=== PATIENT | female | born 1955 | race Caucasian/White ===

== ENCOUNTER → 2019-01-03 15:30 | Outpatient (CLI) | payer BC, SELFPAY ==
--- NOTE | 2019-01-03 15:33 | MM_ITS ---
PROCEDURE: MM DIG SCREENING MAMM BI W/CAD CLINICAL INDICATION: SCREENING There is a history of breast cancer patient's paternal aunt diagnosed before menopause. COMPARISON: DMSB DIG MAMM-SCREEN [facility] from 11/29/2012 DMSB DIG MAMM-SCREEN [facility] from 09/04/2014 DMSB DIG MAMM-SCREEN [facility] W/CAD from 09/22/2016 TECHNIQUE: Standard CC and MLO images were obtained. R2 CAD reviewed. FINDINGS: Prominent diffuse heterogenic fibroglandular densities are seen in both breasts. There is benign-appearing calcification right breast. There is a stable asymmetric density near the axillary tail left breast likely asymmetric glandular tissue there is no suspicious lesion and no suspicious microcalcifications. IMPRESSION: Diffusely dense parenchymal pattern with no suspicious lesions seen BI-RAD Category: 2 Benign Finding(s) FOLLOW-UP: 1YR 1 Year Follow-up (A letter has been sent to the patient regarding results of the study.) Dictated by: Dr. Calin Khan MD 01/08/2019 09:[address] Calin Khan MD in [place] 01/08/2019 09:29
== END ==
PROVIDERS: PCP Internal Medicine Adolescent Medicine; Visit Provider Nurse Practitioner Family
DX: Z12.31 Encounter for screening mammogram for malignant neoplasm of breast (principal)
CPT/HCPCS: 77067

== ENCOUNTER → 2020-08-20 09:57 | Outpatient (CLI) | payer BC, SELFPAY ==
--- NOTE | 2020-08-20 10:06 | XR_ITS ---
PROCEDURE: XR SHOULDER RT MIN 2V CLINICAL INDICATION: RT ANTERIOR SHOULDER PAIN COMPARISON: No exams were available for comparison FINDINGS: Three views show no fracture or dislocation. Some degenerative change of the acromioclavicular and glenohumeral joints. Visualized right upper lung is normal. IMPRESSION: No acute fracture or dislocation. Moderate degenerative change of the acromioclavicular and glenohumeral joints. Dictated by: Phong Hahn MD 08/20/2020 10:28 Phong Hahn MD in [place] 08/20/2020 10:28
== END ==
PROVIDERS: PCP Internal Medicine Adolescent Medicine; Visit Provider Internal Medicine Adolescent Medicine
DX: M25.511 Pain in right shoulder (principal)
CPT/HCPCS: 73030

== ENCOUNTER → 2021-12-25 13:17 | Outpatient (CLI) | payer MEDICARE, OTHER, SELFPAY | PROVIDERS: PCP Nurse Practitioner Family; Visit Provider Neurological Surgery | DX: Z01.812 Encounter for preprocedural laboratory examination (principal); Z20.822 Contact with and (suspected) exposure to COVID-19 | CPT/HCPCS: C9803; U0003; U0005 ==

== ENCOUNTER → 2021-12-29 08:13 | Outpatient (CLI) | payer MEDICARE, OTHER, SELFPAY ==
--- NOTE | 2021-12-29 08:17 | XR_ITS ---
FINAL REPORT TECHNIQUE: Bone mineral density was calculated of the lumbar spine, forearm and hip. CLINICAL HISTORY: .post menopausal,lt hip fx. FINDINGS: DEXA BONE DENSITY AXIAL SKELETON Using L1-4, the bone mineral density of the spine is 1.119 g/cm2, corresponding to T-score of 0.7. Using the right hip, the bone mineral density of the femoral neck is 0.851 g/cm2, corresponding to a T-score of 0.7. Using the left forearm, the bone mineral density of the distal 1/3 is 0.658 g/cm2, corresponding to a T-score of -0.6. NOTE: T-score: Standard deviation compared with peak bone mass of young adult mean. *Following the recommendations of the International Society of Bone densitometry, classification of hip BMD is based on the lower of two T-scores; total hip or femoral neck. IMPRESSION: Normal bone mineral density of the lumbar spine, forearm and hip. Reviewed, Interpreted and Dictated by Jorje Love III, MD Transcribed by Aarti Warren Authenticated and [facility]
--- NOTE | 2021-12-29 08:18 | MM_ITS ---
PROCEDURE INFORMATION: Exam: MG Bilateral Screening 3D Mammography Exam date and time: 12/29/2021 8:14 AM Age: 66 years old Clinical indication: Screening examination. Her daughter and maternal aunt had breast cancer. TECHNIQUE: Imaging protocol: Bilateral Screening tomosynthesis and 2D mammography including computer-aided detection (CAD) when performed. COMPARISON: 1. MG MM DIG SCREENING MAMM BI W/CAD 01/03/2019 3:57 PM 2. MG DMSB DIG MAMM-SCREEN [facility] W/CAD 09/22/2016 1:03 PM 3. MG DMSB DIG MAMM-SCREEN [facility] 09/04/2014 5:03 PM 4. MG DMSB DIG MAMM-SCREEN [facility] 11/29/2012 11:10 AM FINDINGS: MAMMOGRAPHY: Breast composition: The breasts are heterogeneously dense, which may obscure small masses. Mass: No suspicious mass. Architectural distortion: None. Calcifications: No suspicious calcifications. Asymmetric density: None. Skin thickening: None. Axillary adenopathy: None. IMPRESSION: No mammographic evidence of malignancy. Annual screening is recommended unless otherwise clinically indicated. ASSESSMENT: BI-RADS Category 1: Negative
--- NOTE | 2021-12-29 08:18 | US_ITS ---
FINAL REPORT CLINICAL HISTORY: RENAL CYST FINDINGS: RENAL ULTRASOUND Ultrasound images of the kidneys were obtained. Limited images of the liver parenchyma demonstrates normal echogenicity. Incidental note is made of gallstones in the gallbladder. The spleen is normal in size. The right kidney measures 10.2 cm in length. It is normal echogenicity. There is no hydronephrosis. There is a suspected parapelvic renal cyst measuring 2.3 cm. The left kidney measures 12 cm in length. It is normal echogenicity. There are several parapelvic cyst versus mild hydronephrosis. IMPRESSION: Suspected bilateral parapelvic cysts as above. If indicated, renal mass protocol CT may be helpful. Reviewed, Interpreted and Dictated by Jorje Love III, MD Transcribed by Caty Polk Authenticated and [facility]
== END ==
PROVIDERS: PCP Internal Medicine Adolescent Medicine; Visit Provider Internal Medicine Adolescent Medicine
DX: Z12.31 Encounter for screening mammogram for malignant neoplasm of breast (principal); Z78.0 Asymptomatic menopausal state; N28.1 Cyst of kidney, acquired
CPT/HCPCS: 76770; 77063; 77067; 77080

== ENCOUNTER → 2022-01-19 11:57 | Outpatient (CLI) | payer MEDICARE, OTHER, SELFPAY ==
--- NOTE | 2022-01-19 | XR_ITS ---
FINAL REPORT CLINICAL HISTORY: .OTHER OVERLAP SYNDROMES, OTHER FATIGUE. 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 FINDINGS: RIGHT HAND Three views demonstrate no acute fracture. There is no dislocation. The visualized joint spaces are normally aligned. There is zlmh-vj-[id number] narrowing of the DIP and PIP joints there is no bony erosion or periosteal reaction. The soft tissues are unremarkable. IMPRESSION: Narrowing of the DIP and PIP joints consistent with osteoarthritis. Reviewed, Interpreted and Dictated by Billy Fernandez MD Transcribed by Aarti Warren Authenticated and . [facility]
--- NOTE | 2022-01-19 | XR_ITS ---
FINAL REPORT CLINICAL HISTORY: .OTHER OVERLAP SYNDROMES, OTHER FATIGUE. 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 FINDINGS: RIGHT FOOT Three views of the right foot demonstrate no acute fracture or dislocation. There is mild to moderate hypertrophic changes of the 1st MTP joint. The soft tissues are unremarkable. IMPRESSION: Wzcc-mi-jfwhneyo hypertrophic changes of the 1st MTP joint. Reviewed, Interpreted and Dictated by Billy Fernandez MD Transcribed by Aarti Warren Authenticated and [facility]
--- NOTE | 2022-01-19 | XR_ITS ---
FINAL REPORT CLINICAL HISTORY: .OTHER OVERLAP SYNDROMES, OTHER FATIGUE. BMI, CARE HOME DRUG THERAPY. FINDINGS: LEFT FOOT Three views of the left foot demonstrate no acute fracture or dislocation. There is mild to moderate hypertrophic changes of the 1st MTP joint. The soft tissues are unremarkable. IMPRESSION: Wlzc-yt-jqmlmtox hypertrophic changes of the 1st MTP joint. Reviewed, Interpreted and Dictated by Billy Fernandez MD Transcribed by Aarti Warren Authenticated and . [facility]
--- NOTE | 2022-01-19 12:04 | XR_ITS ---
FINAL REPORT TECHNIQUE: Chest PA & Lateral CLINICAL HISTORY: .OTHER OVERLAP SYNDROMES, OTHER FATIGUE. 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 COMPARISON: 07/24/2017 FINDINGS: 2 views of the chest were performed. The heart size is normal. The mediastinum is within normal limits. There is no acute cardiopulmonary process. There are no pleural effusions. There is no pneumothorax. The bony thorax appears intact. IMPRESSION: No acute cardiopulmonary process. Reviewed, Interpreted and Dictated by Billy Fernandez MD Transcribed by Aarti Warren Authenticated and [facility]
--- NOTE | 2022-01-19 12:04 | XR_ITS ---
FINAL REPORT CLINICAL HISTORY: .OTHER OVERLAP SYNDROMES, OTHER FATIGUE. BMI, DETENTION DRUG THERAPY. FINDINGS: LEFT HAND Three views demonstrate no acute fracture. There is no dislocation. The visualized joint spaces are normally aligned. There is ivzq-we-uhunrveb narrowing of the DIP and PIP joints there is no bony erosion or periosteal reaction. The soft tissues are unremarkable. IMPRESSION: Narrowing of the DIP and PIP joints consistent with osteoarthritis. Reviewed, Interpreted and Dictated by Billy Fernandez MD Transcribed by Aarti Warren Authenticated and [facility]
== END ==
PROVIDERS: PCP Internal Medicine Adolescent Medicine; Visit Provider Internal Medicine Rheumatology
DX: M35.1 Other overlap syndromes (principal); R53.82 Chronic fatigue, unspecified; Z79.899 Other long term (current) drug therapy
CPT/HCPCS: 71046; 73130; 73630

== ENCOUNTER 2022-03-23 13:00 | Outpatient (RCR) | payer MEDICARE, OTHER, SELFPAY ==
--- NOTE | 2022-03-03 17:25 | HMH.PTOPEV ---
PT Outpatient Evaluation Rehab PT Outpatient Evaluation Start: 03/03/22 17:07 Freq: Status: Active Protocol: Document 03/03/22 17:07 OLEG (Rec: 03/03/22 17:14 OLEG [id number]) E-signed By Vish Mock, PT Outpatient Therapy Subjective History Subjective History Patient is a 67 year old female presenting to outpatient PT with reports of chronic LBP S/P L4/5 lumbar spine fusion performed . No recent imaging on file to report. She was previously being in pain management for injections with minimal improvements noted. Patient comorbidities include hx of B TKA, L SHARONDA, R rotator cuff tear and RA. Chief Complaint Pain,Spasms,Stiff,Weakness Symptom Type Ache,Dull Symptoms Relieved By Rest/Positioning,Heat,OTC Meds Symptoms Aggravated By Standing,Bending/Stooping, Physical Activity,Lifting Prior Functional Limitations None Current Functional Limitations Lifting,Housework,Standing, Recreation Activity,Walking, Bending/Stooping Symptom Description Intermittent Level of pain today (0-10) 2 Pain scale - at its best (0-10) 0 Pain scale - at its worst (0-10) 5 Lumbopelvic Eval Posture Thoracic Spine Posture Standing Position Neutral Lumbar Spine Posture Standing Position Increased Lordosis Assistive device Assistive Devices None / NA Gait Observation General Gait Pattern Observation No Deviations/Normal Palapation tenderness bilateral Lumbar/Sacral Palpation Findings Tenderness Lumbar/Sacral Palpation Overall Comment B PSIS and upper gluteal mm 2/ 4 Accessory Movement L4 bilateral L5 bilateral S1 bilateral Range of Motion Lumbar Spine Active Flexion Range of 62 Motion (degrees) Lumbar Spine Active Extension Range of 16 Motion (degrees) Left Lumbar Spine Lateral Flexion Active 16 Range of Motion (degrees) Right Lumbar Spine Lateral Flexion 9 Active Range of Motion (degrees) Manual Muscle Test Bilateral Knee Extension Strength Grade 5 Normal Knee Flexion Strength Grade 5 Normal Hip Flexion Strength Grade 5 Normal Extensor Hallucis Longus Strength Grade 5 Normal Ankle Dorsiflexion Strength Grade 5 Normal Gastronemius/Soleus Strength Grade 5 Normal Special Tests Lumbar Spine Screen
== END 2022-03-23 13:05 | disposition home or self-care (01) ==
LOC: PT 13:00
PROVIDERS: PCP Internal Medicine Adolescent Medicine; Visit Provider Nurse Practitioner Family
DX: M43.26 Fusion of spine, lumbar region (principal); Z98.1 Arthrodesis status
CPT/HCPCS: 97110; 97163; 97530

== ENCOUNTER → 2022-06-26 12:31 | Outpatient (CLI) | payer MEDICARE, OTHER, SELFPAY ==
[2022-06-26 12:47] LABS: Microscopic, Urine URINE MICROSCOPIC (MICROSCOPIC)
[2022-06-26 13:01] LABS: Appearance,Urine CLOUDY (Clear); Bilirubin,Urine Negative (Negative); Blood, Urine TRACE-I (Negative); Color,Urine YELLOW (Yellow); Glucose,Urine (UA) Negative (Negative); Ketones,Urine TRACE (Negative); Leukocyte Esterase,Urine 1+ (Negative); Nitrate,Urine POSITIVE (Negative); Protein,Urine TRACE (Negative); Specific Gravity, Urine >= 1.030 (1.005-1.030); Urobilinogen,Urine 0.2 EU/dl (0.2)
[2022-06-26 13:19] LABS: Bacteria,Urine 1+ /lpf; Mucus,Urine Trace /lpf; Squamous Epithelial Cell,Urine Occasional #/hpf (0-5); WBC,Urine 50-100 #/hpf (0-3)
== END ==
PROVIDERS: PCP Nurse Practitioner Family; Visit Provider Nurse Practitioner Family
DX: R30.0 Dysuria (principal); N39.0 Urinary tract infection, site not specified; B96.89 Other specified bacterial agents as the cause of diseases classified elsewhere
CPT/HCPCS: 81001; 87086; 87088; 87186

== ENCOUNTER → 2022-07-12 10:43 | Outpatient (CLI) | payer MEDICARE, OTHER, SELFPAY ==
--- NOTE | 2022-07-12 10:48 | US_ITS ---
FINAL REPORT CLINICAL HISTORY: PALP AREA soft tissue abdomen FINDINGS: US ABDOMINAL LIMITED Limited sonographic images of the soft tissues of the left lower rib area. Solid-appearing lesions in the subcutaneous tissues overlying the ribs at the area of the palpable abnormality. Larger lesion measures up to 14 mm is isoechoic to surrounding fat most suggestive of lipoma. No associated adjacent rib involvement. Findings probably reflect lipomas. IMPRESSION: Probable lipomas at the area of interest. Reviewed, Interpreted and Dictated by Usman Yang MD Transcribed by Jose Lafleur Authenticated and [facility]
== END ==
PROVIDERS: PCP Nurse Practitioner Family; Visit Provider Nurse Practitioner Family
DX: R93.5 Abnormal findings on diagnostic imaging of other abdominal regions, including retroperitoneum (principal); M79.9 Soft tissue disorder, unspecified
CPT/HCPCS: 76705

== ENCOUNTER → 2022-07-15 13:25 | Outpatient (CLI) | payer MEDICARE, OTHER, SELFPAY ==
[2022-07-15 13:37] LABS: Microscopic, Urine URINE MICROSCOPIC (MICROSCOPIC)
[2022-07-15 13:56] LABS: Appearance,Urine CLEAR (Clear); Bilirubin,Urine Negative (Negative); Blood, Urine Negative (Negative); Color,Urine YELLOW (Yellow); Glucose,Urine (UA) Negative (Negative); Ketones,Urine Negative (Negative); Leukocyte Esterase,Urine TRACE (Negative); Nitrate,Urine Negative (Negative); Protein,Urine TRACE (Negative); Specific Gravity, Urine >= 1.030 (1.005-1.030); Urobilinogen,Urine 0.2 EU/dl (0.2)
[2022-07-15 14:07] LABS: Bacteria,Urine Trace /lpf; Mucus,Urine Trace /lpf; WBC,Urine 20-50 #/hpf (0-3)
== END ==
PROVIDERS: PCP Nurse Practitioner Family; Visit Provider Nurse Practitioner Family
DX: R30.0 Dysuria (principal); B96.89 Other specified bacterial agents as the cause of diseases classified elsewhere
CPT/HCPCS: 81001; 87086; 87088; 87186

== ENCOUNTER → 2022-07-29 15:59 | Outpatient (CLI) | payer MEDICARE, OTHER, SELFPAY ==
[2022-07-29 16:03] LABS: Microscopic, Urine URINE MICROSCOPIC (MICROSCOPIC)
[2022-07-29 17:02] LABS: Appearance,Urine CLEAR (Clear); Bilirubin,Urine Negative (Negative); Blood, Urine Negative (Negative); Color,Urine YELLOW (Yellow); Glucose,Urine (UA) Negative (Negative); Ketones,Urine Negative (Negative); Leukocyte Esterase,Urine TRACE (Negative); Nitrate,Urine Negative (Negative); Protein,Urine Negative (Negative); Specific Gravity, Urine >= 1.030 (1.005-1.030); Urobilinogen,Urine 0.2 EU/dl (0.2)
[2022-07-29 17:14] LABS: Squamous Epithelial Cell,Urine Occasional #/hpf (0-5)
[2022-07-29 17:15] LABS: Bacteria,Urine 2+ /lpf
== END ==
PROVIDERS: PCP Nurse Practitioner Family; Visit Provider Nurse Practitioner Family
DX: R30.0 Dysuria (principal); B96.29 Other Escherichia coli [E. coli] as the cause of diseases classified elsewhere
CPT/HCPCS: 81001; 87086; 87088; 87186

== ENCOUNTER → 2022-08-06 10:51 | Outpatient (CLI) | payer MEDICARE, OTHER, SELFPAY ==
--- NOTE | 2022-08-06 10:55 | CT_ITS ---
FINAL REPORT TECHNIQUE: Axial images through the abdomen and pelvis were performed without contrast.This study was performed with techniques to keep radiation doses as low as reasonably achievable, (ALARA). Individualized dose reduction techniques using automated exposure control or adjustment of mA and/or kV according to the patient's size were employed. CLINICAL HISTORY: RECURRENT UTI FINDINGS: ABDOMEN: The lung bases are clear. The heart size is normal. Limited images of the liver demonstrate diffuse fatty infiltration. The gallbladder is present. The spleen is normal. No adrenal mass is identified. The aorta is normal in caliber. There is no significant free fluid or adenopathy. There is a tiny, nonobstructing stone in the superior pole of the right kidney. There are probable bilateral parapelvic renal cysts. There is no hydronephrosis. PELVIS: The appendix is not identified. There is moderate sigmoid diverticulosis without evidence of diverticulitis. The urinary bladder is unremarkable. There is no significant free fluid or adenopathy. Osseous structures demonstrate posterior interbody fusion at L4-5. IMPRESSION: Fatty infiltration of the liver. Tiny, nonobstructing right renal stone. Probable bilateral parapelvic renal cysts. Reviewed, Interpreted and Dictated by Billy Fernandez MD Transcribed by Melissa Damon Authenticated and [facility]
== END ==
PROVIDERS: PCP Nurse Practitioner Family; Visit Provider Nurse Practitioner Family
DX: N39.0 Urinary tract infection, site not specified (principal); Z87.442 Personal history of urinary calculi
CPT/HCPCS: 74176

== ENCOUNTER → 2022-11-09 09:27 | Outpatient (CLI) | payer MEDICARE, OTHER, SELFPAY ==
--- NOTE | 2022-11-09 09:40 | XR_ITS ---
FINAL REPORT CLINICAL HISTORY: DRY COUGH COMPARISON: None FINDINGS: Two views of the chest were obtained. The heart size and pulmonary vascularity are within normal limits. The mediastinum is normal. No acute pulmonary abnormality is identified. There is no pneumothorax. The bony thorax is intact. IMPRESSION: No active cardiopulmonary disease. Reviewed, Interpreted and Dictated by Jorje Love III, MD Transcribed by Arminda Combs Authenticated and . [facility]
== END ==
PROVIDERS: PCP Nurse Practitioner Family; Visit Provider Internal Medicine Adolescent Medicine
DX: J98.01 Acute bronchospasm (principal)
CPT/HCPCS: 71046

== ENCOUNTER → 2023-01-14 10:42 | Outpatient (CLI) | payer MEDICARE, OTHER, SELFPAY ==
--- NOTE | 2023-01-14 10:46 | MM_ITS ---
PROCEDURE INFORMATION: Exam: MG Bilateral Screening 3D Mammography Exam date and time: 01/14/2023 10:45 AM Age: 68 years old Clinical indication: Screening examination. Her daughter and maternal aunt had breast cancer. TECHNIQUE: Imaging protocol: Bilateral Screening tomosynthesis and 2D mammography including computer-aided detection (CAD) when performed. COMPARISON: 1. MG MM DIG SCREENING MAMM BI W/CAD 12/29/2021 8:14 AM 2. MG MM DIG SCREENING MAMM BI W/CAD 01/03/2019 3:57 PM 3. MG DMSB DIG MAMM-SCREEN [facility] W/CAD 09/22/2016 1:03 PM 4. MG DMSB DIG MAMM-SCREEN [facility] 09/04/2014 5:03 PM FINDINGS: MAMMOGRAPHY: Breast composition: The breasts are heterogeneously dense, which may obscure small masses. Mass: No suspicious mass. Architectural distortion: None. Calcifications: No suspicious calcifications. Asymmetric density: None. Skin thickening: None. Axillary adenopathy: None. IMPRESSION: No mammographic evidence of malignancy. Annual screening is recommended unless otherwise clinically indicated. ASSESSMENT: BI-RADS Category 1: Negative
== END ==
PROVIDERS: PCP Nurse Practitioner Family; Visit Provider Nurse Practitioner Family
DX: Z12.31 Encounter for screening mammogram for malignant neoplasm of breast (principal)
CPT/HCPCS: 77063; 77067

== ENCOUNTER 2023-05-11 12:45 | Outpatient (CLI) | payer MEDICARE, OTHER, SELFPAY ==
--- NOTE | 2023-05-11 14:11 | CA_ITS ---
APPROVED REPORT EXAM: Comprehensive 2D, Doppler, and color-flow Echocardiogram Soaking Room Operator: Carey Hassan RVT Ht: 5 ft 3 in Wt: 174lbs BSA: 1.82 BP: 110/60 mmHg Indications: PHTN,ABN EKG,EF CHECK FOR RHEUMOTID ARTHRITIS MEDS 2D Dimensions LA Volume 27.60 mL LA Volume Index 15.16 mL/m2 (M/F) 16-34 M-Mode Dimensions RVDd 2.83 cm (0.9-2.6) LA Diam 3.39 cm (1.9-4.0) LVDd 3.22 cm (3.5-5.7) LVDs 2.25 cm (3.5-5.7) IVSd 1.18 cm (0.6-1.1) PWd 0.72 cm (0.6-1.1) EF (Teich) 58.90% FS 30.10% EDV (Teich) 41.60 mL TAPSE 2.19 (<1.7) ESV (Teich) 17.10 mL LV Diastology E Decel Time 150 (160-240 msec) E/A Ratio 0.8 Aortic Valve MARITZA Index 1.35 cm2/m2 AoV Peak Kadeem. 166.0 (50-130 cm/s) AO Peak GR. 11.00 mmHg AO Mean GR. 5.30 (<5 mmHg) AO VTI 30.8 (18-25 cm) MARITZA (VTI) 2.53 (2.5-4.5 cm2) Mitral Valve MV E Max Kadeem. 79.0 (40-130 cm/s) MV A Velocity 105.0 (40-130 cm/s) E/A Ratio 0.75 MV PHT 44.0 ms Pulmonary Valve PV Peak Velocity 92.0 (50-150 cm/s) Tricuspid Valve TR P. Velocity 273.00 cm/s RAP Estimate 10.00 mmHg RVSP 39.80 mmHg Left Ventricle The left ventricle is normal size. The left ventricular systolic function is normal. The left ventricular ejection fraction is within the normal range. There is increased LV wall thickness. There is normal LV segmental wall motion. Transmitral Doppler flow pattern suggests impaired LV relaxation. LVEF is 50-55%. Right Ventricle The right ventricle is mildly dilated. The right ventricular systolic function is normal. Atria The left atrium size is normal. The right atrium size is normal. There is no Doppler evidence of interatrial shunt. Aortic Valve The aortic valve is mildly thickened. There is no aortic valvular stenosis. Trace aortic regurgitation. Mitral Valve The mitral valve leaflets are mildly thickened. Trace mitral regurgitation. No evidence of mitral valve stenosis. Tricuspid Valve The tricuspid valve leaflets are thin and pliable. Trace tricuspid regurgitation. RVSP is 25-30 mmHg. Pulmonic Valve The pulmonary valve is normal in structure. Trace pulmonic regurgitation. Great Vessels The aortic root is normal in size. The ascending aorta is not well-visualized. IVC is normal in size and collapses >50% with inspiration. Pericardium There is no pericardial effusion. Other Information Study Quality: Fair Conclusion Normal biventricular systolic function. Mild RV dilation. No significant valvular stenosis or regurgitation. Electronically signed by : Priyanka Espinoza MD 05/14/2023 23:14:31
[2023-05-11] MEDS: ALBUTEROL 0.083% 2.5 MG/3 ML NEB IH (15:37)
== END 2023-05-11 23:59 ==
LOC: RT 12:46
PROVIDERS: PCP Nurse Practitioner Family; Visit Provider Internal Medicine Rheumatology
DX: I27.20 Pulmonary hypertension, unspecified (principal)
CPT/HCPCS: 93306; 94060; 94726; 94729

== ENCOUNTER 2023-06-28 13:00 | Outpatient (RCR) | payer MEDICARE, OTHER, SELFPAY | END 2023-06-28 13:05 | disposition home or self-care (01) | LOC: OT 13:00 | PROVIDERS: PCP Nurse Practitioner Family; Visit Provider Orthopaedic Surgery | DX: M25.511 Pain in right shoulder (principal); S46.011S Strain of muscle(s) and tendon(s) of the rotator cuff of right shoulder, sequela; Z98.890 Other specified postprocedural states | CPT/HCPCS: 97010; 97014; 97110; 97140; 97164; 97165; 97530; G0283 ==

== ENCOUNTER 2023-07-08 08:42 | Outpatient (POV) | payer MEDICARE, OTHER, SELFPAY ==
--- NOTE | 2023-07-08 09:02 | A.OFFVIS_ITS ---
HPI Data of Consult Patient: new to practice Consult date: 07/08/23 Requesting Physician: Mona Lincoln APRN Primary Care Provider: Amber Bedolla APRN Consult Narrative Reason for consult: Low back pain, left hip pain, left groin pain History of present illness: Ms. Ceja is a 68 year old female who presents today as a new patient. She is a referral from Tarik Bellamy's office. Today she rates her pain a 10 out of 10. Patient states her pain is all in her low back along the left side that does go in and around her hip and into her groin down into her left leg. Patient states this started in November and has progressively worsened. Patient describes it as an aching, burning sensation. She states the pain interferes with her ability perform activities of daily living such as cooking and cleaning. She states the pain makes her limp when she is walking due to the pain and feeling like she has to take pressure off that extremity. She states that it can be aggravated while riding in a car. Patient does have a history of back pain and did have a lumbar fusion of L4-L5 in the past. Patient states that she has tried [id number] Tylenol and ibuprofen along with heat and ice and topicals with minimal relief. She does state that she uses Voltaren currently and that she will put it in multiple places to help some. She is currently prescribed meloxicam, gabapentin and Plaquenil with some mild improvement. Patient states that she does stay very active and that she is starting physical therapy coming up. Patient states that she has been to her neurosurgeon who stated that he question whether or not it was her L3-L4 level however she states she feels like the pain is much lower. Patient has had updated imaging. Patient has also had recent bursa injections about 6 weeks ago.She is currently managed with gabapentin from an outside provider. Her Harrison has been reviewed. CC: Mona Lincoln APRN [facility] Disclaimer: The information contained in this section may have been updated after the patient was seen, as this information can be updated by other users. Social History Smoking Status: Never smoker alcohol intake: current alcohol intake frequency: holidays/special occasions only current occupational status: other Travel in the last 8 weeks: None caffeine: Yes Review of Systems Review of Systems Review of systems:: pertinent systems reviewed and negative unless documented below Review of systems (narrative): Review of Systems: General: No recent weight changes, no fever, no sleep disturbances Respiratory: No cough, no shortness of air, no recurring pulmonary infections Cardiovascular/peripheral vascular: No chest pain, no palpitations, no edema, no shortness of breath Gastrointestinal: No new onset incontinence, normal bowel movements reported Genitourinary: No new onset incontinence Musculoskeletal: Low back pain, left hip pain, left groin pain, left leg pain Psychiatric: [Normal mood/affect] Neurological: [Denies weakness in extremities], [denies balance issues] Meds Home Medications and Allergies Home Medications Medication Instructions Recorded Confirmed Type conjugated estrogens 0.45 mg 0.45 mg PO DAILY Supplement 07/24/17 08/19/17 History tablet (Premarin) ibuprofen 800 mg-famotidine 26.6 1 ea PO DAILY Pain 07/24/17 08/19/17 History mg tablet (Duexis) lamotrigine 150 mg tablet 150 mg PO DAILY rash 07/24/17 08/19/17 History (Lamictal) valacyclovir 1 gram tablet 1,000 mg PO DAILY PRN fever 07/24/17 08/19/17 History (Valtrex) blisters omeprazole 20 mg capsule,delayed 20 mg PO DAILY stomach 08/19/17 08/19/17 History release New Prescriptions to Start Prescriptions: Allergies Allergy/AdvReac Type Severity Reaction Status Date / Time No Known Allergies Allergy Verified 08/17/17 16:01 Objective Narrative: Physical Exam: General: Alert and oriented x3, no acute distress, pleasant and cooperative Lungs: Respirations even and unlabored, symmetrical chest expansion Eyes: PERRL Musculoskeletal: Flexion and extension of lumbar [spine] somewhat guarded secondary to pain, [antalgic gait noted] point tenderness along left SI with positive left Karla's Neurological: Speech clear, no gross sensory deficit Additional findings Additional findings: MRI lumbar spine without contrast July 01, 2023 Findings: The gallbladder is full of stones. There are peripelvic cystic changes which are incompletely assessed on this study. There has been interval surgery with posterior fusion hardware and disc spacer material extending across the L4-L5 level. There is a small amount of acute bone edema noted at L3-L4 along the endplates. There is diffuse disc desiccation. The conus terminates at approximately the L1 level. There is a small disc bulge and posterior element hypertrophic changes at T11-T12 which are incompletely assessed on this lumbar MRI. There are sacral Tarlov cyst present. T12-L1: Small disc bulge with very small posterior central disc protrusion. No significant canal or neuroforaminal stenosis. L1-L2: Small disc bulge with minimal foraminal narrowing. Suspected right foraminal/extraforaminal small disc protrusion L2-L3: Small disc bulge with small posterior central disc protrusion. Mild articular facet disease. Mild foraminal narrowing. L3-L4: Small disc osteophyte complex. Small amount of fluid signal interposed between the articular facets. Mild canal and moderate to severe left foraminal narrowing. There is moderate right foraminal narrowing. Some image distortion associated with orthopedic hardware. L4-L5: Small disc osteophyte complex formation with mild to moderate foraminal narrowing. Canal is patent. Canal patency has improved. L5-S1: Disc osteophyte complex formation with small extrusion extending superiorly along the inferior endplate of L5 for approximately 3 mm. Mild articular facet disease. The disc osteophyte complex formation material extending out into the canal and foraminal region abutting the right exiting L5 nerve root descending S1 nerve root in particular. The S1 nerve root on the left appears more impinged compared to the right Assessment and Plan *Assessment and plan (1) Degenerative disc disease, lumbar: Status: Acute Category: Medical Code(s): M51.36 - Other intervertebral disc degeneration, lumbar region (2) Lumbar radiculopathy: Status: Acute Category: Medical Code(s): M54.16 - Radiculopathy, lumbar region (3) Sacroiliitis: Status: Acute Category: Medical Code(s): M46.1 - Sacroiliitis, not elsewhere classified (4) Lumbar nerve root impingement: Status: Acute Category: Medical Code(s): M54.16 - Radiculopathy, lumbar region (5) Lumbar facet arthropathy: Status: Acute Category: Medical Code(s): M47.816 - Spondylosis without myelopathy or radiculopathy, lumbar region (6) History of lumbar fusion: Status: Acute Category: Surgical Code(s): Z98.1 - Arthrodesis status Plan Patient is experiencing significant pain in her low back that does primarily radiating to her left hip and down into her left groin anyway. I have discussed with the patient that she did have point tenderness at her left SI and a positive left Karla's test and that may also be causing some of her symptoms. Due to her nerve root impingement that is noted more prominent of the S1 along the left side I have discussed with the patient that she may benefit from lumbar epidural steroid injection L5-S1. Risk and benefits were discussed with the patient and she would like to proceed forward with this plan of care. Patient has tried and failed conservative treatment such as oral medication, heat and ice, topicals, continued at home exercising and stretching for longer than 12 weeks. Patient will be scheduled for a LESI L5-S1 under fluoroscopy. I will also order the patient a compounded cream. Patient has been instructed to contact the clinic with any concerns before the next appointment. Dr. Peter has reviewed this note and agrees with this plan of care. This note was dictated using voice recognition software and make contain errors or omissions.
[2023-07-08 10:22] LABS: Microscopic, Urine URINE MICROSCOPIC (MICROSCOPIC)
[2023-07-08 10:35] VITALS: BP 146/64; PULSE 99; RESP 18; O2SAT 98; BMI 32.8
[2023-07-08 10:45] LABS: Basophils # 0.1 K/mm3 (0-0.2); Basophils % 0.8 % (0.1-2.0); Eosinophils # 0.3 K/mm3 (0.0-0.4); Hematocrit 37.5 % (37.0-47.0); Hemoglobin 12.5 g/dL (12.2-16.2); Lymphocytes % 22.8 % (10-50); Mean Corpuscular HGB Conc 33.4 g/dL (31.8-35.4); Mean Corpuscular Hemoglobin 31.7 pg (27.0-31.2); Mean Platelet Volume 8.2 fl (7.4-10.4); Monocytes # 0.6 K/mm3 (0.1-1.0); Monocytes % 6.9 % (1.7-9.3); Neutrophils # 5.9 K/mm3 (1.8-7.8); Neutrophils % 66.5 % (37.0-80.0); Platelet Count 223 K/mm3 (142-424); Red Blood Count 3.94 M/mm3 (4.20-5.40); Red Cell Distribution Width 14.5 % (11.5-17.5); White Blood Count 8.9 K/mm3 (4.8-10.8)
[2023-07-08 10:51] LABS: Appearance,Urine CLEAR (Clear); Bilirubin,Urine Negative (Negative); Blood, Urine Negative (Negative); Color,Urine YELLOW (Yellow); Glucose,Urine (UA) Negative (Negative); Ketones,Urine Negative (Negative); Leukocyte Esterase,Urine TRACE (Negative); Nitrate,Urine Negative (Negative); PH,Urine 5.5 (5.0-8.5); Protein,Urine Negative (Negative); Urobilinogen,Urine 0.2 EU/dl (0.2)
[2023-07-08 11:15] LABS: Bacteria,Urine Trace /lpf; Mucus,Urine Trace /lpf; Squamous Epithelial Cell,Urine Occasional #/hpf (0-5); WBC,Urine Occasional #/hpf (0-3)
[2023-07-08 11:18] LABS: Alanine Aminotransferase 29 U/L (12-78); Albumin Level 4.3 g/dl (3.5-5.0); Alkaline Phosphatase 95 U/L (38-126); Anion Gap 10.4 mEq/L (5-15); Aspartate Amino Transferase 26 U/L (14-36); Bilirubin,Total 0.6 mg/dl (0.2-1.3); Blood Urea Nitrogen 17 mg/dl (7-17); Calcium 9.7 mg/dl (8.4-10.2); Carbon Dioxide 25 mmol/L (22.0-30.0); Chloride 109 mmol/L (98-107); Creatinine Clearance Estimated 72 mL/min (50-200); Estimated Glomerular Filt Rate 72 ml/min (>60); GFR (African American) 87 ML/MIN (>60); Globulin 2.2 g/dL (1.3-3.2); Glucose 108 mg/dl (74-100); Potassium 4.4 mmoL/L (3.5-5.1); Sodium 140 mmol/L (136-145); Total Protein,Serum 6.5 g/dl (6.3-8.2)
[2023-07-08 11:24] LABS: C-Reactive Protein 46.6 mg/L (0-4)
[2023-07-08 11:40] LABS: Erythrocyte Sedimentation Rate 29 mm/hr (0-30)
[2023-07-09 09:37] LABS: Complement C3 177 mg/dL (82-167)
[2023-07-11 10:02] LABS: dsDNA AB Crithidia Negative (Negative)
== END 2023-07-08 23:59 | disposition home or self-care (01) ==
LOC: SC.PAIN 08:43
PROVIDERS: Internal Medicine Rheumatology; PCP Nurse Practitioner Family; Visit Provider Nurse Practitioner Family
DX: M79.7 Fibromyalgia (principal); M46.1 Sacroiliitis, not elsewhere classified; Z98.1 Arthrodesis status; M51.16 Intervertebral disc disorders with radiculopathy, lumbar region; M47.26 Other spondylosis with radiculopathy, lumbar region
CPT/HCPCS: 36415; 80053; 81001; 85025; 85651; 86140; 86161; 86225; 99202; G0463

== ENCOUNTER 2023-07-19 09:37 | Outpatient (CLI) | payer MEDICARE, OTHER, SELFPAY ==
--- NOTE | 2023-07-19 09:41 | CT_ITS ---
FINAL REPORT TECHNIQUE: Axial imaging of the lumbar spine was obtained without contrast. Sagittal and coronal reformatted images were also obtained and reviewed. This study was performed with techniques to keep radiation doses as low as reasonably achievable (ALARA). Individualized dose reduction techniques using automated exposure control or adjustment of mA and/or kV according to the patient's size were employed. CLINICAL HISTORY: BILATERAL LOW BACK PAIN s/p lumbar fusion december 2021 prior mri lumbar , report in pacs COMPARISON: None FINDINGS: There is no fracture. There is a prior fusion performed at the L4-5 level. There is mild retrolisthesis of L3 on L4.. There is vacuum phenomenon present at multiple intervertebral disc levels..There is no evidence of significant central canal stenosis. T12-L1: An annular bulge is present with facet arthropathy and osteophytes. L1-L2: An annular bulge is present with facet arthropathy and osteophytes. There is mild right neural foraminal narrowing. L2-L3: An annular bulge is present with osteophytes. There is mild right neural foraminal narrowing. L3-L4: An annular bulge is present with facet arthropathy and osteophytes. There is moderate right and severe left neural foraminal narrowing, as well as mild canal stenosis, with an AP canal diameter of 7 mm. L4-L5: Fusion has been performed at this level. Postoperative changes of a left-sided laminectomy. An annular bulge is present with facet arthropathy and osteophytes, as well as moderate bilateral neural foraminal narrowing. L5-S1: An annular bulge is present with facet arthropathy and osteophytes. There is vacuum phenomenon with mild degenerative change of the sacroiliac joints bilaterally. In addition, there are probable bilateral parapelvic cysts in the kidneys. IMPRESSION: Multilevel degenerative change, most severe at the L3-4 and L5-S1 levels as described.. Reviewed, Interpreted and Dictated by Jorje Love III, MD Transcribed by Arminda Comsb Authenticated and [facility]
== END 2023-07-19 23:59 | disposition home or self-care (01) ==
LOC: RAD 09:37
PROVIDERS: PCP Internal Medicine Adolescent Medicine; Visit Provider Physician Assistant Medical
DX: Z98.1 Arthrodesis status (principal); M48.061 Spinal stenosis, lumbar region without neurogenic claudication; M51.36 Other intervertebral disc degeneration, lumbar region; M54.50 Low back pain, unspecified
CPT/HCPCS: 72131

== ENCOUNTER 2023-07-25 13:02 | Outpatient (CLI) | payer MEDICARE, OTHER, SELFPAY ==
--- OUTSIDE RECORDS SUMMARY | 2023-07-25 13:05 | XMS_ITS | Patient Health Record ---
Author Name Unknown Organization [facility] Address [address] [place] [address] Care Team Providers Care Crown And Bridge Technician Name Role Phone Charles Beckford Primary Care Provider Amber Bedolla Unavailable [phone] ALLERGIES No Known Allergies RESULTS Component Value Reference Range Notes CT Scan : Abdomen/Pelvis sto ne protocol Reviewed date:08/11/2022 11:40:52 AM Interpretation: Performing Lab: Notes/Report: Mammogram : Bilateral Reviewed date:01/19/2023 05:36:31 PM Interpretation: Performing Lab: Notes/Report: M-Urine Culture Reviewed date:07/31/2022 01:16:36 PM Interpretation: Performing Lab: Notes/Report: CUU ORGANISM 1: Escheric hia coli RX WALLACE: R- Resistant S- Susceptible I- Intermediate * Not on [facility] CUU [place] Count >100,000 RX WALLACE: R- Resistant S- Susceptible I- Intermediate * [facility] RX WALLACE: R- Resistant S- Susceptible I- Intermediate * [facility] RX WALLACE: R- Resistant S- Susceptible I- Intermediate * [facility] Escherichia coli: REACTION RX WALLACE: R- Resistant S- Susceptible I- Intermediate * [facility] Amikacin <=8 S RX WALLACE: R- Resistant S- Susceptible I- Intermediate * [facility] Ampicillin <=4 S RX WALLACE: R- Resistant S- Susceptible I- Intermediate * Not on [facility] CUU Aztreonam <=2 S RX WALLACE: R- Resistant S- Susceptible I- Intermediate * [facility] Cefep[facility] <=[facility] S RX [facility]: R- Resistant S- Susceptible I- Intermediate * [facility] Ceftazid[facility] <=2 S RX WALLACE: R- Resistant S- Susceptible I- Intermediate * [facility] Ceftriax[facility] <=1 S RX WALLACE: R- Resistant S- Susceptible I- Intermediate * Not on [facility] Ciprofloxacin >2 R RX WALLACE: R- Resistant S- Susceptible I- Intermediate * Not on [facility] Ertapenem <=0.25 S RX WALLACE: R- Resistant S- Susceptible I- Intermediate * Not on [facility] Gentamicin <=2 S RX WALLACE: R- Resistant S- Susceptible I- Intermediate * Not on [facility] Levofloxacin >4 R RX WALLACE: R- Resistant S- Susceptible I- Intermediate * Not on [facility] Meropenem <=0.5 S RX WALLACE: R- Resistant S- Susceptible I- Intermediate * Not on [facility] Nitrofurantoin <=16 S RX WALLACE: R- Resistant S- Susceptible I- Intermediate * Not on [facility] Tetracycline <=2 S RX WALLACE: R- Resistant S- Susceptible I- Intermediate * Not on [facility] Tobramycin <=2 S RX WALLACE: R- Resistant S- Susceptible I- Intermediate * Not on [facility] Trimethoprim/Sulfame thoxaz ole <=0.5/9.5 S RX WALLACE: R- Resistant S- Susceptible I- Intermediate * [facility] Piperac[facility]/Tazobac fallon <=2/4 S RX WALLACE: R- Resistant S- Susceptible I- Intermediate * [facility]: R- Resistant S- Susceptible I- Intermediate * Not on [facility] M-Urinalysis and Microscopic Reviewed date:07/29/2022 05:21:18 PM Interpretation: Performing Lab: Notes/Report: UCOL YELLOW Yellow UAPP CLEAR Clear UPH 6.0 5.0-8.5 USG >= 1.030 1.005-1.030 UPRO Negative Negative UGLU Negative Negative UKET Negative Negative UBLD Negative Negative UNIT Negative Negative UBIL Negative Negative UURO 0.2 0.2 EU/dl ULEU TRACE Negative MRI : Lumbar Spine w/o contr ast Reviewed date:07/02/2023 08:26:05 AM Interpretation: Performing Lab: Notes/Report: X ray : Chest Reviewed date:11/11/2022 05:41:26 PM Interpretation: Performing Lab: Notes/Report: REASON FOR REFERRAL Reason Dr Alfaro for recurr ent UTI and nephrolithiasis Referral Organization [facility] Referring Provider First Name Amber Referring Provider Last Name Chioma Referring Provider Speciality [facility] Notes Amber Bedolla 11:04:43 AM > Not August 24 or September or ., Sabrina Bello 08/20/2022 11:38:30 AM > faxed records- [facility] Referral Priority Routine Referral Appointment Date 08/31/[address] Peter Diagnosis 1 Lumbar degenerative disc disease (M51.36) Diagnosis 2 Acute left-sided low back pain with left-sided sciatica (M54.42) Diagnosis 3 Lumbago with sciatic a, right side (M54.41) Referral Organization [facility] Referring Provider First Name Charles Referring Provider Last Name Analy Referring Provider Speciality Internal M edicine General Notes Mei Isabel 2023 02:43:48 PM >Referral sent to Dr. Peter Referral Priority Routine MEDICATIONS Medication SIG (Take, Route, Frequency, Duration) Notes Start Date End Date Status Valtrex 1 g 1 tab(s) orally once a day for 90 days prn 11/12/2020 Active hydroxychloroquine 200 mg 1 tab(s) orally 2 times a day for 90 days 04/08/2022 Active omeprazole 20 mg 1 cap(s) orally once a day for 90 days Active Mobic 15 mg 1 tab(s) orally once a day for 90 days Active Diclofenac Sodium Topical 1% 2 grams applied topically 4 times a day for 90 days 12/10/2022 Active Estradiol Vaginal 0.1 mg/g as directed intravaginally 2 times per week for 30 days 07/27/2022 Active LaMICtal 150MG 1 tab(s) orally 2 times a day for 90 days Active baclofen 10 mg 1 tab(s) orally 3 times a day as needed for muscle spasm for 90 days 07/11/2023 Active DULoxetine 20 mg 1 cap(s) orally 2 times a day Active ZyrTEC 10 mg 1 tab(s) orally once a day prn Active Vitamin B12 2500 mcg 1 tab(s) sublingual ly once a day for 30 day(s) Active amoxicillin 500 mg 1 cap(s) orally 3 times a day for 10 day(s) 04/27/2023 Active EPINEPHrine 0.3 mg 0.3 mg intramuscularly once for 1 dose(s) ok for generic 06/04/2016 Active fluconazole 150 mg 1 tab(s) orally once and repeat if needed for 3 days 04/27/2023 Active IMMUNIZATIONS Vaccine Route Administration Date Status Comme nts Adacel (Tdap) IM Intramuscular 03/14/2008 Administered Flublok IM Intramuscular 11/29/2019 Administered Fluvirin--Influenza vaccine 3+ year Unknown 12/26/2006 Administered Fluvirin--Influenza vaccine 3+ year IM Intramuscular 01/09/2008 Administered Fluvirin--Influenza vaccine 3+ year IM Intramuscular 11/29/2008 Administered Fluvirin--Influenza vaccine 3+ year IM Intramuscular 12/11/2009 Administered Fluvirin--Influenza vaccine 3+ year IM Intramuscular 12/18/2010 Administered Fluvirin--Influenza vaccine 3+ year IM Intramuscular 12/07/2011 Administered Fluvirin--Influenza vaccine 3+ year IM Intramuscular 12/10/2013 Administered FLUZONE 6MO - OLDER IM Intramuscular 12/20/2018 Administer ed Fluzone High Dose IM Intramuscular 01/06/2021 Administered Fluzone High Dose IM Intramuscular 12/09/2021 Administered H1N1 Vaccine IM Intramuscular 12/30/2008 Administered Hep A Adult 2 Dose IM Intramuscular 02/27/2018 Administere d Hep A Adult 2 Dose IM Intramuscular 12/20/2018 Administere d Influenza-Fluzone 3+years (NON-MEDICARE) IM Intramuscular 12/24/2014 Administered Influenza-Fluzone 3+years (NON-MEDICARE) IM Intramuscular 12/29/2017 Administered Prevnar PCV-20 (Pneumococcal conjugate 20) IM Intramuscular 12/09/2021 Administered SOCIAL HISTORY Sex Assigned At : Social History Observation Description Sex Assigned At Unknown PROBLEMS Problem Type ICD Code Onset Dates Problem Status W/U Status Risk SNOMED Code Notes Problem Lumbago with sciatica, right side (M54.41) Active confirmed 151772574 Problem BMI 31.0-31.9,adult (Z68.31) Active confirmed 931640101 Problem Other chronic pain (G89.29) Active confirmed 83851198 Problem Gastroesophageal reflux disease, esophagitis presence not specified (K21.9) Active confirmed 186333500 Problem Primary osteoarthritis of both knees (M17.0) Active confirmed 027843635 Problem Mood disorder (F39) Active confirmed 46 687699 Problem Iron deficiency anemia, unspecified iron deficiency anemia type (D50.9) Active confirmed 92916670 Problem Lumbar degenerative disc disease (M51.36) Active confirmed 59467944 Problem Arthralgia of multiple sites (M25.50) Active confirmed 74052653 Problem BMI 29.0-29.9,adult (Z68.29) Active confirmed 03164780 Problem 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) Active confirmed 234650097 Problem Renal cyst (N28.1) Active confirmed 722 154557 Problem Acute left-sided low back pain with left-sided sciatica (M54.42) Active confirmed 923721389 Problem Primary osteoarthritis of left hip (M16.12) Active confirmed 036622161244092 Problem Suprapatellar bursitis of left knee (M70.52) Active confirmed 9577291597472716 Problem Esophageal dysphagia (R13.10) Active confirmed 19990053 Problem Suprapatellar bursitis of right knee (M70.51) Active confirmed 3128520527864732 Problem Postoperative examination (Z09) Active confirmed 759154341 Problem Difficulty walking (R26.2) Active confirmed 804554408 VITAL SIGNS Heart Rate 88 /min 07/26/2022 Temperature 97.6 degrees Fahrenheit 07/26/2022 Blood pressure diastolic 84 mm Hg 07/26/2022 Height 63 in 07/26/2022 Blood pressure systolic 150 mm Hg 07/26/2022 Weight 181.6 lbs 07/26/2022 BMI 32.17 kg/m2 07/26/2022 Encounters Encounter Location Date Provider Diagnosis [facility] [address] [place] [address] 07/26/2022 Amber Chioma Dysuria R30.0 [facility] [address] [place] [address] 07/27/2022 Amber Chioma [facility] [address] [place] [address] 07/30/2022 Amber Chioma [facility] [address] [place] [address] 08/03/2022 Amber Chioma History of nephrolithiasis Z87.442 and Recurrent UTI N39.0 [facility] [address] [place] [address] 08/13/2022 Amber Chioma [facility] [address] [place] [address] 08/17/2022 Amber Chioma [facility] [address] [place] [address] 11/08/2022 Charles Besson Cough due to bronchospasm J98.01 [facility] [address] [place] [address] 11/16/2022 Amber Chioma [facility] [address] [place] [address] 12/10/2022 Amber Chioma [facility] [address] [place] [address], [place] [address] 01/12/2023 Amber Chioma Screening mammogram, encounter for Z12.31 [facility] [address] [place] [address] 01/22/2023 Amber Chioma [facility] [address] [place] [address] 02/09/2023 Amber Chioma [facility] [address] [place] [address] 04/13/2023 Amber Chioma [facility] [address] [place] [address] 04/27/2023 Amber Chioma [facility] [address] [place] [address] 06/23/2023 Amber Bedolla Lumbago with sciatic a, right side M54.41 ; Other chronic pain G89.29 ; S/P lumbar fusion Z98.1 and Right leg weakness R29.898 [facility] [address] [facility] [place], [place] [address] 06/30/2023 Amber Bedolla Lumbar degenerative disc disease M51.36 and Acute left-sided low back pain with left-sided sciatica M54.42 [facility] [address] [facility] [address] [place], [place] [address] 07/11/2023 Amber Bedolla [facility] [address] [facility] [address] [place], [place] [address] 07/18/2023 Amber Bedolla [facility] [address] [facility] [address] [place], [place] [address] 07/19/2023 Amber Bedolla [facility] [address] [facility] [address] [place], [place] [address] 07/25/2023 Amber Bedolla Left hip pain M25.55 2 ; Difficulty walking R26.2 and Status post left hip replacement Z96.642 ASSESSMENTS Encounter Date Diagnosis Assessment Notes Treatment Notes Treatment Clinical Notes 07/26/2022 Dysuria (ICD-10 - R30.0) Consider preventative antibiotic if her urine culture is again positive 08/03/2022 Recurrent UTI (ICD-1 0 - N39.0) 08/03/2022 History of nephrolithiasis (ICD-10 - Z87.442) 11/08/2022 Cough due to bronchospasm (ICD-10 - J98.01) 01/12/2023 Screening mammogram, encounter for (ICD-10 - Z12.31) 06/23/2023 Lumbago with sciatica, right side (ICD-10 - M54.41) 06/23/2023 Other chronic pain (ICD-10 - G89.29) 06/30/2023 Lumbar degenerative disc disease (ICD-10 - M51.36) 06/30/2023 Acute left-sided low back pain with left-sided sciatica (ICD-10 - M54.42) 07/25/2023 Left hip pain (ICD-1 0 - M25.552) 06/23/2023 S/P lumbar fusion (ICD-10 - Z98.1) 07/25/2023 Difficulty walking (ICD-10 - R26.2) 06/23/2023 Right leg weakness (ICD-10 - R29.898) 07/25/2023 Status post left hip replacement (ICD-10 - Z96.642) PLAN OF TREATMENT Pending Test Test Name Order Date X ray : Hip, Left 07/25/2023 X ray : Pelvis 06/10/2012 Bone Density 07/09/2006 Mammogram : Diagnostic 07/09/2006 occult blood 05/31/2013 Echocardiogram 05/31/2013 Physical Therapy 03/10/2020 Physical Therapy 08/08/2019 C-Peptide Level 05/07/2010 C-INSULIN 05/07/2010 C-CBC 09/13/2016 C-CMP 09/13/2016 C-LIPID PANEL 09/13/2016 C-LIPID PANEL 10/18/2011 C-TSH 10/18/2011 C-MELINDA 05/30/2013 C-MELINDA 07/19/2011 C-VITAMIN B12 10/18/2011 C-KIDNEY STONE ANALYSIS 01/27/2015 C-ASO TITER 07/19/2011 G-ZHKO-XYRMEJ CITRULLINATED PEPTIDE 05/07 Ultrasound : Soft Tissue Abdomen 023 C-TIBC 05/07/2010 M-Erythrocyte Sedimentation Rate 019 M-Lipid Panel 10/17/2019 M-Lipid Panel 12/20/2018 M-Vitamin D 25 Hydroxy 12/20/2018 M-RA Latex Turbid. 12/20/2018 Physical Therapy : Aquatic Therapy 02/22 Future Test Test Name Order Date Mammogram : Left breast 02/10/2010 Insurance Providers Payer Name Payer Address Payer Phone Subscriber Number Group Number Insured Name Patient Relationship to Insured Coverage Start Date Coverage End Date MEDICARE PART [place] [place] [address] [id number] Nory Ceja Self - patient is the insured [employer] [address] [place] [address] [phone] Marcial, Nory Self - patient is the insured MEDICATIONS ADMINISTERED Medication Instructions Date of Administration Dosage Notes Kenalog 11/28/2015 1 mL MEDICAL (GENERAL) HISTORY Medical History History ICD Code hormone replacement therapy Bilat knee osteoarthritis GERD with stricture of esophagus Mood disorder LS DDD Renal cysts rheumatoid arthritis Surgical History Surgery Date(Month/Year) eye surgery during childhood EGD August 2017 with chronic gastritis, ne gative biopsies right knee meniscus repair 2017, Dr Yi pe Left total knee replacement 01/2019 right total knee replacement 02/2019 LEFT hip replacement 2019 Lumbar fusion L4-L5 12/2021 Hospitalization History Reason Date(Month/Year) [facility] - Left hip replacement [facility]-right total knee 02/2019 [facility]- Left total knee 01/2019 x 3 UTI 01/1980
--- NOTE | 2023-07-25 13:06 | XR_ITS ---
FINAL REPORT CLINICAL HISTORY: LT HIP PAIN,DIFFICULTY WALKING,S/P LT HIP REPLACEMENT FINDINGS: LEFT HIP 2 views of the left hip are obtained. There is no acute fracture or dislocation. There is a left joint prosthesis. Lumbar fusion is seen of the lower lumbar spine. Visualized joint spaces are normally aligned. There is no acute soft tissue abnormality. IMPRESSION: No acute bony abnormality. Reviewed, Interpreted and Dictated by Billy Fernandez MD Transcribed by Melissa Damon Authenticated and [facility]
== END 2023-07-25 23:59 | disposition home or self-care (01) ==
LOC: RAD 13:03
PROVIDERS: PCP Nurse Practitioner Family; Visit Provider Nurse Practitioner Family
DX: M25.552 Pain in left hip (principal); R26.2 Difficulty in walking, not elsewhere classified; Z96.642 Presence of left artificial hip joint
CPT/HCPCS: 73502

== ENCOUNTER 2023-07-26 09:40 | Day surgery (SDC) | payer MEDICARE, OTHER, SELFPAY ==
--- OUTSIDE RECORDS SUMMARY | 2023-07-26 09:43 | XMS_ITS | Patient Health Record ---
Author Name Unknown Organization [facility] Address [address] [place] [address] Care Team Providers Care Helicopter Technician Name Role Phone Charles Beckford Primary Care Provider [phone] Amber Bedolla Unavailable [phone] ALLERGIES No Known Allergies RESULTS Component Value Reference Range Notes CT Scan : Abdomen/Pelvis sto ne protocol Reviewed date:08/11/2022 11:40:52 AM Interpretation: Performing Lab: Notes/Report: X ray : Chest Reviewed date:11/11/2022 05:41:26 PM Interpretation: Performing Lab: Notes/Report: Mammogram : Bilateral Reviewed date:01/19/2023 05:36:31 PM Interpretation: Performing Lab: Notes/Report: MRI : Lumbar Spine w/o contr ast Reviewed date:07/02/2023 08:26:05 AM Interpretation: Performing Lab: Notes/Report: M-Urine Culture Reviewed date:07/31/2022 01:16:36 PM Interpretation: Performing Lab: Notes/Report: CUU ORGANISM 1: Escheric hia coli RX WALLACE: R- Resistant S- Susceptible I- Intermediate * [facility] [place] Count >100,000 RX WALLACE: R- Resistant S- Susceptible I- Intermediate * Not on Danny [facility] Formulary CUU RX WALLACE: R- Resistant S- Susceptible I- Intermediate * Not on Danny [facility] Formul[facility] CUU RX WALLACE: R- Resistant S- Susceptible I- Intermediate * Not on Danny [facility] Formul[facility] CUU Escherichia coli: REACTION RX WALLACE: R- Resistant S- Susceptible I- Intermediate * Not on Danny [facility] Form[facility] CUU Amikacin <=8 S RX WALLACE: R- Resistant S- Susceptible I- Intermediate * [facility] Amp[facility] <=4 S RX [facility]: R- Resistant S- Susceptible I- Intermediate * [facility] Aztreonam <=2 S RX WALLACE: R- Resistant S- Susceptible I- Intermediate * [facility] Cefepime <=1 S RX WALLACE: R- Resistant S- Susceptible I- Intermediate * [facility] Ceftazidime <=2 S RX WALLACE: R- Resistant S- Susceptible I- Intermediate * [facility] Ceftriaxone <=1 S RX WALLACE: R- Resistant S- Susceptible I- Intermediate * Not on [facility] Ciprofloxacin >2 R RX WALLACE: R- Resistant S- Susceptible I- Intermediate * Not on [facility] Ertapenem <=0.25 S RX WALLACE: R- Resistant S- Susceptible I- Intermediate * [facility] Gentamicin <=2 S RX WALLACE: R- Resistant S- Susceptible I- Intermediate * Not on [facility] Levofloxacin >4 R RX WALLACE: R- Resistant S- Susceptible I- Intermediate * Not on [facility] Meropenem <=0.5 S RX WALLACE: R- Resistant S- Susceptible I- Intermediate * [facility] Nitrofurantoin <=16 S RX WALLACE: R- Resistant S- Susceptible I- Intermediate * [facility] Tetracycline <=2 S RX WALLACE: R- Resistant S- Susceptible I- Intermediate * [facility] Tobramycin <=2 S RX WALLACE: R- Resistant S- Susceptible I- Intermediate * [facility] Trimethoprim/Sulfame thoxaz ole <=0.5/9.5 S RX WALLACE: R- Resistant S- Susceptible I- Intermediate * [facility] Piperacillin/Tazobac fallon <=2/4 S RX WALLACE: R- Resistant S- Susceptible I- Intermediate * [facility] RX [facility]: R- Resistant S- Susceptible I- Intermediate * Not on [facility] M-Urinalysis and Microscopic Reviewed date:07/29/2022 05:21:18 PM Interpretation: Performing Lab: Notes/Report: UCOL YELLOW Yellow UAPP CLEAR Clear UPH 6.0 5.0-8.5 USG >= 1.030 1.005-1.030 UPRO Negative Negative UGLU Negative Negative UKET Negative Negative UBLD Negative Negative UNIT Negative Negative UBIL Negative Negative UURO 0.2 0.2 EU/dl ULEU TRACE Negative REASON FOR REFERRAL Reason Dr Alfaro for recurr ent UTI and nephrolithiasis Referral Organization [facility] Referring Provider First Name Amber Referring Provider Last Name Chioma Referring Provider Formerly [facility] Notes Amber Bedolla 11:04:43 AM > Not August 24 or September or ., Sabrina Bello 08/20/2022 11:38:30 AM > faxed records- Jason [facility] Referral Priority Routine Referral Appointment Date 08/31/[address] Peter Diagnosis 1 Lumbar degenerative disc disease (M51.36) Diagnosis 2 Acute left-sided low back pain with left-sided sciatica (M54.42) Diagnosis 3 Lumbago with sciatic a, right side (M54.41) Referral Organization [facility] Referring Provider First Name Charles Referring Provider Last Name Analy Referring Provider [facility] General Notes Mei Isabel 2023 02:43:48 PM >Referral sent to Dr. Peter Referral Priority Routine Reason MRI left hip at [facility] Diagnosis 1 Left hip pain (M25.5 52) Referral Organization [facility] Referring Provider First Name Amber Referring Provider Last Name Chioma Referring Provider [facility] Notes Sabrina Bello 09:08:24 AM > faxed and they will call her to schedule Referral Priority Routine MEDICATIONS Medication SIG (Take, Route, Frequency, Duration) Notes Start Date End Date Status baclofen 10 mg 1 tab(s) orally 3 times a day as needed for muscle spasm for 90 days 07/11/2023 Active Vitamin B12 2500 mcg 1 tab(s) sublingual ly once a day for 30 day(s) Active Mobic 15 mg 1 tab(s) orally once a day for 90 days Active LaMICtal 150MG 1 tab(s) orally 2 times a day for 90 days Active hydroxychloroquine 200 mg 1 tab(s) orally 2 times a day for 90 days 04/08/2022 Active Valtrex 1 g 1 tab(s) orally once a day for 90 days prn 11/12/2020 Active EPINEPHrine 0.3 mg 0.3 mg intramuscularly once for 1 dose(s) ok for generic 06/04/2016 Active ZyrTEC 10 mg 1 tab(s) orally once a day prn Active Diclofenac Sodium Topical 1% 2 grams applied topically 4 times a day for 90 days 12/10/2022 Active omeprazole 20 mg 1 cap(s) orally once a day for 90 days Active Estradiol Vaginal 0.1 mg/g as directed intravaginally 2 times per week for 30 days 07/27/2022 Active IMMUNIZATIONS Vaccine Route Administration Date Status [...] with sciatica, right side (M54.41) Active confirmed 361498894 Problem BMI 31.0-31.9,adult (Z68.31) Active confirmed 796252934 Problem Other chronic pain (G89.29) Active confirmed 61872631 Problem Gastroesophageal reflux disease, esophagitis presence not specified (K21.9) Active confirmed 155874848 Problem Primary osteoarthritis of both knees (M17.0) Active confirmed 833134215 Problem Mood disorder (F39) Active confirmed 46 956628 Problem Iron deficiency anemia, unspecified iron deficiency anemia type (D50.9) Active confirmed 32166365 Problem Lumbar degenerative disc disease (M51.36) Active confirmed 13044431 Problem Arthralgia of multiple sites (M25.50) Active confirmed 02494838 Problem BMI 29.0-29.9,adult (Z68.29) Active confirmed 11358418 Problem 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) Active confirmed 619998272 Problem Renal cyst (N28.1) Active confirmed 722 127191 Problem Acute left-sided low back pain with left-sided sciatica (M54.42) Active confirmed 068103922 Problem Primary osteoarthritis of left hip (M16.12) Active confirmed 480259095492257 Problem Suprapatellar bursitis of left knee (M70.52) Active confirmed 4961760967368584 Problem Esophageal dysphagia (R13.10) Active confirmed 20119236 Problem Suprapatellar bursitis of right knee (M70.51) Active confirmed 0284368571146921 Problem Postoperative examination (Z09) Active confirmed 162681461 Problem Difficulty walking (R26.2) Active confirmed 343919293 VITAL SIGNS Heart Rate 68 /min 07/25/2023 Temperature 98 degrees Fahrenheit 07/25/2023 Blood pressure diastolic 84 mm Hg 07/25/2023 Height 63 in 07/25/2023 Blood pressure systolic 122 mm Hg 07/25/2023 Weight 181 lbs 07/25/2023 BMI 32.06 kg/m2 07/25/2023 Encounters Encounter Location Date Provider Diagnosis [facility] [address] [place] [address] 07/26/2022 Amber Chioma Dysuria R30.0 [facility] [address] [place] [address] 07/25/2023 Amber Chioma Left hip pain M25.55 2 ; Lumbar degenerative disc disease M51.36 ; Decreased range of left hip movement M25.652 and Status post left hip replacement Z96.642 [facility] [address] [place] [address] 07/27/2022 Amber Chioma [facility] [address] [place] [address] 07/30/2022 Amber Chioma [facility] [address] [place] [address] 08/03/2022 Amber Chioma History of nephrolithiasis Z87.442 and Recurrent UTI N39.0 [facility] [address] [place] [address] 08/13/2022 Amber Chioma [facility] [address] [place] [address] 08/17/2022 Amber Chioma [facility] [address] [place] [address] 11/08/2022 Charles Besson Cough due to bronchospasm J98.01 [facility] [address] [place] [address] 11/16/2022 Amber Chioma [facility] [address] [place] [address] 12/10/2022 Amber Chioma [facility] [address] [facility] [address] [place] [address] 01/12/2023 Amber Chioma Screening mammogram, encounter for Z12.31 [facility] [address] [place] [address] 01/22/2023 Amber Chioma [facility] [address] [place] [address] 02/09/2023 Amber Chioma [facility] [address] [place], [place] [address] 04/13/2023 Amber Chioma [facility] [address] [place], [place] [address] 04/27/2023 Amber Chioma [facility] [address] [facility] [address] [place], [place] [address] 06/23/2023 Amber Bedolla Lumbago with sciatic a, right side M54.41 ; Other chronic pain G89.29 ; S/P lumbar fusion Z98.1 and Right leg weakness R29.898 [facility] [address] [facility] [address] [place], [place] [address] 06/30/2023 Amber Bedolla Lumbar degenerative disc disease M51.36 and Acute left-sided low back pain with left-sided sciatica M54.42 [facility] [address] [facility] [address] [place] [address] 07/11/2023 Amber Chioma [facility] [address] [facility] [address] [place] [address] 07/18/2023 Amber Chioma [facility] [address] [facility] [address] [place] [address] 07/19/2023 Amber Chioma [facility] [address] [facility] [address] [place] [address] 07/25/2023 Amber Bedolla Left hip pain M25.55 2 ; Difficulty walking R26.2 and Status post left hip replacement Z96.642 [facility] [address] [facility] [address] [place] [address] 07/26/2023 Amber Bedolla Weight gain R63.5 ASSESSMENTS Encounter Date Diagnosis Assessment Notes Treatment [...] Left hip pain (ICD-1 0 - M25.552) 07/25/2023 Left hip pain (ICD-1 0 - M25.552) Recommend MRI given her h/o replacement and trauma 5 months ago with increasing pain, decreased mobility 07/25/2023 Lumbar degenerative disc disease (ICD-10 - M51.36) keep appt with pain management for injections this week 07/26/2023 Weight gain (ICD-10 - R63.5) 07/25/2023 Decreased range of left hip movement (ICD-10 - M25.652) 06/23/2023 S/P lumbar fusion (ICD-10 - Z98.1) 07/25/2023 Difficulty walking (ICD-10 - R26.2) 06/23/2023 Right leg weakness (ICD-10 - R29.898) 07/25/2023 Status post left hip replacement (ICD-10 - Z96.642) 07/25/2023 Status post left hip replacement (ICD-10 - Z96.642) PLAN OF TREATMENT Pending Test Test Name Order Date MRI : Hip, Left 07/25/2023 X ray : Hip, Left 07/25/2023 X ray : Pelvis 06/10/2012 Bone Density 07/09/2006 Mammogram : Diagnostic 07/09/2006 occult blood 05/31/2013 Echocardiogram 05/31/2013 Physical Therapy 08/08/2019 Physical Therapy 03/10/2020 C-Peptide Level 05/07/2010 C-INSULIN 05/07/2010 C-CBC 09/13/2016 C-CMP 09/13/2016 C-LIPID PANEL 09/13/2016 C-LIPID PANEL 10/18/2011 C-TSH 10/18/2011 C-MELINDA 05/30/2013 C-MELINDA 07/19/2011 C-VITAMIN B12 10/18/2011 C-KIDNEY STONE ANALYSIS 01/27/2015 C-ASO TITER 07/19/2011 P-APEX-FNYKYU CITRULLINATED PEPTIDE 05/07 Ultrasound : Soft Tissue Abdomen 023 C-TIBC 05/07/2010 M-Erythrocyte Sedimentation Rate 019 M-Lipid Panel 12/20/2018 M-Lipid Panel 10/17/2019 M-Vitamin D 25 Hydroxy 12/20/2018 M-RA Latex Turbid. 12/20/2018 Physical Therapy : Aquatic Therapy 02/22 LIPID PANEL, STANDARD (7600) 07/26/2023 HEMOGLOBIN A1c (496) 07/26/2023 TSH W/REFLEX TO FT4 (54267) 07/26/2023 Future Test Test Name Order Date Mammogram : Left breast 02/10/2010 Insurance Providers Payer Name Payer Address Payer Phone Subscriber Number Group Number Insured Name Patient Relationship to Insured Coverage Start Date Coverage End Date [place] [address] [place] [address] [id number] Nory Ceja Self - patient is the insured [employer] [address] [place] [address] [phone] Nory Ceja Self - patient is the insured MEDICATIONS [...] biopsies right knee meniscus repair 2017, Dr Kassidy garner Left total knee replacement 01/2019 right total knee replacement 02/2019 LEFT hip replacement 2019 Lumbar fusion L4-L5 12/2021 Hospitalization History Reason Date(Month/Year) [facility] - Left hip replacement [facility]-right total knee 02/2019 [facility]- Left total knee 01/2019 x 3 UTI 01/1980
[2023-07-26 10:25] LABS: Chol/HDL Ratio 2.1 (1-3.5); Cholesterol 186 mg/dl (140-200); HDL Cholesterol 87 mg/dl (40-60); Triglycerides 162 mg/dl (30-150); VLDL Cholesterol 32 mg/dL (0-40)
[2023-07-26 10:34] VITALS: BP 177/81; PULSE 91; RESP 18; O2SAT 97
[2023-07-26] MEDS: methylPREDNISolone ACETATE 80MG/ML VIAL 80 MG (10:35)
--- NOTE | 2023-07-26 10:35 | EXP.PAIN.PRO ---
Procedure Date: 07/26/23 Time: 10:35 Anesthesiologist:: Wes Daigle CRNA Complications:: None Pre-procedure Diagnosis:: Degenerative disc lumbar spine multilevels. Lumbar radiculopathy. Lumbar spondylosis. Lumbar postlaminectomy syndrome. Post-procedure Diagnosis:: Same. Indications for Procedure:: Patient is a pleasant 68-year-old female comes our clinic today for lumbar epidural steroid injection at the L5-S1 level. Patient reports low lumbar back pain she describes as constant, dull, aching, burning. Patient also reports bilateral hip and leg radicular symptoms to the foot right greater than left. Patient is status post lumbar L4-5 discectomy and fusion. Procedure Details:: Procedure: Lumbar epidural steroid injection under fluoroscopy Informed consent was obtained and the risks and benefits of the procedure were explained to the patient. The patient was taken to the procedure room and noninvasive monitors placed, including noninvasive blood pressure cuff and pulse oximeter. The back was viewed using C-arm Fluoroscopy and prepped using Chloraprep as a cleansing solution and the L5-S1 interspace was palpated. Skin and subcutaneous tissues were anesthetized using lidocaine 1.5% and a 25-gauge needle. After this, an 18-gauge Touhy epidural needle was placed into the L5-S1 interspace and advanced using fluoroscopic guidance and loss of resistance to air until the epidural space was encountered. After confirmation of needle placement in the epidural space, with dye, a solution containing normal saline, 3 mL and Depo-Medrol 80 mg were incrementally injected into the lumbar epidural space. The patient tolerated the procedure well with no complications. The patient was observed in the Pain Clinic and then discharged home neurologically intact. Plan and Disposition:: Patient was discharged without incident.
[2023-07-26 10:36] VITALS: BP 184/88; PULSE 95; RESP 18; O2SAT 100; BMI 32.8
[2023-07-26 10:36] LABS: Direct LDL Cholesterol 82.34 mg/dL (100-129)
[2023-07-26 10:39] VITALS: BP 177/81; PULSE 89; RESP 16; O2SAT 97
[2023-07-26 10:48] VITALS: BP 177/87; PULSE 86; RESP 18; O2SAT 95
[2023-07-26 10:58] LABS: Thyroid Stimulating Hormone 2.76 uIU/mL (0.465-4.68)
[2023-07-26 11:21] LABS: Hemoglobin A1C 5.7 % (4.0-6.0)
== END 2023-07-26 10:42 | disposition home or self-care (01) ==
PROVIDERS: PCP Nurse Practitioner Family; Visit Provider Nurse Anesthetist, Certified Registered
DX: M51.16 Intervertebral disc disorders with radiculopathy, lumbar region (principal); M47.26 Other spondylosis with radiculopathy, lumbar region; M96.1 Postlaminectomy syndrome, not elsewhere classified; R63.5 Abnormal weight gain; Z79.899 Other long term (current) drug therapy
CPT/HCPCS: 36415; 62323; 80061; 83036; 84443; J1010

== ENCOUNTER 2023-08-10 14:36 | Outpatient (POV) | payer MEDICARE, OTHER, SELFPAY ==
--- OUTSIDE RECORDS SUMMARY | 2023-08-10 14:38 | XMS_ITS | Patient Health Record ---
Author Name Unknown Organization [facility] Address [address] [place] [address] Care Team Providers Care Business [employer] Director Name Role Phone Charles Beckford Primary Care Provider Amber Bedolla Unavailable [phone] ALLERGIES No Known Allergies RESULTS Component Value Reference Range Notes X ray : Hip, Left Reviewed date:07/26/2023 04:47:48 PM Interpretation: Performing Lab: Notes/Report: Mammogram : Bilateral Reviewed date:01/19/2023 05:36:31 PM Interpretation: Performing Lab: Notes/Report: M-Thyroid Stimulating Hormon e Reviewed date:07/26/2023 11:15:57 AM Interpretation: Performing Lab: Notes/Report: TSH 2.76 0.465-4.68 uIU/mL M-Lipid Panel Reviewed date:07/26/2023 11:16:12 AM Interpretation: Performing Lab: Notes/Report: Patient Fasting? Y TRIG 162 30-150 mg/dl CHOL 186 140-200 mg/dl DLDL 82.34 100-129 mg/dL VLDL 32 0-40 mg/dL HDL 87 40-60 mg/dl CHLHDL 2.1 1-3.5 M-Hemoglobin A1C Reviewed date:07/27/2023 08:24:52 AM Interpretation: Performing Lab: Notes/Report: HGBA1C 5.7 4.0-6.0 % < 6% Non-Diabetic Level < 7% Controlled Diabetic Level > 8% Poorly Controlled Diabetic Level MRI : Hip, Left Reviewed date:08/02/2023 02:03:26 PM Interpretation: Performing Lab: Notes/Report: X ray : Chest Reviewed date:11/11/2022 05:41:26 PM Interpretation: Performing Lab: Notes/Report: MRI : Lumbar Spine w/o contr ast Reviewed date:07/02/2023 08:26:05 AM Interpretation: Performing Lab: Notes/Report: REASON FOR REFERRAL Reason Dr Alfaro for recurr ent UTI and nephrolithiasis Referral Organization [facility] Referring Provider First Name Amber Referring Provider Last Name Chioma Referring Provider [facility] Notes Amber Bedolla 11:04:43 AM > Not August 24 or September or ., Sabrina Bello 08/20/2022 11:38:30 AM > faxed feliz- [facility] Referral Priority Routine Referral Appointment Date 08/31/[address] Peter Diagnosis 1 Lumbar degenerative disc disease (M51.36) Diagnosis 2 Acute left-sided low back pain with left-sided sciatica (M54.42) Diagnosis 3 Lumbago with sciatic a, right side (M54.41) Referral Organization [facility] Referring Provider First Name Charles Referring Provider Last Name Analy Referring Provider [facility] General Notes Mei Isabel 2023 02:43:48 PM >Referral sent to Dr. Peter Referral Priority Routine Reason MRI left hip at [facility] Diagnosis 1 Left hip pain (M25.5 52) Referral Organization [facility] Referring Provider First Name Amber Referring Provider Last Name Chioma Referring Provider [facility] Notes Sabrina Bello 09:08:24 AM > faxed [...] with sciatica, right side (M54.41) Active confirmed 274088018 Problem BMI 31.0-31.9,adult (Z68.31) Active confirmed 586129612 Problem Other chronic pain (G89.29) Active confirmed 01082018 Problem Gastroesophageal reflux disease, esophagitis presence not specified (K21.9) Active confirmed 646490653 Problem Primary osteoarthritis of both knees (M17.0) Active confirmed 250099561 Problem Mood disorder (F39) Active confirmed 46 097035 Problem Iron deficiency anemia, unspecified iron deficiency anemia type (D50.9) Active confirmed 66804926 Problem Lumbar degenerative disc disease (M51.36) Active confirmed 03837241 Problem Arthralgia of multiple sites (M25.50) Active confirmed 35394050 Problem BMI 29.0-29.9,adult (Z68.29) Active confirmed 36862454 Problem 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) Active confirmed 626470790 Problem Renal cyst (N28.1) Active confirmed 722 132659 Problem Acute left-sided low back pain with left-sided sciatica (M54.42) Active confirmed 230390617 Problem Primary osteoarthritis of left hip (M16.12) Active confirmed 310682454594409 Problem Suprapatellar bursitis of left knee (M70.52) Active confirmed 3428847222591554 Problem Esophageal dysphagia (R13.10) Active confirmed 08885957 Problem Suprapatellar bursitis of right knee (M70.51) Active confirmed 7885877461479736 Problem Postoperative examination (Z09) Active confirmed 456964344 Problem Difficulty walking (R26.2) Active confirmed 237525389 VITAL SIGNS Heart Rate 68 /min 07/25/2023 Temperature 98 degrees Fahrenheit 07/25/2023 Blood pressure diastolic 84 mm Hg 07/25/2023 Height 63 in 07/25/2023 Blood pressure systolic 122 mm Hg 07/25/2023 Weight 181 lbs 07/25/2023 BMI 32.06 kg/m2 07/25/2023 Encounters Encounter Location Date Provider Diagnosis [facility] [address] [place] [address] 07/25/2023 Amber Bedolla Left hip pain M25.55 2 ; Lumbar degenerative disc disease M51.36 ; Decreased range of left hip movement M25.652 and Status post left hip replacement Z96.642 [facility] [address] [place] [address] 08/13/2022 Amber Chioma [facility] [address] [place] [address] 08/17/2022 Amber Chioma [facility] [address] [place] [address] 11/08/2022 Charles Besson Cough due to bronchospasm J98.01 [facility] [address] [place] [address] 11/16/2022 Amber Chioma [facility] [address] [place] [address] 12/10/2022 Amber Chioma [facility] [address] [place] [address] 01/12/2023 Amber Chioma Screening mammogram, encounter for Z12.31 [facility] [address] [place] [address] 01/22/2023 Amber Chioma [facility] [address] [place] [address] 02/09/2023 Amber Chioma [facility] [address] [place] [address] 04/13/2023 Amber Chioma [facility] [address] [place] [address] 04/27/2023 Amber Chioma [facility] [address] [place] [address] 06/23/2023 Amber Chioma Lumbago with sciatic a, right side M54.41 ; Other chronic pain G89.29 ; S/P lumbar fusion Z98.1 and Right leg weakness R29.898 [facility] [address] [place] [address] 06/30/2023 Amber Chioma Lumbar degenerative disc disease M51.36 and Acute left-sided low back pain with left-sided sciatica M54.42 [facility] [address] [facility] [address] [place], [place] [address] 07/11/2023 Amber Lozadaence [facility] [address] [facility] [address] [place] [address] 07/18/2023 Amber Lozadaence [facility] [address] [facility] [address] [place] [address] 07/19/2023 Amber Lozadaence [facility] [address] [place] [address] 07/25/2023 Amber Bedolla Left hip pain M25.55 2 ; Difficulty walking R26.2 and Status post left hip replacement Z96.642 [facility] [address] [facility] [address] [place], [place] [address] 07/26/2023 Amber Bedolla Weight gain R63.5 ASSESSMENTS Encounter Date Diagnosis Assessment Notes Treatment Notes Treatment Clinical Notes 11/08/2022 Cough due to bronchospasm (ICD-10 - J98.01) 01/12/2023 Screening mammogram, encounter for (ICD-10 - Z12.31) 06/30/2023 Lumbar degenerative disc disease (ICD-10 - M51.36) 06/30/2023 Acute left-sided low back pain with left-sided sciatica (ICD-10 - M54.42) 07/25/2023 Left hip pain (ICD-10 - M25.552) 07/25/2023 Left hip pain (ICD-10 - M25.552) Recommend MRI given her h/o replacement and trauma 5 months ago with increasing pain, decreased mobility 07/25/2023 Lumbar degenerative disc disease (ICD-10 - M51.36) keep appt with pain management for injections this week 07/26/2023 Weight gain (ICD-10 - R63.5) 06/23/2023 Lumbago with sciatica, right side (ICD-10 - M54.41) 06/23/2023 Other chronic pain (ICD-10 - G89.29) 06/23/2023 S/P lumbar fusion (ICD-10 - Z98.1) 07/25/2023 Difficulty walking (ICD-10 - R26.2) 07/25/2023 Decreased range of left hip movement (ICD-10 - M25.652) 07/25/2023 Status post left hip replacement (ICD-10 - Z96.642) 07/25/2023 Status post left hip replacement (ICD-10 - Z96.642) 06/23/2023 Right leg weakness (ICD-10 - R29.898) PLAN OF TREATMENT Pending Test Test Name Order Date X ray : Pelvis 06/10/2012 Bone Density 07/09/2006 Mammogram : Diagnostic 07/09/2006 occult blood 05/31/2013 Echocardiogram 05/31/2013 Physical Therapy 08/08/2019 Physical Therapy 03/10/2020 C-Peptide Level 05/07/2010 C-INSULIN 05/07/2010 C-CBC 09/13/2016 C-CMP 09/13/2016 C-LIPID PANEL 09/13/2016 C-LIPID PANEL 10/18/2011 C-TSH 10/18/2011 C-MELINDA 07/19/2011 C-MELINDA 05/30/2013 C-VITAMIN B12 10/18/2011 C-KIDNEY STONE ANALYSIS 01/27/2015 C-ASO TITER 07/19/2011 M-MATI-WWMXXD CITRULLINATED PEPTIDE 05/07 Ultrasound : Soft Tissue Abdomen 023 C-TIBC 05/07/2010 M-Erythrocyte Sedimentation Rate 019 M-Lipid Panel 10/17/2019 M-Lipid Panel 12/20/2018 M-Vitamin D 25 Hydroxy 12/20/2018 M-RA Latex Turbid. 12/20/2018 Physical Therapy : Aquatic Therapy 02/22 LIPID PANEL, STANDARD (7600) 07/26/2023 HEMOGLOBIN A1c (496) 07/26/2023 TSH W/REFLEX TO FT4 (26947) 07/26/2023 Future Test Test Name Order Date Mammogram : Left breast 02/10/2010 Next Appt Details Provider Name:Amber Coe ce, 08/17/2023 11:45:00 AM, [address] [place] [address], [phone], Insurance Providers Payer Name Payer Address Payer Phone Subscriber Number Group Number Insured Name Patient Relationship to Insured Coverage Start Date Coverage End Date [place] [address] [place] [address] [id number] Nory Ceja Self - patient is the insured [employer] [address] [place] [address] [phone] Nory Ceja Self - patient is [...]
[2023-08-10 14:59] VITALS: BP 158/85; PULSE 102; RESP 16; O2SAT 96; BMI 32.8
--- NOTE | 2023-08-10 15:30 | EXP.PAIN.SOA ---
[facility] Pain Management SOAP Note Subjective:: Patient is a pleasant 68-year-old female who presents today for follow-up of lumbar epidural steroid injection L5-S1 on 07/26/2023. Patient does state that she did have at least 1 full week of improvement and rated it at 85 to 90% relief. Patient rates her pain today a 5 out of 10. Patient does feel like she has had her pain change a little bit from her last visit. She does state that she has been going to physical therapy and they have done several things including dry needling and manipulation. Patient does state that she feels like overall her left leg is really giving her a lot of problems. She feels like she is tripping over herself frequently. She describes it as an aching, throbbing sensation with numbness and tingling into the left extremity. She does state the pain interferes with her ability perform activities of daily living such as cooking and cleaning. Patient does state that a lot of her worsening pain may be due to the manipulation and physical therapy. Patient did have recent imaging of her right hip. Patient does state that she is scheduled to go back to see her neurosurgeon coming up in October for possible evaluation for additional lumbar fusion of L3-L4. Patient was prescribed compounded cream and states that it is helping some. Her Harrison has been reviewed and is appropriate. Review of Systems: General: No recent weight changes, no fever, no sleep disturbances Respiratory: No cough, no shortness of air, no recurring pulmonary infections Cardiovascular/peripheral vascular: No chest pain, no palpitations, no edema, no shortness of breath Gastrointestinal: No new onset incontinence, normal bowel movements reported Genitourinary: No new onset incontinence Musculoskeletal: Low back pain, left leg pain Psychiatric: [Normal mood/affect] Neurological: [Denies weakness in extremities], [denies balance issues] Objective:: Physical Exam: General: Alert and oriented x3, no acute distress, pleasant and cooperative Lungs: Respirations even and unlabored, symmetrical chest expansion Eyes: PERRL Musculoskeletal: Flexion and extension of lumbar [spine] somewhat guarded secondary to pain, [antalgic gait noted] positive left leg raise with decreased sensation to light touch and decreased reflexes Neurological: Speech clear, no gross sensory deficit Assessment:: Degenerative disc disease of lumbar spine with lumbar radiculopathy symptoms, lumbar postlaminectomy syndrome, lumbar spinal stenosis, left leg pain Plan:: Patient is experiencing worsening pain throughout her low back with radiating symptoms down her entire left extremity. I have discussed with the patient that from her previous MRI imaging she did have severe left sided narrowing at the L3-L4 level. I have discussed with patient that she may benefit from a transforaminal epidural due to her positive left leg raise with decreased sensation light touch and decreased reflexes. Patient is experience a lot of weakness in the left leg. Patient was reviewed with the risk and benefits and she would like to proceed forward with this plan of care. I have recommended that she follow-up with neurosurgery to confirm that this injection will not interfere with future plans for that they do not have any objections to this. Patient is agreeable to this plan of care. Patient is not on any blood thinners. We will schedule the patient for a left transforaminal epidural steroid injection L3-L4 and L4-L5 under fluoroscopy. Patient has tried and failed conservative therapy including recent physical therapy with continued exercise and stretching between injections. Patient has been instructed to contact the clinic with any concerns before the next appointment. Dr. Peter has reviewed this note and agrees with this plan of care. This note was dictated using voice recognition software and make contain errors or omissions. [facility] Disclaimer: The information contained in this section may have been updated after the patient was seen, as this information can be updated by other users. Medical History Rheumatoid arthritis Motion sickness Kidney stones GERD (gastroesophageal reflux disease) Dental disease Arthritis Surgical History H/O repair of rotator cuff History of lumbar spinal fusion H/O total hip arthroplasty H/O total knee replacement Family History Other Arthritis Diabetes Hyperlipidemia Hypertension Social History Smoking Status: Never smoker alcohol intake: current alcohol intake frequency: holidays/special occasions only current occupational status: other Travel in the last 8 weeks: None caffeine: Yes
== END 2023-08-10 23:59 | disposition home or self-care (01) ==
LOC: SC.PAIN 14:37
PROVIDERS: PCP Nurse Practitioner Family; Visit Provider Nurse Practitioner Family
DX: M51.16 Intervertebral disc disorders with radiculopathy, lumbar region (principal); M96.1 Postlaminectomy syndrome, not elsewhere classified; M48.061 Spinal stenosis, lumbar region without neurogenic claudication; M79.605 Pain in left leg
CPT/HCPCS: 99212; G0463

== ENCOUNTER 2023-08-18 11:00 | Outpatient (RCR) | payer MEDICARE, OTHER, SELFPAY | END 2023-08-18 11:05 | disposition home or self-care (01) | LOC: PT 11:00 | PROVIDERS: Visit Provider Physician Assistant Medical | DX: M54.50 Low back pain, unspecified (principal) | CPT/HCPCS: 20561; 97010; 97014; 97035; 97110; 97140; 97163; 97164; 97535; G0283 ==

== ENCOUNTER 2023-08-30 10:19 | Day surgery (SDC) | payer MEDICARE, OTHER, SELFPAY ==
--- OUTSIDE RECORDS SUMMARY | 2023-08-30 10:22 | XMS_ITS | Patient Health Record ---
Author Name Unknown Organization [facility] Address [address] [place] [address] Care Team Providers Care Returner Name Role Phone Charles Beckford Primary Care Provider [phone] Amber Bedolla Unavailable [phone] ALLERGIES No Known Allergies RESULTS Component Value Reference Range Notes Mammogram : Bilateral Reviewed date:01/19/2023 05:36:31 PM Interpretation: Performing Lab: Notes/Report: M-Hemoglobin A1C Reviewed date:07/27/2023 08:24:52 AM Interpretation: Performing Lab: Notes/Report: HGBA1C 5.7 4.0-6.0 % < 6% Non-Diabetic Level < 7% Controlled Diabetic Level > 8% Poorly Controlled Diabetic Level M-Lipid Panel Reviewed date:07/26/2023 11:16:12 AM Interpretation: Performing Lab: Notes/Report: Patient Fasting? Y TRIG 162 30-150 mg/dl CHOL 186 140-200 mg/dl DLDL 82.34 100-129 mg/dL VLDL 32 0-40 mg/dL HDL 87 40-60 mg/dl CHLHDL 2.1 1-3.5 M-Thyroid Stimulating Hormon e Reviewed date:07/26/2023 11:15:57 AM Interpretation: Performing Lab: Notes/Report: TSH 2.76 0.465-4.68 uIU/mL X ray : Chest Reviewed date:11/11/2022 05:41:26 PM Interpretation: Performing Lab: Notes/Report: X ray : Hip, Left Reviewed date:07/26/2023 04:47:48 PM Interpretation: Performing Lab: Notes/Report: MRI : Hip, Left Reviewed date:08/02/2023 02:03:26 PM Interpretation: Performing Lab: Notes/Report: MRI : Lumbar Spine w/o contr ast Reviewed date:07/02/2023 08:26:05 AM Interpretation: Performing Lab: Notes/Report: REASON FOR REFERRAL Reason Dr. Peter Diagnosis 1 Lumbar degenerative disc disease (M51.36) Diagnosis 2 Acute left-sided low back pain with left-sided sciatica (M54.42) Diagnosis 3 Lumbago with sciatic a, right side (M54.41) Referral Organization [facility] Referring Provider First Name Charles Referring Provider Last Name Analy Referring Provider [facility] Internal M edicine General Notes Mei Isabel 2023 02:43:48 PM >Referral sent to Dr. Peter Referral Priority Routine Reason MRI left hip at [facility] Diagnostic Diagnosis 1 Left hip pain (M25.5 52) Referral Organization [facility] Referring Provider First Name Amber Referring Provider Last Name Chioma Referring Provider [facility] General Notes Sabrina Bello 09:08:24 AM > faxed and they will call her to schedule Referral Priority Routine Reason Please send screenin g kit Diagnosis 1 Colon cancer screeni ng (Z12.11) Referral Organization [facility] Referring Provider First Name Amber Referring Provider Last Name Chioma Referring Provider [facility] Referred Provider Diana mars General Notes Amber Bedolla 03:23:21 PM > faxed order Referral Priority Routine MEDICATIONS Medication SIG (Take, Route, Frequency, Duration) Notes Start Date End Date Status nitrofurantoin macrocrystals 50 mg 1 cap(s) orally once a day at bedtime Active LaMICtal 150MG 1 tab(s) orally 2 ti mes a day for 90 days Active Ozempic 2 mg/3 mL (0.25 mg or 0.5 mg dose) as directed subcutaneously once a week Active Gemtesa 75 mg 1 tab(s) orally once a day for 90 days 08/17/2023 Active gabapentin 300 mg 1 cap(s) orally 1 ta b in morning and 2 tabs at bedtime Active Diclofenac Sodium Topical 1% 2 grams savanna lied topically 4 times a day for 90 days 12/10/2022 Active Mobic 15 mg 1 tab(s) orally once a day for 90 days Active hydroxychloroquine 200 mg 1 tab(s) orall y 2 times a day for 90 days 04/08/2022 Active omeprazole 20 mg 1 cap(s) orally once a day for 90 days Active Estradiol Vaginal 0.1 mg/g as directed intravaginally 2 times per week for 30 days 07/27/2022 Active ZyrTEC 10 mg 1 tab(s) orally once a day prn Active Vitamin B12 2500 mcg 1 tab(s) sublingual ly once a day for 30 day(s) Active IMMUNIZATIONS Vaccine Route Administration Date Status Comme nts Prevnar PCV-20 (Pneumococcal conjugate 20) IM Intramuscular 12/09/2021 Administered Influenza-Fluzone 3+years (NON-MEDICARE) IM Intramuscular 12/24/2014 Administered Influenza-Fluzone 3+years (NON-MEDICARE) IM Intramuscular 12/29/2017 Administered Hep A Adult 2 Dose IM Intramuscular 02/27/2018 Administere d Hep A Adult 2 Dose IM Intramuscular 12/20/2018 Administere d H1N1 Vaccine IM Intramuscular 12/30/2008 Administered Fluzone High Dose IM Intramuscular 01/06/2021 Administered Fluzone High Dose IM Intramuscular 12/09/2021 Administered FLUZONE 6MO - OLDER IM Intramuscular 12/20/2018 Administer ed Flublok IM Intramuscular 11/29/2019 Administered Boostrix IM Intramuscular 08/17/2023 Administered Arexvy Unknown 08/17/2023 Administered Adacel (Tdap) IM Intramuscular 03/14/2008 Administered Fluvirin--Influenza vaccine 3+ year Unknown 12/26/2006 Administered Fluvirin--Influenza vaccine 3+ year IM Intramuscular 01/09/2008 Administered Fluvirin--Influenza vaccine 3+ year IM Intramuscular 11/29/2008 Administered Fluvirin--Influenza vaccine 3+ year IM Intramuscular 12/11/2009 Administered Fluvirin--Influenza vaccine 3+ year IM Intramuscular 12/18/2010 Administered Fluvirin--Influenza vaccine 3+ year IM Intramuscular 12/07/2011 Administered Fluvirin--Influenza vaccine 3+ year IM Intramuscular 12/10/2013 Administered SOCIAL HISTORY Sex Assigned At : Social History Observation Description Sex Assigned At Unknown PROBLEMS Problem Type ICD Code Onset Dates Problem Status W/U Status Risk SNOMED Code Notes Problem Lumbago with sciatica, right side (M54.41) Active confirmed 047073239 Problem BMI 31.0-31.9,adult (Z68.31) Active confirmed 473420789 Problem BMI 33.0-33.9,adult (Z68.33) Active confirmed 088540993 Problem Other chronic pain (G89.29) Active confirmed 79050517 Problem Gastroesophageal reflux disease, esophagitis presence not specified (K21.9) Active confirmed 271441605 Problem Primary osteoarthritis of both knees (M17.0) Active confirmed 814350411 Problem Frequent falls (R29.6) Active confirmed 822928828 Problem Mood disorder (F39) Active confirmed 46 688454 Problem Rheumatoid arthritis involving multiple sites with positive rheumatoid factor (M05.79) Active confirmed 790117175 Problem OAB (overactive bladder) (N32.81) Active confirmed 721626612 Problem Iron deficiency anemia, unspecified iron deficiency anemia type (D50.9) Active confirmed 91454435 Problem Lumbar degenerative disc disease (M51.36) Active confirmed 63899251 Problem Arthralgia of multiple sites (M25.50) Active confirmed 31196066 Problem BMI 29.0-29.9,adult (Z68.29) Active confirmed 93257250 Problem 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) Active confirmed 403263237 Problem Renal cyst (N28.1) Active confirmed 722 698925 Problem Acute left-sided low back pain with left-sided sciatica (M54.42) Active confirmed 666969176 Problem Primary osteoarthritis of left hip (M16.12) Active confirmed 937509406661742 Problem Suprapatellar bursitis of left knee (M70.52) Active confirmed 0170043801925063 Problem Esophageal dysphagia (R13.10) Active confirmed 31108188 Problem Suprapatellar bursitis of right knee (M70.51) Active confirmed 9763585908049682 Problem Postoperative examination (Z09) Active confirmed 684438295 Problem Difficulty walking (R26.2) Active confirmed 640967798 VITAL SIGNS Heart Rate 74 /min 08/17/2023 Temperature 97.8 degrees Fahrenheit 08/17/2023 Blood pressure diastolic 74 mm Hg 08/17/2023 Height 63 in 08/17/2023 Blood pressure systolic 118 mm Hg 08/17/2023 Weight 191 lbs 08/17/2023 BMI 33.83 kg/m2 08/17/2023 Encounters Encounter Location Date Provider Diagnosis [facility] [address] [facility] [address] [place] [address] 07/25/2023 Amber Chioma Left hip pain M25.55 2 ; Lumbar degenerative disc disease M51.36 ; Decreased range of left hip movement M25.652 and Status post left hip replacement Z96.642 [facility] [address] [address] 08/17/2023 Amber Chioma Arthralgia of multip le sites M25.50 ; Medicare annual wellness visit, initial Z00.00 ; Lumbar degenerative disc disease M51.36 ; Renal cyst N28.1 ; Mood disorder F39 ; BMI 33.0-33.9,adult Z68.33 ; Rheumatoid arthritis involving multiple sites with positive rheumatoid factor M05.79 ; Colon cancer screening Z12.11 ; OAB (overactive bladder) N32.81 ; Recurrent UTI N39.0 ; Frequent falls R29.6 and Need for vaccination Z23 [facility] [address] [facility] [address] [place], [place] [address] 11/08/2022 Charles Besson Cough due to bronchospasm J98.01 [facility] [address] [facility] [address] [place], [place] [address] 11/16/2022 Amber Chioma [facility] [address] [facility] [address] [place], [place] [address] 12/10/2022 Amber Chioma [facility] [address] [address] 01/12/2023 Amber Chioma Screening mammogram, encounter for Z12.31 [facility] [address] [facility] [address] [place], [place] [address] 01/22/2023 Amber Chioma [facility] [address] [facility] [address] [place], [place] [address] 02/09/2023 Amber Chioma [facility] [address] [facility] [address] [place], [place] [address] 04/13/2023 Amber Chioma [facility] [address] [facility] [address] [place] [address] 04/27/2023 Amber Chioma [facility] [address] [facility] [address] [place] [address] 06/23/2023 Amber Bedolla Lumbago with sciatic a, right side M54.41 ; Other chronic pain G89.29 ; S/P lumbar fusion Z98.1 and Right leg weakness R29.898 [facility] [address] [facility] [address] [place] [address] 06/30/2023 Amber Bedolla Lumbar degenerative disc disease M51.36 and Acute left-sided low back pain with left-sided sciatica M54.42 [facility] [address] [facility] [address] [place] [address] 07/11/2023 Amber Lozadaence [facility] [address] [facility] [address] [place] [address] 07/18/2023 Amber Lozadaence [facility] [address] [facility] [address] [place] [address] 07/19/2023 Amber Lozadaence [facility] [address] [facility] [address] [place] [address] 07/25/2023 Amber Bedolla Left hip pain M25.55 2 ; Difficulty walking R26.2 and Status post left hip replacement Z96.642 [facility] [address] [facility] [address] [place], [place] [address] 07/26/2023 Amber Bedolla Weight gain R63.5 ASSESSMENTS Encounter Date Diagnosis Assessment Notes Treatment Notes Treatment Clinical Notes 11/08/2022 Cough due to bronchospasm (ICD-10 - J98.01) 01/12/2023 Screening mammogram, encounter for (ICD-10 - Z12.31) 07/25/2023 Left hip pain (ICD-10 - M25.552) Recommend MRI given her h/o replacement and trauma 5 months ago with increasing pain, decreased mobility 07/25/2023 Lumbar degenerative disc disease (ICD-10 - M51.36) keep appt with pain management for injections this week 07/26/2023 Weight gain (ICD-10 - R63.5) 08/17/2023 Medicare annual wellness visit, initial (ICD-10 - Z00.00) Mamm and DEXA this fall, Cologuard. Vaccinations as noted. 08/17/2023 Arthralgia of multiple sites (ICD-10 - M25.50) multiple specialists following 07/25/2023 Left hip pain (ICD-10 - M25.552) 06/30/2023 Lumbar degenerative disc disease (ICD-10 - M51.36) 06/30/2023 Acute left-sided low back pain with left-sided sciatica (ICD-10 - M54.42) 06/23/2023 Lumbago with sciatica, right side (ICD-10 - M54.41) 06/23/2023 Other chronic pain (ICD-10 - G89.29) 06/23/2023 S/P lumbar fusion (ICD-10 - Z98.1) 07/25/2023 Difficulty walking (ICD-10 - R26.2) 08/17/2023 Lumbar degenerative disc disease (ICD-10 - M51.36) 07/25/2023 Decreased range of left hip movement (ICD-10 - M25.652) 07/25/2023 Status post left hip replacement (ICD-10 - Z96.642) 08/17/2023 Renal cyst (ICD-10 - N28.1) stable on imaging, urology did not recommend routine FU 07/25/2023 Status post left hip replacement (ICD-10 - Z96.642) 06/23/2023 Right leg weakness (ICD-10 - R29.898) 08/17/2023 Mood disorder (ICD-10 - F39) stable on lamictal 08/17/2023 BMI 33.0-33.9,adult (ICD-10 - Z68.33) on Ozempic and tolerating 08/17/2023 Rheumatoid arthritis involving multiple sites with positive rheumatoid factor (ICD-10 - M05.79) rheumatology following 08/17/2023 Colon cancer screening (ICD-10 - Z12.11) 08/17/2023 OAB (overactive bladder) (ICD-10 - N32.81) trial of Gemtesa 08/17/2023 Recurrent UTI (ICD-10 - N39.0) continue macrodantin for now 08/17/2023 Frequent falls (ICD-10 - R29.6) secondary to lower extremity weakness...working with PT and specialty services 08/17/2023 Need for vaccination (ICD-10 - Z23) PLAN OF TREATMENT Pending Test Test Name Order Date X ray : Pelvis 06/10/2012 Bone Density 07/09/2006 Mammogram : Diagnostic 07/09/2006 occult blood 05/31/2013 Echocardiogram 05/31/2013 Physical Therapy 08/08/2019 Physical Therapy 03/10/2020 C-Peptide Level 05/07/2010 C-INSULIN 05/07/2010 C-CBC 09/13/2016 C-CMP 09/13/2016 C-LIPID PANEL 09/13/2016 C-LIPID PANEL 10/18/2011 C-TSH 10/18/2011 C-MELINDA 07/19/2011 C-MELINDA 05/30/2013 C-VITAMIN B12 10/18/2011 C-KIDNEY STONE ANALYSIS 01/27/2015 C-ASO TITER 07/19/2011 N-MRWA-LXZEST CITRULLINATED PEPTIDE 05/07 Ultrasound : Soft Tissue Abdomen 023 C-TIBC 05/07/2010 M-Erythrocyte Sedimentation Rate 019 M-Lipid Panel 12/20/2018 M-Lipid Panel 10/17/2019 M-Vitamin D 25 Hydroxy 12/20/2018 M-RA Latex Turbid. 12/20/2018 Physical Therapy : Aquatic Therapy 02/22 LIPID PANEL, STANDARD (7600) 07/26/2023 HEMOGLOBIN A1c (496) 07/26/2023 TSH W/REFLEX TO FT4 (67962) 07/26/2023 Future Test Test Name Order Date Mammogram : Left breast 02/10/2010 Insurance Providers Payer Name Payer Address Payer Phone Subscriber Number Group Number Insured Name Patient Relationship to Insured Coverage Start Date Coverage End Date [place] [address] [place] [address] [id number] Nory Ceja Self - patient is the insured [employer] [address] [place] [address] [phone] Nory Ceja Self - patient is the insured [employer] [address] [place] [address] [address] [place] [address] ACL MarcialGabriella ricoNory Self - patient is the insured MEDICATIONS ADMINISTERED Medication Instructions Date of Administration Dosage Notes Diana 11/28/2015 1 mL MEDICAL (GENERAL) HISTORY Medical [...] hip replacement 2019 Lumbar fusion L4-L5 12/2021 Rt shoulder 02/2023 Hospitalization History Reason Date(Month/Year) [facility] - Left hip replacement [facility]right total knee 02/2019 [facility]- Left total knee 01/2019 UTI 01/1980 x 3
[2023-08-30 10:45] VITALS: BP 129/78; PULSE 82; RESP 18; TEMP 36.7; O2SAT 97; BMI 31.8
[2023-08-30] MEDS: LIDOCAINE 1% 5ML PF VIAL 5 ML (10:59)
--- NOTE | 2023-08-30 11:07 | EXP.PAIN.PRO ---
Procedure Date: 08/30/23 Time: 10:45 Anesthesiologist:: Wes Daigle CRNA Complications:: None Pre-procedure Diagnosis:: Degenerative disc lumbar spine multilevels. Lumbar radiculopathy. Lumbar postlaminectomy syndrome. Lumbar post fusion syndrome. Post-procedure Diagnosis:: Same. Indications for Procedure:: Patient is a pleasant 68-year-old female comes our clinic today for left L3-4, L4-5 transforaminal epidural steroid injection. Patient reports low lumbar back pain as well as left anterior leg pain that is constant, dull, aching. Patient is status post L4-5 L5-S1 fusion in 2021. She rates her pain today 6/10. Procedure Details:: Details of the procedure explained to the patient. The patient was taken to procedure room placed in the prone position. The area over the lumbar spine was cleansed using chlorhexidine as a cleansing solution. Using fluoroscopy guidance markers were placed over the left border of the L3-4, L4-5 vertebral body. At each marker the skin and subcutaneous tissue was anesthetized using 1% lidocaine and a 25-gauge needle. At this time using fluoroscopy guidance 3 and half inch 22-gauge spinal needle was used to access the upper one third of the left L3-4, L4-5 foramen. Using fluoroscopy guidance in the lateral position needle position was confirmed using 0.5 mL of contrast dye. Good spread was noted in the epidural space at each level. After negative aspiration 2 mL of 1% lidocaine and 40 mg of Depo-Medrol was injected at each level. Patient tolerated procedure without difficulty. There are no complications. Plan and Disposition:: Patient was discharged without incident.
[2023-08-30 11:12] VITALS: BP 130/61; PULSE 80; RESP 18; O2SAT 100
== END 2023-08-30 11:13 | disposition home or self-care (01) ==
PROVIDERS: PCP Internal Medicine Adolescent Medicine; Visit Provider Nurse Anesthetist, Certified Registered
DX: M54.16 Radiculopathy, lumbar region (principal); M96.1 Postlaminectomy syndrome, not elsewhere classified; M51.36 Other intervertebral disc degeneration, lumbar region
CPT/HCPCS: 64483; 64484; J1010

== ENCOUNTER 2023-09-22 13:55 | Outpatient (POV) | payer MEDICARE, OTHER, SELFPAY ==
--- OUTSIDE RECORDS SUMMARY | 2023-09-22 13:58 | XMS_ITS ---
Author Name Unknown Organization [facility] Address [address] [place] [address] Care Team Providers Care Community Health Coordinator Name Role Phone Charles Beckford Primary Care Provider Amber Bedolla Scott [phone] REASON FOR VISIT Labs Encounters Encounter Location Date Provider Diagnosis [facility] [address] [place] [address] 07/26/2023 Amber Bedolla Weight gain R63.5 ASSESSMENTS Encounter Date Diagnosis Assessment Notes Treatment Notes Treatment Clinical Notes 07/26/2023 Weight gain (ICD-10 - R63.5) PLAN OF TREATMENT Pending Test Test Name Order Date LIPID PANEL, STANDARD (7600) 07/26/2023 HEMOGLOBIN A1c (496) 07/26/2023 TSH W/REFLEX TO FT4 (10565) 07/26/2023 Progress Notes * Nory CEJA GDOB:[birth year] (68 yo F)Acc No.[id number]:07/26/2023 Patient:??Nory CEJA :1955?Age:68 Y?Sex:Fe male Address:[place] [address] Subjective: * Chief Complaints: * ?Labs * Medical History:?? * Surgical History:?? * Hospitalization/Major Diagno stic Procedure:?? * Medications:?? Objective: Assessment: * Assessment: 1.??Weight gain - R63.5 (Tracee dukes)?? Plan: * Treatment: * Procedure Codes:?? * true * Date:??
--- OUTSIDE RECORDS SUMMARY | 2023-09-22 13:58 | XMS_ITS | Patient Health Record ---
Author Name Unknown Organization [facility] [place] Address [address] [place] [address] Care Team Providers Care Departmental Buyer Name Role Phone Charles Beckford Primary Care Provider Amber Bedolla Unavailable [phone] ALLERGIES No Known Allergies RESULTS Component Value Reference Range Notes MRI : Hip, Left Reviewed date:08/02/2023 02:03:26 PM Interpretation: Performing Lab: Notes/Report: X ray : Hip, Left Reviewed date:07/26/2023 04:47:48 PM Interpretation: Performing Lab: Notes/Report: MRI : Lumbar Spine w/o contr ast Reviewed date:07/02/2023 08:26:05 AM Interpretation: Performing Lab: Notes/Report: M-Hemoglobin A1C Reviewed [...] date:01/19/2023 05:36:31 PM Interpretation: Performing Lab: Notes/Report: REASON FOR REFERRAL Reason Dr. Peter Diagnosis 1 Lumbar degenerative disc disease (M51.36) Diagnosis 2 Acute left-sided low back pain with left-sided sciatica (M54.42) Diagnosis 3 Lumbago with sciatic a, right side (M54.41) Referral Organization [facility] Referring Provider First Name Charles Referring Provider Last Name Analy Referring Provider [facility] General Notes Mei Isabel 2023 02:43:48 PM >Referral sent to Dr. Peter Referral Priority Routine Reason MRI left hip at [facility] Diagnosis 1 Left hip pain (M25.5 52) Referral Organization [facility] Referring Provider First Name Amber Referring Provider Last Name Chioma Referring Provider [facility] General Notes Sabrina Bello 09:08:24 AM > faxed and they will call her to schedule Referral Priority Routine Reason Please send screenin g kit Diagnosis 1 Colon cancer screeni ng (Z12.11) Referral Organization [facility] Referring Provider First Name Amber Referring Provider Last Name Chioma Referring Provider [facility] Referred Provider Diana mars General Notes Amber [...] nts Adacel (Tdap) IM Intramuscular 03/14/2008 Administered Arexvy Unknown 08/17/2023 Administered Boostrix IM Intramuscular 08/17/2023 Administered Flublok IM Intramuscular 11/29/2019 Administered Fluvirin--Influenza [...] with sciatica, right side (M54.41) Active confirmed 737579161 Problem BMI 31.0-31.9,adult (Z68.31) Active confirmed 538333618 Problem BMI 33.0-33.9,adult (Z68.33) Active confirmed 923482227 Problem Other chronic pain (G89.29) Active confirmed 45761986 Problem Gastroesophageal reflux disease, esophagitis presence not specified (K21.9) Active confirmed 897688542 Problem Primary osteoarthritis of both knees (M17.0) Active confirmed 517206204 Problem Frequent falls (R29.6) Active confirmed 714462589 Problem Mood disorder (F39) Active confirmed 46 795412 Problem Rheumatoid arthritis involving multiple sites with positive rheumatoid factor (M05.79) Active confirmed 799198550 Problem OAB (overactive bladder) (N32.81) Active confirmed 671968378 Problem Iron deficiency anemia, unspecified iron deficiency anemia type (D50.9) Active confirmed 78134149 Problem Lumbar degenerative disc disease (M51.36) Active confirmed 56926091 Problem Arthralgia of multiple sites (M25.50) Active confirmed 47666178 Problem BMI 29.0-29.9,adult (Z68.29) Active confirmed 67994397 Problem 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) Active confirmed 799998298 Problem Renal cyst (N28.1) Active confirmed 722 253473 Problem Acute left-sided low back pain with left-sided sciatica (M54.42) Active confirmed 489501989 Problem Primary osteoarthritis of left hip (M16.12) Active confirmed 620973538552047 Problem Suprapatellar bursitis of left knee (M70.52) Active confirmed 7384528306010195 Problem Esophageal dysphagia (R13.10) Active confirmed 04101542 Problem Suprapatellar bursitis of right knee (M70.51) Active confirmed 0643915661994195 Problem Postoperative examination (Z09) Active confirmed 692033320 Problem Difficulty walking (R26.2) Active confirmed 069374510 VITAL SIGNS Heart Rate 74 /min 08/17/2023 Temperature 97.8 degrees Fahrenheit 08/17/2023 Blood pressure diastolic 74 mm Hg 08/17/2023 Height 63 in 08/17/2023 Blood pressure systolic 118 mm Hg 08/17/2023 Weight 191 lbs 08/17/2023 BMI 33.83 kg/m2 08/17/2023 Encounters Encounter Location Date Provider Diagnosis [facility] [address] [facility] [address] [place] [address] 07/25/2023 Amber Chioma Left hip pain M25.55 2 ; Lumbar degenerative disc disease M51.36 ; Decreased range of left hip movement M25.652 and Status post left hip replacement Z96.642 [facility] [address] [address] 08/17/2023 Amber Chioma Arthralgia of multip le [...] falls R29.6 and Need for vaccination Z23 [facility] [address] [facility] [address] [place], [place] [address] 11/08/2022 Charles Besson Cough due to bronchospasm J98.01 [facility] [address] [facility] [address] [place], [place] [address] 11/16/2022 Amber Chioma [facility] [address] [facility] [address] [place], [place] [address] 12/10/2022 Amber Chioma [facility] [address] [address] 01/12/2023 Amber Chioma Screening mammogram, encounter for Z12.31 [facility] [address] [facility] [address] [place], [place] [address] 01/22/2023 Amber Chioma [facility] [address] [facility] [address] [place], [place] [address] 02/09/2023 Amber Chioma [facility] [address] [facility] [address] [place], [place] [address] 04/13/2023 Amber Chioma [facility] [address] [facility] [address] [place] [address] 04/27/2023 Amber Chioma [facility] [address] [facility] [address] [place] [address] 06/23/2023 Amber Bedolla Lumbago with sciatic a, right side M54.41 ; Other chronic pain G89.29 ; S/P lumbar fusion Z98.1 and Right leg weakness R29.898 [facility] [address] [facility] [address] [place] [address] 06/30/2023 Amber Bedolla Lumbar degenerative disc disease M51.36 and Acute left-sided low back pain with left-sided sciatica M54.42 [facility] [address] [facility] [address] [place] [address] 07/11/2023 Amber Chioma [facility] [address] [facility] [address] [place] [address] 07/18/2023 Amber Lozadaence [facility] [place] [address] [facility] [address] [place] [address] 07/19/2023 Amber Lozadaence [facility] [address] [facility] [address] [place] [address] 07/25/2023 Amber Bedolla Left hip pain M25.55 2 ; Difficulty walking R26.2 and Status post left hip replacement Z96.642 [facility] [address] [facility] [address] [place] [address] 07/26/2023 Amber Bedolla Weight gain R63.5 ASSESSMENTS Encounter Date Diagnosis Assessment Notes Treatment Notes Treatment Clinical Notes 01/12/2023 Screening mammogram, encounter for (ICD-10 - Z12.31) 06/23/2023 Lumbago with sciatica, right side (ICD-10 - M54.41) 06/23/2023 Other chronic pain (ICD-10 - G89.29) 07/25/2023 Left hip pain (ICD-10 - M25.552) [...] sites (ICD-10 - M25.50) multiple specialists following 06/30/2023 Lumbar degenerative disc disease (ICD-10 - M51.36) 06/30/2023 Acute left-sided low back pain with left-sided sciatica (ICD-10 - M54.42) 11/08/2022 Cough due to bronchospasm (ICD-10 - J98.01) 08/17/2023 Lumbar degenerative disc disease (ICD-10 - [...] imaging, urology did not recommend routine FU 08/17/2023 Mood disorder (ICD-10 - F39) stable [...] C-KIDNEY STONE ANALYSIS 01/27/2015 C-ASO TITER 07/19/2011 [id number] CITRULLINATED PEPTIDE 05/07 Ultrasound : Soft Tissue Abdomen 023 C-TIBC 05/07/2010 M-Erythrocyte Sedimentation Rate 019 M-Lipid Panel 12/20/2018 M-Lipid Panel 10/17/2019 M-Vitamin D 25 Hydroxy 12/20/2018 M-RA Latex Turbid. 12/20/2018 Physical Therapy : Aquatic Therapy 02/22 LIPID PANEL, STANDARD (7600) 07/26/2023 HEMOGLOBIN A1c (496) 07/26/2023 TSH W/REFLEX TO FT4 (66773) 07/26/2023 Future Test Test Name Order Date Mammogram : Left breast 02/10/2010 Insurance Providers Payer Name Payer Address Payer Phone Subscriber Number Group Number Insured Name Patient Relationship to Insured Coverage Start Date Coverage End [place] [address] [place] [address] [phone] [id number] Nory Ceja Self - patient is the insured [employer] [address] [place] [id number] [phone] Nory Ceja Self - patient is the insured [employer] [address] [place] [address] [address] [place] [address] ACL MarcialGabriella ricoNory Self - patient is [...]
--- OUTSIDE RECORDS SUMMARY | 2023-09-22 13:58 | XMS_ITS ---
Author Name Unknown Organization [facility] Address [address] [place] [address] Care Team Providers Care Technology Manager Name Role Phone [email or web address] Primary Care Provider Amber Bedolla Unavailable [phone] ALLERGIES No Known Allergies RESULTS Component Value Reference Range Notes MRI : Hip, Left Reviewed date:08/02/2023 02:03:26 PM Interpretation: Performing Lab: Notes/Report: REASON FOR REFERRAL Reason MRI left hip at [facility] Diagnosis 1 Left hip pain (M25.5 52) Referral Organization [facility] Referring Provider First Name Amber Referring Provider Last Name Chioma Referring Provider [facility] General Notes Sabrina Bello 09:08:24 AM > faxed and they will call her to schedule Referral Priority Routine REASON FOR VISIT LEFT hip pain MEDICATIONS Medication SIG (Take, Route, Frequency, Duration) Notes Start Date End Date Status baclofen 10 mg 1 tab(s) orally 3 times a day as needed for muscle spasm for 90 days 07/11/2023 Active Mobic 15 mg 1 tab(s) orally once a day for 90 days Active LaMICtal 150MG 1 tab(s) orally 2 times a day for 90 days Active Diclofenac Sodium Topical 1% 2 grams applied topically 4 times a day for 90 days 12/10/2022 Active hydroxychloroquine 200 mg 1 tab(s) orally 2 times a day for 90 days 04/08/2022 Active omeprazole 20 mg 1 cap(s) orally once a day for 90 days Active Estradiol Vaginal 0.1 mg/g as directed intravaginally 2 times per week for 30 days 07/27/2022 Active Vitamin B12 2500 mcg 1 tab(s) sublingual ly once a day for 30 day(s) Active Valtrex 1 g 1 tab(s) orally once a day for 90 days prn 11/12/2020 Active EPINEPHrine 0.3 mg 0.3 mg intramuscularly once for 1 dose(s) ok for generic 06/04/2016 Active ZyrTEC 10 mg 1 tab(s) orally once a day prn Active VITAL SIGNS Temperature 98 degrees Fahrenheit 07/25/2023 Blood pressure systolic 122 mm Hg 07/25/19 24 Blood pressure diastolic 84 mm Hg 024 Heart Rate 68 /min 07/25/2023 Height 63 in 07/25/2023 Weight 181 lbs 07/25/2023 BMI 32.06 kg/m2 07/25/2023 Encounters Encounter Location Date Provider Diagnosis [facility] [address] [facility] [address] [place] [address] 07/25/2023 Amber Bedolla Left hip pain M25.55 2 ; Lumbar degenerative disc disease M51.36 ; Decreased range of left hip movement M25.652 and Status post left hip replacement Z96.642 ASSESSMENTS Encounter Date Diagnosis Assessment Notes Treatment Notes Treatment Clinical Notes 07/25/2023 Left hip pain (ICD-10 - M25.552) Recommend MRI given her h/o replacement and trauma 5 months ago with increasing pain, decreased mobility 07/25/2023 Lumbar degenerative disc disease (ICD-10 - M51.36) keep appt with pain management for injections this week 07/25/2023 Decreased range of left hip movement (ICD-10 - M25.652) 07/25/2023 Status post left hip replacement (ICD-10 - Z96.642) PLAN OF TREATMENT Treatment Notes Assessment Notes Left hip pain Recommend MRI given her h/o replacement and trauma 5 months ago with increasing pain, decreased mobility Lumbar degenerative disc disease keep ap pt with pain management for injections this week Referrals Referral Date Details MRI left hip at [facility] Next Appt Details Follow Up: prn, Reason: Progress Notes * Nory CEJA GDOB:[birth year] (68 yo F)Acc No.[id number]:07/25/2023 Progress Notes Patient:??Nory CEJA Provider:??ELIAZAR Pollock :1955?Age:68 Y?Sex:Fe male Date:07/25/2023 Address:[place], [id number] Pcp:Charles Beckford Subjective: * Chief Complaints: * ?1. LEFT hip pain. * HPI: ?gen:? Presents today with complaints of pain in the left hip. Constant discomfort but intermittent episodes of more severe pain which render her nearly nonambulatory. In the anterior aspect and radiating down the anterior left thigh. She has a history of left hip replacement as well as lumbar fusion. Has had recent MRI and CT of the LS spine and is undergoing injections tomorrow. She suffered a fall in March of this year and feels like pain has been present and increasing since that time. Landed on her left side. Imaging done today of her left hip reveals no acute changes, no obvious issues with her prosthesis. No changes in bowel or bladder function. She is currently participating with physical therapy focusing on interventions for her back. * ROS:?CONSTITUTIONAL:?no??Fever.? * Medical History:??Hormone re placement therapy, Bilat knee osteoarthritis, GERD with stricture of esophagus, Mood disorder, LS DDD, Renal cysts, Rheumatoid arthritis. * Medications:??Taking Vitamin B12 2500 mcg tablet 1 tab(s) sublingually once a day , Taking ZyrTEC 10 mg tablet 1 tab(s) orally once a day prn , Taking EPINEPHrine 0.3 mg kit 0.3 mg intramuscularly once , Notes to Pharmacist: ok for generic, Taking Valtrex 1 g tablet 1 tab(s) orally once a day , Notes to Pharmacist: prn, Taking hydroxychloroquine 200 mg tablet 1 tab(s) orally 2 times a day , Taking Estradiol Vaginal 0.1 mg/g cream as directed intravaginally 2 times per week , Taking omeprazole 20 mg delayed release capsule 1 cap(s) orally once a day , Taking baclofen 10 mg tablet 1 tab(s) orally 3 times a day as needed for muscle spasm , Taking LaMICtal 150MG tablet 1 tab(s) orally 2 times a day , Taking Mobic 15 mg tablet 1 tab(s) orally once a day , Taking Diclofenac Sodium Topical 1% gel 2 grams applied topically 4 times a day , Discontinued DULoxetine 20 mg delayed release capsule 1 cap(s) orally 2 times a day , Discontinued amoxicillin 500 mg capsule 1 cap(s) orally 3 times a day , Discontinued fluconazole 150 mg tablet 1 tab(s) orally once and repeat if needed , Medication List reviewed and reconciled with the patient * Allergies:??N.K.D.A. Objective: * Vitals:??Temp: 98, RR: 20, H R: 68, BP: 122/84, Ht: 63, Wt: 181, BMI:32.06. * Examination: ?General Examination: ?General??Pleasant and Cooperative, NAD on RA,.?Heart:??Regular Rate and Rhythm, no murmur, rubs or gallops.?Lungs:??clear to auscultation,.?Extremities:??markedly limited ROM left hip due to pain, surgical incision left hip and knee are well healed, pain with hip flexion and any rotation.?Psych??Normal Mood/Affect.? Assessment: * Assessment: 1.??Left hip pain - M25.552 (Primary)??2.??Lumbar degenerative disc disease - M51.36??3.??Decreased range of left hip movement - M25.652??4.??Status post left hip replacement - Z96.642?? Plan: * Treatment: * Notes: Recommend MRI given her h/o replacement and trauma 5 months ago with increasing pain, decreased mobility? Referral To: ?Reason:MRI left hip at [facility] 2.??Lumbar degenerative disc disease?? Notes: keep appt with pain management for injections this week?3.??Decreased range of left hip movement?Imaging: MRI : Hip, Left* This DI was reviewed by Isabelle Bedolla on 08/02/2023 at 14:03 PM EDT * 4.??Status post left hip replacement?Imaging: MRI : Hip, Left* This DI was reviewed by Isabelle Bedolla on 08/02/2023 at 14:03 PM EDT * * Follow Up:??prn * * Sign off status: Completed true * Provider:??ELIAZAR Pollock Date: ??07/25/2023 History and Physical Notes * Examination Category Sub-Category Detail Notes General Examination Heart: Regular Rate and Rhythm, no murmur, rubs or gallops Lungs: clear to auscultatio n, Extremities: markedly limited ROM left hip due to pain, surgical incision left hip and knee are well healed, pain with hip flexion and any rotation General Pleasant and Coopera tive, NAD on RA, Psych Normal Mood/Affect Consultation Request Notes Referral Date Referring Provider Referred Provider Not pal 07/26/2023 Amber Bedolla , NORM left hip at [facility]
--- OUTSIDE RECORDS SUMMARY | 2023-09-22 13:58 | XMS_ITS ---
Author Name Unknown Organization [facility] [place] Address [address] [place] [address] Care Team Providers Care Machinist Job Setter Name Role Phone Charles Beckford Primary Care Provider [phone] Amber Bedolla [phone] ALLERGIES No Known Allergies REASON FOR REFERRAL Reason Please send triny pedro kit Diagnosis 1 Colon cancer screeni kelley (Z12.11) Referral Organization [facility] Referring Provider First Name Amber Referring Provider Last Name Chioma Referring Provider Speciality Family Pra vaice Referred Provider Diana mars General Notes Amber Bedolla 03:23:21 PM > faxed order Referral Priority Routine REASON FOR VISIT Medicare Wellness MEDICATIONS Medication SIG (Take, Route, Frequency, Duration) Notes Start Date End Date Status hydroxychloroquine 200 mg 1 tab(s) orall y 2 times a day for 90 days 04/08/2022 Active ZyrTEC 10 mg 1 tab(s) orally once a day prn Active Vitamin B12 2500 mcg 1 tab(s) sublingual ly once a day for 30 day(s) Active nitrofurantoin macrocrystals 50 mg 1 cap(s) orally once a day at bedtime Active Ozempic 2 mg/3 mL (0.25 mg or 0.5 mg dose) as directed subcutaneously once a week Active Gemtesa 75 mg 1 tab(s) orally once a day for 90 days 08/17/2023 Active gabapentin 300 mg 1 cap(s) orally 1 ta b in morning and 2 tabs at bedtime Active LaMICtal 150MG 1 tab(s) orally 2 ti mes a day for 90 days Active Diclofenac Sodium Topical 1% 2 grams sheila lied topically 4 times a day for 90 days 12/10/2022 Active Mobic 15 mg 1 tab(s) orally once a day for 90 days Active omeprazole 20 mg 1 cap(s) orally once a day for 90 days Active Estradiol Vaginal 0.1 mg/g as directed intravaginally 2 times per week for 30 days 07/27/2022 Active IMMUNIZATIONS Vaccine Route Administration Date Status Comme nts Arexvy Unknown 08/17/2023 Administered Boostrix IM Intramuscular 08/17/2023 Administered PROBLEMS Problem Type ICD Code Onset Dates Problem Status W/U Status Risk SNOMED Code Notes Problem BMI 33.0-33.9,adult (Z68.33) Active confirmed 172351120 Problem Rheumatoid arthritis involving multiple sites with positive rheumatoid factor (M05.79) Active confirmed 077261979 Problem OAB (overactive bladder) (N32.81) Active confirmed 209705112 Problem Frequent falls (R29.6) Active confirmed 852752557 VITAL SIGNS Temperature 97.8 degrees Fahrenheit 08/17/19 24 Blood pressure systolic 118 mm Hg 08/17/19 24 Blood pressure diastolic 74 mm Hg 024 Heart Rate 74 /min 08/17/2023 Height 63 in 08/17/2023 Weight 191 lbs 08/17/2023 BMI 33.83 kg/m2 08/17/2023 Encounters Encounter Location Date Provider Diagnosis [address] [address] 08/17/2023 Amber Bedolla Arthralgia of multip le sites M25.50 ; [...] falls R29.6 and Need for vaccination Z23 ASSESSMENTS Encounter Date Diagnosis Assessment Notes Treatment Notes Treatment Clinical Notes 08/17/2023 Arthralgia of multiple sites (ICD-10 - M25.50) multiple specialists following 08/17/2023 Medicare annual wellness visit, initial (ICD-10 - Z00.00) Mamm and DEXA this fall, Cologuard. Vaccinations as noted. 08/17/2023 Lumbar degenerative disc disease (ICD-10 - M51.36) 08/17/2023 Renal cyst (ICD-10 - N28.1) stable [...] vaccination (ICD-10 - Z23) PLAN OF TREATMENT Medication Medication Name Sig Start Date Stop Date Notes Gemtesa 75 mg 1 tab(s) orally once a day for 90 days 08/17/2023 oxyBUTYnin 10 mg/24 hr 1 tab(s) orally once a day Treatment Notes Assessment Notes Arthralgia of multiple sites multiple sp ecialists following Medicare annual wellness visit, initial Mamm and DEXA this fall, Cologuard. Vaccinations as noted. Renal cyst stable on imaging, u rology did not recommend routine FU Mood disorder stable on lamictal BMI 33.0-33.9,adult on Ozempic and usman ating Rheumatoid arthritis involvi ng multiple sites with positive rheumatoid factor rheumatology following OAB (overactive bladder) trial of Gemtes a Recurrent UTI continue macrodantin for now Frequent falls secondary to lower e xtremity weakness...working with PT and specialty services Referrals Referral Date Details Please send triny pedro kit , [employer] cologuard Next Appt Details Follow Up: 6 Months, Reason: Progress Notes * Nory CEJA GDOB:[birth year] (68 yo F)Acc No.[id number]:08/17/2023 Progress Notes Patient:??Nory CEJA Provider:??ELIAZAR Pollock :1955?Age:68 Y?Sex:Fe male Date:08/17/2023 Address:[address], [place], [id number] Pcp:Charles Beckford Subjective: * Chief Complaints: * ?1. Medicare Wellness. * HPI: ?gen:? 68 yr old female presents today for annual Medicare wellness, chronic disease FU. No acute concerns. ?She is followed routinely by orthopedics ( for shoulder, Dr Rowan for hips and knees), Rheumatology for RA and fibromyalgia, NS at for LS DDD s/p L4-5 fusion and pain management at [facility]. Undergoing nerve blocks to help with pain relief and diagnostic purposes because of significantly increased back pain and radicular pain in the left leg with difficulty ambulating. Multiple falls but no injuries requiring attention. ?On ozempic for about 3 weeks, down 6 pounds. Samples. No side effects. ? OAB symptoms improved on oxybutynin but over-drying. No recent UTI since being on preventive nitrofuratoin. ?No recent dysphagia as long as taking PPI ?Using topical compound from pain management instead of voltaren. * ROS:?FUNCTIONAL STATUS:?ADLS??Independent for all ADL/IADL.?RESPIRATORY:?no??Shortness of breath.??no??Chest pain.??no??Chest congestion.??no??Cough.?CARDIOLOGY:?Dizziness??yes,??occasional vertigo.??no??Chest pain.??no??Palpitations.??Leg edema??yes,??occasional.??no??Shortness of breath.?CONSTITUTIONAL:?Weight gain??yes.?DERMATOLOGY:?no??Rash.?GASTROENTEROLOGY:?Heartburn??yes.??no??Vomiting.??no??Abdominal pain.??no??Diarrhea.??no??Constipation.?MUSCULOSKELETAL:?See HPI??Yes.?NEUROLOGY:?no??Headache.??Tingling numbness??yes.??no??Seizures.??no??Insomnia.??Dizziness??yes,??with movement of head, chronic, recurrent, improves with zyrtec.?OPTHALMOLOGY:?Reviewed, No Symptoms Reported:??Yes.?PSYCHOLOGY:?no??Depression,??mood stable on lamictal.??no??Sleep disturbances.?UROLOGY:?no??Difficulty urinating.??Urinary incontinence??yes,??small amount, with coughing or sneezing.? * Medical History:??Hormone re placement therapy, Bilat knee osteoarthritis, GERD with stricture of esophagus, Mood disorder, LS DDD, Renal cysts, Rheumatoid arthritis. * Surgical History:??eye surge ry during childhood , EGD August 2017 with chronic gastritis, negative biopsies , right knee meniscus repair 2017, Dr Rowan , Left total knee replacement 01/2019, right total knee replacement 02/2019, LEFT hip replacement 2019, Lumbar fusion L4-L5 12/2021, Rt shoulder 02/2023. * Hospitalization/Major Diagno stic Procedure:?? x 3 , UTI 01/1980, [facility]- Left total knee 01/2019, [facility]-right total knee 02/2019, [facility] - Left hip replacement . * Family History:??Father: ali ve, prostate cancer and cirrhosis.??Mother: , hypertension, diabetes, type II, vitamin B 12 defiency, macular degeneration.??Paternal Grand Father: .??Paternal Grand Mother: .??Maternal Grand Father: , rheumatoid arthritis.??Maternal Grand Mother: , diabetes, type II.??Paternal uncle: diabetes, [place].??Paternal aunt: rheumatoid arthritis, diabetes, HLP, macular degeneration.??Maternal aunt: breast cancer, diabetes, CHF, HLP, osteoarthritis, macular degeneration.??Children: rheumatoid arthritis, oldest daughter breast cancer, diagnosed with Cancer.??1 brother(s) , 1 sister(s) - healthy. 3 daughter(s) . .?? * Social History:??Smoking: no ??Are you a:: nonsmoker.??Recreational drug use: no. Exercise: yes, Therapy. Home smoke detector use: yes. Caffeine: yes, frequency:1 soda qd. Living Will: Yes. Alcohol: socially, Type: wine , Frequency:rarely ,Years: , Determination:. Sexually active: yes. Travel outside [place]: yes, [place]. Occupation: Retired. * Medications:??Taking Ozempic 2 mg/3 mL (0.25 mg or 0.5 mg dose) solution as directed subcutaneously once a week , Taking nitrofurantoin macrocrystals 50 mg capsule 1 cap(s) orally once a day at bedtime , Taking oxyBUTYnin 10 mg/24 hr tablet, extended release 1 tab(s) orally once a day , Taking gabapentin 300 mg capsule 1 cap(s) orally 1 tab in morning and 2 tabs at bedtime , Taking Vitamin B12 2500 mcg tablet 1 tab(s) sublingually once a day , Taking ZyrTEC 10 mg tablet 1 tab(s) orally once a day prn , Taking hydroxychloroquine 200 mg tablet 1 tab(s) orally 2 times a day , Taking Estradiol Vaginal 0.1 mg/g cream as directed intravaginally 2 times per week , Taking omeprazole 20 mg delayed release capsule 1 cap(s) orally once a day , Taking LaMICtal 150MG tablet 1 tab(s) orally 2 times a day , Taking Mobic 15 mg tablet 1 tab(s) orally once a day , Taking Diclofenac Sodium Topical 1% gel 2 grams applied topically 4 times a day , Discontinued EPINEPHrine 0.3 mg kit 0.3 mg intramuscularly once , Notes to Pharmacist: ok for generic, Discontinued Valtrex 1 g tablet 1 tab(s) orally once a day , Notes to Pharmacist: prn, Discontinued baclofen 10 mg tablet 1 tab(s) orally 3 times a day as needed for muscle spasm , Medication List reviewed and reconciled with the patient * Allergies:??N.K.D.A. Objective: * Vitals:??Nurse: dw, Temp: 97 .8, RR: 20, HR: 74, BP: 118/74, Ht: 63, Wt: 191, BMI:33.83. * Examination: ?General Examination: ?General??Pleasant and Cooperative, NAD on RA.?Oral cavity:??no lesions.?Breasts :?? no lumps felt on either side.?Heart:??RRR. 1/6 systolic murmur.?HEENT:??pharynx and tonsils normal, TM's normal.?Lungs:??clear to auscultation.?Abdomen:??soft, NT/ND, BS present, no masses palpated, no hepatosplenomegaly.?Neurologic Exam:?? no focal signs,, Alert and oriented x 3.?Skin:??normal, no rash.?Peripheral pulses:??normal (2+) bilaterally.?Extremities:??no clubbing, no edema, bilat anterior knee incisions are well healed, bilat feet with mild bunion deformity and early hammer toe deformity bilat 2nd toe. 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 Assessment: * Assessment: 1.??Medicare annual wellness visit, initial - Z00.00 (Primary)??2.??Arthralgia of multiple sites - M25.50??3.??Lumbar degenerative disc disease - M51.36??4.??Renal cyst - N28.1??5.??Mood disorder - F39??6.??BMI 33.0-33.9,adult - Z68.33??7.??Rheumatoid arthritis involving multiple sites with positive rheumatoid factor - M05.79??8.??Colon cancer screening - Z12.11??9.??OAB (overactive bladder) - N32.81??10.??Recurrent UTI - N39.0??11.??Frequent falls - R29.6??12.??Need for vaccination - Z23?? Plan: * Treatment: 2.??Arthralgia of multiple s ites?? Notes: multiple specialists following? 3.??Renal cyst?? Notes: stable on imaging, urology did not recommend routine FU? 4.??Mood disorder?? Notes: stable on lamictal? 5.??BMI 33.0-33.9,adult?? Notes: on Ozempic and tolerating? 6.??Rheumatoid arthritis inv olving multiple sites with positive rheumatoid factor?? Notes: rheumatology following? 7.??Colon cancer screening? Referral To:[employer] cologuard ?Reason:Please send screening kit 8.??OAB (overactive bladder) ?? Stop oxyBUTYnin tablet, extended release, 10 mg/24 hr, 1 tab(s), orally, once a day;??Start Gemtesa tablet, 75 mg, 1 tab(s), orally, once a day, 90 days, 90 Tablet, Refills 1.? Notes: trial of Gemtesa? 9.??Recurrent UTI?? Notes: continue macrodantin for now? 10.??Frequent falls?? Notes: secondary to lower extremity weakness...working with PT and specialty services? * Immunizations:? Arexvy (Dose No:1) given by KARUNA Hernandez on Left Deltoid? Boostrix : .5 mL (Dose No:1) (Route: Intramuscular) given by KARUNA Hernandez on Right Deltoid * Procedure Codes:??87194 Arex vy, 41752 ADMINISTRATION IMMUNIZATION ONE VACCINE, 86678 Boostrix, 04330 immunization administration through 18 years of age via any route of administration., G0438 [facility]; PERSNL PPS INIT, G8399 PT W/DXA DOCUMENT OR ORDER, 1123F ADVANCED DIRECTIVE - HAS A LIVING WILL, G9899 Screening diagnostic,film,digital results documented and reviewed, 3017F COLORECTAL CA SCREEN DOC REV, G8469 BMI >=30 CALCUATE W/FOLLOWUP, G9447 DOC PT HAS ACTIV DX DEPR/BIPOLR D/O, G9613 Pt scrn tbco id as non user, G9426 PATIENT NOT ELIG D/T ACTIVE DX HTN * Preventive Medicine:?Counseling:??Living will??Has living will.?SHEILA Screening:??Falls: Future screening for fall risks??Have you had two or more falls in the past year???Yes,??Have you had any falls with injury in the past year???No.?Depression Screening:??PHQ 2??Feeling down depressed or hopeless??No.?Immunizations:??influenza??Have you had a flu shot since the most recent November 05 ???Yes.??Pneumonia vaccine: Status for Older Adults??Are you up-to-date on your pneumonia vaccine? yes or no??PCV 20 today, UTD.??Tdap??Done today in office.??Hepatitis A??Completed series.??Shingrix??Discussed and will consider.??COVID??Completed series.??RSV vaccination??Completed for season.?Screening / Special Tests:??Mammogram??up to date.??Pap Smear??2014.??Colonoscopy??2008, delayed due to other surgeries, good candidate for Cologuard.??Bone mineral Density??plan to do later this fall with mammogram.??Lung Cancer Screening??Not indicated - nonsmoker.?? * Follow Up:??6 Months * * Sign off status: Completed true * Provider:??ELIAZAR Pollock Date: ??08/17/2023 History and Physical Notes * Examination Category Sub-Category Detail Notes General Examination HEENT: pharynx and tonsils normal, TM's normal Heart: RRR. 1/6 systolic mu rmur Lungs: clear to auscultatio n Abdomen: soft, NT/ND, BS pres ent, no masses palpated, no hepatosplenomegaly Extremities: no clubbing, no lana a, bilat anterior knee incisions are well healed, bilat feet with mild bunion deformity and early hammer toe deformity bilat 2nd toe. 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
[2023-09-22 14:19] VITALS: BP 139/78; PULSE 88; RESP 18; O2SAT 99; BMI 30.9
--- NOTE | 2023-09-22 15:01 | EXP.PAIN.SOA ---
[facility] Disclaimer: The information contained in this section may have been updated after the patient was seen, as this information can be updated by other users. Medical History Rheumatoid arthritis Motion sickness Kidney stones GERD (gastroesophageal reflux disease) Dental disease Arthritis Surgical History H/O repair of rotator cuff History of lumbar spinal fusion H/O total hip arthroplasty H/O total knee replacement Family History Other Arthritis Diabetes Hyperlipidemia Hypertension Social History Smoking Status: Never smoker alcohol intake: current alcohol intake frequency: holidays/special occasions only current occupational status: other Travel in the last 8 weeks: None caffeine: Yes PM Subjective & Objective Subjective Subjective:: Patient is a pleasant 68-year-old female who presents today for follow-up of left transforaminal epidural steroid injection L3-L4 and L4-L5 on 08/30/2023. Patient denies pain that she has had significant relief following this injection and feels like it did not do at least 70%. Patient feels like that she has been able to move around easier with decreased pain. She states that her entire leg pain is officially gone. Patient does state that she has been babying things due to worry and that she might cause a flareup. She does state that she has a follow-up with Dr. Diallo's office on October 06. Patient does also state that she starts at the [facility] on November 06. Her Harrison has been reviewed and is appropriate. Review of Systems: General: No recent weight changes, no fever, no sleep disturbances Respiratory: No cough, no shortness of air, no recurring pulmonary infections Cardiovascular/peripheral vascular: No chest pain, no palpitations, no edema, no shortness of breath Gastrointestinal: No new onset incontinence, normal bowel movements reported Genitourinary: No new onset incontinence Musculoskeletal: Low back pain Psychiatric: [Normal mood/affect] Neurological: [Denies weakness in extremities], [denies balance issues] Pain at rest (0-10 scale): 1 Objective Objective:: Physical Exam: General: Alert and oriented x3, no acute distress, pleasant and cooperative Lungs: Respirations even and unlabored, symmetrical chest expansion Eyes: PERRL Musculoskeletal: Flexion and extension of lumbar [spine] somewhat guarded secondary to pain, [antalgic gait noted] Neurological: Speech clear, no gross sensory deficit Has patient had previous pain injection?: Yes Percent improvement in pain since last injection: 70% Conservative treatment options previously tried: Home exercise plan Length of treatment: Longer than 6 weeks Meds Home Medications and Allergies Home Medications Medication Instructions Recorded Confirmed Type conjugated estrogens 0.45 mg 0.45 mg PO DAILY Supplement 07/24/17 09/22/23 History tablet (Premarin) ibuprofen 800 mg-famotidine 26.6 1 ea PO DAILY Pain 07/24/17 09/22/23 History mg tablet (Duexis) lamotrigine 150 mg tablet 150 mg PO DAILY rash 07/24/17 09/22/23 History (Lamictal) valacyclovir 1 gram tablet 1,000 mg PO DAILY PRN fever 07/24/17 09/22/23 History (Valtrex) blisters omeprazole 20 mg capsule,delayed 20 mg PO DAILY stomach 08/19/17 09/22/23 History release New Prescriptions to Start Prescriptions: Allergies Allergy/AdvReac Type Severity Reaction Status Date / Time No Known Allergies Allergy Verified 08/30/23 10:49 Assessment and Plan *Assessment and plan (1) Lumbar nerve root impingement: Status: Acute Category: Medical Code(s): M54.16 - Radiculopathy, lumbar region (2) Lumbar facet arthropathy: Status: Acute Category: Medical Code(s): M47.816 - Spondylosis without myelopathy or radiculopathy, lumbar region (3) History of lumbar fusion: Status: Acute Category: Surgical Code(s): Z98.1 - Arthrodesis status (4) Sacroiliitis: Status: Acute Category: Medical Code(s): M46.1 - Sacroiliitis, not elsewhere classified (5) Lumbar radiculopathy: Status: Acute Category: Medical Code(s): M54.16 - Radiculopathy, lumbar region Plan Patient has had significant improvement and does not require any additional injection therapy at this time. Patient will return to clinic in 1 month for reevaluation of symptoms and plan of care. Patient has been instructed to contact the clinic with any concerns before the next appointment. Dr. Peter has reviewed this note and agrees with this plan of care. This note was dictated using voice recognition software and make contain errors or omissions.
== END 2023-09-22 23:59 | disposition home or self-care (01) ==
LOC: SC.PAIN 13:56
PROVIDERS: Visit Provider Nurse Practitioner Family
DX: Z98.1 Arthrodesis status; M46.1 Sacroiliitis, not elsewhere classified; M47.26 Other spondylosis with radiculopathy, lumbar region
CPT/HCPCS: 99212; G0463

== ENCOUNTER 2023-10-24 11:20 | Outpatient (POV) | payer MEDICARE, OTHER, SELFPAY ==
--- OUTSIDE RECORDS SUMMARY | 2023-10-24 11:23 | XMS_ITS ---
Author Organization [facility] [place] Address [address] [facility] [address] [place] [address] Care Team Providers Care Cruise Counselor Name Role Phone Charles Beckford Primary Care Provider [phone] Amber Bedolla [phone] REASON FOR VISIT Medication for travel MEDICATIONS Medication SIG (Take, Route, Fr equency, Duration) Notes Start Date End Date Status ciprofloxacin 500 mg 1 tab(s) orally ashli ry 12 hours for 10 days 10/23/2023 Active cyclobenzaprine 10 mg 1 tab(s) orally on ce a day as needed for spasm for 90 days 10/23/2023 Act alyson Encounters Encounter Location Date Provider Diagnosis [facility] [address] [facility] [address] [place] [address] 10/23/2023 Amber Bedolla PLAN OF TREATMENT Medication Medication Name Sig Start Date Stop Date Notes ciprofloxacin 500 mg 1 tab(s) orally ashli ry 12 hours for 10 days 10/23/2023 cyclobenzaprine 10 mg 1 tab(s) orally on ce a day as needed for spasm for 90 days 10/23/2023 Progress Notes * Nory CEJA GDOB:[birth year] (68 yo F)Acc No.[id number]:10/23/2023 Patient:??Nory CEJA :1955?Age:68 Y?Sex:Fe male Address:[address], [place] [address] * Refills?? Start ciprofloxacin tablet, 500 mg, orally, 20, 1 tab(s), every 12 hours, 10 days, Refills=0 Start cyclobenzaprine tablet, 10 mg, orally, 90, 1 tab(s), once a day as needed for spasm, 90 days, Refills=1 * true * Date:??
--- OUTSIDE RECORDS SUMMARY | 2023-10-24 11:23 | XMS_ITS ---
Author Organization [facility] D [place] Address [address] [place] [address] Care Team Providers Care Welding Machine Operator Submerged Arc Name Role Phone Charles Beckford Primary Care Provider [phone] Amber Bedolla [phone] ALLERGIES No Known Allergies REASON FOR REFERRAL Reason Please send triny pedro kit Diagnosis 1 Colon cancer screeni kelley (Z12.11) Referral Organization [facility] RE[facility] Referring Provider First Name Amber Referring Provider Last Name Chioma Referring Provider Speciality Family Pra ctice Referred Provider Diana mars General Notes Amber [...] Notes Problem BMI 33.0-33.9,adult (Z68.33) Active confirmed 868420180 Problem Rheumatoid arthritis involving multiple sites with positive rheumatoid factor (M05.79) Active confirmed 367751181 Problem OAB (overactive bladder) (N32.81) Active confirmed 760086933 Problem Frequent falls (R29.6) Active confirmed 299640982 VITAL SIGNS Temperature 97.8 degrees Fahrenheit 08/17/19 24 Heart Rate 74 /min 08/17/2023 Blood pressure systolic 118 mm Hg 08/17/19 24 Blood pressure diastolic 74 mm Hg 024 Height 63 in 08/17/2023 Weight 191 lbs 08/17/2023 BMI 33.83 kg/m2 08/17/2023 Encounters Encounter Location Date Provider Diagnosis [address] [address] 08/17/2023 Amber Bedolla Arthralgia of multip le [...] * Nory CEJA GDOB:[birth year] (68 yo F)Acc No.[id number]:08/17/2023 Progress Notes Patient:??Nory CEJA Provider:??ELIAZAR Pollock :1955?Age:68 Y?Sex:Fe male Date:08/17/2023 Address:[address], [place], [id number] Pcp:Charles Beckford Subjective: * Chief Complaints: * ?1. Medicare Wellness. * HPI: ?gen:? 68 yr old female presents today for annual Medicare wellness, chronic disease FU. No acute concerns. ?She is followed routinely by orthopedics ( for shoulder, Dr Rowan for hips and knees), Rheumatology for RA and fibromyalgia, NS at for LS DDD s/p L4-5 fusion and pain management at [facility]. Undergoing nerve blocks to help with [...] Mother: , diabetes, type II.??Paternal uncle: diabetes, [place].??Paternal aunt: rheumatoid arthritis, diabetes, HLP, macular degeneration.??Maternal [...] the patient * Allergies:??N.K.D.A. Objective: * Vitals:??Nurse: masoud, Temp: 97 .8, RR: 20, HR: 74, [...] 2-4 MCP bilat.?neck??supple, no thyromegaly, no lymphadenopathy.?Psych??Normal Mood/Affect.?SURG TECH: ?breasts??normal bilateral.? Assessment: * Assessment: 1.??Medicare annual [...] KARUNA Hernandez on Right Deltoid * Procedure Codes:??15761 Arex vy, 64980 ADMINISTRATION IMMUNIZATION ONE VACCINE, 95404 Boostrix, 71081 immunization administration through 18 years of age via any route of administration., G0438 [facility]; PERSNL PPS INIT, G8399 PT W/DXA DOCUMENT OR ORDER, 1123F ADVANCED DIRECTIVE - HAS A LIVING WILL, G9899 Screening diagnostic,film,digital results documented and reviewed, 3017F COLORECTAL CA SCREEN DOC REV, G8479 BMI >=30 CALCUATE W/FOLLOWUP, G9857 DOC PT HAS ACTIV DX DEPR/BIPOLR D/O, G9353 Pt scrn tbco id as non user, G9883 PATIENT NOT ELIG D/T ACTIVE DX HTN [...] tive, NAD on RA Psych Normal Mood/Affect SURG TECH breasts normal bilateral Consultation Request Notes Referral Date Referring Provider Referred Provider Not es 08/17/2023 Amber Bedolla, [employer] Please send screening kit
--- OUTSIDE RECORDS SUMMARY | 2023-10-24 11:24 | XMS_ITS ---
Author Organization [facility] Address [address] [place] [address] Care Team Providers Care Research Phlebotomist Name Role Phone Charles Beckford Primary Care Provider Amber Bedolla Scott [phone] REASON FOR VISIT Labs Encounters Encounter Location Date Provider Diagnosis [facility] [address] [place] [address] 07/26/2023 Amber Bedolla Weight gain R63.5 ASSESSMENTS Encounter Date Diagnosis Assessment Notes Treatment Notes Treatment Clinical Notes 07/26/2023 Weight gain (ICD-10 - R63.5) PLAN OF TREATMENT Pending Test Test Name Order Date LIPID PANEL, STANDARD (7600) 07/26/2023 HEMOGLOBIN A1c (496) 07/26/2023 TSH W/REFLEX TO FT4 (45496) 07/26/2023 Progress Notes * Nory CEJA GDOB:[birth year] (68 yo F)Acc No.[id number]:07/26/2023 Patient:??Nory CEJA :1955?Age:68 Y?Sex:Fe male Address:[place] [address] Subjective: * Chief Complaints: * ?Labs * Medical History:?? * Surgical History:?? * Hospitalization/Major Diagno stic Procedure:?? * Medications:?? Objective: Assessment: * Assessment: 1.??Weight gain - R63.5 (Tracee dukes)?? Plan: * Treatment: * Procedure Codes:?? * true * Date:??
--- OUTSIDE RECORDS SUMMARY | 2023-10-24 11:24 | XMS_ITS | Patient Health Record ---
Author Organization [facility] Address [address] [place] [address] Care Team Providers Care Rate Analyst Name Role Phone Charles Beckford Primary Care Provider Amber Bedolla Unavailable [phone] ALLERGIES No Known Allergies RESULTS Component Value Reference Range Notes X ray : Chest Reviewed date:11/11/2022 05:41:26 [...] Performing Lab: Notes/Report: TSH 2.76 0.465-4.68 uIU/mL Mammogram : Bilateral Reviewed date:01/19/2023 05:36:31 PM Interpretation: Performing Lab: Notes/Report: REASON FOR REFERRAL Reason Dr. Peter Diagnosis 1 Lumbar degenerative disc disease (M51.36) Diagnosis 2 Acute left-sided low back pain with left-sided sciatica (M54.42) Diagnosis 3 Lumbago with sciatic a, right side (M54.41) Referral Organization [facility] Referring Provider First Name Charles Referring Provider Last Name Analy Referring Provider [facility] Internal edicine General Notes Mei Isabel 2023 02:43:48 PM >Referral sent to Dr. Peter Referral Priority Routine Reason MRI left hip at [facility] Diagnostic Diagnosis 1 Left hip pain (M25.5 52) Referral Organization [facility] Referring Provider First Name Amber Referring Provider Last Name Chioma Referring Provider [facility] General Notes Sabrina Bello 09:08:24 AM > faxed and they will call her to schedule Referral Priority Routine Reason Please send screenin g kit Diagnosis 1 Colon cancer screeni ng (Z12.11) Referral Organization [facility] Referring Provider First Name Amber Referring Provider Last Name Chioma Referring Provider [facility] Referred Provider [facility] General Notes Amebr Bedolla 03:23:21 PM > faxed order Referral Priority Routine MEDICATIONS Medication SIG (Take, Route, Frequency, Duration) Notes Start Date End Date Status LaMICtal 150MG 1 tab(s) orally 2 ti [...] once a day for 90 days Active ciprofloxacin 500 mg 1 tab(s) orally ashli ry 12 hours for 10 days 10/23/2023 Active hydroxychloroquine 200 mg 1 tab(s) orall y 2 times a day for 90 days 04/08/2022 Active cyclobenzaprine 10 mg 1 tab(s) orally on ce a day as needed for spasm for 90 days 10/23/2023 Active omeprazole 20 mg 1 cap(s) orally once a day for 90 days Active Estradiol Vaginal 0.1 mg/g as directed intravaginally 2 times per week for 30 days 07/27/2022 Active nitrofurantoin macrocrystals 50 mg 1 cap(s) orally once a day at bedtime for 90 days Active ZyrTEC 10 mg 1 tab(s) orally [...] with sciatica, right side (M54.41) Active confirmed 414430945 Problem BMI 31.0-31.9,adult (Z68.31) Active confirmed 704522745 Problem BMI 33.0-33.9,adult (Z68.33) Active confirmed 215302653 Problem Other chronic pain (G89.29) Active confirmed 71926725 Problem Gastroesophageal reflux disease, esophagitis presence not specified (K21.9) Active confirmed 309950172 Problem Primary osteoarthritis of both knees (M17.0) Active confirmed 562982351 Problem Frequent falls (R29.6) Active confirmed 974181836 Problem Mood disorder (F39) Active confirmed 46 367695 Problem Rheumatoid arthritis involving multiple sites with positive rheumatoid factor (M05.79) Active confirmed 811157975 Problem OAB (overactive bladder) (N32.81) Active confirmed 055183007 Problem Iron deficiency anemia, unspecified iron deficiency anemia type (D50.9) Active confirmed 86063508 Problem Lumbar degenerative disc disease (M51.36) Active confirmed 91478086 Problem Arthralgia of multiple sites (M25.50) Active confirmed 30162486 Problem BMI 29.0-29.9,adult (Z68.29) Active confirmed 39739401 Problem 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) Active confirmed 192989347 Problem Renal cyst (N28.1) Active confirmed 722 896302 Problem Acute left-sided low back pain with left-sided sciatica (M54.42) Active confirmed 944100837 Problem Primary osteoarthritis of left hip (M16.12) Active confirmed 554827910722477 Problem Suprapatellar bursitis of left knee (M70.52) Active confirmed 7428571839425700 Problem Esophageal dysphagia (R13.10) Active confirmed 08152047 Problem Suprapatellar bursitis of right knee (M70.51) Active confirmed 3019300812227381 Problem Postoperative examination (Z09) Active confirmed 203251026 Problem Difficulty walking (R26.2) Active confirmed 332589382 VITAL SIGNS Heart Rate 74 /min 08/17/2023 Temperature 97.8 degrees Fahrenheit 08/17/2023 Blood pressure diastolic 74 mm Hg 08/17/2023 Height 63 in 08/17/2023 Blood pressure systolic 118 mm Hg 08/17/2023 Weight 191 lbs 08/17/2023 BMI 33.83 kg/m2 08/17/2023 Encounters Encounter Location Date Provider Diagnosis [facility] [address] [facility] [address] [place] [address] 07/25/2023 Amber Bedolla Left hip pain M25.55 2 ; Lumbar degenerative disc disease M51.36 ; Decreased range of left hip movement M25.652 and Status post left hip replacement Z96.642 [facility] [address] [address] 08/17/2023 Amber Bedolla Arthralgia of multip le [...] falls R29.6 and Need for vaccination Z23 [facility] [address] [facility] [address] [place], [place] [address] 11/08/2022 Charles Besson Cough due to bronchospasm J98.01 [facility] [address] [facility] [address] [place] [address] 11/16/2022 Amber Bedolla [facility] [address] [facility] [address] [place] [address] 12/10/2022 Amber Lozadaence [facility] [address] [address] 01/12/2023 Amber Bedolla Screening mammogram, encounter for Z12.31 [facility] [address] [facility] [address] [place] [address] 01/22/2023 Amber Chioma [facility] [address] [place] [address] 02/09/2023 Amber Chioma [facility] [address] [place] [address] 04/13/2023 Amber Chioma [facility] [address] [place] [address] 04/27/2023 Amber Chioma [facility] [address] [place] [address] [facility] Lumbago with sciatic a, right side M54.41 ; Other chronic pain G89.29 ; S/P lumbar fusion Z98.1 and Right leg weakness R29.898 [facility] [address] [facility] [address] [place], [place] [address] 06/30/2023 Amber Chioma Lumbar degenerative disc disease M51.36 and Acute left-sided low back pain with left-sided sciatica M54.42 [facility] [address] [facility] [address] [place] [address] 07/11/2023 Amber Chioma [facility] [address] [place] [address] 07/18/2023 Amber Chioma [facility] [address] [place] [address] 07/19/2023 Amber Chioma [facility] [address] [facility] [address] [place] [address] 07/25/2023 Amber Chioma Left hip pain M25.55 2 ; Difficulty walking R26.2 and Status post left hip replacement Z96.642 [facility] [address] [place] [address] 07/26/2023 Amber Chioma Weight gain R63.5 [facility] [address] [place] [address] 10/23/2023 Amber Chioma ASSESSMENTS Encounter Date Diagnosis Assessment Notes Treatment [...] (ICD-10 - M25.50) multiple specialists following 08/17/2023 Lumbar degenerative disc disease (ICD-10 - [...] C-KIDNEY STONE ANALYSIS 01/27/2015 C-ASO TITER 07/19/2011 M-WJVF-MARVXI CITRULLINATED PEPTIDE 05/07 Ultrasound : Soft Tissue Abdomen 023 C-TIBC 05/07/2010 M-Erythrocyte Sedimentation Rate 019 M-Lipid Panel 12/20/2018 M-Lipid Panel 10/17/2019 M-Vitamin D 25 Hydroxy 12/20/2018 M-RA Latex Turbid. 12/20/2018 Physical Therapy : Aquatic Therapy 02/22 LIPID PANEL, STANDARD (7600) 07/26/2023 HEMOGLOBIN A1c (496) 07/26/2023 TSH W/REFLEX TO FT4 (42624) 07/26/2023 Future Test Test Name Order Date Mammogram : Left breast 02/10/2010 Insurance Providers Payer Name Payer Address Payer Phone Subscriber Number Group Number Insured Name Patient Relationship to Insured Coverage Start Date Coverage End Date [place] [address] [place] [address] [id number] Nory Ceja Self - patient is the insured [employer] [address] [place] [address] [phone] Nory Ceja Self - patient is the insured [place] [address] [place] [address] [address] [place] [address] ACL Nory Ceja Self - patient is the [...]
[2023-10-24 11:39] VITALS: BP 153/81; PULSE 90; RESP 18; O2SAT 99; BMI 30.9
--- NOTE | 2023-10-24 12:09 | EXP.PAIN.SOA ---
[facility] Disclaimer: The information contained in this section may have been updated after the patient was seen, as this information can be updated by other users. Medical History (Updated 10/24/23 @ 12:12 by Mona Lincoln APRN) Rheumatoid arthritis Motion sickness Kidney stones GERD (gastroesophageal reflux disease) Dental disease Arthritis Surgical History H/O repair of rotator cuff History of lumbar spinal fusion H/O total hip arthroplasty H/O total knee replacement Family History Other Arthritis Diabetes Hyperlipidemia Hypertension Social History Smoking Status: Never smoker alcohol intake: current alcohol intake frequency: holidays/special occasions only current occupational status: retired Travel in the last 8 weeks: None caffeine: Yes PM Subjective & Objective Subjective Subjective:: Patient is a pleasant 68-year-old female who presents today for follow-up. Patient does state her pain today is an 8 out of 10. She denies any new trauma or injury. She does state that her low back pain where she got her previous epidural is still doing wonderful however she is experiencing worsening pain along her low back on the left side and left hip. Patient does describe it as a constant aching, throbbing sensation and denies any radiating symptoms into her lower extremities. Patient does state that she has had bursa injections in the past and these did provide significant relief. Patient does state that the pain is interfering with her ability perform activities of daily living. Patient is interested in any help we may be able to provide. Patient is scheduled to leave for vacation at the end of this month for [place]. Her Harrison has been reviewed and is appropriate. Review of Systems: General: No recent weight changes, no fever, no sleep disturbances Respiratory: No cough, no shortness of air, no recurring pulmonary infections Cardiovascular/peripheral vascular: No chest pain, no palpitations, no edema, no shortness of breath Gastrointestinal: No new onset incontinence, normal bowel movements reported Genitourinary: No new onset incontinence Musculoskeletal: Low back pain, left hip pain Psychiatric: [Normal mood/affect] Neurological: [Denies weakness in extremities], [denies balance issues] Pain at rest (0-10 scale): 8 Objective Objective:: Physical Exam: General: Alert and oriented x3, no acute distress, pleasant and cooperative Lungs: Respirations even and unlabored, symmetrical chest expansion Eyes: PERRL Musculoskeletal: Flexion and extension of lumbar [spine] somewhat guarded secondary to pain, [antalgic gait noted] point tenderness along left SI and left bursa with positive left Karla's, Pasquale's, Gaenslen's, compression and distraction exam Neurological: Speech clear, no gross sensory deficit Has patient had previous pain injection?: No Conservative treatment options previously tried: Home exercise plan Length of treatment: Longer than 6 weeks Meds Home Medications and Allergies Home Medications ?Medication ?Instructions ?Recorded ?Confirmed ?Type conjugated estrogens 0.45 mg 0.45 mg PO DAILY Supplement 07/24/17 10/24/23 History tablet (Premarin) ibuprofen 800 mg-famotidine 26.6 1 ea PO DAILY Pain 07/24/17 10/24/23 History mg tablet (Duexis) lamotrigine 150 mg tablet 150 mg PO DAILY rash 07/24/17 10/24/23 History (Lamictal) valacyclovir 1 gram tablet 1,000 mg PO DAILY PRN fever 07/24/17 10/24/23 History (Valtrex) blisters omeprazole 20 mg capsule,delayed 20 mg PO DAILY stomach 08/19/17 10/24/23 History release New Prescriptions to Start Prescriptions: Allergies Allergy/AdvReac Type Severity Reaction Status Date / Time No Known Allergies Allergy Verified 08/30/23 10:49 Assessment and Plan *Assessment and plan (1) Sacroiliitis: Status: Acute Category: Medical Code(s): M46.1 - Sacroiliitis, not elsewhere classified (2) Greater trochanteric bursitis of left hip: Status: Acute Category: Medical Code(s): M70.62 - Trochanteric bursitis, left hip Plan Patient is experiencing worsening pain in her low back with limited range of motion and point tenderness along her left SI and left bursa. Patient did have a positive Karla's, Pasquale's, Gaenslen's, compression and distraction exam. I did discuss with the patient that she may benefit from both left SI and left bursa injection. Risk and benefits were discussed with the patient and she would like to proceed forward with this plan of care. Patient has tried and failed conservative therapy including continued at home stretching exercise for longer than 6 weeks. Patient will be scheduled for a left SI and left bursa injection under fluoroscopy. Patient has been instructed to contact the clinic with any concerns before the next appointment. Dr. Peter has reviewed this note and agrees with this plan of care. This note was dictated using voice recognition software and make contain errors or omissions. All injections are used with Lidocaine or Bupivacaine and Depo Medrol.
== END 2023-10-24 23:59 | disposition home or self-care (01) ==
LOC: SC.PAIN 11:22
PROVIDERS: PCP Nurse Practitioner Family; Visit Provider Nurse Practitioner Family
DX: M46.1 Sacroiliitis, not elsewhere classified (principal); M70.62 Trochanteric bursitis, left hip; Z73.89 Other problems related to life management difficulty; Z96.653 Presence of artificial knee joint, bilateral
CPT/HCPCS: 99212; G0463

== ENCOUNTER 2023-11-01 13:45 | Day surgery (SDC) | payer MEDICARE, OTHER, SELFPAY ==
[2023-11-01 14:08] VITALS: BP 131/75; PULSE 89; RESP 16; TEMP 36.7; O2SAT 98; BMI 30.9
[2023-11-01 14:29] VITALS: BP 145/78; PULSE 84; RESP 18; O2SAT 98
[2023-11-01] MEDS: methylPREDNISolone ACETATE 80MG/ML VIAL 80 MG (14:37)
[2023-11-01] MEDS: BUPIVACAINE 0.25% 10ML INJ 25 MG IJ (14:37)
[2023-11-01] MEDS: LIDOCAINE 1% 5ML PF VIAL 5 ML (14:37)
--- NOTE | 2023-11-01 14:48 | P.PCN_ITS ---
Procedure Date: 11/01/23 Time: 14:45 Anesthesiologist:: Wes Daigle CRNA Complications:: None Pre-procedure Diagnosis:: Left trochanteric bursitis. Left sacroiliitis. Post-procedure Diagnosis:: Same. Indications for Procedure:: Patient is a very pleasant 68-year-old female comes our clinic today for left trochanteric bursa injection. Also, left sacroiliac joint injection. Patient describes the left lateral hip pain as constant, dull, sharp, stabbing. Patient also reports left posterior hip pain is constant, dull, aching. She rates the pain 7/10 in each area. Patient states she is unable to lie on her left side due to the pain. She is unable to ambulate without some degree of pain. Sitting is difficult due to the pain. Procedure Details:: Procedure: Left sacroiliac injection under fluoroscopy Informed consent was obtained and the risk and benefits of the procedure were explained to the patient.~ The patient was taken to the procedure room and noninvasive monitors were placed including noninvasive blood pressure cuff and pulse oximeter.~ The patient was placed prone on the procedure table.~ The~ left hip was cleansed using Betadine as a cleansing solution.~ C-arm fluorosocpy was used to view the left SI joint.~ The skin and subcutaneous tissues were anesthetized using Lidocaine 1.5% and a 25-gauge needle.~ After this, a 22-gauge spinal needle was inserted under fluoroscopic guidance into the inferior aspect of the left SI joint.~ Omnipaque dye was injected and a good spread was seen throughout the joint.~ After this, approximately 5 mL of bupivacaine 0.25% and Depo-Medrol 40 mg was incrementally injected into the sacroiliac joint.~ The patient tolerated the procedure well with no complications.~ The patient was observed in the Pain Clinic for a period of 30-45 minutes, then discharged home neurologically intact.~ Procedure:Left trochanteric bursa injection under fluoroscopy We then moved to the left trochanteric bursa.~ C-arm fluoroscopy was used to view the left greater trochanter.~ The skin and subcutaneous tissues overlying the left greater trochanter were anesthetized using lidocaine, 1.5% and a 25- gauge needle.~ After this, a 22-gauge spinal needle was inserted and advanced until it contacted the left greater trochanter.~ Dye was injected and good spread was seen throughout the left trochanteric bursa. After this, approximately 5 mL of bupivacaine, 0.25% and Depo-Medrol, 40 mg was i ncrementally injected into the left trochanteric bursa.~ The patient tolerated the procedure well with no complications. Plan and Disposition:: Patient was discharged without incident.
== END 2023-11-01 14:29 | disposition home or self-care (01) ==
LOC: SC.PAINP 13:46
PROVIDERS: PCP Nurse Practitioner Family; Visit Provider Nurse Anesthetist, Certified Registered
DX: M70.62 Trochanteric bursitis, left hip (principal); M46.1 Sacroiliitis, not elsewhere classified
CPT/HCPCS: 20610; 27096; 77002; G0260; J1010

== ENCOUNTER 2023-11-30 10:13 | Outpatient (POV) | payer MEDICARE, OTHER, SELFPAY ==
--- NOTE | 2023-11-30 10:37 | EXP.PAIN.SOA ---
[facility] Disclaimer: The information contained in this section may have been updated after the patient was seen, as this information can be updated by other users. Medical History Rheumatoid arthritis Motion sickness Kidney stones GERD (gastroesophageal reflux disease) Dental disease Arthritis Surgical History H/O repair of rotator cuff History of lumbar spinal fusion H/O total hip arthroplasty H/O total knee replacement Family History Other Arthritis Diabetes Hyperlipidemia Hypertension Social History Smoking Status: Never smoker alcohol intake: current alcohol intake frequency: holidays/special occasions only current occupational status: retired Travel in the last 8 weeks: None caffeine: Yes PM Subjective & Objective Subjective Subjective:: Patient is a pleasant 68-year-old female who presents today for follow-up of left bursa and left SI injection on 11/01/2023. Today she rates her pain a 1 out of 10. Patient denies any new trauma or injury. She does state that that injection gave her approximately 85 to 90% improvement and feels like it still helping. Patient does state that she was able to enjoy her vacation to [place] and that they did a lot of walking and hiking. Patient is still going to the [facility] in [place] for pool therapy and is planning on continuing this. Her Harrison has been reviewed and is appropriate. Injection history: 11/01/2023: Left bursa and left SI injection?85 to 90% improvement 08/30/2023 left transforaminal epidural L3-L4 and L4-L5?70% 07/26/2023 LESI L5-S1- 85 to 90% Review of Systems: General: No recent weight changes, no fever, no sleep disturbances Respiratory: No cough, no shortness of air, no recurring pulmonary infections Cardiovascular/peripheral vascular: No chest pain, no palpitations, no edema, no shortness of breath Gastrointestinal: No new onset incontinence, normal bowel movements reported Genitourinary: No new onset incontinence Musculoskeletal: Low back pain Psychiatric: [Normal mood/affect] Neurological: [Denies weakness in extremities], [denies balance issues] Pain at rest (0-10 scale): 1 Objective Objective:: Physical Exam: General: Alert and oriented x3, no acute distress, pleasant and cooperative Lungs: Respirations even and unlabored, symmetrical chest expansion Eyes: PERRL Musculoskeletal: Flexion and extension of lumbar [spine] somewhat guarded secondary to pain Neurological: Speech clear, no gross sensory deficit Has patient had previous pain injection?: Yes Percent improvement in pain since last injection: 85 to 90% Conservative treatment options previously tried: Home exercise plan Length of treatment: Longer than 6 weeks Meds Home Medications and Allergies Home Medications ?Medication ?Instructions ?Recorded ?Confirmed ?Type conjugated estrogens 0.45 mg 0.45 mg PO DAILY Supplement 07/24/17 11/01/23 History tablet (Premarin) ibuprofen 800 mg-famotidine 26.6 1 ea PO DAILY Pain 07/24/17 11/01/23 History mg tablet (Duexis) lamotrigine 150 mg tablet 150 mg PO DAILY rash 07/24/17 11/01/23 History (Lamictal) valacyclovir 1 gram tablet 1,000 mg PO DAILY PRN fever 07/24/17 11/01/23 History (Valtrex) blisters omeprazole 20 mg capsule,delayed 20 mg PO DAILY stomach 08/19/17 11/01/23 History release New Prescriptions to Start Prescriptions: Allergies Allergy/AdvReac Type Severity Reaction Status Date / Time No Known Allergies Allergy Verified 11/01/23 14:07 Assessment and Plan *Assessment and plan (1) History of lumbar fusion: Status: Acute Category: Surgical Code(s): Z98.1 - Arthrodesis status (2) Lumbar facet arthropathy: Status: Acute Category: Medical Code(s): M47.816 - Spondylosis without myelopathy or radiculopathy, lumbar region (3) Lumbar nerve root impingement: Status: Acute Category: Medical Code(s): M54.16 - Radiculopathy, lumbar region (4) Sacroiliitis: Status: Acute Category: Medical Code(s): M46.1 - Sacroiliitis, not elsewhere classified (5) Lumbar radiculopathy: Status: Acute Category: Medical Code(s): M54.16 - Radiculopathy, lumbar region (6) Degenerative disc disease, lumbar: Status: Acute Category: Medical Code(s): M51.36 - Other intervertebral disc degeneration, lumbar region (7) Greater trochanteric bursitis of left hip: Status: Acute Category: Medical Code(s): M70.62 - Trochanteric bursitis, left hip Plan Patient has had significant improvement and does not require any additional injection therapy at this time. Patient will return to clinic in 1 month for reevaluation of symptoms and plan of care. Patient has been instructed to contact the clinic with any concerns before the next appointment. Dr. Peter has reviewed this note and agrees with this plan of care. This note was dictated using voice recognition software and make contain errors or omissions. All injections are used with Lidocaine or Bupivacaine and Depo Medrol.
[2023-11-30 11:12] VITALS: BP 169/84; PULSE 99; RESP 18; O2SAT 97; BMI 30.1
== END 2023-11-30 23:59 | disposition home or self-care (01) ==
PROVIDERS: PCP Internal Medicine Adolescent Medicine; Visit Provider Nurse Practitioner Family
DX: Z98.1 Arthrodesis status (principal); M46.1 Sacroiliitis, not elsewhere classified; M70.62 Trochanteric bursitis, left hip; M47.26 Other spondylosis with radiculopathy, lumbar region; M51.16 Intervertebral disc disorders with radiculopathy, lumbar region
CPT/HCPCS: 99212; G0463

== ENCOUNTER 2024-02-08 13:08 | Outpatient (POV) | payer MEDICARE, OTHER, SELFPAY ==
--- OUTSIDE RECORDS SUMMARY | 2024-02-08 13:11 | XMS_ITS ---
Author Organization [facility] Address [address] [facility] [address] [place] [address] Care Team Providers Care Manager Air Name Role Phone Charles Beckford Primary Care Provider Amber Bedolla [phone] REASON FOR VISIT Medication for travel Medications Medication SIG (Take, Route, Fr equency, Duration) Notes Start Date End Date Status ciprofloxacin 500 mg 1 tab(s) orally ashli ry 12 hours for 10 days 10/23/2023 Active cyclobenzaprine 10 mg 1 tab(s) orally on ce a day as needed for spasm for 90 days 10/23/2023 Act alyson Encounters Encounter Location Date Provider Diagnosis [facility] [address] [facility] [address] [place] [address] 10/23/2023 Amber Bedolla Plan Of Treatment Medication Medication Name Sig Start Date Stop Date Notes ciprofloxacin 500 mg 1 tab(s) orally ashli ry 12 hours for 10 days 10/23/2023 cyclobenzaprine 10 mg 1 tab(s) orally on ce a day as needed for spasm for 90 days 10/23/2023 Progress Notes * Nory CEJA GDOB:[birth year] (68 yo F)Acc No.[id number]:10/23/2023 Patient:?Nory CEJA :1955???Age:68 Y???Sex:Female Address:[address] [place] [address] * Refills? Start ciprofloxacin tablet, 500 mg, orally, 20, 1 tab(s), every 12 hours, 10 days, Refills=0 Start cyclobenzaprine tablet, 10 mg, orally, 90, 1 tab(s), once a day as needed for spasm, 90 days, Refills=1 * true * Date:? Generated for Will benson/Jennifer/Surjititting on:?02/08/2024 01:11 PM EST
--- OUTSIDE RECORDS SUMMARY | 2024-02-08 13:11 | XMS_ITS | Continuity of Care Document ---
Author Organization Unknown Immunizations Service date Cpt code Cvx code Description Dose Route description Clinician Lot number Client immunization id [id number] 141 Fluvirin--Inf luenza vaccine 3+ year 0.5 cc Right Deltoid aJose Luiscogenesis [id number] 2338 [id number] 40834 141 Fluvirin--Inf luenza vaccine 3+ year 0.5 cc Left Deltoid Dana Patton [id number] 5578 [id number] 27086 135 Fluzone High Dose 0.7 mL Left Deltoid Amber Bedolla [id number] 90707 [phone] 62939 141 Fluvirin--Inf luenza vaccine 3+ year 0.5 cc Left Deltoid Phoebe Ceja [id number] 7640 [phone] 00698 141 Fluvirin--Inf luenza vaccine 3+ year 0.5 cc Left Deltoid Hung Patton [id number] 52071 82285696 58257 158 Influenza-Flu zone 3+years (NON-MEDICARE ) .5 cc Right Deltoid Daphney Arreguin [id number] 48127 08914560 62995 141 Fluvirin--Inf luenza vaccine 3+ year 0.5 cc Left Deltoid damondominik 06124 4367 32203129 34261 128 H1N1 Vaccine Left Deltoid Sheri Bedolla YEAST TENDER [id number] 6220 [phone] 69509 303 Arexvy Left Deltoid [facility] R 76884 [phone] 23708 158 Influenza-Flu zone 3+years (NON-MEDICARE ) .5 cc Left Deltoid Amber Bagley [id number] 25567 00195653 95739 52 Hep A Adult 2 Dose 1 mL Left Deltoid Christ Bedolla [id number] 07836 [phone] 81774 115 Adacel (Tdap) 0.5 cc Right Deltoid lw [id number] 4839 08653943 54365 185 Flublok 0.5 mL Left Deltoid William Esquivel AMLK193 7 96417 10730979 94137 115 Boostrix .5 mL Right Deltoid [place] R 9L475 31087 81384642 92654 141 Fluvirin--Inf luenza vaccine 3+ year 0.5cc Left Deltoid lw [id number] 9945 24345641 75992 141 Fluvirin--Inf luenza vaccine 3+ year 0.5cc Left Deltoid Hung Patton [id number] 51575 81531543 37824 150 FLUZONE 6MO - OLDER 0.5 mL Right Deltoid Malik, Juany L 49D72 63523 [phone] 96253 135 Fluzone High Dose 0.5 mL Right Deltoid [facility] [id number] 79649 [phone] 81215 216 Prevnar PCV-20 (Pneumococcal conjugate 20) 0.5 mL Right Deltoid [place] LM3739 87370 [phone] 77779 52 Hep A Adult 2 Dose 1 mL Left Deltoid Malik, Juany L [id number] 86098 20151128 Kenalog 1 mL right gluteus William Esquivel5055 01811 68768743 45250 150 FLUZONE 6MO - OLDER 0.5 mL Right Deltoid Malik, Juany L 49D72 26442 17241309 76080 115 Adacel (Tdap) 0.5 cc Right Deltoid lw [id number] 4839 48445600 44541 158 Influenza-Flu zone 3+years (NON-MEDICARE ) .5 cc Right Deltoid Daphney Arreguin [id number] 25647 49675614 21040 216 Prevnar PCV-20 (Pneumococcal conjugate 20) 0.[address] [facility] EK8954 59880 50484005 98733 141 Fluvirin--Inf luenza vaccine 3+ year 0.5 cc Left Deltoid Phoebe Ceja [id number] 7640 53618904 45010 141 Fluvirin--Inf luenza vaccine 3+ year 0.5 cc Right Deltoid a.coy [id number] 2338 25126697 30479 141 Fluvirin--Inf luenza vaccine 3+ year 0.5 cc Left Deltoid a.coy 10810 4367 43090724 Kenalog 1 mL right gluteus William Esquivel5055 24348 85771882 17913 141 Fluvirin--Inf luenza vaccine 3+ year 0.5 cc Left Deltoid Yuridia PattonReuben [id number] 64957 72176336 66273 141 Fluvirin--Inf luenza vaccine 3+ year 0.5cc Left Deltoid lw [id number] 9945 55348350 15544 158 Influenza-Flu zone 3+years (NON-MEDICARE ) .5 cc Left Deltoid Amber Bagley [id number] 04859 64919564 29944 52 Hep A Adult 2 Dose 1 mL Left Deltoid Juany Malik [id number] 88396 85684689 12978 141 Fluvirin--Inf luenza vaccine 3+ year 0.5cc Left Deltoid Yuridia PattonJulietsavita OJ378SH 61190 28114309 33122 128 H1N1 Vaccine Left Deltoid Sheri Bedolla YEAST TENDER [id number] 6220 18645770 07306 115 Boostrix .5 mL Right Deltoid Dameon Jimmie R 9L475 38343 88965926 02711 185 Flublok 0.5 mL Left Deltoid William Esquivel OGTC245 7 37386 16639764 66328 303 Arexvy Left Deltoid Dameon Jimmie R 71351 84977431 03596 52 Hep A Adult 2 Dose 1 mL Left Deltoid Chioma,Christ payne [place] U806144 34763 97228372 49862 135 Fluzone High Dose 0.5 mL Right Deltoid Dameon Jimmie R [id number] 13793 43256770 79238 141 Fluvirin--Inf luenza vaccine 3+ year 0.5 cc Left Deltoid Dana Patton [id number] 5578 68819561 83328 135 Fluzone High Dose 0.7 mL Left Deltoid Amber Bedolla [id number] 10542 Problems Icd10 code Snomed code Description Diagnosed date Severity Clinician D50.9 24353078 Iron deficiency anemia, unspecified iron deficiency anemia type 18336342 2 Nory Whalen M70.51 [id number] Suprapatellar bursitis of right knee 20170818 0 Amber Bedolla M51.36 00281858 Lumbar degenerat alyson disc disease 03457547 2 Amber Bedolla Z68.31 214789932 BMI 31.0-31.9,adult 27505850 2 Amber Bedolla R13.10 66745879 Esophageal dysphagia 42177050 2 Amber Bedolla N28.1 799283934 Renal cyst 78072209 0 Amber Bedolla Z68.33 727151000 BMI 33.0-33.9,adult 72141575 2 Amber Bedolla Z96.642 948970009 Status post left hip replacement 38592162 2 Amber Bedolla M54.42 201143112 Acute left-sided low back pain with left-sided sciatica 14173498 2 Sabrina Bello G89.29 11897257 Other chronic pain 21403692 2 Amber Aguilera M54.41 713756344 Lumbago with sciatica, right side 49858337 2 Amber Bedolla N32.81 111440455 OAB (overactive bladder) 93212309 2 Amber Bedolla M70.52 [id number] Suprapatellar bursitis of left knee 25932338 0 Amber Bedolla F39 98430858 Mood disorder 52601645 2 Amber Benton Z09 297909201 Postoperative examination 87860445 0 Analy Charles Garrett M16.12 [id number] Primary osteoarthritis of left hip 24264910 2 Amber Bedolla M25.50 80328651 Arthralgia of multiple sites 34052574 0 Amber Bedolla M05.79 095995855 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 04658006 2 Amber Bedolla K21.9 871200552 Gastroesophageal reflux disease, esophagitis presence not specified 16456283 2 Sarath Beckfordhen Garrett Z68.29 54211569 BMI 29.0-29.9,adult 41931575 0 Amber Bedolla R29.6 906317346 Frequent falls 07860717 2 Amber Loco M17.0 627571566 Primary osteoarthritis of both knees 92437422 2 BrandtCharles rios Garrett R26.2 779422521 Difficulty walking 93030283 2 F Amber winchester L Encounters Encounter type Encounter date Encounter time Location Clinician Member subscriber id Insurance type ePrescription [id number] [facility] Amber Lozadaence [id number] MB TEL [id number] [facility] Amber Lozadaence [id number] MB TEL [id number] 853165 [facility] Amber Lozadaence [id number] MB JOSEPH PHYS [id number] 503975 [facility] [place] Amber Lozadaence [id number] MB TEL 99800526 142478 [facility] Amber Lozadaence [id number] MB ePrescription 96759276 060943 [facility] Amber Lozadaence [id number] MB TEL 44914889 339640 [facility] Amber Lozadaence [id number] MB TEL 82961445 962430 [facility] Amber Lozadaence [id number] MB TEL 18039747 868783 [facility] Amber Lozadaence [id number] MB JOSEPH PHYS [id number] 969709 [facility] [place] Amber Lozadaence [id number] MB ePrescription 59960549 936212 [facility] Amber Lozadaence [id number] MB TEL 85000205 069150 [facility] Amber Lozadaence [id number] MB TEL 63345548 796909 [facility] Amber Lozadaence [id number] MB TEL 46432714 977746 [facility] Amber Lozadaence [id number] MB TEL 46743041 015271 [facility] Amber Lozadaence [id number] MB ePrescription 79034523 229352 [facility] Amber Lozadaence [id number] MB TEL 70087150 380076 [facility] Charles Carltonson [id number] MB TEL 65427198 937601 [facility] Amber Lozadaence [id number] MB ePrescription 31649279 832158 [facility] Amber Lozadaence [id number] MB TEL 22374438 059243 [facility] Amber Chioma [id number] MB TEL 63893193 262908 [facility] Amber Lozadaence [id number] MB TEL 47695905 509489 [facility] Amber Chioma [id number] MB TEL 05016838 942890 [facility] Amber Chioma [id number] MB TEL [id number] 586930 [facility] Amber Chioma [id number] MB TEL 80694532 353999 [facility] Amber Chioma [id number] MB ePrescription 19924542 924227 [facility] Amber Lozadaence [id number] MB TEL [id number] 512037 [facility] [place] Amber Chioma [id number] MB TEL 21904872 861139 [facility] Amber Lozadaence [id number] MB TEL 52092399 738129 [facility] Amber Lozadaence [id number] MB TEL 41776094 102076 [facility] Amber Lozadaence [id number] MB TEL 58465442 479757 [facility] Charles Beckford [id number] MB ePrescription 18101258 695773 [facility] Amber Lozadaence [id number] MB ePrescription 24635938 687210 [facility] Amber Lozadaence [id number] MB TEL 53587733 443340 [facility] Amber Lozadaence [id number] MB TEL 32228588 759244 [facility] Amber Chioma [id number] MB TEL 19577805 149271 [facility] Amber Lozadaence [id number] MB URG 57444209 772425 [facility] Amber Lozadaence [id number] MB LAB 48295965 614577 [facility] Amber Chioma [id number] MB TEL 23270599 872930 [facility] Amber Chioma [id number] MB ePrescription 76502272 762491 [facility] Amber Chioma [id number] MB TEL [id number] 043074 [facility] Amber Chioma [id number] MB TEL 50122129 706477 [facility] Amber Chioma [id number] MB TEL 22466143 711663 [facility] Amber Chioma [id number] MB TEL 78000814 323390 [facility] Amber Chioma [id number] MB TEL 04774299 443586 [facility] Amber Chioma [id number] MB URG 76317100 634716 [facility] Amber Chioma [id number] MB ePrescription 82332520 855123 [facility] Amber Chioma [id number] MB TEL 95296282 313542 [facility] Amber Chioma [id number] MB TEL 06075218 961344 [facility] Amber Chioma [id number] MB TEL 45527516 328738 [facility] Amber Chioma [id number] MB TEL 04819084 309153 [facility] Amber Chioma [id number] MB TEL 56554533 244231 [facility] Amber Chioma [id number] MB TEL 07142172 544327 [facility] Amber Chioma [id number] MB TEL 04116193 733752 [facility] Amber Chioma [id number] MB TEL 14166428 578783 [facility] Charles Beckford [id number] MB TEL 31053663 253242 [facility] Amber Chioma [id number] MB JOSEPH PHYS 06069267 141647 [facility] Amber Chioma [id number] MB TEL 92538037 948489 [facility] Amber Chioma [id number] MB TEL 04088191 279283 [facility] Amber Chioma [id number] MB TEL 74003152 276342 [facility] Amber Chioma [id number] MB TEL 81627658 330288 [facility] Amber Chioma [id number] MB LAB 03300460 666299 [facility] Amber Chioma [id number] MB TEL 36428432 019419 [facility] Amber Chioma [id number] MB TEL 07382601 956715 [facility] Amber Chioma [id number] MB ePrescription 43251190 102772 [facility] Amber Chioma [id number] MB TEL [id number] 490635 [facility] Amber Chioma [id number] MB URG 70602633 697580 [facility] Amber Chioma [id number] MB TEL 66407168 360855 [facility] Amebr Lozadaence [id number] MB TEL 69946344 587875 [facility] Amber Lozadaence [id number] MB TEL 89888458 917498 [facility] Amber Lozadaence [id number] MB TEL 06065485 680410 [facility] Amber Lozadaence [id number] MB TEL 36015994 022805 [facility] Amber Lozadaence [id number] MB TEL 76379050 144277 [facility] Charles Beckford [id number] MB ePrescription 52158216 907342 [facility] Amber Lozadaence [id number] MB ePrescription 68100738 271612 [facility] Amber Lozadaence [id number] MB ePrescription 69984404 892025 [facility] Amber Loazdaence [id number] MB TEL [id number] 783481 [facility] Amber Chioma [id number] MB ePrescription 55522538 922003 [facility] Amber Lozadaence [id number] MB TEL 11835124 476609 [facility] Amber Lozadaence [id number] MB JOSEPH PHYS 50445583 478771 [facility] Amber Chioma [id number] MB ePrescription 86060360 032612 [facility] Amber Lozadaence [id number] MB URG 94638227 454532 [facility] Amber Lozadaence [id number] MB TEL 84069903 086696 [facility] Amber Chioma [id number] MB TEL [id number] 502615 [facility] Amber Chioma [id number] MB TEL 46334017 219250 [facility] Amber Chioma [id number] MB TEL 44031650 433446 [facility] Amber Chioma [id number] MB TEL [id number] 232391 [facility] Amber Chioma [id number] MB TEL 70101000 467903 [facility] Amber Chioma [id number] MB TEL [id number] 418429 [facility] Amber Chioma [id number] MB TEL 51581877 713275 [facility] Amber Chioma [id number] MB ePrescription 84321820 279565 [facility] Amber Chioma [id number] MB ePrescription 38429901 073821 [facility] Amber Chioma [id number] MB TEL [id number] 438168 [facility] Amber Chioma [id number] MB Medications Id ndc Id other Name Dose Form Sig Duration Frequency Start date Quantity Refill Prescribed npi 29381 15966 0 75332 ibupro fen 600 mg table t 1 tab( s) oral ly 3 time s a day as need ed for pain 90 days 3 times a day as needed for pain 270 1 1828961501 91663 12280 0 41812 omepra zole 20 mg delay ed relea se capsu le 1 cap( s) oral ly once a day 90 days once a day 90 3 5695096389 47741 05538 6 14775 LaMICt al 150MG table t 1 tab( s) oral ly 2 time s a day 90 days 2 times a day 180 Tablet 2 1736240449 67124 14369 1 350864 Voltar en Topica l 1% gel 2 g appl ied topi call y 4 time s a day 90 days 4 times a day 3 5 9019462816 38556 69338 0 167975 Vitami n B12 2500 mcg table t 1 tab( s) subl ingu ally once a day 30 day(s) once a day 30 3436483496 70174 98472 0 122157 Doxycy alexander Hyclat e hyclat e 100 mg capsu le 1 cap( s) oral ly 2 time s a day 2 times a day 392151 25 7188025554 30867 41256 9 12996 cyclob enzapr ine 10MG table t 1 tab( s) oral ly once a day PRN once a day PRN 7593941617 73688 95599 5 84771 amoxic illin 500 mg capsu le 1 cap( s) oral ly 3 time s a day 10 day(s) 3 times a day 674759 21 30 7970788266 35187 72489 1 718493 Nitrof uranto in Macroc rystal s macroc rystal s 50 mg capsu le 1 cap( s) oral ly once a day 90 days once a day 90 Capsule 4 7098066388 47404 29372 5 67930 hydrox ychlor oquine 200 mg table t 1 tab( s) oral ly 2 time s a day 90 days 2 times a day 285671 02 180 Tablet 1 8139272168 28086 86875 6 78032 LaMICt al 150MG table t 1 tab( s) oral ly 2 time s a day 90 days 2 times a day 180 Tablet 2 3969310175 86511 26812 0 32305 Valtre x 1 g table t 1 tab( s) oral ly once a day 90 days once a day 396809 08 90 Tablet 0 8291447659 22869 08813 0 699511 Vitami n B12 2500 mcg table t 1 tab( s) subl ingu ally once a day 30 day(s) once a day 30 9072756774 70163 06374 4 321752 Diclof enac Sodium Topica l 1% gel 2 gram s appl ied topi call y 4 time s a day 90 days 4 times a day 605372 06 400 gram 0 5070754507 98782 19990 4 31259 baclof en 10 mg table t 1 tab( s) oral ly 3 time s a day as need ed for musc le spas m 90 days 3 times a day as needed for muscle spasm 403791 06 270 0 5604415629 55030 88969 3 581287 DULoxe humaira Hydroc hlorid e 60 mg delay ed relea se capsu le 1 cap( s) oral ly once a day 90 days once a day 485050 12 90 Capsule 5 3667083964 28489 64329 6 202697 DULoxe humaira 20 mg delay ed relea se capsu le 1 cap( s) oral ly 2 time s a day 2 times a day 7321582372 49386 08756 1 968827 Voltar en Topica l 1% gel 2 g appl ied topi call y 4 time s a day 4 times a day 0462004327 40864 99982 1 756331 Nitrof uranto in Macroc rystal s macroc rystal s 50 mg capsu le 1 cap( s) oral ly once a day 90 days once a day 90 Capsule 1 8256703981 38964 99285 6 43980 cefdin ir 300 mg capsu le 1 cap( s) oral ly ever y 12 hour s 7 days every 12 hours 780888 12 14 Capsule 0 2427918342 71183 29154 0 433811 Vitami n B12 2500 mcg table t 1 tab( s) subl ingu ally once a day 30 day(s) once a day 30 4283812105 80806 38929 0 10891 nystat in topica l 578324 units/ g powde r 1 savanna appl ied topi call y 3 time s a day 7 days 3 times a day 319123 06 1 5 0022768457 49827 36341 4 87104 baclof en 10 mg table t 1 tab( s) oral ly 3 time s a day as need ed for musc le spas m 90 days 3 times a day as needed for muscle spasm 867445 06 270 0 9346708092 57132 70739 6 25043 cefdin ir 300 mg capsu le 1 cap( s) oral ly ever y 12 hour s 10 days every 12 hours 223833 26 20 0 2961430601 79412 14634 9 52647 cyclob enzapr ine 10MG table t 1 tab( s) oral ly once a day PRN 90 once a day PRN 90 0 1150861303 40827 78134 0 31827 predni SONE 20 mg table t 1 tab( s) oral ly once a day as dire cted 30 days once a day as directed 543319 09 30 0 6686135454 89003 00604 6 66042 ZyrTEC 10 mg table t 1 tab( s) oral ly once a day prn once a day prn 7150390047 29364 18679 1 599556 Nitrof uranto in Macroc rystal s macroc rystal s 50 mg capsu le 1 cap( s) oral ly once a day once a day 8741888606 02574 31033 0 59143 traZOD one 150 mg table t 150 mg oral ly once a day for slee p 90 days once a day for sleep 20210308 28 90 6 9357842012 20098 58319 6 53512 LaMICt al 150MG table t 1 tab( s) oral ly 2 time s a day 90 days 2 times a day 180 Tablet 2 7132979408 63208 61280 0 68637 Valtre x 1 g table t 1 tab( s) oral ly once a day 90 days once a day 802016 08 90 Tablet 4 2563645284 15526 18127 1 08521 nitrof uranto in macroc rystal s 50 mg capsu le 1 cap( s) oral ly once a day at [place] once a day at bedtime 9873031983 57683 59248 6 52411 LaMICt al 150MG table t 1 tab( s) oral ly 2 time s a day 90 days 2 times a day 180 Tablet 2 6266191243 22537 48492 0 009711 Doxycy alexander Hyclat e hyclat e 100 mg capsu le 1 cap( s) oral ly 2 time s a day 7 days 2 times a day 040276 25 14 Capsule 0 7030076951 95586 24262 1 14440 Mobic 15 mg table t 1 tab( s) oral ly once a day 90 days once a day 90 3 2671422388 19020 45387 1 851038 Voltar en Topica l 1% gel 2 g appl ied topi call y 4 time s a day 90 days 4 times a day 3 8 6985693464 41714 97590 1 92584 Mobic 15 mg table t 1 tab( s) oral ly once a day 90 days once a day 90 3 5048185128 29061 58447 6 41990 LaMICt al 150MG table t 1 tab( s) oral ly 2 time s a day 90 days 2 times a day 180 Tablet 2 3394903753 60916 40406 0 745075 Symbic ort 160 mcg-4. 5 mcg/in h aeros ol 2 puff (s) inha led 2 time s a day 2 times a day 917874 13 3172512519 90057 55300 0 75891 Valtre x 1 g table t 1 tab( s) oral ly once a day 90 days once a day 948946 08 90 Tablet 8 2837787657 84631 42460 2 67709 EPINEP Hrine 0.3 mg kit 0.3 mg intr amus cula rly once 1 dose(s) once 31 1 8 3744925709 21091 84187 1 45836 Mobic 15 mg table t 1 tab( s) oral ly once a day once a day 9233518544 49375 43986 6 50231 LaMICt al 150MG table t 1 tab( s) oral ly 2 time s a day 90 days 2 times a day 180 Tablet 3 1318700609 93856 28354 1 77030 oxyBUT Ynin 10 mg/24 hr table t, exten ded relea se 1 tab( s) oral ly once a day once a day 6649334219 44297 44235 6 88926 cefdin ir 300 mg capsu le 1 cap( s) oral ly ever y 12 hour s 7 days every 12 hours 916169 12 14 Capsule 0 8697714676 89172 60961 6 025990 DULoxe humaira 20 mg delay ed relea se capsu le 1 cap( s) oral ly 2 time s a day 2 times a day 3244407017 02464 49550 0 42526 ciprof loxaci n 500 mg table t 1 tab( s) oral ly ever y 12 hour s 10 day(s) every 12 hours 519551 09 20 0 3569671726 15026 45554 6 90072 ZyrTEC 10 mg table t 1 tab( s) oral ly once a day prn once a day prn 8156908877 72726 51664 1 919938 Nitrof uranto in Macroc rystal s macroc rystal s 50 mg capsu le 1 cap( s) oral ly once a day 90 days once a day 90 Capsule 0 7173463190 69659 73058 0 55057 omepra zole 20 mg delay ed relea se capsu le 1 cap( s) oral ly once a day 90 days once a day 90 3 0565538230 12120 9 89342 Difluc an 150 mg table t 1 tab( s) oral ly once and repe at in 3 days 3 days once and repeat in 3 days 753052 21 2 7 2609973865 74527 99741 2 17217 EPINEP Hrine 0.3 mg kit 0.3 mg intr amus cula rly once 1 dose(s) once 31 1 1 2178671614 54376 86314 2 56806 EPINEP Hrine 0.3 mg kit 0.3 mg intr amus cula rly once 1 dose(s) once 31 1 2 8622781059 90516 43441 3 626748 Estrad iol Vagina l 0.1 mg/g cream as dire cted intr avag inal ly 2 time s per week 30 days 2 times per week 845008 23 1 2 7985034860 25068 64066 6 78349 LaMICt al 150MG table t 1 tab( s) oral ly 2 time s a day 90 days 2 times a day 180 Tablet 2 9309429762 72345 58287 5 32927 hydrox ychlor oquine 200 mg table t 1 tab( s) oral ly 2 time s a day 90 days 2 times a day 442129 02 180 Tablet 1 1183634934 50883 58858 4 053701 Diclof enac Sodium Topica l 1% gel 2 gram s appl ied topi call y 4 time s a day 90 days 4 times a day 804762 06 400 gram 7 8047332193 95178 94503 6 83634 LaMICt al 150MG table t 1 tab( s) oral ly 2 time s a day 90 days 2 times a day 180 Tablet 2 9351505254 35432 92758 5 69518 hydrox ychlor oquine 200 mg table t 1 tab( s) oral ly 2 time s a day 90 days 2 times a day 475682 02 180 Tablet 6 5419223404 68939 14235 0 66530 ciprof loxaci n 500 mg table t 1 tab( s) oral ly ever y 12 hour s every 12 hours 016354 09 2515055007 51874 59085 0 58174 omepra zole 20 mg delay ed relea se capsu le 1 cap( s) oral ly once a day 90 days once a day 90 3 2937812089 18877 07110 1 32965 Mobic 15 mg table t 1 tab( s) oral ly once a day 90 days once a day 90 2 1618490343 69218 79927 0 474368 Symbic ort 160 mcg-4. 5 mcg/in h aeros ol 2 puff (s) inha led 2 time s a day 30 days 2 times a day 757987 13 1 7 6092825893 83723 25358 0 93219 omepra zole 20 mg delay ed relea se capsu le 1 cap( s) oral ly once a day 90 days once a day 90 3 9356474965 43982 32392 0 47147 nystat in topica l 584188 units/ g powde r 1 savanna appl ied topi call y 3 time s a day 3 times a day 875324 06 0172305356 09042 14936 4 47917 baclof en 10 mg table t 1 tab( s) oral ly 3 time s a day as need ed for musc le spas m 90 days 3 times a day as needed for muscle spasm 936262 06 270 0 7705402316 07303 82435 0 90866 omepra zole 20 mg delay ed relea se capsu le 1 cap( s) oral ly once a day 90 days once a day 90 3 7307272535 87743 67822 4 461164 Diclof enac Sodium Topica l 1% gel 2 gram s appl ied topi call y 4 time s a day 90 days 4 times a day 802452 06 400 gram 4 9072764301 17418 86494 9 36291 cyclob enzapr ine 10MG table t 1 tab( s) oral ly once a day PRN 90 once a day PRN 90 0 4005456769 44076 36952 5 50480 amoxic illin 500 mg capsu le 1 cap( s) oral ly 3 time s a day 10 day(s) 3 times a day 829713 21 30 7200722724 88384 65691 0 670288 Symbic ort 160 mcg-4. 5 mcg/in h aeros ol 2 puff (s) inha led 2 time s a day 30 days 2 times a day 116203 13 1 3 [id number] 24039 29191 6 98819 LaMICt al 150MG table t 1 tab( s) oral ly 2 time s a day 90 days 2 times a day 180 Tablet 2 [id number] 28926 36278 0 93511 traZOD one 150 mg table t 150 mg oral ly once a day for slee p 90 days once a day for sleep 20210308 28 90 5 [id number] 84380 28283 8 82955 flucon azole 150 mg table t 1 tab( s) oral ly once and repe at if need ed 3 days once and repeat if needed 562329 21 2 0 [id number] 73670 06169 4 283694 Diclof enac Sodium Topica l 1% gel 2 gram s appl ied topi call y 4 time s a day 90 days 4 times a day 343814 06 400 gram 6 [id number] 25362 13517 1 454698 Nitrof uranto in Macroc rystal s macroc rystal s 50 mg capsu le 1 cap( s) oral ly once a day 90 days once a day 90 Capsule 3 [id number] 92906 13679 1 738734 Voltar en Topica l 1% gel 2 g appl ied topi call y 4 time s a day 90 days 4 times a day 842896 16 3 0 7394750138 23697 66549 9 02593 Difluc an 150 mg table t 1 tab( s) oral ly once and repe at in 3 days once and repeat in 3 days 794521 21 4169172160 92543 32047 0 76557 ibupro fen 600 mg table t 1 tab( s) oral ly 3 time s a day as need ed for pain 90 days 3 times a day as needed for pain 270 4 6698889021 79050 84027 0 970738 Gemtes a 75 mg table t 1 tab( s) oral ly once a day 90 days once a day 210739 12 90 Tablet 4 8719921432 07826 25640 1 651904 Voltar en Topica l 1% gel 2 g appl ied topi call y 4 time s a day 90 days 4 times a day 976836 16 3 0 7200615977 61058 40043 3 180264 Estrad iol Vagina l 0.1 mg/g cream as dire cted intr avag inal ly 2 time s per week 30 days 2 times per week 211464 23 1 2 1121261166 99049 56447 1 58229 Mobic 15 mg table t 1 tab( s) oral ly once a day 90 days once a day 90 2 6729874383 03264 55642 8 21133 flucon azole 150 mg table t 1 tab( s) oral ly once and repe at in 3 days once and repeat in 3 days 541843 18 6887579831 70801 45751 0 32191 predni SONE 20 mg table t 1 tab( s) oral ly once a day as dire cted 30 days once a day as directed 902597 09 30 0 7238618922 39112 95926 8 96886 flucon azole 150 mg table t 1 tab( s) oral ly once and repe at in 3 days 3 days once and repeat in 3 days 596316 18 2 0 7905080678 37373 48350 3 056748 DULoxe humaira Hydroc hlorid e 60 mg delay ed relea se capsu le 1 cap( s) oral ly once a day 90 days once a day 237088 12 90 Capsule 2 9164964458 28751 99188 3 346968 Estrad iol Vagina l 0.1 mg/g cream as dire cted intr avag inal ly 2 time s per week 30 days 2 times per week 268284 23 1 2 6940739723 02835 65756 1 74388 gabape ntin 300 mg capsu le 1 cap( s) oral ly 1 tab in morn ing and 2 tabs at bedt esau 1 tab in morning and 2 tabs at bedtime 4758009931 78809 14092 1 178673 Nitrof uranto in Macroc rystal s macroc rystal s 50 mg capsu le 1 cap( s) oral ly once a day 90 days once a day 973243 26 90 Capsule 0 3912860578 52446 30658 6 60592 cefdin ir 300 mg capsu le 1 cap( s) oral ly ever y 12 hour s every 12 hours 757317 26 5634025324 86827 06317 0 28633 omepra zole 20 mg delay ed relea se capsu le 1 cap( s) oral ly once a day 90 days once a day 90 3 7469634884 76211 24902 4 915403 Diclof enac Sodium Topica l 1% gel 2 gram s appl ied topi call y 4 time s a day 90 days 4 times a day 126972 06 400 gram 0 9098752067 27746 64571 3 212143 Ozempi c 2 mg/3 mL (0.25 mg or 0.5 mg dose) solut ion as dire cted subc utan eous ly once a week once a week 4101093582 68547 40627 1 13353 Mobic 15 mg table t 1 tab( s) oral ly once a day 90 days once a day 90 2 5497025057 31389 25739 5 63229 hydrox ychlor oquine 200 mg table t 1 tab( s) oral ly 2 time s a day 90 days 2 times a day 202244 02 180 Tablet 9 4837194659 31008 60410 0 32311 ibupro fen 600 mg table t 1 tab( s) oral ly ever y 6 hour s every 6 hours 7831653383 80502 02092 6 76613 ZyrTEC 10 mg table t 1 tab( s) oral ly once a day prn once a day prn 1459721112 41510 69028 8 14518 flucon azole 150 mg table t 1 tab( s) oral ly once and repe at if need ed 3 days once and repeat if needed 213848 21 2 0 6826656451 26154 76083 1 982708 Nitrof uranto in Macroc rystal s macroc rystal s 50 mg capsu le 90 days once a day 096346 26 90 Capsule 0 6165305119 81124 82497 3 628380 Ozempi c 2 mg/3 mL (0.25 mg or 0.5 mg dose) solut ion once a week 6959739330 47827 27813 1 71143 Mobic 15 mg table t 90 days once a day 90 2 995287106 9 65175 23857 6 66971 ZyrTEC 10 mg table t once a day prn 8505720136 39845 56328 8 31667 flucon azole 150 mg table t 3 days once and repeat if needed 341444 21 2 0 7367142191 51573 59693 0 19273 ibupro fen 600 mg table t every 6 hours 5789981604 99455 18873 1 286734 Nitrof uranto in Macroc rystal s macroc rystal s 50 mg capsu le 90 days once a day 90 Capsule 0 0626914975 06937 95374 1 39326 oxyBUT Ynin 10 mg/24 hr table t, exten ded relea se once a day 278433955 9 91522 17842 1 00696 Mobic 15 mg table t 90 days once a day 90 3 137445757 9 76673 10016 3 247093 Estrad iol Vagina l 0.1 mg/g cream 30 days 2 times per week 650839 23 1 2 0474839004 25347 64901 4 401764 Diclof enac Sodium Topica l 1% gel 90 days 4 times a day 092277 06 400 gram 0 5754046537 57152 67593 4 217463 Diclof enac Sodium Topica l 1% gel 90 days 4 times a day 632456 06 400 gram 7 1694276633 52241 92664 0 14964 omepra zole 20 mg delay ed relea se capsu le 90 days once a day 90 3 280413467 9 10910 32540 0 29311 omepra zole 20 mg delay ed relea se capsu le 90 days once a day 90 3 297385248 9 29022 07760 6 95457 LaMICt al 150MG table t 90 days 2 times a day 180 Tablet 2 7355328177 83779 76155 0 94476 traZOD one 150 mg table t 90 days once a day for sleep 20210308 28 90 6 5380305661 52945 31885 5 42848 amoxic illin 500 mg capsu le 10 day(s) 3 times a day 217060 21 30 8939033811 33273 85746 3 348437 Estrad iol Vagina l 0.1 mg/g cream 30 days 2 times per week 294942 23 1 2 5875722957 73713 52383 2 26637 EPINEP Hrine 0.3 mg kit 1 dose(s) once 762368 31 1 7 7436158059 90595 79545 4 227329 Diclof enac Sodium Topica l 1% gel 90 days 4 times a day 905658 06 400 gram 1 2600371536 57678 32245 6 97567 cefdin ir 300 mg capsu le every 12 hours 205534 26 9927884463 18142 71160 0 23239 omepra zole 20 mg delay ed relea se capsu le 90 days once a day 90 3 126103923 9 84382 34465 1 20511 gabape ntin 300 mg capsu le 1 tab in morning and 2 tabs at bedtime 5590741956 51823 52283 6 64585 LaMICt al 150MG table t 90 days 2 times a day 180 Tablet 2 7709884087 84850 38898 9 25382 cyclob enzapr ine 10MG table t 90 once a day PRN 90 0 7783629490 39058 48767 6 79565 LaMICt al 150MG table t 90 days 2 times a day 180 Tablet 2 0005574377 23987 06258 0 196160 Gemtes a 75 mg table t 90 days once a day 867459 12 90 Tablet 6 5019263211 19508 34402 3 542109 Estrad iol Vagina l 0.1 mg/g cream 30 days 2 times per week 456708 23 1 2 1162535204 45725 84837 0 53047 omepra zole 20 mg delay ed relea se capsu le 90 days once a day 90 3 562813168 9 33949 53541 0 76834 predni SONE 20 mg table t 30 days once a day as directed 564194 09 30 0 9181211174 38371 33237 4 35333 baclof en 10 mg table t 90 days 3 times a day as needed for muscle spasm 070982 06 270 0 8581307629 68816 06442 5 35252 hydrox ychlor oquine 200 mg table t 90 days 2 times a day 260725 02 180 Tablet 0 4329770466 20568 11012 6 11861 LaMICt al 150MG table t 90 days 2 times a day 180 Tablet 2 0556317011 45926 50596 0 65190 predni SONE 20 mg table t 30 days once a day as directed 792848 09 30 0 4964882460 33432 75759 1 377751 Nitrof uranto in Macroc rystal s macroc rystal s 50 mg capsu le 90 days once a day 90 Capsule 6 7394118010 61796 53003 1 547660 Nitrof uranto in Macroc rystal s macroc rystal s 50 mg capsu le once a day 693505373 9 81706 08504 3 009327 DULoxe humaira Hydroc hlorid e 60 mg delay ed relea se capsu le 90 days once a day 702567 12 90 Capsule 8 7601643883 65940 34836 4 523167 Diclof enac Sodium Topica l 1% gel 90 days 4 times a day 917548 06 400 gram 9 4517486387 09415 16636 0 18578 omepra zole 20 mg delay ed relea se capsu le 90 days once a day 90 3 246522671 9 44915 56903 6 80205 LaMICt al 150MG table t 90 days 2 times a day 180 Tablet 2 5227512433 53095 10778 0 14272 nystat in topica l 532792 units/ g powde r 7 days 3 times a day 165032 06 1 6 0458374925 85863 30621 0 04679 traZOD one 150 mg table t 90 days once a day for sleep 030051 28 90 8 6815377404 15048 51927 4 22458 baclof en 10 mg table t 90 days 3 times a day as needed for muscle spasm 721876 06 270 0 4590126559 82879 16963 1 66552 Mobic 15 mg table t 90 days once a day 90 2 519730026 9 53224 02478 1 765064 Voltar en Topica l 1% gel 90 days 4 times a day 854913 16 3 5 0265899856 17078 36234 0 43728 nystat in topica l 879250 units/ g powde r 3 times a day 478142 06 1108699448 11114 85090 8 91608 flucon azole 150 mg table t once and repeat in 3 days 712424 18 4954426626 42103 69861 8 92744 flucon azole 150 mg table t 3 days once and repeat if needed 014370 21 2 0 0043364591 90634 21269 0 55973 ciprof loxaci n 500 mg table t every 12 hours 662821 09 4829049799 42305 57276 5 45408 hydrox ychlor oquine 200 mg table t 90 days 2 times a day 533819 02 180 Tablet 4 2475192284 96063 08411 3 952359 DULoxe humaira Hydroc hlorid e 60 mg delay ed relea se capsu le 90 days once a day 440856 12 90 Capsule 1 8369797830 61595 78773 4 289764 Diclof enac Sodium Topica l 1% gel 90 days 4 times a day 356859 06 400 gram 0 5530871423 57813 52711 6 31730 cefdin ir 300 mg capsu le 10 days every 12 hours 323773 26 20 0 2466062584 60715 60024 1 386076 Voltar en Topica l 1% gel 90 days 4 times a day 3 7 8367027925 37578 08285 5 91289 amoxic illin 500 mg capsu le 10 day(s) 3 times a day 323829 21 30 7711064136 47591 69813 9 04449 cyclob enzapr ine 10MG table t 90 once a day PRN 90 0 7275426991 40482 64777 9 44264 cyclob enzapr ine 10MG table t once a day PRN 8274170446 67143 27998 6 22572 LaMICt al 150MG table t 90 days 2 times a day 180 Tablet 2 9148186134 70725 21170 1 635382 Voltar en Topica l 1% gel 4 times a day 8264373333 35238 19902 4 73411 baclof en 10 mg table t 90 days 3 times a day as needed for muscle spasm 555145 06 270 0 3337642814 05286 78484 5 72438 hydrox ychlor oquine 200 mg table t 90 days 2 times a day 357647 02 180 Tablet 6 2366448171 32639 32223 1 554399 Nitrof uranto in Macroc rystal s macroc rystal s 50 mg capsu le 90 days once a day 90 Capsule 7 2759206092 90184 38577 6 066317 DULoxe humaira 20 mg delay ed relea se capsu le 2 times a day 8763122757 80920 78588 0 190859 Vitami n B12 2500 mcg table t 30 day(s) once a day 30 171504498 9 36623 32780 5 44004 hydrox ychlor oquine 200 mg table t 90 days 2 times a day 772270 02 180 Tablet 9 6480504092 27355 31503 1 43843 Mobic 15 mg table t 90 days once a day 90 2 521002284 9 04583 06921 1 492444 Voltar en Topica l 1% gel 90 days 4 times a day 962429 16 3 4 6977425458 38977 91943 8 14305 flucon azole 150 mg table t 3 days once and repeat in 3 days 542422 18 2 0 6871434435 88003 83093 1 357420 Nitrof uranto in Macroc rystal s macroc rystal s 50 mg capsu le 90 days once a day 90 Capsule 4 8104993012 93679 04719 0 822306 Symbic ort 160 mcg-4. 5 mcg/in h aeros ol 30 days 2 times a day 371358 13 1 5 7867233868 42659 99978 6 30021 LaMICt al 150MG table t 90 days 2 times a day 180 Tablet 2 8189855063 67830 38642 0 22871 ibupro fen 600 mg table t 90 days 3 times a day as needed for pain 270 5 6250457003 48679 77535 0 990251 Doxycy alexander Hyclat e hyclat e 100 mg capsu le 2 times a day 616934 25 7429634353 87569 28160 0 40680 Valtre x 1 g table t 90 days once a day 237530 08 90 Tablet 6 7097367166 80038 30460 0 43584 ibupro fen 600 mg table t 90 days 3 times a day as needed for pain 270 4 1185077545 97146 96894 6 75911 cefdin ir 300 mg capsu le 7 days every 12 hours 139480 12 14 Capsule 0 4431324708 03881 19267 0 000935 Vitami n B12 2500 mcg table t 30 day(s) once a day 30 426050149 9 14602 71367 6 19860 cefdin ir 300 mg capsu le 7 days every 12 hours 145644 12 14 Capsule 0 3391671047 34948 39807 6 900596 DULoxe humaira 20 mg delay ed relea se capsu le 2 times a day 9398781696 74896 71092 1 63150 Mobic 15 mg table t 90 days once a day 90 3 655605897 9 59295 68927 6 78033 LaMICt al 150MG table t 90 days 2 times a day 180 Tablet 3 1896095042 25571 54821 9 22156 Difluc an 150 mg table t once and repeat in 3 days 715945 21 6346014493 25716 48927 0 797078 Symbic ort 160 mcg-4. 5 mcg/in h aeros ol 30 days 2 times a day 571352 13 1 5 3167640604 18104 05818 2 78096 EPINEP Hrine 0.3 mg kit 1 dose(s) once 650679 31 1 2 4309753668 35435 04114 6 86127 ZyrTEC 10 mg table t once a day prn 8573409968 53795 43159 0 70246 Valtre x 1 g table t 90 days once a day 056992 08 90 Tablet 1 5159171783 73139 39297 0 979188 Vitami n B12 2500 mcg table t 30 day(s) once a day 30 478076818 9 30920 69968 0 765322 Doxycy alexander Hyclat e hyclat e 100 mg capsu le 7 days 2 times a day 018746 25 14 Capsule 0 8099999234 49026 91080 0 302838 Symbic ort 160 mcg-4. 5 mcg/in h aeros ol 2 times a day 730585 13 8720567326 40331 70695 0 81000 omepra zole 20 mg delay ed relea se capsu le 90 days once a day 90 3 128437809 9 69768 66136 6 80531 LaMICt al 150MG table t 90 days 2 times a day 180 Tablet 2 8946446186 84977 75616 9 69328 Difluc an 150 mg table t 3 days once and repeat in 3 days 464306 21 2 0 2466143860 74484 68505 1 86153 Mobic 15 mg table t once a day 534643311 9 14091 58042 6 55583 ZyrTEC 10 mg table t once a day prn 2461959122 11359 52836 0 27203 Valtre x 1 g table t 90 days once a day 698102 08 90 Tablet 2 2879121027 44334 46330 2 26557 EPINEP Hrine 0.3 mg kit 1 dose(s) once 622413 31 1 2 4240990937 89572 68584 1 953769 Voltar en Topica l 1% gel 90 days 4 times a day 3 2 1550080907 25160 14175 1 36042 nitrof uranto in macroc rystal s 50 mg capsu le once a day at bedtime 9944045851 10559 08738 0 67491 ciprof loxaci n 500 mg table t 10 day(s) every 12 hours 201694 09 20 0 6754050857 99745 57390 1 01655 nitrof uranto in macroc rystal s 50 mg capsu le 1 cap( s) oral ly once a day at bedt esau 90 days once a day at bedtime 90 4 4221162788 60312 14201 1 31797 nitrof uranto in macroc rystal s 50 mg capsu le 1 cap( s) oral ly once a day at bedt esau once a day at bedtime 2367491887
--- OUTSIDE RECORDS SUMMARY | 2024-02-08 13:11 | XMS_ITS ---
Author Organization [facility] Address [address] [place] [address] Care Team Providers Care [employer]er Name Role Phone Charles Beckford Primary Care Provider Amber Bedolla Scott [phone] REASON FOR VISIT Labs Encounters Encounter Location Date Provider Diagnosis [facility] [address] [place] [address] 07/26/2023 Amber Bedolla Weight gain R63.5 Assessments Encounter Date Diagnosis (ICD Code) Assessment Notes Treatment Notes Treatment Clinical Notes Section Notes 07/26/2023 Weight gain (ICD-10 - R63.5) Plan Of Treatment Pending Test Test Name Order Date LIPID PANEL, STANDARD (7600) 07/26/2023 HEMOGLOBIN A1c (496) 07/26/2023 TSH W/REFLEX TO FT4 (93491) 07/26/2023 Progress Notes * Nory CEJA GDOB:[birth year] (68 yo F)Acc No.[id number]:07/26/2023 Patient:?Nory CEJA :1955???Age:68 Y???Sex:Female Address:[place] [address] Subjective: * Chief Complaints: * ???Labs * Medical History:? * Surgical History:? * Hospitalization/Major Diagno stic Procedure:? * Medications:? Objective: Assessment: * Assessment: 1.?Weight gain - R63.5 (Prim juan m)? Plan: * Treatment: * Procedure Codes:? * true * Date:? Generated for Will benson/Jennifer/Joseph on:?02/08/2024 01:11 PM EST
--- OUTSIDE RECORDS SUMMARY | 2024-02-08 13:11 | XMS_ITS ---
Author Organization [facility] PE D [place] Address [address] [place] [address] Care Team Providers Care Student Services Counselor Name Role Phone Charles Beckford Primary Care Provider Amber Bedolla [phone] Allergies No Known Allergies Reason For Referral Reason Please send triny pedro kit Diagnosis 1 Colon cancer screeni kelley (Z12.11) Referral Organization [facility] RENA WADDELL Referring Provider First Name Amber Referring Provider Last Name Chioma Referring Provider Speciality Family Pra ctice Referred Provider Diana mars General Notes Amber Bedolla 03:23:21 PM > faxed order Referral Priority Routine REASON FOR VISIT Medicare Wellness Medications Medication SIG (Take, Route, Frequency, Duration) Notes [...] per week for 30 days 07/27/2022 Active Immunizations Vaccine Route Administration Date Status Comme nts Arexvy Unknown 08/17/2023 Administered Boostrix IM Intramuscular 08/17/2023 Administered Problems Problem Type SNOMED Code ICD Code Onset Dates Problem Status W/U Status Risk Notes Problem 222959532 BMI 33.0-33.9,adult (Z68.33) Active confirmed Problem 986516799 Rheumatoid arthritis involving multiple sites with positive rheumatoid factor (M05.79) Active confirmed Problem 021945116 OAB (overactive bladder) (N32.81) Active confirmed Problem 233300098 Frequent falls (R29.6) Active confirmed Vital Signs Temperature 97.8 degrees Fahrenheit 08/17/19 24 Blood pressure systolic 118 mm Hg 08/17/19 24 Blood pressure diastolic 74 mm Hg 024 Heart Rate 74 /min 08/17/2023 Height 63 in 08/17/2023 Weight 191 lbs 08/17/2023 BMI 33.83 kg/m2 08/17/2023 Encounters Encounter Location Date Provider Diagnosis [address] [address] 08/17/2023 Amber Bedolla Arthralgia of multip le [...] falls R29.6 and Need for vaccination Z23 Assessments Encounter Date Diagnosis (ICD Code) Assessment Notes Treatment Notes Treatment Clinical Notes Section Notes 08/17/2023 Arthralgia of multiple sites (ICD-10 [...] (ICD-10 - R29.6) secondary to lower extremity weakness...worki ng with PT and specialty services 08/17/2023 Need for vaccination (ICD-10 - Z23) Plan Of Treatment Medication Medication Name Sig [...] and specialty services Referrals Referral Date Details 08/17/2023 08/17/2023, Please s end screening kit , [facility] cologuard Next Appt Details Follow Up: 6 Months, Reason: Progress Notes * Nory CEJA GDOB:[birth year] (68 yo F)Acc No.[id number]:08/17/2023 Progress Notes Patient:?Nory CEJA Provider:?ELIAZAR Pollock :1955???Age:68 Y???Sex:Female D ate:08/17/2023 Address:[place], [id number] Pcp:Charles Beckford Subjective: * Chief Complaints: * ???1. Medicare Wellness. * HPI: ???gen:? 68 yr old female presents today for annual Medicare wellness, chronic disease FU. No acute concerns. ?She is followed routinely by orthopedics ( for shoulder, Dr Rowan for hips and knees), Rheumatology for RA and fibromyalgia, NS at for LS DDD s/p L4-5 fusion and pain management at [facility]. Undergoing nerve blocks to help with pain [...] pain management instead of voltaren. * ROS:?FUNCTIONAL STATUS:?ADLS?Independent for all ADL/IADL.?RESPIRATORY:?no?Shortness of breath.?no?Chest pain.?no?Chest congestion.?no?Cough.?CARDIOLOGY:?Dizziness?yes,?occasional vertigo.?no?Chest pain.?no?Palpitations.?Leg edema?yes,?occasional.?no?Shortness of breath.?CONSTITUTIONAL:?Weight gain?yes.?DERMATOLOGY:?no?Rash.?GASTROENTEROLOGY:?Heartburn?yes.?no?Vomiting.?no?Abdominal pain.?no?Diarrhea.?no?Constipation.?MUSCULOSKELETAL:?See HPI?Yes.?NEUROLOGY:?no?Headache.?Tingling numbness?yes.?no?Seizures.?no?Insomnia.?Dizziness?yes,?with movement of head, chronic, recurrent, improves with zyrtec.?OPTHALMOLOGY:?Reviewed, No Symptoms Reported:?Yes.?PSYCHOLOGY:?no?Depression,?mood stable on lamictal.?no?Sleep disturbances.?UROLOGY:?no?Difficulty urinating.?Urinary incontinence?yes,?small amount, with coughing or sneezing.? * Medical History:?Hormone rep lacement therapy, Bilat knee osteoarthritis, GERD with stricture of esophagus, Mood disorder, LS DDD, Renal cysts, Rheumatoid arthritis. * Surgical History:?eye surger y during childhood , EGD August 2017 with chronic gastritis, negative biopsies , right knee meniscus repair 2017, Dr Rowan , Left total knee replacement 01/2019, right total knee replacement 02/2019, LEFT hip replacement 2019, Lumbar fusion L4-L5 12/2021, Rt shoulder 02/2023. * Hospitalization/Major Diagno stic Procedure:? x 3 , UTI 01/1980, [facility]- Left total knee 01/2019, [facility]-right total knee 02/2019, [facility] - Left hip replacement . * Family History:?Father: miguel angel sargent, prostate cancer and cirrhosis.?Mother: , hypertension, diabetes, type II, vitamin B 12 defiency, macular degeneration.?Paternal Grand Father: .?Paternal Grand Mother: .?Maternal Grand Father: , rheumatoid arthritis.?Maternal Grand Mother: , diabetes, type II.?Paternal uncle: diabetes, [place].?Paternal aunt: rheumatoid arthritis, diabetes, HLP, macular degeneration.?Maternal aunt: breast cancer, diabetes, CHF, HLP, osteoarthritis, macular degeneration.?Children: rheumatoid arthritis, oldest daughter breast cancer, diagnosed with Cancer.?1 brother(s) , 1 sister(s) - healthy. 3 daughter(s) . .? * Social History:?Smoking: no? Are you a:: nonsmoker.?Recreational drug use: no. Exercise: yes, Therapy. Home smoke detector use: yes. Caffeine: yes, frequency:1 soda qd. Living Will: Yes. Alcohol: socially, Type: wine , Frequency:rarely ,Years: , Determination:. Sexually active: yes. Travel outside [place]: yes, [place]. Occupation: Retired. * Medications:?Taking Ozempic 2 mg/3 mL (0.25 mg or [...] reviewed and reconciled with the patient * Allergies:?N.K.D.A. Objective: * Vitals:?Nurse: dw, Temp: 97. 8, RR: 20, HR: 74, BP: 118/74, Ht: 63, Wt: 191, BMI:33.83. * Examination: ???General Examination: ?General?Pleasant and Cooperative, NAD on RA.?Oral cavity:?no lesions.?Breasts :? no lumps felt on either side.?Heart:?RRR. 1/6 systolic murmur.?HEENT:?pharynx and tonsils normal, TM's normal.?Lungs:?clear to auscultation.?Abdomen:?soft, NT/ND, BS present, no masses palpated, no hepatosplenomegaly.?Neurologic Exam:? no focal signs,, Alert and oriented x 3.?Skin:?normal, no rash.?Peripheral pulses:?normal (2+) bilaterally.?Extremities:?no clubbing, no edema, bilat anterior knee incisions are well healed, bilat feet with mild bunion deformity and early hammer toe deformity bilat 2nd toe. mild thickening 2-4 MCP bilat.?neck?supple, no thyromegaly, no lymphadenopathy.?Psych?Normal Mood/Affect.?RENEWALS MANAGER: ?breasts?normal bilateral.? Assessment: * Assessment: 1.?Medicare annual wellness visit, initial - Z00.00 (Primary)?2.?Arthralgia of multiple sites - M25.50?3.?Lumbar degenerative disc disease - M51.36?4.?Renal cyst - N28.1?5.?Mood disorder - F39?6.?BMI 33.0-33.9,adult - Z68.33?7.?Rheumatoid arthritis involving multiple sites with positive rheumatoid factor - M05.79?8.?Colon cancer screening - Z12.11?9.?OAB (overactive bladder) - N32.81?10.?Recurrent UTI - N39.0?11.?Frequent falls - R29.6?12.?Need for vaccination - Z23? Plan: * Treatment: 2.?Arthralgia of multiple si maricel? Notes: multiple specialists following?? 3.?Renal cyst? Notes: stable on imaging, urology did not recommend routine FU?? 4.?Mood disorder? Notes: stable on lamictal?? 5.?BMI 33.0-33.9,adult? Notes: on Ozempic and tolerating?? 6.?Rheumatoid arthritis invo lving multiple sites with positive rheumatoid factor? Notes: rheumatology following?? 7.?Colon cancer screening? Referral To:[facility] cologuard ?Reason:Please send screening kit 8.?OAB (overactive bladder)? Stop oxyBUTYnin tablet, extended release, 10 mg/24 hr, 1 tab(s), orally, once a day;?Start Gemtesa tablet, 75 mg, 1 tab(s), orally, once a day, 90 days, 90 Tablet, Refills 1.?? Notes: trial of Gemtesa?? 9.?Recurrent UTI? Notes: continue macrodantin for now?? 10.?Frequent falls? Notes: secondary to lower extremity weakness...working with PT and specialty services?? * Immunizations:? Arexvy (Dose No:1) given by KARUNA Hernandez on Left Deltoid??? Boostrix : .5 mL (Dose No:1) (Route: Intramuscular) given by KARUNA Hernandez on Right Deltoid * Procedure Codes:?57368 Arexv y, 78653 ADMINISTRATION IMMUNIZATION ONE VACCINE, 64182 Boostrix, 93711 immunization administration through 18 years of age via any route of administration., G0438 [facility]; PERSNL PPS INIT, G8304 PT W/DXA DOCUMENT OR ORDER, 1123F ADVANCED DIRECTIVE - HAS A LIVING WILL, G9899 Screening diagnostic,film,digital results documented and reviewed, 3017F COLORECTAL CA SCREEN DOC REV, O0359 BMI >=30 CALCUATE W/FOLLOWUP, G9717 DOC PT HAS ACTIV DX DEPR/BIPOLR D/O, G9903 Pt scrn tbco id as non user, G9744 PATIENT NOT ELIG D/T ACTIVE DX HTN * Preventive Medicine:? ??Counseling:?Living will?Has living will.? ??SHEILA Screening:?Falls: Future screening for fall risks?Have you had two or more falls in the past year??Yes,?Have you had any falls with injury in the past year??No.? ??Depression Screening:?PHQ 2?Feeling down depressed or hopeless?No.? ??Immunizations:?influenza?Have you had a flu shot since the most recent November 05 ??Yes.?Pneumonia vaccine: Status for Older Adults?Are you up-to-date on your pneumonia vaccine? yes or no?PCV 20 today, UTD.?Tdap?Done today in office.?Hepatitis A?Completed series.?Shingrix?Discussed and will consider.?COVID?Completed series.?RSV vaccination?Completed for season.? ??Screening / Special Tests:?Mammogram?up to date.?Pap Smear?2013.?Colonoscopy?2008, delayed due to other surgeries, good candidate for Cologuard.?Bone mineral Density?plan to do later this fall with mammogram.?Lung Cancer Screening?Not indicated - nonsmoker.? * Follow Up:?6 Months * * Sign off status: Completed true * Provider:?ELIAZAR Pollock Date:? 08/17/2023 Generated for Will benson/Jennifer/eTmelisaitting on:?02/08/2024 01:11 PM EST History and Physical Notes * Examination Category Sub-Category Detail Notes Category Not es General Examination HEENT: pharynx and tonsils normal, [...] tive, NAD on RA Psych Normal Mood/Affect RENEWALS MANAGER breasts normal bilateral Consultation Request Notes Referral Date Referring Provider Referred Provider Not pal 08/17/2023 Amber Bedolla, [facility] Please send screening kit
--- OUTSIDE RECORDS SUMMARY | 2024-02-08 13:12 | XMS_ITS | Encounter Summary ---
Author Organization Healthcare Address [address] [place] [address] Care Team Providers Care Tax Audit Manager Name Role Phone Chioma Amber Antonio PALAFOX Primary Care Provider [phone] Tarik Cadet MD Unavailable [phone] Encounter Details Date Type Department Care Team (Latest Contact Info) Description 10/12/2023 11:04 AM EDT - 10/12/2023 11:59 PM EDT Hospital Encounter [facility] [address], [address] [place] [address] Bilateral low back pain without sciatica, unspecified chronicity; Lumbar spinal stenosis due to adjacent segment disease after fusion procedure; Anterolisthesis of lumbar spine; DDD (degenerative disc disease), lumbar; Spondylolisthesis of lumbar region Discharge Disposition: Home or Self Care Social History Tobacco Use Types Packs/Day Years Used Date Smoking Tobacco: Never Smokeless Tobacco: Never Alcohol Use Standard Drinks/Week Comments No 0 (1 standard drink = 0.6 oz pur e alcohol) CAGE ASSESSMENT Answer Date Recorded Cage unable to access Not on file 12/30/2021 Cage max number of drinks Not on file 2021 Cage Beverages a week Not on file 12/30/2021 Have you ever felt you should CUT down on your d rinking? 0 12/30/2021 Have you been ANNOYED by people criticizing your drinking? 0 12/30/2021 Have you felt GUILTY about your drinking? 0 12/30/2021 Have you had a drink first t mony in the morning (EYE-[employer]BU[employer] MEMBER) to steady your nerves or to get rid of a hangover? 0 12/30/2021 CAGE Questionnaire Score 0 022 Comments No Sex and Gender Information Value Date Recorded Sex Assigned at Female 04/06/2021 6:45 PM EST Legal Sex Female 8:19 PM EDT Gender Identity Female 04/06/2021 6:45 PM EST Sexual Orientation Straight 04/06/2021 6: 45 PM EST documented as of this encounter Medications at Time of Discharge Acetaminophen 500 MG capsule Take 2 capsules (1,000 mg) by mouth every 8 (eight) hours if needed for mild pain or moderate pain. 100 capsule 02/04/2023 baclofen (Lioresal) 10 MG tablet Take 1 tablet (10 mg) by mouth if needed. 07/11/2023 Cetirizine HCl (ZyrTEC ALLERGY) 10 MG capsule if needed. Cyanocobalamin (Vitamin B-12) 2500 MCG sublingual tablet 1 (one) time each day in the morning. 01/05/2022 diclofenac (Voltaren) 1 % topical gel APPLY 2 GRAMS TOPICALLY 4 TIMES DAILY 02/26/2021 estradiol (Estrace) 0.1 MG/GM vaginal cream DIRECTED INTRAVGINALLY TWICE A WEEK FOR 30 DAYS 07/27/2022 gabapentin (Neurontin) 300 MG capsule 2 capsules (600 mg) every night. 11/22/2022 hydroxychloroqui ne (Plaquenil) 200 MG tablet Take 1 tablet (200 mg) by mouth 2 (two) times a day. 02/15/2022 ibuprofen 600 MG tablet Take 1 tablet (600 mg) by mouth every 6 (six) hours if needed for mild pain or moderate pain. 75 tablet 02/04/2023 lamoTRIgine (LaMICtal) 150 MG tablet every 12 (twelve) hours. 05/09/2013 meloxicam (Mobic) 15 MG tablet Take 10 mg by mouth 1 (one) time each day. naloxone (Kloxxado) 8 mg/0.1 mL nasal spray 1. Give 1 spray in nostril for no/slow breathing or cannot wake after opioid use 2. Call 911 3. Repeat in other nostril if symptoms continue 1 each 02/04/2023 nitrofurantoin (Macrodantin) 50 MG capsule every night. 11/03/2022 omeprazole (PriLOSEC) [address] capsule 1 (one) time each day in the morning. 04/07/2020 ondansetron (Zofran) 8 MG tablet Take 1 tablet (8 mg) by mouth every 8 (eight) hours if needed for nausea or vomiting. 25 tablet 02/04/2023 oxybutynin XL (Ditropan-XL) 10 MG 24 hr tablet Take 1 tablet (10 mg) by mouth 1 (one) time each day in the morning. Do not crush, chew, or split. Semaglutide,0.25 or 0.5MG/DOS, (Ozempic, 0.25 or 0.5 MG/DOSE,) 2 MG/3ML solution pen-injector Inject 0.5 mg under the skin 1 (one) time per week. senna-docusate (Yudelka-Colace) 8.6-50 MG tablet Take 1 tablet by mouth 1 (one) time each day if needed for constipation (prn constipation while taking pain medications.). 50 tablet 02/04/2023 Vibegron (Gemtesa) 75 MG tablet Take 1 tablet by mouth Daily. 08/17/2023 documented as of this encounter Plan of Treatment Not on file documented as of this encounter Procedures Procedure Name Priority Date/Time Associated Diagnosis Comments XR SCOLIOSIS ENTIRE SPINE 2 OR 3 VIEWS Routine 10/12/2023 11:16 AM EDT Bilateral low back pain without sciatica, unspecified chronicity Lumbar spinal stenosis due to adjacent segment disease after fusion procedure Anterolisthesis of lumbar spine DDD (degenerative disc disease), lumbar Spondylolisthesis of lumbar region documented in this encounter Results * XR Scoliosis Entire Spine 2 or 3 Views (10/12/2023 11:16 AM EDT) Anatomical Region Laterality Modality Spine Digital Radiogra phy Impressions 10/12/2023 12:37 PM EDT L4-5 posterior fusion without hardware failure or loosening. Moderate to severe L5-S1 and severe L3-4 discogenic disease. Severe T8-9 discogenic disease. Severe C6-7 discogenic disease. CRITICAL RESULT: ?? No. COMMUNICATION: Per this written report. Drafted by Cyril Stacy MD on 10/12/2023 12:35 PM Final report signed by Cyril Stacy MD on 10/12/2023 12:37 PM Narrative 10/12/2023 12:37 PM EDT CLINICAL INDICATION: post surgical follow up TECHNIQUE: XR SCOLIOSIS ENTIRE SPINE 2 OR 3 VIEWS COMPARISON: 07/04/2023 FINDINGS: Overlying stool, soft tissue, bowel gas limits evaluation of the lumbar spine and pelvis. Left total hip arthroplasty partially imaged. Moderate right hip osteoarthrosis. Mid and lower cervical uncovertebral hypertrophy. Straightening of cervical lordosis with grade 1 anterolisthesis at C3-4 and C4-5. Severe C5-6 disc space narrowing with sclerosis and osteophytosis. There is probable moderate C6-7 discogenic disease. Patient shoulders obscure evaluation at this level. Marked mid and lower cervical facet arthrosis. Multilevel cervical discogenic disease which is severe at T8-9. No cervical spine malalignment. L4-5 posterior fusion with severe L3-4 disc space narrowing with endplate sclerosis. No hardware complication. Moderate to severe L5-S1 disc space narrowing. Procedure Note Cyril Stacy MD - 10/12/2023 CLINICAL INDICATION: post surgical follow up TECHNIQUE: XR SCOLIOSIS ENTIRE SPINE 2 OR 3 VIEWS COMPARISON: 07/04/2023 FINDINGS: Overlying stool, soft tissue, bowel gas limits evaluation of the lumbarspine and pelvis. Left total hip arthroplasty partially imaged. Moderateright hip osteoarthrosis. Mid and lower cervical uncovertebral hypertrophy. Straightening ofcervical lordosis with grade 1 anterolisthesis at C3-4 and C4-5. SevereC5-6 disc space narrowing with sclerosis and osteophytosis. There isprobable moderate C6-7 discogenic disease. Patient shoulders obscureevaluation at this level. Marked mid and lower cervical facet arthrosis. Multilevel cervical discogenic disease which is severe at T8-9. Nocervical spine malalignment. L4-5 posterior fusion with severe L3-4 disc space narrowing with endplatesclerosis. No hardware complication. Moderate to severe L5-S1 disc spacenarrowing. IMPRESSION: L4-5 posterior fusion without hardware failure or loosening. Moderate to severe L5-S1 and severe L3-4 discogenic disease. Severe T8-9 discogenic disease. Severe C6-7 discogenic disease. CRITICAL RESULT: No. COMMUNICATION: Per this written report. Drafted by Cyril Stacy MD on 10/12/2023 12:35 PM Final report signed by Cyril Stacy MD on 10/12/2023 12:37 PM Tarik Cadet MD IMG XR PROCEDURES Final Result documented in this encounter Visit Diagnoses Diagnosis Bilateral low back pain without sciatica, unspecified chronicity Lumbar spinal stenosis due to adjacent segment disease after fusion procedure Anterolisthesis of lumbar spine DDD (degenerative disc disease), lumbar Degeneration of lumbar or lumbosacral intervertebral disc Spondylolisthesis of lumbar region documented in this encounter Additional Health Concerns Assessment Noted Time A fall risk assessment has been complete d for the patient 10/12/2023 11:00 AM EDT A Body Mass Index follow-up plan has been documented for the patient 10/12/2023 12:22 PM EDT documented as of this encounter Care Teams Tax Audit Manager Relationship Specialty Start Date End Date Amber Bedolla APRN [facility] [id number] PCP - General 07/18/20 Tarik Cadet MD [id number] [place] [address] Surgeon Neurosurgery 05/25/21 documented as of this encounter
--- OUTSIDE RECORDS SUMMARY | 2024-02-08 13:12 | XMS_ITS | Encounter Summary ---
Author Organization Healthcare Address [address] [id number] Care Team Providers Care Transportation Lead Name Role Phone Amber Bedolla Antonio PALAFOX Primary Care Provider [phone] Tarik Cadet MD Unavailable [phone] Encounter Details Date Type Department Care Team (Late st Contact Info) Description 07/06/2023 Orders Only [place] [facility] [address] [place] [address] Leyla Ortega PA [address] [place] [address] S/P lumbar spinal fusion (Primary Dx); Bilateral low back pain without sciatica, unspecified chronicity; Lumbar spinal stenosis due to adjacent segment disease after fusion procedure Social History Tobacco Use Types Packs/Day Years [...] drink first t mony in the morning (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 0 12/30/2021 CAGE Questionnaire Score 0 022 Comments No Sex and Gender Information Value Date Recorded Sex Assigned at Female 04/06/2021 6:45 PM EST Legal Sex Female 8:19 PM EDT Gender Identity Female 04/06/2021 6:45 PM EST Sexual Orientation Straight 04/06/2021 6: 45 PM EST documented as of this encounter Plan of Treatment Not on file documented as of this encounter Visit Diagnoses Diagnosis S/P lumbar spinal fusion- Primary Arthrodesis status Bilateral low back pain without sciatica, unspecified chronicity Lumbar spinal stenosis due to adjacent segment disease after fusion procedure documented in this encounter Additional Health Concerns Assessment Noted Time A fall risk assessment has been complete d for the patient 07/05/2023 2:41 PM EDT A Body Mass Index follow-up plan has been documented for the patient 07/06/2023 11:26 AM EDT documented as of this encounter Care Teams Transportation Lead Relationship Specialty Start Date End Date Amber Bedolla APRN [address] [id number] PCP - General 07/18/20 Tarik Cadet MD [address] [facility] [address] [place] [address] Surgeon Neurosurgery 05/25/21 documented as of this encounter
--- OUTSIDE RECORDS SUMMARY | 2024-02-08 13:12 | XMS_ITS | Encounter Summary ---
Author Organization [facility] Address [address] [place] [address] Care Team Providers Care High Pressure Kettle Operator Name Role Phone ChiomaAmber barrios Antonio PALAFOX Primary Care Provider [phone] Tarik Cadet MD Unavailable [phone] Encounter Details Date Type Department Care Team (Latest Contact Info) Description 10/12/2023 Travel Social History Tobacco Use Types Packs/Day Years [...] drink first t mony in the morning (EYE-PAINTER RAILROAD CAR) to steady your nerves or to get [...] documented as of this encounter Visit Diagnoses Not on filedocumented in this encounter Additional Health Concerns Assessment Noted Time A fall risk assessment has been complete d for the patient 10/12/2023 11:00 AM EDT A Body Mass Index follow-up plan has been documented for the patient 10/12/2023 12:22 PM EDT documented as of this encounter Care Teams High Pressure Kettle Operator Relationship Specialty Start Date End Date Amber Bedolla APRN [address] [phone] PCP - General 07/18/20 Tarik Cadet MD [id number] [place] [address] Surgeon Neurosurgery 05/25/21 documented as of this encounter
--- OUTSIDE RECORDS SUMMARY | 2024-02-08 13:12 | XMS_ITS | Encounter Summary ---
Author Organization Healthcare Address [address] [place] [address] Care Team Providers Care Phone Screener Name Role Phone ChiomaAmber Antonio PALAFOX Primary Care Provider [phone] Tarik Cadet MD Unavailable [phone] Encounter Details Date Type Department Care Team (Latest Contact Info) Description 07/04/2023 9:00 AM EDT - 07/04/2023 11:59 PM EDT [facility] [address], [address] [place] [address] S/P lumbar spinal fusion Discharge Disposition: Home or Self Care Social [...] drink first t mony in the morning (EYE-RAILWAY SHUNTER) to steady your nerves or to get rid of a hangover? 0 12/30/2021 CAGE Questionnaire Score 0 10/26/2 022 Comments No Sex and Gender Information [...] pain or moderate pain. 100 capsule 02/04/2023 Cetirizine HCl (ZyrTEC ALLERGY) 10 MG capsule [...] morning. Do not crush, chew, or split. senna-docusate (Yudelka-Colace) 8.6-50 MG tablet Take 1 tablet by mouth 1 (one) time each day if needed for constipation (prn constipation while taking pain medications.). 50 tablet 02/04/2023 documented as of this encounter Plan of Treatment Not on file documented as of this encounter Procedures Procedure Name Priority Date/Time Associated Diagnosis Comments XR LUMBAR SPINE 2 OR 3 VIEWS Routine 07/04/2023 9:24 AM EDT S/P lumbar spinal fusion documented in this encounter Results * XR Lumbar Spine 2 or 3 Views (07/04/2023 9:24 AM EDT) Anatomical Region Laterality Modality Spine, L-spine Digital Radiogra phy Impressions 07/04/2023 9:37 AM EDT 1.Posterior body fusion at L4-L5 without hardware complication. 2.Severe degenerative disc changes at L3-L4 and moderate at L1-L2, L2-L3 and L5- S1. 3.Minimal anterior subluxation at L2-L3 and posterior subluxation at L3-L4 without instability. 4.Severe degenerative disc changes at C5-C6 and T8-T9. CRITICAL RESULT: ?? No. COMMUNICATION: Per this written report. Drafted by Robert Pepe MD on 07/04/2023 9:33 AM Final report signed by Robert Pepe MD on 07/04/2023 9:37 AM Narrative 07/04/2023 9:37 AM EDT CLINICAL INDICATION: low back pain TECHNIQUE: XR LUMBAR SPINE 2 OR 3 VIEWS, XR SCOLIOSIS ENTIRE SPINE 2 OR 3 VIEWS COMPARISON: May 16, 2023. FINDINGS: 2 views of the lumbar spine show posterior interbody fusion at L4-L5. Disc space narrowing at L1-L2 through L3-L4 and at L5-S1. Severe degenerative disc changes at L3-L4. Minimal anterior subluxation at L2-L3 and posterior subluxation at L3-L4. No instability in flexion or extension. No fracture or bone destruction. 2 views of the spine show severe degenerative disc changes at C5-C6 and T8-T9. Moderate degenerative disc changes at C4-C5. Minimal anterior subluxation at C4- C5. Coronal balance is neutral. Sagittal balance is slightly positive. No fracture or bone destruction. Aorta is mildly tortuous. Cardiac silhouette is appropriate in size and configuration. No significant pulmonary parenchymal abnormality. Old healed left rib fractures. Procedure Note Robert Pepe MD - 07/04/2023 CLINICAL INDICATION: low back pain TECHNIQUE: XR LUMBAR SPINE 2 OR 3 VIEWS, XR SCOLIOSIS ENTIRE SPINE 2 OR 3 VIEWS COMPARISON: May 16, 2023. FINDINGS: 2 views of the lumbar spine show posterior interbody fusion at L4-L5. Discspace narrowing at L1-L2 through L3-L4 and at L5-S1. Severe degenerativedisc changes at L3-L4. Minimal anterior subluxation at L2-L3 and posteriorsubluxation at L3-L4. No instability in flexion or extension. No fractureor bone destruction. 2 views of the spine show severe degenerative disc changes at C5-C6 andT8-T9. Moderate degenerative disc changes at C4-C5. Minimal anteriorsubluxation at C4- C5. Coronal balance is neutral. Sagittal balance isslightly positive. No fracture or bone destruction. Aorta is mildlytortuous. Cardiac silhouette is appropriate in size and configuration. Nosignificant pulmonary parenchymal abnormality. Old healed left ribfractures. IMPRESSION: 1.Posterior body fusion at L4-L5 without hardware complication. 2.Severe degenerative disc changes at L3-L4 and moderate at L1-L2, L2-L3and L5- S1. 3.Minimal anterior subluxation at L2-L3 and posterior subluxation at L3- W2zrebcie instability. 4.Severe degenerative disc changes at C5-C6 and T8-T9. CRITICAL RESULT: No. COMMUNICATION: Per this written report. Drafted by Robert Pepe MD on 07/04/2023 9:33 AM Final report signed by Robert Pepe MD on 07/04/2023 9:37 AM Leyla BURGER IMG XR PROCEDURES Final Result documented in this encounter Visit Diagnoses Diagnosis S/P lumbar spinal fusion Arthrodesis status documented in this encounter Additional Health Concerns Assessment Noted Time A fall risk assessment has been complete d for the patient 07/04/2023 9:35 AM EDT A Body Mass Index follow-up plan has been documented for the patient 07/04/2023 10:39 AM EDT documented as of this encounter Care Teams Phone Screener Relationship Specialty Start Date End Date Amber Bedolla APRN [facility] [id number] PCP - General 07/18/20 Tarik Cadet MD [id number] [place] [address] Surgeon Neurosurgery 05/25/21 documented as of this encounter
--- OUTSIDE RECORDS SUMMARY | 2024-02-08 13:12 | XMS_ITS | Patient Health Record ---
Author Organization [facility] Address [address] [place] [address] Care Team Providers Care Counter Supervisor Name Role Phone Charles Beckford Primary Care Provider Amber Bedolla Unavailable [phone] Allergies No Known Allergies Results Component Value Reference Range Notes X ray : Hip, Left Reviewed date:07/26/2023 04:47:48 PM Interpretation: Performing Lab: Notes/Report: MRI : Hip, Left Reviewed date:08/02/2023 02:03:26 PM Interpretation: Performing Lab: Notes/Report: M-Thyroid Stimulating [...] 8% Poorly Controlled Diabetic Level MRI : Lumbar Spine w/o contr ast Reviewed date:07/02/2023 08:26:05 AM Interpretation: Performing Lab: Notes/Report: Reason For Referral Reason Dr. Peter Diagnosis 1 Lumbar degenerative disc disease (M51.36) Diagnosis 2 Acute left-sided low back pain with left-sided sciatica (M54.42) Diagnosis 3 Lumbago with sciatic a, right side (M54.41) Referral Organization [facility] ACE Referring Provider First Name Charles Referring Provider Last Name Brandtgabriel Referring Provider [facility] General Notes Mei Isabel 2023 02:43:48 PM >Referral sent to Dr. Peter Referral Priority Routine Reason MRI left hip at [facility] Diagnostic Diagnosis 1 Left hip pain (M25.5 52) Referral Organization [facility] Referring Provider First Name Amber Referring Provider Last Name Chioma Referring Provider [facility] General Notes Sabrina Bello 09:08:24 AM > faxed and they will call her to schedule Referral Priority Routine Reason Please send screenin g kit Diagnosis 1 Colon cancer screeni ng (Z12.11) Referral Organization [facility] Referring Provider First Name Amber Referring Provider Last Name Chioma Referring Provider [facility] Referred Provider Diana mars General Notes Amber Bedolla 03:23:21 PM > faxed order Referral Priority Routine Medications Medication SIG (Take, Route, Frequency, Duration) [...] once a day for 30 day(s) Active Immunizations Vaccine Route Administration Date Status Comme nts Fluvirin--Influenza vaccine 3+ year Unknown 12/26/2006 Administered [...] 2 Dose IM Intramuscular 12/20/2018 Administere d Flublok IM Intramuscular 11/29/2019 Administered Boostrix IM Intramuscular 08/17/2023 Administered Arexvy Unknown 08/17/2023 Administered Adacel (Tdap) IM Intramuscular 03/14/2008 Administered Influenza-Fluzone 3+years (NON-MEDICARE) IM Intramuscular 12/24/2014 Administered Influenza-Fluzone 3+years (NON-MEDICARE) IM Intramuscular 12/29/2017 Administered Prevnar PCV-20 (Pneumococcal conjugate 20) IM Intramuscular 12/09/2021 Administered Problems Problem Type SNOMED Code ICD Code Onset Dates Problem Status W/U Status Risk Notes Problem 592878182 Lumbago with sciatica, right side (M54.41) Active confirmed Problem 761074775 BMI 31.0-31.9,ad ult (Z68.31) Active confirmed Problem 749422609 BMI 33.0-33.9,ad ult (Z68.33) Active confirmed Problem 63446454 Other chronic pa in (G89.29) Active confirmed Problem 760105833 Gastroesophageal reflux disease, esophagitis presence not specified (K21.9) Active confirmed Problem 743672953 Primary osteoarthritis of both knees (M17.0) Active confirmed Problem 602349218 Frequent falls (R29.6) Active confirmed Problem 85601077 Mood disorder (F39) Active confirmed Problem 069561394 Rheumatoid arthritis involving multiple sites with positive rheumatoid factor (M05.79) Active confirmed Problem 333064334 OAB (overactive bladder) (N32.81) Active confirmed Problem 16300593 Iron deficiency anemia, unspecified iron deficiency anemia type (D50.9) Active confirmed Problem 85390530 Lumbar degenerat alyson disc disease (M51.36) Active confirmed Problem 87504026 Arthralgia of multiple sites (M25.50) Active confirmed Problem 06070094 BMI 29.0-29.9,ad ult (Z68.29) Active confirmed Problem 521638039 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) Active confirmed Problem 049492101 Renal cyst (N28.1) Active confirmed Problem 579844104 Acute left-sided low back pain with left-sided sciatica (M54.42) Active confirmed Problem 172555041180423 Primary osteoarthritis of left hip (M16.12) Active confirmed Problem 7977253433656118 Suprapatellar bursitis of left knee (M70.52) Active confirmed Problem 29286877 Esophageal dysphagia (R13.10) Active confirmed Problem 5600404894145648 Suprapatellar bursitis of right knee (M70.51) Active confirmed Problem 551761214 Postoperative examination (Z09) Active confirmed Problem 539812528 Difficulty walki ng (R26.2) Active confirmed Vital Signs Heart Rate 74 /min 08/17/2023 Temperature 97.8 degrees Fahrenheit 08/17/2023 Blood pressure diastolic 74 mm Hg 08/17/2023 Height 63 in 08/17/2023 Blood pressure systolic 118 mm Hg 08/17/2023 Weight 191 lbs 08/17/2023 BMI 33.83 kg/m2 08/17/2023 Encounters Encounter Location Date Provider Diagnosis [facility] [address] [facility] [address] [place] [address] 07/25/2023 Amber Bedolla Left hip pain M25.55 2 ; Lumbar degenerative disc disease M51.36 ; Decreased range of left hip movement M25.652 and Status post left hip replacement Z96.642 [facility] [address] [address] 08/17/2023 Amber Bedolla Arthralgia of multip le [...] falls R29.6 and Need for vaccination Z23 [facility] [address] [facility] [address] [place], [place] [address] 02/09/2023 Amber Bedolla [facility] [address] [facility] [address] [place], [place] [address] 04/13/2023 Amber Bedolla [facility] [address] [facility] [address] [place] [address] 04/27/2023 Amber Bedolla [facility] [address] [facility] [address] [place], [place] [address] 06/23/2023 Amber Bedolla Lumbago with sciatic a, right side M54.41 ; Other chronic pain G89.29 ; S/P lumbar fusion Z98.1 and Right leg weakness R29.898 [facility] [address] [facility] [address] [place], [place] [address] 06/30/2023 Amber Bedolla Lumbar degenerative disc disease M51.36 and Acute left-sided low back pain with left-sided sciatica M54.42 [facility] [address] [facility] [address] [place], [place] [address] 07/11/2023 Amber Bedolla [facility] [address] [place], [place] [address] 07/18/2023 Amber Bedolla [facility] [address] [place] [address] 07/19/2023 Amber Bedolla [facility] [address] [place], [place] [address] 07/25/2023 Amber Bedolla Left hip pain M25.55 2 ; Difficulty walking R26.2 and Status post left hip replacement Z96.642 [facility] [address] [place], [place] [address] 07/26/2023 Amber Bedolla Weight gain R63.5 [facility] [address] [facility] [address] [place], [place] [address] 10/23/2023 Amber Bedolla Assessments Encounter Date Diagnosis (ICD Code) Assessment Notes Treatment Notes Treatment Clinical Notes Section Notes 06/23/2023 Lumbago with sciatica, right side (ICD-10 [...] - R29.6) secondary to lower extremity weakness...worki kelley with PT and specialty services 08/17/2023 Need for vaccination (ICD-10 - Z23) Plan Of Treatment Pending Test Test Name Order Date X ray : Pelvis 06/10/2012 Bone Density 07/09/2006 Mammogram : Diagnostic 07/09/2006 occult blood 05/31/2013 Echocardiogram 05/31/2013 Physical Therapy 03/10/2020 Physical Therapy 08/08/2019 C-Peptide Level 05/07/2010 C-INSULIN 05/07/2010 C-CBC 09/13/2016 C-CMP 09/13/2016 C-LIPID PANEL 09/13/2016 C-LIPID PANEL 10/18/2011 C-TSH 10/18/2011 C-MELINDA 07/19/2011 C-MELINDA 05/30/2013 C-VITAMIN B12 10/18/2011 C-KIDNEY STONE ANALYSIS 01/27/2015 C-ASO TITER 07/19/2011 [id number] CITRULLINATED PEPTIDE 05/07 Ultrasound : Soft Tissue Abdomen 023 C-TIBC 05/07/2010 M-Erythrocyte Sedimentation Rate 019 M-Lipid Panel 10/17/2019 M-Lipid Panel 12/20/2018 M-Vitamin D 25 Hydroxy 12/20/2018 M-RA Latex Turbid. 12/20/2018 Physical Therapy : Aquatic Therapy 02/22 LIPID PANEL, STANDARD (7600) 07/26/2023 HEMOGLOBIN A1c (496) 07/26/2023 TSH W/REFLEX TO FT4 (22082) 07/26/2023 Future Test Test Name Order Date Mammogram : Left breast 02/10/2010 Insurance Providers Payer Name Payer Address Payer Phone Subscriber Number Group Number Insured Name Patient Relationship to Insured Coverage Start Date Coverage End Date [place] [address] [place] [address] [id number] Nory Ceja Self - patient is the insured [employer] [address] [place] [address] [phone] [id number] Nory Ceja Self - patient is the insured [employer] [address] [place] [address] [address] [place] [address] ACL Nory Ceja Self - patient is the insured Medications Administered Medication Instructions Date of Administration Dosage Notes Kenalog 11/28/2015 1 mL Medical (General) History Medical History History ICD Code hormone replacement therapy Bilat knee osteoarthritis GERD with stricture of esophagus Mood disorder LS DDD Renal cysts rheumatoid arthritis Surgical History Surgery Date(Month/Year) Rt shoulder 02/2023 Lumbar fusion L4-L5 12/2021 LEFT hip replacement 2019 right total knee replacement 02/2019 Left total knee replacement 01/2019 right knee meniscus repair 2017, Dr Kassidy garner EGD August 2017 with chronic gastritis, ne gative biopsies eye surgery during childhood Hospitalization History Reason Date(Month/Year) [facility] - Left hip replacement [facility]right total knee 02/2019 [facility]- Left total knee 01/2019 UTI 01/1980 x 3
--- OUTSIDE RECORDS SUMMARY | 2024-02-08 13:12 | XMS_ITS | Encounter Summary ---
Author Organization Healthcare Address [address] [id number] Care Team Providers Care Public Health Specialist Name Role Phone Amber Bedolla VIVIENNE Primary Care Provider [phone] Tarik Cadet MD Unavailable [phone] Encounter Details Date Type Department Care Team (Late st Contact Info) Description 05/16/2023 2:00 PM EDT Office Visit [place] [facility] [address], [address] [place] [address] Tarik Cadet MD [address] [place] [address] S/P lumbar spinal fusion (Primary Dx) Social History Tobacco Use Types Packs/Day Years [...] drink first t mony in the morning (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 0 12/30/2021 CAGE Questionnaire Score 0 022 Comments No Sex and Gender Information Value Date Recorded Sex Assigned at Female 04/06/2021 6:45 PM EST Legal Sex Female 8:19 PM EDT Gender Identity Female 04/06/2021 6:45 PM EST Sexual Orientation Straight 04/06/2021 6: 45 PM EST documented as of this encounter Last Filed Vital Signs Vital Sign Reading Time Taken Comments Blood Pressure 142/80 05/16/2023 2:10 PM EDT Pulse - - Temperature - - Respiratory Rate 18 05/16/2023 2:10 PM EDT Oxygen Saturation 99% 05/16/2023 2:10 PM EDT Inhaled Oxygen Concentration - - Weight 86.5 kg (190 lb 9.6 oz) 05/16/2023 2:10 P M EDT Height 161.3 cm (5' 3.5 ) 05/16/2023 2:10 PM EDT Body Mass Index 33.23 05/16/2023 2:10 PM EDT documented in this encounter Miscellaneous Notes * Progress Notes - Leyla Armas PA - 05/16/2023 2:00 PM EDT We had the pleasure of seeing your patient in our clinic today for continued Neurosurgical evaluation. Chief Complaint One year and 5 month postoperative follow-up. History Of Present Illness Marianela Ceja is a 68 y.o. female who returns to the neurosurgical clinic today for continued neurosurgical surveillance. The patient is now 1 year and 5 months status post an MIS TLIF L4-5 completed byDr. Cadet on 12/30/2021. She continues to do well. She underwent right shoulder surgery on 02/04/2023 and was having some SI joint discomfort. Since her right shoulder surgery, she has been relatively active but has gone to multiple volleyball a basketball games as well as archery. She states the SI joint pain improved. She currently has no back pain or leg pain today. She was experiencing left hip pain that radiates to the left groin. She was diagnosed with bursitis and underwent an injection3 weeks which provided relief. She is doing well at this time. She is ambulating well without difficulty. She has no concerns or complaints today. She does have history of rheumatoid arthritis for which she takes meloxicam and also uses diclofenac gel. She is thoroughly pleased with the results of surgery. Past Medical History She has a past medical history of Arthritis, Dental disease, Dysphagia, FH: total knee replacement (2019), GERD (gastroesophageal reflux disease), Kidney stones, Motion sickness, Rheumatoid arthritis([facility]), and Rotator cuff tear arthropathy of right shoulder. She has no past medical history of Malignant hyperthermia. Surgical History She has a past surgical history that includes Joint replacement; Hip Arthroplasty; and Spinal fusion (12/30/2021). Family History Family History Problem Relation Name Age of Onset Diabetes Mother Arthritis Other Diabetes Other Hyperlipidemia Other Hypertension Other Social History She reports that she has never smoked. She has never used smokeless tobacco. She reports that she does not drink alcohol and does not use drugs. Medications Current Outpatient Medications Medication Sig Dispense Refill Cetirizine HCl (ZyrTEC ALLERGY) 10 MG capsule if needed. Cyanocobalamin (Vitamin B-12) 2500 MCG sublingual tablet 1 (one) time each day in the morning. diclofenac (Voltaren) 1 % topical gel APPLY 2 GRAMS TOPICALLY 4 TIMES DAILY estradiol (Estrace) 0.1 MG/GM vaginal cream DIRECTED INTRAVGINALLY TWICE A WEEK FOR 30 DAYS gabapentin (Neurontin) 300 MG capsule 2 capsules (600 mg) every night. hydroxychloroquine (Plaquenil) 200 MG tablet Take 1 tablet (200 mg) by mouth 2 (two) times a day. lamoTRIgine (LaMICtal) 150 MG tablet every 12 (twelve) hours. meloxicam (Mobic) 15 MG tablet Take 10 mg by mouth 1 (one) time each day. nitrofurantoin (Macrodantin) 50 MG capsule every night. omeprazole (PriLOSEC) [address] capsule 1 (one) time each day in the morning. oxybutynin XL (Ditropan-XL) 10 MG 24 hr tablet Take 1 tablet (10 mg) by mouth 1 (one) time each dayin the morning. Do not crush, chew, or split. Acetaminophen 500 MG capsule Take 2 capsules (1,000 mg) by mouth every 8 (eight) hours if needed for mild pain or moderate pain. (Patient not taking: Reported on 05/16/2023) 100 capsule 0 ibuprofen 600 MG tablet Take 1 tablet (600 mg) by mouth every 6 (six) hours if needed for mild painor moderate pain. (Patient not taking: Reported on 05/16/2023) 75 tablet 0 naloxone (Kloxxado) 8 mg/0.1 mL nasal spray 1. Give 1 spray in nostril for no/slow breathing or cannot wake after opioid use 2. Call 911 3. Repeat in other nostril if symptoms continue (Patient not taking: Reported on 05/16/2023) 1 each 0 ondansetron (Zofran) 8 MG tablet Take 1 tablet (8 mg) by mouth every 8 (eight) hours if needed for nausea or vomiting. (Patient not taking: Reported on 05/16/2023) 25 tablet 0 senna-docusate (Yudelka-Colace) 8.6-50 MG tablet Take 1 tablet by mouth 1 (one) time each day if needed for constipation (prn constipation while taking pain medications.). (Patient not taking: Reported on 05/16/2023) 50 tablet 0 No current facility-administered medications for this visit. Allergies Patient has no known allergies. Review of Systems 14 point review of systems was performed and was negative except as noted per HPI. General Physical Exam Constitutional Oriented to person, place, and time. Appears well-developed and well-nourished. Head Normocephalic and atraumatic. Eyes Pupils are equal, round, and reactive to light. Neck No tracheal deviation or JVD noted. No previous surgical scars Cardiovascular Minimal to no peripheral edema, intact distal pulses Pulmonary/Chest Effort normal, no shortness of breath Neurological Alert and oriented to person, place, and time Skin Skin is warm and dry Psychiatric Normal mood and affect, behavior and judgment Objective: Last Recorded Vitals Visit Vitals BP (!) 142/80 Resp 18 Ht 1.613 m (5' 3.5 ) Wt 86.5 kg (190 lb 9.6 oz) SpO2 99% BMI 33.23 kg/m?? OB Status Postmenopausal Smoking Status Never BSA 1.97 m?? Labs No lab exists for component: ALB Imaging Lumbar flexion-extension x-ray films were obtained today and personally reviewed by myself and Dr. Cadet. Imaging shows posterior fusion at L4-5. There is no hardware failure or loosening noted. There is no abnormal motion between flexion or extension. Assessment and Plan Marianela Ceja is a 68 y.o. female who is 1 and a half years status post an MIS TLIF at L4-5. She is doing very well today. Her hardware is stable without failure or loosening. She is very pleased with results of surgery. She has no new concerns or complaints. We will see her back at the 2 year feli with repeat flexion- extension x-ray films. The patient is agreeable to plan of care. They had the opportunity to ask questions, all of which were answered to their satisfaction. I reviewed this patient's history, exam, and imaging with Dr. Tarik Cadet. He guided plan of care for this patient. The total [id number] time spent on this visit was greater than 30 minutes, with the majority (>50%) of the time spent in counseling, discussing pathology and management options, and coordination of care. This note was dictated using voice to text software and may contain minor errors. Assessment/Plan Active Problems: There are no active Hospital Problems. Leyla Armas PA-C [facility] Department of Neurosurgery Cosigned by Tarik Cadet MD at 05/17/2023 11:05 AM EDT Associated attestation - Tarik Cadet MD - 05/17/2023 11:05 AM EDT Signature Only I saw and examined the patient with the SHEILA. I agree with the assessment and plan. A substantive portion of care was provided by the SHEILA. documented in this encounter Plan of Treatment Not on file documented as of this encounter Results * XR Lumbar Spine 2 or 3 Views (05/16/2023 1:58 PM EDT) Anatomical Region Laterality Modality Spine, L-spine Digital Radiogra phy Impressions 05/16/2023 3:54 PM EDT No hardware failure or loosening. No abnormal motion. CRITICAL RESULT: ?? No. COMMUNICATION: Per this written report. Drafted by Cyril Stacy MD on 05/16/2023 3:53 PM Final report signed by Cyril Stacy MD on 05/16/2023 3:54 PM Narrative 05/16/2023 3:54 PM EDT CLINICAL INDICATION: low back pain TECHNIQUE: XR LUMBAR SPINE 2 OR 3 VIEWS COMPARISON: 05/10/2022 FINDINGS: L4-5 posterior fusion is redemonstrated. No abnormal motion. Continued disc space narrowing most pronounced at L3-4 and L5-S1. Procedure Note Cyril Stacy MD - 05/16/2023 CLINICAL INDICATION: low back pain TECHNIQUE: XR LUMBAR SPINE 2 OR 3 VIEWS COMPARISON: 05/10/2022 FINDINGS: L4-5 posterior fusion is redemonstrated. No abnormal motion. Continueddisc space narrowing most pronounced at L3-4 and L5-S1. IMPRESSION: No hardware failure or loosening. No abnormal motion. CRITICAL RESULT: No. COMMUNICATION: Per this written report. Drafted by Cyril Stacy MD on 05/16/2023 3:53 PM Final report signed by Cyril Stacy MD on 05/16/2023 3:54 PM Leyla BURGER IMG XR PROCEDURES Final Result documented in this encounter Visit Diagnoses Diagnosis S/P lumbar spinal fusion- Primary Arthrodesis status S/P lumbar spinal fusion Arthrodesis status documented in this encounter Additional Health Concerns Assessment Noted Time A fall risk assessment has been complete d for the patient 05/16/2023 2:17 PM EDT A Body Mass Index follow-up plan has been documented for the patient 05/16/2023 4:11 PM EDT documented as of this encounter Care Teams Public Health Specialist Relationship Specialty Start Date End Date Amber Bedolla APRN [address] [address] PCP - General 07/18/20 Tarik Cadet MD [id number] [place] [address] Surgeon Neurosurgery 05/25/21 documented as of this encounter
--- OUTSIDE RECORDS SUMMARY | 2024-02-08 13:12 | XMS_ITS | Clinical Summary ---
Author Organization [facility] Address [address] [place] [address] Care Team Providers Care Help Desk Agent Name Role Phone ChiomaAmber Antonio PALAFOX Primary Care Provider [phone] Tarik Cadet MD Unavailable [phone] Allergies No known active allergies Medications diclofenac (Voltaren) 1 % topical gel APPLY 2 GRAMS TOPICALLY 4 TIMES DAILY 1 Active lamoTRIgine (LaMICtal) 150 MG tablet every 12 (twelve) hours. 4 Active omeprazole (PriLOSEC) [address] capsule 1 (one) time each day in the morning. 1 Active Cetirizine HCl (ZyrTEC ALLERGY) 10 MG capsule if needed. Active hydroxychloroq uine (Plaquenil) 200 MG tablet Take 1 tablet (200 mg) by mouth 2 (two) times a day. 2 Active Cyanocobalamin (Vitamin B-12) 2500 MCG sublingual tablet 1 (one) time each day in the morning. 2 Active meloxicam (Mobic) 15 MG tablet Take 10 mg by mouth 1 (one) time each day. Active nitrofurantoin (Macrodantin) 50 MG capsule every night. 3 Active estradiol (Estrace) 0.1 MG/GM vaginal cream DIRECTED INTRAVGINALLY TWICE A WEEK FOR 30 DAYS 3 Active gabapentin (Neurontin) 300 MG capsule 2 capsules (600 mg) every night. 3 Active oxybutynin XL (Ditropan-XL) 10 MG 24 hr tablet Take 1 tablet (10 mg) by mouth 1 (one) time each day in the morning. Do not crush, chew, or split. Active naloxone (Kloxxado) 8 mg/0.1 mL nasal spray 1. Give 1 spray in nostril for no/slow breathing or cannot wake after opioid use 2. Call 911 3. Repeat in other nostril if symptoms continue 1 each 3 Active ondansetron (Zofran) 8 MG tablet Take 1 tablet (8 mg) by mouth every 8 (eight) hours if needed for nausea or vomiting. 25 tablet 3 Active senna-docusate (Yudelka-Colace) 8.6-50 MG tablet Take 1 tablet by mouth 1 (one) time each day if needed for constipation (prn constipation while taking pain medications.). 50 tablet 3 Active ibuprofen 600 MG tablet Take 1 tablet (600 mg) by mouth every 6 (six) hours if needed for mild pain or moderate pain. 75 tablet 3 Active Additional Information Patient not taking.Reported on 05/16/2023 Acetaminophen 500 MG capsule Take 2 capsules (1,000 mg) by mouth every 8 (eight) hours if needed for mild pain or moderate pain. 100 capsule 3 Active Additional Information Patient not taking.Reported on 05/16/2023 baclofen (Lioresal) 10 MG tablet Take 1 tablet (10 mg) by mouth if needed. 4 Active Semaglutide,0. 25 or 0.5MG/DOS, (Ozempic, 0.25 or 0.5 MG/DOSE,) 2 MG/3ML solution pen-injector Inject 0.5 mg under the skin 1 (one) time per week. 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 12/30/2021 Rheumatoid arthritis 12/09/2021 Anterolisthesis of lumbar spine 09/28/2021 Overview (09/28/2021): Added automatically from request for surgery [id number] Other spondylosis, lumbosacral region 07/05/2021 Weakness 07/05/2021 Traumatic complete tear of right rotator cuff Herniation of lumbar intervertebral disc 020 GERD (gastroesophageal reflux disease) 9 Family History Medical History Relation Name Comments Diabetes Mother Arthritis Other 1 Diabetes Other 2 Hyperlipidemia Other 3 Hypertension Other 4 Relation Name Status Comments Mother Other 1 Other 2 Other 3 Other 4 Social History Tobacco Use Types Packs/Day Years Used Date Smoking Tobacco: Never Smokeless Tobacco: Never Tobacco Cessation:Counseling Given: Not Answered Alcohol Use Standard Drinks/Week Comments No 0 [...] drink first t mony in the morning (EYE-DUMB WAITER OPERATOR) to steady your nerves or to get rid of a hangover? 0 12/30/2021 CAGE Questionnaire Score 0 022 Comments No Sex and Gender Information Value Date Recorded Sex Assigned at Female 04/06/2021 6:45 PM EST Legal Sex Female 8:19 PM EDT Gender Identity Female 04/06/2021 6:45 PM EST Sexual Orientation Straight 04/06/2021 6: 45 PM EST Last Filed Vital Signs Vital Sign Reading Time Taken Comments Blood Pressure 146/81 10/12/2023 11:00 AM EDT Pulse 78 10/12/2023 11:00 AM EDT Temperature 36.6 ??C (97.9 ??F) 10/12/2023 11:00 AM E DT Respiratory Rate 18 05/16/2023 2:10 PM EDT Oxygen Saturation 98% 10/12/2023 11:00 AM EDT Inhaled Oxygen Concentration - - Weight 79.4 kg (175 lb) 10/12/2023 11:00 AM EDT Height 160 cm (5' 3 ) 10/12/2023 11:00 AM EDT Body Mass Index 31 10/12/2023 11:00 AM EDT Plan of Treatment Health Maintenance Due Date Last Done Comments [facility]-Bone Density Scan 1955 [facility]-Depression Screening 1955 [facility]-Hepatitis C Screening 1955 [facility]-Medicare Annual Wellness (AWV) 1955 [facility]-Infant/Child/Adol SDOH Screenings 1955 [facility]- SDOH Screenings 01/06/1974 [facility]-Adult SDOH Screenings 01/06/1974 CT Colonography 01/06/2001 Colonoscopy 01/06/2001 FIT-DNA 01/06/2001 FIT 01/06/2001 FOBT 01/06/2001 Sigmoidoscopy 01/06/2001 [facility]-Colorectal Cancer Screening 01/06/2001 [facility]-Breast Cancer Screening 01/06/2006 [facility]-Zoster Vaccines (1 of 2) 01/06/2006 [facility]-Pneumococcal Vaccine: 65+ Years (1 of 1 - PCV) 01/06/2021 [id number] Vaccine ( season) 2023 01/19/2021, 04/14/2020, 03/14/2020 [facility]-Influenza Vaccine (#1) 11/06/202312/15, 11/29/2019, 12/20/2018, Additional history exists [facility]-DTaP,Tdap,and Td Vaccines (2 - Td or Tdap) 08/16/2033 08/17/2023 [facility]-Hepatitis A Vaccines Aged Out 12/20/2018, 02/05 No longer eligible based on patient's age to complete this topic [facility]-RSV Vaccine: 60+ Years or Completed 08/17/2023 [facility]-Obesity Intervention Completed 024, 07/05/2023, 07/04/2023, Additional history exists [facility]-HIB Vaccines Aged Out No longer e ligible based on patient's age to complete this topic [facility]-HPV Vaccines Aged Out No longer e ligible based on patient's age to complete this topic [facility]-IPV Vaccines Aged Out No longer e ligible based on patient's age to complete this topic [facility]-Rotavirus Vaccines Aged Out No lo nger eligible based on patient's age to complete this topic Medical Devices Implanted Type Area Human Capital Manager Device Identifier Shelf Expiration Date Model / Serial / Lot [place] All Suture Qfix 2.8mm - [id number] Implanted:Qty : 1 on 02/04/2023 by Shadi Mims MD at [facility] [place] Right: Shoulder [employer] [facility] (Acu[employer]x)-[id number] 09/18/2025 25-2800 / / [id number] [place] Ultra Twinfix 5.5 - [id number] Implanted:Qty : 2 on 02/04/2023 by Shadi Mims MD at [facility] [employer] [facility] ([employer])-[id number] 10/29/2027 [id number] / / [id number] Hip Hip Left: Pelvis Knee Knee Bilateral: Knee Graft Vivigen 5cc - [id number] Implanted:Qty : 1 on 12/30/2021 by Tarik Cadet MD at [facility] N/A: Spine Lumbar [facility]-[id number] 12/03/2022 -[id number] / / [id number] Single Inner Setscrew - [id number] Implanted:Qty : 4 on 12/30/2021 by Tarik Cadet MD at [facility] N/A: Spine Lumbar DePuy Spine [employer] [id number] 12/30/2022 [id number] / / Screw 6.0mm Viper Cfx Fen Xtab 45mm - [id number] Implanted:Qty : 2 on 12/30/2021 by Tarik Cadet MD at [facility] N/A: Spine Lumbar [employer]ine [employer] [id number] 12/30/2022 [id number] / / Screw 7.0mm Viper Cfx Fen Xtab 45mm - [id number] Implanted:Qty : 2 on 12/30/2021 by Tarik Cadet MD at [facility] N/A: Spine Lumbar [employer]ine [employer] [id number] 12/30/2022 [id number] / / Tlif-C Ui 10mm 8deg / - [id number] Implanted:Qty : 1 on 12/30/2021 by Tarik Cadet MD at [facility] N/A: Spine Lumbar [employer]ine [employer] [id number] 01/04/2025 [id number] / / [id number] Kamari Viper2 Lordotic 40mm - [id number] Implanted:Qty : 1 on 12/30/2021 by Tarik Cadet MD at [facility] N/A: Spine Lumbar DePuy Spine [employer] [id number] 12/29/2022 [id number] / / Kamari Viper2 Lordotic 45mm - [id number] Implanted:Qty : 1 on 12/30/2021 by Tarik Cadet MD at [facility] N/A: Spine Lumbar DePuy Spine [employer] [id number] 12/29/2022 [id number] / / Insurance MEDICARE [facility] Advance Directives Documents on File Type Date Recorded Patient Tunnel Drier Operator Expl anation Advance Directives and Living Will 12/30/2021 Care Teams Help Desk Agent Relationship Specialty Start Date End Date Amber Bedolla APRN [address] [address] PCP - General 07/18/20 Tarik Cadet MD [address] [place] [address] Surgeon Neurosurgery 05/25/21
--- OUTSIDE RECORDS SUMMARY | 2024-02-08 13:12 | XMS_ITS | Encounter Summary ---
Author Organization [facility] Address [address] [place] [address] Care Team Providers Care Build Technician Name Role Phone Amber Bedolla VIVIENNE Primary Care Provider [phone] Tarik Cadet MD Unavailable [phone] Reason for Referral * Consultation (Routine) - Authorized Specialty Diagnoses / Procedures Referred By Contremi t Referred To Contact Physical Therapy Diagnoses S/P rotator cuff repair Shadi Mims MD [address] [place] [address] Phone: tel: fax: Referral ID Status Reason Start Date Expiration Date Visits Requested Visits Authorized [id number] Authorized Consult and Treat 05/17/2023 11/15/2024 1 1 Reason for Visit * Reason Comments Follow-up Encounter Details Date Type Department Care Team (Late st Contact Info) Description 05/17/2023 3:30 PM EDT Office Visit [facility] [address], [address] [place] [address] Shadi Mims MD [address] [place] [address] S/P rotator cuff repair (Primary Dx) Social History Tobacco Use Types [...] drink first t mony in the morning (EYE-WIRE SPOOLER) to steady your nerves or to get [...] Sign Reading Time Taken Comments Blood Pressure 132/75 05/17/2023 2:33 PM EDT Pulse 95 05/17/2023 2:33 PM EDT Temperature - - Respiratory Rate - - Oxygen Saturation 97% 05/17/2023 2:33 PM EDT Inhaled Oxygen Concentration - - Weight 86.2 kg (190 lb) 05/17/2023 2:33 PM EDT Height 161.3 cm (5' 3.5 ) 05/17/2023 2:33 PM EDT Body Mass Index 33.13 05/17/2023 2:33 PM EDT documented in this encounter Miscellaneous Notes * Progress Notes - Shadi Mims MD - 05/17/2023 3:30 PM EDT History of present illness: Marianela Ceja is a 68 y.o. female who is over 3 months status post right shoulder arthroscopy with repair of a massive rotator cuff tear and biceps tenodesis. She is doing very well. Her function is improving and her pain is minimal. I have reviewed the patients History including the Past Medical , Surgical, Family and Social History as well as Medications and Allergies. Physical Exam: Portals are well healed. She can actively elevate 160??, externally rotates 60??, internally rotate to T10. She has mild weakness in mid range elevation. She has mild weakness to external rotation. She can perform a lift-off. She is neurovascular intact distally. Assessment and Plan: She is doing very well. She will continue to work on and range of motion and progress her rotator cuff and periscapular strengthening. She has not to do any significant lifting with her right arm. We will see her back in about 6 weeks for re-evaluation. documented in this encounter Plan of Treatment Scheduled Referrals Name Type Priority Associated Diagnoses Order Schedule Physical Therapy (outgoing) Outpatient Referral Routine S/P rotator cuff repair 1 Occurrences starting 05/17/2023 until 11/16/2024 documented as of this encounter Visit Diagnoses Diagnosis S/P rotator cuff repair- Primary documented in this encounter Additional Health Concerns Assessment Noted Time A fall risk assessment has been complete d for the patient 05/16/2023 2:17 PM EDT A Body Mass Index follow-up plan has been documented for the patient 05/17/2023 5:38 PM EDT documented as of this encounter Care Teams Build Technician Relationship Specialty Start Date End Date Amber Bedolla APRN [facility] [address] PCP - General 07/18/20 Tarik Cadet MD [address] [place] [id number] Surgeon Neurosurgery 05/25/21 documented as of this encounter
--- OUTSIDE RECORDS SUMMARY | 2024-02-08 13:12 | XMS_ITS | Encounter Summary ---
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 procedure; Anterolisthesis of lumbar spine; DDD (degenerative disc disease), lumbar; Spondylolisthesis of lumbar region Social History Tobacco Use Types Packs/Day Years [...] drink first t mony in the morning (EYE-TEACHER OF THE HEARING IMPAIRED) to steady your nerves or to get [...] as of this encounter Results * XR Scoliosis Entire [...] Bilateral low back pain without sciatica, unspecified chronicity- Primary Lumbar spinal stenosis due to adjacent segment disease after fusion procedure Anterolisthesis of lumbar spine DDD (degenerative disc disease), lumbar Degeneration of lumbar or lumbosacral intervertebral disc Spondylolisthesis of lumbar region Bilateral low back pain without sciatica, unspecified [...] documented as of this encounter Care Teams Steam Table Worker Relationship Specialty Start Date End Date Amber Bedolla APRN [address] [address] PCP - General 07/18/20 Tarik Cadet MD [address] [address] Surgeon Neurosurgery 05/25/21 documented as of this encounter
--- OUTSIDE RECORDS SUMMARY | 2024-02-08 13:12 | XMS_ITS | Encounter Summary ---
Author Organization [facility] Address [address] [place] [address] Care Team Providers Care Corporation Secretary Name Role Phone ChiomaAmber barrios Antonio PALAFOX Primary Care Provider +1- [phone] Tarik Cadet MD Unavailable [phone] Encounter Details Date Type Department Care Team (Latest Contact Info) Description 07/05/2023 Travel Social History Tobacco Use Types Packs/Day [...] drink first t mony in the morning (EYE-NET LEAD ARCHITECT) to steady your nerves or to get [...] documented as of this encounter Care Teams Corporation Secretary Relationship Specialty Start Date End Date Amber Bedolla APRN [address] [id number] PCP - General 07/18/20 Tarik Cadet MD [id number] [place] [address] Surgeon Neurosurgery 05/25/21 documented as of this encounter
--- OUTSIDE RECORDS SUMMARY | 2024-02-08 13:12 | XMS_ITS | Encounter Summary ---
Author Organization [facility] Address [address] [place] [address] Care Team Providers Care Records Management Assistant Name Role Phone Amber Bedolla VIVIENNE Primary Care Provider [phone]- [phone] Tarik Cadet MD Unavailable [phone] Reason for Referral * Imaging (Routine) - Authorized Specialty Diagnoses / Procedures Referred By Contac t Referred To Contact Diagnoses S/P lumbar spinal fusion Bilateral low back pain without sciatica, unspecified chronicity Lumbar spinal stenosis due to adjacent segment disease after fusion procedure Procedures CT Lumbar Spine wo IV Contrast Leyla Armas PA [id number] [place] [address] Phone: tel: fax: Referral ID Status Reason Start Date Expiration Date V isits Requested Visits Authorized [id number] Authorized 07/04/2023 01/02/2025 1 1 Reason for Visit * Reason Comments Follow-up Encounter Details Date Type Department Care Team (Late Contact Info) Description 07/04/2023 9:15 AM EDT Office Visit [place] [facility] [address] [place] [address] Tarik Cadet MD [id number] [place] [address] S/P lumbar spinal fusion (Primary Dx); Bilateral [...] drink first t mony in the morning (EYE-ETCHER PRINTED CIRCUIT BOARDS) to steady your nerves or to get [...] Sign Reading Time Taken Comments Blood Pressure 133/91 07/04/2023 9:32 AM EDT Pulse - - Temperature - - Respiratory Rate - - Oxygen Saturation - - Inhaled Oxygen Concentration - - Weight 86.2 kg (190 lb) 07/04/2023 9:32 AM EDT Height 160 cm (5' 3 ) 07/04/2023 9:32 AM EDT Body Mass Index 33.66 07/04/2023 9:32 AM EDT documented in this encounter Miscellaneous Notes * Progress Notes - Leyla Armas PA - 07/04/2023 9:15 AM EDT We had the pleasure of seeing your patient in our clinic today for Neurosurgical consultation. I personally reviewed approximately 3 pages of new patient referral paperwork that was sent to the clinic. Chief Complaint Low back pain and left lower extremity pain, status post MIS TLIF L4-5 in December 2021. History Of Present Illness Marianela Ceja is a 68 y.o. female who follows up today for continued neurosurgical surveillance. The patient is now 1-1/2 years status post MIS TLIF L4-[address] Cadet on 12/30/2021. She has done very well postoperatively; however, over the last month, she has had increasing symptoms of axial low back pain and left lower extremity pain. The pain radiates from her back to the left hip and down the front of her thigh to her knee. She reports history of bilateral total knee replacements, left hip replacement, and right shoulder surgery. Symptoms are exacerbated with walking. She has difficulty walking for extended periods of time and must sit to continue walking further. She was evaluated by her orthopedist who did x-rays of her left hip and diagnosed with bursitis. She was given an injection in the left hip which did help with the bursitis discomfort but denies relief of leg pain. She states that she has difficulty performing activities of daily living, such as mowing. She has worked with a massage therapist with only temporary relief. She takes meloxicam, gabapentin, Flexeril on occasion, and uses diclofenac gel. She denies any significant positional benefit. She was given ataper of prednisone 2 weeks ago which helped during treatment only. She denies bowel or bladder incontinence. She is a nonsmoker. She has had a couple of falls. She states she is ultimately interested in definitive treatment if indicated. Past Medical History She has a past medical history of Arthritis, Dental disease, Dysphagia, FH: total knee replacement (2018), GERD (gastroesophageal reflux disease), Kidney stones, Left leg pain, Lower back pain, Motion sickness, Rheumatoid arthritis (CMS/HCC), and Rotator cuff tear arthropathy of right [...] was negative except as noted per HPI. PHYSICAL EXAMINATION GENERAL: The patient is a pleasant female in no apparent distress. General Physical Exam Constitutional Oriented to person, [...] mood and affect, behavior and judgment Objective: MUSCULOSKELETAL EXAM: Motor Strength Right Left L2: Hip flexion (Iliopsoas) 5/5 5/5 L3: Knee extension (Quad) 5/5 5/5 L4: Ankle DF (TA) 5/5 5/5 L5: Great Toe DF (EHL) 5/5 5/5 S1: Ankle Pf, Foot Eversion (Peroneal longus/brevis) 5/5 5/5 S2: Great toe flexion (FHL), Knee flexion 5/5 5/5 Sensation Right Left L2: Proximal anterior thigh Normal Normal L3: Mid anterior thigh Normal Normal L4: Medial leg/foot, great toe (Saphenous n.) Normal Normal L5: Dorsum of mid foot Normal Normal S1: Lateral leg/foot, little toe, Back of leg (Sural n.) Normal Normal Reflexes Right Left L4: Patellar 0/4 0/4 S1: Achilles 1/4 1/4 Babinski Absent Absent Clonus 0 0 Positive SLR on the left Negative Wes's BL Negative Karla's BL Last Recorded Vitals Visit Vitals BP (!) 133/91 Ht 1.6 m (5' 3 ) Wt 86.2 kg (190 lb) BMI 33.66 kg/m?? OB Status Postmenopausal Smoking Status Never BSA 1.96 m?? Labs No lab exists for component: ALB Imaging MRI of the lumbar spine dated 07/01/2023 was personally reviewed today by myself and Dr. Cadet. Imaging demonstrates postoperative changes at L4-5 with good decompression. There is adjacent segment disease at L3-4 resulting in left-sided lateral recess stenosis and neuroforaminal stenosis. Lumbar flexion-extension films were negative for dynamic instability. Assessment and Plan Marianela Ceja is a 68 y.o. female who follows up today for continued neurosurgical surveillance where she is now 1-1/2 years status post MIS TLIF L4-5. Over the past month, she has had recurrent low back pain and left lower extremity pain in an L3-4 dermatomal distribution. MRI imaging shows adjacent segment disease at L3-4, [id number]-right. Symptoms have been refractory to medical management. We are recommending physical therapy. We will also make a referral to Interventional pain management for injection therapy on the left at L3-4. We will have the patient return to clinic in 6-8 weeks for continued surveillance. If the patient fails to respond to further conservative treatment therapies, she may benefit from fusion extension to include L3-4. The patient is agreeable to plan of care. They had the opportunity to ask questions, all of which were answered to their satisfaction. I reviewed this patient's history, exam, and imaging with Dr. Tarik Cadet. He guided plan of care for this patient. The total [id number] time spent on this visit was greater than 30 minutes, with the ma jority (>50%) of the time spent in counseling, discussing pathology and management options, and coordination of care. This note was dictated using voice to text software and may contain minor errors. Assessment/Plan Active Problems: There are no active Hospital Problems. Leyla Armas PA-C [facility] [place] Department of Neurosurgery Cosigned by Tarik Cadet MD at 07/05/2023 4:48 PM EDT Associated attestation - Tarik Cadet MD - 07/05/2023 4:48 PM EDT Signature Only I saw and examined the patient with the SHEILA. I agree with the assessment and plan. A substantive portion of care was provided by the SHEILA. documented in this encounter Plan of Treatment Scheduled Orders Name Type Priority Associated Diagnoses Orde r Schedule CT Lumbar Spine wo IV Contrast Imaging Routine S/P lumbar spinal fusion Bilateral low back pain without sciatica, unspecified chronicity Lumbar spinal stenosis due to adjacent segment disease after fusion procedure Expected: 07/04/2023 (Approximate), Expires: 01/03/2025 documented as of this encounter Results * XR Scoliosis Entire Spine 2 or 3 Views (07/04/2023 9:24 AM EDT) Anatomical Region Laterality Modality Spine Digital Radiogra phy Impressions 07/04/2023 9:37 AM [...] at L2-L3 and posterior subluxation at L3- Y3ntblkfy instability. 4.Severe degenerative disc changes at C5-C6 and T8-T9. CRITICAL RESULT: No. COMMUNICATION: Per this written report. Drafted by Robert Pepe MD on 07/04/2023 9:33 AM Final report signed by Robert Pepe MD on 07/04/2023 9:37 AM Leyla BURGER IMG XR PROCEDURES Final Result * XR Lumbar Spine 2 or 3 [...] at L2-L3 and posterior subluxation at L3- C8hpmrhtu instability. 4.Severe degenerative disc changes at C5-C6 [...] to adjacent segment disease after fusion procedure S/P lumbar spinal fusion Arthrodesis status S/P lumbar spinal fusion Arthrodesis status documented in this encounter Additional Health Concerns Assessment Noted Time A fall risk assessment has been complete d for the patient 07/04/2023 9:35 AM EDT A Body Mass Index follow-up plan has been documented for the patient 07/04/2023 10:39 AM EDT documented as of this encounter Care Teams Records Management Assistant Relationship Specialty Start Date End Date Amber Bedolla APRN [address] [place] [address] PCP - General 07/18/20 Tarik Cadet MD [address] [facility] [address] [place] [address] Surgeon Neurosurgery 05/25/21 documented as of this encounter
--- OUTSIDE RECORDS SUMMARY | 2024-02-08 13:12 | XMS_ITS | Encounter Summary ---
Author Organization [facility] Address [address] [place] [address] Care Team Providers Care Solid Waste Collection Worker Name Role Phone ChiomaAmber barrios Antonio PALAFOX Primary Care Provider [phone]- [phone] Tarik Cadet MD Unavailable [phone] Encounter Details Date Type Department Care Team (Latest Contact Info) Description 05/16/2023 Travel Social History Tobacco Use Types Packs/Day [...] drink first t mony in the morning (EYE-NATURAL RESOURCES ENGINEER) to steady your nerves or to [...] documented as of this encounter Care Teams Solid Waste Collection Worker Relationship Specialty Start Date End Date Amber Bedolla APRN [address] [id number] PCP - General 07/18/20 Tarik Cadet MD [id number] [place] [address] Surgeon Neurosurgery 05/25/21 documented as of this encounter
--- OUTSIDE RECORDS SUMMARY | 2024-02-08 13:12 | XMS_ITS | Encounter Summary ---
Author Organization [facility] Address [address] [place] [address] Care Team Providers Care Wash Mill Operator Name Role Phone ChiomaAmber barrios Antonio PALAFOX Primary Care Provider [phone]- [phone] Tarik Cadet MD Unavailable [phone] Encounter Details Date Type Department Care Team (Latest Contact Info) Description 07/04/2023 Travel Social History Tobacco Use Types Packs/Day [...] drink first t mony in the morning (EYE-MACHINE TOOL ELECTRICIAN) to steady your nerves or to get [...] documented as of this encounter Care Teams Wash Mill Operator Relationship Specialty Start Date End Date Amber Bedolla APRN [address] [place] [address] PCP - General 07/18/20 Tarik Cadet MD [id number] [place] [address] Surgeon Neurosurgery 05/25/21 documented as of this encounter
--- OUTSIDE RECORDS SUMMARY | 2024-02-08 13:12 | XMS_ITS | Encounter Summary ---
Author Organization [facility] Address [address] [id number] Care Team Providers Care Corrosion Control Specialist Name Role Phone Amber Bedolla VIVIENNE Primary Care Provider [phone]- [phone] Tarik Cadet MD Unavailable [phone] Reason for Visit * Reason Comments Scoliosis Encounter Details Date Type Department Care Team (Late st Contact Info) Description 10/12/2023 11:20 AM EDT Office Visit [place] [facility] [address] [place] [address] Tarik Cadet MD [address] [place] [address] Lumbar spinal stenosis due to adjacent segment disease after fusion procedure (Primary Dx) Social History Tobacco Use Types [...] drink first t mony in the morning (EYE-ROUTEMAN) to steady your nerves or to get [...] 10/12/2023 11:00 AM E DT Respiratory Rate - - Oxygen Saturation 98% 10/12/2023 11:00 AM EDT Inhaled Oxygen Concentration - - Weight 79.4 kg (175 lb) 10/12/2023 11:00 AM EDT Height 160 cm (5' 3 ) 10/12/2023 11:00 AM EDT Body Mass Index 31 10/12/2023 11:00 AM EDT documented in this encounter Miscellaneous Notes * Progress Notes - Tarik Cadet MD - 10/12/2023 11:20 AM EDT HPI: Nory Ceja is a 68 y.o. female who is 2 years status post L4-5 MIS TLIF. She has known adjacent segment disease at L3-4. This at her last appointment was associated with left anterior thigh pain. Since her last visit she has undergone 5 weeks of physical therapy including heat, ultrasound, and ice, which did not provide significant relief. She underwent L5-S1 epidural injection which did not provide any relief. She also underwent an L3-4 injection which was painful at 1st but provided substantial reduction in pain afterwards. She still is feeling the benefit of this injection. She also is concerned about bursitis of the left hip as well as left SI joint pain. The pain in the SI joint is a constant 2/10. Review of systems. 14 Point ROS performed. Noncontributory except as indicated above-form completedby patient, reviewed and placed in chart. ? Physical Exam: Awake alert and well appearing Strength full in all extremities. Left iliopsoas is limited due to pain Tender to palpation over the left hip Tender to palpation over the SI joint on the left. Incisions well healed ? Imaging: Lumbar x-rays show stable instrumentation Assessment: Nory Ceja is 2 years status post L4-5 MIS TLIF with known adjacent segment disease at L3-4. Her symptoms from her L3-4 adjacent segment disease appear to be well controlled with epidural steroid injections at this level. She also has known left hip bursitis and appears to have some SI joint pain. She is interested in further conservative measures for these and would like to follow- up in 3 months to assess progress. ? I personally spent a total of 30 minutes on this encounter. This time includes face to face with patient, counseling and discussion and/or coordination of care. I spent >50% in phaq-qx-qfnr communication with the patient over the diagnosis, treatment options and plan. Tarik Cadet MD [place] Dental Appliance Fixer of Neurosurgery Complex and Minimally Invasive Spine Surgery [address] [address] [place], [phone] documented in this encounter Plan of Treatment Not on file documented as of this encounter Visit Diagnoses Diagnosis Lumbar spinal stenosis due to adjacent segment disease after fusion procedure- Primary documented in this encounter Additional Health Concerns Assessment Noted Time A fall risk assessment has been complete d for the patient 10/12/2023 11:00 AM EDT A Body Mass Index follow-up plan has been documented for the patient 10/12/2023 12:22 PM EDT documented as of this encounter Care Teams Corrosion Control Specialist Relationship Specialty Start Date End Date Amber Bedolla APRN [address] [facility] [address] [place] [address] PCP - General 07/18/20 Tarik Cadet MD [address] [place] [address] Surgeon Neurosurgery 05/25/21 documented as of this encounter
--- OUTSIDE RECORDS SUMMARY | 2024-02-08 13:12 | XMS_ITS | Encounter Summary ---
Author Organization Healthcare Address [address] [place] [address] Care Team Providers Care Pipeline Gang Supervisor Name Role Phone Amber Bedolla VIVIENNE Primary Care Provider [phone]- [phone] Tarik Cadet MD Unavailable [phone] Encounter Details Date Type Department Care Team (Late st Contact Info) Description 07/07/2023 Telephone [place] [facility] [address] [place] [address] Tarik Cadet MD [address] [facility] [address] [place] [address] Social History Tobacco Use Types Packs/Day Years [...] drink first t mony in the morning (EYE-GREEN MARKETING ANALYST) to steady your nerves or to get rid of a hangover? 0 12/30/2021 CAGE Questionnaire Score 0 022 Comments No Sex and Gender Information Value Date Recorded Sex Assigned at Female 04/06/2021 6:45 PM EST Legal Sex Female 8:19 PM EDT Gender Identity Female 04/06/2021 6:45 PM EST Sexual Orientation Straight 04/06/2021 6: 45 PM EST documented as of this encounter Miscellaneous Notes * Telephone Encounter - Zoila Gardner - 07/07/2023 11:40 AM EDT Patient Phone Message Reason for Call: Pt is calling and states that Dr Peter's office has not received the referral please fax to [phone]. Please advise. Best contact number and optimal time of day to reach caller: [phone] Note: Please do not reply to this message. Follow-up communication and further actions as a result of this message need to be communicated with the patient directly, if the patient is not active onMyChart. If the patient is active on MyChart, they will receive notification of the communication/outcome via Miaoyushang. documented in this encounter Plan of Treatment [...] documented as of this encounter Care Teams Pipeline Gang Supervisor Relationship Specialty Start Date End Date Amber Bedolla APRN [address] [facility] [address] [place] [address] PCP - General 07/18/20 Tarik Cadet MD [address] [facility] [address] [place] [address] Surgeon Neurosurgery 05/25/21 documented as of this encounter
--- OUTSIDE RECORDS SUMMARY | 2024-02-08 13:12 | XMS_ITS | Encounter Summary ---
Author Organization [facility] Address [address] [place] [address] Care Team Providers Care Tentering Machine Feeder Name Role Phone ChiomaAmber barrios Antonio PALAFOX Primary Care Provider [phone]- [phone] Tarik Cadet MD Unavailable [phone] Encounter Details Date Type Department Care Team (Latest Contact Info) Description 05/17/2023 Travel Social History Tobacco Use Types Packs/Day [...] drink first t mony in the morning (EYE-PRETZEL PACKER) to steady your nerves or to get [...] documented as of this encounter Care Teams Tentering Machine Feeder Relationship Specialty Start Date End Date Amber Bedolla APRN [address] [id number] PCP - General 07/18/20 Tarik Cadet MD [id number] [place] [address] Surgeon Neurosurgery 05/25/21 documented as of this encounter
--- OUTSIDE RECORDS SUMMARY | 2024-02-08 13:12 | XMS_ITS | Encounter Summary ---
Author Organization Healthcare Address [address] [place] [address] Care Team Providers Care Hydro Mechanic Name Role Phone ChiomaAmber Antonio PALAFOX Primary Care Provider [phone]- [phone] Tarik Cadet MD Unavailable [phone] Encounter Details Date Type Department Care Team (Late st Contact Info) Description 07/01/2023 Orders Only External Location [address] [place] [address] Provider, External Social History Tobacco Use Types Packs/Day Years [...] drink first t mony in the morning (EYE-OPHTHALMOLOGIST) to steady your nerves or to get [...] Procedure Name Priority Date/Time Associated Diagnosis Comments MR NEURO OUTSIDE IMAGES 07/01/2023 8:45 AM EDT documented in this encounter Results * MR NEURO OUTSIDE IMAGES (07/01/2023 8:45 AM EDT) Anatomical Region Laterality Modality Magnetic Resonan ce 07/01/2023 8:45 AM EDT us External Provider IMG MRI PROCEDURES Final Resul t documented in this encounter Visit Diagnoses Not on filedocumented in this encounter Additional Health Concerns Assessment Noted Time A fall risk assessment has been complete d for the patient 05/16/2023 2:17 PM EDT A Body Mass Index follow-up plan has been documented for the patient 05/17/2023 5:38 PM EDT documented as of this encounter Care Teams Hydro Mechanic Relationship Specialty Start Date End Date Amber Bedolla APRN [address] [id number] PCP - General 07/18/20 Tarik Cadet MD [id number] [place] [address] Surgeon Neurosurgery 05/25/21 documented as of this encounter
--- OUTSIDE RECORDS SUMMARY | 2024-02-08 13:12 | XMS_ITS | Encounter Summary ---
Author Organization [facility] Address [address] [place] [address] Care Team Providers Care Field Representative/Health Education Name Role Phone ChiomaAmber Antonio PALAFOX Primary Care Provider [phone]- [phone] Tarik Cadet MD Unavailable [phone] Encounter Details Date Type Department Care Team (Latest Contact Info) Description 05/16/2023 1:39 PM EDT - 05/16/2023 11:59 PM EDT [facility] En[facility] [address] [place] [address] S/P lumbar spinal fusion Discharge [...] drink first t mony in the morning (EYE-HORTICULTURAL FARMER) to steady your nerves or to get [...] LUMBAR SPINE 2 OR 3 VIEWS Routine 05/16/2023 1:58 PM EDT S/P lumbar spinal fusion documented in [...] documented as of this encounter Care Teams Field Representative/Health Education Relationship Specialty Start Date End Date Amber Bedolla APRN [address] [address] PCP - General 07/18/20 Tarik Cadet MD [id number] [place] [address] Surgeon Neurosurgery 05/25/21 documented as of this encounter
--- OUTSIDE RECORDS SUMMARY | 2024-02-08 13:12 | XMS_ITS | Encounter Summary ---
Author Organization [facility] Address [address] [place] [address] Care Team Providers Care Medical Claims Processor Name Role Phone Amber Bedolla VIVIENNE Primary Care Provider [phone]- [phone] Tarik Cadet MD Unavailable [phone] Reason for Visit * Reason Comments Follow-up Encounter Details Date Type Department Care Team (Late st Contact Info) Description 07/05/2023 2:50 PM EDT Office Visit [facility] [address] [facility], [address] [place] [address] Shadi Mims MD [address] [facility] [address] [place] [address] S/P rotator cuff repair (Primary [...] drink first t mony in the morning (EYE-AERIAL ERECTOR) to steady your nerves or to get [...] Sign Reading Time Taken Comments Blood Pressure 136/79 07/05/2023 2:40 PM EDT Pulse - - Temperature - - Respiratory Rate - - Oxygen Saturation - - Inhaled Oxygen Concentration - - Weight 86.2 kg (190 lb) 07/05/2023 2:40 PM EDT Height 161.3 cm (5' 3.5 ) 07/05/2023 2:40 PM EDT Body Mass Index 33.13 07/05/2023 2:40 PM EDT documented in this encounter Miscellaneous Notes * Progress Notes - Shadi Mims MD - 07/05/2023 2:50 PM EDT History of present illness: Marianela Ceja is a 68 y.o. female who returns for evaluation of her right shoulder. She is 5 months status post repair of a massive rotator cuff tear. She is very pleased with her progress. She still has some weakness but her pain is virtually gone and her function continues to improve. I have reviewed the patients History including the Past Medical , Surgical, Family and Social History as well as Medications and Allergies. Physical Exam: Portals are well healed. She has full active range of motion without any significantdyskinesia. She has mild weakness of her rotator cuff. She can perform a lift-off. She has negativespeed's and Yergason's. She is neurovascular intact distally. Assessment and Plan: She is doing very well given the size of her tear. She will continue to work on general strengthening. In 1 month she can start progressing back into normal activities without restrictions. At this point she is doing well enough that she would like to return on an as-needed basis. documented in this encounter Plan of Treatment [...] documented as of this encounter Care Teams Medical Claims Processor Relationship Specialty Start Date End Date Amber Bedolla APRN [facility] [place] [address] PCP - General 07/18/20 Tarik Cadet MD [address] [facility] [address] [place] [address] Surgeon Neurosurgery 05/25/21 documented as of this encounter
--- OUTSIDE RECORDS SUMMARY | 2024-02-08 13:12 | XMS_ITS | Encounter Summary ---
Author Organization Healthcare Address [address] [place] [address] Care Team Providers Care Farm Planner Name Role Phone ChiomaAmber Antonio PALAFOX Primary Care Provider [phone]- [phone] Tarik Cadet MD Unavailable [phone] Encounter Details Date Type Department Care Team (Latest Contact Info) Description 07/04/2023 9:00 AM EDT - 07/04/2023 11:59 PM EDT Hospital En[facility] [address], [address] [place] [address] S/P lumbar spinal fusion Discharge [...] drink first t mony in the morning (EYE-C++ PROFESSOR) to steady your nerves or to get [...] ENTIRE SPINE 2 OR 3 VIEWS Routine 07/04/2023 [...] at L2-L3 and posterior subluxation at L3- [id number] instability. 4.Severe degenerative disc changes at C5-C6 [...] documented as of this encounter Care Teams Farm Planner Relationship Specialty Start Date End Date Amber Bedolla APRN [address] [place] [address] PCP - General 07/18/20 Tarik Cadet MD [address] [address] Surgeon Neurosurgery 05/25/21 documented as of this encounter
--- OUTSIDE RECORDS SUMMARY | 2024-02-08 13:13 | XMS_ITS | Encounter Summary ---
Author Organization [facility] Address [address] [id number] Care Team Providers Care Bed Control Specialist Name Role Phone Amber Bedolla VIVIENNE Primary Care Provider [phone]- [phone] Tarik Cadet MD Unavailable Reason for Visit * Reason Onset Date Comments HCN - Patient Message 12/30/2022 Reschedule Encounter Details Date Type Department Care Team (Late st Contact Info) Description 12/30/2022 Telephone [place] [facility] [address], [address] [place] [address] Tarik Cadet MD [address] [place] [address] HCN - Patient Message (Reschedule ) Social History Tobacco Use Types Packs/Day Years [...] drink first t mony in the morning (EYE-CONSULTING BUSINESS DEVELOPER) to steady your nerves or to get [...] encounter Miscellaneous Notes * Telephone Encounter - Nguyen Avila - 12/30/2022 12:13 PM EDT Patient Phone Message Reason for Call: Please reschedule upcoming appt and patient is either requesting Jan or Mar due to she is having shoulder surgery in Feb. Best contact number and optimal time of day to reach caller: [phone] anytime Note: Please do not reply to this message. Follow-up communication and further actions as a result of this message need to be communicated with the patient directly, if the patient is not active onMyChart. If the patient is active on MyChart, they will receive notification of the communication/outcome via FriendCode. documented in this encounter Plan of Treatment Not on file documented as of this encounter Visit Diagnoses Not on filedocumented in this encounter Additional Health Concerns Assessment Noted Time A fall risk assessment has been complete d for the patient 12/14/2022 1:02 PM EDT A Body Mass Index follow-up plan has been documented for the patient 12/15/2022 3:27 PM EDT documented as of this encounter Care Teams Bed Control Specialist Relationship Specialty Start Date End Date Amber Bedolla APRN [address] [place] [address] PCP - General 07/18/20 Tarik Cadet MD [id number] [place] [address] Surgeon Neurosurgery 05/25/21 documented as of this encounter
--- OUTSIDE RECORDS SUMMARY | 2024-02-08 13:13 | XMS_ITS | Encounter Summary ---
Author Organization [facility] Address [address] [place] [address] Care Team Providers Care Scholarship Counselor Name Role Phone ChiomaAmber Antonio PALAFOX Primary Care Provider [phone]- [phone] Tarik Cadet MD Unavailable [phone] Encounter Details Date Type Department Care Team (Latest Contact Info) Description 11/23/2022 8:50 AM EDT - 11/23/2022 11:59 PM EDT Hospital Encounter [facility] [address] [facility], [address] [place] [address] Acute pain of right shoulder Discharge Disposition: Home or Self Care Social [...] drink first t mony in the morning (EYE-JANITOR AND CLEANER) to steady your nerves or to get [...] this encounter Medications at Time of Discharge Cetirizine HCl (ZyrTEC ALLERGY) 10 MG capsule [...] mouth 2 (two) times a day. 02/15/2022 lamoTRIgine (LaMICtal) 150 MG tablet every 12 (twelve) hours. 05/09/2013 meloxicam (Mobic) 15 MG tablet Take 10 mg by mouth 1 (one) time each day. nitrofurantoin (Macrodantin) 50 MG capsule every night. 11/03/2022 omeprazole (PriLOSEC) [address] capsule 1 (one) time each day in the morning. 04/07/2020 ibuprofen 600 MG tablet 01/05/2022 3 Symbicort 160-4.5 MCG/ACT inhaler Inhale 2 puffs. 11/16/2022 4 documented as of this encounter Plan of Treatment Not on file documented as of this encounter Procedures Procedure Name Priority Date/Time Associated Diagnosis Comments XR SHOULDER RIGHT 2+ VIEWS Routine 11/23/2022 9:01 AM EDT Acute pain of right shoulder documented in this encounter Results * XR Shoulder Right 2+ Views (11/23/2022 9:01 AM EDT) Anatomical Region Laterality Modality Upper Extremities, Shoulder Right Digi leidy Radiography Impressions 11/23/2022 9:07 AM EDT Unchanged sequelae of chronic rotator cuff tear. CRITICAL RESULT: ?? No. COMMUNICATION: Per this written report. Drafted by Robert Pepe MD on 11/23/2022 9:06 AM Final report signed by Robert Pepe MD on 11/23/2022 9:07 AM Narrative 11/23/2022 9:07 AM EDT CLINICAL INDICATION: pain TECHNIQUE: XR SHOULDER RIGHT 2+ VIEWS COMPARISON: April 16, 2021 FINDINGS: 3 views of the right shoulder show narrowing of the humeral acromial space. Glenohumeral joint space and alignment are normal with minimal degenerative changes in the anterior rim of the glenoid. No findings of fracture, osteonecrosis or osseous neoplasm. Adjacent lung and chest wall are normal. Procedure Note Robert Pepe MD - 11/23/2022 CLINICAL INDICATION: pain TECHNIQUE: XR SHOULDER RIGHT 2+ VIEWS COMPARISON: April 16, 2021 FINDINGS: 3 views of the right shoulder show narrowing of the humeral acromialspace. Glenohumeral joint space and alignment are normal with minimaldegenerative changes in the anterior rim of the glenoid. No findings offracture, osteonecrosis or osseous neoplasm. Adjacent lung and chest wallare normal. IMPRESSION: Unchanged sequelae of chronic rotator cuff tear. CRITICAL RESULT: No. COMMUNICATION: Per this written report. Drafted by Robert Pepe MD on 11/23/2022 9:06 AM Final report signed by Robert Pepe MD on 11/23/2022 9:07 AM Shadi Mims MD IMG XR PROCEDURES Final Result documented in this encounter Visit Diagnoses Diagnosis Acute pain of right shoulder documented in this encounter Additional Health Concerns Assessment Noted Time A fall risk assessment has been complete d for the patient 11/23/2022 8:46 AM EDT A Body Mass Index follow-up plan has been documented for the patient 11/23/2022 5:10 PM EDT documented as of this encounter Care Teams Scholarship Counselor Relationship Specialty Start Date End Date Amber Bedolla APRN [address] [address] PCP - General 07/18/20 Tarik Cadet MD [address] [place] [address] Surgeon Neurosurgery 05/25/21 documented as of this encounter
--- OUTSIDE RECORDS SUMMARY | 2024-02-08 13:13 | XMS_ITS | Encounter Summary ---
Author Organization [facility] Address [address] [place] [address] Care Team Providers Care Stereo Equipment Salesperson Name Role Phone ChiomaAmber Antonio PALAFOX Primary Care Provider [phone] Tarik Cadet MD Unavailable [phone] Encounter Details Date Type Department Care Team (Latest Contact Info) Description 02/22/2022 2:08 PM EST - 02/22/2022 11:59 PM EST Hospital En[facility] [address], 1st [place] [address] S/P lumbar spinal fusion Discharge [...] drink first t mony in the morning (EYE-BOILER PLANT OPERATOR) to steady your nerves or to get rid of a hangover? 0 12/30/2021 CAGE Questionnaire Score 0 022 Comments No Sex and Gender Information Value Date Recorded Sex Assigned at Female 04/06/2021 6:45 PM EST Legal Sex Female 8:19 PM EDT Gender Identity Female 04/06/2021 6:45 PM EST Sexual Orientation Straight 04/06/2021 6: 45 PM EST COVID-19 Exposure Response Date Recorded In the last 10 days, have yo u been in contact with someone who was confirmed or suspected to have Coronavirus/COVID-19? No / Unsure 02/22/2022 2:07 PM EST documented as of this encounter Medications at Time of Discharge Cetirizine HCl (ZyrTEC ALLERGY) 10 MG capsule if needed. Cyanocobalamin (Vitamin B-12) 2500 MCG sublingual tablet 1 (one) time each day in the morning. 01/05/2022 diclofenac (Voltaren) 1 % topical gel APPLY 2 GRAMS TOPICALLY 4 TIMES DAILY 02/26/2021 hydroxychloroqui ne (Plaquenil) 200 MG tablet Take 1 tablet (200 mg) by mouth 2 (two) times a day. 02/15/2022 lamoTRIgine (LaMICtal) 150 MG tablet every 12 (twelve) hours. 05/09/2013 omeprazole (PriLOSEC) [address] capsule 1 (one) time each day in the morning. 04/07/2020 ibuprofen 600 MG tablet 01/05/2022 3 documented as of this encounter Plan of Treatment Not on file documented as of this encounter Procedures Procedure Name Priority Date/Time Associated Diagnosis Comments XR LUMBAR SPINE 2 OR 3 VIEWS Routine 02/22/2022 2:39 PM EST S/P lumbar spinal fusion documented in this encounter Results * XR Lumbar Spine 2 or 3 Views (02/22/2022 2:39 PM EST) Anatomical Region Laterality Modality Spine, L-spine Digital Radiogra phy Impressions 02/22/2022 2:55 PM EST Postoperative changes as described above. No hardware complication. CRITICAL RESULT: ?? No. COMMUNICATION: Per this written report. Dictated by Baylee Meeks MD on 02/22/2022 2:54 PM Signed by Baylee Meeks MD on 02/22/2022 2:55 PM Narrative 02/22/2022 2:55 PM EST Exam/Procedure: XR LUMBAR SPINE 2 OR 3 VIEWS ordered by KOKO ARAMBULA, [id number] CLINICAL INDICATION: follow up fusion TECHNIQUE: XR LUMBAR SPINE 2 OR 3 VIEWS COMPARISON: 12/30/2021. FINDINGS: Posterior fusion instrumentation with interbody spacer at L4-5. No hardware complication. Mild retrolisthesis of L3 on L4, unchanged from prior exam. Vertebral body heights are well-maintained. Multilevel, mild degenerative disc disease of the lumbar spine. Procedure Note Baylee Meeks MD - 02/22/2022 Exam/Procedure: XR LUMBAR SPINE 2 OR 3 VIEWS ordered by KOKO ARAMBULA,[id number] CLINICAL INDICATION: follow up fusion TECHNIQUE: XR LUMBAR SPINE 2 OR 3 VIEWS COMPARISON: 12/30/2021. FINDINGS: Posterior fusion instrumentation with interbody spacer at L4-5. Nohardware complication. Mild retrolisthesis of L3 on L4, unchanged fromprior exam. Vertebral body heights are well-maintained. Multilevel, milddegenerative disc disease of the lumbar spine. IMPRESSION: Postoperative changes as described above. No hardware complication. CRITICAL RESULT: No. COMMUNICATION: Per this written report. Dictated by Baylee Meeks MD on 02/22/2022 2:54 PM Signed by Baylee Meeks MD on 02/22/2022 2:55 PM Koko Arambula PA IMG XR PROCEDURES Final Result documented in this encounter Visit Diagnoses Diagnosis S/P lumbar spinal fusion Arthrodesis status documented in this encounter Additional Health Concerns Assessment Noted Time A fall risk assessment has been complete d for the patient 12/23/2021 11:53 AM EDT documented as of this encounter Care Teams Stereo Equipment Salesperson Relationship Specialty Start Date End Date Amber Bedolla APRN [facility] [address] [address] PCP - General 07/18/20 Tarik Cadet MD [address] [address] Surgeon Neurosurgery 05/25/21 documented as of this encounter
--- OUTSIDE RECORDS SUMMARY | 2024-02-08 13:13 | XMS_ITS | Encounter Summary ---
Author Organization [facility] Address [address] [id number] Care Team Providers Care Vice President Of Product Marketing Name Role Phone Amber Bedolla VIVIENNE Primary Care Provider [phone]- [phone] Tarik Cadet MD Unavailable [phone] Reason for Visit * Reason Comments Post-op Encounter Details Date Type Department Care Team (Late st Contact Info) Description 02/08/2023 10:10 AM EST Office Visit [facility] [address] [facility], [address] [place] [address] Shadi Mims MD [address] [facility] [address] [place] [address] Traumatic complete tear of right rotator cuff, sequela (Primary Dx) Social History Tobacco Use Types [...] drink first t mony in the morning (EYE-STOCK CONTROL CLERK) to steady your nerves or to get [...] as of this encounter Miscellaneous Notes * Progress Notes - aDvid Wilson MD - 02/08/2023 10:10 AM EST Orthopedic Sports Surgery Office Note Date of surgery: 02/04/2023 Procedure: 1. Right shoulder diagnostic arthroscopy. 2. Arthroscopic biceps tenodesis. 3. Arthroscopic subacromial decompression. 4. Arthroscopic rotator cuff repair. HPI: She is here for follow-up of the above procedure. Overall the patient feels they have been doing well since surgery. The patient reports that pain is well controlled. They have been compliant with postoperative instructions. Patient has been compliant with shoulder sling use. They deny any newquestions or concerns today. Physical Exam: Right shoulder demonstrates: Incision: Postop incisions are well approximated without any surrounding erythema or signs of infection ROM: Deferred at this time Sensation and motor function are intact to the musculocutaneous, axillary, median, radial, and ulnar nerve distributions Assessment/Plan: Status post the aforementioned procedure. - Conservative rotator cuff repair protocol - We will plan to start physical therapy after the 1 month postoperative visit. - Okay to remove the sling a couple of times a day to do range of motion of the elbow hand and wrist. - Activity: Wear sling at all times except for dressing and hygiene. No shoulder range of motion, no push pulling or lifting through the right upper extremity. - The patient will follow up in 1 month for a visit with Dr. Mims. David Wilson MD Orthopedic Sports Medicine Fellow [facility] 02/08/2023 9:57 AM Cosigned by Shadi Mims MD at 02/13/2023 3:43 PM EST Associated attestation - Shadi Mims MD - 02/13/2023 3:43 PM EST I reviewed with the resident the medical history and the resident's findings on physical examination. I discussed with the resident the patient's diagnosis and concur with the treatment plan as documented in the resident note. documented in this encounter Plan of Treatment Not on file documented as of this encounter Visit Diagnoses Diagnosis Traumatic complete tear of right rotator cuff, sequela- Primary documented in this encounter Additional Health Concerns Assessment Noted Time A fall risk assessment has been complete d for the patient 12/14/2022 1:02 PM EDT A Body Mass Index follow-up plan has been documented for the patient 02/08/2023 11:10 AM EST documented as of this encounter Care Teams Vice President Of Product Marketing Relationship Specialty Start Date End Date Amber Bedolla APRN [address] [place] [address] PCP - General 07/18/20 Tarik Cadet MD [address] [address] Surgeon Neurosurgery 05/25/21 documented as of this encounter
--- OUTSIDE RECORDS SUMMARY | 2024-02-08 13:13 | XMS_ITS | Encounter Summary ---
Author Organization [facility] Address [address] [place] [address] Care Team Providers Care Data Analytics Developer Name Role Phone ChiomaAmber barrios Antonio PALAFOX Primary Care Provider [phone] Tarik Cadet MD Unavailable [phone] Encounter Details Date Type Department Care Team (Latest Contact Info) Description 03/01/2023 Travel Social History Tobacco Use Types Packs/Day [...] drink first t mony in the morning (EYE-PAPER SALES MANAGER) to steady your nerves or to get [...] plan has been documented for the patient 03/01/2023 6:32 PM EST documented as of this encounter Care Teams Data Analytics Developer Relationship Specialty Start Date End Date Amber Bedolla APRN [address] [id number] PCP - General 07/18/20 Tarik Cadet MD [address] [facility] [address] [place] [address] Surgeon Neurosurgery 05/25/21 documented as of this encounter
--- OUTSIDE RECORDS SUMMARY | 2024-02-08 13:13 | XMS_ITS | Encounter Summary ---
Author Organization [facility] Address [address] [id number] Care Team Providers Care Amusement Or Recreation Card Checker Name Role Phone Amber Bedolla Antonio PALAFOX Primary Care Provider [phone] Tarik Cadet MD Unavailable [phone] Reason for Referral * Imaging (Routine) - Closed Specialty Diagnoses / Procedures Referred By Contac t Referred To Contact Radiology Diagnoses Traumatic complete tear of right rotator cuff, subsequent encounter Procedures MR Shoulder Right wo IV Contrast Shadi Mims MD [address] [place], [place] [address] [address] Phone: tel: fax: Referral ID Status Reason Start Date Expiration Date Visits Re quested Visits Authorized [id number] Closed 11/23/2022 05/24/2024 1 1 Reason for Visit * Imaging (Routine) - Closed Specialty Diagnoses / Procedures Referred By Contac t Referred To Contact Radiology Diagnoses Traumatic complete tear of right rotator cuff, subsequent encounter Procedures MR Shoulder Right wo IV Contrast Shadi Mims MD [address] [place], [place] [address] [address] [address] Phone: tel: fax: Referral ID Status Reason Start Date Expiration Date Visits Re quested Visits Authorized [id number] Closed 11/23/2022 05/24/2024 1 1 Encounter Details Date Type Department Care Team (Latest Contact Info) Description 12/10/2022 2:53 PM EDT - 12/10/2022 11:59 PM EDT Hospital Encounter [facility] MRI [address] [place] [address] Traumatic complete tear of right rotator cuff, subsequent encounter Discharge Disposition: Home or Self Care Social [...] drink first t mony in the morning (EYE-MACERATOR OPERATOR) to steady your nerves or to [...] Name Priority Date/Time Associated Diagnosis Comments MR SHOULDER RIGHT WO IV CONTRAST Routine 12/10/2022 3:37 PM EDT Traumatic complete tear of right rotator cuff, subsequent encounter documented in this encounter Results * MR Shoulder Right wo IV Contrast (12/10/2022 3:37 PM EDT) Anatomical Region Laterality Modality Upper Extremities Right Magnetic Reson ance Impressions 12/10/2022 4:32 PM EDT Mild fatty atrophy of the supraspinatus and infraspinatus muscles, similar to the comparison exam. Redemonstration of full width, full-thickness tears of the supraspinatus and infraspinatus tendons, retracted to the glenohumeral joint. Moderate subscapularis tendinosis with mild fraying of the articular sided fibers. Mild intra-articular long head biceps tendinosis without evidence of tear. CRITICAL RESULT: ?? No. COMMUNICATION: Per this written report. By electronically signing this report, I, the attending physician, attest that I have personally reviewed the images/data for the above examination(s) and agree with the final edited report. Drafted by Nory Daniels MD on 12/10/2022 3:56 PM Final report signed by Steve Krishnan MD on 12/10/2022 4:32 PM Narrative 12/10/2022 4:32 PM EDT CLINICAL INDICATION: Shoulder pain, rotator cuff disorder suspected, xray done TECHNIQUE: Axial proton density, coronal proton density, coronal T2 FS, sagittal T2 FS, sagittal T1. COMPARISON: Right shoulder radiographs 11/23/2022, MR right shoulder 04/30/2021 FINDINGS: ?? Motion artifact decreases the sensitivity the exam. Tendons/Muscles: Mild fatty atrophy of the supraspinatus and infraspinatus muscles, similar to the comparison exam. Full width, full-thickness tear of the supraspinatus tendon, retracted to the glenohumeral joint. Full width, full thickness tear of the infraspinatus tendon with retraction to the glenohumeral joint. Moderate subscapularis tendinosis with mild fraying of the articular sided fibers. Mild intra-articular long head biceps tendinosis without evidence of tear. Labrum: Diffuse degeneration of the labrum, no evidence of acute tear. No para labral cysts. Cartilage: No focal osteochondral defect. 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 Degenerative cystic changes of the acromion and distal clavicle. No fracture, AVN or suspicious intraosseous lesion. Soft Tissues: The quadrilateral space, spinoglenoid notch and suprascapular notch are normal in signal with no evidence of space occupying mass. There is no edema or fat replacement in the rotator interval or soft tissue thickening in the axillary pouch. There is no significant glenohumeral joint effusion. Procedure Note Steve Krishnan MD - 12/10/2022 CLINICAL INDICATION: Shoulder pain, rotator cuff disorder suspected, xray done TECHNIQUE: Axial proton density, coronal proton density, coronal T2 FS, sagittal T2FS, sagittal T1. COMPARISON: Right shoulder radiographs 11/23/2022, MR right shoulder 04/30/2021 FINDINGS: Motion artifact decreases the sensitivity the exam. Tendons/Muscles: Mild fatty atrophy of the supraspinatus and infraspinatusmuscles, similar to the comparison exam. Full width, full-thickness tearof the supraspinatus tendon, retracted to the glenohumeral joint. Fullwidth, full thickness tear of the infraspinatus tendon with retraction tothe glenohumeral joint. Moderate subscapularis tendinosis with mildfraying of the articular sided fibers. Mild intra-articular long headbiceps tendinosis without evidence of tear. Labrum: Diffuse degeneration of the labrum, no evidence of acute tear. Nopara labral cysts. Cartilage: No focal osteochondral defect. Bones and Joints: Moderate to severe AC joint osteoarthrosis with smalljoint effusion. Degenerative cystic changes of the acromion and distalclavicle. No fracture, AVN or suspicious intraosseous lesion. Soft Tissues: The quadrilateral space, spinoglenoid notch andsuprascapular notch are normal in signal with no evidence of spaceoccupying mass. There is no edema or fat replacement in the rotatorinterval or soft tissue thickening in the axillary pouch. There is nosignificant glenohumeral joint effusion. IMPRESSION: Mild fatty atrophy of the supraspinatus and infraspinatus muscles, similarto the comparison exam. Redemonstration of full width, full-thickness tears of the supraspinatusand infraspinatus tendons, retracted to the glenohumeral joint. Moderate subscapularis tendinosis with mild fraying of the articular sidedfibers. Mild intra-articular long head biceps tendinosis without evidence oftear. CRITICAL RESULT: No. COMMUNICATION: Per this written report. By electronically signing this report, I, the attending physician, gonzalez I have personally reviewed the images/data for the aboveexamination(s) and agree with the final edited report. Drafted by Nory Daniels MD on 12/10/2022 3:56 PM Final report signed by Steve Krishnan MD on 12/10/2022 4:32 PM Shadi Mims MD IMG MRI PROCEDURES Final Result documented in this encounter Visit Diagnoses Diagnosis Traumatic complete tear of right rotator cuff, subsequent encounter documented in this encounter Additional Health Concerns Assessment Noted Time A fall risk assessment has been complete d for the patient 11/23/2022 8:46 AM EDT A Body Mass Index follow-up plan has been documented for the patient 11/23/2022 5:10 PM EDT documented as of this encounter Care Teams Amusement Or Recreation Card Checker Relationship Specialty Start Date End Date Amber Bedolla APRN [address] [place] [address] PCP - General 07/18/20 Tarik Cadet MD [address] [facility] [place] [address] Surgeon Neurosurgery 05/25/21 documented as of this encounter
--- OUTSIDE RECORDS SUMMARY | 2024-02-08 13:13 | XMS_ITS | Encounter Summary ---
Author Organization [facility] Address [address] [place] [address] Care Team Providers Care Leather Grainer Name Role Phone ChiomaAmber barrios Antonio PALAFOX Primary Care Provider [phone]- [phone] Tarik Cadet MD Unavailable [phone] Encounter Details Date Type Department Care Team (Latest Contact Info) Description 12/10/2022 Travel Social History Tobacco Use Types Packs/Day [...] drink first t mony in the morning (EYE-SWITCHER) to steady your nerves or to get [...] documented as of this encounter Care Teams Leather Grainer Relationship Specialty Start Date End Date Amber Bedolla APRN [address] [place] [address] PCP - General 07/18/20 Tarik Cadet MD [id number] [place] [address] Surgeon Neurosurgery 05/25/21 documented as of this encounter
--- OUTSIDE RECORDS SUMMARY | 2024-02-08 13:13 | XMS_ITS | Encounter Summary ---
Author Organization [facility] Address [address] [place] [address] Care Team Providers Care Broadcast Traffic Coordinator Name Role Phone ChiomaAmber barrios Antonio PALAFOX Primary Care Provider [phone]- [phone] Tarik Cadet MD Unavailable [phone] Encounter Details Date Type Department Care Team (Latest Contact Info) Description 11/23/2022 Travel Social History Tobacco Use Types Packs/Day [...] drink first t mony in the morning (EYE-CLOTH BALE HEADER) to steady your nerves or to get [...] documented as of this encounter Care Teams Broadcast Traffic Coordinator Relationship Specialty Start Date End Date Amber Bedolla APRN [address] [place] [address] PCP - General 07/18/20 Tarik Cadet MD [id number] [place] [address] Surgeon Neurosurgery 05/25/21 documented as of this encounter
--- OUTSIDE RECORDS SUMMARY | 2024-02-08 13:13 | XMS_ITS | Encounter Summary ---
Author Organization [facility] Address [address] [place] [address] Care Team Providers Care Products Mechanical Design Engineer Name Role Phone ChiomaAmber barrios Antonio PALAFOX Primary Care Provider [phone] Tarik Cadet MD Unavailable [phone] Encounter Details Date Type Department Care Team (Latest Contact Info) Description 12/14/2022 Travel Social History Tobacco Use Types Packs/Day [...] drink first t mony in the morning (EYE-REMNANTS CUTTER) to steady your nerves or to get [...] documented as of this encounter Care Teams Products Mechanical Design Engineer Relationship Specialty Start Date End Date Amber Bedolla APRN [address] [id number] PCP - General 07/18/20 Tarik Cadet MD [id number] [place] [address] Surgeon Neurosurgery 05/25/21 documented as of this encounter
--- OUTSIDE RECORDS SUMMARY | 2024-02-08 13:13 | XMS_ITS | Encounter Summary ---
Author Organization [facility] Address [address] [id number] Care Team Providers Care Woolen Suiting Shrinker Name Role Phone Amber Bedolla VIVIENNE Primary Care Provider [phone] Tarik Cadet MD Unavailable [phone] Encounter Details Date Type Department Care Team (Late st Contact Info) Description 02/22/2022 2:45 PM EST Office Visit [place] [facility] [address] [place] [address] Tarik Cadet MD [address] [place] [address] S/P lumbar spinal fusion (Primary [...] drink first t mony in the morning (EYE-RECONCILIATION CLERK) to steady your nerves or to [...] Sign Reading Time Taken Comments Blood Pressure 147/86 02/22/2022 2:34 PM EST Pulse 97 02/22/2022 2:34 PM EST Temperature - - Respiratory Rate - - Oxygen Saturation 96% 02/22/2022 2:34 PM EST Inhaled Oxygen Concentration - - Weight 79.4 kg (175 lb) 02/22/2022 2:34 PM EST Height 160 cm (5' 3 ) 02/22/2022 2:34 PM EST Body Mass Index 31 02/22/2022 2:34 PM EST documented in this encounter Miscellaneous Notes * Progress Notes - Leyla Armas PA - 02/22/2022 2:45 PM EST We had the pleasure of seeing your patient in our clinic today for continued Neurosurgical evaluation. Chief Complaint Eight week follow-up. History Of Present Illness Marianela Ceja is a 67 y.o. female returns today for continued postoperative surveillance. The patient is now 8 weeks status post a TLIF at L4-5, MIS approach, completed by Dr. Tarik Cadet on 12/30/2021.She returns today doing well. She denies back pain or lower extremity pain. She does report bilateral knee pain, noting history bilateral knee replacements. She is also status post left hip replacement. She was diagnosed with rheumatoid arthritis approximately 8 weeks ago. Her snow remover, Dr. Fuentes, started her on Plaquenil in mid January. She feels as if the medication has provided somebenefit. She also takes ibuprofen. She is scheduled to follow up with Orthopedics tomorrow regarding hip and knee pain. Overall, the patient is thoroughly pleased with the results of surgery. Past Medical History She has a past medical history of Arthritis, Dysphagia, FH: total knee replacement (2018), GERD (gastroesophageal reflux disease), Kidney stones, Motion sickness, Rheumatoid arthritis (CMS/HCC), and Rotator cuff tear arthropathy of right shoulder. She has no past medical history of Malignant hyperthermia. Surgical History She has a past surgical history that includes Joint replacement; Hip Arthroplasty; and Spinal fusion (12/30/2021). Family History Family History Problem Relation Name Age of Onset Arthritis Other Diabetes Other Hyperlipidemia Other Hypertension Other Social History She reports that she has never smoked. She has never used smokeless tobacco. She reports that she does not drink alcohol and does not use drugs. Medications Current Outpatient Medications Medication Sig Dispense Refill Cetirizine HCl (ZyrTEC ALLERGY) 10 MG capsule if needed. Cyanocobalamin (Vitamin B-12) 2500 MCG sublingual tablet diclofenac (Voltaren) 1 % topical gel APPLY 2 GRAMS TOPICALLY 4 TIMES DAILY hydroxychloroquine (Plaquenil) 200 MG tablet Take 200 mg by mouth 2 (two) times a day. ibuprofen 600 MG tablet lamoTRIgine (LaMICtal) 150 MG tablet every 12 (twelve) hours. omeprazole (PriLOSEC) [address] capsule 1 (one) time each day at the same time. No current facility-administered medications for this visit. Allergies Patient has no known allergies. Review of Systems 14 point review of systems was performed and was negative except as noted per HPI. Physical Exam GEN: well developed, no acute distress HEENT: normocephalic, atraumatic, no scleral icterus PULM: no increased work of breathing, normal effort CV: normal rate and regular rhythm MSK: no joint swelling, normal range of motion SKIN: warm and dry PSYCHE: normal mood and affect Last Recorded Vitals Visit Vitals BP (!) 147/86 Pulse 97 Ht 1.6 m (5' 3 ) Wt 79.4 kg (175 lb) SpO2 96% BMI 31.00 kg/m?? OB Status Postmenopausal Smoking Status Never BSA 1.88 m?? Labs No lab exists for component: ALB Imaging Lumbar AP/Lat x-ray films were obtained today and personally reviewed by myself and Dr. Tarik Cadet. Images show stable hardware at L4-5 with interbody spacer. There is no hardware failure or loosening noted. Assessment and Plan Marianela Ceja is a 67 y.o. female here today for continued postoperative surveillance where she is now8 weeks status post an MIS TLIF at L4-5 on 12/30/2021. We are thoroughly pleased with the patient'sprogress postoperatively at this time, she reports improvement in low back pain. She denies any radicular leg pain. We are referring her to physical therapy for core strengthening and stabilization exercises. She will follow up with Orthopedics regarding her hip and bilateral knee pain tomorrow. Nomedication refills were needed today. Further postoperative restrictions were discussed with the patient and verbal understanding was received. We will have the patient return to clinic in 3 months for continued surveillance. We will obtain lumbar flexion-extension x-ray films at follow-up appointment. They had the opportunity to ask questions, all of which were answered to their satisfaction. I reviewed this patient's history, exam, and imaging with Dr. Tarik Cadet. He guided plan of care for this patient. The total [id number] time spent on this visit was greater than 30 minutes, with the majority (>50%) of the time spent in counseling, discussing pathology and management options, andcoordination of care. Assessment/Plan Active Problems: There are no active Hospital Problems. Leyla Armas PA-C [facility] Department of Neurosurgery Cosigned by Tarik Cadet MD at 02/23/2022 6:19 PM EST Associated attestation - Tarik Cadet MD - 02/23/2022 6:19 PM EST Signature Only I saw and examined the patient with the SHEILA. I agree with the assessment and plan. A substantive portion of care was provided by the SHEILA. documented in this encounter Plan of Treatment Not on file documented as of this encounter Visit Diagnoses Diagnosis S/P lumbar spinal fusion- Primary Arthrodesis status documented in this encounter Additional Health Concerns Assessment Noted Time A fall risk assessment has been complete d for the patient 12/23/2021 11:53 AM EDT documented as of this encounter Care Teams Woolen Suiting Shrinker Relationship Specialty Start Date End Date Amber Bedolla APRN [address] [id number] PCP - General 07/18/20 Tarik Cadet MD [address] [facility] [address] [place] [address] Surgeon Neurosurgery 05/25/21 documented as of this encounter
--- OUTSIDE RECORDS SUMMARY | 2024-02-08 13:13 | XMS_ITS | Encounter Summary ---
Author Organization [facility] Address [address] [place] [address] Care Team Providers Care Ostomy Nurse Name Role Phone ChiomaAmber barrios Antonio PALAFOX Primary Care Provider [phone] Tarik Cadet MD Unavailable [phone] Encounter Details Date Type Department Care Team (Latest Contact Info) Description 12/09/2022 Travel Social History Tobacco Use Types Packs/Day [...] drink first t mony in the morning (EYE-ASPHALT PAVING FOREMAN) to steady your nerves or to get [...] documented as of this encounter Care Teams Ostomy Nurse Relationship Specialty Start Date End Date Amber Bedolla APRN [address] [place] [address] PCP - General 07/18/20 Tarik Cadet MD [id number] [place] [address] Surgeon Neurosurgery 05/25/21 documented as of this encounter
--- OUTSIDE RECORDS SUMMARY | 2024-02-08 13:13 | XMS_ITS | Encounter Summary ---
Author Organization [facility] Address [address] [place] [address] Care Team Providers Care Store Product Demonstrator Name Role Phone Amber Bedolla Antonio PALAFOX Primary Care Provider [phone] Tarik Cadet MD Unavailable [phone] Reason for Visit * Auth/Cert (Routine) Specialty Diagnoses / Procedures Referred By Contremi t Referred To Contact Diagnoses Traumatic complete tear of right rotator cuff, sequela Traumatic complete tear of right rotator cuff, sequela [S46.011S] Procedures NM SHLDR ARTHROSCOP,SURG,W/ROTAT CUFF REPR NM ARTHROSCOPY SHOULDER SURGICAL BICEPS TENODESIS RIGHT Shoulder arthroscopy, exam under anesthesia, rotator cuff repair, subacromial decompression with biceps tenodesis and any other indicated procedures Shadi Mims MD [facility] [address] Phone: tel: fax: [facility] [address] [place] [address] Phone: tel: Referral ID Status Reason Start Date Expiration Date Visits Re quested Visits Authorized [id number] 1 1 Encounter Details Date Type Department Care Team (Late st Contact Info) Description 02/04/2023 9:47 AM EST - 02/04/2023 12:12 PM EST Surgery [facility] [address] [place] [address] Shadi Mims MD [address] [facility] [address] [place] [address] RIGHT Shoulder arthroscopy, rotator cuff repair, subacromial decompression with biceps tenodesis [62530 (CPT??)] Surgery Details Date/Time Status Location OR Service Patient Class Case Class Case Type Trauma Case? 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) to steady your nerves or to get [...] Sign Reading Time Taken Comments Blood Pressure 129/76 02/04/2023 10:05 AM EST Pulse 61 02/04/2023 10:05 AM EST Temperature 36.2 ??C (97.2 ??F) 02/04/2023 7:18 AM ES T Respiratory Rate 9 02/04/2023 10:0 5 AM EST Oxygen Saturation 95% 02/04/2023 10: 05 AM EST Inhaled Oxygen Concentration - - Weight 83.9 kg (184 lb 15.5 oz) 02/04/2023 7:18 AM EST Height 160 cm (5' 3 ) 02/04/2023 7:18 AM EST Body Mass Index 32.77 02/04/2023 7:18 AM EST documented in this encounter Discharge Instructions * Discharge Instructions* Marj Myles RN - 02/03/2023 3:16 PM EST Images from the original note were not included. Medications: Oxycodone - start taking the night of your surgery. Take as ordered until not needed for pain any more or until all tablets are used. Should alternate Ibuprofen and Tylenol between oxycodone doses as needed for pain Zofran - take as needed for nausea Physical Activity: Wear your sling at all times. No physical therapy at this time. Come out of the sling for perform elbow, wrist, and hand range of motion. No reaching across your body or raising your arm. No pushing, pulling, or reaching behind your back. Dressings and bandages may be removed three days after surgery. Steri-strips that resemble small band-aids may be left in place until they fall off on their own. If there is no drainage, then you may leave the wounds open to air. If there is drainage, cover thewounds with a clean, dry dressing. Use the cold therapy device regularly to help with postoperative discomfort and swelling. Showering: You may start showering 3 days after surgery. Steri-strips may get wet in the shower Do NOT soak the wound - no bath, and no submerging wound under water. Do NOT scrub the wound. Do NOT put any ointments or creams on the wound. This includes neosporin and Bacitracin. Phone numbers if you have any concerns: Office: [phone] or [phone] After hours or weekends: [phone] to contact the sports medicine doctor residential sales consultant. Post-Anesthesia and Postoperative Instructions (UK) In order to have a fast and comfortable recovery at home, please follow these instructions. A responsible adult must be present for you to be discharged. Do not drive, drink alcohol or make important decisions for 24 hours after surgery. You may feel like resting more than normal after surgery. Start slowly and be more active each day. Start slowly with liquids like 7-up, tea, apple juice or broth. Eat more as your stomach allows. Ifyou feel sick to your stomach, go back to drinking liquids. You may feel some discomfort after surgery. Take the medicine as directed by your caregiver. If your medicine makes you drowsy, do not drink alcohol, drive or operate heavy equipment for at least 24 hours after use. If you are taking antibiotics, take them until they are all gone even if you feel well. Cover your wound or bandage when showering, unless your doctor tells you differently. A small amount of drainage on your bandage is normal. Do not remove your bandage unless your doctortells you to. Please keep track of information about the medicines you take. Follow these tips to manage your medicines. Keep a list of all your medicines. Update the list when you start or stop taking a medicine. Write down changes in how you should take them. Carry your medicine list with you at all times. It will be needed if you have a health emergency . Give the list to your family doctor. Take the list to all your doctor visits. Call your doctor if you have any of the following Temperature higher than 101.5??F Chest pain or difficulty breathing Stomach sickness or throwing up that does not go away You cannot urinate by bedtime Pain is not helped by your medicine. Bandage becomes soaked with blood - Don't remove the bandage, reinforce only Swelling, redness, pain or pus from incision Questions or concerns about your surgery. In the event of an emergency, please go to the closest Emergency Room or call the Emergency Department at [phone]. Smoking and its health risks Smoking is the most preventable cause of illness and in the [place]. Cigarettes are filled with poison that goes into the lungs as you inhale. About 440,000 people every year from illnesses caused by smoking. People who smoke earlier than those who do not smoke. Heart and blood vessel disease, lung disease and ulcers are just some of the health problems that may be caused by smoking. Smoking also slows bone and wound healing and may slow your recovery from surgery. For help quitting smoking, call the National Cancer [place]'s Quitline toll free at or ask your doctor for help. Weight Management Weighing too much is not good for your health. Being overweight increases your risk of health conditions such as heart problems, high blood pressure, type 2 diabetes, and certain types of cancer. Being overweight can also increase your risk for osteoarthritis (nz-ukz-bs-stp-IUBU-oor) (joint disease), sleep apnea (abnormal breathing at night) or other respiratory (breathing) problems. Being overweight may also cause a person to feel sad or be treated differently by others. The best way to lose weight is to eat fewer calories and get regular exercise. Eating more caloriesthan you need will cause you to gain weight. Try to cut down your calories by 500 calories per day.For example, cut down on one soda (about 150 calories), a small bag of regular potato chips (about 150 calories) and one chocolate bar (about 250 calories). For most people, this change will result in a slow weight loss of about one pound a week. Exercise (for example, walk, swim, or bicycle) for at least 30 minutes on most days of the week. You will be more likely to keep weight off if you make lifelong lifestyle changes. Aim for a slow, steady weight loss. Losing even a small amount of weight can lower your risk of health problems. Ask your dietitian, lead die molder or doctor about a weight loss goal that is right for you. Safe Use of Controlled Substances Taking a medicine may be an important part of your treatment. Your body should heal faster if you take medicine safely. Some medicines are called Controlled Substances. This means their use is controlled by law. Some of these can harm you if you do not take them safely. What can I do to make sure I take my medicine safely? Follow the instructions we give you for how to take your medicine. We will give you an instruction sheet for each of your medicines. Ask your doctor or nurse if you do not get these instructions. Some medicines make you sleepy or cloud your thinking. Do not drive, use heavy machines or do dangerous activities while taking these medicines. Read the label on the bottle each time you take your medicine. Do not take your medicine with alcohol or other sedatives. Do not take medicine after the expiration date. It is against the law to sell your medicine or share it with others. Do not drive while using your medicine. How should I store my medicine? Store it in a safe place. This will keep others from taking your medicine and help you keep track of it. Store controlled substances in a cabinet or container that you can lock. Keep it in a place that is cool, dry and out of direct sunlight. Do not leave it in the car. Do not store in a refrigerator or freezer, unless your doctor tells you to. Call your doctor right away if your medicine is lost or stolen. How should I dispose of medicine that is or no longer needed? You may have medicine left over that you do not need or should not take. You must dispose of it theright way to protect yourself and others. You can ask your local pharmacist how to dispose of them.You can also visit these Web sites to learn more about disposal of controlled substances: Drug Enforcement Agency (JC): http://www.deadiversion.[place]j.gov/drug_disposal/takeback/index.htm National Association of Drug Diversion Investigators (NADDI): http://rxdrugdropbox.org/ [place] Office of Drug Control Policy: http://odcp.ri.gov/Prescription+Drug+Drop+Box+Sites.htm Are there concerns about or ? Before you take a medicine, tell your doctor if you are or plan to get . This could harm your baby. Tell your doctor if you breastfeed. Medicine in breast milk may be bad for your child. What if I have low or impaired vision? If you have vision problems, take extra care with your medicine. Wear your glasses when you take your medicine. Do not take medicine in the dark. What are the signs of overdose? Some controlled substances may cause breathing problems if you take more than your doctor recommends. This may lead to serious health problems or even . You and your caregivers should watch for the following signs of overdose. Slurred speech, confusion or stumbling Feeling dizzy or faint Acting drowsy or groggy Unusual snoring, gasping or snorting during sleep Hard to wake up or keep awake What should I or my caregiver do if I overdose? You or your caregiver should call 911 if you have any of these problems: Cannot wake up Cannot talk after waking up Shortness of breath, slow or light breathing, or breathing has stopped Heartbeat is slow or stopped Gurgling noise comes from the mouth or throat Body is limp or seems lifeless Face is pale or clammy Fingernails or lips look blue or purple What is a GRIS report? GRIS is a system that tracks prescriptions of controlled substances in [place]. The GRIS report tells your doctor if you have been prescribed controlled substances in the past. Doctors must get a GRIS report before prescribing controlled substances. What can I do if the information in my GRIS report is wrong? You or your doctor may contact the dispenser who reported the information to GRIS. If the dispenser agrees that the information should be changed, he or she can fix the GRIS report. However, the dispenser may certify that the report is correct. If that is the case, you or your doctor may then call the [place] Drug Enforcement and Professional Practices Branch at .This will start an investigation of the error. Tips for Quitting Tobacco ([place]) Tobacco and secondhand smoke can cause health problems such as cancer or heart and lung disease. They also make it harder for you to get better after an illness or surgery. Tobacco and tobacco smoke have more than 4000 chemicals. They can hurt you and those near you. Know your ???triggers?? Triggers are danger situations where you have a strong urge to use tobacco. If you know them, you can deal with them. Avoid places where you will see people use tobacco. This is very important when you first start to quit. Plus, secondhand smoke is bad for you. Change habits that give you the urge to use tobacco. If you smoked in the car, drink water instead.If you used tobacco after meals, try taking walks. Stress, anger or sadness can cause you to crave tobacco. Fight the urge by thinking of things that make you relaxed or happy - like your favorite song. The urge will often pass in a few minutes. How to cope with nicotine withdrawal Nicotine in tobacco is very addictive. Nicotine withdrawal can put you in a bad mood and cause you to crave tobacco. This can last for weeks after you quit. There are medicines that can ease these feelings. We can help our patients fight the urge to use tobacco. While you are here, your doctor can get you medicines, nicotine patches or gum. Talk to your doctor about which one is best for you. Let us help you quit You do not have to spend a lot of money to get help. You may even find help for free. Support groups: Your local health department may offer these. 's resources to help you quit: http://www.[facility].[place]/TobaccoFree/ - Click on the Quit Here! tab. A telephone quit line: (0-983-TVCZXCT) Web sites: www.smokefree.gov, www.becomeanex.JuiceBoxJungle, www.[employer] Tobacco Treatment Counselors: Call 315-906-0336. Medicare and Medicaid pay for this. employees, retirees, and their spouses or sponsored dependents can get free nicotine replacementtherapy and coaching. Visit www.[facility].[place]/HR/Wellness/consults.html. [facility]: Free pamphlets on quitting tobacco, secondhand smoke and other health topics. Tell your doctor or nurse if you are want to know more. We can help! You can quit! It is hard to quit tobacco. Most people try to quit a few times before they stay quit for good. It will be easier to quit if you can relax and stay calm in times of stress. Quitting tobacco saves youmoney and your health! * Attachments The following attachments cannot be sent through Care Everywhere. * Peripheral Nerve Block, Upper Extremity (UK) ([place]) * UltraSling, How to Dress ([place]) ([place]) documented in this encounter Medications at Time of Discharge [...] while taking pain medications.). 50 tablet 02/04/2023 oxyCODONE (Roxicodone) 5 MG immediate release tablet Take 1 tablet (5 mg) by mouth every 4 (four) hours if needed for severe pain (May take less frequently if that will control the pain) for up to 7 days. 35 tablet 02/04/2023 3 Symbicort 160-4.5 MCG/ACT inhaler Inhale 2 puffs. 11/16/2022 4 documented as of this encounter Miscellaneous Notes * Op Note - Shadi Mims MD - 02/04/2023 10:52 AM EST Operative Note Date: 02/04/23 Location: [facility] OR Name: Marianela Ceja DOB: 1955, Attending Surgeon(s): Shadi Palafox - Primary Outside Medical Sales Representative(s): * David Wilson MD - Fellow ASA: II Blood Administration: Blood Product Administration History None Estimated Blood Loss: Minimal Drains: * None in log * Implants Type Name Action Serial No. [place] ANCHOR ALL SUTURE QFIX 2.8MM - [id number] Implanted [place] ANCHOR ULTRA TWINFIX 5.5 - [id number] Implanted Complications: None; patient tolerated the procedure well. PREOPERATIVE DIAGNOSIS: Right shoulder massive full-thickness rotator cuff tear. POSTOPERATIVE DIAGNOSES: 1. Right shoulder massive full-thickness rotator cuff tear. 2. Biceps tendinopathy PROCEDURE PERFORMED: 1. Right shoulder diagnostic arthroscopy. 2. Arthroscopic biceps tenodesis. 3. Arthroscopic subacromial decompression. 4. Arthroscopic rotator cuff repair. ATTENDING SURGEON: Shadi Mims MD. ACCOUNT CLERK SURGEON: David Wilson MD ANESTHESIA: General plus interscalene block. ESTIMATED BLOOD LOSS: Minimal. COMPLICATIONS: None apparent. INDICATIONS FOR PROCEDURE: The patient is a 68-year-old with a history of chronic right shoulder pain. She has had persistent symptoms. We discussed different treatment options. Decision was made to proceed with right shoulder arthroscopy and rotator cuff repair. He understood the risks and benefits of surgery including the risk of continued pain, continued functional deficit, failure of healing,stiffness, neurovascular injury, infection, possible need for further surgery, anesthesia and medical complications and wished to proceed. PROCEDURE IN DETAIL: The patient was taken to the operating room and placed in the supine position.General anesthesia was induced. Interscalene block had been placed preoperatively. Exam under anesthesia revealed full passive range of motion and a stable translational exam. The patient was placed in the beach chair position and the right upper extremity and shoulder area were prepped with ChloraPrep and draped in the usual sterile fashion. Standard posterior arthroscopic portal was achieved followed by an anterior portal in the rotator interval. The joint was examined systematically. The patient had mild anterior and superior and posterior labral tears that were debrided back to healthy tis dajuan. Articular cartilage was in good condition on the glenoid and humerus. Subscapularis tendon wasintact. torn at the upper border off the lesser tuberosity. A Q-fix suture anchor was placed in thelesser tuberosity. The biceps tendon was found to have significant tendinopathy throughout its substance. Attention was turned to the subacromial space. A shaver was used to complete a bursectomy and smooth the acromion to a flat surface. Accessory lateral portals were achieved. The patient had a massivefull-thickness rotator cuff tear from the rotator interval to the infraspinatus tendon. There was asmall L-shape component to the tear posteriorly where the infraspinatus tendon had split. There wasevidence of significant biceps tendinopathy. The rotator cuff was mobilized without difficulty. After mobilization, the rotator cuff could be brought back down anatomically without difficulty and under minimal tension. The posterior intratendinous split was repaired first. A double loaded Q Fix suture anchor was placed within the posterior aspect of the greater tuberosity. One limb of the suture was taken through the corner of the infraspinatus in the area that had split, with the other suture through the posterior tissue. The other suture was taken in simple fashion through the infraspinatustissue. The sutures were then tied in Max-Myles type configuration bringing the corner of the rota tor cuff tear back down anatomically to the posterior greater tuberosity. A shaver was used to abrade the greater tuberosity in the area of the tear. Two 5.5 mm Mackenzie [employer] Nephew Healicoil suture anchors were placed within the greater tuberosity, one posteriorly and one anteriorly. The biceps tendonwas tagged with a PDS suture and cut proximally. The remaining stump was debrided to the superior glenoid labrum. The sutures from the anchors were then sequentially passed through the rotator cuff tissue using the FirstPass device. The most anterior suture was taken first through the biceps tendon, then through the rotator interval tissue. Centrally the two sutures were crossed in a ripstitch configuration. The sutures were all sequentially tied bringing the rotator cuff back down anatomicallyto the greater tuberosity. The biceps was tenodesed to bone at the bicipital groove. The quality ofthe tissue was reasonably good. Final arthroscopic pictures were obtained. The shoulder was extravasated of fluid. Portals were closed with subcuticular stitches and Steri-Strips and sterile dressings were applied. The patient was placed in a sling and cryotherapy device was applied and she was extubated and taken to the recovery room in good condition having tolerated the procedure well. Submitted by: Shadi Mims MD - 02/04/2023 * Brief Op Note - David Wilson MD - 02/04/2023 10:52 AM EST Date: 02/04/23 Location: [facility] OR Name: Marianela Ceja, : 1955, Diagnoses: Pre-op Diagnosis Traumatic complete tear of right rotator cuff, sequela Post-op Diagnosis Traumatic complete tear of right rotator cuff, sequela Procedure(s): Right shoulder arthroscopic rotator cuff repair with biceps tenodesis. Attending Surgeon(s): * Shadi Mims - Primary Outside Medical Sales Representative(s): * David Wilson MD - Fellow Anesthesia: * No anesthesia type entered * ASA: II Blood Administration: Blood Product Administration History None Estimated Blood Loss: Minimal Drains: * None in log * Implants Type Name Action Serial No. [place] ANCHOR ALL SUTURE QFIX 2.8MM - [id number] Implanted [place] ANCHOR ULTRA TWINFIX 5.5 - [id number] Implanted Specimen: Findings: Massive rotator cuff tear with retraction to the level of the glenoid and biceps tendinopathy. Complications: None; patient tolerated the procedure well. Postoperative plan: - Conservative rotator cuff repair protocol - We will follow up next week for a wound visit and in 1 month for a visit with Dr. Mims. - We will plan to start physical therapy after the 1 month postoperative visit. - Okay to remove the sling a couple of times a day to do range of motion of the elbow hand and wrist. - Activity: no shoulder range of motion, no push pulling or lifting through the right upper extremity. Submitted by: David Wilson MD - 02/04/2023 Cosigned by Shadi Mims MD at 02/06/2023 7:31 PM EST Associated attestation - Shadi Mims MD - 02/06/2023 7:31 PM EST I was present for the entirety of the procedure(s). * H&P - Shadi Mims MD - 02/04/2023 9:45 AM EST History of present illness: Marianela Ceja is a 67 y.o. female here for re- evaluation of her right shoulder. Patient had a falling injury couple of years ago where she injured her right shoulder. We saw her back in April of 2021 and she had an MRI at that time that demonstrated that she had a rotator cuff tear that was retracted to the level of the glenoid. At that time she had opted for conservative management as she was scheduled for an L4-L5 lumbar fusion and wanted to recover from her surgery prior to pursuing any operative treatment for her shoulder. Come spring and summertime she had other medical things come up such as getting COVID and then being diagnosed with rheumatoid arthritis (lalitha bird on Plaquinel) that delayed her following up. She comes in today to talk about the results of her shoulder MRI. She reports that she continues to have pain in her shoulder and trouble sleeping at night. She reports that she has weakness with overhead activities. Patient reports she has trouble taking care of her horses because of her shoulder. She had recent tooth extraction which has done well and has been cleared for surgery by her dentist. I have reviewed and updated the patient's past medical history, past surgical history, social history, and family history. This is located both in the patient's note and their intake form that has been scanned into the medical record for today's visit. 14 point review of systems was reviewed per signed intake sheet and is otherwise negative except asnoted above. Objective: Constitutional: Well developed, well nourished, no acute distress HEENT: mucous membranes moist, normocephalic atraumatic Psychologic: appropriate mood and affect Chest: bilateral chest elevations, symmetric Cardiovascular: pink extremities, peripheral perfusion intact Respiratory: no respiratory distress, nonlabored on room air Abdomen: soft, nontender Neurologic: orientation to person, place and time Right SHOULDER EXAM There is no cervical tenderness. No obvious atrophy or deformity. No scapular dyskinesia. Patient has tenderness about the anterolateral shoulder. Active elevation is 170??, external rotation at the side 20??, internal rotation to T12. There is full passive range of motion. There is pain with elevation and resisted strength testing. There is pain with resisted external rotation. There is mild weakness to supraspinatus testing, no obvious weakness to external rotation. Lift-off test is normal. The patient has a painful arc of abduction and positive impingement signs. There is a negative speed's test and negative Yergason's test. There is no significant pain with cross-arm adduction. No signs of instability or apprehension. Distal neurovascular exam is normal. The patient has a warm and well-perfused upper extremity with capillary refill less than 2 seconds.Sensation is intact to light touch in terminal nerve distributions. The patient has no palpable epitrochlear lymphadenopathy. Imaging: X-Rays: There is no obvious glenohumeral arthritis. Some subacromial space narrowing without obvious superior migration of the humeral head. MRI: Personally reviewed from 12/10/22 of the right shoulder demonstrating a large full thickness tear ofthe supraspinatus and infraspinatus tendons with retraction to the level of the glenoid with evidence of mild atrophy of the muscle bellies. Subscapularis looks to be intact. Mild biceps tendinopathy. No obvious glenohumeral arthritis. Assessment/Plan Right shoulder rotator cuff tear We discussed treatment options. She has a chronic rotator cuff tear. Her rotator cuff musculature still looks reasonably well preserved. We discussed operative and nonoperative options. Talked about the possibility of doing a right shoulder arthroscopy with rotator cuff repair, subacromial decompression, possible biceps tenodesis with indicated procedures. The patient had an opportunity to ask que stions. All questions were answered. The risks and benefits of surgery were discussed with the patient, including but not limited to bleeding, infection, damage to surrounding nerves and structures, need for further surgery, repair failure, anesthesia risk, progression of arthritis, blood clots, and medical risks of surgery. * PAT Phone Note - Emilee Grant RN - 01/26/2023 1:25 PM EST HPI Nory Ceja is a 68 y.o. female who presents with Pre-op Diagnosis * Traumatic complete tear of right rotator cuff, sequela [S46.011S] now scheduled for RIGHT Shoulder arthroscopy, exam under anesthesia, rotator cuff repair, subacromial decompression with biceps tenodesis and any other indicated procedures (Right). Past Medical History: Diagnosis Date Arthritis osteo and rhuematoid Dental disease Dysphagia esophagitis FH: total knee replacement 2018 GERD (gastroesophageal reflux disease) Kidney stones Motion sickness Rheumatoid arthritis (CMS/HCC) Rotator cuff tear arthropathy of right shoulder Family History Problem Relation Name Age of Onset Diabetes Mother Arthritis Other Diabetes Other Hyperlipidemia Other Hypertension Other Social History Tobacco Use Smoking status: Never Smokeless tobacco: Never Vaping Use Vaping Use: Never used Substance Use Topics Alcohol use: No Drug use: Never Comment: Drug use: No drug use SURGICAL HISTORY: Past Surgical History: Procedure Laterality Date HIP ARTHROPLASTY JOINT REPLACEMENT knee - both SPINAL FUSION 12/30/2021 L4/5 MIS TLIF No Known Allergies MEDICATIONS: No current facility-administered medications for this encounter. Current Outpatient Medications: ZyrTEC ALLERGY, if needed. Vitamin B-12, 1 (one) time each day in the morning. diclofenac, APPLY 2 GRAMS TOPICALLY 4 TIMES DAILY estradiol, DIRECTED INTRAVGINALLY TWICE A WEEK FOR 30 DAYS gabapentin, 2 capsules (600 mg) every night. hydroxychloroquine, Take 1 tablet (200 mg) by mouth 2 (two) times a day. lamoTRIgine, every 12 (twelve) hours. meloxicam, Take 10 mg by mouth 1 (one) time each day. nitrofurantoin, every night. omeprazole, 1 (one) time each day in the morning. oxybutynin XL, Take 1 tablet (10 mg) by mouth 1 (one) time each day in the morning. Do not crush, chew, or split. ibuprofen, Symbicort, Inhale 2 puffs. (Patient not taking: Reported on 01/26/2023) Emilee Grant RN * Preprocedure Instructions - Emilee Grant RN - 01/26/2023 1:23 PM EST Current Medications Medication Instructions Cetirizine HCl (ZyrTEC ALLERGY) 10 MG capsule Take as needed Cyanocobalamin (Vitamin B-12) 2500 MCG sublingual tablet Hold day of surgery diclofenac (Voltaren) 1 % topical gel Hold day of surgery estradiol (Estrace) 0.1 MG/GM vaginal cream Take as prescribed gabapentin (Neurontin) 300 MG capsule Take morning of surgery hydroxychloroquine (Plaquenil) 200 MG tablet Take morning of surgery lamoTRIgine (LaMICtal) 150 MG tablet Take morning of surgery meloxicam (Mobic) 15 MG tablet Hold 3-5 days before surgery nitrofurantoin (Macrodantin) 50 MG capsule Take night before surgery omeprazole (PriLOSEC) [address] capsule Take morning of surgery oxybutynin XL (Ditropan-XL) 10 MG 24 hr tablet Take morning of surgery General Preoperative Instructions You will be called the business day before surgery with your arrival time Do not eat or drink anything after midnight except water with your medications unless other instructions are given No alcohol or smoking prior to surgery Arrive on time to avoid delays Parking/Registration procedure explained You MUST have a responsible adult available for transport to and from hospital Visitation policy for the day of surgery reviewed Bring insurance card, photo ID, along with power of erisa attorney, guardianship or advanced directives if applicable Do not bring money, jewelry or other valuables Hibiclens bathing instructions reviewed if applicable Notify surgeon of fever, illness, any changes or if you decide not to have surgery Pediatric patients under 12 years of age (If applicable) No solid food or milk after midnight Formula 6 hours prior to arrival for surgery Breast milk 4 hours prior to arrival surgery Clear liquids 2 hours prior to arrival for surgery Diabetes Instructions (If applicable) Take diabetes medication as instructed You may have up to 4 ounces of apple juice 2 hours prior to arrival for surgery for low glucose documented in this encounter Plan of Treatment Not on file documented as of this encounter Procedures Procedure Name Priority Date/Time Associated Diagnosis Comments NM SHLDR ARTHROSCOP,SURG,W/ROTA T CUFF REPR 02/04/2023 10:05 AM EST Traumatic complete tear of right rotator cuff, sequela documented in this encounter Visit Diagnoses Diagnosis Traumatic complete tear of right rotator cuff, sequela documented in this encounter Administered Medications Inactive Administered Medications - up to 3 most recent administrations Medication Order MAR Action Action Date Dose Rate Site acetaminophen (Tylenol) tablet 650 mg 650 mg, Oral, Every 6 hours PRN, Starting on Tue02/04/23 at 0740, Until Tue02/04/23 at 1248, Routine, Holding - Preprocedure, mild pain Given 02/04/2023 8:16 AM EST 650 mg aprepitant (Emend) capsule 40 mg 40 mg, Oral, Once, 1 dose, On Tue02/04/23 at 0800, Routine, Holding - Preprocedure Given 02/04/2023 8:16 AM EST 40 mg droperidol (Inapsine) injection 0.625 mg 0.625 mg, Intravenous, Once as needed, 1 dose, Starting on Tue02/04/23 at 1236, Until Tue02/04/23 at 1624, Routine, Recovery (Phase I only), nausea, vomiting fentaNYL (Sublimaze) injection 25 mcg 25 mcg, Intravenous, Every 5 min PRN, 2 doses, Starting on Tue02/04/23 at 1236, Until Tue02/04/23 at 1624, Routine, Recovery (Phase I only), pain score of 3-4 out of 10 lactated Ringer's infusion 100 mL/hr, Intravenous, Continuous, Starting on Tue02/04/23 at 0800, Until Tue02/04/23 at 1624, Routine New Bag 02/04/2023 10:18 AM EST lidocaine (Xylocaine) 1 % injection 0.5 mL 0.5 mL, Injection, Once as needed, 1 dose, Starting on Tue02/04/23 at 0740, Until Tue02/04/23 at 0816, Routine, Holding - Preprocedure, If needed to start an IV. Given 02/04/2023 8:16 AM EST 0.5 mL lidocaine-EPINEPHrine (Xylocaine W/EPI) 1 %-1:092512 injection As needed, Starting on Tue02/04/23 at 1053, Until Tue02/04/23 at 1248, Routine, Intraprocedure Given 02/04/2023 10:53 AM EST 11 mL naloxone (Narcan) injection 0.4 mg 0.4 mg, Intravenous, As needed, Starting on Tue02/04/23 at 1236, Until Tue02/04/23 at 1624, Routine, Recovery (Phase I only), respiratory depression ondansetron (Zofran) injection 4 mg 4 mg, Intravenous, Once as needed, 1 dose, Starting on Tue02/04/23 at 1236, Until Tue02/04/23 at 1624, Routine, Recovery (Phase I only), nausea, vomiting ondansetron ODT (Zofran-ODT) disintegrating tablet 4 mg 4 mg, Oral, Once, 1 dose, On Tue02/04/23 at 0800, Routine, Holding - Preprocedure Given 02/04/2023 8:16 AM EST 4 mg oxyCODONE (Roxicodone) immediate release tablet 10 mg 10 mg, Oral, Once as needed, 1 dose, Starting on Tue02/04/23 at 1236, Until Tue02/04/23 at 1624, Routine, Recovery (Phase I only), pain score of 6-8 out of 10 oxyCODONE (Roxicodone) immediate release tablet 5 mg 5 mg, Oral, Once as needed, 1 dose, Starting on Tue02/04/23 at 1236, Until Tue02/04/23 at 1624, Routine, Recovery (Phase I only), pain score of 3-5 out of 10 sodium chloride 0.9 % flush 10 mL 10 mL, Intravenous, Every 8 hours PRN, Starting on Tue02/04/23 at 0740, Until Tue02/04/23 at 1624, Routine, Holding - Preprocedure, line care sodium chloride 0.9 % flush 10 mL 10 mL, Intravenous, As needed, Starting on Tue02/04/23 at 0740, Until Tue02/04/23 at 1624, Routine, Holding - Preprocedure, line care documented in this encounter Active and Recently Administered Medications Times are shown in EST. Scheduled Medication Order 02/02/2023 02/03/2023 02/04/2023 aprepitant (Emend) capsule 40 mg (COMPLETED) 40 mg, Oral, Once, 1 dose, On Tue02/04/23 at 0800, Routine, Holding - Preprocedure 0816 (Given - Provid er: Sunitha Portillo RN) ipratropium-albuterol (Duo-Neb) 0.5-2.5 mg/3 mL nebulizer solution 3 mL 3 mL, Nebulization, Once, 1 dose, On Tue02/04/23 at 1300, Routine, Recovery (Phase I only) 1300 (Canceled Entry - Provider: Automatic Discharge Provider - Comment: Automatically canceled at discontinue of medication order) lactated Ringer's infusion 20 mL/hr, Intravenous, Once, 1 dose, On Tue02/04/23 at 1300, Routine 1300 (Canceled Entry - Provider: Automatic Discharge Provider - Comment: Automatically canceled at discontinue of medication order) ondansetron ODT (Zofran-ODT) disintegrating tablet 4 mg (COMPLETED) 4 mg, Oral, Once, 1 dose, On Tue02/04/23 at 0800, Routine, Holding - Preprocedure 0816 (Given - Provid er: Sunitha Portillo RN) Continuous Medication Order 02/02/2023 02/03/2023 02/04/2023 lactated Ringer's infusion 100 mL/hr, Intravenous, Continuous, Starting on Tue02/04/23 at 0800, Until Tue02/04/23 at 1624, Routine 1018 (New Bag - Prov ider: Tad Smyth MD)1158 (Anesthesia Volume Adjustment - Provider: Tad Smyth MD)1247 (Stopped - Provider: Tad Smyth MD) PRN Medication Order 02/02/2023 02/03/2023 02/04/2023 acetaminophen (Tylenol) tablet 650 mg (CANCELED) 650 mg, Oral, Every 6 hours PRN, Starting on Tue02/04/23 at 0740, Until Tue02/04/23 at 1248, Routine, Holding - Preprocedure, mild pain 0816 (Given - Provid er: Sunitha Portillo RN) droperidol (Inapsine) injection 0.625 mg 0.625 mg, Intravenous, Once as needed, 1 dose, Starting on Tue02/04/23 at 1236, Until Tue02/04/23 at 1624, Routine, Recovery (Phase I only), nausea, vomiting fentaNYL (Sublimaze) injection 25 mcg 25 mcg, Intravenous, Every 5 min PRN, 2 doses, Starting on Tue02/04/23 at 1236, Until Tue02/04/23 at 1624, Routine, Recovery (Phase I only), pain score of 3-4 out of 10 lidocaine (Xylocaine) 1 % injection 0.5 mL (COMPLETED) 0.5 mL, Injection, Once as needed, 1 dose, Starting on Tue02/04/23 at 0740, Until Tue02/04/23 at 0816, Routine, Holding - Preprocedure, If needed to start an IV. 0816 (Given - Provid er: Sunitha Portillo RN) lidocaine-EPINEPHrine (Xylocaine W/EPI) 1 %-1:654101 injection (CANCELED) As needed, Starting on Tue02/04/23 at 1053, Until Tue02/04/23 at 1248, Routine, Intraprocedure 1053 (Given - Provid er: Shadi Mims MD) naloxone (Narcan) injection 0.4 mg 0.4 mg, Intravenous, As needed, Starting on Tue02/04/23 at 1236, Until Tue02/04/23 at 1624, Routine, Recovery (Phase I only), respiratory depression ondansetron (Zofran) injection 4 mg 4 mg, Intravenous, Once as needed, 1 dose, Starting on Tue02/04/23 at 1236, Until Tue02/04/23 at 1624, Routine, Recovery (Phase I only), nausea, vomiting oxyCODONE (Roxicodone) immediate release tablet 10 mg(Linked Group 1) 10 mg, Oral, Once as needed, 1 dose, Starting on Tue02/04/23 at 1236, Until Tue02/04/23 at 1624, Routine, Recovery (Phase I only), pain score of 6-8 out of 10 oxyCODONE (Roxicodone) immediate release tablet 5 mg(Linked Group 1) 5 mg, Oral, Once as needed, 1 dose, Starting on Tue02/04/23 at 1236, Until Tue02/04/23 at 1624, Routine, Recovery (Phase I only), pain score of 3-5 out of 10 sodium chloride 0.9 % flush 10 mL(Linked Group 2) 10 mL, Intravenous, Every 8 hours PRN, Starting on Tue02/04/23 at 0740, Until Tue02/04/23 at 1624, Routine, Holding - Preprocedure, line care sodium chloride 0.9 % flush 10 mL(Linked Group 2) 10 mL, Intravenous, As needed, Starting on Tue02/04/23 at 0740, Until Tue02/04/23 at 1624, Routine, Holding - Preprocedure, line care Linked Groups Order Group 1: oxyCODONE (Roxicodone) immediate release tablet 5 mgJump to med 5 mg, Oral, Once as needed, 1 dose, Starting on Tue02/04/23 at 1236, Until Tue02/04/23 at 1624, Routine, Recovery (Phase I only), pain score of 3-5 out of 10 Or oxyCODONE (Roxicodone) immediate release tablet 10 mgJump to med 10 mg, Oral, Once as needed, 1 dose, Starting on Tue02/04/23 at 1236, Until Tue02/04/23 at 1624, Routine, Recovery (Phase I only), pain score of 6-8 out of 10 Group 2: Insert peripheral IV (CANCELED) Once, On Tue02/04/23 at 0741, For 1 occurrence, Holding - Preprocedure And Saline lock IV (CANCELED) Continuous, Starting on Tue02/04/23 at 0741, Until Specified, Holding - Preprocedure And sodium chloride 0.9 % flush 10 mLJump to med 10 mL, Intravenous, Every 8 hours PRN, Starting on Tue02/04/23 at 0740, Until Tue02/04/23 at 1624, Routine, Holding - Preprocedure, line care And sodium chloride 0.9 % flush 10 mLJump to med 10 mL, Intravenous, As needed, Starting on Tue02/04/23 at 0740, Until Tue02/04/23 at 1624, Routine, Holding - Preprocedure, line care documented in this encounter Additional Health Concerns Assessment Noted Time A fall risk assessment has been complete d for the patient 12/14/2022 1:02 PM EDT A Body Mass Index follow-up plan has been documented for the patient 12/15/2022 3:27 PM EDT documented as of this encounter Care Teams Store Product Demonstrator Relationship Specialty Start Date End Date Amber Bedolla APRN [address] [id number] PCP - General 07/18/20 Tarik Cadet MD [address] [address] Surgeon Neurosurgery 05/25/21 documented as of this encounter
--- OUTSIDE RECORDS SUMMARY | 2024-02-08 13:13 | XMS_ITS | Encounter Summary ---
Author Organization [facility] Address [address] [place] [address] Care Team Providers Care Treating Engineer Name Role Phone Amber Bedolla Antonio PALAFOX Primary Care Provider [phone] Tarik Cadet MD Unavailable [phone] Reason for Referral * Imaging (Routine) - Closed Specialty Diagnoses / Procedures Referred By Baltazar marie Referred To Contact Radiology Diagnoses Traumatic complete tear of right rotator cuff, subsequent encounter Procedures MR Shoulder Right wo IV Contrast Shadi Mims MD [address] [address] Phone: tel: fax: Referral ID Status Reason Start Date Expiration Date Visits Re quested Visits Authorized [id number] Closed 11/23/2022 05/24/2024 1 1 Reason for Visit * Reason Comments Follow-up Encounter Details Date Type Department Care Team (Late st Contact Info) Description 11/23/2022 9:10 AM EDT Office Visit [facility] [address], [address] [place] [address] Shadi Mims MD [address] [place] [address] Traumatic complete tear of right rotator cuff, subsequent encounter (Primary Dx); Rotator cuff injury, right, sequela Social History Tobacco Use Types Packs/Day Years [...] drink first t mony in the morning (EYE-SUPERVISOR ORDER TAKERS) to steady your nerves or to get [...] Sign Reading Time Taken Comments Blood Pressure 144/79 11/23/2022 8:47 AM EDT Pulse - - Temperature - - Respiratory Rate - - Oxygen Saturation - - Inhaled Oxygen Concentration - - Weight 80.7 kg (178 lb) 11/23/2022 8:47 AM EDT Height 160 cm (5' 3 ) 11/23/2022 8:47 AM EDT Body Mass Index 31.53 11/23/2022 8:47 AM EDT documented in this encounter Miscellaneous Notes * Progress Notes - Mariella Orozco, - 11/23/2022 9:10 AM EDT History of present illness: Marianela Ceja is a 67 y.o. female here for evaluation of her right shoulder. Patient had a falling injury couple of years ago where she injured her right shoulder. We saw renae in April of 2021 and she had an MRI at that time that demonstrated that she had a rotator cuff tear that was retracted to the level of the glenoid. At that time she had opted for conservativemanagement as she was scheduled for an L4-L5 lumbar fusion and wanted to recover from her surgery prior to pursuing any operative treatment for her shoulder. Come spring and summertime she had other medical things come up such as getting COVID and then being diagnosed with rheumatoid arthritis (curr ently on Plaquinel) that delayed her following up. She comes in today to talk about options for hershoulder. She reports that she continues to have pain in her shoulder and trouble sleeping at night. She reports that she has weakness with overhead activities. Patient's last MRI is from 04/2021 I have reviewed and updated the patient's [...] person, place and time Right SHOULDER EXAM No obvious atrophy or deformity. No scapular dyskinesia. Patient has tenderness about the anterolateral shoulder. Active elevation is 170??, external rotation at the side 45??, internal rotation to T12. There is full passive range of motion. There is pain with elevation and resisted strength testing. There is pain with resisted external rotation. There is mild weakness to supraspinatus testing, no obvious weakness to external rotation. The patient has a painful arc of abduction and positive impingement signs. There is a positive speed's test. Distal neurovascular exam is normal. The patient has a warm and well-perfused upper extremity with capillary refill less than 2 seconds.Sensation is intact to light touch in terminal nerve distributions. The patient has no palpable epitrochlear lymphadenopathy. Imaging: X-Rays: Personally reviewed Grashey scap Y and axillary views of the right shoulder obtained and personallyreviewed. Humeral head remains well centered without any obvious superior migration. No evidence ofglenohumeral arthritis. Assessment/Plan Right shoulder full thickness, retracted rotator cuff tear We discussed treatment options. Patient would like to pursue operative treatment for her right shoulder. Since the patient had a large full-thickness retracted rotator cuff tear back in April of 2001, we would like to obtain an MRI at this time to evaluate her for any muscular atrophy to see if she would likely still benefit from rotator cuff repair. We will see her back after the MRI to talk about potential surgical options at that time. Mariella Orozco Cosigned by Shadi Mims MD at 11/23/2022 5:10 PM EDT Associated attestation - Shadi Mims MD - 11/23/2022 5:10 PM EDT I saw and evaluated the patient with the resident/fellow. I discussed the case with the resident/fellow and agree with the findings and plan as documented. documented in this encounter Plan of Treatment Not on file documented as of this encounter Results * MR Shoulder Right [...] signing this report, I, the attending physician, attestthat I have personally reviewed the images/data for the aboveexamination(s) and agree with the final edited report. Drafted by Nory Daniels MD on 12/10/2022 3:56 PM Final report signed by Steve Krishnan MD on 12/10/2022 4:32 PM Shadi Mims MD IM MRI PROCEDURES Final Result * XR Shoulder Right 2+ Views (11/23/2022 [...] complete tear of right rotator cuff, subsequent encounter- Primary Rotator cuff injury, right, sequela Acute pain of right shoulder Traumatic complete tear of right rotator cuff, subsequent encounter documented in this encounter Additional Health Concerns Assessment Noted Time A fall risk assessment has been complete d for the patient 11/23/2022 8:46 AM EDT A Body Mass Index follow-up plan has been documented for the patient 11/23/2022 5:10 PM EDT documented as of this encounter Care Teams Treating Engineer Relationship Specialty Start Date End Date Amber Bedolla APRN [address] [place] [address] PCP - General 07/18/20 Tarik Cadet MD [address] [place] [address] Surgeon Neurosurgery 05/25/21 documented as of this encounter
--- OUTSIDE RECORDS SUMMARY | 2024-02-08 13:13 | XMS_ITS | Encounter Summary ---
Author Organization [facility] Address [address] [place] [id number] Care Team Providers Care Painter Mirror Name Role Phone ChiomaAmber barrios Antonio PALAFOX Primary Care Provider [phone] Tarik Cadet MD Unavailable [phone] Encounter Details Date Type Department Care Team (Latest Contact Info) Description 02/08/2023 Travel Social History Tobacco Use Types Packs/Day [...] drink first t mony in the morning (EYE-DISPLAY FABRICATOR) to steady your nerves or to get [...] documented as of this encounter Care Teams Painter Mirror Relationship Specialty Start Date End Date Amber Bedolla APRN [address] [id number] PCP - General 07/18/20 Tarik Cadet MD [address] [facility] [address] [place] [address] Surgeon Neurosurgery 05/25/21 documented as of this encounter
--- OUTSIDE RECORDS SUMMARY | 2024-02-08 13:13 | XMS_ITS | Encounter Summary ---
Author Organization Healthcare Address [address] [id number] Care Team Providers Care Space Operations Officer Name Role Phone Amber Bedolla Antonio PALAFOX Primary Care Provider [phone] Tarik Cadet MD Unavailable [phone] Encounter Details Date Type Department Care Team (Late st Contact Info) Description 05/09/2022 Orders Only [place] [facility] [address] [place] [address] Koko Arambula PA [address] [place] [address] S/P lumbar spinal fusion (Primary [...] drink first t mony in the morning (EYE-BROKER ASSOCIATE) to steady your nerves or to get [...] XR Lumbar Spine 2 or 3 Views (05/10/2022 1:03 PM EST) Anatomical Region Laterality Modality Spine, L-spine Digital Radiogra phy Impressions 05/10/2022 1:06 PM EST No hardware failure or loosening. CRITICAL RESULT: ?? No. COMMUNICATION: Per this written report. Dictated by Cyril Stacy MD on 05/10/2022 1:05 PM Signed by Cyril Stacy MD on 05/10/2022 1:06 PM Narrative 05/10/2022 1:06 PM EST Exam/Procedure: XR LUMBAR SPINE 2 OR 3 VIEWS ordered by KOKO ARAMBULA [id number] CLINICAL INDICATION: low back pain TECHNIQUE: XR LUMBAR SPINE 2 OR 3 VIEWS COMPARISON: 22 February 2022 FINDINGS: L4-5 posterior fusion. No hardware failure or loosening. Degenerative changes are similar to prior most pronounced at L5-S1. Procedure Note Cyril Stacy MD - 05/10/2022 Exam/Procedure: XR LUMBAR SPINE 2 OR 3 VIEWS ordered by KOKO [id number] CLINICAL INDICATION: low back pain TECHNIQUE: XR LUMBAR SPINE 2 OR 3 VIEWS COMPARISON: 22 February 2022 FINDINGS: L4-5 posterior fusion. No hardware failure or loosening. Degenerativechanges are similar to prior most pronounced at L5-S1. IMPRESSION: No hardware failure or loosening. CRITICAL RESULT: No. COMMUNICATION: Per this written report. Dictated by Cyril Stacy MD on 05/10/2022 1:05 PM Signed by Cyril Stacy MD on 05/10/2022 1:06 PM Koko BURGER IMG XR PROCEDURES Final Result documented in this encounter Visit Diagnoses Diagnosis S/P lumbar spinal fusion- Primary Arthrodesis status S/P lumbar spinal fusion Arthrodesis status documented in this encounter Additional Health Concerns Assessment Noted Time A fall risk assessment has been complete d for the patient 12/23/2021 11:53 AM EDT documented as of this encounter Care Teams Space Operations Officer Relationship Specialty Start Date End Date Amber Bedolla APRN [address] [id number] PCP - General 07/18/20 Tarik Cadet MD [id number] [place] [address] Surgeon Neurosurgery 05/25/21 documented as of this encounter
--- OUTSIDE RECORDS SUMMARY | 2024-02-08 13:13 | XMS_ITS | Encounter Summary ---
Author Organization [facility] Address [address] [place] [address] Care Team Providers Care Acls Specialist Name Role Phone Amber Bedolla Antonio PALAFOX Primary Care Provider [phone] Tarik Cadet MD Unavailable [phone] Reason for Visit * Auth/Cert (Routine) Specialty Diagnoses / Procedures Referred By Contremi t Referred To Contact Diagnoses Traumatic complete tear of right rotator cuff, sequela Traumatic complete tear of right rotator cuff, sequela [S46.011S] Procedures HI SHLDR ARTHROSCOP,SURG,W/ROTAT CUFF REPR HI ARTHROSCOPY SHOULDER SURGICAL BICEPS TENODESIS RIGHT Shoulder arthroscopy, exam under anesthesia, rotator cuff repair, subacromial decompression with biceps tenodesis and any other indicated procedures Shadi Mims MD [address] [address] Phone: tel: fax: [facility] [address] [place] [address] Phone: tel: Referral ID Status Reason Start Date Expiration Date Visits Re quested Visits Authorized [id number] 1 1 Encounter Details Date Type Department Care Team (Late st Contact Info) Description 02/04/2023 6:55 AM EST - 02/04/2023 2:22 PM [facility] Hospital Encounter [facility] [address] [place] [address] Shadi Mims MD [address] [facility] [address] [place] [address] Discharge Disposition: Home or Self Care Social [...] drink first t mony in the morning (EYE-CHIEF I DISPATCHER) to steady your nerves or to get [...] Sign Reading Time Taken Comments Blood Pressure 138/73 02/04/2023 1:15 PM EST Pulse 81 02/04/2023 1:30 PM EST Temperature 36.1 ??C (97 ??F) 02/04/2023 1:20 PM EST Respiratory Rate 16 02/04/2023 1:30 PM EST Oxygen Saturation 95% 02/04/2023 1:30 PM EST Inhaled Oxygen Concentration - - [...] numbers if you have any concerns: Office: [phone] or [phone] After hours or weekends: [phone] to contact the sports medicine doctor literacy consultant. Post-Anesthesia and Postoperative Instructions (UK) In [...] Room or call the Emergency Department at [phone]. Smoking and its health risks Smoking is [...] help quitting smoking, call the National Cancer [place]'s Quitline toll free at or ask your doctor for help. Weight Management Weighing too much is not good for your health. Being overweight increases your risk of health conditions such as heart problems, high blood pressure, type 2 diabetes, and certain types of cancer. Being overweight can also increase your risk for osteoarthritis (eo-ost-db-pog-DFAM-ckf) (joint disease), sleep apnea (abnormal breathing at [...] risk of health problems. Ask your dietitian, sports equipment racker or doctor about a weight loss goal [...] of controlled substances: Drug Enforcement Agency (JC): http://www.deadiversion.3sunoj.gov/drug_disposal/takeback/index.htm National Association of Drug Diversion Investigators (NADDI): http://rxdrugdropbox.org/ [place] Office of Drug Control Policy: http://odcp.wi.gov/Prescription+Drug+Drop+Box+Sites.htm Are there concerns about or ? Before [...] that tracks prescriptions of controlled substances in [place]. The GRIS report tells your doctor if [...] or your doctor may then call the [place] Drug Enforcement and Professional Practices Branch at [...] Your local health department may offer these. [place]'s resources to help you quit: http://www.uky.edu/TobaccoFree/ - Click on the Quit Here! tab. A telephone quit line: (5-354-CUYCYNQ) Web sites: www.smokefree.gov, www.becomeanex.org, www.RawFlow.Accelergy Tobacco Treatment Counselors: Call 803-995-9528. Medicare and Medicaid pay for this. employees, retirees, and their spouses or sponsored dependents can get free nicotine replacementtherapy and coaching. Visit www.[facility]/HR/Wellness/consults.html. Otoniel webb [facility]: Free pamphlets on [...] * Peripheral Nerve Block, Upper Extremity (UK) (Dutch) * UltraSling, How to Dress (UK) (Dutch) documented in this encounter Medications at Time [...] AM EST Operative Note Date: 02/04/23 Location: [facility] OR Name: Marianela Ceja, : 1955, Attending Surgeon(s): Shadi Palafox - Primary Towel Sorter(s): * David Wilson MD - Fellow ASA: II Blood Administration: Blood Product Administration History None Estimated Blood Loss: Minimal Drains: * None in log * Implants Type Name Action Serial No. Corona ANCHOR ALL SUTURE QFIX 2.8MM - [id number] Implanted Corona ANCHOR ULTRA TWINFIX 5.5 - [id number] Implanted Complications: None; patient tolerated the procedure well. PREOPERATIVE DIAGNOSIS: Right shoulder massive full-thickness rotator cuff tear. POSTOPERATIVE DIAGNOSES: 1. Right shoulder massive full-thickness rotator cuff tear. 2. Biceps tendinopathy PROCEDURE PERFORMED: 1. Right shoulder diagnostic arthroscopy. 2. Arthroscopic biceps tenodesis. 3. Arthroscopic subacromial decompression. 4. Arthroscopic rotator cuff repair. ATTENDING SURGEON: Shadi Mims MD. CUSTOMER SUCCESS ADVOCATE SURGEON: David Wilson MD ANESTHESIA: General plus [...] 02/04/2023 10:52 AM EST Date: 02/04/23 Location: [facility] OR Name: Marianela Ceja : 1955, Diagnoses: Pre-op Diagnosis Traumatic complete tear of right rotator cuff, sequela Post-op Diagnosis Traumatic complete tear of right rotator cuff, sequela Procedure(s): Right shoulder arthroscopic rotator cuff repair with biceps tenodesis. Attending Surgeon(s): * Shadi Mims - Primary Towel Sorter(s): * David Wilson MD - Fellow Anesthesia: * No anesthesia type entered * ASA: II Blood Administration: Blood Product Administration History None Estimated Blood Loss: Minimal Drains: * None in log * Implants Type Name Action Serial No. Corona ANCHOR ALL SUTURE QFIX 2.8MM - [id number] Implanted Corona ANCHOR ULTRA TWINFIX 5.5 - [id number] Implanted Specimen: Findings: Massive rotator cuff tear [...] The patient had an opportunity to ask questions. All questions were answered. The risks and benefits of surgery were discussed with the patient, including but not limited to bleeding, infection, damage to surrounding nerves and structures, need for further surgery, repair failure, anesthesia risk, progression of arthritis, blood clots, and medical risks of surgery. * PAT Phone Note - Emilee Grant RN - 01/26/2023 1:25 PM EST ZAHIDA Ceja is a 68 y.o. female who [...] card, photo ID, along with power of student services rep, guardianship or advanced directives if applicable Do [...] Procedure Name Priority Date/Time Associated Diagnosis Comments HI ANI ARTHROSCOP,SURG,W/ROTA T CUFF REPR 02/04/2023 10:05 AM EST Traumatic complete tear of right rotator cuff, sequela documented in this encounter Visit Diagnoses Not on filedocumented in this encounter Administered Medications Inactive Administered [...] Given 02/04/2023 8:16 AM EST 0.5 mL naloxone (Narcan) injection 0.4 mg 0.4 [...] Sunitha Portillo RN) lidocaine-EPINEPHrine (Xylocaine W/EPI) 1 %-1:[id number] injection (CANCELED) As needed, Starting on Tue02/04/23 [...] documented as of this encounter Care Teams Acls Specialist Relationship Specialty Start Date End Date Amber Bedolla APRN [address] [place] [address] PCP - General 07/18/20 Tarik Cadet MD [address] [place] [address] Surgeon Neurosurgery 05/25/21 documented as of this encounter
--- OUTSIDE RECORDS SUMMARY | 2024-02-08 13:13 | XMS_ITS | Encounter Summary ---
Author Organization [facility] Address [address] [id number] Care Team Providers Care Drop Board Worker Name Role Phone ChiomaAmber Antonio PALAFOX Primary Care Provider [phone]- [phone] Tarik Cadet MD Unavailable [phone] Reason for Referral * Consultation (Routine) - Authorized Specialty Diagnoses / Procedures Referred By Baltazar marie Referred To Contact Physical Therapy Diagnoses S/P rotator cuff repair Funmilayo Clark APRN [address] [facility] [address] [place] [address] Phone: tel: fax: Referral ID Status Reason Start Date Expiration Date Visits Requested Visits Authorized [id number] Authorized Consult and Treat 04/05/2023 10/04/2024 1 1 Encounter Details Date Type Department Care Team (Late st Contact Info) Description 04/05/2023 11:10 AM EST Office Visit [facility] Orthopaedic Surgery & Sports Medicine [address], [address] [place] [address] Shadi Mims MD [address] [place] [address] S/P rotator cuff repair (Primary [...] drink first t mony in the morning (EYE-FRET SAW OPERATOR) to steady your nerves or to [...] Progress Notes - Shadi Mims MD - 04/05/2023 11:10 AM EST Orthopedic Sports Surgery Office Note Date of surgery: 02/04/2023 Procedure: 1. Right shoulder diagnostic arthroscopy. 2. Arthroscopic biceps tenodesis. 3. Arthroscopic subacromial decompression. 4. Arthroscopic rotator cuff repair. HPI: She is here for follow-up of the above procedure. Overall the patient feels they have been doing well since surgery. She has not started physical therapy per our instruction. No issues.. Physical Exam: Right shoulder demonstrates: Incision: Postop incisions are well approximated without any surrounding erythema or signs of infection ROM: Fires deltoid, forward flexes to about 80??, externally rotates to 30??. Sensation and motor function are intact to the musculocutaneous, axillary, median, radial, and ulnar nerve distributions Assessment/Plan: Status post the aforementioned procedure. - Continue physical therapy following Conservative rotator cuff repair protocol - No heavy lifting with the arm until 6 months. - Follow-up in 6 weeks. documented in this encounter Plan of Treatment Scheduled Referrals Name Type Priority Associated Diagnoses Order Schedule Physical Therapy (outgoing) Outpatient Referral Routine S/P rotator cuff repair 1 Occurrences starting 04/05/2023 until 10/03/2024 documented as of this encounter Visit Diagnoses Diagnosis S/P rotator cuff repair- Primary documented in this encounter Additional Health Concerns Assessment Noted Time A fall risk assessment has been complete d for the patient 12/14/2022 1:02 PM EDT A Body Mass Index follow-up plan has been documented for the patient 04/05/2023 12:05 PM EST documented as of this encounter Care Teams Drop Board Worker Relationship Specialty Start Date End Date Amber Bedolla APRN [address] [place] [address] PCP - General 07/18/20 Tarik Cadet MD [address] [address] Surgeon Neurosurgery 05/25/21 documented as of this encounter
--- OUTSIDE RECORDS SUMMARY | 2024-02-08 13:13 | XMS_ITS | Encounter Summary ---
Author Organization [facility] Address [address] [id number] Care Team Providers Care Family Nurse Practitioner Name Role Phone Amber Bedolla VIVIENNE Primary Care Provider [phone] Tarik Cadet MD Unavailable [phone] Reason for Visit * Reason Comments Follow-up Encounter Details Date Type Department Care Team (Late st Contact Info) Description 12/14/2022 1:10 PM EDT Office Visit [facility] Orthopaedic Surgery & Sports Medicine [address] [facility], [address] [place] [address] Shadi Mims MD [address] [facility] [address] [place] [address] Traumatic complete tear of right [...] drink first t mony in the morning (EYE-DIRECTOR INDUSTRIAL MUSEUM) to steady your nerves or to get [...] Sign Reading Time Taken Comments Blood Pressure 121/77 12/14/2022 1:02 PM EDT Pulse - - Temperature - - Respiratory Rate - - Oxygen Saturation - - Inhaled Oxygen Concentration - - Weight 80.7 kg (178 lb) 12/14/2022 1:02 PM EDT Height 160 cm (5' 3 ) 12/14/2022 1:02 PM EDT Body Mass Index 31.53 12/14/2022 1:02 PM EDT documented in this encounter Miscellaneous Notes * Progress Notes - Mariella Orozco, - 12/14/2022 1:10 PM EDT History of present illness: Marianela [...] of her horses because of her shoulder. I have reviewed and updated the patient's [...] blood clots, and medical risks of surgery. The patient voiced understanding of the risks and benefits and provided written consent to the procedure. Patient will be scheduled for surgery. Mariella Oroczo DO Cosigned by Shadi Mims MD at 12/15/2022 3:26 PM EDT Associated attestation - Shadi Mims MD - 12/15/2022 3:26 PM EDT I saw and evaluated the patient with the resident/fellow. I discussed the case with the resident/fellow and agree with the findings and plan as documented. The patient is a 67-year-old with a history of right shoulder pain. She has a chronic rotator cuff tear. Her new MRI shows evidence of a large tear. The muscular still looks to be in relatively good condition with some mild to moderate atrophy of the infraspinatus. We discussed treatment options including nonoperative treatment, rotator cuff repair, or shoulder arthroplasty. She wishes to proceedwith right shoulder arthroscopy and rotator cuff repair. We discussed the rehabilitation process and she will have restrictions for up to 6 months. The patient understands the risks and benefits of surgery. The patient understands the risks of continued pain, continued functional deficit, failure of healing, stiffness, neurovascular injury, infection, possible need for further surgery, anesthesiaand medical complications and wishes to proceed. documented in this encounter Plan of Treatment [...] documented as of this encounter Care Teams Family Nurse Practitioner Relationship Specialty Start Date End Date Amber Bedolla APRN [address] [address] PCP - General 07/18/20 Tarik Cadet MD [address] [facility] [address] [place] [address] Surgeon Neurosurgery 05/25/21 documented as of this encounter
--- OUTSIDE RECORDS SUMMARY | 2024-02-08 13:13 | XMS_ITS | Encounter Summary ---
Author Organization [facility] Address [address] [place] [address] Care Team Providers Care Helpdesk Administrator Name Role Phone ChiomaAmber barrios Antonio PALAFOX Primary Care Provider [phone] Tarik Cadet MD Unavailable [phone] Encounter Details Date Type Department Care Team (Latest Contact Info) Description 05/10/2022 Travel Social History Tobacco Use Types Packs/Day [...] drink first t mony in the morning (EYE-CHEF CONCIERGE) to steady your nerves or to get [...] suspected to have Coronavirus/COVID-19? No / Unsure 05/10/2022 12:54 PM EST documented as of this encounter Plan of Treatment Not on file documented as of this encounter Visit Diagnoses Not on filedocumented in this encounter Additional Health Concerns Assessment Noted Time A fall risk assessment has been complete d for the patient 12/23/2021 11:53 AM EDT A Body Mass Index follow-up plan has been documented for the patient 05/11/2022 12:39 PM EST documented as of this encounter Care Teams Helpdesk Administrator Relationship Specialty Start Date End Date Amber Bedolla APRN [facility] [id number] PCP - General 07/18/20 Tarik Cadet MD [address] [facility] [address] [place] [address] Surgeon Neurosurgery 05/25/21 documented as of this encounter
--- OUTSIDE RECORDS SUMMARY | 2024-02-08 13:13 | XMS_ITS | Encounter Summary ---
Author Organization [facility] Address [address] [id number] Care Team Providers Care Art Gallery Internship Name Role Phone Amber Bedolla VIVIENNE Primary Care Provider [phone]- [phone] Tarik Cadet MD Unavailable [phone] Reason for Visit * Auth/Cert (Routine) Specialty Diagnoses / Procedures Referred By Contac t Referred To Contact Diagnoses Traumatic complete tear of right rotator cuff, sequela Traumatic complete tear of right rotator cuff, sequela [S46.011S] Procedures RI SHLDR ARTHROSCOP,SURG,W/ROTAT CUFF REPR RI ARTHROSCOPY SHOULDER SURGICAL BICEPS TENODESIS RIGHT Shoulder arthroscopy, exam under anesthesia, rotator cuff repair, subacromial decompression with biceps tenodesis and any other indicated procedures Shadi Mims MD [facility] [address] [address] Phone: tel: fax: [facility] [address] [place] [address] Phone: tel: Referral ID Status Reason Start Date Expiration Date Visits Re quested Visits Authorized [id number] 1 1 Encounter Details Date Type Department Care Team (Late st Contact Info) Description 02/04/2023 10:16 AM EST Anesthesia Event [facility] [address] [place] [address] Chandler Pate MD [address] [place] [address] Anesthesia Record Procedure Summary Procedure Name Responsible Anesthesiologist Anesthesia Start Time Anesthesia Stop Time RIGHT Shoulder arthroscopy, rotator cuff repair, subacromial decompression with biceps tenodesis (Right) Chandler Pate MD 02/04/23 1016 02/04/23 1254 Events Date Time Event Comment 02/04/2023 0558 1015 In Room 1016 An Start 1016 An Start Data 1027 An Induction The patient was reevaluated immediately before moderate or deep sedation use and before anesthesia induction. 1030 An Intubation 1046 Anesthesia Ready 1052 Proc Start 1244 Proc Fin 1246 An Extubation 1246 an stop data 1248 Out of Room 1254 Handoff to Receiving I compl eted my handoff to the receiving clinician during which we: 1. Identified the patient 2. Identified the responsible provider 3. Reviewed the pertinent medical history 4. Discussed the surgical course 5. Reviewed intra-op anesthesia management and issues during anesthesia 6. Set expectations for post-procedure period 7. Allowed opportunity for questions and acknowledgement of understanding. 1254 An Stop Meds Name Total lidocaine PF (Xylocaine-MPF) 2% 60 mg propofol (Diprivan) injection 10 mg/mL 1 50 mg rocuronium (ZeMuron) injection 10 mg/mL 50 mg dexamethasone (Decadron) injection 4 mg/ mL 4 mg phenylephrine (Johnathan-Synephrine) prefilled syringe 1 mg/10 mL 100 mcg ondansetron (Zofran) injection 2 mg/mL 4 mg ketorolac 30 MG/ML 15 mg fentaNYL (Sublimaze) injection 100 mcg midazolam (Versed) injection 2 mg 0.25% ropivacaine 30 mL ceFAZolin (Ancef) vial 1 g 2 g phenylephrine in 0.9% NaCl infusion 100 mcg/mL 2.78 mg lactated Ringer's infusion 800 mL * Agents Name O2 Air Sevoflurane Inspired Sevoflurane N2O Inspired N2O * Blood No blood administrations on file. Lines, Drains, and Airways Type Details Placement Removal Wound 12/30/21; N; Yes; In cision; Back; Lower 12/30/21 0000 by Carey Chacon RN Wound 02/04/23; Incision; Shoulder 02/04/23 0000 by Emperatriz Poole RN Peripheral IV Placement Date: 03/29; Placement Time: 08; Catheter Size: 20 G; Orientation: Left, Posterior; Location: Forearm; Site Prep: Chlorhexidine ; Local Anesth: Injectable; Technique: Anatomical landmarks; Inserted by: melany portillo; Insertion Attempts: 1; Patient Tolerance: Tolerated well; Removal Date: 02/04/23; Removal Time: 1331 02/04/23 0828 by Sunitha Portillo RN 02/04/23 1331 by Marj Myles RN ETT Placement Date: 03/29; Placement Time: 1030 (created via procedure documentation); Mask Ventilation: 2; Technique: Direct laryngoscopy; Type: ETT - single; Single Lumen Tube Size: 6.5 mm; Cuffed: Yes; Laryngoscope: Matthias; Blade Size: 3; Location: Oral; Grade View: Grade IIa; Insertion Attempts: 1; Placement Verification: Auscultation, Capnometry; Airway Comments: Atraumatic. No change to dentition. ; Placed by: Resident ; Removal Date: 02/04/23; Removal Time: 1246 02/04/23 1030 by Tad Smyth MD 02/04/23 1246 by Tad Smyth MD documented in this encounter Social History Tobacco [...] drink first t mony in the morning (EYE-LOAN OPERATIONS SPECIALIST) to steady your nerves or to get [...] as of this encounter Miscellaneous Notes * Anesthesia Postprocedure Evaluation - Chandler Pate MD - 02/04/2023 12:55 PM EST Patient: Marianela Ceja Anesthesia Type: general, regional Vitals Value Taken Time BP 115/57 02/04/23 1250 Temp 35.7 02/04/23 1255 Pulse 72 02/04/23 1254 Resp 10 02/04/23 1254 SpO2 96 % 02/04/23 1254 Vitals shown include unvalidated device data. Anesthesia Post Evaluation Patient location during evaluation: PACU Patient participation: complete - patient cannot participate Level of consciousness: baseline and sedated Pain management: adequate (pain score 0-3) Airway patency: natural airway Cardiovascular status: acceptable and hemodynamically stable Respiratory status: acceptable Hydration status: acceptable No notable events documented. * Anesthesia Procedure Notes - Tad Smyth MD - 02/04/2023 11:00 AM EST Associated Order(s): Airway Airway Date/Time: 02/04/2023 10:30 AM Urgency: elective Airway not difficult General Information and Staff Patient location during procedure: OR Anesthesiologist: Chandler Pate MD Resident: Tad Smyth MD Performed: Resident Indications and Patient Condition Indications for airway management: anesthesia Spontaneous Ventilation: absent Preoxygenated: yes Patient position: sniffing Mask difficulty assessment: 2 - vent by mask + OA or adjuvant +/- NMBA Final Airway Details Final airway type: endotracheal airway Successful airway: ETT Cuffed: yes Successful intubation technique: direct laryngoscopy Endotracheal tube insertion site: oral Blade: Matthias Blade size: #3 ETT size (mm): 6.5 Cormack-Lehane Classification: grade IIa - partial view of glottis Placement verified by: chest auscultation and capnometry Measured from: teeth ETT to teeth (cm): 22 Number of attempts at approach: 1 Additional Comments Atraumatic. No change to dentition. Cosigned by Chandler Pate MD at 02/04/2023 11:44 AM EST Associated attestation - Chandler Pate MD - 02/04/2023 11:44 AM EST I was present during all critical and caicedo portions of the procedure(s) and immediately available [facility] the entire duration. See resident note for details. * Anesthesia Procedure Notes - Missy Melton DO - 02/04/2023 10:08 AM ESTAssociated Order(s): Peripheral Block Peripheral Block Patient location during procedure: holding area Start time: 02/04/2023 9:50 AM End time: 02/04/2023 10:00 AM Reason for block: post-op pain management Block is at surgeon's request Staffing Performed: Resident Anesthesiologist: Chandler Pate MD Resident: Missy Melton DO Preanesthetic Checklist Completed: patient identified, IV checked, site marked, risks and benefits discussed, surgical consent, monitors and equipment checked, pre-op evaluation and timeout performed Peripheral Block Prep: ChloraPrep and site prepped and draped Patient monitoring: continuous pulse ox, heart rate and awake overnight monitor Anesthesia block type: Interscalene. Laterality: right Injection technique: single-shot Guidance: ultrasound guided Local infiltration: lidocaine Infiltration strength: 2 % Dose: 3 mL Ultrasound used for needle placement AND ultrasound image retained Needle Needle gauge: 22 G. Needle length: 5 cm Needle localization: anatomical landmarks, paresthesias and ultrasound guidance Needle insertion depth: 5 cm Test dose: negative Medications Administered FentaNYL (Sublimaze) injection, 100 mcg midazolam (Versed) injection, 2 mg 0.25% ropivacaine, 30 mL Assessment Injection assessment: negative aspiration for heme, local visualized surrounding nerve on ultrasound, no paresthesia on injection and incremental injection Paresthesia pain: none Heart rate change: no Cosigned by Chandler Pate MD at 02/04/2023 10:15 AM EST Associated attestation - Chandler Pate MD - 02/04/2023 10:15 AM EST I was present during all critical and caicedo portions of the procedure(s) and immediately available [facility] the entire duration. See resident note for details. * Anesthesia Preprocedure Evaluation - Chandler Pate MD - 02/03/2023 12:33 PM EST Patient: Marianela Ceja Procedure Information Date/Time: 02/04/23954 Procedure: RIGHT Shoulder arthroscopy, exam under anesthesia, rotator cuff repair, subacromial decompression with biceps tenodesis and any other indicated procedures (Right) Location: [facility] OR Surgeons: Shadi Mims MD Relevant Problems Anesthesia (+) Motion sickness GI (+) GERD (gastroesophageal reflux disease) Other (+) Rheumatoid arthritis ([facility]) Anesthesia Evaluation Clinical information reviewed: Med Hx Tobacco Allergies Surg Hx Fam Hx Soc Hx NPO Status Physical Exam Airway Mallampati: II Cardiovascular - normal exam Dental - normal exam Pulmonary - normal exam Neurological - normal exam Oriented: normal to time, normal to place and normal to person and oriented to person, place and time Skin - normal exam Musculoskeletal - normal exam Extremities -normal exam Anesthesia Plan ASA 2 Plan was reviewed with: resident Anesthesia technique(s) discussed with the patient/family: general and regional Anesthesia plan agreed upon was: general and regional Anesthetic plan and risks discussed with patient. Additional Equipment Requests documented in this encounter Plan of Treatment Not on file documented as of this encounter Procedures Procedure Name Priority Date/Time Associated Diagnosis Comments PB ANESTHESIA PLACEHOLDER Routine 02/04/2023 10:30 AM EST RI AN ELECTIVE ENDOTRACHEAL AIRWAY Routine 02/04/2023 10:30 AM EST PB POINT OF CARE IMAGING PLACEHOLDER Routine 02/04/2023 9:50 AM EST documented in this encounter Results * RI AN ELECTIVE ENDOTRACHEAL AIRWAY, PB ANESTHESIA PLACEHOLDER (02/04/2023 10:30 AM EST) Chandler Dooley MD - 02/04/2023 10:30 AM EST Tad Smyth MD ? 02/04/2023 11:01 AM Airway Date/Time: 02/04/2023 10:30 AM Urgency: elective Airway not difficult General Information and Staff Patient location during procedure: OR Anesthesiologist: Chandler Pate MD Resident: Tad Smyth MD Performed: Resident Indications and Patient Condition Indications for airway management: anesthesia Spontaneous Ventilation: absent Preoxygenated: yes Patient position: sniffing Mask difficulty assessment: 2 - vent by mask + OA or adjuvant +/- NMBA Final Airway Details Final airway type: endotracheal airway Successful airway: ETT Cuffed: yes Successful intubation technique: direct laryngoscopy Endotracheal tube insertion site: oral Blade: Matthias Blade size: #3 ETT size (mm): 6.5 Cormack-Lehane Classification: grade IIa - partial view of glottis Placement verified by: chest auscultation and capnometry Measured from: teeth ETT to teeth (cm): 22 Number of attempts at approach: 1 Additional Comments Atraumatic. No change to dentition. us Chandler Pate MD ANESTHESIA ORDERABLES Final R esult * PB POINT OF CARE IMAGING PLACEHOLDER (02/04/2023 9:50 AM EST) Narrative Chandler Pate MD - 02/04/2023 9:50 AM EST Missy Melton DO ? 02/04/2023 10:10 AM Peripheral Block Patient location during procedure: holding area Start time: 02/04/2023 9:50 AM End time: 02/04/2023 10:00 AM Reason for block: post-op pain management Block is at surgeon's request Staffing Performed: Resident Anesthesiologist: Chandler Pate MD Resident: Missy Melton DO Preanesthetic Checklist Completed: patient identified, IV checked, site marked, risks and benefits discussed, surgical consent, monitors and equipment checked, pre-op evaluation and timeout performed Peripheral Block Prep: ChloraPrep and site prepped and draped Patient monitoring: continuous pulse ox, heart rate and awake overnight monitor Anesthesia block type: Interscalene. Laterality: right Injection technique: single-shot Guidance: ultrasound guided Local infiltration: lidocaine Infiltration strength: 2 % Dose: 3 mL Ultrasound used for needle placement AND ultrasound image retained Needle Needle gauge: 22 G. Needle length: 5 cm Needle localization: anatomical landmarks, paresthesias and ultrasound guidance Needle insertion depth: 5 cm Test dose: negative Medications Administered FentaNYL (Sublimaze) injection, 100 mcg midazolam (Versed) injection, 2 mg 0.25% ropivacaine, 30 mL Assessment Injection assessment: negative aspiration for heme, local visualized surrounding nerve on ultrasound, no paresthesia on injection and incremental injection Paresthesia pain: none Heart rate change: no us Shadi Mims MD ANESTHESIA ORDERABLES Final Resu lt documented in this encounter Visit Diagnoses Not on filedocumented in this encounter Administered Medications Inactive Administered Medications - up to 3 most recent administrations Medication Order MAR Action Action Date Dose Rate Site ceFAZolin (Ancef) injection Intravenous, As needed, Starting on Tue02/04/23 at 1044, Until Tue02/04/23 at 1254, Routine, Anesthesia Intraprocedure Given 02/04/2023 10:44 AM EST 2 g dexamethasone (Decadron) injection Intravenous, As needed, Starting on Tue02/04/23 at 1054, Until Tue02/04/23 at 1254, Routine, Anesthesia Intraprocedure Given 02/04/2023 10:54 AM EST 4 mg fentaNYL (Sublimaze) injection Intravenous, Once PRN Procedure, Starting on Tue02/04/23 at 0950, Until Tue02/04/23 at 0950, Routine, Anesthesia Intraprocedure Given 02/04/2023 9:50 AM EST 100 mcg ketorolac (Toradol) injection Intravenous, As needed, Starting on Tue02/04/23 at 1105, Until Tue02/04/23 at 1254, Routine, Anesthesia Intraprocedure Given 02/04/2023 11:05 AM EST 15 mg lactated Ringer's infusion 100 mL/hr, Intravenous, Continuous, Starting on Tue02/04/23 at 0800, Until Tue02/04/23 at 1624, Routine New Bag 02/04/2023 10:18 AM EST lidocaine PF (Xylocaine) 2 % injection Intravenous, As needed, Starting on Tue02/04/23 at 1027, Until Tue02/04/23 at 1254, Routine, Anesthesia Intraprocedure Given 02/04/2023 10:27 AM EST 60 mg midazolam (Versed) injection Intravenous, Once PRN Procedure, Starting on Tue02/04/23 at 0950, Until Tue02/04/23 at 0950, Routine, Anesthesia Intraprocedure Given 02/04/2023 9:50 AM EST 2 mg ondansetron (Zofran) injection Intravenous, As needed, Starting on Tue02/04/23 at 1230, Until Tue02/04/23 at 1254, Routine, Anesthesia Intraprocedure Given 02/04/2023 12:30 PM EST 4 mg phenylephrine 25 mg in NS 250 mL (0.1 mg/mL) infusion (compounding pharmacy premix) Intravenous, Continuous PRN, Starting on Tue02/04/23 at 1052, Until Tue02/04/23 at 1254, Routine, Anesthesia Intraprocedure Rate/Dose Change 02/04/2023 11:53 AM EST 0.3 mcg/kg/min 15.102 mL/hr Rate/Dose Change 02/04/2023 11:40 AM EST 0.2 mcg/kg/min 10 .068 mL/hr Rate/Dose Change 02/04/2023 11:22 AM EST 0.3 mcg/kg/min 15 .102 mL/hr phenylephrine in NS (Johnathan-Synephrine) 100 mcg/mL prefilled syringe Intravenous, As needed, Starting on Tue02/04/23 at 1044, Until Tue02/04/23 at 1254, Routine, Anesthesia Intraprocedure Given 02/04/2023 10:44 AM EST 100 mcg propofol (Diprivan) injection Intravenous, As needed, Starting on Tue02/04/23 at 1027, Until Tue02/04/23 at 1254, Routine, Anesthesia Intraprocedure Given 02/04/2023 10:27 AM EST 150 mg rocuronium (ZeMuron) injection Intravenous, As needed, Starting on Tue02/04/23 at 1027, Until Tue02/04/23 at 1254, Routine, Anesthesia Intraprocedure Given 02/04/2023 10:27 AM EST 50 mg ropivacaine (Naropin) injection Injection, Once PRN Procedure, Starting on Tue02/04/23 at 0950, Until Tue02/04/23 at 0950, Routine, Anesthesia Intraprocedure Given 02/04/2023 9:50 AM EST 30 mL documented in this encounter Additional Health Concerns Assessment Noted Time A fall risk assessment has been complete d for the patient 12/14/2022 1:02 PM EDT A Body Mass Index follow-up plan has been documented for the patient 12/15/2022 3:27 PM EDT documented as of this encounter Care Teams Art Gallery Internship Relationship Specialty Start Date End Date Amber Bedolla APRN [facility] [address] [id number] PCP - General 07/18/20 Tarik Cadet MD [address] [address] Surgeon Neurosurgery 05/25/21 documented as of this encounter
--- OUTSIDE RECORDS SUMMARY | 2024-02-08 13:13 | XMS_ITS | Encounter Summary ---
Author Organization Healthcare Address [address] [place] [address] Care Team Providers Care Application Support Consultant Name Role Phone Amber Bedolla Antonio PALAFOX Primary Care Provider [phone] Tarik Cadet MD Unavailable Encounter Details Date Type Department Care Team (Late st Contact Info) Description 04/02/2023 Telephone [facility] [address] [place] [address] Kary Valdovinos Social History Tobacco Use Types Packs/Day Years [...] drink first t mony in the morning (EYE-SUGAR CANE PLANTING EQUIPMENT OPERATOR) to steady your nerves or to [...] encounter Miscellaneous Notes * Telephone Encounter - Kary Valdovinos - 04/02/2023 3:22 PM EST Spoke with patient and rescheduled. documented in this encounter Plan of Treatment [...] documented as of this encounter Care Teams Application Support Consultant Relationship Specialty Start Date End Date Amber Bedolla APRN [facility] [place] [address] PCP - General 07/18/20 Tarik Cadet MD [address] [facility] [address] [place] [address] Surgeon Neurosurgery 05/25/21 documented as of this encounter
--- OUTSIDE RECORDS SUMMARY | 2024-02-08 13:13 | XMS_ITS | Encounter Summary ---
Author Organization [facility] Address [address] [place] [address] Care Team Providers Care Massage Operator Name Role Phone ChiomaAmber barrios Antonio PALAFOX Primary Care Provider [phone] Tarik Cadet MD Unavailable [phone] Encounter Details Date Type Department Care Team (Latest Contact Info) Description 02/22/2022 Travel Social History Tobacco Use Types Packs/Day [...] drink first t mony in the morning (EYE-ROPE TWISTING MACHINE OPERATOR) to steady your nerves or to [...] documented as of this encounter Care Teams Massage Operator Relationship Specialty Start Date End Date Amber Bedolla APRN [address] [place] [address] PCP - General 07/18/20 Tarik Cadet MD [address] [address] Surgeon Neurosurgery 05/25/21 documented as of this encounter
--- OUTSIDE RECORDS SUMMARY | 2024-02-08 13:13 | XMS_ITS | Encounter Summary ---
Author Organization Healthcare Address [address] [place] [address] Care Team Providers Care Building Specialist Name Role Phone ChiomaAmber Antonio PALAFOX Primary Care Provider [phone] Tarik Cadet MD Unavailable [phone] Encounter Details Date Type Department Care Team (Latest Contact Info) Description 05/10/2022 12:56 PM EST - 05/10/2022 11:59 PM EST Hospital Encounter [facility] [address] [place] [address] S/P lumbar spinal fusion Discharge [...] drink first t mony in the morning (EYE-LEGAL FINANCIAL SPECIALIST) to steady your nerves or to [...] by mouth 1 (one) time each day. omeprazole (PriLOSEC) [address] capsule 1 (one) time each day in the morning. 04/07/2020 ibuprofen 600 MG tablet 01/05/2022 3 documented as of this encounter Plan of Treatment Not on file documented as of this encounter Procedures Procedure Name Priority Date/Time Associated Diagnosis Comments XR LUMBAR SPINE 2 OR 3 VIEWS Routine 05/10/2022 1:03 PM EST S/P lumbar spinal fusion documented [...] OR 3 VIEWS ordered by KOKO ARAMBULA, [id number] CLINICAL INDICATION: low back pain TECHNIQUE: XR LUMBAR SPINE 2 OR 3 VIEWS COMPARISON: 22 February 2022 FINDINGS: L4-5 posterior fusion. No hardware failure or loosening. Degenerative changes are similar to prior most pronounced at L5-S1. Procedure Note Cyril Stacy MD - 05/10/2022 Exam/Procedure: XR LUMBAR SPINE 2 OR 3 VIEWS ordered by KOKO ARAMBULA,[id number] CLINICAL INDICATION: low back pain TECHNIQUE: XR [...] documented as of this encounter Care Teams Building Specialist Relationship Specialty Start Date End Date Amber Bedolla APRN [facility] [address] [address] PCP - General 07/18/20 Tarik Cadet MD [id number] [place] [address] Surgeon Neurosurgery 05/25/21 documented as of this encounter
--- OUTSIDE RECORDS SUMMARY | 2024-02-08 13:13 | XMS_ITS | Encounter Summary ---
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 Time frames allow for optimal healing, and should be used as criteria for advancement along with a patient's functional ability. Phase I (0-4 weeks) Goals: Protect the repair and educate patient regarding rotator cuff repair precautions Decrease pain Increase PROM for forward flexion and scaption (see precautions for IR/ER) Independent with home exercise program Initiate scapular awareness exercises Precautions: No AROM or AAROM during Phase I. Must wear sling at all times except when exercising for 6 weeks. No passive IR stretching for 4 weeks. External rotation stretching limited to 45 degrees only for 4 weeks. No strengthening for 12 weeks. Exercises Phase I Weeks 0-3: PROM for flexion, scaption, and external rotation (to 45 degrees) Grade II, III glenohumeral mobilizations anterior, inferior, and posterior directions. Manual scapular resistance exercises Codman's all directions Active elbow flexion, and extension Gripping exercises for the hand Cervical AROM all directions Educate family on performing PROM for home if appropriate Modalities PRN Phase II (4-8 weeks) Goals: Decrease pain Full PROM all directions. Initiate AAROM (4-6 wks) and AROM (6 wks+) with patient aware of upper trapezius substitution pattern Precautions: No AROM until 6 weeks. No strengthening until 12 weeks. Avoid abnormal scapular substitution patterns with initiation of active motion Exercise Phase II Weeks 4-6: Continue PROM Initiate AAROM for flexion, abduction, ER, and IR (pulleys, wand, etc), cueing for good scapular positioning/scapulohumeral rhythm Can perform lower extremity strengthening and cardiovascular exercises that are non-stressful to the shoulder Trunk stabilization exercises Weeks 6-12: Perform AROM for flexion, and scaption with emphasis on scapular awareness to minimize the upper trap influence Initiate active scapular retraction and prone Oliva exercises Initiate bicep and triceps strengthening with bands only Begin using extremity for light ADLs Phase III (12-24 weeks) Goals: Achieve full AROM all directions with normal scapulohumeral rhythm. Minimal to no shoulder pain with light to moderate ADL's. Initiate shoulder strengthening. Precautions: all strengthening should be performed below 90 degrees until normal scapular rhythm and sufficient rotator cuff strength is achieved. Exercise bands only (no free weights) for first 4 weeks of strengthening. Exercise Phase III Weeks 12-24: Continue PROM and joint mobilization PRN Initiate strengthening of rotator cuff, deltoid, and scapulothoracic musculature with exercise bands only. Can progress to free weights 4 weeks later if good control is present. General progression recommended: Prone scapular program Integrate functional patterns Increase speed of movements Integrate kinesthetic awareness drills into strengthening program Progress closed chain dynamic stability activities Initiate proprioceptive training Initiate closed chain exercises Initiate active PNF patterns concentrating on technique, with gradual progression to resistive PNF patterns Trunk stabilization/strengthening Phase IV (6 months) *Note: At six months may begin return to golf program, lifting, etc as released by surgeon if sufficient strength exists. Goals: Return to normal ADLs without restriction Exercises: Stretching PRN Continue rotator cuff, scapulothoracic, and trunk strengthening program Plyometric medicine ball program if appropriate Initiate progressive replication of demanding ADL/ work activities. Encounter Details Date Type Department Care Team (Late st Contact Info) Description 03/01/2023 1:40 PM EST Office Visit [facility] Orthopaedic Surgery & Sports Medicine [address], [address] [place] [address] Shadi Mims MD [address] [facility] [address] [place] [address] S/P rotator cuff repair (Primary Dx); Traumatic complete tear of right rotator cuff, sequela Social History Tobacco Use Types Packs/Day [...] drink first t mony in the morning (EYE-RADIAL ROUTER OPERATOR) to steady your nerves or to [...] encounter Miscellaneous Notes * Progress Notes - David Wilson MD - 03/01/2023 1:40 PM EST Orthopedic Sports Surgery Office Note Date [...] Conservative rotator cuff repair protocol - We gave the patient a script to start physical therapy today. - Pain control with Tylenol and ibuprofen if needed. - We are going to have the patient wean out of the sling over the 1-2 weeks. - No resisted elbow flexion until 2 months postoperatively - Ok to do shoulder range of motion. No push or pulling with the arm (no resistance). - No heavy lifting with the arm until 6 months. - Follow-up in 1 month for 2 month postoperative visit. David Wilson MD Orthopedic Sports Medicine Fellow [facility] 03/01/2023 1:20 PM Cosigned by Shadi Mims MD at 03/01/2023 6:32 PM EST Associated attestation - Shadi Mims MD - 03/01/2023 6:32 PM EST I saw and evaluated the patient with the resident/fellow. I discussed the case with the resident/fellow and agree with the findings and plan as documented. 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
--- OUTSIDE RECORDS SUMMARY | 2024-02-08 13:13 | XMS_ITS | Encounter Summary ---
Author Organization [facility] Address [address] [place] [address] Care Team Providers Care Lining Feller Name Role Phone ChiomaAmber barrios Antonio PALAFOX Primary Care Provider [phone] Tarik Cadet MD Unavailable [phone] Encounter Details Date Type Department Care Team (Latest Contact Info) Description 04/05/2023 Travel Social History Tobacco Use Types Packs/Day [...] drink first t mony in the morning (EYE-HOTEL RESERVATIONIST) to steady your nerves or to get [...] documented as of this encounter Care Teams Lining Feller Relationship Specialty Start Date End Date Amber Bedolla APRN [address] [id number] PCP - General 07/18/20 Tarik Cadet MD [address] [facility] [address] [place] [address] Surgeon Neurosurgery 05/25/21 documented as of this encounter
--- OUTSIDE RECORDS SUMMARY | 2024-02-08 13:13 | XMS_ITS | Encounter Summary ---
Author Organization [facility] Address [address] [id number] Care Team Providers Care Inflated Pad Buffer Name Role Phone Amber Bedolla VIVIENNE Primary Care Provider [phone] Tarik Cadet MD Unavailable [phone] Encounter Details Date Type Department Care Team (Late st Contact Info) Description 05/10/2022 1:15 PM EST Office Visit [place] [facility] [address] [place] [address] Tarik Cadet MD [address] [place] [address] S/P lumbar spinal fusion (Primary [...] drink first t mony in the morning (EYE-MANAGER PHARMACY) to steady your nerves or to get [...] Sign Reading Time Taken Comments Blood Pressure 137/83 05/10/2022 1:24 PM EST Pulse 83 05/10/2022 1:24 PM EST Temperature - - Respiratory Rate - - Oxygen Saturation 97% 05/10/2022 1:24 PM EST Inhaled Oxygen Concentration - - Weight 80.7 kg (178 lb) 05/10/2022 1:24 PM EST Height 160 cm (5' 3 ) 05/10/2022 1:24 PM EST Body Mass Index 31.53 05/10/2022 1:24 PM EST documented in this encounter Miscellaneous Notes * Progress Notes - Kenney Hernandez MD - 05/10/2022 1:15 PM EST HPI: Patient is a 67-year-old woman status post L4-5 MIS TLIF on 12/30/2021. She is doing very wellat today's follow up visit. She did physical therapy for 3 weeks. This seemed to help her a lot. Her back and legs are doing very well. She has a history of rheumatoid arthritis in his having some issues with her knees and hips but this is unchanged. She might need more injections. Otherwise she is returning to her normal activities. Review of systems. 14 Point ROS performed. Noncontributory except as indicated above-form completedby patient, reviewed and placed in chart. Past medical history, past surgical history, family history, social history, Current medications and Allergies were reviewed and are noted below. ? Physical Exam: General: No acute distress HEENT: Normocephalic, atraumatic CV: Regular rate and rhythm Lungs: Symmetric chest rise, nonlabored breathing MSK: Normal passive range of motion Psych: Normal affect Gait: Normal gait Skin: color consistent with ethnicity, no obvious pallor, atraumatic Neuro: Alert and oriented to person place and time. CN 2-12 grossly intact Muscle Strength: hip flexion knee extension knee flexion dorsiflexion plantar flexion Right Leg 5/5 5/5 5/5 5/5 5/5 Left Leg 5/5 5/5 5/5 5/5 5/5 ? Imaging: I reviewed the x-rays of the lumbar spine with the attending which showed intact L4-5 TLIFhardware. ? Assessment: Patient is a 67-year-old woman status post L4-5 MIS TLIF on 12/30/2021. She is doing very well at today's follow up visit. Her hardware remains intact. She is very pleased with the outcome of her surgery. We will see her back in December with flexion-extension films. ? Thank you for allowing us to be a part of your patient's care. Please do not hesitate to contact usat the [facility] if there are any questions or concerns. Salo Hernandez MD PGY-3 Neurosurgery Cosigned by Tarik Cadet MD at 05/11/2022 12:39 PM EST Associated attestation - Tarik Cadet MD - 05/11/2022 12:39 PM EST I saw and evaluated the patient with the resident/SHEILA. I personally reviewed the available spinal imaging and historical documentation. I discussed the case with the residents/SHEILA and agree with the findings and plan as documented. I personally spent a total of 30 minutes on this encounter. This time includes face to face with patient, counseling and discussion and/or coordination of care. I spent >50% in [id number] communication with the patient over the diagnosis, treatment options and plan. documented in this encounter Plan of Treatment [...] documented as of this encounter Care Teams Inflated Pad Buffer Relationship Specialty Start Date End Date Amber Bedolla APRN [facility] [place] [address] PCP - General 07/18/20 Tarik Cadet MD [address] [address] Surgeon Neurosurgery 05/25/21 documented as of this encounter
--- OUTSIDE RECORDS SUMMARY | 2024-02-08 13:13 | XMS_ITS | Encounter Summary ---
Author Organization [facility] Address [address] [place] [address] Care Team Providers Care Brisket Puller Name Role Phone ChiomaAmber barrios Antonio PALAFOX Primary Care Provider [phone] Tarik Cadet MD Unavailable [phone] Encounter Details Date Type Department Care Team (Latest Contact Info) Description 01/28/2023 Travel Social History Tobacco Use Types Packs/Day [...] drink first t mony in the morning (EYE-MONUMENTAL STONEMASON) to steady your nerves or to get [...] documented as of this encounter Care Teams Brisket Puller Relationship Specialty Start Date End Date Amber Bedolla APRN [address] [id number] PCP - General 07/18/20 Tarik Cadet MD [id number] [place] [address] Surgeon Neurosurgery 05/25/21 documented as of this encounter
--- OUTSIDE RECORDS SUMMARY | 2024-02-08 13:13 | XMS_ITS | Encounter Summary ---
Author Organization [facility] Address [address] [place] [address] Care Team Providers Care Electromedical Service Engineer Name Role Phone ChiomaAmber barrios Antonio PALAFOX Primary Care Provider [phone] Tarik Cadet MD Unavailable [phone] Encounter Details Date Type Department Care Team (Latest Contact Info) Description 02/04/2023 Travel Social History Tobacco Use Types Packs/Day [...] first t mony in the morning (EYE-DIRECTOR STATE PHARMACY) to steady your nerves or to [...] documented as of this encounter Care Teams Electromedical Service Engineer Relationship Specialty Start Date End Date Amber Bedolla APRN [address] [phone] PCP - General 07/18/20 Tarik Cadet MD [id number] [place] [address] Surgeon Neurosurgery 05/25/21 documented as of this encounter
--- NOTE | 2024-02-08 13:14 | EXP.PAIN.SOA ---
[facility] Disclaimer: The information contained in this section may have been updated after the patient was seen, as this information can be updated by other users. Medical History Rheumatoid arthritis Motion sickness Kidney stones GERD (gastroesophageal reflux disease) Dental disease Arthritis Surgical History H/O repair of rotator cuff History of lumbar spinal fusion H/O total hip arthroplasty H/O total knee replacement Family History Other Arthritis Diabetes Hyperlipidemia Hypertension Social History Smoking Status: Never smoker alcohol intake: current alcohol intake frequency: holidays/special occasions only current occupational status: retired Travel in the last 8 weeks: None caffeine: Yes PM Subjective & Objective Subjective Subjective:: Patient is a pleasant 68-year-old female who presents today for follow-up. Today she rates her pain a 1 out of 10. Patient denies any new trauma or injury. She does state that she has still been doing the water aerobics however around the time of it did get a little bit more hectic and that she was also under the weather with a cold so she was unable to get there for it. Patient states that she has been interchanging the treadmill and elliptical when she has not been able to go to the pool. She states overall she is continued to do well. Patient did previously have left bursa and left SI injection on 11/01/2023 that did provide 85 to 90% improvement. Her Harrison has been reviewed and is appropriate. Injection history: 11/01/2023: Left bursa and left SI injection?85 to 90% improvement 08/30/2023 left transforaminal epidural L3-L4 and L4-L5?70% 07/26/2023 LESI L5-S1- 85 to 90% Review of Systems: General: No recent weight changes, no fever, no sleep disturbances Respiratory: No cough, no shortness of air, no recurring pulmonary infections Cardiovascular/peripheral vascular: No chest pain, no palpitations, no edema, no shortness of breath Gastrointestinal: No new onset incontinence, normal bowel movements reported Genitourinary: No new onset incontinence Musculoskeletal: Low back pain Psychiatric: [Normal mood/affect] Neurological: [Denies weakness in extremities], [denies balance issues] Pain at rest (0-10 scale): 1 Objective Objective:: Physical Exam: General: Alert and oriented x3, no acute distress, pleasant and cooperative Lungs: Respirations even and unlabored, symmetrical chest expansion Eyes: PERRL Musculoskeletal: Flexion and extension of lumbar [spine] within normal limits Neurological: Speech clear, no gross sensory deficit Has patient had previous pain injection?: No Conservative treatment options previously tried: Home exercise plan Length of treatment: Longer than 12 weeks Meds Home Medications and Allergies Home Medications ?Medication ?Instructions ?Recorded ?Confirmed ?Type conjugated estrogens 0.45 mg 0.45 mg PO DAILY Supplement 07/24/17 11/30/23 History tablet (Premarin) ibuprofen 800 mg-famotidine 26.6 1 ea PO DAILY Pain 07/24/17 11/30/23 History mg tablet (Duexis) lamotrigine 150 mg tablet 150 mg PO DAILY rash 07/24/17 11/30/23 History (Lamictal) valacyclovir 1 gram tablet 1,000 mg PO DAILY PRN fever 07/24/17 11/30/23 History (Valtrex) blisters omeprazole 20 mg capsule,delayed 20 mg PO DAILY stomach 08/19/17 11/30/23 History release New Prescriptions to Start Prescriptions: Allergies Allergy/AdvReac Type Severity Reaction Status Date / Time No Known Allergies Allergy Verified 11/01/23 14:07 Assessment and Plan *Assessment and plan (1) Greater trochanteric bursitis of left hip: Status: Acute Category: Medical Code(s): M70.62 - Trochanteric bursitis, left hip (2) History of lumbar fusion: Status: Acute Category: Surgical Code(s): Z98.1 - Arthrodesis status (3) Lumbar facet arthropathy: Status: Acute Category: Medical Code(s): M47.816 - Spondylosis without myelopathy or radiculopathy, lumbar region (4) Lumbar nerve root impingement: Status: Acute Category: Medical Code(s): M54.16 - Radiculopathy, lumbar region (5) Sacroiliitis: Status: Acute Category: Medical Code(s): M46.1 - Sacroiliitis, not elsewhere classified (6) Lumbar radiculopathy: Status: Acute Category: Medical Code(s): M54.16 - Radiculopathy, lumbar region (7) Degenerative disc disease, lumbar: Status: Acute Category: Medical Code(s): M51.36 - Other intervertebral disc degeneration, lumbar region Plan Patient has continued to do well following her last injection and does not require any additional interventions at this time. Patient will return to clinic in 6 weeks for reevaluation of symptoms and plan of care. Patient has been instructed to contact the clinic with any concerns before the next appointment. Dr. Peter has reviewed this note and agrees with this plan of care. This note was dictated using voice recognition software and make contain errors or omissions. All injections are used with Lidocaine or Bupivacaine and Depo Medrol.
--- OUTSIDE RECORDS SUMMARY | 2024-02-08 13:14 | XMS_ITS | Encounter Summary ---
Author Organization [facility] Address [address] [place], [place] [address] Care Team Providers Care Counselor Dormitory Name Role Phone Amber Bedolla APRN Primary Care Provider [phone] Tarik Cadet MD Unavailable [phone] Encounter Details Date Type Department Care Team (Latest Contact Info) Description 12/22/2021 Travel Social History Tobacco Use Types Packs/Day Years Used Date Smoking Tobacco: Never Smokeless Tobacco: Never Alcohol Use Standard Drinks/Week Comments No 0 (1 standard drink = 0.6 oz pur e alcohol) Comments No Sex and Gender Information Value [...] suspected to have Coronavirus/COVID-19? No / Unsure 12/22/2021 1:23 PM EDT documented as of this encounter Plan of Treatment Not on file documented as of this encounter Visit Diagnoses Not on filedocumented in this encounter Additional Health Concerns Assessment Noted Time A fall risk assessment has been complete d for the patient 11/19/2021 11:16 AM EDT documented as of this encounter Care Teams Counselor Dormitory Relationship Specialty Start Date End Date Amber Bedolla APRN [address] [place] [address] PCP - General 07/18/20 Tarik Cadet MD [id number] [place] [address] Surgeon Neurosurgery 05/25/21 documented as of this encounter
--- OUTSIDE RECORDS SUMMARY | 2024-02-08 13:14 | XMS_ITS | Encounter Summary ---
Author Organization [facility] Address [address] [id number] Care Team Providers Care Belt Molder Name Role Phone Amber Bedolla VIVIENNE Primary Care Provider [phone] Tarik Cadet MD Unavailable [phone] Reason for Visit * Auth/Cert (Routine) Specialty Diagnoses / Procedures Referred By Contac t Referred To Contact Diagnoses Anterolisthesis of lumbar spine Anterolisthesis of lumbar spine [M43.16] Procedures W[place] ARTHRODESIS POSTERIOR INTERBODY LUMBAR WY INSJ BIOMCHN DEV INTERVERTEBRAL DSC SPC W/ARTHRD WY POSTERIOR NON-SEGMENTAL INSTRUMENTATION WY ALLOGRAFT FOR SPINE SURGERY ONLY MORSELIZED WY AUTOGRAFT SPINE SURGERY LOCAL FROM SAME INCISION [place] STEREOTACTIC COMP ASSIST PROC,SPINAL L4-5 MIS TLIF ADD ON SPINE NAVIGATION Tarik Cadet MD [address] [facility] [address] [place] [address] Phone: tel: fax: [facility] OPERATING ROOM [address] [place] [address] Phone: tel: Referral ID Status Reason Start Date Expiration Date Visits Re quested Visits Authorized [id number] 1 1 Encounter Details Date Type Department Care Team (Late st Contact Info) Description 12/30/2021 5:50 AM EDT - 01/01/2022 3:58 PM EDT Hospital Encounter [facility] Inpatient [address] [place] [address] Tarik Cadet MD [address] [place] [address] Neurogenic claudication due to lumbar spinal stenosis; Anterolisthesis of lumbar spine Discharge Disposition: Home or Self Care Social [...] drink first t mony in 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 No / Unsure 01/12/2022 10:11 PM EST documented as of this encounter Last Filed Vital Signs Vital Sign Reading Time Taken Comments Blood Pressure 101/59 01/01/2022 12:10 PM EDT Pulse 96 01/01/2022 12:10 PM EDT Temperature 36.6 ??C (97.9 ??F) 01/01/2022 12:10 PM E DT Respiratory Rate 20 01/01/2022 4:02 AM EDT Oxygen Saturation 94% 01/01/2022 12:10 PM EDT Inhaled Oxygen Concentration - - Weight 79.4 kg (175 lb) 12/30/2021 6:16 PM EDT Height 160 cm (5' 3 ) 12/30/2021 6:16 PM EDT Body Mass Index 31 12/30/2021 6:16 PM EDT documented in this encounter Medications at Time of Discharge Cetirizine HCl (ZyrTEC ALLERGY) 10 MG capsule if needed. diclofenac (Voltaren) 1 % topical gel APPLY 2 GRAMS TOPICALLY 4 TIMES DAILY 02/26/2021 lamoTRIgine (LaMICtal) 150 MG tablet every 12 (twelve) hours. 05/09/2013 omeprazole (PriLOSEC) [address] capsule 1 (one) time each day in the morning. 04/07/2020 cyclobenzaprine (Flexeril) 10 MG tablet Take 1 tablet (10 mg total) by mouth 3 (three) times a day for 10 days. 30 tablet 01/01/2022 2 oxyCODONE (Roxicodone) 5 MG immediate release tablet Take 1 tablet (5 mg total) by mouth every 6 (six) hours if needed for moderate pain for up to 7 days. 30 tablet 01/01/2022 2 polyethylene glycol (Miralax) 17 g packet Take 17 g by mouth 2 (two) times a day for 3 days. 6 packet 01/01/2022 2 senna-docusate (Yudelka-Colace) 8.6-50 MG tablet Take 2 tablets by mouth 2 (two) times a day for 10 days. 40 tablet 01/01/2022 2 documented as of this encounter Miscellaneous Notes * Addendum Note - Mildred Terry - 01/01/2022 3:58 PM EDTEncounter addended by: Mildred Terry on: 01/18/2022 10:38 AM Actions taken: Charge Capture section accepted * Progress Notes - Lubna Phillips RN - 01/01/2022 10:46 AM EDT POC reviewed with multidisciplinary team, per MD, pt is medically ready to discharge home today. Ptaware and agreeable to discharge plan, no further questions. Discharge today. * Discharge Summary - Amber Acevedo APRN - 01/01/2022 6:41 AM EDT Hospitalization Admit Date/Time: 12/30/2021 5:50 AM Admitting Attending: Tarik Cadet Discharge Date: 01/01/22 Discharge Attending Physician: Tarik Cadet Md PCP name and Address: Amber Bedolla [address] [place] [address] / [place] [address] Referring provider name and address: No referring provider defined for this encounter. Chief Concern, Brief History of Present Illness, and Hospital Course Nory Ceja is a 66 y.o. female who presented to the [facility] on 12/30/2021 for elective surgery forgrade 1 spondylolisthesis at L4-5 seen on imaging. Patient has been seen in the neurosurgery clinic for low back pain which has failed conservative measures. Accordingly, the patient was deemed an appropriate candidate for surgical intervention. The risks, benefits, and alternatives were explained and the patient elected to proceed with surgery. Patient proceeded to the operating room on 12/30/2021 and underwent MIS L4-5 TLIF. The procedure was tolerated well without any intraoperative or postoperative complications. The patient was subsequently transferred to a neurosurgical floor unit for monitoring and continuation of care. PT/OT evaluated patient and recommended home with assistance. The patient was seen by the neurosurgery team and it was felt the patient had reached maximal benefit from hospitalization and deemed the patient ready for discharge. On the day of discharge the patient's pain is well controlled with PO pain medicine pain, walking, voiding, tolerating oral intake. The patient was discharged in stable condition and will follow up in I clinic on 01/13 Surgeries and Procedures L4-5 MIS TLIF (N/A) Medication List .. cyclobenzaprine 10 MG tablet Commonly known as: Flexeril Take 1 tablet (10 mg total) by mouth 3 (three) times a day for 10 days. diclofenac 1 % topical gel Commonly known as: Voltaren APPLY 2 GRAMS TOPICALLY 4 TIMES DAILY lamoTRIgine 150 MG tablet Commonly known as: LaMICtal every 12 (twelve) hours. omeprazole [address] capsule Commonly known as: PriLOSEC 1 (one) time each day at the same time. oxyCODONE 5 MG immediate release tablet Commonly known as: Roxicodone Take 1 tablet (5 mg total) by mouth every 6 (six) hours if needed for moderate pain for up to 7 days. polyethylene glycol 17 g packet Commonly known as: Miralax Take 17 g by mouth 2 (two) times a day for 3 days. senna-docusate 8.6-50 MG tablet Commonly known as: Yudelka-Colace Take 2 tablets by mouth 2 (two) times a day for 10 days. ZyrTEC ALLERGY 10 MG capsule Generic drug: Cetirizine HCl if needed. Where to Get Your Medications These medications were sent to [facility] - [place], [place] - [email or web address] [facility] [id number] cyclobenzaprine 10 MG tablet oxyCODONE 5 MG immediate release tablet polyethylene glycol 17 g packet senna-docusate 8.6-50 MG tablet Discharge Diagnosis Medical Problems Active and Resolved Hospital Problems Hospital Neurogenic claudication due to lumbar spinal stenosis * (Principal) Anterolisthesis of lumbar spine Overview Signed 09/28/2021 3:04 PM by Kenney Hernandez MD Added automatically from request for surgery [id number] Post Discharge Instructions Diet: Resume home diet Lifting: No lifting more than 5 lbs until cleared by neurosurgery Activity: Move around as you are able, do not drive for 2 weeks or while taking narcotic pain medications. Wound or Incision Care: Please remove your dressing 48 hours after surgery The incision is closed with glue on the outside, there are no sutures or kirby. Do not peel the glue, it will come off in two to three weeks on its own. Keep the incision nice and clean. Please do not apply any creams, lotions, gels, ointments or salves on your incision. Reason to call: feels warm or hot to the touch, is red or dark pink, is tight or swollen and looks shiny, becomes more tender or sore to the touch, wound smells bad and wound is draining pus, bleeding or coming open. Bathing: OK to shower 48 hours after surgery, do NOT take a tub bath, do not soak wound, do not scrub wound,allow water to wash over wound. Wash your wound with mild soap and water once a day; pat dry; do not rub. Instructed patient to call if: Temperature is above 101.5. Pain is not relieved by medications. You are throwing up or have diarrhea for more than 24 hours. Medication Instructions: Take Medication exactly as instructed. Do not take any medications that have not been ordered for This means do not take other people's medication, illegal drugs or substances, or even more medication than has been ordered. Please do not take any NSAIDs for 6 weeks. 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) [facility] 02/22/2022 2:45 PM Tarik Cadet MD [facility] 07/22/2022 9:20 AM Shadi Mims MD [facility] Test Results Pending At Discharge none Pertinent Physical Exam At Time of Discharge Physical Exam GEN: well developed, no acute distress HEENT: normocephalic, atraumatic, no scleral icterus PULM: no increased work of breathing, normal effort CV: normal rate and regular rhythm MSK: no joint swelling, normal range of motion SKIN: warm and dry PSYCHE: normal mood and affect Neuro Exam GCS (EMV): 465 PERRL, EOMI CN 2-12 grossly intact No drift Strength: HF KE KF DF EHL PF RLE: 5/5 5/5 5/5 5/5 5/5 5/5 LLE: 5/5 5/5 5/5 5/5 5/5 5/5 Sensation was intact to light touch throughout Discharge Disposition/Condition Disposition: Home Condition: Stable (s/sx potential problems absent or manageable) I spent >30 minutes of patient care and instruction time in preparation for this discharge. Cosigned by Tarik Cadet MD at 01/01/2022 8:38 AM EDT * Care Plan - Juany Rosas - 01/01/2022 12:19 AM EDT Problem: Adult Inpatient Plan of Care Goal: Plan of Care Review Outcome: Ongoing, Progressing Flowsheets (Taken 01/01/2022 0019) Progress: improving Plan of Care Reviewed With: patient Goal: Patient-Specific Goal (Individualized) Outcome: Ongoing, Progressing Flowsheets (Taken 12/31/20211999) Patient-Specific Goals (Include Timeframe): pt will remain free of fall/injury during shift Individualized Care Needs: safety Anxieties, Fears or Concerns: denies Goal: Absence of Hospital-Acquired Illness or Injury Outcome: Ongoing, Progressing Goal: Optimal Comfort and Wellbeing Outcome: Ongoing, Progressing Goal: Readiness for Transition of Care Outcome: Ongoing, Progressing Problem: Pain Acute Goal: Acceptable Pain Control and Functional Ability Outcome: Ongoing, Progressing Problem: Bleeding (Spinal Surgery) Goal: Absence of Bleeding Outcome: Ongoing, Progressing Problem: Bowel Elimination Impaired (Spinal Surgery) Goal: Effective Bowel Elimination Outcome: Ongoing, Progressing Problem: Functional Ability Impaired (Spinal Surgery) Goal: Optimal Functional Ability Outcome: Ongoing, Progressing Problem: Infection (Spinal Surgery) Goal: Absence of Infection Signs and Symptoms Outcome: Ongoing, Progressing Problem: Neurologic Impairment (Spinal Surgery) Goal: Optimal Neurologic Function Outcome: Ongoing, Progressing Problem: Ongoing Anesthesia Effects (Spinal Surgery) Goal: Anesthesia/Sedation Recovery Outcome: Ongoing, Progressing Problem: Pain (Spinal Surgery) Goal: Acceptable Pain Control Outcome: Ongoing, Progressing Problem: Postoperative Nausea and Vomiting (Spinal Surgery) Goal: Nausea and Vomiting Relief Outcome: Ongoing, Progressing Problem: Postoperative Urinary Retention (Spinal Surgery) Goal: Effective Urinary Elimination Outcome: Ongoing, Progressing Problem: Fall Injury Risk Goal: Absence of Fall and Fall-Related Injury Outcome: Ongoing, Progressing Problem: Infection Goal: Absence of Infection Signs and Symptoms Outcome: Ongoing, Progressing Problem: Mobility Impairment Goal: Optimal Mobility Outcome: Ongoing, Progressing Problem: Self-Care Deficit Goal: Improved Ability to Complete Activities of Daily Living Outcome: Ongoing, Progressing * Progress Notes - Clifford Flood DO - 12/31/2021 4:15 PM EDT Neurosurgery Progress Note Subjective Marianela Ceja is a 66 y.o. female with symptomatic lumbar spondylolisthesis at L4-5 resulting in associated axial low back pain now s/p L4-5 diskectomy/laminectomy. Patient had no acute events overnight. Remains afebrile, hemodynamically stable, and neurologicallystable. PT/OT recommends HWA. Patient seen on rounds and discussed with the neurosurgery team. Medications Current Facility-Administered Medications Medication Dose Route Frequency Provider Last Rate Last Admin acetaminophen (Tylenol) tablet 650 mg 650 mg Oral q8h Alvin Mendez MD 650 mg at 12/31/21 160 cyclobenzaprine (Flexeril) tablet 5 mg 5 mg Oral TID Alvin Mendez MD 5 mg at 12/31/212055 diclofenac (Voltaren) 1 % topical gel Transdermal Daily Alvin Mendez MD Given at 12/31/21925 enoxaparin (Lovenox) syringe 40 mg 40 mg Subcutaneous Daily Alvin Mendez MD 40 mg at 12/31/21925 hydrALAZINE (Apresoline) injection 20 mg 20 mg Intravenous q1h PRN Alvin Mendez MD 20 mg at 12/30/212022 lamoTRIgine (LaMICtal) tablet 300 mg 300 mg Oral Daily Alvin Mendez MD 300 mg at 12/31/21924 ondansetron (Zofran) injection 4 mg 4 mg Intravenous q6h PRN Alvin Mendez MD oxyCODONE (Roxicodone) immediate release tablet 5 mg 5 mg Oral q6h PRN Alfredo Robertson MD 5 mg at 12/31/211923 Or oxyCODONE (Roxicodone) immediate release tablet 10 mg 10 mg Oral q6h PRN Alfredo Robertson MD pantoprazole (Protonix) EC tablet 40 mg 40 mg Oral Daily before breakfast Alvin Mendez MD 40 mgat 12/31/21924 polyethylene glycol (Miralax) packet 17 g 17 g Oral BID Amber Acevedo APRN 17 g at 12/31/212054 Povidone-Iodine 5 % swab solution 1 Swab 1 Swab Nasal Daily Tarik Cadet MD senna-docusate (Yudelka-Colace) 8.6-50 MG per tablet 2 tablet 2 tablet Oral BID Amber DownskaminiradhaVIVIENNE 2 tablet at 12/31/212055 Last Recorded Vitals Visit Vitals BP 118/72 (BP Location: Left arm, Patient Position: Lying) Pulse 96 Temp 38.2 ??C (100.7 ??F) (Oral) Resp 15 Ht 1.6 m (5' 3 ) Wt 79.4 kg (175 lb) SpO2 95% BMI 31.00 kg/m?? OB Status Postmenopausal Smoking Status Never BSA 1.88 m?? Labs Labs in last 18 hours CBC WBC ?? Hb ?? Plt ?? Hct ?? BMP Na ?? Cl ?? BUN ?? Glu ?? K ?? Co2 ?? Cr ?? Outputs Intake/Output Summary (Last 24 hours) at 12/31/20212106 Last data filed at 12/31/2021 1600 Gross per 24 hour Intake 1695 ml Output 1250 ml Net 445 ml Output by Drain (mL) 12/29/21 07 - 12/29/21185812/29/21 1900 - 12/30/21 0659 12/30/21 0700 - 12/30/21185812/30/21 1900 - 12/31/21 0659 12/31/21 0700 - 12/31/219 12/31/21 1900 - 12/31/212106 Patient has no LDAs of requested type attached. Physical Exam GEN: well developed, no acute distress HEENT: normocephalic, atraumatic, no scleral icterus PULM: no increased work of breathing, normal effort CV: normal rate and regular rhythm MSK: no joint swelling, normal range of motion SKIN: warm and dry PSYCHE: normal mood and affect Neuro Exam GCS (EMV): 465 PERRL, EOMI CN 2-12 grossly intact No drift Strength: HF KE KF DF EHL PF RLE: 5/5 5/5 5/5 5/5 5/5 5/5 LLE: 5/5 5/5 5/5 5/5 5/5 5/5 Sensation was intact to light touch throughout Reflexes: Patellar (L4) Achilles (S1) Right: 1+ 1+ Left: 1+ 1+ Negative SLR test BL Negative Wes's test BL Negative ZULEMA test BL Imaging No new imaging for review Assessment and Plan Marianela Ceja is a 66 y.o. female with symptomatic lumbar spondylolisthesis at L4-5 resulting in associated axial low back pain now s/p L4-5 diskectomy/laminectomy. 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 I discussed the case with the resident/fellow and agree with the findings and plan as documented. * Progress Notes - Lubna Phillips RN - 12/31/2021 3:12 PM EDT POC reviewed with multidisciplinary team, per , pt is not medically ready to discharge d/t pod#1 MIS TLIF protocol. CM met with pt at bedside, pt reports she lives with her spouse in [address] 2 [address] [place] [address]. 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 PCP is Amber Bedolla, insurance is Medicare A and B with [employer] [place].Pt has a LW and POA. HWA recs. CM will continue to follow and assist with discharge planning needs. * Progress Notes - Vish Nance - 12/31/2021 10:38 AM EDT Physical Therapy Evaluation Patient Name: Marianela Ceja Today's Date: 12/31/2021 PT Discharge Recommendations: Home with assistance Equipment Recommended: Patient owns appropriate equipment History Nory Ceja is 66 y.o. female admitted 12/30/2021 for work-up of Anterolisthesis of lumbar spine. Problem List Active Hospital Problems Diagnosis Date Noted Neurogenic claudication due to lumbar spinal stenosis 12/30/2021 Anterolisthesis of lumbar spine 09/28/2021 Procedures 12/30/2021 Procedure(s): L4-5 MIS TLIF Past Medical History Patient has a past medical history of Arthritis, Dysphagia, FH: total knee replacement (2018), GERD(gastroesophageal reflux disease), Kidney stones, Motion sickness, Rheumatoid arthritis ([facility]), and Rotator cuff tear arthropathy of right shoulder. Past Surgical History Patient has a past surgical history that includes Joint replacement; Hip Arthroplasty; and Spinal fusion (12/30/2021). Precautions Medical Precautions: Spinal Spinal Precautions : No bending, lifting, twisting Subjective Pt pleasant and agreeable to work with PT Participants in Care Family/Caregiver Present: No Technology Professional: Not Applicable Presentation Oxygen Therapy: None (Room air) Lines and Tubes: Intravenous access Pre-Session: Supine, Head of bed elevated, Lines intact Pre-Session Comments: RN consent to treat Post-Session: Sitting in chair, RN notified, Lines intact, Chair alarm, Call light in reach Post-Session Comments: All needs met prior to exit Home Living/Set-up Lives With: Spouse (patient also lives next door to family) Home Type: House Home Adaptive Equipment: None (pt uses walking sticks in winter time to stay stable) Home Layout: Stairs to enter without rails, One level Number of Stairs: 1 Bathroom: Tub/Shower: Walk-in shower Bathroom: Toilet: Elevated toilet seat without arms, Grab bars Prior Level of Function Receives Help From: No assist required prior to admission Level of Mobility: Ambulatory- community Mobility Millard: Independent gait without device History of Falls: Yes (pt reports ground level mechanical fall reporting she injured her right shoulder) ADL Performance: Independent Patient/Family Goals Objective Pain Pt reports 4/10 low back pain with mobility Delirium Screening Fisher Agitation Sedation Scale (RASS): Alert and calm Confusion Assessment Method-ICU (CAM-ICU/PCAM-ICU) Feature 3: Altered Level of Consciousness: Negative Cognition Overall Cognitive Status: Within Functional Limits Arousal/Alertness: Appropriate responses to stimuli Mood/Behavior: Alert Orientation Level: Oriented X4 Single Step Commands: Consistently Multi-Step Commands: Consistently Method of Communication: Verbal Right Upper Extremity Examination RUE Assessment: Within Functional Limits Manual Muscle Testing - RUE: Within functional limits except (shoulder not tested 3/5 shown with mobility; 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 and wrist/gas dispenser 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) Sensation Light Touch: Right Upper Extremity: Intact Left Upper Extremity Examination LUE ROM Assessment LUE Assessment: Within Functional Limits Manual Muscle Testing - LUE Manual Muscle Testing - LUE: Within functional limits Sensation Light Touch: Left Upper Extremity: Intact Right Lower Extremity Examination RLE ROM Assessment RLE Assessment: Within Functional Limits Manual Muscle Testing - RLE Manual Muscle Testing - RLE: Within functional limits Sensation Light Touch: Right Lower Extremity: Intact Left Lower Extremity Examination LLE Assessment: Within Functional Limits Manual Muscle Testing: Within functional limits Sensation Light Touch: Left Lower Extremity: Intact Bed Mobility Bed Mobility Interventions: vc for reminder of spinal precuations Bed Mobility Exam: Rolling/Turning Level of Millard: Stand-by assist Physical/Nonphysical Assist: Verbal Cues Assistive Device: Bed rails Bed Mobility Exam: Supine to Sit Level of Millard: Contact guard Physical/Nonphysical Assist: Set-up required, Verbal Cues, Nonverbal cues (demo/gestures), HOB elevated, Minimal cues Transfers Transfer Exam: Sit to stand Level of Millard: Stand-by assist Physical/Nonphysical Assist: Set-up required Assistive Device: Walker, rolling Transfer Exam: Stand to Sit Level of Millard: Stand-by assist Physical/Nonphysical Assist: Verbal Cues, Set-up required Assistive Device: Walker, rolling Ambulation Device: Rolling walker Apparatus: None Assistance: Standby assist Distance : 25 ft Ambulation Comments: Pt demo decreased bilateral step length with left advancing further than rightas patient reporting more pain with right limb advancement. foot flat on IC and decreased hip extension given shorter stride Balance Postural Appearance Posture: Within Functional Limits Static Sitting Balance Static Sitting-Level of Assistance: Standby assist Dynamic Sitting Balance Level of Assistance: Standby assisst Static Standing Balance Static Standing-Balance Support: Right upper extremity support, Left upper extremity support Static Standing-Level of Assistance: Supervision Dynamic Standing Balance Dynamic Standing-Balance Support: Right upper extremity support, Left upper extremity support Dynamic Standing-Balance: Lateral weight shifts, Anterior/Posterior weight shifts Dynamic Standing Level of Assistance: Standby assist Participation in Functional Tasks: Close supervision Therapeutic Activity (18 minutes) Pt participated in therapeutic activity focused on progressing functional strength and safety, along with improving activity tolerance to upright position. Please refer to mobility sections for further details Standardized Assessments Standardized Assessments Standardized Assessments: [facility] 6-Clicks Mobility Assessment [facility] 6-Clicks Mobility Assessment Difficulty patient has turning over in bed (including adjusting bedclothes, sheets, and blankets)?:None Difficulty patient has sitting down on and standing up from a chair with arms (wheelchair, bedside commode, etc.)?: None Difficulty patient has moving from lying on back to sitting on the side of the bed?: None How much help does the patient need moving to and from a bed to a chair (including a wheelchair)?: None How much help does the patient need to walk in hospital room?: None How much help does the patient need climbing 3-5 steps with a railing?: A little [facility] 6-Clicks Mobility Assessment Total : 23 Standardized Assessments Standardized Assessments Standardized Assessments: [facility] 6-Clicks Mobility Assessment [facility] 6-Clicks Mobility Assessment Difficulty patient has turning over in bed (including adjusting bedclothes, sheets, and blankets)?:None Difficulty patient has sitting down on and standing up from a chair with arms (wheelchair, bedside commode, etc.)?: None Difficulty patient has moving from lying on back to sitting on the side of the bed?: None How much help does the patient need moving to and from a bed to a chair (including a wheelchair)?: None How much help does the patient need to walk in hospital room?: None How much help does the patient need climbing 3-5 steps with a railing?: A little [facility] 6-Clicks Mobility Assessment Total : 23 Assessment Pt demonstrated good mobility and is appropriate for home discharge once medically appropriate. Pt would benefit from skilled PT during admission to assist with progression of gait distance and gait mechanics. Impairments: Impaired balance, Impaired gait dynamics/performance, Decreased strength, Impaired functional mobility/transfers Activity Limitations: Inability to ambulate independently, Inability to transfer independently, Inability to complete ADLs independently Participation Restrictions: Self-care, Home management, Community leisure Activity Tolerance: Endurance does not limit participation in activity Evaluation/Treatment Tolerance: Patient limited by pain Diagnosis: difficulty with walking Rehab Potential: Good, to achieve stated therapy goals Eval Complexity History Profile: 1 - 2 personal factors and/or comorbidities Clinical Presentation: Evolving clinical presentation with changing characteristics Clinical Decision Making: Moderate complexity PT Recommendations Discharge Destination: Home with assistance Discharge Equipment: Patient owns appropriate equipment Plan Planned PT Interventions Balance training, Gait training, Strengthening, Neuromuscular re-education, Functional Mobility PT Frequency 4 - 6 times per week PT Duration 2 weeks Goals PT GOAL DETAILS Time Frame PT Goal 1: Pt will ascend and descend 2 steps with SBA 2 weeks PT Goal 2: Pt will ambulate 150 ft with LRAD and SBA 2 weeks PT Goal 3: Pt will be ind and compliant with HEP and safety recommendations throughout length of stay 2 weeks Written by Vish Nance on 12/31/21 at 1:28 PM. * Progress Notes - Negar Gonzalez, OT - 12/31/2021 10:38 AM EDT Occupational Therapy Evaluation Patient Name: Marianela Ceja Today's Date: 12/31/2021 OT Discharge Recommendations: Home with assistance Equipment Recommended: None History Nory Ceja is 66 y.o. female admitted 12/30/2021 for work-up of Anterolisthesis of lumbar spine. Problem List Active Hospital Problems Diagnosis Date Noted Neurogenic claudication due to lumbar spinal stenosis 12/30/2021 Anterolisthesis of lumbar spine 09/28/2021 Procedures 12/30/2021 Procedure(s): L4-5 MIS TLIF Past Medical History Patient has a past medical history of Arthritis, Dysphagia, FH: total knee replacement (2019), GERD(gastroesophageal reflux disease), Kidney stones, Motion sickness, Rheumatoid arthritis ([facility]), and Rotator cuff tear arthropathy of right shoulder. Past Surgical History Patient has a past surgical history that includes Joint replacement; Hip Arthroplasty; and Spinal fusion (12/30/2021). Precautions Medical Precautions: Spinal Spinal Precautions : No bending, lifting, twisting Subjective Pt agreeable to OT evaluation and recommendations Participants in Care Family/Caregiver Present: No Presentation Oxygen Therapy: None (Room air) Lines and Tubes: Intravenous access Pre-Session: Supine, Head of bed elevated, Lines intact Pre-Session Comments: RN consent to treat Post-Session: Sitting in chair, RN notified, Lines intact, Chair alarm, Call light in reach Post-Session Comments: All needs met prior to exit Home Living/Set-up Lives With: Spouse (patient also lives next door to family) Home Type: House Home Adaptive Equipment: None (pt uses walking sticks in winter time to stay stable) Home Layout: Stairs to enter without rails, One level Number of Stairs: 1 Bathroom: Tub/Shower: Walk-in shower Bathroom: Toilet: Elevated toilet seat without arms, Grab bars Prior Level of Function Receives Help From: No assist required prior to admission Level of Mobility: Ambulatory- community Mobility Millard: Independent gait without device History of Falls: Yes (pt reports ground level mechanical fall reporting she injured her right shoulder) ADL Performance: Independent Patient/Family Goals Statement Objective Pain Pt reporting 4/10 LBP. No increase with mobility. Positioned for comfort in chair at end of session. Delirium Screening Fisher Agitation Sedation Scale (RASS): Alert and calm Confusion Assessment Method-ICU (CAM-ICU/PCAM-ICU) Feature 3: Altered Level of Consciousness: Negative Cognition Overall Cognitive Status: Within Functional Limits Arousal/Alertness: Appropriate responses to stimuli Mood/Behavior: Alert Orientation Level: Oriented X4 Single Step Commands: Consistently Multi-Step Commands: Consistently Method of Communication: Verbal Right Upper Extremity Examination RUE ROM Assessment RUE Assessment: Within Functional Limits Manual Muscle Testing - RUE: Within functional limits except (shoulder not tested 3/5 shown with mobility; elbow and wrist/gas dispenser WFL) Sensation Light Touch: Right Upper Extremity: Intact Left Upper Extremity Examination LUE ROM Assessment LUE Assessment: Within Functional Limits Manual Muscle Testing - LUE: Within functional limits Sensation Light Touch: Left Upper Extremity: Intact Right Lower Extremity Examination RLE ROM Assessment RLE Assessment: Within Functional Limits Manual Muscle Testing - RLE: Within functional limits Sensation Light Touch: Right Lower Extremity: Intact Left Lower Extremity Examination LLE ROM Assessment LLE Assessment: Within Functional Limits Manual Muscle Testing: Within functional limits Sensation Light Touch: Left Lower Extremity: Intact Bed Mobility Bed Mobility Exam: Rolling/Turning Level of Millard: Stand-by assist Physical/Nonphysical Assist: Verbal Cues Bed Mobility Exam: Supine to Sit Level of Millard: Contact guard Physical/Nonphysical Assist: Set-up required, Verbal Cues, HOB elevated, Minimal cues Assistive Device: Bed rails Transfers Transfer Exam: Sit to stand Level of Millard: Stand-by assist Physical/Nonphysical Assist: Set-up required Assistive Device: Walker, rolling Transfer Exam: Stand to Sit Level of Millard: Stand-by assist Physical/Nonphysical Assist: Verbal Cues, Set-up required Assistive Device: Walker, rolling Balance Postural Appearance Posture: Within Functional Limits Static Sitting Balance Static Sitting-Level of Assistance: Standby assist Dynamic Sitting Balance Level of Assistance: Standby assisst Static Standing Balance Static Standing-Balance Support: Right upper extremity support, Left upper extremity support Static Standing-Level of Assistance: Supervision Dynamic Standing Balance Dynamic Standing-Balance Support: Right upper extremity support, Left upper extremity support Dynamic Standing-Balance: Lateral weight shifts, Anterior/Posterior weight shifts Dynamic Standing Level of Assistance: Standby assist Participation in Functional Tasks: Close supervision Self-Care Interventions Self Care/Home Management (ADLs) Time Entry: 18 Self-Care Interventions: Reviewed precautions. Pt able to verbalize 3/3 without difficulty. Reviewed technique for transition from supine to sitting EOB. Maintained sitting balance at EOB with SBA while performing LB dressing activities. Ambulated to bathroom with SBA and RW to perform grooming tasks and toilet hygiene needs. Grooming Grooming Level of Assistance: SBA Grooming Where Assessed: Standing sinkside Grooming Interventions: Pt stood at sink and brushed teeth with SBA UE Dressing UE Dressing Level of Assistance: SBA UE Dressing Where Assessed: (In standing) UE Dressing Interventions: Pt donned overhead shirt in standing with SBA Lower Extremity Dressing Pants Level of Assistance: Maximum assistance Adult Briefs Level of Assistance: Maximum assistance LE Dressing Where Assessed: Edge of bed LE Dressing Interventions: Pt assisted with donning underwear and pants while sitting EOB with max assist. Pt reports she has a dairy nutrition specialist and sock aid at home that she uses to assist with LB dressing. States she is familiar with use and does not need it to be reviewed. Pt stood from EOB with SBA and pulled up pants with SBA and increased time. Toileting Where Assessed: Toilet Toileting Interventions: Pt managed clothing in standing (Pulling clothing down and back up) at commode with SBA and increased time. Stood from elevated commode with SBA. Standardized Assessments Salvador Index Feeding: Independent Bathing: Independent (or in Shower) Grooming: Independent face/hair/teeth/shaving (implements provided) Dressing: Needs help but can do about half unaided Bowels: Continent Bladder: Continent Toilet Use: Independent (on and off, dressing, wiping) Transfers (Bed to Chair and Back): Minor help (verbal or physical) Mobility (on Level Surfaces): Walks with help or one person (verbal or physical) > 50 yards Stairs: Needs help (verbal, physical, carrying aid) Total Score: 80 Assessment OT Findings: No further OT needs indentified Eval Complexity Occupational Profile: Brief history including review of medical/therapy records relating to presenting problem Clinical Decision Making: Low Overall Eval complexity: Low OT Recommendations Discharge Destination: Home with assistance Discharge Equipment: None Plan Patient no longer demonstrates need for inpatient occupational therapy services. Patient to be discharged from occupational therapy. Written by Negar Gonzalez OT on 12/31/21 at 3:42 PM. * Consults - Jenniffer Ruiz RN - 12/31/2021 8:15 AM EDT Acute Pain Service Follow-Up Evaluation Marianela Ceja is a 66 y.o. female Visit Type: Routine Problem List Items Addressed This Visit Nervous Neurogenic claudication due to lumbar spinal stenosis Musculoskeletal * (Principal) Anterolisthesis of lumbar spine Pain Medications ibuprofen 600 MG tablet 3 (three) times a day. lamoTRIgine (LaMICtal) 150 MG tablet every 12 (twelve) hours. 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 rate 16, height 1.6 m (5' 3 ), weight 79.4 kg (175 lb), SpO2 97 %. 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.5 mg/ml; 0.1 mg Q6min; L4-5 Fusion; Hx: arthritis, RA, dysphagia, kidney stones Implants Hip Hip - Implanted (Left) Pelvis As of 12/30/2021 Status: Implanted Knee Knee - Implanted (Bilateral) Knee As of 12/30/2021 Status: Implanted Type Not Specified Graft Vivigen 5cc - [id number] - Implanted Spine Lumbar Inventory item: GRAFT VIVIGEN 5CC Model/Cat number: [id number] 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: [employer] [id number] Lot number: [id number] As of 12/30/2021 Status: Implanted Single Inner Setscrew - [id number] - Implanted Spine Lumbar Inventory item: SINGLE INNER SETSCREW Model/Cat number: [id number] 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: [employer] [id number] As of 12/30/2021 Status: Implanted Screw 6.0mm Viper Cfx Fen Xtab 45mm - [id number] - Implanted Spine Lumbar Inventory item: SCREW 6.0MM VIPER CFX FEN XTAB 45MM Model/Cat number: [id number] 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: [employer] [id number] As of 12/30/2021 Status: Implanted Screw 7.0mm Viper Cfx Fen Xtab 45mm - [id number] - Implanted Spine Lumbar Inventory item: SCREW 7.0MM VIPER CFX FEN XTAB 45MM Model/Cat number: [id number] 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: [employer] [id number] As of 12/30/2021 Status: Implanted Tlif-C Ui 10mm 8deg 01/01 - [id number] - Implanted Spine Lumbar Inventory item: TLIF-C UI 10MM 8DEG /10 Model/Cat number: [id number] 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: [employer] [id number] As of 12/30/2021 Status: Implanted Carlos Viper2 Lordotic 40mm - [id number] - Implanted Spine Lumbar Inventory item: CARLOS VIPER2 LORDOTIC 40MM Model/Cat number: [id number] 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: [employer]ine [employer] [id number] As of 12/30/2021 Status: Implanted Carlos Viper2 Lordotic 45mm - [id number] - Implanted Spine Lumbar Inventory item: CARLOS VIPER2 LORDOTIC 45MM Model/Cat number: [id number] 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: [employer] [id number] As of 12/30/2021 Status: Implanted Does the patient have any itching: No TREATMENT: Follow-Up: Follow-Up: Will continue to monitor and adjust as needed. Acute Pain Service Comments: Doing well; pain controlled ; used 46 medical coding specialist doses/ 19 hours (7.1mg Dilaudid) * Consults - Karen Gonzalez RN - 12/31/2021 12:56 AM EDT Acute Pain Service Follow-Up Evaluation Marianela Ceja is a 66 y.o. female Visit Type: Routine Problem List Items Addressed This Visit Nervous Neurogenic claudication due to lumbar spinal stenosis Musculoskeletal * (Principal) Anterolisthesis of lumbar spine Pain Medications ibuprofen 600 MG tablet 3 (three) times a day. lamoTRIgine (LaMICtal) 150 MG tablet every 12 (twelve) hours. 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 rate 16, height 1.6 m (5' 3 ), weight 79.4 kg (175 lb), SpO2 99 %. 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.5 mg/ml; 0.1 mg Q6min; L4-5 Fusion; Hx: arthritis, RA, dysphagia, kidney stones Implants Hip Hip - Implanted (Left) Pelvis As of 12/30/2021 Status: Implanted Knee Knee - Implanted (Bilateral) Knee As of 12/30/2021 Status: Implanted Type Not Specified Graft Vivigen 5cc - [id number] - Implanted Spine Lumbar Inventory item: GRAFT VIVIGEN 5CC Model/Cat number: [id number] 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: [employer] [id number] Lot number: [id number] As of 12/30/2021 Status: Implanted Single Inner Setscrew - [id number] - Implanted Spine Lumbar Inventory item: SINGLE INNER SETSCREW Model/Cat number: [id number] 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: [employer] [id number] As of 12/30/2021 Status: Implanted Screw 6.0mm Viper Cfx Fen Xtab 45mm - [id number] - Implanted Spine Lumbar Inventory item: SCREW 6.0MM VIPER CFX FEN XTAB 45MM Model/Cat number: [id number] 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: [employer] [id number] As of 12/30/2021 Status: Implanted Screw 7.0mm Viper Cfx Fen Xtab 45mm - [id number] - Implanted Spine Lumbar Inventory item: SCREW 7.0MM VIPER CFX FEN XTAB 45MM Model/Cat number: [id number] 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: [employer] [id number] As of 12/30/2021 Status: Implanted Tlif-C Ui 10mm 8deg 01/01 - [id number] - Implanted Spine Lumbar Inventory item: TLIF-C UI 10MM 8DEG 2810 Model/Cat number: [id number] 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: [employer] [id number] As of 12/30/2021 Status: Implanted Carlos Viper2 Lordotic 40mm - [id number] - Implanted Spine Lumbar Inventory item: CARLOS VIPER2 LORDOTIC 40MM Model/Cat number: [id number] 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: [employer] [id number] As of 12/30/2021 Status: Implanted Carlos Viper2 Lordotic 45mm - [id number] - Implanted Spine Lumbar Inventory item: CARLOS VIPER2 LORDOTIC 45MM Model/Cat number: [id number] 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: [employer] [id number] As of 12/30/2021 Status: Implanted Does the patient have any itching: No TREATMENT: 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 Acute Pain Service Comments: Pain Service comments: Pain controlled, no changes needed. Will continue Patient Controlled Analgesia infusion until primary service decides it is appropriate to discontinue. Patient received 36 doses in 24 hours with Patient Controlled Analgesia infusion for 3.6 mg Dilaudid. Encouraged patient to push pain button for adequate relief. Re-educated patient to use of Patient Controlled Analgesia infusion and button pushing for better pain control. * Care Plan - Juany Rosas - 12/30/2021 11:16 PM EDT Problem: Adult Inpatient Plan of Care Goal: Plan of Care Review Outcome: Ongoing, Progressing Flowsheets (Taken 12/30/2021 2316) Progress: no change Plan of Care Reviewed With: patient Goal: Patient-Specific Goal (Individualized) Outcome: Ongoing, Progressing Flowsheets (Taken 12/30/20211999) Patient-Specific Goals (Include Timeframe): pt will remain free of fall/injury during shift Individualized Care Needs: safety Anxieties, Fears or Concerns: none expressed Goal: Absence of Hospital-Acquired Illness or Injury Outcome: Ongoing, Progressing Goal: Optimal Comfort and Wellbeing Outcome: Ongoing, Progressing Goal: Readiness for Transition of Care Outcome: Ongoing, Progressing Problem: Pain Acute Goal: Acceptable Pain Control and Functional Ability Outcome: Ongoing, Progressing Problem: Bleeding (Spinal Surgery) Goal: Absence of Bleeding Outcome: Ongoing, Progressing Problem: Bowel Elimination Impaired (Spinal Surgery) Goal: Effective Bowel Elimination Outcome: Ongoing, Progressing Problem: Functional Ability Impaired (Spinal Surgery) Goal: Optimal Functional Ability Outcome: Ongoing, Progressing Problem: Infection (Spinal Surgery) Goal: Absence of Infection Signs and Symptoms Outcome: Ongoing, Progressing Problem: Neurologic Impairment (Spinal Surgery) Goal: Optimal Neurologic Function Outcome: Ongoing, Progressing Problem: Ongoing Anesthesia Effects (Spinal Surgery) Goal: Anesthesia/Sedation Recovery Outcome: Ongoing, Progressing Problem: Pain (Spinal Surgery) Goal: Acceptable Pain Control Outcome: Ongoing, Progressing Problem: Postoperative Nausea and Vomiting (Spinal Surgery) Goal: Nausea and Vomiting Relief Outcome: Ongoing, Progressing Problem: Postoperative Urinary Retention (Spinal Surgery) Goal: Effective Urinary Elimination Outcome: Ongoing, Progressing Problem: Fall Injury Risk Goal: Absence of Fall and Fall-Related Injury Outcome: Ongoing, Progressing Problem: Infection Goal: Absence of Infection Signs and Symptoms Outcome: Ongoing, Progressing Problem: Mobility Impairment Goal: Optimal Mobility Outcome: Ongoing, Progressing Problem: Self-Care Deficit Goal: Improved Ability to Complete Activities of Daily Living Outcome: Ongoing, Progressing * Consults - Toña Basilio RN - 12/30/2021 5:35 PM EDT Acute Pain Service Follow-Up Evaluation Marianela Ceja is a 66 y.o. female Visit Type: Routine Problem List Items Addressed This Visit Nervous Neurogenic claudication due to lumbar spinal stenosis Musculoskeletal * (Principal) Anterolisthesis of lumbar spine Pain Medications ibuprofen 600 MG tablet 3 (three) times a day. lamoTRIgine (LaMICtal) 150 MG tablet every 12 (twelve) hours. 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 rate 16, height 1.6 m (5' 3 ), weight 79.4 kg (175 lb), SpO2 95 %. 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.5 mg/ml; 0.1 mg Q6min; L4-5 Fusion; Hx: arthritis, RA, dysphagia, kidney stones Implants Hip Hip - Implanted (Left) Pelvis As of 12/30/2021 Status: Implanted Knee Knee - Implanted (Bilateral) Knee As of 12/30/2021 Status: Implanted Type Not Specified Graft Vivigen 5cc - [id number] - Implanted Spine Lumbar Inventory item: GRAFT VIVIGEN 5CC Model/Cat number: [id number] 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: [id number] Lot number: [id number] As of 12/30/2021 Status: Implanted Single Inner Setscrew - [id number] - Implanted Spine Lumbar Inventory item: SINGLE INNER SETSCREW Model/Cat number: [id number] 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: [employer] [id number] As of 12/30/2021 Status: Implanted Screw 6.0mm Viper Cfx Fen Xtab 45mm - [id number] - Implanted Spine Lumbar Inventory item: SCREW 6.0MM VIPER CFX FEN XTAB 45MM Model/Cat number: [id number] 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: [employer] [id number] As of 12/30/2021 Status: Implanted Screw 7.0mm Viper Cfx Fen Xtab 45mm - [id number] - Implanted Spine Lumbar Inventory item: SCREW 7.0MM VIPER CFX FEN XTAB 45MM Model/Cat number: [id number] 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: [employer] [id number] As of 12/30/2021 Status: Implanted Tlif-C Ui 10mm 8deg 01/01 - [id number] - Implanted Spine Lumbar Inventory item: TLIF-C UI 10MM 8DEG 28/10 Model/Cat number: [id number] 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: [employer] [id number] As of 12/30/2021 Status: Implanted Carlos Viper2 Lordotic 40mm - [id number] - Implanted Spine Lumbar Inventory item: CARLOS VIPER2 LORDOTIC 40MM Model/Cat number: [id number] 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: [employer] [id number] As of 12/30/2021 Status: Implanted Carlos Viper2 Lordotic 45mm - [id number] - Implanted Spine Lumbar Inventory item: CARLOS VIPER2 LORDOTIC 45MM Model/Cat number: [id number] 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: [employer] [id number] As of 12/30/2021 Status: Implanted Does the patient have any itching: No Follow-Up: Follow-Up: Will continue to monitor and adjust as needed. Acute Pain Service Comments: Pain Service comments: Pain controlled, no changes needed. Will continue Patient Controlled Analgesia infusion until primary service decides it is appropriate to discontinue. Patient received 19 doses in 4 hours with Patient Controlled Analgesia infusion for 2.9 mg hydromorphone. Encouraged patientto push pain button for adequate relief. Re-educated patient to use of Patient Controlled Analgesiainfusion and button pushing for better pain control. * Consults - Toña Basilio RN - 12/30/2021 12:58 PM EDT Acute Pain Service Initial Assessment Marianela Ceja is a 66 y.o. female Visit Type: Complex General Information: Referring Physician/ Service: Tarik Cadet MD Patient Profile Review: Yes Pertinent History of Current Problem: Problem List Items Addressed This Visit Nervous Neurogenic claudication due to lumbar spinal stenosis Musculoskeletal * (Principal) Anterolisthesis of lumbar spine Pertinent Home Medications: Prior to Admission medications Medication Sig Start Date End Date Taking? Authorizing Provider Cetirizine HCl (ZyrTEC ALLERGY) 10 MG capsule if needed. Yes Historical Provider, diclofenac (Voltaren) 1 % topical gel APPLY 2 GRAMS TOPICALLY 4 TIMES DAILY 02/26/21 Yes HistoricalProvider, ibuprofen 600 MG tablet 3 (three) times a day. 11/11/20 Yes Historical Provider, lamoTRIgine (LaMICtal) 150 MG tablet every 12 (twelve) hours. 05/09/13 Yes Historical Provider, omeprazole (PriLOSEC) [address] capsule 1 (one) time each day at the same time. 04/07/20 Yes Historical Provider, Pain medications prior to consult: Pain Medications ibuprofen 600 MG tablet 3 (three) times a day. lamoTRIgine (LaMICtal) 150 MG tablet every 12 (twelve) hours. Heart Rate and Blood Pressure: Heart Rate: 97 BP: (!) 183/82 Respiratory: Resp: 16 SpO2: 94 % RT Oxygen Therapy Oxygen Therapy: None (Room air) O2 Delivery Method: Nasal cannula O2 Flow Rate (L/min): 2 L/min; O2 Delivery Method: Nasal cannula Temp: 36.8 ??C (98.3 ??F) Labs: Labs in last 18 hours CBC WBC ?? Hb ?? Plt ?? Hct ?? ANC ?? INR ??, PTT ??, Anti-Xa ?? BMP Na ?? Cl ?? BUN ?? Glu ?? K ?? Co2 ?? Cr ?? Ca ?? iCa ?? Mg ??, Phos ?? Lactate ?? LFT AST ?? AlkPhos ?? T Prot ?? ALK ?? Bili ?? Alb ?? D.Bili ?? Allergies: No Known Allergies Medical History: Past Medical History: Diagnosis Date Other specified health status Patient denies medical problems Unspecified disorder of nose and nasal sinuses Sinus problem Unspecified osteoarthritis, unspecified site Arthritis Substance Use: Social History Tobacco Use Smoking Status Never Smokeless Tobacco Never reports that she has never smoked. She has never used smokeless tobacco. Social History Substance and Sexual Activity Alcohol Use No reports no history of alcohol use. Social History Substance and Sexual Activity Drug Use Never Comment: Drug use: No drug use reports no history of drug use. 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: [employer] [id number] As of 12/30/2021 Status: Implanted Screw 6.0mm Viper Cfx Fen Xtab 45mm - [id number] - Implanted Spine Lumbar Inventory item: SCREW 6.0MM VIPER CFX FEN XTAB 45MM Model/Cat number: [id number] 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: [employer] [id number] As of 12/30/2021 Status: Implanted Screw 7.0mm Viper Cfx Fen Xtab 45mm - [id number] - Implanted Spine Lumbar Inventory item: SCREW 7.0MM VIPER CFX FEN XTAB 45MM Model/Cat number: [id number] 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: [employer] [id number] As of 12/30/2021 Status: Implanted Tlif-C Ui 10mm 8deg 01/01 - [id number] - Implanted Spine Lumbar Inventory item: TLIF-C UI 10MM 8DEG 28/10 Model/Cat number: [id number] 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: [employer] [id number] As of 12/30/2021 Status: Implanted Carlos Viper2 Lordotic 40mm - [id number] - Implanted Spine Lumbar Inventory item: CARLOS VIPER2 LORDOTIC 40MM Model/Cat number: [id number] 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: [employer] [id number] As of 12/30/2021 Status: Implanted Carlos Viper2 Lordotic 45mm - [id number] - Implanted Spine Lumbar Inventory item: CARLOS VIPER2 LORDOTIC 45MM Model/Cat number: [id number] 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: [employer] [id number] As of 12/30/2021 Status: Implanted Pain Assessment: Pain Rating (0-10): 8 Comfort/ acceptable pain level (0-10): 6 Location: back, lumbar Frequency/ quality: constant Pain Information: Onset of pain: post op Pain related to: surgery Factors that aggravate pain: activity, breathing, ineffective pain medication (dosage/ frequency), and movement Factors that relieve pain: medications Pain Service Plan: 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 dilaudid 0.5 mg/ml STUDENT TRUCK DRIVER settin.1 mg q 6 minutes Basal rate: none Various methods of pain control discussed with patient and/ or family: YES. Discussed with doctor: Yes * Anesthesia PACU Signout - Reyes Mcgarry MD - 12/30/2021 12:45 PM EDT Patient: Marianela Ceja Anesthesia Type: No value filed. Vitals Value Taken Time BP 107/94 12/30/21 1230 Temp 36.9 12/30/21 1210 Pulse 93 12/30/21 1244 Resp 14 12/30/21 1244 SpO2 97 % 12/30/21 1244 Vitals shown include unvalidated device data. Anesthesia PACU Signout Patient location during evaluation: PACU Level of consciousness: baseline Pain management: adequate (pain score 0-3) Airway patency: natural airway Hydration status: acceptable PONV: none Cardiovascular status: acceptable Respiratory status: acceptable Discharge Disposition: home Cosigned by Chris Zaragoza MD at 12/30/2021 2:04 PM EDT Associated attestation - Chris Zaragoza MD - 12/30/2021 2:04 PM EDT I agree * Op Note - Tarik Cadet MD - 12/30/2021 9:20 AM EDT Operative Note Date: 12/30/21 Location: [facility] Name: Marianela Ceja, : 1955, Diagnoses: Pre-op Diagnosis 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 Rheumatoid arthritis, involving unspecified site, unspecified whether rheumatoid factor present (CMS/HCC) Class 1 obesity due to excess calories without serious comorbidity with body mass index (BMI) of 31.0 to 31.9 in adult Post-op Diagnosis 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 Rheumatoid arthritis, involving unspecified site, unspecified whether rheumatoid factor present (CMS/HCC) Class 1 obesity due to excess calories without serious comorbidity with body mass index (BMI) of 31.0 to 31.9 in adult Procedure(s): Posterior transforaminal diskectomy and endplate preparation for interbody arthrodesis: L4-5 Posterior laminectomy and bilateral foraminotomy greater than required for interbody arthrodesis: L4-5 Insertion biomechanical interbody device: L4-5 Posterior Nonsegmental spinal instrumentation: L4-5 Use of local autograft Use of morselized allograft Intraoperative neural monitoring Intraoperative fluoroscopy Intraoperative microscopy Attending Surgeon(s): * Tarik Cadet - Primary Manager Income Tax(s): * Alvin Mendez MD - Resident - Assisting Anesthesia: General ASA: ASA status not filed in the log. Blood Administration: Blood Product Administration History None Estimated Blood Loss: Minimal Drains: Urethral Catheter Temperature probe 16 Fr. (Active) Implants Type Name Action Serial No. GRAFT VIVIGEN 5CC - [id number] Implanted SINGLE INNER SETSCREW - [id number] Implanted SCREW 6.0MM VIPER CFX FEN XTAB 45MM - [id number] Implanted SCREW 7.0MM VIPER CFX FEN XTAB 45MM - [id number] Implanted TLIF-C UI 10MM 8DEG 28/ - [id number] Implanted CARLOS VIPER2 LORDOTIC 40MM - [id number] Implanted CARLOS VIPER2 LORDOTIC 45MM - [id number] Implanted Indications: Marianela Ceja is an 66 y.o. 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 Narrative: The patient was transferred to the operating room. She was positioned in a prone position. Preoperative prophylactic IV antibiotics were administered. Time-out was called verifying the patient's name, medical record number and levels of surgery. Under the guidance of the fluoroscopy unit we marked the L4 and L5 pedicles. Two paraspinous vertical incisions were made 4 cm from midline. This was carried down to the fascia using monopolar electrocautery. The jam maciel was used to feli the pedicles at L4. Under the guidance of the fluoroscopy unit we inserted both to the pedicles. K-wires were inserted in the pedicle markers were removed. Werepeated the same steps at the L5 level. The right-sided pedicle screws were inserted 1st and the left-sided were inserted later after decompression and interbody insertion. The following screws were inserted: L4: Right-sided 6 x 45 mm and left-sided 6 x 45 mm. L5: Right-sided 7 x 45 mm and left-sided 7 x 45 mm. After inserting the pedicle screws on the right side, sequential tubing was used over the L4-5 facet on the left side. The soft tissue was coagulated and removed. The pneumatic drill, upgoing curetteand Kerrison tools were used to remove the L4-5 facet on the left side. We also removed bilateral lamina using the Kerrison tool. The ligamentum flavum was from the dura and resected carefully. The bilateral neural foramina of L4 were patent by the end of the decompression part. Copious irrigation was performed. Hemostasis was achieved using bipolar electrocautery and FloSeal. Then we turned our attention to inserting the interbody. Eleven blade was used to have access to the L4-5 disc. The smallest disc space dilator was inserted into the disc space under the guidance of x-ray. We then used sequentially larger endplate Anjali and dilators to remove disc material and compare the endplates for arthrodesis. Then we used the curette and the pituitary chills to remove the disc at L4-5. Once we ensured that the endplates are cleaned off disc materials and prepared for arthrodesis we inserted autograft and ViviGen to the disc space using the funnel. The appropriately sized interbody spacer ([employer]) was selected, packed with a combination of morselized allograft and localautograft, and inserted into the disc space at L4-5 under direct fluoroscopic guidance. The following interbody was inserted into the space: L4-5: H 10 mm, 8??, 28/10 spacer. Autograft was inserted into the disc space after inserting the interbody as well. Copious irrigation was performed. The left-sided pedicle screws at L4 and 5 were inserted over the K-wires without difficulties. Right-sided 40 mm titanium carlos and left-sided 45 mm titanium carlos were placed and secured with caps. X-rays were taken at the end of the procedure. Copious irrigation was performed. Hemostasis was achieved using monopolar and bipolar electrocautery. The fascia was closed with 0 Vicryl in interrupted fashion. Vancomycin powder was placed above the fascia. The subcutaneous tissue was reapproximated using 2-0 Vicryl in interrupted fashion. The skin was reapproximated using 3-0 Monocryl in a subcuticular fashion. The incisions were covered with Prineo/Dermabond. At the end of the surgery all instrument counts and sponge counts were correct x2. The patient was extubated in the operating room and transferred to recovery in a stable condition. Dr. Cadet was present for all caicedo portions of the surgery. Complications: None; patient tolerated the procedure well. Submitted by: Alvin Mendez MD - 12/30/2021 * H&P - Alvin Mendez MD - 12/30/2021 5:20 AM EDT Chief Complaint Preop appointment. History Of Present Illness Marianela Ceja is a 66 y.o. female returns to the neurosurgical clinic today for preoperative assessment and planning. The patient is scheduled to undergo an MIS TLIF at L4-5 to be completed by Dr. Tarik Cadet on December 30, 2021. She was last seen in the clinic in September 2021 for continued surveillance regarding back pain. Her pain is worse with standing and activities. She states her pain resolves when she lies flat. She has had 1.5 years of physical therapy in the past which only made her pain worse, where she feels this is when her pain starts. She has also undergone epidural injections withoutbenefit. MRI imaging showed degenerative changes with facet arthropathy and facet joint signal paige es at L4-5. Lumbar flexion and extension films show a grade 1 spondylolisthesis at L4-5 which completely reduces in recumbency on her MRI. Options were discussed with the patient, including surgical intervention, as symptoms have been refractory to conservative management attempts. She has wished to proceed definitive treatment, as her quality of life is greatly decreased. Past Medical History She has a past medical history of Arthritis, Dysphagia, FH: total knee replacement (2018), GERD (gastroesophageal reflux disease), Kidney stones, Motion sickness, Rheumatoid arthritis ([facility]), and Rotator cuff tear arthropathy of right shoulder. Surgical History She has a past surgical history that includes Joint replacement and Hip Arthroplasty. Family History Family History Family History Problem Relation Name Age of Onset Arthritis Other Diabetes Other Hyperlipidemia Other Hypertension Other Social History She reports that she has never smoked. She has never used smokeless tobacco. She reports that she does not drink alcohol and does not use drugs. Medications Current Medications Current Outpatient Medications Medication Sig Dispense Refill Cetirizine HCl (ZyrTEC ALLERGY) 10 MG capsule if needed. diclofenac (Voltaren) 1 % topical gel APPLY 2 GRAMS TOPICALLY 4 TIMES DAILY ibuprofen 600 MG tablet 3 (three) times a day. lamoTRIgine (LaMICtal) 150 MG [...] and dry PSYCHE: normal mood and affect Neuro Exam GCS (EMV): 465 PERRL, EOMI CN 2-12 grossly intact No drift Strength: HF KE KF DF EHL PF RLE: 5/5 5/5 5/5 5/5 5/5 5/5 LLE: 5/5 5/5 5/5 5/5 5/5 5/5 Sensation was intact to light touch throughout Reflexes: Patellar (L4) Achilles (S1) Right: 1+ 1+ Left: 1+ 1+ Negative SLR test BL Negative Wes's test BL Negative ZULEMA test BL Last Recorded Vitals Visit Vitals Ht 1.6 m (5' 3 ) Wt 81.6 kg (180 lb) BMI 31.89 kg/m?? OB Status Postmenopausal Smoking Status Never BSA 1.9 m?? Labs Results from last 7 days Lab Units 12/23/21 1254 SODIUM mmol/L 140 POTASSIUM mmol/L 4.6 CHLORIDE mmol/L 106 CO2 mmol/L 23 BUN mg/dL 25* CREATININE mg/dL 0.83 EGFR mL/min/1.73m*2 78.3 GLUCOSE mg/dL 95 CALCIUM mg/dL 9.9 No lab exists for component: ALB Results from last 7 days Lab Units 12/23/21 1254 WBC 10*3/uL 7.54 HEMOGLOBIN g/dL 12.9 HEMATOCRIT % 39.2 PLATELETS 10*3/uL 280 Results from last 7 days Lab Units 12/23/21 1254 APTT sec 25 INR 1.0 Imaging No new imaging for review today. Assessment and Plan Marianela Ceja is a 66 y.o. female with symptomatic lumbar spondylolisthesis at L4-5 resulting in associated axial low back pain. Given the severe and unremitting nature of symptoms and having failed prior conservative management attempts, we feel neurosurgical intervention is reasonable to decompress spinal canal and nerves and to prevent further decline in mobility and function. No specific guarantees were given with regard to chronic axial pain. The specifics of a MIS L4-5 TLIF (left-sided approach) procedure were discussed and all questions answered. The patient is ready to proceed definitivetreatment, as her quality of life is greatly decreased. We will plan to proceed with the recommended surgery on December 30, [address] Tarik Cadet. After explaining the possible risks and benefitsof the proposed procedure, informed consent was obtained, documented, and scanned into the patient's chart. Preoperative laboratory studies and EKG were obtained prior to departure from clinic, and the patient was given instructions for the day of surgery. The patient will also be phone screened with preoperative anesthesia following this appointment. They will also be tested for COVID-19 at [facility] and [place], [place] prior to their scheduled surgery day. The patient is agreeable to plan of care. They had the opportunity to ask questions, all of which were answered to their satisfaction. To OR today with Dr. Cadet Cosigned by Tarik Cadet MD at 12/30/2021 8:15 AM EDT * PAT Phone Note - Emilee Grant RN - 12/22/2021 1:26 PM EDT ZAHIDA Ceja is a 66 y.o. female who presents with Pre-op Diagnosis * Anterolisthesis of lumbar spine [M43.16] now scheduled for L4-5 MIS TLIF (N/A). Past Medical History: Diagnosis Date Arthritis osteo and rhuematoid Dysphagia esophagitis FH: total knee replacement 2019 GERD (gastroesophageal reflux disease) Motion sickness Rotator cuff tear arthropathy of right shoulder [...] HIP ARTHROPLASTY JOINT REPLACEMENT knee - both No Known Allergies MEDICATIONS: No current facility-administered medications for this encounter. Current Outpatient Medications: ZyrTEC ALLERGY, if needed. diclofenac, APPLY 2 GRAMS TOPICALLY 4 TIMES DAILY ibuprofen, 3 (three) times a day. lamoTRIgine, every 12 (twelve) hours. omeprazole, 1 (one) time each day at the same time. Anesthesia Evaluation Physical Exam Anesthesia Plan Emilee Grant RN * Preprocedure Instructions - Emilee Grant RN - 12/22/2021 1:24 PM EDT Current Medications Medication Instructions Cetirizine HCl (ZyrTEC ALLERGY) 10 MG capsule Take morning of surgery diclofenac (Voltaren) 1 % topical gel Hold day of surgery ibuprofen 600 MG tablet Hold 3-5 days before surgery lamoTRIgine (LaMICtal) 150 MG tablet Take morning of surgery omeprazole (PriLOSEC) [address] capsule Take morning of surgery General Preoperative Instructions [...] card, photo ID, along with power of senior attorney, guardianship or advanced directives if applicable [...] LUMBAR SPINE 2 OR 3 VIEWS Routine 12/30/2021 6:46 PM EDT FL LESS THAN 1 HOUR (NON-REPORTABLE) Routine 12/30/2021 12:00 PM EDT FUSION, SPINE, LUMBAR, MINIMALLY INVASIVE 12/30/2021 7:48 AM EDT 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 Rheumatoid arthritis, involving unspecified site, unspecified whether rheumatoid factor present ([facility]) Class 1 obesity due to excess calories without serious comorbidity with body mass index (BMI) of 31.0 to 31.9 in adult documented in this encounter Results * XR Lumbar Spine 2 or 3 Views (12/30/2021 6:46 PM EDT) Anatomical Region Laterality Modality Spine, L-spine Computed Radiogr aphy Impressions 12/30/2021 11:11 AM EDT There is obscuration due to overlying bowel gas of the lumbar spine with chronic compression seen of L1. Multilevel degenerative changes with no grossly displaced fracture or dislocation. CRITICAL RESULT: ?? No. COMMUNICATION: Per this written report. Dictated by Nory Figueroa on 12/30/2021 11:10 AM Signed by Nory Figueroa on 12/30/2021 11:11 AM Narrative 12/30/2021 11:11 AM EDT Exam/Procedure: 2 view lumbar spine CLINICAL INDICATION: Low back pain TECHNIQUE: AP and lateral views of the lumbar spine COMPARISON: None. FINDINGS: AP and lateral views of the lumbar spine reveal minimal multilevel degenerative changes seen within the lumbar spine. Obscuration due to overlying stool and bowel gas. The sacrum is not well seen on this examination. No gross displacement. There is satisfactory alignment with chronic loss of height of L1. Mild anterior spurring seen throughout the lumbar spine. Procedure Note Nory Figueroa MD - 12/30/2021 Exam/Procedure: 2 view lumbar spine CLINICAL INDICATION: Low back pain TECHNIQUE: AP and lateral views of the lumbar spine COMPARISON: None. FINDINGS: AP and lateral views of the lumbar spine reveal minimal multileveldegenerative changes seen within the lumbar spine. Obscuration due tooverlying stool and bowel gas. The sacrum is not well seen on thisexamination. No gross displacement. There is satisfactory alignment withchronic loss of height of L1. Mild anterior spurring seen throughout thelumbar spine. IMPRESSION: There is obscuration due to overlying bowel gas of the lumbar spine withchronic compression seen of L1. Multilevel degenerative changes with nogrossly displaced fracture or dislocation. CRITICAL RESULT: No. COMMUNICATION: Per this written report. Dictated by Nory Figueroa on 12/30/2021 11:10 AM Signed by Nory Figueroa on 12/30/2021 11:11 AM us Tarik Cadet MD IMG XR PROCEDURES Final Result * FL Less than 1 Hour Intraoperative (12/30/2021 12:00 PM EDT) Narrative IMAGING - 12/30/2021 1:18 PM EDT Images were obtained for surgical purposes. ??See Tarik Cadet's surgical note in the patient's chart for the findings. us Tarik Cadet MD IMG FLUOROSCOPY PROCEDURES [place] l Result IMAGING documented in this encounter Visit Diagnoses Diagnosis Anterolisthesis of lumbar spine- Primary Neurogenic claudication due to lumbar spinal stenosis Spinal stenosis of lumbar region Anterolisthesis of lumbar spine Neurogenic claudication due to lumbar spinal stenosis Spinal stenosis of lumbar region documented in this encounter Admitting Diagnoses Diagnosis Anterolisthesis of lumbar spine Neurogenic claudication due to lumbar spinal stenosis Spinal stenosis of lumbar region documented in this encounter Administered Medications Inactive Administered Medications - up to 3 most recent administrations Medication Order MAR Action Action Date Dose Rate Site acetaminophen (Tylenol) tablet 650 mg 650 mg, Oral, Every 8 hours, First dose on 12/30/21 at 0845, Until Discontinued, Routine, Recovery(Phase II-Outpatient)/On Unit(Inpatient) Given 01/01/2022 8:45 AM EDT 650 mg Given 12/31/2021 11:58 PM EDT 650 mg Given 12/31/2021 4:07 PM EDT 650 mg ceFAZolin (Ancef) injection 2 g 2 g, Intravenous, Every 8 hours, 3 doses, First dose on 12/30/21 at 0845, Last dose on Emma 12/31/21 at 0045, Routine, Recovery(Phase II-Outpatient)/On Unit(Inpatient) Given 12/31/2021 12:13 AM EDT 2 g Given 12/30/2021 4:38 PM EDT 2 g cyclobenzaprine (Flexeril) tablet 10 mg 10 mg, Oral, 3 times daily, First dose (after last modification) on Tue01/01/22 at 0900, Until Discontinued, Routine, Recovery(Phase II-Outpatient)/On Unit(Inpatient) Given 01/01/2022 3:33 PM EDT 10 mg Given 01/01/2022 8:50 AM EDT 10 mg cyclobenzaprine (Flexeril) tablet 5 mg 5 mg, Oral, 3 times daily, First dose on Tue12/30/21 at 0900, Until Discontinued, Routine, Recovery(Phase II-Outpatient)/On Unit(Inpatient) Given 12/31/2021 8:56 PM EDT 5 mg Given 12/31/2021 3:21 PM EDT 5 mg Given 12/31/2021 9:24 AM EDT 5 mg diclofenac (Voltaren) 1 % topical gel Transdermal, Daily, First dose on Tue12/31/21 at 0900, Until Discontinued, Routine Given 01/01/2022 8:46 AM EDT Other Given 12/31/2021 9:26 AM EDT Ot her enoxaparin (Lovenox) syringe 40 mg 40 mg, Subcutaneous, Daily, First dose on Tue12/31/21 at 0900, Until Discontinued, Routine, Recovery(Phase II-Outpatient)/On Unit(Inpatient) Given 01/01/2022 8:46 AM EDT 40 mg Ri ght Upper Abdomen Given 12/31/2021 9:26 AM EDT 40 mg Le ft Lower Abdomen hydrALAZINE (Apresoline) injection 20 mg 20 mg, Intravenous, Every 1 hour PRN, Starting on Tue12/30/21 at 0820, Until Tue01/01/22 at 1758, Routine, Recovery(Phase II-Outpatient)/On Unit(Inpatient), high blood pressure, SBP > 150 Given 12/30/2021 8:23 PM EDT 20 mg HYDROmorphone 25 mg in 50 mL NS (0.5 mg/mL) STUDENT TRUCK DRIVER (naive protocol) Patient STUDENT TRUCK DRIVER Dose: 0.1 mg, STUDENT TRUCK DRIVER Lockout: 6 Minutes, Continuous Dose (MG/hr): 0 mg/hr, Nurse Loading Dose: 0.4 mg, Intravenous, STAT New Syringe/Cartridge 12/30/2021 1:30 PM EDT HYDROmorphone bolus dose 0.2-0.8 mg 0.2-0.8 mg, Intravenous, Every 15 min PRN, Starting on Tue12/30/21 at 1256, Until Tue12/31/21 at 0918, Routine, severe pain Bolus from Bag 12/31/2021 12:40 AM EDT 0.8 mg Bolus from Bag 12/30/2021 6:12 PM EDT 0.6 mg Bolus from Bag 12/30/2021 2:37 PM EDT 0.6 mg lamoTRIgine (LaMICtal) tablet 300 mg 300 mg, Oral, Daily, First dose on Tue12/31/21 at 0900, Until Discontinued, Routine Given 01/01/2022 8:4 4 AM EDT 300 mg Given 12/31/2021 9:25 AM EDT 300 mg ondansetron (Zofran) injection 4 mg 4 mg, Intravenous, Every 6 hours PRN, Starting on Tue12/30/21 at 0820, Until Tue01/01/22 at 1758, Routine, Recovery(Phase II-Outpatient)/On Unit(Inpatient), nausea, vomiting oxyCODONE (Roxicodone) immediate release tablet 10 mg 10 mg, Oral, Every 6 hours PRN, Starting on Emma 12/31/21 at 0918, Until Tue01/01/22 at 1758, Routine, moderate pain oxyCODONE (Roxicodone) immediate release tablet 5 mg 5 mg, Oral, Every 6 hours PRN, Starting on Emma 12/31/21 at 0918, Until Tue01/01/22 at 1758, Routine, moderate pain Given 01/01/2022 1:18 PM EDT 5 mg Given 01/01/2022 8:45 AM EDT 5 mg Given 01/01/2022 4:22 AM EDT 5 mg pantoprazole (Protonix) EC tablet 40 mg 40 mg, Oral, Daily before breakfast, First dose on Tue12/30/21 at 0915, Until Discontinued, Routine Given 01/01/2022 8:45 AM EDT 40 mg Given 12/31/2021 9:25 AM EDT 40 mg polyethylene glycol (Miralax) packet 17 g 17 g, Oral, 2 times daily, First dose on Tue12/31/21 at 0900, Until Discontinued, Routine Given 01/01/2022 8:46 AM EDT 17 g Given 12/31/2021 8:55 PM EDT 17 g Povidone-Iodine 5 % swab solution 1 Swab Nasal, Daily, 5 doses, First dose on Tue12/31/21 at 1015, Last dose on Tue01/04/22 at 0900, Routine Given 01/01/2022 8:46 AM EDT 1 Swab. senna-docusate (Yudelka-Colace) 8.6-50 MG per tablet 1 tablet 1 tablet, Oral, 2 times daily, First dose on Tue12/30/21 at 0900, Until Discontinued, Routine, Recovery(Phase II-Outpatient)/On Unit(Inpatient) Given 12/30/2021 8:16 PM EDT 1 tablet senna-docusate (Yudelka-Colace) 8.6-50 MG per tablet 2 tablet 2 tablet, Oral, 2 times daily, First dose on Tue12/31/21 at 0900, Until Discontinued, Routine Given 01/01/2022 8:45 AM EDT 2 tablets Given 12/31/2021 8:56 PM EDT 2 tablets Given 12/31/2021 9:26 AM EDT 1 tablet sodium chloride 0.9 % with KCl 20 mEq/L infusion 75 mL/hr, Intravenous, Continuous, Starting on Tue12/30/21 at 0845, Until Tue12/31/21 at 0625, Routine New Bag 12/31/2021 3:01 AM EDT 75 mL/hr 75 mL/hr New Bag 12/30/2021 12:41 PM EDT 75 mL/hr 75 mL/hr documented in this encounter Active and Recently Administered Medications Times are shown in EDT. Scheduled Medication Order 12/30/2021 12/31/2021 01/01/2022 acetaminophen (Tylenol) tablet 650 mg 650 mg, Oral, Every 8 hours, First dose on Tue12/30/21 at 0845, Until Discontinued, Routine, Recovery(Phase II-Outpatient)/On Unit(Inpatient) 0845 (Canceled Entry - Provider: Automatic Discharge Provider - Comment: Automatically canceled at discontinue of medication order)1638 (Given - Provider: Henrry Mohan RN) 0013 (Given - Provider: Juany Rosas)0925 (Given - Provider: Ozzie Mccarthy RN)1607 (Given - Provider: Ozzie Mccarthy RN)2358 (Given - Provider: Juany Rosas) 0845 (Given - Provider: Leyla Flores RN)1645 (Canceled Entry - Provider: Automatic Discharge Provider - Comment: Automatically canceled at discontinue of medication order) ceFAZolin (Ancef) injection 2 g () 2 g, Intravenous, Every 8 hours, 3 doses, First dose on Tue12/30/21 at 0845, Last dose on Tue12/31/21 at 0045, Routine, Recovery(Phase II-Outpatient)/On Unit(Inpatient) 0845 (Due)1638 (Given - Provider: Henrry Mohan RN) 0013 (Given - Provider: Juany Rosas) cyclobenzaprine (Flexeril) tablet 10 mg 10 mg, Oral, 3 times daily, First dose (after last modification) on Tue01/01/22 at 0900, Until Discontinued, Routine, Recovery(Phase II-Outpatient)/On Unit(Inpatient) 0850 (Given - Provider: Leyla Flores RN)1533 (Given - Provider: Leyla Flores RN) cyclobenzaprine (Flexeril) tablet 5 mg (CANCELED) 5 mg, Oral, 3 times daily, First dose on Tue12/30/21 at 0900, Until Discontinued, Routine, Recovery(Phase II-Outpatient)/On Unit(Inpatient) 0900 (Due)1638 (Given - Provider: Henrry Mohan RN)2015 (Given - Provider: Juany Rosas) 0924 (Given - Provider: Ozzie Mccarthy RN)1521 (Given - Provider: Ozzie Mccarthy RN)205 (Given - Provider: Juany Rosas) diclofenac (Voltaren) 1 % topical gel Transdermal, Daily, First dose on Tue12/31/21 at 0900, Until Discontinued, Routine 0926 (Given - Provider: Ozzie Mccarthy RN - Comment: right shoulder) 0846 (Given - Provider: Leyla Flores RN) enoxaparin (Lovenox) syringe 40 mg 40 mg, Subcutaneous, Daily, First dose on Tue12/31/21 at 0900, Until Discontinued, Routine, Recovery(Phase II-Outpatient)/On Unit(Inpatient) 0926 (Given - Provider: Ozzie Mccarthy RN) 0846 (Given - Provider: Leyla Flores RN) lactated Ringer's infusion (COMPLETED) 100 mL/hr, Intravenous, Once, 1 dose, On Tue12/30/21 at 0800, Routine 0740 (New Bag - Provider: Willow Monsivais DO)0933 (Anesthesia Volume Adjustment - Provider: Willow Monsivais DO)1028 (Anesthesia Volume Adjustment - Provider: Willow Monsivais DO)1107 (Anesthesia Volume Adjustment - Provider: Willow Monsivais DO)1133 (Stopped - Provider: Mariana Augustine MD) lamoTRIgine (LaMICtal) tablet 300 mg 300 mg, Oral, Daily, First dose on Tue12/31/21 at 0900, Until Discontinued, Routine 0925 (Given - Provider: Ozzie Mccarthy RN) 0844 (Given - Provider: Leyla Flores RN) pantoprazole (Protonix) EC tablet 40 mg 40 mg, Oral, Daily before breakfast, First dose on Tue12/30/21 at 0915, Until Discontinued, Routine 0915 (Canceled Entry - Provider: Automatic Discharge Provider - Comment: Automatically canceled at discontinue of medication order) 0925 (Given - Provider: Ozzie Mccarthy, CRISELDA) 0845 (Given - Provider: Leyla Flores, CRISELDA) polyethylene glycol (Miralax) packet 17 g 17 g, Oral, 2 times daily, First dose on Tue12/31/21 at 0900, Until Discontinued, Routine 0936 (Not Given - Provider: Ozzie Mccarthy RN - Reason: Patient/family refused)2054 (Given - Provider: Juany Rosas) 0846 (Given - Provider: Leyla Flores, RN) Povidone-Iodine 5 % swab solution 1 Swab Nasal, Daily, 5 doses, First dose on Emma 12/31/21 at 1015, Last dose on Tue01/04/22 at 0900, Routine 1213 (Not Given - Provider: Ozzie Mccarthy, CRISELDA - Reason: Hold for condition: must add comment - Comment: no indication, estes has been removed) 0846 (Given - Provider: Leyla Flores, CRISELDA) senna-docusate (Yudelka-Colace) 8.6-50 MG per tablet 1 tablet (CANCELED) 1 tablet, Oral, 2 times daily, First dose on Tue12/30/21 at 0900, Until Discontinued, Routine, Recovery(Phase II-Outpatient)/On Unit(Inpatient) 0900 (Due)2015 (Given - Provider: Juany Rosas) senna-docusate (Yudelka-Colace) 8.6-50 MG per tablet 2 tablet 2 tablet, Oral, 2 times daily, First dose on Emma 12/31/21 at 0900, Until Discontinued, Routine 09 (Given - Provider: Ozzie Mccarthy, CRISELDA - Comment: pt would only like 1 tablet)2055 (Given - Provider: Juany Rosas) 0845 (Given - Provider: Leyla Flores RN) Continuous Medication Order 12/30/2021 12/31/2021 01/01/2022 HYDROmorphone 25 mg in 50 mL NS (0.5 mg/mL) STUDENT TRUCK DRIVER (naive protocol) (CANCELED)(Linked Group 1) Patient STUDENT TRUCK DRIVER Dose: 0.1 mg, STUDENT TRUCK DRIVER Lockout: 6 Minutes, Continuous Dose (MG/hr): 0 mg/hr, Nurse Loading Dose: 0.4 mg, Intravenous, STAT 1330 (New Syringe/Cartridge - Provider: Chente Natarajan RN)1922 (Handoff - Provider: Ozzie Mccarthy, CRISELDA) sodium chloride 0.9 % with KCl 20 mEq/L infusion (CANCELED) 75 mL/hr, Intravenous, Continuous, Starting on Tue12/30/21 at 0845, Until Emma 12/31/21 at 0625, Routine 1241 (New Bag - Provider: Henrry Mohan RN) 0301 (New Bag - Provider: Juany Rosas) PRN Medication Order 12/30/2021 12/31/2021 01/01/2022 bupivacaine PF (Marcaine) 0.25 % injection (CANCELED) As needed, Starting on Tue12/30/21 at 1121, Until Tue12/30/21 at 1206, Routine, Intraprocedure 1121 (Given - Provider: Tarik Cadet MD - Comment: on field) hydrALAZINE (Apresoline) injection 20 mg 20 mg, Intravenous, Every 1 hour PRN, Starting on Tue12/30/21 at 0820, Until Tue01/01/22 at 1758, Routine, Recovery(Phase II-Outpatient)/On Unit(Inpatient), high blood pressure, SBP > 150 2022 (Given - Provider: Juany Rosas) HYDROmorphone bolus dose 0.2-0.8 mg (CANCELED)(Linked Group 1) 0.2-0.8 mg, Intravenous, Every 15 min PRN, Starting on Tue12/30/21 at 1256, Until Emma 12/31/21 at 0918, Routine, severe pain 1437 (Bolus from Bag - Provider: Henrry Mohan RN - Comment: bolus authozied by pain service via telephone)1812 (Bolus from Bag - Provider: Ozzie Mccarthy RN) 0040 (Bolus from Bag - Provider: Juany Rosas) lidocaine-EPINEPHrine (Xylocaine W/EPI) 1.5 %-[id number] injection (CANCELED) As needed, Starting on Tue12/30/21 at 0932, Until Tue12/30/21 at 1206, Routine, Intraprocedure 0932 (Given - Provider: Tarik Cadet MD - Comment: 30ml on field) ondansetron (Zofran) injection 4 mg 4 mg, Intravenous, Every 6 hours PRN, Starting on Tue12/30/21 at 0820, Until Tue01/01/22 at 1758, Routine, Recovery(Phase II-Outpatient)/On Unit(Inpatient), nausea, vomiting oxyCODONE (Roxicodone) immediate release tablet 10 mg(Linked Group 2) 10 mg, Oral, Every 6 hours PRN, Starting on Emma 12/31/21 at 0918, Until Tue01/01/22 at 1758, Routine, moderate pain 0954 (See Alternative - Provider: Ozzie Mccarthy, CRISELDA)1207 (See Alternative - Provider: Ozzie Mccarthy, CRISELDA)1607 (See Alternative - Provider: Ozzie Mccarthy RN)1924 (See Alternative - Provider: Ozzie Mccarthy RN)2358 (See Alternative - Provider: Juany Rosas) 0422 (See Alternative - Provider: Juany Rosas)0845 (See Alternative - Provider: Leyla Flores RN)1318 (See Alternative - Provider: Leyla Flores RN) oxyCODONE (Roxicodone) immediate release tablet 5 mg(Linked Group 2) 5 mg, Oral, Every 6 hours PRN, Starting on Emma 12/31/21 at 0918, Until Tue01/01/22 at 1758, Routine, moderate pain 0954 (Given - Provider: Ozzie Mccarthy RN)1207 (Given - Provider: Ozzie Mccarthy, RN)1607 (Given - Provider: Ozzie Mccarthy RN)1924 (Given - Provider: Ozzie Mccarthy RN)2358 (Given - Provider: Juany Rosas) 0422 (Given - Provider: Juany Rosas)0845 (Given - Provider: Leyla Flores RN)1318 (Given - Provider: Leyla Flores RN) thrombin (recombinant) (Recothrom) topical solution (CANCELED) As needed, Starting on Tue12/30/21 at 0933, Until Tue12/30/21 at 1206, Routine 0933 (Given - Provider: Tarik Cadet MD) vancomycin (Vancocin) vial for injection (CANCELED) As needed, Starting on Tue12/30/21 at 1121, Until Tue12/30/21 at 1206, Routine, Intraprocedure 1121 (Given - Provider: Tarik Cadet MD) Linked Groups Order Group 1: HYDROmorphone 25 mg in 50 mL NS (0.5 mg/mL) STUDENT TRUCK DRIVER (naive protocol) (CANCELED)Jump to med Patient STUDENT TRUCK DRIVER Dose: 0.1 mg, STUDENT TRUCK DRIVER Lockout: 6 Minutes, Continuous Dose (MG/hr): 0 mg/hr, Nurse Loading Dose: 0.4 mg, Intravenous, STAT And HYDROmorphone bolus dose 0.2-0.8 mg (CANCELED)Jump to med 0.2-0.8 mg, Intravenous, Every 15 min PRN, Starting on Tue12/30/21 at 1256, Until Tue12/31/21 at 0918, Routine, severe pain Group 2: oxyCODONE (Roxicodone) immediate release tablet 5 mgJump to med 5 mg, Oral, Every 6 hours PRN, Starting on Emma 12/31/21 at 0918, Until Tue01/01/22 at 1758, Routine, moderate pain Or oxyCODONE (Roxicodone) immediate release tablet 10 mgJump to med 10 mg, Oral, Every 6 hours PRN, Starting on Emma 12/31/21 at 0918, Until Tue01/01/22 at 1758, Routine, moderate pain documented in this encounter Additional Health Concerns Assessment Noted Time A fall risk assessment has been complete d for the patient 12/23/2021 11:53 AM EDT documented as of this encounter Care Teams Belt Molder Relationship Specialty Start Date End Date Amber Bedolla APRN [facility] [address] [address] PCP - General 07/18/20 Tarik Cadet MD [address] [address] Surgeon Neurosurgery 05/25/21 documented as of this encounter
--- OUTSIDE RECORDS SUMMARY | 2024-02-08 13:14 | XMS_ITS | Encounter Summary ---
Author Organization [facility] Address [address] [place] [address] Care Team Providers Care Senior Procurement Manager Name Role Phone Amber Bedolla APRN Primary Care Provider [phone] Tarik Cadet MD Unavailable [phone] Encounter Details Date Type Department Care Team (Latest Contact Info) Description 12/28/2021 Travel Social History Tobacco Use Types Packs/Day [...] documented as of this encounter Care Teams Senior Procurement Manager Relationship Specialty Start Date End Date Amber Bedolla APRN [address] [place] [address] PCP - General 07/18/20 Tarik Cadet MD [id number] [place] [address] Surgeon Neurosurgery 05/25/21 documented as of this encounter
--- OUTSIDE RECORDS SUMMARY | 2024-02-08 13:14 | XMS_ITS | Encounter Summary ---
Author Organization Healthcare Address [address] [place] [address] Care Team Providers Care Dining Services Director Name Role Phone Amber Bedolla VIVIENNE Primary Care Provider [phone] Tarik Cadet MD Unavailable [phone] Encounter Details Date Type Department Care Team (Late st Contact Info) Description 12/25/2021 Orders Only [place] [facility] [address] [place] [address] Tarik Cadet MD [address] [place] [address] Anterolisthesis of lumbar spine (Primary Dx); DDD (degenerative disc disease), lumbar; Viral syndrome Social History Tobacco Use Types Packs/Day Years [...] drink first t mony in the morning (EYE-SCALE OPERATOR) to steady your nerves or to [...] as of this encounter Visit Diagnoses Diagnosis Anterolisthesis of lumbar spine- Primary DDD (degenerative disc disease), lumbar Degeneration of lumbar or lumbosacral intervertebral disc Viral syndrome Unspecified viral infection, in conditions classified elsewhere and of unspecified site documented in this encounter Additional Health Concerns Assessment Noted Time A fall risk assessment has been complete d for the patient 12/23/2021 11:53 AM EDT documented as of this encounter Care Teams Dining Services Director Relationship Specialty Start Date End Date Amber Bedolla APRN [facility] [address] PCP - General 07/18/20 Tarik Cadet MD [address] [facility] [address] [place] [address] Surgeon Neurosurgery 05/25/21 documented as of this encounter
--- OUTSIDE RECORDS SUMMARY | 2024-02-08 13:14 | XMS_ITS | Encounter Summary ---
Author Organization Healthcare Address [address] [place] [address] Care Team Providers Care Gateman Name Role Phone Amber Bedolla Antonio PALAFOX Primary Care Provider [phone] Tarik Cadet MD Unavailable [phone] Reason for Visit * Reason Comments Post-op Encounter Details Date Type Department Care Team (Late st Contact Info) Description 01/13/2022 11:00 AM EST Clinical Support [place] [facility] [address] [place] [id number] Maria E Guzmán RN [facility] S/P lumbar spinal fusion (Primary Dx) Social [...] drink first t mony in the morning (EYE-DATABASE ADMINISTRATION PROJECT MANAGER) to steady your nerves or to [...] Sign Reading Time Taken Comments Blood Pressure - - Pulse - - Temperature - - Respiratory Rate - - Oxygen Saturation - - Inhaled Oxygen Concentration - - Weight 79.4 kg (175 lb) 01/13/2022 10:43 AM EST Height 160 cm (5' 3 ) 01/13/2022 10:43 AM EST Body Mass Index 31 01/13/2022 10:43 AM EST documented in this encounter Miscellaneous Notes * Clinician Note - Ramirez, Maria E Schulte RN - 01/13/2022 11:00 AM EST Images from the original note were not included. We had the pleasure of seeing your patient in our clinic today for Neurosurgical post-op visit. Chief Complaint Patient presents with Post-op History Of Present Illness Marianela Ceja is a 67 y.o. female who presents to neurosurgical clinic today for follow-up 2 weeks status post MIS TLIF at L4-[address] Cadet. Preoperatively, the patient was experiencing pain is worse with standing and activities. She states her pain resolves when she lies flat. She has had 1.5 years of physical therapy in the past which only made her pain worse, where she feels this is when her pain starts. She has also undergone epidural injections without benefit. Past Medical History: Diagnosis Date Arthritis osteo and rhuematoid Dysphagia esophagitis FH: total knee replacement 2018 GERD (gastroesophageal reflux disease) Kidney stones Motion sickness Rheumatoid arthritis (CMS/HCC) Rotator cuff tear arthropathy of right shoulder Past Surgical History: Procedure Laterality Date HIP ARTHROPLASTY JOINT REPLACEMENT knee - both SPINAL FUSION 12/30/2021 L4/5 MIS TLIF Family History Problem Relation Name Age of Onset Arthritis Other Diabetes Other Hyperlipidemia Other Hypertension Other Social History Tobacco Use Smoking status: Never Smokeless tobacco: Never Vaping Use Vaping Use: Never used Substance Use Topics Alcohol use: No Drug use: Never Comment: Drug use: No drug use Current Outpatient Medications Medication Instructions Cetirizine HCl (ZyrTEC ALLERGY) 10 MG capsule As needed cyclobenzaprine (FLEXERIL) 10 mg, Oral, 3 times daily diclofenac (Voltaren) 1 % topical gel APPLY 2 GRAMS TOPICALLY 4 TIMES DAILY lamoTRIgine (LaMICtal) 150 MG tablet Every 12 hours omeprazole (PriLOSEC) [address] capsule Every 24 hours Neuro Exam GCS (EMV): 465 Lumbar Incisions are clean, dry, and intact. Incisions is without redness, ecchymosis, edema, and drainage and edges are approximated. Visit Vitals Ht 1.6 m (5' 3 ) Wt 79.4 kg (175 lb) BMI 31.00 kg/m?? OB Status Postmenopausal Smoking Status Never BSA 1.88 m?? Assessment and Plan Marianela Ceja is a 67 y.o. female with history of MRI imaging showed degenerative changes with facet arthropathy and facet joint signal changes at L4-5. Lumbar flexion and extension films show a grade 1spondylolisthesis at L4-5 which completely reduces in recumbency on her MRI. who underwent L4-5 MisTlif on 12/30/2021. At today's visit, patient is not experiencing any pain all symptoms previous tosurgery have resolved. Patient was given exercises to do at home as tolerated. Patient states she did have a suspected seroma first two days post op that was relieved at home and was in severe pain, since the seroma is no longer present the patient has not had the severe pain again. Postoperatively, we are pleased patient's progress. Maria E NGO RN [facility] Department of Neurosurgery Cosigned by Leyla Ortega PA at 07/01/2022 8:50 PM EDT Associated attestation - Leyla Ortega PA - 07/01/2022 8:50 PM EDT The patient was seen as a nurse visit today. I discussed the case with the nurse in detail and agree with the findings and plan [...] documented as of this encounter Care Teams Gateman Relationship Specialty Start Date End Date Amber Bedolla APRN [facility] [place] [address] PCP - General 07/18/20 Tarik Cadet MD [address] [facility] [address] [place] [address] Surgeon Neurosurgery 05/25/21 documented as of this encounter
--- OUTSIDE RECORDS SUMMARY | 2024-02-08 13:14 | XMS_ITS | Encounter Summary ---
Author Organization [facility] Address [address] [place], [place] [id number] Care Team Providers Care Crystal Lapper Name Role Phone Amber Bedolla APRN Primary Care Provider [phone] Tarik Cadet MD Unavailable [phone] Encounter Details Date Type Department Care Team (Latest Contact Info) Description 09/28/2021 Travel Social History Tobacco Use Types Packs/Day Years Used Date Smoking Tobacco: Never Smokeless Tobacco: Never Alcohol Use Standard Drinks/Week Comments No 0 (1 standard drink = 0.6 oz pur e alcohol) Comments Unknown Sex and Gender Information Value Date Recorded [...] suspected to have Coronavirus/COVID-19? No / Unsure 09/27/2021 9:58 PM EDT documented as of this encounter Plan of Treatment Not on file documented as of this encounter Visit Diagnoses Not on filedocumented in this encounter Additional Health Concerns Assessment Noted Time A fall risk assessment has been complete d for the patient 09/28/2021 2:20 PM EDT documented as of this encounter Care Teams Crystal Lapper Relationship Specialty Start Date End Date Amber Bedolla APRN [address] [place] [address] PCP - General 07/18/20 Tarik Cadet MD [id number] [place] [address] Surgeon Neurosurgery 05/25/21 documented as of this encounter
--- OUTSIDE RECORDS SUMMARY | 2024-02-08 13:14 | XMS_ITS | Encounter Summary ---
Author Organization [facility] Address [address] [place], [place] [id number] Care Team Providers Care Pit Operator Name Role Phone Amber Bedolla APRN Primary Care Provider [phone] Tarik Cadet MD Unavailable [phone] Encounter Details Date Type Department Care Team (Latest Contact Info) Description 07/20/2021 Travel Social History Tobacco Use Types Packs/Day [...] suspected to have Coronavirus/COVID-19? No / Unsure 07/20/2021 9:16 AM EDT documented as of this encounter Plan of Treatment Not on file documented as of this encounter Visit Diagnoses Not on filedocumented in this encounter Additional Health Concerns Assessment Noted Time A fall risk assessment has been complete d for the patient 07/20/2021 9:21 AM EDT documented as of this encounter Care Teams Pit Operator Relationship Specialty Start Date End Date Amber Bedolla APRN [address] [place] [address] PCP - General 07/18/20 Tarik Cadet MD [id number] [place] [address] Surgeon Neurosurgery 05/25/21 documented as of this encounter
--- OUTSIDE RECORDS SUMMARY | 2024-02-08 13:14 | XMS_ITS | Encounter Summary ---
Author Organization Healthcare Address [address] [place] [address] Care Team Providers Care Hooker Machine Tender Name Role Phone Amber Bedolla Antonio PALAFOX Primary Care Provider [phone] Tarik aCdet MD Unavailable [phone] Encounter Details Date Type Department Care Team (Late st Contact Info) Description 12/18/2021 Orders Only [place] [facility] [address] [place] [address] Leyla Ortega PA [address] [place] [address] Anterolisthesis of lumbar spine (Primary Dx); DDD (degenerative disc disease), lumbar; Preoperative testing; Bleeding tendency (CMS/HCC); Encounter for pre-operative laboratory testing Social History Tobacco Use Types Packs/Day Years [...] suspected to have Coronavirus/COVID-19? No / Unsure 11/18/2021 11:13 PM EDT documented as of this encounter Plan of Treatment Not on file documented as of this encounter Results * Protime-INR (12/23/2021 12:54 PM EDT) Prothrombin Time 13.1 12.0 - 14.3 sec LAB COAGULATION METHOD 12/23/2021 2:05 PM EDT [facility] INR 1.0 0.9 - 1.1 LAB COAGULATION METHOD 12/23/2021 2:05 PM EDT [facility] Blood Venous blood specimen / Unknown Venipuncture / Unknown 12/23/2021 12:54 PM EDT 12/23/2021 12:54 PM EDT Narrative [facility]ARE [facility] - 12/23/2021 2:05 PM EDT OPTIMAL INR RANGES FOR PATIENT ON ORAL ANTICOAGULANT THERAPY Prevention of venous thromboembolism ?INR 2.0 to 3.0 In patients with heart disease: Atrial fibrillation ?INR 2.0 to 3.0 Valvular heart disease ? INR 2.0 to 3.0 Tissue heart valves ?INR 2.0 to 3.0 Mechanical prosthetic valves ? INR 2.5 to 3.5 Prevention of recurrent FL ? INR 2.5 to 3.5 us Leyla BURGER LAB BLOOD ORDERABLES Final Resu lt [facility] [address] [place] [address] * APTT (12/23/2021 12:54 PM EDT) aPTT 25 25 - 35 sec LAB COAGULATION METHOD 12/23/2021 2:05 PM EDT [facility] Blood Venous blood specimen / Unknown Venipuncture / Unknown 12/23/2021 12:54 PM EDT 12/23/2021 12:54 PM EDT us Leyla BURGER LAB BLOOD ORDERABLES Final Resu lt [facility] [address] [place] [address] * CBC and differential (12/23/2021 12:54 PM EDT) WBC Count 7.54 3.70 - 10.30 10*3/uL LAB HEMATOLOGY METHOD 12/23/2021 1:45 PM EDT [facility] RBC Count 4.14 3.90 - 5.20 10*6/uL LAB HEMATOLOGY METHOD 12/23/2021 1:45 PM EDT [facility] HGB 12.9 11.2 - 15.7 g/dL LAB HEMATOLOGY METHOD 12/23/2021 1:45 PM EDT [facility] HCT 39.2 34.0 - 45.0 % LAB HEMATOLOGY METHOD 12/23/2021 1:45 PM EDT [facility] Platelet Count 280 155 - 369 10*3/uL LAB HEMATOLOGY METHOD 12/23/2021 1:45 PM EDT [facility] MCV 95 79 - 98 fL LAB HEMATOLOGY METHOD 12/23/2021 1:45 PM EDT [facility] MCH 31.2 26.0 - 32.0 pg LAB HEMATOLOGY METHOD 12/23/2021 1:45 PM EDT [facility] MCHC 32.9 30.7 - 35.5 g/dL LAB HEMATOLOGY METHOD 12/23/2021 1:45 PM EDT [facility] RDW 12.4 11.5 - 14.5 % LAB HEMATOLOGY METHOD 12/23/2021 1:45 PM EDT [facility] MPV 10.3 8.8 - 12.5 fL LAB HEMATOLOGY METHOD 12/23/2021 1:45 PM EDT [facility] nRBC 0.0 <=0.0 per 100 WBCs LAB HEMATOLOGY METHOD 12/23/2021 1:45 PM EDT [facility] Differential Type Automated LAB HEMATOLOGY METHOD 12/23/2021 1:45 PM EDT [facility] Neutrophils % 51.0 % LAB HEMATOLOGY METHOD 12/23/2021 1:45 PM EDT [facility] Lymphocytes % 35.0 % LAB HEMATOLOGY METHOD 12/23/2021 1:45 PM EDT [facility] Monocytes % 11.0 % LAB HEMATOLOGY METHOD 12/23/2021 1:45 PM EDT [facility] Eosinophils % 2.0 % LAB HEMATOLOGY METHOD 12/23/2021 1:45 PM EDT [facility] Basophils % 1.0 % LAB HEMATOLOGY METHOD 12/23/2021 1:45 PM EDT [facility] Immature Granulocytes % 0.0 % LAB HEMATOLOGY METHOD 12/23/2021 1:45 PM EDT [facility] Neutrophils Absolute 3.81 1.60 - 6.10 10*3/uL LAB HEMATOLOGY METHOD 12/23/2021 1:45 PM EDT [facility] Lymphocytes Absolute 2.67 1.20 - 3.90 10*3/uL LAB HEMATOLOGY METHOD 12/23/2021 1:45 PM EDT [facility] Monocytes Absolute 0.81 0.30 - 0.90 10*3/uL LAB HEMATOLOGY METHOD 12/23/2021 1:45 PM EDT [facility] Eosinophils Absolute 0.17 0.00 - 0.50 10*3/uL LAB HEMATOLOGY METHOD 12/23/2021 1:45 PM EDT [facility] Basophils Absolute 0.05 0.00 - 0.10 10*3/uL LAB HEMATOLOGY METHOD 12/23/2021 1:45 PM EDT [facility] Immature Granulocytes Absolute 0.03 0.00 - 0.06 10*3/uL LAB HEMATOLOGY METHOD 12/23/2021 1:45 PM EDT [facility] Blood Venous blood specimen / Unknown Venipuncture / Unknown 12/23/2021 12:54 PM EDT 12/23/2021 12:54 PM EDT Narrative [facility] - 12/23/2021 1:45 PM EDT Therapeutic decision making should be based on absolute values, rather than percentages. us Leyla BURGER LAB BLOOD ORDERABLES Final Resu lt [facility] [address] [place] [address] * (ABNORMAL) Basic metabolic panel (12/23/2021 12:54 PM EDT) [facility] Glucose, Plasma 95 74 - 99 mg/dL 12/23/2021 2:25 PM EDT [facility] BUN, Plasma 25(H) 8 - 23 mg/dL 12/23/2021 2:25 PM EDT [facility] Creatinine, Plasma 0.83 0.60 - 1.10 mg/dL 12/23/2021 2:25 PM EDT [facility] BUN/Creatinine Ratio 30 12/23/2021 2:25 PM EDT [facility] Sodium, Plasma 140 136 - 145 mmol/L 12/23/2021 2:25 PM EDT [facility] Potassium, Plasma 4.6 3.7 - 4.8 mmol/L 12/23/2021 2:25 PM EDT [facility] Comment:Reference range for Serum potassium is 0.2 to 0.5 mmol/L higher than Plasma range. Chloride, Plasma 106 97 - 107 mmol/L 12/23/2021 2:25 PM EDT [facility] CO2, Plasma 23 22 - 29 mmol/L 12/23/2021 2:25 PM EDT [facility] Anion Gap 11 6 - 16 mmol/L 12/23/2021 2:25 PM EDT [facility] Total Calcium, Plasma 9.9 8.9 - 10.2 mg/dL 12/23/2021 2:25 PM EDT [facility] eGFRcr 78.3 mL/min/1.7 3m*2 12/23/2021 2:25 PM EDT [facility] Comment: Reported eGFRcr in mL/min/1.73m2 is based the CKD-EPI 2021 equation that does not use a race coefficient. Effective 09/30/21 our laboratory changed the eGFR calculation to the CKD-EPI 2021 equation from the previously reported eGFR, based on the MDRD equation. ??For comparisons between the two equations, please see laboratory website: ??[email or web address] Blood Venous blood specimen / Unknown Venipuncture / Unknown 12/23/2021 12:54 PM EDT 12/23/2021 12:54 PM EDT us Leyla BURGER LAB BLOOD ORDERABLES Final Resu lt [facility] [address] [place] [address] * (ABNORMAL) Urinalysis with reflex microscopic (12/23/2021 12:46 PM EDT) Color, Urine Yellow LAB URINALYSIS - AUTOMATED METHOD 12/23/2021 2:58 PM EDT [facility] Clarity, Urine Clear LAB URINALYSIS - AUTOMATED METHOD 12/23/2021 2:58 PM EDT [facility] Spec [place], Urine 1.026 <=1.005 to >=1.030 LAB URINALYSIS - AUTOMATED METHOD 12/23/2021 2:58 PM EDT [facility] pH, Urine 5.5 4.5 to 8 LAB URINALYSIS - AUTOMATED METHOD 12/23/2021 2:58 PM EDT [facility] Protein, Urine Trace(A) Negative mg/dL LAB URINALYSIS - AUTOMATED METHOD 12/23/2021 2:58 PM EDT [facility] Glucose, Urine Negative Negative mg/dL LAB URINALYSIS - AUTOMATED METHOD 12/23/2021 2:58 PM EDT [facility] Ketones, Urine Trace(A) Negative mg/dL LAB URINALYSIS - AUTOMATED METHOD 12/23/2021 2:58 PM EDT [facility] Blood, Urine Negative Negative LAB URINALYSIS - AUTOMATED METHOD 12/23/2021 2:58 PM EDT [facility] Bilirubin, Urine Negative Negative LAB URINALYSIS - AUTOMATED METHOD 12/23/2021 2:58 PM EDT [facility] Urobilinogen, Urine 0.2 0.2 to 1.0 mg/dL LAB URINALYSIS - AUTOMATED METHOD 12/23/2021 2:58 PM EDT [facility] Leukocytes, Urine Small(A) Negative LAB URINALYSIS - AUTOMATED METHOD 12/23/2021 2:58 PM EDT [facility] Nitrite, Urine Negative Negative LAB URINALYSIS - AUTOMATED METHOD 12/23/2021 2:58 PM EDT [facility] RBC, Urine <1 0 to 3 /HPF LAB URINALYSIS - AUTOMATED METHOD 12/23/2021 2:58 PM EDT [facility] Comment:This result was prev iously suppressed from the chart. WBC, Urine 0 - 5 0 to 5 /HPF LAB URINALYSIS - AUTOMATED METHOD 12/23/2021 2:58 PM EDT [facility] Comment:This result was prev iously suppressed from the chart. Squamous Epithelial Cells 0 - 5 0 to 5 /HPF LAB URINALYSIS - AUTOMATED METHOD 12/23/2021 2:58 PM EDT [facility] Comment:This result was prev iously suppressed from the chart. Hyaline Casts 0 - 8 0 to 8 /LPF LAB URINALYSIS - AUTOMATED METHOD 12/23/2021 2:58 PM EDT [facility] Comment:This result was prev iously suppressed from the chart. Bacteria, Urine Negative Negative LAB URINALYSIS - AUTOMATED METHOD 12/23/2021 2:58 PM EDT [facility] Comment:This result was prev iously suppressed from the chart. Renal Tubular Cells <1-2 0 /HPF 12/23/2021 2:58 PM EDT [facility] Comment:This result was prev iously suppressed from the chart. Calcium Oxalate Crystals Present Absent 12/23/2021 2:58 PM EDT [facility] Comment:This result was prev iously suppressed from the chart. Urine Urine specimen obtained by clean catch procedure / Unknown Non-blood Collection / Unknown 12/23/2021 12:46 PM EDT 12/23/2021 12:47 PM EDT Narrative [facility] - 12/23/2021 2:58 PM EDT Performed by manual method us Leyla BURGER LAB URINE ORDERABLES Final Resu lt [facility] [address] [place] [address] * ECG Adult (12/23/2021 12:34 PM EDT) EKG DIAGNOSIS CLASS Normal MUSE ECG Ventricular Rate 73 BPM MUSE ECG Atrial Rate 73 BPM MUSE ECG NH Interval 148 ms MUSE ECG QRSD Interval 72 ms MUSE ECG QT Interval 342 ms MUSE ECG QTC Interval 376 ms MUSE ECG P [place] 49 degrees MUSE ECG R [place] 59 degrees MUSE ECG T Wave [place] 55 degrees MUSE ECG Diagnosis Normal sinus rhythm MUSE ECG Diagnosis Normal ECG MUSE ECG Diagnosis Confirmed by Jayesh Spencer ([id number]) on 12/23/2021 1:53:53 PM MUSE ECG 12/23/2021 12:3 4 PM EDT 12/23/2021 1:53 PM EDT us Leyla BURGER ECG ORDERABLES Final Result MUSE ECG documented in this encounter Visit Diagnoses Diagnosis Anterolisthesis of lumbar spine- Primary DDD (degenerative disc disease), lumbar Degeneration of lumbar or lumbosacral intervertebral disc Preoperative testing Unspecified pre-operative examination Bleeding tendency (CMS/HCC) Unspecified hemorrhagic conditions Encounter for pre-operative laboratory testing documented in this encounter Additional Health Concerns Assessment Noted Time A fall risk assessment has been complete d for the patient 11/19/2021 11:16 AM EDT documented as of this encounter Care Teams Hooker Machine Tender Relationship Specialty Start Date End Date Amber Bedolla APRN [address] [place] [address] PCP - General 07/18/20 Tarik Cadet MD [id number] [place] [address] Surgeon Neurosurgery 05/25/21 documented as of this encounter
--- OUTSIDE RECORDS SUMMARY | 2024-02-08 13:14 | XMS_ITS | Encounter Summary ---
Author Organization [facility] Address [address] [place] [address] Care Team Providers Care Residence Supervisor Name Role Phone ChiomaAmber barrios Antonio PALAFOX Primary Care Provider [phone] Tarik Cadet MD Unavailable [phone] Encounter Details Date Type Department Care Team (Latest Contact Info) Description 01/12/2022 Travel Social History Tobacco Use Types Packs/Day [...] drink first t mony in the morning (EYE-TINTER PHOTOGRAPH) to steady your nerves or to get [...] documented as of this encounter Care Teams Residence Supervisor Relationship Specialty Start Date End Date Amber Bedolla APRN [facility] [place] [address] PCP - General 07/18/20 Tarik Cadet MD [address] [address] Surgeon Neurosurgery 05/25/21 documented as of this encounter
--- OUTSIDE RECORDS SUMMARY | 2024-02-08 13:14 | XMS_ITS | Encounter Summary ---
Author Organization [facility] Address [address] [place] [address] Care Team Providers Care Treating Engineer Name Role Phone ChiomaAmber barrios Antonio PALAFOX Primary Care Provider [phone] Tarik Cadet MD Unavailable [phone] Encounter Details Date Type Department Care Team (Latest Contact Info) Description 02/21/2022 Travel Social History Tobacco Use Types Packs/Day [...] drink first t mony in the morning (EYE-CHAR FILTER TANK TENDER) to steady your nerves or to get [...] suspected to have Coronavirus/COVID-19? No / Unsure 02/15/2022 10:17 PM EST documented as of this encounter [...] End Date Amber Bedolla APRN [facility] [place] [address] PCP - General 07/18/20 Tarik Cadet MD [address] [address] Surgeon Neurosurgery 05/25/21 documented as of this encounter
--- OUTSIDE RECORDS SUMMARY | 2024-02-08 13:14 | XMS_ITS | Encounter Summary ---
Author Organization [facility] Address [address] [place] [address] Care Team Providers Care Customer Service Security Officer Name Role Phone Amber Bedolla VIVIENNE Primary Care Provider [phone] Tarik Cadet MD Unavailable Reason for Visit * Auth/Cert (Routine) Specialty Diagnoses / Procedures Referred By Contac t Referred To Contact Diagnoses Anterolisthesis of lumbar spine Anterolisthesis of lumbar spine [M43.16] Procedures NC ARTHRODESIS POSTERIOR INTERBODY LUMBAR NC INSJ BIOMCHN DEV INTERVERTEBRAL DSC SPC W/ARTHRD NC POSTERIOR NON-SEGMENTAL INSTRUMENTATION NC ALLOGRAFT FOR SPINE SURGERY ONLY MORSELIZED NC AUTOGRAFT SPINE SURGERY LOCAL FROM SAME INCISION NC STEREOTACTIC COMP ASSIST PROC,SPINAL L4-5 MIS TLIF ADD ON SPINE NAVIGATION Tarik Cadet MD [address] [facility] [address] [place] [address] Phone: tel: fax: [facility] [address] [place] [address] Phone: tel: Referral ID Status Reason Start Date Expiration Date Visits Re quested Visits Authorized [id number] 1 1 Encounter Details Date Type Department Care Team (Late st Contact Info) Description 12/30/2021 8:03 AM EDT Anesthesia Event [facility] [address] [place] [address] Mariana Augustine MD [address] [place] [id number] Willow Monsivais DO [address] [place] [address] Anesthesia Record Procedure Summary Procedure Name Responsible Anesthesiologist Anesthesia Start Time Anesthesia Stop Time L4-5 MIS TLIF (Spine Lumbar) Mariana Augustine MD 12/30/21 0803 12/30/21 1217 Events Date Time Event Comment 12/30/2021 0747 0803 In Room 0803 An Start 0807 An Start Data 0824 An Induction The patient was reevaluated immediately before moderate or deep sedation use and before anesthesia induction. 0827 An Intubation 0833 Anesthesia Ready 0854 Piotr Flipping prone 0920 Proc Start 1121 Piotr Final motor gabriella ck 1143 Proc Fin 1202 An Extubation 1204 an stop data 1206 Out of Room 1217 Handoff to Receiving I compl eted my handoff to the receiving clinician during which we: 1. Identified the patient 2. Identified the responsible provider 3. Reviewed the pertinent medical history 4. Discussed the surgical course 5. Reviewed intra-op anesthesia management and issues during anesthesia 6. Set expectations for post-procedure period 7. Allowed opportunity for questions and acknowledgement of understanding. 1217 An Stop Meds Name Total ondansetron (Zofran) injection 2 mg/mL 4 mg dexamethasone (Decadron) injection 4 mg/ mL 4 mg ceFAZolin (Ancef) vial 1 g 2 g fentaNYL (Sublimaze) injection 50 mcg/mL 100 mcg propofol (Diprivan) injection 10 mg/mL 2 00 mg lidocaine PF (Xylocaine-MPF) 2% 100 mg rocuronium (ZeMuron) injection 10 mg/mL 10 mg succinylcholine (Anectine) injection 20 mg/mL 200 mg HYDROmorphone PF (Dilaudid) injection 1 mg/mL 0.25 mg phenylephrine (Johnathan-Synephrine) prefilled syringe 1 mg/10 mL 100 mcg remifentanil 2 MG 2.9 mg ketamine 10 MG/ML 50 mg glycopyrrolate (Robinul) injection 0.2 m g/mL 0.4 mcg phenylephrine infusion 100 mcg/mL 2.92 m g propofol (Diprivan) infusion 10 mg/mL 2, 216.66 mg lactated Ringer's infusion 1,500 mL sodium chloride 0.9 % infusion 0 mL * Agents Name O2 N2O Air Sevoflurane Isoflurane Desflurane Inspired Desflurane Inspired Isoflurane Inspired Sevoflurane N2O Inspired N2O * Blood No blood administrations on file. Lines, Drains, and Airways Type Details Placement Removal Wound 12/30/21; N; Yes; Incision; Back; Lower 12/30/21 0000 by Carey Chacon RN Peripheral IV Placement Date: 12/06 08/26; Placement Time: (plaved in OR); Catheter Size: 18 G; Orientation: Posterior, Right; Location: Hand; Removal Date: 01/01/22; Removal Time: 1020 12/30/21 0000 by Henrry Mohan RN 01/01/22 1020 by Leyla Flores RN Peripheral IV Placement Date: 12/06 08/26; Placement Time: 0701; Catheter Size: 18 G; Orientation: Posterior, Right; Location: Hand; Site Prep: Chlorhexidine ; Local Anesth: Injectable; Inserted by: Letha Warren; Insertion Attempts: 1; Patient Tolerance: Tolerated well; Removal Date: 12/30/21; Removal Time: 1320; Removal Reason: Removed by patient 12/30/21 0701 by Francesca Warren RN 12/30/21 1320 by Chente Natarajan RN ETT Placement Date: 12/06 08/26; Placement Time: 0827 (created via procedure documentation); Mask Ventilation: 1; Technique: Video laryngoscopy; Type: ETT - single; Single Lumen Tube Size: 7 mm; Cuffed: Yes; Laryngoscope: Matthias; Blade Size: 3; Location: Oral; Grade View: Grade I; Insertion Attempts: 1; Placement Verification: Auscultation, Capnometry; Placed by: Resident ; Removal Date: 12/30/21; Removal Time: 1202 12/30/21 0827 by Willow Monsivais DO 12/30/21 1202 by Mariana Augustine MD Urethral Catheter Placement Date: 12/06 08/26; Placement Time: 0840; Inserted by: SN Sherri; Type: Temperature probe; Size: 16 Fr.; Balloon Size: 10 mL; Urine Returned: Yes; Removal Date: 12/31/21; Removal Time: 1000; Removal Reason: Per order 12/30/21 0840 by Carey Chacon RN 12/31/21 1000 by Suiters, Ozzie Joel RN Peripheral IV Placement Date: 12/06 08/26; Placement Time: 920 (created via procedure documentation); Catheter Size: 16 G; Orientation: Left; Location: Hand; Local Anesth: None; Technique: Anatomical landmarks; Insertion Attempts: 1; Removal Date: 12/30/21; Removal Time: 1329; Removal Reason: Removed by patient 12/30/21 09 by Willow Monsivais, DO 12/30/21 1330 by Henrry Mohan RN documented in this encounter Social History Tobacco [...] drink first t mony in the 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 No / Unsure 12/30/2021 6:45 AM EDT documented as of this encounter Miscellaneous Notes * Addendum Note - Mariana Augustine MD - 12/31/2021 8:30 AM EDT Addendum created 12/31/21829 by Mariana Augustine MD Intraprocedure Meds edited * Anesthesia Postprocedure Evaluation - Mariana Augustine MD - 12/30/2021 12:17 PM EDT Patient: Marianela Ceja Anesthesia Type: No value filed. Vitals Value Taken Time BP 117/68 12/30/21 1217 Temp 35.8 12/30/21 1217 Pulse 87 12/30/21 1217 Resp 12 12/30/21 1217 SpO2 100 12/30/21 1217 Anesthesia Post Evaluation Patient location during evaluation: PACU Patient participation: complete - patient cannot participate Level of consciousness: sedated Pain management: adequate (pain score 0-3) Airway patency: natural airway Cardiovascular status: acceptable Respiratory status: acceptable, oral airway and face mask Hydration status: acceptable Comments: Patient transported to PACU on 6L face mask, VSS upon arrival. Handoff to bedside RN No notable events documented. * Anesthesia Procedure Notes - Willow Monsivais DO - 12/30/2021 9:20 AM EDT Associated Order(s): Peripheral IV Peripheral IV Placement Needle size: 16 G Location: hand Local anesthetic: none Site prep: alcohol Technique: anatomical landmarks Attempts: 1 Cosigned by Mariana Augustine MD at 12/30/2021 10:07 AM EDT Associated attestation - Mariana Augustine MD - 12/30/2021 10:07 AM EDT I was present during all critical and caicedo portions of the procedure(s) and immediately available tofurnish services the entire duration. See resident note for details. * Anesthesia Procedure Notes - Willow Monsivais DO - 12/30/2021 9:19 AM EDT Associated Order(s): Airway Airway Date/Time: 12/30/2021 8:27 AM Urgency: elective Airway not difficult General Information and Staff Patient location during procedure: OR Anesthesiologist: Mariana Augustine MD Resident: Willow Monsivais DO Performed: Resident Indications and Patient Condition Indications for airway management: anesthesia Spontaneous Ventilation: absent Preoxygenated: yes Patient position: sniffing Mask difficulty assessment: 1 - vent by mask Final Airway Details Final airway type: endotracheal airway Successful airway: ETT Cuffed: yes Successful intubation technique: video laryngoscopy Facilitating devices/methods: cricoid pressure and intubating stylet Endotracheal tube insertion site: oral Blade: Matthias Blade size: #3 ETT size (mm): 7.0 Cormack-Lehane Classification: grade I - full view of glottis Placement verified by: chest auscultation and capnometry Measured from: teeth ETT to teeth (cm): 21 Number of attempts at approach: 1 Cosigned by Mariana Augustine MD at 12/30/2021 10:07 AM EDT Associated attestation - Mariana Augustine MD - 12/30/2021 10:07 AM EDT I was present during all critical and caicedo portions of the procedure(s) and immediately available tofurnish services the entire duration. See resident note for details. * Anesthesia Preprocedure Evaluation - Mariana Augustine MD - 12/30/2021 7:43 AM EDT Patient: Marianela Ceja Procedure Information Date/Time: 12/30/2115 Procedures: L4-5 MIS TLIF (Spine Lumbar) ADD ON SPINE NAVIGATION Location: [facility] Surgeons: Tarik Cadet MD Relevant Problems Anesthesia (+) Motion sickness GI (+) GERD (gastroesophageal reflux disease) Musculoskeletal (+) Herniation of lumbar intervertebral disc Other (+) Rheumatoid arthritis (CMS/HCC) Anesthesia Evaluation Clinical information reviewed: Med Hx Tobacco Allergies Surg Hx Fam Hx Soc Hx OB Status NPO Status Date of Last Liquid: 12/30/21 Time of Last Liquid: (sips of water with meds ) Date of Last Solid: 12/29/21 Time of Last Solid: 1830 Time of Last Void: 0600 Physical Exam Airway Mallampati: III Mouth opening: normal TM distance: <3 FB Neck ROM: limited Cardiovascular - normal exam Dental - normal exam Pulmonary - normal exam Neurological Oriented: normal to time, normal to place and normal to person and oriented to person, place and time Skin - normal exam Musculoskeletal Extremities Anesthesia Plan ASA 3 Anesthesia technique(s) discussed with the patient/family: General Anesthesia plan agreed upon was: general Post operative pain planned: discuss with surgical team Induction planned: intravenous Airway management planned: general endotracheal and glide scope Anesthetic plan and risks discussed with patient. Use of blood products discussed with patient who consented to blood products. Plan discussed with resident. Additional Equipment Requests documented in this encounter Plan of Treatment Not on file documented as of this encounter Procedures Procedure Name Priority Date/Time Associated Diagnosis Comments ANESTHESIA PERIPHERAL IV PLACEMENT Routine 12/30/2021 9:20 AM EDT PB ANESTHESIA PLACEHOLDER Routine 12/30/2021 8:27 AM EDT NC AN ELECTIVE ENDOTRACHEAL AIRWAY Routine 12/30/2021 8:27 AM EDT documented in this encounter Results * Peripheral IV (12/30/2021 9:20 AM EDT) Narrative Mariana Augustine MD - 12/30/2021 9:20 AM EDT Willow Monsivais DO ? 12/30/2021 ??9:21 AM Peripheral IV Placement Needle size: 16 G Location: hand Local anesthetic: none Site prep: alcohol Technique: anatomical landmarks Attempts: 1 Mariana Augustine MD ANESTHESIA ORDERABLES Final R esult * NC AN ELECTIVE ENDOTRACHEAL AIRWAY, PB ANESTHESIA PLACEHOLDER (12/30/2021 8:27 AM EDT) Mariana Lowery MD - 12/30/2021 8:27 AM EDT Willow Monsivais, DO ? 12/30/2021 ??9:20 AM Airway Date/Time: 12/30/2021 8:27 AM Urgency: elective Airway not difficult General Information and Staff Patient location during procedure: OR Anesthesiologist: Mariana Augustine MD Resident: Willow Monsivais DO Performed: Resident Indications and Patient Condition Indications for airway management: anesthesia Spontaneous Ventilation: absent Preoxygenated: yes Patient position: sniffing Mask difficulty assessment: 1 - vent by mask Final Airway Details Final airway type: endotracheal airway Successful airway: ETT Cuffed: yes Successful intubation technique: video laryngoscopy Facilitating devices/methods: cricoid pressure and intubating stylet Endotracheal tube insertion site: oral Blade: Matthias Blade size: #3 ETT size (mm): 7.0 Cormack-Lehane Classification: grade I - full view of glottis Placement verified by: chest auscultation and capnometry Measured from: teeth ETT to teeth (cm): 21 Number of attempts at approach: 1 Result [facility] Mariana Augustine MD ANESTHESIA ORDERABLES Final R esult documented in this encounter Visit Diagnoses Not on filedocumented in this encounter Administered Medications Inactive Administered Medications - up to 3 most recent administrations Medication Order MAR Action Action Date Dose Rate Site ceFAZolin (Ancef) injection Intravenous, As needed, Starting on Tue12/30/21 at 0818, Until Tue12/30/21 at 1217, Routine, Anesthesia Intraprocedure Given 12/30/2021 8:31 AM EDT 2 g dexamethasone (Decadron) injection Intravenous, As needed, Starting on Tue12/30/21 at 0830, Until Tue12/30/21 at 1217, Routine, Anesthesia Intraprocedure Given 12/30/2021 8:30 AM EDT 4 mg fentaNYL (Sublimaze) injection Intravenous, As needed, Starting on Tue12/30/21 at 0824, Until Tue12/30/21 at 1217, Routine, Anesthesia Intraprocedure Given 12/30/2021 8:24 AM EDT 100 mcg glycopyrrolate (Robinul) injection Intravenous, As needed, Starting on Tue12/30/21 at 0842, Until Tue12/30/21 at 1217, Routine, Anesthesia Intraprocedure Given 12/30/2021 11:26 AM EDT 0.2 mcg Given 12/30/2021 8:42 AM EDT 0.2 mcg HYDROmorphone PF (Dilaudid) injection Intravenous, As needed, Starting on Tue12/30/21 at 1126, Until Tue12/30/21 at 1217, Routine, Anesthesia Intraprocedure Given 12/30/2021 11:26 AM EDT 0. 25 mg ketamine (Ketalar) injection Intravenous, As needed, Starting on Tue12/30/21 at 0824, Until Tue12/30/21 at 1217, Routine, Anesthesia Intraprocedure Given 12/30/2021 10:34 AM EDT 10 mg Given 12/30/2021 9:38 AM EDT 20 mg Given 12/30/2021 8:24 AM EDT 20 mg lactated Ringer's infusion 100 mL/hr, Intravenous, Once, 1 dose, On Tue12/30/21 at 0800, Routine New Bag 12/30/2021 7:40 AM EDT lidocaine PF (Xylocaine) 2 % injection Intravenous, As needed, Starting on Tue12/30/21 at 0824, Until Tue12/30/21 at 1217, Routine, Anesthesia Intraprocedure Given 12/30/2021 8:24 AM EDT 100 mg ondansetron (Zofran) injection Intravenous, As needed, Starting on Tue12/30/21 at 1139, Until Tue12/30/21 at 1217, Routine, Anesthesia Intraprocedure Given 12/30/2021 11:39 AM EDT 4 mg phenylephrine 25 mg in NS 250 mL (0.1 mg/mL) infusion (compounding pharmacy premix) Intravenous, Continuous PRN, Starting on Tue12/30/21 at 0906, Until Tue12/30/21 at 1217, Routine, Anesthesia Intraprocedure Rate/Dose Change 12/30/2021 10:19 AM EDT 0.15 mcg/kg/min 7.344 mL/hr Rate/Dose Change 12/30/2021 10:14 AM EDT 0.25 mcg/kg/min 1 2.24 mL/hr Restarted 12/30/2021 9:59 AM EDT 0.3 mcg/kg/min 14.688 mL /hr phenylephrine in NS (Johnathan-Synephrine) 100 mcg/mL prefilled syringe Intravenous, As needed, Starting on Tue12/30/21 at 0849, Until Tue12/30/21 at 1217, Routine, Anesthesia Intraprocedure Given 12/30/2021 8:49 AM EDT 100 mcg propofol (Diprivan) infusion 10 mg/mL Intravenous, Continuous PRN, Starting on Tue12/30/21 at 0835, Until Tue12/30/21 at 1217, Routine Rate/Dose Change 12/30/2021 10:52 AM EDT 145 mcg/kg/min 70.992 mL/hr Rate/Dose Change 12/30/2021 10:03 AM EDT 155 mcg/kg/min 75 .888 mL/hr Rate/Dose Change 12/30/2021 9:49 AM EDT 165 mcg/kg/min 80. 784 mL/hr propofol (Diprivan) injection Intravenous, As needed, Starting on Tue12/30/21 at 0824, Until Tue12/30/21 at 1217, Routine, Anesthesia Intraprocedure Given 12/30/2021 8:24 AM EDT 200 mg remifentanil (Ultiva) injection Intravenous, Continuous PRN, Starting on Tue12/30/21 at 0835, Until Tue12/30/21 at 1217, Routine, Anesthesia Intraprocedure Rate/Dose Change 12/30/2021 11:26 AM EDT 0.1 mcg/kg/min 0.49 mL/hr New Bag 12/30/2021 8:35 AM EDT 0.2 mcg/kg/min 0.979 mL/ hr rocuronium (ZeMuron) injection Intravenous, As needed, Starting on Tue12/30/21 at 0824, Until Tue12/30/21 at 1217, Routine, Anesthesia Intraprocedure Given 12/30/2021 8:24 AM EDT 10 mg sodium chloride 0.9% infusion Intravenous, Continuous PRN, Starting on Tue12/30/21 at 0800, Until Tue12/30/21 at 1217, Routine Rate/Dose Change 12/30/2021 11:27 AM EDT 50 mL/hr Rate/Dose Change 12/30/2021 10:26 AM EDT 75 mL/ hr New Bag 12/30/2021 8:35 AM EDT 100 mL/hr succinylcholine (Anectine) injection Intravenous, As needed, Starting on Tue12/30/21 at 0825, Until Tue12/30/21 at 1217, Routine, Anesthesia Intraprocedure Given 12/30/2021 8:26 AM EDT 100 mg Given 12/30/2021 8:25 AM EDT 100 mg documented in this encounter Additional Health Concerns Assessment Noted Time A fall risk assessment has been complete d for the patient 12/23/2021 11:53 AM EDT documented as of this encounter Care Teams Customer Service Security Officer Relationship Specialty Start Date End Date Amber Bedolla APRN Replaced by [facility] [address] [place] [address] PCP - General 07/18/20 Tarik Cadet MD [id number] [place] [address] Surgeon Neurosurgery 05/25/21 documented as of this encounter
--- OUTSIDE RECORDS SUMMARY | 2024-02-08 13:14 | XMS_ITS | Encounter Summary ---
Author Organization [facility] Address [address] [place] [address] Care Team Providers Care Network Contractor Name Role Phone Amber Bedolla VIVIENNE Primary Care Provider [phone] Tarik Cadet MD Unavailable [phone] Encounter Details Date Type Department Care Team (Late st Contact Info) Description 09/08/2021 2:30 PM EDT Office Visit [facility] Interventional Pain Medicine [address] [facility] [place] [address] Ravi Huff MD [address] [facility] [address] [place] [address] Spinal stenosis, lumbar region with neurogenic claudication (Primary Dx) Social History Tobacco Use Types [...] suspected to have Coronavirus/COVID-19? No / Unsure 09/08/2021 11:33 AM EDT documented as of this encounter Miscellaneous Notes * Addendum Note - Ravi Huff MD - 09/08/2021 2:30 PM EDTAddended by: RAVI HUFF on: 09/08/2021 02:32 PM Modules accepted: Level of Service * Progress Notes - Ravi Huff MD - 09/08/2021 2:30 PM EDT Interventional Pain Medicine Follow-up Note This visit was done via HIPPA compliant telehealth Patient Verification Patient identity has been confirmed using name and date of ? Yes Authorizations and Agreements/Telemedicine Consent sent and consent confirmed? Yes Patient Location: Patient's Home Patient confirms they are physically located in [place]? Yes If the patient is not physically located in [place], the provider has confirmed with Legal thatthe provider is authorized to provide services in patient's stated location? N/A Provider Location: [facility] Facility Audio and video or audio only? Audio and video Interval Treatment: failed MBB and failed LESI. Has a follow-up with Helio Subjective: Referring Physician: No referring provider defined for this encounter. Chief Complaint: No chief complaint on file. Record Review: I personally reviewed Neurosurgery records from 05/25/2021 History of Present Illness: Nory Ceja is a 66 y.o. female presents for No chief complaint on file. Back Pain started when she was 17 and had intermittent back pain. In 2018 had bilateral TKR- the PTfor this seemed to have exacerbated her low back. In 2019 had Left total hip replacement following PT. Back pain then progressively worsening since doing PT in 2019. F/u from left L4/5 LESI reporting no improvement with back pain and 20% improvement with LLE pain. LLE pain continues to be weak (has been weak since hip replacement) Severity: 5/10 on the NRPS Descriptors: back, and left medial thigh, dull, throbbing Aggravating Factors: sitting to standing position, activity Relieving Factors: supine Associated Symptoms: LLE weakness, no changes with bowel or bladder habits, tingling occasionally in the left thigh Current Pain Medications ibuprofen 600 MG tablet lamoTRIgine (LaMICtal) 150 MG tablet every 12 (twelve) hours. Previous Medication: Diclofenac, Naprosyn, Celebrex, Mobic Previous Conservation Treatment: conservative care > 6 weeks within the last 6 months heat ice inability to complete physical therapy due to increased pain medication trials modified activities Previous Interventions/Consults: Neurosurgery L4/5 reporting no improvement with back pain and 20% improvement with LLE pain. Other Medical History reports that she has never smoked. She has never used smokeless tobacco. Diabetes: none A1C: na Anticoagulation: none Review of Systems: CONSTITUTIONAL: denies fevers, chills HEENT: denies swallowing difficulties, sore throat CARDIOVASCULAR: denies chest pain, palpitations, syncope RESPIRATORY: denies shortness of breath, cough, wheezing GI: as per HPI : as per HPI SKIN: denies rash, skin changes MSK: Per HPI NEURO: Per HPI PSYCH: depression is managed General Physical Exam: Constitutional Oriented to person, place, and time. Appears well-developed and well-nourished Head Normocephalic and atraumatic. Neck Neck supple Cardiovascular No cyanosis, no edema Pulmonary/Chest Effort normal, no shortness of breath noted Neurological Alert and oriented to person, place, and time Skin Skin is warm and dry Psychiatric Normal mood and affect, behavior and judgment Neurologic & Musculoskeletal Exam Lumbar Region Exam Right (+/-) Left (+/-) Lumbar Musculature Tender w/ palpation - + Lumbar Facet Pain w/ extension - + Sacroiliac Joint Pasquale's Finger (PSIS) - - Sensation Right Left L2: Proximal Anterior Thigh Normal Normal L3: Mid Anterior Thigh Normal Decreased L4: Medial leg/foot, great toe (Saphenous n.) Normal Normal L5: Dorsum of mid foot Normal Normal S1: Lateral leg/foot, little toe, back of leg (Sural n.) Normal Normal Motor Strength Right Left L2: Hip flexion (iliopsoas) 5/5 4/5 L3: Knee extension (quad) 5/5 5/5 L4: Ankle DF (TA) 5/5 5/5 L5: Great Toe DF (EHL) / 55 S1: Ankle PF, Foot Eversion (Peroneal longus/brevis) / 5/5 S2: Great toe flexion (FHL), Knee Flexion 5/5 5/5 Reflexes Right Left L4: Patellar 2/4 2/4 S1: Achilles 2/4 2/4 Clonus None None Imaging: TECHNIQUE: XR SCOLIOSIS ENTIRE SPINE 2 OR 3 VIEWS, XR LUMBAR SPINE 2 OR 3 VIEWS ?? COMPARISON: None. ?? FINDINGS: Scoliosis/lumbar spine: 12 rib-bearing thoracic vertebral bodies and 5 lumbar type vertebral bodiesare noted. Minimal levocurvature of the superior thoracic spine. Degenerative changes of the cervical spine with grade 1 anterolisthesis of C2 on C3, C3 on C4, C4 on C5 with disc space narrowing and osteophyte formation at C5-C6 and C6-C7. Multilevel disc space narrowing and osteophyte formation inthe thoracic spine. Disc space narrowing and osteophyte formation at L5-S1 and L4-L5. Grade 1 anterolisthesis of L4 on L5. Mild retrolisthesis of L3 on L4. No abnormal translation noted between flexion and extension views of lumbar spine. Disc space narrowing and osteophyte formation at L1-L2. ?? IMPRESSION: Scoliosis/lumbar spine: Degenerative changes of the cervical, thoracic, and lumbar spine as described above. No abnormal translation noted between flexion and extension views of the lumbar spine. ?? *I have personally reviewed the images of the above study and made my own interpretation, noting: L4/5 moderate stenosis with grade 1 spondylosis Assessment & Plan: Nory Ceja is a 66 y.o. female With longstanding back and left leg pain. #Radiculitis Chronic Worsening # Stenosis Chronic Worsening -failed PT and medication -s/p left L4/5 LESI reporting no improvement with back pain and 20% improvement with LLE pain. -Could consider Vertiflex or MILD #Lumbar spondylosis-chronic worsening - persistent back pain (worse on left) -failed PT -has +facet loading -Failed LMBB L4-SA on left (#1) *Total visit time 33min, greater than 50% of which was spent in counseling and coordination of care documented in this encounter Plan of Treatment Not on file documented as of this encounter Visit Diagnoses Diagnosis Spinal stenosis, lumbar region with neurogenic claudication- Primary documented in this encounter Additional Health Concerns Assessment Noted Time A fall risk assessment has been complete d for the patient 07/20/2021 9:21 AM EDT documented as of this encounter Care Teams Network Contractor Relationship Specialty Start Date End Date Amber Bedolla APRN [address] [address] PCP - General 07/18/20 Tarik Cadet MD [address] [address] Surgeon Neurosurgery 05/25/21 documented as of this encounter
--- OUTSIDE RECORDS SUMMARY | 2024-02-08 13:14 | XMS_ITS | Encounter Summary ---
Author Organization [facility] Address [address] [place] [address] Care Team Providers Care Business Solutions Consultant Name Role Phone Amber Bedolla Antonio PALAFOX Primary Care Provider [phone]- [phone] Tarik Cadet MD Unavailable [phone] Reason for Visit * Reason Comments Pre-op Exam Encounter Details Date Type Department Care Team (Late st Contact Info) Description 12/23/2021 12:00 PM EDT Consult [facility] [address], [address] [place] [address] Leyla Armas PA [address] [place] [address] Anterolisthesis of lumbar spine (Primary Dx); DDD (degenerative disc disease), lumbar; Bilateral low back pain without sciatica, unspecified chronicity; Spondylolisthesis of lumbar region Social History Tobacco [...] PM EDT documented as of this encounter Last Filed Vital Signs Vital Sign Reading Time Taken Comments Blood Pressure - - Pulse - - Temperature - - Respiratory Rate - - Oxygen Saturation - - Inhaled Oxygen Concentration - - Weight 81.6 kg (180 lb) 12/23/2021 11:45 AM EDT Height 160 cm (5' 3 ) 12/23/2021 11:45 AM EDT Body Mass Index 31.89 12/23/2021 11:45 AM EDT documented in this encounter Miscellaneous Notes * Progress Notes - Leyla Armas PA - 12/23/2021 12:00 PM EDT We had the pleasure of seeing your patient in our clinic today for continued Neurosurgical evaluation. Chief Complaint Preop appointment. History Of Present [...] Arthritis, Dysphagia, FH: total knee replacement (2019), GERD (gastroesophageal reflux disease), Kidney stones, Motion sickness, Rheumatoid arthritis (CMS/HCC), and Rotator cuff tear arthropathy of right shoulder. Surgical History She has a past surgical history that includes Joint replacement and Hip Arthroplasty. Family History Family History Problem Relation Name [...] will also be tested for COVID-19 at [facility] and [place], [place] prior to their scheduled surgery day. The patient is agreeable to plan of care. They had the opportunity to ask questions, all of which were answered to their satisfaction. -impaired mobility. This places patient at higher risk for postoperative pneumonia and DVT. This will be addressed during the perioperative process. Assessment/Plan Active Problems: There are no active Hospital Problems. Leyla Armas PA-C [facility] [place] Department of Neurosurgery documented in this encounter Plan of Treatment Not on file documented as of this encounter Visit Diagnoses Diagnosis Anterolisthesis of lumbar spine- Primary DDD (degenerative disc disease), lumbar Degeneration of lumbar or lumbosacral intervertebral disc Bilateral low back pain without sciatica, unspecified chronicity Spondylolisthesis of lumbar region documented in this encounter Additional Health Concerns Assessment Noted Time A fall risk assessment has been complete d for the patient 12/23/2021 11:53 AM EDT documented as of this encounter Care Teams Business Solutions Consultant Relationship Specialty Start Date End Date Amber Bedolla APRN [address] [place] [address] PCP - General 07/18/20 Tarik Cadet MD [address] [address] Surgeon Neurosurgery 05/25/21 documented as of this encounter
--- OUTSIDE RECORDS SUMMARY | 2024-02-08 13:14 | XMS_ITS | Encounter Summary ---
Author Organization [facility] Address [address] [place] [address] Care Team Providers Care Networking Specialist Name Role Phone Amber Bedolla VIVIENNE Primary Care Provider [phone] Tarik Cadet MD Unavailable [phone] Reason for Visit * Reason Onset Date Comments HCN - Patient Message 07/24/2021 Encounter Details Date Type Department Care Team (Late st Contact Info) Description 07/24/2021 Telephone [facility] Interventional Pain Medicine [address] [place] [address] Ravi Salguero MD [address] [place] [address] HCN - Patient Message Social History Tobacco Use Types Packs/Day Years [...] encounter Miscellaneous Notes * Telephone Encounter - Harriet Barron - 07/30/2021 4:18 PM EDT Called pt and canc her procedure. Scheduled her an appt in September for a consult on the next step to take. * Telephone Encounter - Gemini Pacheco RN - 07/30/2021 3:42 PM EDT Spoke to patient and she wishes to cancel procedure and schedule a telehealth appointment to discuss further options. Message sent to scheduling. * Telephone Encounter - Gabo Olmstead - 07/24/2021 1:15 PM EDT Patient Phone Message Reason for Call: Dr. Salguero pt is requesting a call back from clinical staff. She states her pain has not improved following her last procedure and would like to discuss whether or not she should proceed with the repeat on 08/04. Best contact number and optimal time of day to reach caller: [phone] Note: Please do not reply to this message. Follow-up communication and further actions as a result of this message need to be communicated with the patient directly, if the patient is not active onMyChart. If the patient is active on MyChart, they will receive notification of the communication/outcome via Food52t. documented in this encounter Plan of Treatment Not on file documented as of this encounter Visit Diagnoses Not on filedocumented in this encounter Additional Health Concerns Assessment Noted Time A fall risk assessment has been complete d for the patient 07/20/2021 9:21 AM EDT documented as of this encounter Care Teams Networking Specialist Relationship Specialty Start Date End Date Amber Bedolla APRN [address] [place] [address] PCP - General 07/18/20 Tarik Cadet MD [address] [facility] [address] [place] [address] Surgeon Neurosurgery 05/25/21 documented as of this encounter
--- OUTSIDE RECORDS SUMMARY | 2024-02-08 13:14 | XMS_ITS | Encounter Summary ---
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
--- OUTSIDE RECORDS SUMMARY | 2024-02-08 13:14 | XMS_ITS | Encounter Summary ---
Author Organization [facility] Address [address] [id number] Care Team Providers Care Pediatric Physician Assistant Name Role Phone Amber Bedolla VIVIENNE Primary Care Provider [phone]- [phone] Tarik Cadet MD Unavailable Reason for Visit * Reason Onset Date Comments HCN - Patient Message 12/25/2021 Covid orde r requested Encounter Details Date Type Department Care Team (Late st Contact Info) Description 12/25/2021 Telephone [place] [facility] [address] [place] [address] Tarik Cadet MD [address] [place] [address] HCN - Patient Message (Covid order requested) Social History Tobacco Use Types Packs/Day Years [...] PM EDT documented as of this encounter Miscellaneous Notes * Telephone Encounter - Maria E Guzmán RN - 12/25/2021 2:24 PM EDT faxed * Telephone Encounter - Ralph Choi - 12/25/2021 2:11 PM EDT Patient Phone Message Reason for Call: Requesting new order for covid test faxed to [phone]. The previous order had the patient's name incorrectly as Piyush instead of Marcial. Please correct and refax. Best contact number and optimal time of day to reach caller: Reachable at [phone] Note: Please do not reply to this message. Follow-up communication and further actions as a result of this message need to be communicated with the patient directly, if the patient is not active onMyChart. If the patient is active on MyChart, they will receive notification of the communication/outcome via HashTip. documented in this encounter Plan of Treatment Not on file documented as of this encounter Visit Diagnoses Not on filedocumented in this encounter Additional Health Concerns Assessment Noted Time A fall risk assessment has been complete d for the patient 12/23/2021 11:53 AM EDT documented as of this encounter Care Teams Pediatric Physician Assistant Relationship Specialty Start Date End Date Amber Bedolla APRN [address] [address] PCP - General 07/18/20 Tarik Cadet MD [address] [place] [address] Surgeon Neurosurgery 05/25/21 documented as of this encounter
--- OUTSIDE RECORDS SUMMARY | 2024-02-08 13:14 | XMS_ITS | Encounter Summary ---
Author Organization [facility] Address [address] [id number] Care Team Providers Care Side Gluer Name Role Phone Amber Bedolla VIVIENNE Primary Care Provider [phone]- [phone] Tarik Cadet MD Unavailable [phone] Encounter Details Date Type Department Care Team (Late st Contact Info) Description 09/28/2021 2:45 PM EDT Office Visit [place] [facility] [address], [address] [place] [address] Tarik Cadet MD [address] [facility] [address] [place] [address] Anterolisthesis of lumbar spine (Primary Dx) Social History Tobacco Use Types [...] Sign Reading Time Taken Comments Blood Pressure 135/83 09/28/2021 2:18 PM EDT Pulse - - Temperature - - Respiratory Rate - - Oxygen Saturation - - Inhaled Oxygen Concentration - - Weight 83 kg (183 lb) 09/28/2021 2:18 PM EDT Height 160 cm (5' 3 ) 09/28/2021 2:18 PM EDT Body Mass Index 32.42 09/28/2021 2:18 PM EDT documented in this encounter Miscellaneous Notes * Progress Notes - Kenney Hernandez MD - 09/28/2021 2:45 PM EDT HPI: Patient is a 66-year-old lady who returns to neurosurgery clinic after getting injections for low back pain. She went received and her injections twice without any relief. She does not want to try physical therapy because she believes therapy was what caused this in the first place. Her back pain is currently unchanged. She is open to surgery if we think it will make her better. Review of systems. 14 Point ROS performed. Noncontributory except as indicated above-form completedby patient, reviewed and placed in chart. Past medical history, past surgical history, family history, social history, Current medications and Allergies were reviewed and are noted below. Physical Exam: General: No acute distress HEENT: Normocephalic, atraumatic CV: Regular rate and rhythm Lungs: Symmetric chest rise, nonlabored breathing MSK: Normal passive range of motion Psych: Normal affect Gait: Normal gait Skin: color consistent with ethnicity, no obvious pallor, atraumatic Neuro: Alert and oriented to person place and time. 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 She went received and her injections twice without any relief. She is interested in surgery. We would propose that she would an L4-5 MIS TLIF. She would like for this to occur [facility]. We will schedule her for December 30. We will give her a physical therapy prescription in the meantime. Thank you for allowing us to be a part of your patient's care. Please do not hesitate to contact usat the [facility] if there are any questions or concerns. Salo Hernandez MD PGY-3 Neurosurgery Cosigned by Tarik Cadet MD at 09/28/2021 5:34 PM EDT Associated attestation - Tarik Cadet MD - 09/28/2021 5:34 PM EDT I saw and evaluated the patient with the resident/SHEILA. I personally reviewed the available spinal imaging and historical documentation. I discussed the case with the residents/SHEILA and agree with the findings and plan as documented with the following additions: Nory Ceaj is a 66 y.o. female with a grade 1 spondylolisthesis at L4-5 which reduces completely in recumbency on her MRI. She has low back pain that is made worse with standing and activity. Her pain resolves when she lies flat she has had epidural steroids without improvement. She was in the midst of a course of 1.5 years of physical therapy at the time in which her pain started. She was unable to complete this therapy due to the pain. She is also scheduled to be evaluated for right shoulder surgery. I discussed the natural history of symptomatic lumbar spondylolisthesis with associated axial pain with the patient at length. The potential risks and benefits of the various management options including continued conservative measures as well as surgical intervention were thoroughly discussed. Given the severe and unremitting nature of symptoms and having failed prior conservative managementattempts, I discussed that surgery is a reasonable option. I specifically discussed that the primary indication for surgical intervention is to decompress spinal canal and nerves and to prevent further decline in mobility and function. No specific guarantees were given with regard to chronic axial pain. The specifics of a MIS L4-5 TLIF (left-sided approach) procedure were discussed and all questions answered. The risks described included but were not limited to the possibility of , paraparesis, persistent pain or numbness, failure to improve, fusion or hardware failure, need for more fusion in future, need for repeat surgery, infection, CSF leak, and bleeding. The patient also understands that her symptoms may not improve. I quoted the patient a 70-80% chance of improvement as well as the possibility of not improving after surgery. We also talked about postoperative recovery period and restrictions. The patient understands and wants to proceed. The patient will be scheduled for surgery and preop anesthesia visit. She also weight after her orthopedic evaluation before having surgery. In the meantime I gave her ascript for physical therapy to attempt leading up to surgery. I personally spent a total of 40 minutes on this encounter. This time includes face to face with patient, counseling and discussion and/or coordination of care. I spent >50% in [id number] communication with the patient over the diagnosis, treatment options and plan. documented in this encounter Plan of Treatment Not on file documented as of this encounter Visit Diagnoses Diagnosis Anterolisthesis of lumbar spine- Primary documented in this encounter Additional Health Concerns Assessment Noted Time A fall risk assessment has been complete d for the patient 09/28/2021 2:20 PM EDT documented as of this encounter Care Teams Side Gluer Relationship Specialty Start Date End Date Amber Bedolla APRN [facility] [address] [id number] PCP - General 07/18/20 Tarik Cadet MD [id number] [place] [address] Surgeon Neurosurgery 05/25/21 documented as of this encounter
--- OUTSIDE RECORDS SUMMARY | 2024-02-08 13:14 | XMS_ITS | Encounter Summary ---
Author Organization [facility] Address [address] [place] [address] Care Team Providers Care Instruments Sales Representative Name Role Phone ChiomaAmber Antonio PALAFOX Primary Care Provider [phone]- [phone] Tarik Cadet MD Unavailable [phone] Encounter Details Date Type Department Care Team (Late st Contact Info) Description 12/23/2021 12:00 PM EDT Office Visit [place] [facility] [address], [address] [place] [address] Preoperative testing; Encounter for pre-operative laboratory testing Social History [...] Procedure Name Priority Date/Time Associated Diagnosis Comments ECG ADULT Routine 12/23/2021 12:34 PM EDT Preoperative testing Encounter for pre-operative laboratory testing documented in this encounter Results * ECG Adult (12/23/2021 12:34 PM EDT) EKG DIAGNOSIS CLASS Normal MUSE ECG Ventricular Rate 73 BPM MUSE ECG Atrial Rate 73 BPM MUSE ECG IN Interval 148 ms MUSE ECG QRSD Interval 72 ms MUSE ECG QT Interval 342 ms MUSE ECG QTC Interval 376 ms MUSE ECG P [place] 49 degrees MUSE ECG R [place] 59 degrees MUSE ECG T Wave [place] 55 degrees MUSE ECG Diagnosis Normal sinus rhythm MUSE ECG Diagnosis Normal ECG MUSE ECG Diagnosis Confirmed by Jayesh Spencer ([id number]) on 12/23/2021 1:53:53 PM MUSE ECG 12/23/2021 12:3 4 PM EDT 12/23/2021 1:53 PM EDT Leyla BURGER ECG ORDERABLES Final Result MUSE ECG documented in this encounter Visit Diagnoses Diagnosis Preoperative testing Unspecified pre-operative examination Encounter for pre-operative laboratory testing documented in this encounter Additional Health Concerns Assessment Noted Time A fall risk assessment has been complete d for the patient 12/23/2021 11:53 AM EDT documented as of this encounter Care Teams Instruments Sales Representative Relationship Specialty Start Date End Date Amber Bedolla APRN [address] [address] PCP - General 07/18/20 Tarik Cadet MD [id number] [place] [address] Surgeon Neurosurgery 05/25/21 documented as of this encounter
--- OUTSIDE RECORDS SUMMARY | 2024-02-08 13:14 | XMS_ITS | Encounter Summary ---
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
--- OUTSIDE RECORDS SUMMARY | 2024-02-08 13:14 | XMS_ITS | Encounter Summary ---
Author Organization [facility] Address [address] [place] [address] Care Team Providers Care Bead Maker Name Role Phone ChiomaAmber barrios Antonio PALAFOX Primary Care Provider [phone]- [phone] Tarik Cadet MD Unavailable [phone] Encounter Details Date Type Department Care Team (Latest Contact Info) Description 02/15/2022 Travel Social History Tobacco Use Types Packs/Day [...] drink first t mony in the morning (EYE-MATERIALS ENGINEER) to steady your nerves or to [...] documented as of this encounter Care Teams Bead Maker Relationship Specialty Start Date End Date Amber Bedolla APRN [facility] [place] [address] PCP - General 07/18/20 Tarik Cadet MD [address] [address] Surgeon Neurosurgery 05/25/21 documented as of this encounter
--- OUTSIDE RECORDS SUMMARY | 2024-02-08 13:14 | XMS_ITS | Encounter Summary ---
Author Organization [facility] Address [address] [place] [address] Care Team Providers Care Taxi Servicer Name Role Phone Amber Bedolla VIVIENNE Primary Care Provider [phone]- [phone] Tarik Cadet MD Unavailable [phone] Reason for Visit * Reason Comments Follow-up Encounter Details Date Type Department Care Team (Late st Contact Info) Description 11/19/2021 11:30 AM EDT Office Visit [facility] Orthopaedic Surgery & Sports Medicine [address] [facility] [place] [address] Shadi Mims MD [address] [facility] [address] [place] [address] Traumatic complete tear of right rotator cuff, subsequent encounter (Primary Dx) Social History Tobacco Use Types [...] - - Weight 81.6 kg (180 lb) 11/19/2021 11:15 AM EDT Height 160 cm (5' 3 ) 11/19/2021 11:15 AM EDT Body Mass Index 31.89 11/19/2021 11:15 AM EDT documented in this encounter Miscellaneous Notes * Progress Notes - Shadi Mims MD - 11/19/2021 11:30 AM EDT History of present illness: Nory Ceja is a 66 y.o. female who returns today for continued evaluation of right shoulder pain. Patient was initially seen in April with a 10 month history of shoulder pain secondary to a fall. She was found to have a full-thickness retracted rotator cuff tear. We offered surgery at that time however she elected to wait. Today she returns with continued painhowever she is scheduled to undergo surgery for her lumbar spine on 12/30/21. This will require several months of rehabilitation. She is interested in pursuing options for surgery with regard to her shoulder in the summer of next year. I have reviewed and updated the patient's [...] Right SHOULDER EXAM There is no cervical tenderness and negative Spurling's. No obvious atrophy or deformity. No scapular dyskinesia. Patient has tenderness about the anterolateral shoulder. Active elevation is 140??, external rotation at the side 50??, internal rotation to L5. There is near full passive range of motion. There is pain with elevation and resisted strength testing. There is pain with resisted externalrotation. There is moderate weakness to supraspinatus testing, no obvious weakness [...] has no palpable epitrochlear lymphadenopathy. Imaging: X-Rays: Three views right shoulder ordered, obtained, previously reviewed and demonstrates no acute bony abnormalities. There is no superior migration of the humeral head and there is well-maintained glenohumeral joint space. MRI: MRI right shoulder previously reviewed and demonstrates a medium to large size rotator cuff tear with retraction near the glenoid. There is partial tearing of the biceps tendon in the bicipital groove. No significant atrophy of the supraspinatus muscle belly. Assessment/Plan 66-year-old female with right shoulder pain status post fall 18 months ago. The patient has attempted extensive non operative treatment with home therapy with some improvements but continues to describe weakness. We again reviewed surgical options including arthroscopic repair of the rotator cuff. We discussed the longer she waits the success of rotator cuff repair decreases and over time will become irreparable at which point she was a candidate for a reverse total shoulder arthroplasty. She understands and would like to continue conservative treatment until after her lumbar surgery. She would like to proceed with surgery in summer of next year. We will plan on seeing her back in July or August of next year with repeat radiographs to re-evaluate superior humeral head migration. documented in this encounter Plan of Treatment Not on file documented as of this encounter Visit Diagnoses Diagnosis Traumatic complete tear of right rotator cuff, subsequent encounter- Primary documented in this encounter Additional Health Concerns Assessment Noted Time A fall risk assessment has been complete d for the patient 11/19/2021 11:16 AM EDT documented as of this encounter Care Teams Taxi Servicer Relationship Specialty Start Date End Date Amber Bedolla APRN [address] [facility] [address] [place] [address] PCP - General 07/18/20 Tarik Cadet MD [address] [address] Surgeon Neurosurgery 05/25/21 documented as of this encounter
--- OUTSIDE RECORDS SUMMARY | 2024-02-08 13:14 | XMS_ITS | Encounter Summary ---
Author Organization [facility] Address [address] [place], [place] [id number] Care Team Providers Care Project Product Manager Name Role Phone Amber Bedolla APRN Primary Care Provider [phone]- [phone] Tarik Cadet MD Unavailable [phone] Encounter Details Date Type Department Care Team (Latest Contact Info) Description 09/27/2021 Travel Social History Tobacco Use Types Packs/Day [...] documented as of this encounter Care Teams Project Product Manager Relationship Specialty Start Date End Date Amber Bedolla APRN [address] [place] [address] PCP - General 07/18/20 Tarik Cadet MD [id number] [place] [address] Surgeon Neurosurgery 05/25/21 documented as of this encounter
--- OUTSIDE RECORDS SUMMARY | 2024-02-08 13:14 | XMS_ITS | Encounter Summary ---
Author Organization [facility] Address [address] [place] [id number] Care Team Providers Care Cake Press Operator Helper Name Role Phone ChiomaAmber barrios Antonio PALAFOX Primary Care Provider [phone]- [phone] Tarik Cadet MD Unavailable [phone] Encounter Details Date Type Department Care Team (Latest Contact Info) Description 12/29/2021 Travel Social History Tobacco Use Types Packs/Day [...] drink first t mony in the morning (EYE-DRONE PILOT) to steady your nerves or to get [...] suspected to have Coronavirus/COVID-19? No / Unsure 12/29/2021 11:26 AM EDT documented as of this encounter Plan of Treatment Not on file documented as of this encounter Visit Diagnoses Not on filedocumented in this encounter Additional Health Concerns Assessment Noted Time A fall risk assessment has been complete d for the patient 12/23/2021 11:53 AM EDT documented as of this encounter Care Teams Cake Press Operator Helper Relationship Specialty Start Date End Date Amber Bedolla APRN [facility] [place] [address] PCP - General 07/18/20 Tarik Cadet MD [id number] [place] [address] Surgeon Neurosurgery 05/25/21 documented as of this encounter
--- OUTSIDE RECORDS SUMMARY | 2024-02-08 13:14 | XMS_ITS | Encounter Summary ---
Author Organization [facility] Address [address] [place], [place] [id number] Care Team Providers Care Neurological Surgery Teacher Name Role Phone Amber Bedolla APRN Primary Care Provider [phone] Tarik Cadet MD Unavailable [phone] Encounter Details Date Type Department Care Team (Latest Contact Info) Description 11/19/2021 Travel Social History Tobacco Use Types Packs/Day [...] documented as of this encounter Care Teams Neurological Surgery Teacher Relationship Specialty Start Date End Date Amber Bedolla APRN [address] [place] [address] PCP - General 07/18/20 Tarik Cadet MD [id number] [place] [address] Surgeon Neurosurgery 05/25/21 documented as of this encounter
--- OUTSIDE RECORDS SUMMARY | 2024-02-08 13:14 | XMS_ITS | Encounter Summary ---
Author Organization [facility] Address [address] [place] [address] Care Team Providers Care Recreational Resort Manager Name Role Phone Amber Bedolla Antonio PALAFOX Primary Care Provider [phone] Tarik Cadet MD Unavailable [phone] Encounter Details Date Type Department Care Team (Late st Contact Info) Description 02/21/2022 Orders Only [place] [facility] [address] [place] [address] Koko Arambula PA [address] [place] [address] S/P lumbar spinal fusion (Primary [...] first t mony in the morning (EYE-MANAGER CUSTOMER SERVICE) to steady your nerves or to get [...] OR 3 VIEWS ordered by KOKO ARAMBULA [id number] CLINICAL INDICATION: follow up fusion TECHNIQUE: XR [...] 2 OR 3 VIEWS ordered by KOKO ARAMBULA,[id number] CLINICAL INDICATION: follow up fusion TECHNIQUE: XR [...] Meeks MD on 02/22/2022 2:55 PM Koko BURGER IMG XR PROCEDURES Final Result documented in this encounter Visit Diagnoses Diagnosis S/P lumbar spinal fusion- Primary Arthrodesis status S/P lumbar spinal fusion Arthrodesis status documented in this encounter Additional Health Concerns Assessment Noted Time A fall risk assessment has been complete d for the patient 12/23/2021 11:53 AM EDT documented as of this encounter Care Teams Recreational Resort Manager Relationship Specialty Start Date End Date Amber Bedolla APRN [facility] [place] [address] PCP - General 07/18/20 Tarik Cadet MD [address] [address] Surgeon Neurosurgery 05/25/21 documented as of this encounter
--- OUTSIDE RECORDS SUMMARY | 2024-02-08 13:14 | XMS_ITS | Encounter Summary ---
Author Organization [facility] Address [address] [place] [address] Care Team Providers Care Event Specialist Food Demonstrator Name Role Phone Amber Bedolla VIVIENNE Primary Care Provider [phone] Tarik Cadet MD Unavailable [phone] Reason for Visit * Auth/Cert (Routine) Specialty Diagnoses / Procedures Referred By Contac t Referred To Contact Diagnoses Anterolisthesis of lumbar spine Anterolisthesis of lumbar spine [M43.16] Procedures GA ARTHRODESIS POSTERIOR INTERBODY LUMBAR GA INSJ BIOMCHN DEV INTERVERTEBRAL DSC SPC W/ARTHRD GA POSTERIOR NON-SEGMENTAL INSTRUMENTATION GA ALLOGRAFT FOR SPINE SURGERY ONLY MORSELIZED GA AUTOGRAFT SPINE SURGERY LOCAL FROM SAME INCISION GA STEREOTACTIC COMP ASSIST PROC,SPINAL L4-5 MIS TLIF ADD ON SPINE NAVIGATION Tarik Cadet MD [address] [facility] [address] [place] [address] Phone: tel: fax: [facility] [address] [place] [address] Phone: tel: Referral ID Status Reason Start Date Expiration Date Visits Re quested Visits Authorized [id number] 1 1 Encounter Details Date Type Department Care Team (Late st Contact Info) Description 12/30/2021 8:15 AM EDT - 12/30/2021 12:15 PM EDT Surgery [facility] [address] [place] [address] Tarik Cadet MD [address] [place] [address] L4-5 MIS TLIF Surgery Details Date/Time Status Location OR Service Patient Class Case Class Case Type Trauma Case? 12/30/2021 8:15 AM Posted PERFECTO OR PAVA OR 05 Neurosurgery Extended Recovery E-Electi ve Panel 1 Procedure LRB Anes Op Region Wound Class Comments L4-5 MIS TLIF N/A General Spine Lumbar Class I/ Trudy n Surgeon Surgeon Role Service Panel Alvin Mendez MD Resident - Assisting Neuros urgery 1 Tarik Cadet MD Primary Neurosurgery 1 documented in this encounter Social History [...] drink first t mony in the morning (EYE-CERTIFIED MEDICATION AIDE) to steady your nerves or to get [...] AM EDT documented as of this encounter Last Filed Vital Signs Vital Sign Reading Time Taken Comments Blood Pressure 120/74 12/30/2021 12:15 PM EDT Pulse 85 12/30/2021 12:15 PM EDT Temperature 35.4 ??C (95.7 ??F) 12/30/2021 12:10 PM E DT Respiratory Rate 13 12/30/2021 12:15 PM EDT Oxygen Saturation 99% 12/30/2021 12:15 PM EDT Inhaled Oxygen Concentration - - Weight - - Height - - Body Mass Index - - documented in this encounter Medications at Time [...] section accepted * Progress Notes - Lubna Phillips, RN - 01/01/2022 10:46 AM EDT POC reviewed with multidisciplinary team, per MD, pt is medically ready to discharge home today. Ptaware and agreeable to discharge plan, no further questions. Discharge today. * Discharge Summary - Kristina Amber DuboseVIVIENNE - 01/01/2022 6:41 AM EDT Hospitalization Admit Date/Time: 12/30/2021 5:50 AM Admitting Attending: Tarik Cadet Discharge Date: 01/01/22 Discharge Attending Physician: Tarik Cadet Md PCP name and Address: Amber Lozada[address] / [place] [address] Referring provider name and address: No referring provider defined for this encounter. Chief Concern, Brief History of Present Illness, and Hospital Course Nory Ceja is a 66 y.o. female who presented to the [facility] on 12/30/2021 for elective surgery forgrade [...] stable condition and will follow up in [facility] clinic on 01/13 Surgeries and Procedures L4-5 [...] Your Medications These medications were sent to [facility] [place], [place] - [address], [facility] [address] cyclobenzaprine 10 MG tablet oxyCODONE 5 MG immediate release tablet polyethylene glycol 17 g packet senna-docusate 8.6-50 MG tablet Discharge Diagnosis Medical Problems Active and Resolved Hospital Problems Hospital Neurogenic claudication due to lumbar spinal stenosis * (Principal) Anterolisthesis of lumbar spine Overview Signed 09/28/2021 3:04 PM by Kenney Hernandez MD Added automatically from request for surgery [id number] Post Discharge Instructions Diet: Resume home diet [...] Time Provider Department Center 01/13/2022 11:00 AM [facility] NEUROSURGERY SPINE ASSEMBLER TYPE BAR AND SEGMENT (2) [facility] 02/22/2022 2:45 PM Tarik Cadet MD [facility] 07/22/2022 9:20 AM [facility] Results Pending At Discharge none Pertinent [...] HF KE KF DF EHL PF RLE: /5 5/5 5/5 5/5 5/5 5/5 LLE: 5 5/5 5/5 5/5 5/5 5/5 Sensation was [...] Ongoing, Progressing * Progress Notes - Clifford Flood, - 12/31/2021 4:15 PM EDT Neurosurgery Progress [...] 2 tablet 2 tablet Oral BID Amber Acevedo APRN 2 tablet at 12/31/212055 Last Recorded Vitals [...] 1900 - 12/30/21 0659 12/30/21 0700 - 12/30/21 18512/30/21 1900 - 12/31/21 0659 12/31/21 0700 - 12/31/21 18512/31/21 190 - 12/31/212106 Patient has no LDAs of [...] HWA - Q4h Neuro checks - IV STRETCHER OPERATOR--> PO pain - Bowel regimen - Resume home meds as able F: HL E: Replete as needed N: Regular diet Huy Flood DO Resident Physician PGY-1 [facility] Pager: [phone] Cosigned by Tarik Cadet MD at 01/01/2022 8:38 AM EDT Associated attestation - Tarik Cadet MD - 01/01/2022 8:38 AM EDT I saw and evaluated the patient with the resident/fellow. I discussed the case with the resident/fellow and agree with the findings and plan as documented. * Progress Notes - Lubna Phillips, RN - 12/31/2021 3:12 PM EDT POC reviewed with multidisciplinary team, per , pt is not medically ready to discharge d/t pod#1 MIS TLIF protocol. CM met with pt at bedside, pt reports she lives with her spouse in a 2 [address] [facility] in [place] [address]. 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 PCP is Amber Bedolla, insurance is Medicare A and B with [employer] [place].Pt has a LW and POA. HWA recs. CM will continue to follow and assist with discharge planning needs. * Progress Notes - Vish Nance R - 12/31/2021 10:38 AM EDT Physical Therapy [...] disease), Kidney stones, Motion sickness, Rheumatoid arthritis ([facility]), and Rotator cuff tear arthropathy of right shoulder. Past Surgical History Patient has a past surgical history that includes Joint replacement; Hip Arthroplasty; and Spinal fusion (12/30/2021). Precautions Medical Precautions: Spinal Spinal Precautions : No bending, lifting, twisting Subjective Pt pleasant and agreeable to work with PT Participants in Care Family/Caregiver Present: No Clothing Cutter: Not Applicable Presentation Oxygen Therapy: None (Room [...] admission Level of Mobility: Ambulatory- community Mobility [place]: Independent gait without device History of Falls: [...] tested 3/5 shown with mobility; elbow and wrist/track leader WFL) Sensation Light Touch: Right Upper Extremity: [...] precuations Bed Mobility Exam: Rolling/Turning Level of [place]: Stand-by assist Physical/Nonphysical Assist: Verbal Cues Assistive Device: Bed rails Bed Mobility Exam: Supine to Sit Level of [place]: Contact guard Physical/Nonphysical Assist: Set-up required, Verbal Cues, Nonverbal cues (demo/gestures), HOB elevated, Minimal cues Transfers Transfer Exam: Sit to stand Level of [place]: Stand-by assist Physical/Nonphysical Assist: Set-up required Assistive Device: Walker, rolling Transfer Exam: Stand to Sit Level of [place]: Stand-by assist Physical/Nonphysical Assist: Verbal Cues, Set-up [...] details Standardized Assessments Standardized Assessments Standardized Assessments: [facility] 6-Clicks Mobility Assessment [facility] 6-Clicks Mobility Assessment Difficulty patient has turning [...] 3-5 steps with a railing?: A little [facility] 6-Clicks Mobility Assessment Total : 23 Standardized Assessments Standardized Assessments Standardized Assessments: [facility] 6-Clicks Mobility Assessment [facility] 6-Clicks Mobility Assessment Difficulty patient has turning [...] 3-5 steps with a railing?: A little [facility] 6-Clicks Mobility Assessment Total : 23 Assessment [...] admission Level of Mobility: Ambulatory- community Mobility [place]: Independent gait without device History of Falls: [...] tested 3/5 shown with mobility; elbow and wrist/track leader WFL) Sensation Light Touch: Right Upper Extremity: [...] Mobility Bed Mobility Exam: Rolling/Turning Level of [place]: Stand-by assist Physical/Nonphysical Assist: Verbal Cues Bed Mobility Exam: Supine to Sit Level of [place]: Contact guard Physical/Nonphysical Assist: Set-up required, Verbal Cues, HOB elevated, Minimal cues Assistive Device: Bed rails Transfers Transfer Exam: Sit to stand Level of [place]: Stand-by assist Physical/Nonphysical Assist: Set-up required Assistive Device: Walker, rolling Transfer Exam: Stand to Sit Level of [place]: Stand-by assist Physical/Nonphysical Assist: Verbal Cues, Set-up [...] max assist. Pt reports she has a wood pole treater and sock aid at home that she [...] mcg/kg/hr sodium chloride 0.9%, 10 mL/hr IV STRETCHER OPERATOR Hydromorphone 0.5 mg/ml; 0.1 mg Q6min; L4-5 [...] mcg/kg/hr sodium chloride 0.9%, 10 mL/hr IV STRETCHER OPERATOR Hydromorphone 0.5 mg/ml; 0.1 mg Q6min; L4-5 Fusion; Hx: arthritis, RA, dysphagia, kidney stones Implants Hip Hip - Implanted (Left) Pelvis As of 12/30/2021 Status: Implanted Knee Knee - Implanted (Bilateral) Knee As of 12/30/2021 Status: Implanted Type Not Specified Graft Vivigen 5cc - [id number] - Implanted Spine Lumbar Inventory item: GRAFT VIVIGEN 5CC Model/Cat number: [id number] Custom Stock Maker: [id number] Lot number: [id number] As of 12/30/2021 Status: Implanted Single Inner Setscrew - [id number] - Implanted Spine Lumbar Inventory item: SINGLE INNER SETSCREW Model/Cat number: [id number] Custom Stock Maker: Greats -[id number] As of 12/30/2021 Status: Implanted Screw 6.0mm Viper Cfx Fen Xtab 45mm - [id number] - Implanted Spine Lumbar Inventory item: SCREW 6.0MM VIPER CFX FEN XTAB 45MM Model/Cat number: [id number] Custom Stock Maker: ChipRewards Spine Sapient -[id number] As of 12/30/2021 Status: Implanted Screw 7.0mm Viper Cfx Fen Xtab 45mm - [id number] - Implanted Spine Lumbar Inventory item: SCREW 7.0MM VIPER CFX FEN XTAB 45MM Model/Cat number: [id number] Custom Stock Maker: ChipRewards Spine Sapient [id number] As of 12/30/2021 Status: Implanted Tlif-C Ui 10mm 8deg 01/01 - [id number] - Implanted Spine Lumbar Inventory item: TLIF-C UI 10MM 8DEG 2810 Model/Cat number: [id number] Custom Stock Maker: ChipRewards Spine Sapient -[id number] As of 12/30/2021 Status: Implanted Carlos Viper2 Lordotic 40mm - [id number] - Implanted Spine Lumbar Inventory item: CARLOS VIPER2 LORDOTIC 40MM Model/Cat number: [id number] Custom Stock Maker: ChipRewards Spine Sapient [id number] As of 12/30/2021 Status: Implanted Carlos Viper2 Lordotic 45mm - [id number] - Implanted Spine Lumbar Inventory item: CARLOS VIPER2 LORDOTIC 45MM Model/Cat number: [id number] Custom Stock Maker: ChipRewards Spine Sapient [id number] As of 12/30/2021 Status: Implanted Does the patient have any itching: No TREATMENT: Follow-Up: Follow-Up: Will continue to monitor and adjust as needed. Acute Pain Service Comments: Doing well; pain controlled ; used 46 blender laborer doses/ 19 hours (7.1mg Dilaudid) * Consults [...] 1241) sodium chloride 0.9%, 10 mL/hr IV STRETCHER OPERATOR Hydromorphone 0.5 mg/ml; 0.1 mg Q6min; L4-5 [...] 1241) sodium chloride 0.9%, 10 mL/hr IV STRETCHER OPERATOR Hydromorphone 0.5 mg/ml; 0.1 mg Q6min; L4-5 Fusion; Hx: arthritis, RA, dysphagia, kidney stones Implants Hip Hip - Implanted (Left) Pelvis As of 12/30/2021 Status: Implanted Knee Knee - Implanted (Bilateral) Knee As of 12/30/2021 Status: Implanted Type Not Specified Graft Vivigen 5cc - [id number] - Implanted Spine Lumbar Inventory item: GRAFT VIVIGEN 5CC Model/Cat number: [id number] Custom Stock Maker: [id number] Lot number: [id number] As of 12/30/2021 Status: Implanted Single Inner Setscrew - [id number] - Implanted Spine Lumbar Inventory item: SINGLE INNER SETSCREW Model/Cat number: [id number] Custom Stock Maker: Greats -[id number] As of 12/30/2021 Status: Implanted Screw 6.0mm Viper Cfx Fen Xtab 45mm - [id number] - Implanted Spine Lumbar Inventory item: SCREW 6.0MM VIPER CFX FEN XTAB 45MM Model/Cat number: [id number] Custom Stock Maker: Greats -[id number] As of 12/30/2021 Status: Implanted Screw 7.0mm Viper Cfx Fen Xtab 45mm - [id number] - Implanted Spine Lumbar Inventory item: SCREW 7.0MM VIPER CFX FEN XTAB 45MM Model/Cat number: [id number] Custom Stock Maker: Greats -[id number] As of 12/30/2021 Status: Implanted Tlif-C Ui 10mm 8deg 01/01 - [id number] - Implanted Spine Lumbar Inventory item: TLIF-C UI 10MM 8DEG 10 Model/Cat number: [id number] Custom Stock Maker: Greats -[id number] As of 12/30/2021 Status: Implanted Carlos Viper2 Lordotic 40mm - [id number] - Implanted Spine Lumbar Inventory item: CARLOS VIPER2 LORDOTIC 40MM Model/Cat number: [id number] Custom Stock Maker: Greats [id number] As of 12/30/2021 Status: Implanted Carlos Alexaer2 Lordotic 45mm - [id number] - Implanted Spine Lumbar Inventory item: CARLOS ALEXAER2 LORDOTIC 45MM Model/Cat number: [id number] Custom Stock Maker: Greats [id number] As of 12/30/2021 Status: Implanted Does the patient have any itching: No TREATMENT: IV STRETCHER OPERATOR Follow-Up: Follow-Up: Will continue to monitor and [...] 1241) sodium chloride 0.9%, 10 mL/hr IV STRETCHER OPERATOR Hydromorphone 0.5 mg/ml; 0.1 mg Q6min; L4-5 [...] 1241) sodium chloride 0.9%, 10 mL/hr IV STRETCHER OPERATOR Hydromorphone 0.5 mg/ml; 0.1 mg Q6min; L4-5 Fusion; Hx: arthritis, RA, dysphagia, kidney stones Implants Hip Hip - Implanted (Left) Pelvis As of 12/30/2021 Status: Implanted Knee Knee - Implanted (Bilateral) Knee As of 12/30/2021 Status: Implanted Type Not Specified Graft Vivigen 5cc - [id number] - Implanted Spine Lumbar Inventory item: GRAFT VIVIGEN 5CC Model/Cat number: [id number] Custom Stock Maker: [id number] Lot number: [id number] As of 12/30/2021 Status: Implanted Single Inner Setscrew - [id number] - Implanted Spine Lumbar Inventory item: SINGLE INNER SETSCREW Model/Cat number: [id number] Custom Stock Maker: Greats -[id number] As of 12/30/2021 Status: Implanted Screw 6.0mm Viper Cfx Fen Xtab 45mm - [id number] - Implanted Spine Lumbar Inventory item: SCREW 6.0MM VIPER CFX FEN XTAB 45MM Model/Cat number: [id number] Custom Stock Maker: Greats [id number] As of 12/30/2021 Status: Implanted Screw 7.0mm Viper Cfx Fen Xtab 45mm - [id number] - Implanted Spine Lumbar Inventory item: SCREW 7.0MM VIPER CFX FEN XTAB 45MM Model/Cat number: [id number] Custom Stock Maker: ChipRewards Spine Sapient [id number] As of 12/30/2021 Status: Implanted Tlif-C Ui 10mm 8deg 01/01 - [id number] - Implanted Spine Lumbar Inventory item: TLIF-C UI 10MM 8DEG 01/01 Model/Cat number: [id number] Custom Stock Maker: ChipRewards Spine Sapient [id number] As of 12/30/2021 Status: Implanted Carlos Viper2 Lordotic 40mm - [id number] - Implanted Spine Lumbar Inventory item: CARLOS VIPER2 LORDOTIC 40MM Model/Cat number: [id number] Custom Stock Maker: ChipRewards Spine Sapient [id number] As of 12/30/2021 Status: Implanted Carlos Viper2 Lordotic 45mm - [id number] - Implanted Spine Lumbar Inventory item: CARLOS VIPER2 LORDOTIC 45MM Model/Cat number: [id number] Custom Stock Maker: Greats [id number] As of 12/30/2021 Status: Implanted Does the [...] Type Not Specified Graft Vivigen 5cc - [id number] - Implanted Spine Lumbar Inventory item: GRAFT VIVIGEN 5CC Model/Cat number: [id number] Custom Stock Maker: [id number] Lot number: [id number] As of 12/30/2021 Status: Implanted Single Inner Setscrew - [id number] - Implanted Spine Lumbar Inventory item: SINGLE INNER SETSCREW Model/Cat number: [id number] Custom Stock Maker: Greats -[id number] As of 12/30/2021 Status: Implanted Screw 6.0mm Viper Cfx Fen Xtab 45mm - [id number] - Implanted Spine Lumbar Inventory item: SCREW 6.0MM VIPER CFX FEN XTAB 45MM Model/Cat number: [id number] Custom Stock Maker: Greats -[id number] As of 12/30/2021 Status: Implanted Screw 7.0mm Viper Cfx Fen Xtab 45mm - [id number] - Implanted Spine Lumbar Inventory item: SCREW 7.0MM VIPER CFX FEN XTAB 45MM Model/Cat number: [id number] Custom Stock Maker: ChipRewards Spine Sapient -[id number] As of 12/30/2021 Status: Implanted Tlif-C Ui 10mm 8deg 2810 - [id number] - Implanted Spine Lumbar Inventory item: TLIF-C UI 10MM 8DEG 28/10 Model/Cat number: [id number] Custom Stock Maker: Greats -[id number] As of 12/30/2021 Status: Implanted Carlos Viper2 Lordotic 40mm - [id number] - Implanted Spine Lumbar Inventory item: CARLOS VIPER2 LORDOTIC 40MM Model/Cat number: [id number] Custom Stock Maker: Greats -[id number] As of 12/30/2021 Status: Implanted Carlos Viper2 Lordotic 45mm - [id number] - Implanted Spine Lumbar Inventory item: CARLOS VIPER2 LORDOTIC 45MM Model/Cat number: [id number] Custom Stock Maker: Greats [id number] As of 12/30/2021 Status: Implanted Pain Assessment: Pain Rating (0-10): 8 Comfort/ acceptable pain level (0-10): 6 Location: back, lumbar Frequency/ quality: constant Pain Information: Onset of pain: post op Pain related to: surgery Factors that aggravate pain: activity, breathing, ineffective pain medication (dosage/ frequency), and movement Factors that relieve pain: medications Pain Service Plan: Plan: Place on IV STRETCHER OPERATOR Medications/ Dose: HYDROmorphone, naloxone, 0.25-1 mcg/kg/hr sodium chloride 0.9 % with KCl 20 mEq, 75 mL/hr, Last Rate: 75 mL/hr (12/30/21 1241) sodium chloride 0.9%, 10 mL/hr No specialty comments available. dilaudid 0.5 mg/ml STRETCHER OPERATOR settin.1 mg q 6 minutes Basal rate: [...] status: acceptable Discharge Disposition: home Cosigned by Chirs Zaragoza MD at 12/30/2021 2:04 PM EDT Associated attestation - Chris Zaragoza MD - 12/30/2021 2:04 PM EDT I agree * Op Note - Tarik Cadet MD - 12/30/2021 9:20 AM EDT Operative Note Date: 12/30/21 Location: [facility] Name: Marianela Ceja, : 1955, Diagnoses: [...] Attending Surgeon(s): * Tarik Cadet - Primary Marble Chip Terrazzo Worker(s): * Alvin Mendez MD - Resident - Assisting Anesthesia: General ASA: ASA status not filed in the log. Blood Administration: Blood Product Administration History None Estimated Blood Loss: Minimal Drains: Urethral Catheter Temperature probe 16 Fr. (Active) Implants Type Name Action Serial No. GRAFT VIVIGEN 5CC - [id number] Implanted SINGLE INNER SETSCREW - [id number] Implanted SCREW 6.0MM VIPER CFX FEN XTAB 45MM - [id number] Implanted SCREW 7.0MM VIPER CFX FEN XTAB 45MM - [id number] Implanted TLIF-C UI 10MM 8DEG 28/10 - [id number] Implanted CARLOS VIPER2 LORDOTIC 40MM - [id number] Implanted CARLOS VIPER2 LORDOTIC 45MM - [id number] Implanted Indications: Marianela Ceja is an 66 y.o. female who is having surgery for 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 Rheumatoid arthritis, involving unspecified site, unspecified whether rheumatoid factor present ([facility]) Class 1 obesity due to excess calories [...] to the fascia using monopolar electrocautery. The jarred marky was used to feli the pedicles at [...] the funnel. The appropriately sized interbody spacer ([place]al[place]y Conduit) was selected, packed with a combination of [...] disease), Kidney stones, Motion sickness, Rheumatoid arthritis ([facility]), and Rotator cuff tear arthropathy of right [...] will also be tested for COVID-19 at [facility] and [place], [place] prior to their scheduled surgery day. The patient is agreeable to plan of care. They had the opportunity to ask questions, all of which were answered to their satisfaction. To OR today with Dr. Cadet Cosigned by Tarik Cadet MD at 12/30/2021 8:15 AM EDT * PAT Phone Note - Emilee Grant RN - 12/22/2021 1:26 PM EDT HPI Nory Ceja is a 66 y.o. female who presents with Pre-op Diagnosis * Anterolisthesis of lumbar spine [M43.16] now scheduled for L4-5 MIS TLIF (N/A). 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 Rheumatoid arthritis, involving unspecified site, unspecified whether rheumatoid factor present ([facility]) Class 1 obesity due to excess calories without serious comorbidity with body mass index (BMI) of 31.0 to 31.9 in adult documented in this encounter Admitting Diagnoses Diagnosis [...] Given 12/31/2021 4:07 PM EDT 650 mg bupivacaine PF (Marcaine) 0.25 % injection As needed, Starting on Tue12/30/21 at 1121, Until Tue12/30/21 at 1206, Routine, Intraprocedure Given 12/30/2021 11:21 AM EDT 20 mL cyclobenzaprine (Flexeril) tablet 10 mg 10 mg, Oral, 3 times daily, First dose (after last modification) on Tue01/01/22 at 0900, Until Discontinued, Routine, Recovery(Phase II-Outpatient)/On Unit(Inpatient) Given 01/01/2022 3:33 PM EDT 10 mg Given 01/01/2022 8:50 AM EDT 10 mg diclofenac (Voltaren) 1 % topical gel [...] Given 12/30/2021 8:23 PM EDT 20 mg lamoTRIgine (LaMICtal) tablet 300 mg 300 mg, Oral, Daily, First dose on Tue12/31/21 at 0900, Until Discontinued, Routine Given 01/01/2022 8:4 4 AM EDT 300 mg Given 12/31/2021 9:25 AM EDT 300 mg lidocaine-EPINEPHrine (Xylocaine W/EPI) 1.5 %-1:241720 injection As needed, Starting on Tue12/30/21 at 0932, Until Tue12/30/21 at 1206, Routine, Intraprocedure Given 12/30/2021 9:32 AM EDT 30 mL ondansetron (Zofran) injection 4 mg 4 mg, Intravenous, Every 6 hours PRN, Starting on Tue12/30/21 at 0820, Until Tue01/01/22 at 1758, Routine, Recovery(Phase II-Outpatient)/On Unit(Inpatient), nausea, vomiting oxyCODONE (Roxicodone) immediate release tablet 10 mg 10 mg, Oral, Every 6 hours PRN, Starting on Tue12/31/21 at 0918, Until Tue01/01/22 at 1758, Routine, moderate pain oxyCODONE (Roxicodone) immediate release tablet 5 mg 5 mg, Oral, Every 6 hours PRN, Starting on Tue12/31/21 at 0918, Until Tue01/01/22 at 1758, Routine, [...] Swab. senna-docusate (Yudelka-Colace) 8.6-50 MG per tablet 2 tablet 2 tablet, Oral, 2 times daily, First dose on Emma 12/31/21 at 0900, Until Discontinued, Routine Given 01/01/2022 8:45 AM EDT 2 tablets Given 12/31/2021 8:56 PM EDT 2 tablets Given 12/31/2021 9:26 AM EDT 1 tablet thrombin (recombinant) (Recothrom) topical solution As needed, Starting on Tue12/30/21 at 0933, Until Tue12/30/21 at 1206, Routine Given 12/30/2021 9:33 AM EDT 5,000 Units vancomycin (Vancocin) vial for injection As needed, Starting on Tue12/30/21 at 1121, Until Tue12/30/21 at 1206, Routine, Intraprocedure Given 12/30/2021 11:21 AM EDT 1 g documented in this encounter Active and Recently [...] Provider: Juany Rosas)0925 (Given - Provider: Ozzie Mccarthy, CRISELDA)1607 (Given - Provider: Ozzie Mccarthy, CRISELDA)2358 (Given - Provider: Juany Rosas) 0845 (Given - Provider: Leyla Flores RN)1645 (Canceled Entry - Provider: Automatic Discharge Provider - Comment: Automatically canceled at discontinue of medication order) ceFAZolin (Ancef) injection 2 g () 2 g, Intravenous, Every 8 hours, 3 doses, First dose on Tue12/30/21 at 0845, Last dose on Emma 12/31/21 at 0045, Routine, Recovery(Phase II-Outpatient)/On Unit(Inpatient) 0845 [...] 0900 (Due)1638 (Given - Provider: Henrry Mohan RN)2016 (Given - Provider: Juany Rosas) 0924 (Given - Provider: Ozzie Mccarthy RN)152 (Given - Provider: Ozzie Mccarthy, CRISELDA)205 (Given - Provider: Juany Rosas) diclofenac (Voltaren) [...] II-Outpatient)/On Unit(Inpatient) 0926 (Given - Provider: Ozzie Mccarthy, CRISELDA) 0846 (Given - Provider: Leyla Flores, RN) lactated Ringer's infusion (COMPLETED) 100 mL/hr, Intravenous, Once, 1 dose, On Tue12/30/21 at 0800, Routine 0740 (New Bag - Provider: Willow Monsivais DO)0933 (Anesthesia Volume Adjustment - Provider: Willow Monsivais DO)1028 (Anesthesia Volume Adjustment - Provider: Willow Monsivais DO)1107 (Anesthesia Volume Adjustment - Provider: Willow Monsivais DO)1133 (Stopped - Provider: Mraiana Augustine MD) lamoTRIgine (LaMICtal) tablet 300 mg [...] Automatically canceled at discontinue of medication order) 09 (Given - Provider: Ozzie Mccarthy RN) 0845 (Given - Provider: Leyla Flores RN) polyethylene glycol (Miralax) packet 17 g 17 g, Oral, 2 times daily, First dose on Tue12/31/21 at 0900, Until Discontinued, Routine 0936 (Not Given - Provider: Ozzie Mccarthy RN - Reason: Patient/family refused)2054 (Given - Provider: Juany Rosas) 0846 (Given - Provider: Leyla Flores RN) Povidone-Iodine 5 % swab solution 1 Swab Nasal, Daily, 5 doses, First dose on Tue12/31/21 at 1015, Last dose on Tue01/04/22 at 0900, Routine 1213 (Not Given - Provider: Ozzie Mccarthy RN - Reason: Hold for condition: must add comment - Comment: no indication, estes has been removed) 0846 (Given - Provider: Leyla Flores RN) senna-docusate (Yudelka-Colace) 8.6-50 MG per tablet 1 tablet (CANCELED) 1 tablet, Oral, 2 times daily, First dose on Tue12/30/21 at 0900, Until Discontinued, Routine, Recovery(Phase II-Outpatient)/On Unit(Inpatient) 09 (Due)2015 (Given - Provider: Juany Rosas) senna-docusate (Yudelka-Colace) 8.6-50 MG per tablet 2 tablet 2 tablet, Oral, 2 times daily, First dose on Tue12/31/21 at 0900, Until Discontinued, Routine 0926 (Given - Provider: Ozzie Mccarthy RN - Comment: pt would only like 1 tablet)2055 (Given - Provider: Juany Rosas) 0845 (Given - Provider: Leyla Flores, CRISELDA) Continuous Medication Order 12/30/2021 12/31/2021 01/01/2022 HYDROmorphone 25 mg in 50 mL NS (0.5 mg/mL) STRETCHER OPERATOR (naive protocol) (CANCELED)(Linked Group 1) Patient STRETCHER OPERATOR Dose: 0.1 mg, STRETCHER OPERATOR Lockout: 6 Minutes, Continuous Dose (MG/hr): 0 mg/hr, Nurse Loading Dose: 0.4 mg, Intravenous, STAT 1330 (New Syringe/Cartridge - Provider: Chente Natarajan, RN)1922 (Handoff - Provider: Ozzie Mccarthy RN) sodium chloride 0.9 % with KCl 20 [...] Provider: Juany Rosas) lidocaine-EPINEPHrine (Xylocaine W/EPI) 1.5 %-[id number] injection (CANCELED) As needed, Starting on Tue12/30/21 [...] pain 0954 (See Alternative - Provider: Ozzie Mccarthy RN)1207 (See Alternative - Provider: Ozzie Mccarthy RN)1607 (See Alternative - Provider: Ozzie Mccarthy RN)1924 [...] Ozzie Mccarthy RN)1207 (Given - Provider: Ozzie Mccarthy RN)1607 (Given - Provider: Ozzie Mccarthy RN)1924 [...] mg in 50 mL NS (0.5 mg/mL) STRETCHER OPERATOR (naive protocol) (CANCELED)Jump to med Patient STRETCHER OPERATOR Dose: 0.1 mg, STRETCHER OPERATOR Lockout: 6 Minutes, Continuous Dose (MG/hr): 0 mg/hr, Nurse Loading Dose: 0.4 mg, Intravenous, STAT And HYDROmorphone bolus dose 0.2-0.8 mg (CANCELED)Jump to med 0.2-0.8 mg, Intravenous, Every 15 min PRN, Starting on Tue12/30/21 at 1256, Until Emma 12/31/21 at 0918, Routine, severe pain Group 2: [...] documented as of this encounter Care Teams Event Specialist Food Demonstrator Relationship Specialty Start Date End Date Amber Bedolla APRN [address] [place] [address] PCP - General 07/18/20 Tarik Cadet MD [address] [place] [address] Surgeon Neurosurgery 05/25/21 documented as of this encounter
--- OUTSIDE RECORDS SUMMARY | 2024-02-08 13:14 | XMS_ITS | Encounter Summary ---
Author Organization [facility] Address [address] [place], [place] [address] Care Team Providers Care Air Conditioning Mechanic Industrial Name Role Phone Amber Bedolla APRN Primary Care Provider [phone]- [phone] Tarik Cadet MD Unavailable [phone] Encounter Details Date Type Department Care Team (Latest Contact Info) Description 11/18/2021 Travel Social History Tobacco Use Types Packs/Day [...] documented as of this encounter Care Teams Air Conditioning Mechanic Industrial Relationship Specialty Start Date End Date Amber Bedolla APRN [address] [place] [address] PCP - General 07/18/20 Tarik Cadet MD [id number] [place] [address] Surgeon Neurosurgery 05/25/21 documented as of this encounter
--- OUTSIDE RECORDS SUMMARY | 2024-02-08 13:14 | XMS_ITS | Encounter Summary ---
Author Organization [facility] Address [address] [place], [place] [id number] Care Team Providers Care Pharmacy Assistant Name Role Phone Amber Bedolla APRN Primary Care Provider [phone]- [phone] Tarik Cadet MD Unavailable [phone] Encounter Details Date Type Department Care Team (Latest Contact Info) Description 09/08/2021 Travel Social History Tobacco Use Types Packs/Day [...] documented as of this encounter Care Teams Pharmacy Assistant Relationship Specialty Start Date End Date Amber Bedolla APRN [address] [place] [address] PCP - General 07/18/20 Tarik Cadet MD [address] [place] [address] Surgeon Neurosurgery 05/25/21 documented as of this encounter
--- OUTSIDE RECORDS SUMMARY | 2024-02-08 13:14 | XMS_ITS | Encounter Summary ---
Author Organization [facility] Address [address] [place], [place] [address] Care Team Providers Care Maintenance Team Member Name Role Phone Amber Bedolla APRN Primary Care Provider [phone]- [phone] Tarik Cadet MD Unavailable [phone] Encounter Details Date Type Department Care Team (Latest Contact Info) Description 12/23/2021 Travel Social History Tobacco Use Types Packs/Day [...] documented as of this encounter Care Teams Maintenance Team Member Relationship Specialty Start Date End Date Amber Bedolla APRN [address] [place] [address] PCP - General 07/18/20 Tarik Cadet MD [id number] [place] [address] Surgeon Neurosurgery 05/25/21 documented as of this encounter
--- OUTSIDE RECORDS SUMMARY | 2024-02-08 13:15 | XMS_ITS | Encounter Summary ---
Author Organization [facility] Address [address] [address] Care Team Providers Care Senior Resident Care Director Name Role Phone Amber Bedolla VIVIENNE Primary Care Provider [phone]- [phone] Tarik Cadet MD Unavailable [phone] Reason for Visit * Reason Onset Date Comments HCN - Patient Message 07/13/2021 reschedule Encounter Details Date Type Department Care Team (Late st Contact Info) Description 07/13/2021 Telephone [place] [facility] [address] [place] [address] Tarik Cadet MD [address] [place] [address] HCN - Patient Message (reschedule) Social History Tobacco Use Types Packs/Day Years [...] encounter Miscellaneous Notes * Telephone Encounter - Melody Mann - 07/13/2021 2:04 PM EDT Patient Phone Message Reason for Call: Pt requesting to reschedule 07/20 appt for early September. Please advise. Best contact number and optimal time of day to reach caller: [phone] Note: Please do not reply to this message. Follow-up communication and further actions as a result of this message need to be communicated with the patient directly, if the patient is not active onMyChart. If the patient is active on MyChart, they will receive notification of the communication/outcome via Nimbit. documented in this encounter Plan of Treatment Not on file documented as of this encounter Visit Diagnoses Not on filedocumented in this encounter Additional Health Concerns Assessment Noted Time A fall risk assessment has been complete d for the patient 07/02/2021 3:14 PM EDT documented as of this encounter Care Teams Senior Resident Care Director Relationship Specialty Start Date End Date Amber Bedolla APRN [facility] [address] PCP - General 07/18/20 Tarik Cadet MD [address] [facility] [address] [place] [address] Surgeon Neurosurgery 05/25/21 documented as of this encounter
--- OUTSIDE RECORDS SUMMARY | 2024-02-08 13:15 | XMS_ITS | Encounter Summary ---
Author Organization [facility] Address [address] [place] [address] Care Team Providers Care Engineering Systems Analyst Name Role Phone Unavailable Primary Care Provider Unavailabl e Encounter Details Date Type Department Care Team (Late st Contact Info) Description 10/20/2022 Abstract [facility] Gastroenterology [address] [facility] [address] [place] [address] Dulce Liz MD [address] [facility] [address] [place] [address] Social History Tobacco Use Types Packs/Day Years Used Date Smoking Tobacco: Never Assessed Comments Unknown Sex and Gender Information Value Date Recorded Sex Assigned at Not on file Legal Sex Female 2:55 PM CDT Gender Identity Not on file Sexual Orientation Not on file documented as of this encounter Plan of Treatment Not on file documented as of this encounter Visit Diagnoses Not on filedocumented in this encounter
--- OUTSIDE RECORDS SUMMARY | 2024-02-08 13:15 | XMS_ITS | Encounter Summary ---
Author Organization [facility] Address [address] [place], [place] [address] Care Team Providers Care Biomedical Engineering Aide Name Role Phone Amber Bedolla APRN Primary Care Provider [phone]- [phone] Tarik Cadet MD Unavailable [phone] Encounter Details Date Type Department Care Team (Latest Contact Info) Description 07/17/2021 Travel Social History Tobacco Use Types Packs/Day [...] suspected to have Coronavirus/COVID-19? No / Unsure 07/17/2021 2:39 PM EDT documented as of this encounter Plan of Treatment Not on file documented as of this encounter Visit Diagnoses Not on filedocumented in this encounter Additional Health Concerns Assessment Noted Time A fall risk assessment has been complete d for the patient 07/02/2021 3:14 PM EDT documented as of this encounter Care Teams Biomedical Engineering Aide Relationship Specialty Start Date End Date Amber Bedolla APRN [address] [place] [address] PCP - General 07/18/20 Tarik Cadet MD [address] [place] [address] Surgeon Neurosurgery 05/25/21 documented as of this encounter
--- OUTSIDE RECORDS SUMMARY | 2024-02-08 13:15 | XMS_ITS | Encounter Summary ---
Author Organization [facility] Address [address] [place] [address] Care Team Providers Care Sanitarian Name Role Phone Amber Bedolla VIVIENNE Primary Care Provider +1- [phone] Encounter Details Date Type Department Care Team (Latest Contact Info) Description 04/16/2021 3:00 PM EST - 04/16/2021 11:59 PM EST Hospital Encounter [facility] [address] [place] [address] Discharge Disposition: Home or Self Care Social History Tobacco Use Types Packs/Day Years Used Date Smoking Tobacco: Never Alcohol Use Standard Drinks/Week Comments [...] Exposure Response Date Recorded In the last month, have you been in contact with someone who was confirmed or suspected to have Coronavirus / COVID-19? No / Unsure 04/16/2021 1:30 PM EST documented as of this encounter [...] morning. 04/07/2020 cyclobenzaprine (Flexeril) 10 MG tablet 08/14/2020 2 diclofenac (Voltaren) 75 MG EC tablet Take 75 mg by mouth 2 (two) times a day. 03/23/2021 2 ibuprofen 600 MG tablet 3 (three) times a day. 11/11/2020 2 terbinafine (LamISIL) 250 MG tablet 12/22/2020 2 valACYclovir (Valtrex) 1 g tablet Take 1,000 mg by mouth 1 (one) time each day. 02/09/2021 2 documented as of this encounter Plan of Treatment Not on file documented as of this encounter Procedures Procedure Name Priority Date/Time Associated Diagnosis Comments XR SHOULDER RIGHT 2+ VIEWS Routine 04/16/2021 3:06 PM EST Right shoulder pain, unspecified chronicity documented in this encounter Results * XR Shoulder Right 2+ Views (04/16/2021 3:06 PM EST) Anatomical Region Laterality Modality Upper Extremities, Shoulder Right Digi leidy Radiography Impressions 04/16/2021 3:35 PM EST Sclerosis and irregularity of the greater tuberosity with narrowing of the subacromial space. CRITICAL RESULT: ?? No. COMMUNICATION: Per this written report. Dictated by Chris Salas on 04/16/2021 3:33 PM Signed by Chris Salas on 04/16/2021 3:35 PM Narrative 04/16/2021 3:35 PM EST Exam/Procedure: XR SHOULDER RIGHT 2+ VIEWS ordered by SHADI MAHAJAN, [id number] CLINICAL INDICATION: Pain TECHNIQUE: XR SHOULDER RIGHT 2+ VIEWS COMPARISON: None. FINDINGS: Sclerosis and irregularity of the greater tuberosity with narrowing of the subacromial space. Mild acromioclavicular joint space narrowing. The glenohumeral joint is maintained. Procedure Note Chris Salas MD - 04/16/2021 Exam/Procedure: XR SHOULDER RIGHT 2+ VIEWS ordered by SHADI MAHAJAN,[id number] CLINICAL INDICATION: Pain TECHNIQUE: XR SHOULDER RIGHT 2+ VIEWS COMPARISON: None. FINDINGS: Sclerosis and irregularity of the greater tuberosity with narrowing of thesubacromial space. Mild acromioclavicular joint space narrowing. Theglenohumeral joint is maintained. IMPRESSION: Sclerosis and irregularity of the greater tuberosity with narrowing of thesubacromial space. CRITICAL RESULT: No. COMMUNICATION: Per this written report. Dictated by Chris Salas on 04/16/2021 3:33 PM Signed by Chris Salas on 04/16/2021 3:35 PM Shadi Mahajan MD IMG XR PROCEDURES Final Result documented in this encounter Visit Diagnoses Not on filedocumented in this encounter Additional Health Concerns Assessment Noted Time A fall risk assessment has been complete d for the patient 04/16/2021 2:49 PM EST documented as of this encounter Care Teams Sanitarian Relationship Specialty Start Date End Date Amber Bedolla APRN [address] [place] [address] PCP - General 07/18/20 documented as of this encounter
--- OUTSIDE RECORDS SUMMARY | 2024-02-08 13:15 | XMS_ITS | Encounter Summary ---
Author Organization [facility] Address [address] [place] [address] Care Team Providers Care Coach Wirer Name Role Phone Amber Bedolla APRN Primary Care Provider [phone]- [phone] Encounter Details Date Type Department Care Team (Latest Contact Info) Description 05/20/2021 Travel Social History Tobacco Use Types Packs/Day [...] have Coronavirus / COVID-19? No / Unsure 05/20/2021 2:36 PM EDT documented as of this encounter Plan of Treatment Not on file documented as of this encounter Visit Diagnoses Not on filedocumented in this encounter Additional Health Concerns Assessment Noted Time A fall risk assessment has been complete d for the patient 04/30/2021 10:52 AM EST documented as of this encounter Care Teams Coach Wirer Relationship Specialty Start Date End Date Amber Bedolla APRN [address] [place] [address] PCP - General 07/18/20 documented as of this encounter
--- OUTSIDE RECORDS SUMMARY | 2024-02-08 13:15 | XMS_ITS | Encounter Summary ---
Author Organization [facility] Address [address] [place], [place] [address] Care Team Providers Care Hybrid Powertrain Development Engineer Name Role Phone Amber Bedolla APRN Primary Care Provider [phone]- [phone] Tarik Cadet MD Unavailable [phone] Encounter Details Date Type Department Care Team (Latest Contact Info) Description 05/25/2021 Travel Social History Tobacco Use Types Packs/Day [...] have Coronavirus / COVID-19? No / Unsure 05/25/2021 8:22 AM EDT documented as of this encounter Plan of Treatment Not on file documented as of this encounter Visit Diagnoses Not on filedocumented in this encounter Additional Health Concerns Assessment Noted Time A fall risk assessment has been complete d for the patient 05/25/2021 9:03 AM EDT documented as of this encounter Care Teams Hybrid Powertrain Development Engineer Relationship Specialty Start Date End Date Amber Bedolla APRN [address] [place] [address] PCP - General 07/18/20 Tarik Cadet MD [address] [place] [address] Surgeon Neurosurgery 05/25/21 documented as of this encounter
--- OUTSIDE RECORDS SUMMARY | 2024-02-08 13:15 | XMS_ITS | Encounter Summary ---
Author Organization [facility] Address [address] [place] [address] Care Team Providers Care Motor Vehicle Compliance Analyst Name Role Phone Amber Bedolla APRN Primary Care Provider [phone]- [phone] Encounter Details Date Type Department Care Team (Latest Contact Info) Description 04/28/2021 Travel Social History Tobacco Use Types Packs/Day [...] have Coronavirus / COVID-19? No / Unsure 04/28/2021 11:26 AM EST documented as of this encounter Plan of Treatment Not on file documented as of this encounter Visit Diagnoses Not on filedocumented in this encounter Additional Health Concerns Assessment Noted Time A fall risk assessment has been complete d for the patient 04/16/2021 2:49 PM EST documented as of this encounter Care Teams Motor Vehicle Compliance Analyst Relationship Specialty Start Date End Date Amber Bedolla APRN [address] [place] [address] PCP - General 07/18/20 documented as of this encounter
--- OUTSIDE RECORDS SUMMARY | 2024-02-08 13:15 | XMS_ITS | Encounter Summary ---
Author Organization [facility] Address [address] [id number] Care Team Providers Care Mult Au Matic Operator Name Role Phone Amber Bedolla VIVIENNE Primary Care Provider +1- [phone] Reason for Visit * Reason Comments Pain Encounter Details Date Type Department Care Team (Late st Contact Info) Description 04/16/2021 3:00 PM EST Office Visit [facility] Orthopaedic Surgery & Sports Medicine [address], [address] [place] [address] Nya Mahajan MD [address] [place] [address] Right shoulder pain, unspecified chronicity (Primary Dx); Traumatic incomplete tear of right rotator cuff, initial encounter Social History Tobacco Use Types Packs/Day [...] Sign Reading Time Taken Comments Blood Pressure 173/75 04/16/2021 2:48 PM EST Pulse - - Temperature - - Respiratory Rate - - Oxygen Saturation 100% 04/16/2021 2:48 PM EST Inhaled Oxygen Concentration - - Weight 79.4 kg (175 lb) 04/16/2021 2:48 PM EST Height 161.3 cm (5' 3.5 ) 04/16/2021 2:48 PM EST Body Mass Index 30.51 04/16/2021 2:48 PM EST documented in this encounter Miscellaneous Notes * Progress Notes - Wes Chapa MD - 04/16/2021 3:00 PM EST History of present illness: Nory Ceja is a 66 y.o. female who presents with a 9 month history of right shoulder pain. The patient states she hurt her right arm landing after a fall 9 months ago. Since that time, she has been doing home directed therapy exercises to regain full range of motion and regain partial strength. 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 She denies any previous injections or surgeries to her right shoulder. She has difficulty sleeping on her right side due to pain. She has been taking ulhb-lns-ezwanyi ibuprofen regularly without relief. I have reviewed and updated the patient's [...] X-Rays: Three views right shoulder ordered, obtained, reviewed and demonstrates no acute bony abnormalities. There is no superior migration of the humeral head and there is well-maintained glenohumeral jointspace. Assessment/Plan 66-year-old female with right shoulder pain status post fall 9 months ago, concern for rotator cufftear -We discussed treatment options. Due to the patient's lack of improvement with extensive nonoperative treatment including over 6 weeks of home directed therapy exercises and ornj-won-cumtxjn ibuprofen, we will order an MRI to further assess the patient's rotator cuff and other shoulder structures. Will follow-up after her MRI to go over the results and update her treatment plan. In the meantime, s he will continue to work on maintaining range of motion and improving her strength. All of her questions were answered in office today. Wes Chapa MD Orthopedic Sports Medicine Fellow 04/16/2021 3:43 PM Cosigned by Nya Mahajan MD at 04/18/2021 1:10 PM EST Associated attestation - Nya Mahajan MD - 04/18/2021 1:10 PM EST I saw and evaluated the [...] XR SHOULDER RIGHT 2+ VIEWS ordered by NYA MAHAJAN [id number] CLINICAL INDICATION: Pain TECHNIQUE: XR SHOULDER RIGHT 2+ VIEWS COMPARISON: None. FINDINGS: Sclerosis and irregularity of the greater tuberosity with narrowing of the subacromial space. Mild acromioclavicular joint space narrowing. The glenohumeral joint is maintained. Procedure Note Chris Salas MD - 04/16/2021 Exam/Procedure: XR SHOULDER RIGHT 2+ VIEWS ordered by NYA [id number] CLINICAL INDICATION: Pain TECHNIQUE: XR SHOULDER RIGHT [...] by Chris Salas on 04/16/2021 3:35 PM Nya Mahajan MD IMG XR PROCEDURES Final Result documented in this encounter Visit Diagnoses Diagnosis Right shoulder pain, unspecified chronicity- Primary Traumatic incomplete tear of right rotator cuff, initial encounter documented in this encounter Additional Health Concerns Assessment Noted Time A fall risk assessment has been complete d for the patient 04/16/2021 2:49 PM EST documented as of this encounter Care Teams Mult Au Matic Operator Relationship Specialty Start Date End Date Amber Bedolla APRN [address] [place] [address] PCP - General 07/18/20 documented as of this encounter
--- OUTSIDE RECORDS SUMMARY | 2024-02-08 13:15 | XMS_ITS | Encounter Summary ---
Author Organization [facility] Address [address] [place] [address] Care Team Providers Care Business Line Manager Name Role Phone Amber Bedolla Antonio PALAFOX Primary Care Provider +1- [phone] Tarik Cadet MD Unavailable Reason for Visit * Reason Comments Injections * Other Medical (Routine) - Closed Specialty Diagnoses / Procedures Referred By Contac t Referred To Contact Pain Medicine Diagnoses Other spondylosis, lumbosacral region Procedures Facet MBB - Lumbar Maria E Heredia APRN [address] [facility] [address] [place] [address] Phone: tel: fax: [facility] [address] [place] [address] Phone: tel: fax: Referral ID Status Reason Start Date Expiration Date Visits Re quested Visits Authorized [id number] Closed 07/02/2021 01/01/2023 1 1 Encounter Details Date Type Department Care Team (Late st Contact Info) Description 07/20/2021 9:30 AM EDT Procedure Visit [facility] [address] [place] [id number] Ravi Salguero MD [address] [facility] [address] [place] [address] Spondylosis of lumbosacral region without myelopathy or radiculopathy (Primary Dx); Other spondylosis, lumbosacral region Social History Tobacco Use Types Packs/Day [...] Sign Reading Time Taken Comments Blood Pressure 160/72 07/20/2021 9:51 AM EDT Pulse 74 07/20/2021 9:51 AM EDT Temperature 35.9 ??C (96.6 ??F) 07/20/2021 9:21 AM ED T Respiratory Rate 20 07/20/2021 9:51 AM EDT Oxygen Saturation 99% 07/20/2021 9:51 AM EDT Inhaled Oxygen Concentration - - Weight - - Height - - Body Mass Index - - documented in this encounter Miscellaneous Notes * Clinician Note - Ricardo Us RN - 07/20/2021 9:30 AM EDT Patient ID: Nory Ceja is a 66 y.o. female. Procedure: Lumbar Facet MBB Pre-Procedure Pre-Procedure Checklist Procedure verified with patient/guardian: yes Consent signed, dated, timed, and present: yes History and Physical performed: yes Nursing Assessment performed: yes Pre-Procedure/Sedation Assessment and Plan performed: yes Discharge instructions reviewed with patient/guardian: yes Plan of Care reviewed with patient/guardian: yes Patient's/Guardian's questions addressed: yes Pre-Procedure Questions Review of Systems General appearance: normal Oropharynx: normal Respiratory effort: normal Auscultation of lungs: normal Auscultation of heart: normal Abdomen: normal Mobility: normal Skin: normal Orientation to person, time, and place: normal Mood and affect: normal Intra-Procedure Prep & Positioning The patient was prepped and draped in usual sterile fashion and placed in a prone position. Time Out A timeout was called at 9:46 AM, immediately prior to the procedure, in accordance with [facility] policy. Procedure Start Time: 9:48 AM Procedure End Time: 9:50 AM Fluoro Time: 10 seconds Fluoro Dose: 3.02 mGy Post-Procedure Discharge Status Orientation to person, time, and place: normal Mood and affect: normal Discharge disposition: home Mode of exit: walked @10:05 AM Patient verbalizes understanding of follow-up appointments, post-procedure care, and medications. * Progress Notes - Ralph Toth MD - 07/20/2021 9:30 AM EDTAssociated Order(s): Facet MBB - Lumbar Patient ID: Nory Ceja is a 66 y.o. female. Encounter Diagnoses Name Primary? Other spondylosis, lumbosacral region ??? Spondylosis of lumbosacral region without myelopathy or radiculopathy Yes Facet MBB - Lumbar Performed by: Ralph Toth MD Authorized by: Maria E Heredia APRN [place] protocol: Attending Supervision?: yes Procedure(s): Left L4, L5, ALA Medial Branch Block #1 Anesthesia Type: Local Complications: none Follow-up Plan: Procedure or clinic follow up based on pain relief Procedure: This patient was seen earlier for a comprehensive evaluation of their painful condition.After discussing treatment options, the patient elected to proceed with a lumbar medial branch block. Written, informed consent was obtained before the start of the procedure. The patient's history of present illness, past medical history (including current medications and allergies), and physical examination were reviewed with the patient immediately before the procedure, and it was confirmed directly with the patient that they desired to proceed. The patient ambulated to the operating room and was placed in the prone position with pressure points padded. A time out was performed, confirming the patient's identification, allergy status, the side(s) of the procedure, and the procedure(s) to be performed. All operators were wearing hats, masksand sterile gloves. The patient underwent ChloraPrep skin prep followed by sterile drape. At each level mentioned above, the needle insertion site for the medial branch blocks was identified by fluoroscopy and marked. The patient received: 1% lidocaine subcutaneously. Under fluoroscopic guidance using a coaxial approach, a 22 g 3.5 inch was advanced until the needle tip contacted the transverse process immediately lateral to the pedicle at each level. Appropriate positioning of each needle tip was confirmed by fluoroscopy in the lateral view. 0.5 mL of contrast dye was injected and did not reveal any intravascular of intrathecal uptake. It confirmed appropriate spread along the medial branch. 0.5 mL of 2% lidocaine was injected through each needle. The stylette was replaced in each needle, then each needle was withdrawn. Sterile bandages was applied over the puncture sites. Following completion of the procedure, the patient was transported to the PACU, then was later discharged in stable condition. Patient Reports 80 % pain relief following the procedure. Cosigned by Ravi Salguero MD at 07/29/2021 7:28 AM EDT Associated attestation - Ravi Salguero MD - 07/29/2021 7:28 AM EDT I was present for the entirety of the procedure(s). documented in this encounter Plan of Treatment Not on file documented as of this encounter Procedures Procedure Name Priority Date/Time Associated Diagnosis Comments VT INJ DX/THER AGNT PARAVERT FACET JOINT,IMG GUIDE,LUMBAR/SAC, 2ND LEVEL Routine 07/20/2021 9:30 AM EDT Other spondylosis, lumbosacral region VT INJ DX/THER AGNT PARAVERT FACET JOINT,IMG GUIDE,LUMBAR/SAC, 1ST LEVEL Routine 07/20/2021 9:30 AM EDT Other spondylosis, lumbosacral region documented in this encounter Results * VT INJ DX/THER AGNT PARAVERT FACET JOINT,IMG GUIDE,LUMBAR/SAC, 1ST LEVEL, VT INJ DX/THER AGNT PARAVERT FACET JOINT,IMG GUIDE,LUMBAR/SAC, 2ND LEVEL (07/20/2021 9:30 AM EDT) Narrative Ravi Salguero MD - 07/20/2021 9:30 AM EDT Ralph Toth MD ? 07/27/2021 ??8:24 AM Facet MBB - Lumbar Performed by: Ralph Toth MD Authorized by: Maria E Heredia APRN [place] protocol: ??Attending Supervision?: yes ?? us Maria E Heredia APRN IN CLINIC/BEDSIDE ORDERABL ES Edited Result - Final documented in this encounter Visit Diagnoses Diagnosis Spondylosis of lumbosacral region without myelopathy or radiculopathy- Primary Other spondylosis, lumbosacral region documented in this encounter Administered Medications Inactive Administered Medications - up to 3 most recent administrations Medication Order MAR Action Action Date Dose Rate Site bupivacaine PF (Marcaine) 0.25 % injection 25 mg 25 mg (10 mL), Injection, Once, 1 dose, On Tue07/20/21 at 1015, RoutineIndications:Other spondylosis, lumbosacral region Given by Other 07/20/2021 9:48 AM EDT 25 mg lidocaine PF (Xylocaine) 1 % injection 300 mg 300 mg (30 mL), Injection, Once, 1 dose, On Tue07/20/21 at 1015, RoutineIndications:Other spondylosis, lumbosacral region Given by Other 07/20/2021 9:48 AM EDT 300 mg sodium bicarbonate 8.4 % injection 50 mEq 50 mEq, Intravenous, Once, 1 dose, On Tue07/20/21 at 1015, RoutineIndications:Other spondylosis, lumbosacral region Given by Other 07/20/2021 9:48 AM EDT 50 mEq documented in this encounter Additional Health Concerns Assessment Noted Time A fall risk assessment has been complete d for the patient 07/20/2021 9:21 AM EDT documented as of this encounter Care Teams Business Line Manager Relationship Specialty Start Date End Date Amber Bedolla APRN [facility] [address] [address] PCP - General 07/18/20 Tarik Cadet MD [address] [address] Surgeon Neurosurgery 05/25/21 documented as of this encounter
--- OUTSIDE RECORDS SUMMARY | 2024-02-08 13:15 | XMS_ITS | Referral Summary ---
Author Organization [facility] Address [address] [place] [address] Care Team Providers Care Tube Skiver Name Role Phone Unavailable Primary Care Provider Unavailabl e Social History Tobacco Use Types Packs/Day Years Used Date Smoking Tobacco: Never Assessed Interpersonal Safety Answer Date Record ed Family or friends hurt you Not on file 03/26 Family or friends insult you Not on file Family or friends threaten you Not on file 0 03/26/2023 Family or friends scream or curse at you Not on file 03/26/2023 Housing Stability Answer Date Recorded Living situation today Not on file Living situation problems Not on file 2023 Food Insecurity Answer Date Recorded Food run out past 12 months Not on file 03/08 Food did not last past 12 months Not on file 03/26/2023 Employment Answer Date Recorded Help finding and keeping a job Not on file 0 03/26/2023 Family and Community Support Answer Jeffrey e Recorded Help with Day to Day Activities Not on file 03/26/2023 Feeling Lonely or Isolated Not on file 03/26 Educational Attainment Answer Date Rober rded Speak language other than Icelandic at home Not on file 03/26/2023 Want help with school or training Not on file 03/26/2023 Depression Answer Date Recorded PHQ-2 Risk Not on file 03/26/2023 Disabilities Answer Date Recorded Difficulty concentrating Not on file 024 Difficulty doing errands alone Not on file 0 03/26/2023 Substance Use Answer Date Recorded Used prescription meds for non-medical reasons N ot on file 03/26/2023 Used illegal drugs past 12 months Not on file 03/26/2023 Comments Unknown Sex and Gender Information Value Date Recorded Sex Assigned at Not on file Legal Sex Female 2:55 PM CDT Gender Identity Not on file Sexual Orientation Not on file Plan of Treatment Not on file Insurance MEDICARE PART A B
--- OUTSIDE RECORDS SUMMARY | 2024-02-08 13:15 | XMS_ITS | Encounter Summary ---
Author Organization [facility] Address [address] [place], [place] [id number] Care Team Providers Care Marine Equipment Test Engineer Name Role Phone Amber Bedolla APRN Primary Care Provider [phone]- [phone] Tarik Cadet MD Unavailable [phone] Encounter Details Date Type Department Care Team (Latest Contact Info) Description 07/02/2021 Travel Social History Tobacco Use Types Packs/Day [...] suspected to have Coronavirus/COVID-19? No / Unsure 07/01/2021 10:14 PM EDT documented as of this encounter Plan of Treatment Not on file documented as of this encounter Visit Diagnoses Not on filedocumented in this encounter Additional Health Concerns Assessment Noted Time A fall risk assessment has been complete d for the patient 07/02/2021 3:14 PM EDT documented as of this encounter Care Teams Marine Equipment Test Engineer Relationship Specialty Start Date End Date Amber Bedolla APRN [address] [place] [address] PCP - General 07/18/20 Tarik Cadet MD [id number] [place] [address] Surgeon Neurosurgery 05/25/21 documented as of this encounter
--- OUTSIDE RECORDS SUMMARY | 2024-02-08 13:15 | XMS_ITS | Encounter Summary ---
Author Organization [facility] Address [address] [place] [address] Care Team Providers Care Bridge/Structure Inspection Team Leader Name Role Phone Amber Bedolla APRN Primary Care Provider [phone]- [phone] Encounter Details Date Type Department Care Team (Latest Contact Info) Description 04/30/2021 Travel Social History Tobacco Use Types Packs/Day [...] have Coronavirus / COVID-19? No / Unsure 04/30/2021 9:12 AM EST documented as of this encounter Plan of Treatment Not on file documented as of this encounter Visit Diagnoses Not on filedocumented in this encounter Additional Health Concerns Assessment Noted Time A fall risk assessment has been complete d for the patient 04/30/2021 10:52 AM EST documented as of this encounter Care Teams Bridge/Structure Inspection Team Leader Relationship Specialty Start Date End Date Amber Bedolla APRN [address] [place] [address] PCP - General 07/18/20 documented as of this encounter
--- OUTSIDE RECORDS SUMMARY | 2024-02-08 13:15 | XMS_ITS | Encounter Summary ---
Author Organization [facility] Address [address] [place], [place] [id number] Care Team Providers Care Gas Regulator Repairer Name Role Phone Amber Bedolla APRN Primary Care Provider [phone]- [phone] Tarik Cadet MD Unavailable [phone] Encounter Details Date Type Department Care Team (Latest Contact Info) Description 05/26/2021 Travel Social History Tobacco Use Types Packs/Day [...] have Coronavirus / COVID-19? No / Unsure 05/26/2021 10:16 PM EDT documented as of this encounter Plan of Treatment Not on file documented as of this encounter Visit Diagnoses Not on filedocumented in this encounter Additional Health Concerns Assessment Noted Time A fall risk assessment has been complete d for the patient 05/25/2021 9:03 AM EDT documented as of this encounter Care Teams Gas Regulator Repairer Relationship Specialty Start Date End Date Amber Bedolla APRN [address] [place] [address] PCP - General 07/18/20 Tarik Cadet MD [address] [facility] [address] [place] [address] Surgeon Neurosurgery 05/25/21 documented as of this encounter
--- OUTSIDE RECORDS SUMMARY | 2024-02-08 13:15 | XMS_ITS | Encounter Summary ---
Author Organization [facility] Address [address] [place] [address] Care Team Providers Care Sock And Stocking Ironer Name Role Phone Amber Bedolla APRN Primary Care Provider [phone]- [phone] Tarik Cadet MD Unavailable Encounter Details Date Type Department Care Team (Latest Contact Info) Description 07/01/2021 Travel Social History Tobacco Use Types Packs/Day [...] has been complete d for the patient 05/29/2021 10:36 AM EDT documented as of this encounter Care Teams Sock And Stocking Ironer Relationship Specialty Start Date End Date Amber Bedolla APRN [address] [place] [address] PCP - General 07/18/20 Tarik Cadet MD [id number] [place] [address] Surgeon Neurosurgery 05/25/21 documented as of this encounter
--- OUTSIDE RECORDS SUMMARY | 2024-02-08 13:15 | XMS_ITS | Encounter Summary ---
Author Organization [facility] Address [address] [place], [place] [address] Care Team Providers Care Terminal Carman Name Role Phone Amber Bedolla VIVIENNE Primary Care Provider [phone]- [phone] Reason for Visit * Reason Onset Date Comments HCN - Patient Message 04/23/2021 Encounter Details Date Type Department Care Team (Late st Contact Info) Description 04/23/[address] [facility] Orthopaedic Surgery & Sports Medicine [address] [place] [address] Shadi Mims MD [address] [place] [address] HCN - Patient Message Social History Tobacco [...] encounter Miscellaneous Notes * Telephone Encounter - Vero Fry - 04/23/2021 3:12 PM EST Patient scheduled and notified. * Telephone Encounter - Lang Mackenzie - 04/23/2021 12:09 PM EST Patient Phone Message Reason for Call: Patient of Dr. Mims. Patient states she was to have an MRI before appointment and has only had an X-Ray. Please advise. Best contact number and optimal time of day to reach caller: [phone] Note: Please do not reply to this message. Follow-up communication and further actions as a result of this message need to be communicated with the patient directly, if the patient is not active onMyChart. If the patient is active on MyChart, they will receive notification of the communication/outcome via [employer]. documented in this encounter Plan of Treatment Not on file documented as of this encounter Visit Diagnoses Not on filedocumented in this encounter Additional Health Concerns Assessment Noted Time A fall risk assessment has been complete d for the patient 04/16/2021 2:49 PM EST documented as of this encounter Care Teams Terminal Carman Relationship Specialty Start Date End Date Amber Bedolla APRN [facility] [place] [address] PCP - General 07/18/20 documented as of this encounter
--- OUTSIDE RECORDS SUMMARY | 2024-02-08 13:15 | XMS_ITS | Encounter Summary ---
Author Organization [facility] Address [address] [place] [address] Care Team Providers Care Artist Suspect Name Role Phone Amber Bedolla Antonio PALAFOX Primary Care Provider [phone]- [phone] Reason for Referral * Imaging (Routine) - Closed Specialty Diagnoses / Procedures Referred By Baltazar marie Referred To Contact Radiology Diagnoses Traumatic incomplete tear of right rotator cuff, initial encounter Procedures MR Shoulder Right wo IV Contrast Nya Mahajan MD [address] [address] Phone: tel: fax: Referral ID Status Reason Start Date Expiration Date Visits Re quested Visits Authorized [id number] Closed 04/23/2021 10/23/2022 1 1 Reason for Visit * Imaging (Routine) - Closed Specialty Diagnoses / Procedures Referred By Baltazar marie Referred To Contact Radiology Diagnoses Traumatic incomplete tear of right rotator cuff, initial encounter Procedures MR Shoulder Right wo IV Contrast [facility]ya [facility]ajan [facility] [address] Phone: tel: fax: Referral ID Status Reason Start Date Expiration Date Visits Re quested Visits Authorized [id number] Closed 04/23/2021 10/23/2022 1 1 Encounter Details Date Type Department Care Team (Latest Contact Info) Description 04/30/2021 9:13 AM EST - 04/30/2021 11:59 PM EST Hospital Encounter [facility] MRI [address] [place] [address] Traumatic incomplete tear of right rotator cuff, initial encounter Discharge Disposition: Home or Self Care [...] AM EST documented as of this encounter Discharge Instructions * Discharge Instructions* Ugo Myers - 04/30/2021 9:34 AM EST documented in this encounter Medications at Time [...] MR SHOULDER RIGHT WO IV CONTRAST Routine 04/30/2021 9:46 AM EST Traumatic incomplete tear of right rotator cuff, initial encounter documented in this encounter Results * MR Shoulder Right wo IV Contrast (04/30/2021 9:46 AM EST) Anatomical Region Laterality Modality Upper Extremities Right Magnetic Reson ance Impressions 04/30/2021 11:44 AM EST Complete retracted supraspinatus and infraspinatus tendon tears with torn fibers retracted to the glenohumeral joint. Resultant cranial subluxation of the humeral head relative to the glenoid with severe subacromial space narrowing. Severe AC joint osteoarthrosis. Mild supraspinatus and infraspinatus atrophy. Mild intra-articular long head biceps tendinosis. Moderate subscapularis tendinosis. CRITICAL RESULT: ?? No. COMMUNICATION: Per this written report. By electronically signing this report, I, the attending physician, attest that I have personally reviewed the images/data for the above examination(s) and agree with the final edited report. Dictated by Kelsea Combs on 04/30/2021 10:27 AM Signed by Cyril Stacy on 04/30/2021 11:44 AM Narrative 04/30/2021 11:44 AM EST Exam/Procedure: MR SHOULDER RIGHT WO IV CONTRAST ordered by NYA MAHAJAN, [id number] CLINICAL INDICATION: Trauma, rotator cuff tear suspected. Right arm injury after fall 9 months ago. TECHNIQUE: Axial proton density, coronal proton density, coronal T2 FS, sagittal T2 FS, sagittal T1. COMPARISON: Right shoulder radiographs 04/16/2021. FINDINGS: ?? Tendons/Muscles: Full width tear of the of the supraspinatus tendon with torn fibers retracted to the glenohumeral joint. Cranial subluxation of the humeral head relative to the glenoid with severe subacromial space narrowing. Mild supraspinatus and infraspinatus muscle atrophy. Full-thickness full width infraspinatus tendon tear with torn fibers retracted to the glenohumeral joint. Fluid in the subacromial subdeltoid bursa. Moderate subscapularis tendinosis with mild fraying of the articular sided fibers. Mild intra-articular long head biceps tendinosis. Labrum: Diffuse degeneration of the labrum without evidence of acute tear. There is no paralabral cyst. Cartilage: The cartilage is smoothly congruent throughout the joint space without focal deficits or osteochondral defect (OCD). Bones and Joints: Mild joint space narrowing of the glenohumeral joint. Severe osteoarthrosis of the acromioclavicular joint with osteophytosis and capsular hypertrophy. Subacromial enthesopathy with edema and cystic change in the acromion. Mild greater tuberosity enthesopathy. Subchondral cyst formation within the distal clavicle. Soft Tissues: The quadrilateral space, spinoglenoid notch and suprascapular notch are normal in signal with no evidence of space occupying mass. Mild heterogeneity of the axillary pouch without edema in the rotator interval. Trace glenohumeral joint effusion. Procedure Note Cyril Stacy MD - 04/30/2021 Exam/Procedure: MR SHOULDER RIGHT WO IV CONTRAST ordered by NYA MAHAJAN,[id number] CLINICAL INDICATION: Trauma, rotator cuff tear suspected. Right arm injury after fall 9 monthsago. TECHNIQUE: Axial proton density, coronal proton density, coronal T2 FS, sagittal T2FS, sagittal T1. COMPARISON: Right shoulder radiographs 04/16/2021. FINDINGS: Tendons/Muscles: Full width tear of the of the supraspinatus tendon withtorn fibers retracted to the glenohumeral joint. Cranial subluxation ofthe humeral head relative to the glenoid with severe subacromial spacenarrowing. Mild supraspinatus and infraspinatus muscle atrophy.Full-thickness full width infraspinatus tendon tear with torn fibersretracted to the glenohumeral joint. Fluid in the subacromial subdeltoidbursa. Moderate subscapularis tendinosis with mild fraying of thearticular sided fibers. Mild intra-articular long head bicepstendinosis. Labrum: Diffuse degeneration of the labrum without evidence of acute tear.There is no paralabral cyst. Cartilage: The cartilage is smoothly congruent throughout the joint spacewithout focal deficits or osteochondral defect (OCD). Bones and Joints: Mild joint space narrowing of the glenohumeral joint.Severe osteoarthrosis of the acromioclavicular joint with osteophytosisand capsular hypertrophy. Subacromial enthesopathy with edema and cysticchange in the acromion. Mild greater tuberosity enthesopathy. Subchondralcyst formation within the distal clavicle. Soft Tissues: The quadrilateral space, spinoglenoid notch andsuprascapular notch are normal in signal with no evidence of spaceoccupying mass. Mild heterogeneity of the axillary pouch without edema inthe rotator interval. Trace glenohumeral joint effusion. IMPRESSION: Complete retracted supraspinatus and infraspinatus tendon tears with tornfibers retracted to the glenohumeral joint. Resultant cranial subluxation of the humeral head relative to the glenoidwith severe subacromial space narrowing. Severe AC joint osteoarthrosis. Mild supraspinatus and infraspinatus atrophy. Mild intra-articular long head biceps tendinosis. Moderate subscapularis tendinosis. CRITICAL RESULT: No. COMMUNICATION: Per this written report. By electronically signing this report, I, the attending physician, gonzalez I have personally reviewed the images/data for the aboveexamination(s) and agree with the final edited report. Dictated by Kelsea Combs on 04/30/2021 10:27 AM Signed by Cyril Stacy on 04/30/2021 11:44 AM Nya Mahajan MD IMG MRI PROCEDURES Final Result documented in this encounter Visit Diagnoses Diagnosis Traumatic incomplete tear of right rotator cuff, initial encounter documented in this encounter Additional Health Concerns Assessment Noted Time A fall risk assessment has been complete d for the patient 04/30/2021 10:52 AM EST documented as of this encounter Care Teams Artist Suspect Relationship Specialty Start Date End Date Amber Bedolla APRN [address] [place] [address] PCP - General 07/18/20 documented as of this encounter
--- OUTSIDE RECORDS SUMMARY | 2024-02-08 13:15 | XMS_ITS | Encounter Summary ---
Author Organization [facility] Address [address] [place] [address] Care Team Providers Care Director Nursing Service Name Role Phone Amber Bedolla VIVIENNE Primary Care Provider [phone]- [phone] Reason for Referral * Imaging (Routine) - Closed Specialty Diagnoses / Procedures Referred By Baltazar marie Referred To Contact Radiology Diagnoses Traumatic incomplete tear of right rotator cuff, initial encounter Procedures MR Shoulder Right wo IV Contrast Nya Mahajan MD [address] [place] [address] Phone: tel: fax: Referral ID Status Reason Start Date Expiration Date Visits Re quested Visits Authorized [id number] Closed 04/23/2021 10/23/2022 1 1 Encounter Details Date Type Department Care Team (Late st Contact Info) Description 04/23/2021 Orders Only [facility] [address] [place] [address] Wes Chapa MD [address] [place] [address] [id number] Traumatic incomplete tear of right rotator cuff, initial encounter (Primary Dx) Social History Tobacco Use [...] WO IV CONTRAST ordered by NYA MAHAJAN, [id number] CLINICAL INDICATION: Trauma, rotator cuff tear suspected. [...] RIGHT WO IV CONTRAST ordered by NYA MAHAJAN,[id number] CLINICAL INDICATION: Trauma, rotator cuff tear suspected. [...] incomplete tear of right rotator cuff, initial encounter- Primary Traumatic incomplete tear of right rotator cuff, initial encounter documented in this encounter Additional Health Concerns Assessment Noted Time A fall risk assessment has been complete d for the patient 04/16/2021 2:49 PM EST documented as of this encounter Care Teams Director Nursing Service Relationship Specialty Start Date End Date Amber Bedolla APRN [address] [place] [address] PCP - General 07/18/20 documented as of this encounter
--- OUTSIDE RECORDS SUMMARY | 2024-02-08 13:15 | XMS_ITS | Clinical Summary ---
Author Organization [facility] Address [address] [place] [address] Care Team Providers Care Cad Programmer Name Role Phone Unavailable Primary Care Provider [...] Date Rober rded Speak language other than Latvian at home Not on file 03/26/2023 Want [...]
--- OUTSIDE RECORDS SUMMARY | 2024-02-08 13:15 | XMS_ITS | Encounter Summary ---
Author Organization [facility] Address [address] [place] [address] Care Team Providers Care Master Cook Name Role Phone Amber Bedolla APRN Primary Care Provider [phone]- [phone] Tarik Cadet MD Unavailable [phone] Reason for Referral * Consultation (Routine) - Closed Specialty Diagnoses / Procedures Referred By Contac t Referred To Contact Pain Medicine Diagnoses Anterolisthesis of lumbar spine DDD (degenerative disc disease), lumbar Bilateral low back pain without sciatica, unspecified chronicity Tarik Cadet MD [id number] [place] [address] Phone: tel: fax: [facility] Interventional [facility] Medicine [address] [place] [address] Phone: tel: fax: Referral ID Status Reason Start Date Expiration Date V isits Requested Visits Authorized [id number] Closed Specialty Services Required 05/25/2021 11/24/2022 1 1 Scheduling Instructions Lumbar epidural steroids injections, L4-5 facet injections Reason for Visit * Reason Comments Consult * Consultation (Routine) - Closed Specialty Diagnoses / Procedures Referred By Contac t Referred To Contact Neurosurgery Diagnoses back pain, spinal stenosis and DDD Procedures CONSULT Amber Bedolla APRN [address] [place] [address] Phone: tel: Tarik Cadet MD [address] [address] Phone: tel: fax: Referral ID Status Reason Start Date Expiration Date Visits Re quested Visits Authorized [id number] Closed 05/25/2021 11/24/2022 1 1 Encounter Details Date Type Department Care Team (Late st Contact Info) Description 05/25/2021 9:00 AM EDT Consult [facility] [address] [place] [address] Tarik Cadet MD [address] [address] Anterolisthesis of lumbar spine (Primary Dx); [...] Sign Reading Time Taken Comments Blood Pressure 130/79 05/25/2021 8:59 AM EDT Pulse - - Temperature - - Respiratory Rate - - Oxygen Saturation - - Inhaled Oxygen Concentration - - Weight 79.4 kg (175 lb) 05/25/2021 8:59 AM EDT Height 160 cm (5' 3 ) 05/25/2021 8:59 AM EDT Body Mass Index 31 05/25/2021 8:59 AM EDT documented in this encounter Miscellaneous Notes * Progress Notes - Man Neumann MD - 05/25/2021 9:00 AM EDT We had the pleasure of seeing your patient in our clinic today for Neurosurgical consultation. We personally reviewed approximately 10 pages of new patient referral paperwork that was sent to the clinic. ? ? CC: low back pain ? HPI: The patient is a pleasant 66-year-old woman who presents neurosurgery clinic today for consultation regarding low back pain. 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 She states that recently, her low back pain has been worsening. She describes a tightness across her low back. This radiates somewhat into the left anterior thigh, but stops proximally mid thigh. She is able to point to a specific spot on the left anterior thigh that feels worse (trigger-point). She otherwise denies any symptoms radiating past this point denies any numbness or tingling in the legs. She does not notice any significant difference in her back pain when changing positions (such as upright versus recumbency), but she does state as though she has noticed worsening midline backpain that is altering her posture over the last several years. She denies any significant weakness in her legs especially when walking, but does state that she has some residual weakness in her left l ower extremity secondary to knee and hip replacements. She has had bilateral total knee replacements as well as a left hip replacement, she has completed multiple months worth of physical therapy forthese joints, however has not had formal physical therapy directed at her low back. She has never had lumbar epidural steroid injections. Of note, the patient is scheduled to have a left rotator cuff repair in December of 2021. Review of systems. 14 Point ROS performed. Noncontributory except as indicated above-form completedby patient, reviewed and placed in chart. 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 Current medications and Allergies are noted below. ? Physical Exam: General: No acute distress HEENT: Normocephalic, atraumatic Lungs: Symmetric chest rise, nonlabored breathing MSK: No pain to palpation extremities. Normal passive range of motion Psych: Normal affect Gait: Normal gait Palpation: No tenderness to palpation of neck Neuro: Alert and oriented to person place and time. CN 2-12 grossly intact Muscle Strength: deltoid biceps triceps technology applications consultant Right Arm 5/5 5/5 5/5 5/5 Left Arm 5/5 5/5 5/5 5/5 hip flexion knee extension knee flexion dorsiflexion plantar flexion Right Leg 5/5 5/5 5/5 5/5 5/5 Left Leg 5/5 5/5 5/5 5/5 5/5 Reflexes: patellar ankle Right 1+ 1+ Left 0 1+ Addison's: Negative No clonus Sensation: intact throughout ? Imaging: MRI L-spine: Multilevel degenerative changes most pronounced at the levels of L4-5 and L5-S1 with associated moderate canal stenosis as well as moderate bilateral neuroforaminal stenosis at these levels, overall global alignment on MRI of the lumbar spine is relatively unimpressive X-ray scoliosis series: No significant sagittal imbalance, pelvic incidence 44??, lumbar lordosis is 30??; at L4-5, there is a grade 1 anterolisthesis present; no other significant scoliotic deformity X-ray L-spine: There is a grade 1 spondylolisthesis present at L4-5, however this does not significantly change on flexion and extension imaging Images were personally reviewed and independently interpreted Assessment: The patient is a pleasant 66-year-old woman who presents to neurosurgery clinic today for consultation regarding axial low back pain. She does not have radiculopathy or neurogenic claudication. Her imaging demonstrates a grade 1 anterolisthesis present at L4-5 that is seen on x-ray, that is not seen on recumbent MRI of the lumbar spine. This would suggest that she has instability at this level. This may be a focus for pain generation. The patient has not yet failed conservative measures including lumbar epidural steroid injections and facet injections. We will therefore refer the patient to Interventional Pain for consideration of these. Following this, we will have the patient return to our clinic in 6-8 weeks for further evaluation.? Thank you for allowing us to be a part of your patient's care. Please do not hesitate to contact usat the [facility] if there are any questions or concerns. Man Neumann MD PGY3 Neurosurgery Cosigned by Tarik Cadet MD at 05/25/2021 5:53 PM EDT Associated attestation - Tarik Cadet MD - 05/25/2021 5:53 PM EDT I saw and evaluated the patient with the resident/SHEILA. I personally reviewed the available spinal imaging and historical documentation. I discussed the case with the residents/SHEILA and agree with the findings and plan as documented with the following additions: Nory Ceja is a 66 y.o. female patient presents with chronic progressive axial low back pain and L4-5 spondylolisthesis grade 1. She is able to walk half a mi. She has a shoulder surgery scheduled for December of this year. She has had multiple rounds of physical therapy especially when she had her hip and knees replaced. 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 At this point I think it is reasonable to start with interventional pain management for steroid injections with follow-up in 6-8 weeks to assess her response. I personally spent a total of 60 minutes on this encounter. This time includes face to face with patient, counseling and discussion and/or coordination of care. I spent >50% in [id number] communication with the patient over the diagnosis, treatment options and plan. documented in this encounter Plan of Treatment Scheduled Referrals Name Type Priority Associated Diagnoses Order Schedule Ambulatory referral to Pain Medicine Outpatient Referral Routine Anterolisthesis of lumbar spine DDD (degenerative disc disease), lumbar Bilateral low back pain without sciatica, unspecified chronicity 1 Occurrences starting 05/25/2021 until 11/25/2022 documented as of this encounter Visit Diagnoses [...] documented as of this encounter Care Teams Master Cook Relationship Specialty Start Date End Date Amber Bedolla APRN [id number] [id number] PCP - General 07/18/20 Tarik Cadet MD [address] [address] Surgeon Neurosurgery 05/25/21 documented as of this encounter
--- OUTSIDE RECORDS SUMMARY | 2024-02-08 13:15 | XMS_ITS | Encounter Summary ---
Author Organization [facility] Address [address] [place] [address] Care Team Providers Care Pump Assembler Name Role Phone ChiomaAmber Antonio PALAFOX Primary Care Provider [phone] Tarik Cadet MD Unavailable [phone] Encounter Details Date Type Department Care Team (Latest Contact Info) Description 05/25/2021 8:23 AM EDT - 05/25/2021 11:59 PM EDT Hospital Encounter [facility] Clinic Radiology [address] [place] [address] Lumbar spondylosis Discharge Disposition: Home or Self Care Social [...] have Coronavirus / COVID-19? No / Unsure 05/29/2021 10:32 AM EDT documented as of this encounter Medications at [...] LUMBAR SPINE 2 OR 3 VIEWS Routine 05/25/2021 8:31 AM EDT Lumbar spondylosis documented in this encounter Results * XR Lumbar Spine 2 or 3 Views (05/25/2021 8:31 AM EDT) Anatomical Region Laterality Modality Spine, L-spine Digital Radiogra phy Impressions 05/25/2021 9:29 AM EDT Scoliosis/lumbar spine: Degenerative changes of the cervical, thoracic, and lumbar spine as described above. No abnormal translation noted between flexion and extension views of the lumbar spine. CRITICAL RESULT: ?? No. COMMUNICATION: Per this written report. Dictated by Chris Salas on 05/25/2021 9:26 AM Signed by Chris Salas on 05/25/2021 9:29 AM Narrative 05/25/2021 9:29 AM EDT Exam/Procedure: XR SCOLIOSIS ENTIRE SPINE 2 OR 3 VIEWS, XR LUMBAR SPINE 2 OR 3 VIEWS ordered by KOKO ARAMBULA, [id number] CLINICAL INDICATION: Low back pain TECHNIQUE: XR SCOLIOSIS ENTIRE SPINE 2 OR 3 VIEWS, XR LUMBAR SPINE 2 OR 3 VIEWS COMPARISON: None. FINDINGS: Scoliosis/lumbar spine: 12 rib-bearing thoracic vertebral bodies and 5 lumbar type vertebral bodies are noted. Minimal levocurvature of the superior thoracic spine. Degenerative changes of the cervical spine with grade 1 anterolisthesis of C2 on C3, C3 on C4, C4 on C5 with disc space narrowing and osteophyte formation at C5-C6 and C6-C7. Multilevel disc space narrowing and osteophyte formation in the thoracic spine. Disc space narrowing and osteophyte formation at L5-S1 and L4-L5. Grade 1 anterolisthesis of L4 on L5. Mild retrolisthesis of L3 on L4. No abnormal translation noted between flexion and extension views of lumbar spine. Disc space narrowing and osteophyte formation at L1-L2. Procedure Note Chris Salas MD - 05/25/2021 Exam/Procedure: XR SCOLIOSIS ENTIRE SPINE 2 OR 3 VIEWS, XR LUMBAR SPINE 2OR 3 VIEWS ordered by KOKO ARAMBULA, [id number] CLINICAL INDICATION: Low back pain TECHNIQUE: XR SCOLIOSIS ENTIRE SPINE 2 OR 3 VIEWS, XR LUMBAR SPINE 2 OR 3 VIEWS COMPARISON: None. FINDINGS: Scoliosis/lumbar spine: 12 rib-bearing thoracic vertebral bodies and 5lumbar type vertebral bodies are noted. Minimal levocurvature of thesuperior thoracic spine. Degenerative changes of the cervical spine withgrade 1 anterolisthesis of C2 on C3, C3 on C4, C4 on C5 with disc spacenarrowing and osteophyte formation at C5-C6 and C6-C7. Multilevel discspace narrowing and osteophyte formation in the thoracic spine. Disc spacenarrowing and osteophyte formation at L5-S1 and L4-L5. Grade 1anterolisthesis of L4 on L5. Mild retrolisthesis of L3 on L4. No abnormaltranslation noted between flexion and extension views of lumbar spine.Disc space narrowing and osteophyte formation at L1-L2. IMPRESSION: Scoliosis/lumbar spine: Degenerative changes of the cervical, thoracic,and lumbar spine as described above. No abnormal translation noted betweenflexion and extension views of the lumbar spine. CRITICAL RESULT: No. COMMUNICATION: Per this written report. Dictated by Chris Salas on 05/25/2021 9:26 AM Signed by Chris Salas on 05/25/2021 9:29 AM Koko BURGER IMG XR PROCEDURES Final Result documented in this encounter Visit Diagnoses Diagnosis Lumbar spondylosis Lumbosacral spondylosis without myelopathy documented in this encounter Additional Health Concerns Assessment Noted Time A fall risk assessment has been complete d for the patient 05/25/2021 9:03 AM EDT documented as of this encounter Care Teams Pump Assembler Relationship Specialty Start Date End Date Amber Bedolla APRN [facility] [place] [address] PCP - General 07/18/20 Tarik Cadet MD [id number] [place] [address] Surgeon Neurosurgery 05/25/21 documented as of this encounter
--- OUTSIDE RECORDS SUMMARY | 2024-02-08 13:15 | XMS_ITS | Encounter Summary ---
Author Organization Healthcare Address [address] [place] [address] Care Team Providers Care Animal Attendants And Trainers Name Role Phone ChiomaAmber barrios Antonio PALAFOX Primary Care Provider +1- [phone] Tarik Cadet MD Unavailable [phone] Encounter Details Date Type Department Care Team (Latest Contact Info) Description 05/25/2021 8:20 AM EDT - 05/25/2021 8:22 AM EDT Hospital En[facility] [address], [address] [place] [address] Lumbar spondylosis Discharge Disposition: Home [...] ENTIRE SPINE 2 OR 3 VIEWS Routine 05/25/2021 8:46 AM EDT Lumbar spondylosis documented in this encounter Results * XR Scoliosis Entire Spine 2 or 3 Views (05/25/2021 8:46 AM EDT) Anatomical Region Laterality Modality Spine Digital Radiogra phy Impressions 05/25/2021 9:29 AM [...] OR 3 VIEWS ordered by KOKO ARAMBULA, [id number] CLINICAL INDICATION: Low back pain TECHNIQUE: XR [...] 2OR 3 VIEWS ordered by KOKO ARAMBULA, [id number] CLINICAL INDICATION: Low back pain TECHNIQUE: XR [...] documented as of this encounter Care Teams Animal Attendants And Trainers Relationship Specialty Start Date End Date Amber Bedolla APRN [facility] [place] [address] PCP - General 07/18/20 Tarik Cadet MD [address] [address] Surgeon Neurosurgery 05/25/21 documented as of this encounter
--- OUTSIDE RECORDS SUMMARY | 2024-02-08 13:15 | XMS_ITS | Encounter Summary ---
Author Organization [facility] Address [address] [place] [address] Care Team Providers Care Breastfeeding Educator Name Role Phone Amber Bedolla APRN Primary Care Provider [phone]- [phone] Encounter Details Date Type Department Care Team (Latest Contact Info) Description 04/16/2021 Travel Social History Tobacco Use Types Packs/Day [...] documented as of this encounter Care Teams Breastfeeding Educator Relationship Specialty Start Date End Date Amber Bedolla APRN [address] [place] [address] PCP - General 07/18/20 documented as of this encounter
--- OUTSIDE RECORDS SUMMARY | 2024-02-08 13:15 | XMS_ITS | Encounter Summary ---
Author Organization [facility] Address [address] [place], [place] [id number] Care Team Providers Care Underground Miner Name Role Phone Amber Bedolla APRN Primary Care Provider [phone]- [phone] Tarik Cadet MD Unavailable [phone] Encounter Details Date Type Department Care Team (Latest Contact Info) Description 05/29/2021 Travel Social History Tobacco Use Types Packs/Day [...] documented as of this encounter Care Teams Underground Miner Relationship Specialty Start Date End Date Amber Bedolla APRN [address] [place] [address] PCP - General 07/18/20 Tarik Cadet MD [address] [facility] [address] [place] [address] Surgeon Neurosurgery 05/25/21 documented as of this encounter
--- OUTSIDE RECORDS SUMMARY | 2024-02-08 13:15 | XMS_ITS | Encounter Summary ---
Author Organization [facility] Address [address] [place] [address] Care Team Providers Care Ceo And Founder Name Role Phone Amber Bedolla Antonio PALAFOX Primary Care Provider [phone]- [phone] Tarik Cadet MD Unavailable Reason for Visit * Reason Comments Injections * Other Medical (Routine) - Closed Specialty Diagnoses / Procedures Referred By Contac t Referred To Contact Pain Medicine Diagnoses Radiculitis, lumbosacral Procedures Interlaminer Epidural - Lumbar / Sacral Ravi Salguero MD [address] [address] Phone: tel: fax: [facility] Interventional Pain Medicine [address] [place] [address] Phone: tel: fax: Referral ID Status Reason Start Date Expiration Date Visits Re quested Visits Authorized [id number] Closed 05/27/2021 11/26/2022 1 1 Encounter Details Date Type Department Care Team (Late st Contact Info) Description 05/29/2021 11:00 AM EDT Procedure Visit [facility] Interventional Pain Medicine [address] [id number] Ravi Salguero MD [address] [phone] Radiculitis, lumbosacral Social History Tobacco Use Types Packs/Day Years [...] Sign Reading Time Taken Comments Blood Pressure 154/68 05/29/2021 11:20 AM EDT Pulse 79 05/29/2021 11:20 AM EDT Temperature 36.1 ??C (96.9 ??F) 05/29/2021 10:36 AM E DT Respiratory Rate 18 05/29/2021 11:20 AM EDT Oxygen Saturation 99% 05/29/2021 11:20 AM EDT Inhaled Oxygen Concentration - - Weight - - Height - - Body Mass Index - - documented in this encounter Miscellaneous Notes * Clinician Note - Maria E Cornejo RN - 05/29/2021 11:00 AM EDT Patient ID: Nory Ceja is a 66 y.o. female. Procedure: LESI Pre-Procedure Pre-Procedure Checklist Procedure verified with patient/guardian: yes Consent signed, dated, timed, and present: yes History and Physical performed: yes Nursing Assessment performed: yes Pre-Procedure/Sedation Assessment and Plan performed: yes Discharge instructions reviewed with patient/guardian: yes Plan of Care reviewed with patient/guardian: yes Patient's/Guardian's questions addressed: yes Review of Systems General appearance: normal Oropharynx: normal Respiratory effort: normal Auscultation of lungs: normal Auscultation of heart: normal Abdomen: normal Mobility: normal Skin: normal Orientation to person, time, and place: normal Mood and affect: normal Intra-Procedure Prep & Positioning The patient was prepped and draped in usual sterile fashion and placed in a prone position. Time Out A timeout was called at 11:12 AM, immediately prior to the procedure, in accordance with [employer]. Procedure Start Time: 11:14 AM Procedure End Time: 11:16 AM Fluoro Time: 8 seconds Fluoro Dose: 3.13 mGy Post-Procedure Discharge Status Orientation to person, time, and place: normal Mood and affect: normal Discharge disposition: home Mode of exit: walked @ 1125 Patient verbalizes understanding of follow-up appointments, post-procedure care, and medications. * Progress Notes - Ravi Salguero MD - 05/29/2021 11:00 AM EDTAssociated Order(s): Interlaminer Epidural - Lumbar / Sacral Pre-Procedure Diagnose(s): Radiculitis, lumbosacral Post-Procedure Diagnose(s): Radiculitis, lumbosacral Patient ID: Nory Ceja is a 66 y.o. female. Encounter Diagnosis Name Primary? Radiculitis, lumbosacral Interlaminer Epidural - Lumbar / Sacral Performed by: Ravi Salguero MD Authorized by: Ravi Salguero MD Procedure(s): Left L4-L5 Lumbar Interlaminar Epidural Steroid injection Anesthesia Type: local only Complications: none Follow-up Plan: Clinic follow up as scheduled Procedure: This patient was seen earlier for a comprehensive evaluation of their painful condition.After discussing treatment options, the patient elected to proceed with a lumbar interlaminar epidural steroid injection. Written, informed consent was obtained before the start of the procedure. Thepatient's history of present illness, past medical history (including current medications and allerg ies), and physical examination were reviewed with the patient immediately before the procedure, andit was confirmed directly with the patient that [...] ChloraPrep skin prep followed by sterile drape. The interlaminar space was then identified by fluoroscopy and marked. The patient received 1% lidocaine for local anesthesia subcutaneously. An 20-gauge 9 cm Tuohy needle was then advanced under fluoroscopic guidance using a coaxial approach, loss of resistance to saline until the epidural space was entered. After negative aspiration, under live fluoroscopy in the anterior-posterior position, 1 mL of contrast solution was injected. This demonstrated appropriate epidural spread and was negative for intravascular or intrathecal flow. After confirmation of proper positioning of the needle within the epidural space 40 mg of DepoMedrol was injected with 3 mL of normal saline. The stylette was replaced and the needle was then removed. Sterile bandage was applied over the puncture site. Following completion of the procedure, the patient was transported to the PACU, then was later discharged in stable condition. documented in this encounter Plan of Treatment Not on file documented as of this encounter Procedures Procedure Name Priority Date/Time Associated Diagnosis Comments KS NJX DX/THER SBST INTRLMNR LMBR/SAC W/IMG GDN Routine 05/29/2021 11:00 AM EDT Radiculitis, lumbosacral documented in this encounter Results * KS NJX DX/THER SBST INTRLMNR LMBR/SAC W/IMG GDN (05/29/2021 11:00 AM EDT) Narrative Ravi Salguero MD - 05/29/2021 11:00 AM EDT Ravi Salguero MD ? 05/29/2021 11:44 AM Interlaminer Epidural - Lumbar / Sacral Performed by: Ravi Salguero MD Authorized by: Ravi Salguero MD us Ravi Salguero MD IN CLINIC/BEDSIDE ORDERABLES Final Result documented in this encounter Visit Diagnoses Diagnosis Radiculitis, lumbosacral Thoracic or lumbosacral neuritis or radiculitis, unspecified documented in this encounter Administered Medications Inactive Administered Medications - up to 3 most recent administrations Medication Order MAR Action Action Date Dose Rate Site iohexol (OMNIPaque) 300 MG/ML injection 10 mL 10 mL, Other, Once in imaging, 1 dose, Starting on Tue05/29/21 at 1113, Until Tue05/29/21 at 1115, RoutineIndications:Radiculiti s, lumbosacral Given by Other 05/29/2021 11:15 AM EDT 10 mL lidocaine PF (Xylocaine) 1 % injection 300 mg 300 mg (30 mL), Injection, Once, 1 dose, On Tue05/29/21 at 1130, RoutineIndications:Radiculiti s, lumbosacral Given by Other 05/29/2021 11:15 AM EDT 50 mg methylPREDNISolone acetate (DEPO-Medrol) injection 40 mg 40 mg, Intra-articular, Once, 1 dose, On Tue05/29/21 at 1130, RoutineIndications:Radiculiti s, lumbosacral Given by Other 05/29/2021 11:15 AM EDT 40 mg sodium bicarbonate 8.4 % injection 50 mEq 50 mEq, Subcutaneous, Once, 1 dose, On Tue05/29/21 at 1130, RoutineIndications:Radiculiti s, lumbosacral Given by Other 05/29/2021 11:14 AM EDT 50 mEq Other sodium chloride (PF) 0.9 % injection 20 mL 20 mL, Intracatheter, Once, 1 dose, On Tue05/29/21 at 1130, RoutineIndications:Radiculiti s, lumbosacral Given by Other 05/29/2021 11:14 AM EDT 20 mL documented in this encounter Additional Health Concerns Assessment Noted Time A fall risk assessment has been complete d for the patient 05/29/2021 10:36 AM EDT documented as of this encounter Care Teams Ceo And Founder Relationship Specialty Start Date End Date Amber Bedolla APRN [address] [address] PCP - General 07/18/20 Tarik Cadet MD [address] [address] Surgeon Neurosurgery 05/25/21 documented as of this encounter
--- OUTSIDE RECORDS SUMMARY | 2024-02-08 13:15 | XMS_ITS | Encounter Summary ---
Author Organization [facility] Address [address] [place], [place] [address] Care Team Providers Care Hardware Technician Name Role Phone Amber Bedolla VIVIENNE Primary Care Provider [phone]- [phone] Reason for Visit * Reason Comments Follow-up Encounter Details Date Type Department Care Team (Late st Contact Info) Description 04/30/2021 11:00 AM EST Office Visit [facility] Orthopaedic Surgery & Sports Medicine [address], [address] [place] [address] Shadi Mims MD [address] [place] [address] Traumatic complete tear of right [...] AM EST documented as of this encounter Last Filed Vital Signs Vital Sign Reading Time Taken Comments Blood Pressure 150/72 04/30/2021 10:52 AM EST Pulse 96 04/30/2021 10:52 AM EST Temperature - - Respiratory Rate - - Oxygen Saturation 97% 04/30/2021 10:52 AM EST Inhaled Oxygen Concentration - - Weight 79.4 kg (175 lb) 04/30/2021 10:52 AM EST Height 160 cm (5' 3 ) 04/30/2021 10:52 AM EST Body Mass Index 31 04/30/2021 10:52 AM EST documented in this encounter Miscellaneous Notes * Progress Notes - Wes Chapa MD - 04/30/2021 11:00 AM EST History of present illness: Nory Ceja is a 66 y.o. female who presents with a 9 month history of right shoulder pain. The patient states she hurt her right arm landing after a fall 10 months ago. Since that time, she has been doing home directed therapy exercises to regain full range of motion and regain partial strength. 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 At her last visit on April 16, an MRI was obtained and she is here for follow-up of her results. She states nothing has changed in the past 2 weeks and she continues to have pain and loss of function of her right shoulder. I have reviewed and updated the [...] head and there is well-maintained glenohumeral jointspace. MRI: MRI right shoulder reviewed and demonstrates a medium to large size rotator cuff tear with retraction near the glenoid. There is partial tearing of the biceps tendon in the bicipital groove. No significant atrophy of the supraspinatus muscle belly. Assessment/Plan 66-year-old female with right shoulder pain status post fall 10 months ago, concern for rotator cuff tear -We discussed treatment options. The patient has attempted extensive non operative treatment with home therapy. We did discuss surgical options with her and she would like to proceed with surgery. 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 She understands she has a slightly higher risk of rotator cuffre-tear by waiting. In the meantime, she will maintain her range of motion and strength of her right shoulder. [id number] anti-inflammatories as needed for pain control. Wes Chapa MD Orthopedic Sports Medicine Fellow 04/30/2021 11:16 AM Cosigned by Shadi Mims MD at 05/06/2021 8:15 PM EST Associated attestation - Shadi Mims MD - 05/06/2021 8:15 PM EST I saw and evaluated the [...] documented as of this encounter Care Teams Hardware Technician Relationship Specialty Start Date End Date Amber Bedolla APRN [address] [place] [address] PCP - General 07/18/20 documented as of this encounter
--- OUTSIDE RECORDS SUMMARY | 2024-02-08 13:15 | XMS_ITS | Encounter Summary ---
Author Organization [facility] Address [address] [place] [address] Care Team Providers Care Administrative Director Name Role Phone Chioma Amber Antonio PALAFOX Primary Care Provider [phone]- [phone] Tarik Cadet MD Unavailable [phone] Reason for Referral * Other Medical (Routine) - Closed Specialty Diagnoses / Procedures Referred By Contac t Referred To Contact Pain Medicine Diagnoses Other spondylosis, lumbosacral region Procedures Facet MBB - Lumbar Maria E Heredia APRN [address] [facility] [address] [place] [address] Phone: tel: fax: [facility] Interventional Pain Medicine [facility] [place] [address] Phone: tel: fax: Referral ID Status Reason Start Date Expiration Date Visits Re quested Visits Authorized [id number] Closed 07/02/2021 01/01/2023 1 1 Reason for Visit * Reason Comments Follow-up After injections Encounter Details Date Type Department Care Team (Late st Contact Info) Description 07/02/2021 3:15 PM EDT Office Visit [facility] Interventional Pain Medicine [facility] [place] [address] Maria E Heredia, VIVIENNE [address] [facility] [address] [place] [address] Other spondylosis, lumbosacral region (Primary Dx); Weakness Social History Tobacco Use Types Packs/Day Years [...] Sign Reading Time Taken Comments Blood Pressure 140/68 07/02/2021 3:14 PM EDT Pulse 84 07/02/2021 3:14 PM EDT Temperature 37 ??C (98.6 ??F) 07/02/2021 3:14 PM EDT Respiratory Rate - - Oxygen Saturation - - Inhaled Oxygen Concentration - - Weight 79.4 kg (175 lb) 07/02/2021 3:14 PM EDT Height 160 cm (5' 3 ) 07/02/2021 3:14 PM EDT Body Mass Index 31 07/02/2021 3:14 PM EDT documented in this encounter Miscellaneous Notes * Progress Notes - Maria E Heredia APRN - 07/02/2021 3:15 PM EDT Interventional Pain Medicine Subjective: Referring Physician: No referring provider defined for this encounter. Chief Complaint: Follow-up (After injections) Record Review: I personally reviewed Neurosurgery records from 05/25/2021 History of Present Illness: Nory Ceja is a 66 y.o. female presents for Follow-up (After injections) Back Pain started when she was 17 and had intermittent back pain. In 2019 had bilateral TKR- the PTfor this seemed [...] Strength Right Left L2: Hip flexion (iliopsoas) 07/09 06/09 L3: Knee extension (quad) 07/09 07/09 L4: Ankle DF (TA) 07/09 07/09 L5: Great Toe DF (EHL) 07/09 07/09 S1: Ankle PF, Foot Eversion (Peroneal longus/brevis) 07/09 07/09 S2: Great toe flexion (FHL), Knee Flexion 07/09 07/09 Reflexes Right Left L4: Patellar 2/4 2/4 S1: Achilles 2/ 2/ Clonus None None Imaging: TECHNIQUE: XR SCOLIOSIS [...] extension views of the lumbar spine. ?? L-spine MRI -reviewed images MRI demonstrated degenerative changes and moderate stenosis @ L4/5 and L5/S1 Assessment & Plan: Nory Ceja is a 66 y.o. female With longstanding back and left leg pain. #Radiculitis Chronic Worsening -failed PT and medication -s/p left L4/5 LESI reporting no improvement with back pain and 20% improvement with LLE pain. -has LLE weakness-chronic; no hx of having EMG; EMG ordered #Lumbar spondylosis-chronic worsening - persistent back pain (worse on left) -failed PT -has +facet loading -proceed with LMBB L4-SA on left (#1) and potiental RFA F/u after procedure documented in this encounter Plan of Treatment Not on file documented as of this encounter Results * UT INJ DX/THER AGNT PARAVERT FACET JOINT,IMG GUIDE,LUMBAR/SAC, 1ST LEVEL, UT INJ DX/THER AGNT PARAVERT FACET JOINT,IMG GUIDE,LUMBAR/SAC, 2ND LEVEL (07/20/2021 9:30 AM EDT) Narrative Ravi Salguero MD - 07/20/2021 9:30 AM EDT Ralph Toth MD ? 07/27/2021 ??8:24 AM Facet MBB - Lumbar Performed by: Ralph Toth MD Authorized by: Maria E Heredia APRN [place] protocol: ??Attending Supervision?: yes ?? us Maria E Heredia APRN IN CLINIC/BEDSIDE ORDERABL ES Edited Result - Final documented in this encounter Visit Diagnoses Diagnosis Other spondylosis, lumbosacral region- Primary Weakness Other malaise and fatigue Spondylosis of lumbosacral region without myelopathy or radiculopathy- Primary Other spondylosis, lumbosacral region documented in this encounter Additional Health Concerns Assessment Noted Time A fall risk assessment has been complete d for the patient 07/02/2021 3:14 PM EDT documented as of this encounter Care Teams Administrative Director Relationship Specialty Start Date End Date Amber Bedolla APRN [address] [place] [address] PCP - General 07/18/20 Tarik Cadet MD [address] [facility] [address] [place] [address] Surgeon Neurosurgery 05/25/21 documented as of this encounter
--- OUTSIDE RECORDS SUMMARY | 2024-02-08 13:15 | XMS_ITS | Encounter Summary ---
Author Organization Healthcare Address [address] [id number] Care Team Providers Care Commercial Real Estate Paralegal Name Role Phone Amber Bedolla VIVIENNE Primary Care Provider [phone]- [phone] Encounter Details Date Type Department Care Team (Late st Contact Info) Description 05/19/2021 Orders Only [place] [facility] [address] [place] [address] Koko Arambula, JENNYFER [address] [place] [address] Lumbar spondylosis (Primary Dx) Social History Tobacco Use Types [...] OR 3 VIEWS ordered by KOKO ARAMBULA, [id number] CLINICAL INDICATION: Low back pain TECHNIQUE: XR [...] 2OR 3 VIEWS ordered by KOKO ARAMBULA, [id number] CLINICAL INDICATION: Low back pain TECHNIQUE: XR [...] Koko BURGER IMG XR PROCEDURES Final Result * [...] OR 3 VIEWS ordered by KOKO ARAMBULA, [id number] CLINICAL INDICATION: Low back pain TECHNIQUE: XR [...] 2OR 3 VIEWS ordered by KOKO ARAMBULA, [id number] CLINICAL INDICATION: Low back pain TECHNIQUE: XR [...] in this encounter Visit Diagnoses Diagnosis Lumbar spondylosis- Primary Lumbosacral spondylosis without myelopathy Lumbar spondylosis Lumbosacral spondylosis without myelopathy Lumbar spondylosis Lumbosacral spondylosis without myelopathy documented in this encounter Additional Health Concerns Assessment Noted Time A fall risk assessment has been complete d for the patient 04/30/2021 10:52 AM EST documented as of this encounter Care Teams Commercial Real Estate Paralegal Relationship Specialty Start Date End Date Amber Bedolla APRN [address] [place] [address] PCP - General 07/18/20 documented as of this encounter
--- OUTSIDE RECORDS SUMMARY | 2024-02-08 13:15 | XMS_ITS | Encounter Summary ---
Author Organization [facility] Address [address] [place] [address] Care Team Providers Care Sanitarian Name Role Phone Unavailable Primary Care Provider Unavailabl e Encounter Details Date Type Department Care Team (Late st Contact Info) Description 08/02/2013 [facility] Vitals Encounter [facility] OUTPATIENT CONVERSIONS [address] [place] [address] Provider, MD Catie [address] [place], [place] [id number] Social History Tobacco Use Types Packs/Day Years [...] - Inhaled Oxygen Concentration - - Weight 71.7 kg (158 lb 0.1 oz) 08/02/2013 8:52 A M EDT Height 161.3 cm (5' 3.5 ) 08/02/2013 8:52 AM EDT Body Mass Index 27.55 08/02/2013 8:52 AM EDT documented in this encounter Plan of Treatment Not on file documented as of this encounter Visit Diagnoses Not on filedocumented in this encounter
--- OUTSIDE RECORDS SUMMARY | 2024-02-08 13:15 | XMS_ITS | Encounter Summary ---
Author Organization [facility] Address [address] [place] [address] Care Team Providers Care Mortgage Loan Coordinator Name Role Phone Amber Bedolla VIVIENNE Primary Care Provider [phone] Tarik Cadet MD Unavailable [phone] Reason for Referral * Other Medical (Routine) - Closed Specialty Diagnoses / Procedures Referred By Contac t Referred To Contact Pain Medicine Diagnoses Radiculitis, lumbosacral Procedures Interlaminer Epidural - Lumbar / Sacral Ravi Salguero MD [address] [address] Phone: tel: fax: [facility] Interventional Pain Medicine [address] [place] [address] Phone: tel: fax: Referral ID Status Reason Start Date Expiration Date Visits Re quested Visits Authorized [id number] Closed 05/27/2021 11/26/2022 1 1 Reason for Visit * Reason Comments Back Pain * Consultation (Routine) - Closed Specialty Diagnoses / Procedures Referred By Contac t Referred To Contact Pain Medicine Diagnoses Anterolisthesis of lumbar spine DDD (degenerative disc disease), lumbar Bilateral low back pain without sciatica, unspecified chronicity Tarik Cadet MD [address] [facility] [address] [place] [address] Phone: tel: fax: [facility] Interventional Pain Medicine [address] [place] [address] Phone: tel: fax: Referral ID Status Reason Start Date Expiration Date V isits Requested Visits Authorized [id number] Closed Specialty Services Required 05/25/2021 11/24/2022 1 1 Encounter Details Date Type Department Care Team (Late st Contact Info) Description 05/27/2021 10:00 AM EDT Consult [facility] Interventional Pain Medicine [address] [place] [address] Ravi Salguero MD [address] [facility] [address] [place] [address] Radiculitis, lumbosacral (Primary Dx); Anterolisthesis of lumbar spine; DDD (degenerative disc disease), lumbar; Bilateral low back pain without sciatica, unspecified chronicity Social History Tobacco Use Types Packs/Day Years [...] Sign Reading Time Taken Comments Blood Pressure 153/82 05/27/2021 10:19 AM EDT Pulse 76 05/27/2021 10:19 AM EDT Temperature 36.2 ??C (97.1 ??F) 05/27/2021 10:19 AM E DT Respiratory Rate 16 05/27/2021 10:19 AM EDT Oxygen Saturation - - Inhaled Oxygen Concentration - - Weight 79.4 kg (175 lb) 05/27/2021 10:19 AM EDT Height 160 cm (5' 3 ) 05/27/2021 10:19 AM EDT Body Mass Index 31 05/27/2021 10:19 AM EDT documented in this encounter Miscellaneous Notes * Progress Notes - Ravi Salguero MD - 05/27/2021 10:00 AM EDT Interventional Pain Medicine New Patient Note Subjective: Referring Physician: Tarik Cadet MD [address] [address] Chief Complaint: Back Pain Record Review: I personally reviewed Neurosurgery records History of Present Illness: Nory Ceja is a 66 y.o. female presents for Back PainPain started when she was 17. Since thattime she had on and off back pain. 2019 had bilateral TKR- the PT for this seemed to have exacerbated her low back. 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 She has never used smokeless tobacco. Diabetes: none A1C: na Anticoagulation: none Review of Systems: CONSTITUTIONAL: denies fevers, chills HEENT: denies swallowing difficulties, sore throat CARDIOVASCULAR: denies chest pain, palpitations, syncope RESPIRATORY: denies shortness of breath, cough, wheezing GI: denies change in bowel habits, nausea, vomiting : denies change in bladder function, frequency, dysuria SKIN: denies rash, skin changes MSK: Per HPI NEURO: Per HPI PSYCH: Per HPI General Physical Exam: Constitutional Oriented to person, place, and time. Appears well-developed and well-nourished Head Normocephalic and atraumatic. Eyes Pupils are equal, round, and reactive to light. Neck Neck supple Cardiovascular Minimal to no peripheral edema, intact [...] Sacroiliac Joint Pasquale's Finger (PSIS) - - ZULEMA - - Gaenslen's - - Compression - - Distraction - - Lower Extremity SLR - + Lower Extremity Crossed SLR - - Sensation Right Left L2: Proximal Anterior Thigh Normal Normal L3: Mid Anterior Thigh Normal Normal L4: Medial leg/foot, great toe (Saphenous n.) Normal Normal L5: Dorsum of mid foot Normal Normal S1: Lateral leg/foot, little toe, back of leg (Sural n.) Normal Normal Motor Strength Right Left L2: Hip flexion (iliopsoas) 5/5 4/5 L3: Knee extension (quad) 5/5 4/5 L4: Ankle DF (TA) 5/5 5/5 L5: Great Toe DF (EHL) 5/5 5/5 S1: Ankle PF, Foot Eversion (Peroneal longus/brevis) 5/5 5/5 S2: Great toe flexion (FHL), Knee Flexion 5/5 5/5 Reflexes Right Left L4: Patellar 2/4 2/4 S1: Achilles 2/4 2/4 Babinski Absent Absent Clonus Absent Absent Imaging: TECHNIQUE: XR SCOLIOSIS ENTIRE SPINE 2 [...] study and made my own interpretation, noting: MRI and x-rays demonstrated degenerative changes and moderate stenosis @ L4/5 and L5/S1 Assessment & Plan: Nory Ceja is a 66 y.o. female With longstanding back and left leg pain. MRI with stenosis and Grade 1 spondy #Radiculitis Chronic Worsening -failed PT -failed meds -Recommend LESI #Lumbar spondylosis - persistent back pain -failed PT -address after LESI -discussed LMBB and potiental RFA Answers for HPI/ROS submitted by the patient on 05/26/2021 Chronicity: chronic Onset: more than 1 year ago Frequency: daily Progression since onset: waxing and waning Pain location: sacro-iliac Pain quality: aching Radiates to: left thigh Pain - numeric: 3/10 Pain is: worse during the day Aggravated by: bending, position, standing, twisting Stiffness is present: all day abdominal pain: No bladder incontinence: No bowel incontinence: No chest pain: No dysuria: No fever: No headaches: No leg pain: No numbness: No paresis: No paresthesias: No pelvic pain: No perianal numbness: No tingling: No weakness: No weight loss: No documented in this encounter Plan of Treatment Not on file documented as of this encounter Results * SD NJX DX/THER SBST INTRLMNR LMBR/SAC W/IMG GDN (05/29/2021 11:00 AM EDT) Narrative Ravi Salguero MD - 05/29/2021 11:00 AM EDT Ravi Salguero MD ? 05/29/2021 11:44 AM Interlaminer Epidural - Lumbar / Sacral Performed by: Ravi Salguero MD Authorized by: Ravi Salguero MD us Ravi Salguero MD IN CLINIC/BEDSIDE ORDERABLES Final Result documented in this encounter Visit Diagnoses Diagnosis Radiculitis, lumbosacral- Primary Thoracic or lumbosacral neuritis or radiculitis, unspecified Anterolisthesis of lumbar spine DDD (degenerative disc disease), lumbar Degeneration of lumbar or lumbosacral intervertebral disc Bilateral low back pain without sciatica, unspecified chronicity Radiculitis, lumbosacral Thoracic or lumbosacral neuritis or radiculitis, unspecified documented in this encounter Additional Health Concerns Assessment Noted Time A fall risk assessment has been complete d for the patient 05/27/2021 10:19 AM EDT documented as of this encounter Care Teams Mortgage Loan Coordinator Relationship Specialty Start Date End Date Amber Bedolla APRN [address] [place], [place] [id number] PCP - General 07/18/20 Tarik Cadet MD [address] [address] Surgeon Neurosurgery 05/25/21 documented as of this encounter
--- OUTSIDE RECORDS SUMMARY | 2024-02-08 13:15 | XMS_ITS | Encounter Summary ---
Author Organization [facility] Address [address] [place] [address] Care Team Providers Care Liaison Engineer Name Role Phone Amber Bedolla APRN Primary Care Provider [phone] Encounter Details Date Type Department Care Team (Latest Contact Info) Description 04/29/2021 Travel Social History Tobacco Use Types Packs/Day [...] documented as of this encounter Care Teams Liaison Engineer Relationship Specialty Start Date End Date Amber Bedolla APRN [address] [place] [address] PCP - General 07/18/20 documented as of this encounter
[2024-02-08 14:58] VITALS: BP 148/71; PULSE 98; RESP 16; O2SAT 98; BMI 29.2
== END 2024-02-08 23:59 | disposition home or self-care (01) ==
LOC: SC.PAIN 13:10
PROVIDERS: PCP Internal Medicine Adolescent Medicine; Visit Provider Nurse Practitioner Family
DX: M70.62 Trochanteric bursitis, left hip (principal); Z98.1 Arthrodesis status; M46.1 Sacroiliitis, not elsewhere classified; M47.26 Other spondylosis with radiculopathy, lumbar region; M51.16 Intervertebral disc disorders with radiculopathy, lumbar region
CPT/HCPCS: 99212; G0463

== ENCOUNTER 2024-04-02 13:08 | Outpatient (POV) | payer MEDICARE, OTHER, SELFPAY ==
--- NOTE | 2024-04-02 13:18 | A.OFFVIS_ITS ---
[facility] Disclaimer: The information contained in this section may have been updated after the patient was seen, as this information can be updated by other users. Medical History Rheumatoid arthritis Motion sickness Kidney stones GERD (gastroesophageal reflux disease) Dental disease Arthritis Surgical History H/O repair of rotator cuff History of lumbar spinal fusion H/O total hip arthroplasty H/O total knee replacement Family History Other Arthritis Diabetes Hyperlipidemia Hypertension Social History Smoking Status: Never smoker alcohol intake: current alcohol intake frequency: holidays/special occasions only current occupational status: other Travel in the last 8 weeks: None caffeine: Yes PM Subjective & Objective Subjective Subjective:: Patient is a pleasant 69-year-old female who presents today for follow-up. Today she rates her pain a 1 out of 10. She states that she did have a slip on ice the other day however she is still doing well in her back and denies any increased pain issues. Patient has had both bursa and SI injections as well as a transforaminal and lumbar epidural with good success. Patient feels like she is needed with overall improvements. Her Harrison has been reviewed and is ap propriate. Review of Systems: General: No recent weight changes, no fever, no sleep disturbances Respiratory: No cough, no shortness of air, no recurring pulmonary infections Cardiovascular/peripheral vascular: No chest pain, no palpitations, no edema, no shortness of breath Gastrointestinal: No new onset incontinence, normal bowel movements reported Genitourinary: No new onset incontinence Musculoskeletal: Low back pain Psychiatric: [Normal mood/affect] Neurological: [Denies weakness in extremities], [denies balance issues] Pain at rest (0-10 scale): 1 Objective Objective:: Physical Exam: General: Alert and oriented x3, no acute distress, pleasant and cooperative Lungs: Respirations even and unlabored, symmetrical chest expansion Eyes: PERRL Musculoskeletal: Flexion and extension of lumbar spine within normal limits Neurological: Speech clear, no gross sensory deficit Has patient had previous pain injection?: No Conservative treatment options previously tried: Home exercise plan Length of treatment: Longer than 12 weeks Meds Home Medications and Allergies Home Medications ?Medication ?Instructions ?Recorded ?Confirmed ?Type conjugated estrogens 0.45 mg 0.45 mg PO DAILY Supplement 07/24/17 02/08/24 History tablet (Premarin) ibuprofen 800 mg-famotidine 26.6 1 ea PO DAILY Pain 07/24/17 02/08/24 History mg tablet (Duexis) lamotrigine 150 mg tablet 150 mg PO DAILY rash 07/24/17 02/08/24 History (Lamictal) valacyclovir 1 gram tablet 1,000 mg PO DAILY PRN fever 07/24/17 02/08/24 History (Valtrex) blisters omeprazole 20 mg capsule,delayed 20 mg PO DAILY stomach 08/19/17 02/08/24 History release New Prescriptions to Start Prescriptions: Allergies Allergy/AdvReac Type Severity Reaction Status Date / Time No Known Allergies Allergy Verified 11/01/23 14:07 Assessment and Plan *Assessment and plan (1) Greater trochanteric bursitis of left hip: Status: Acute Category: Medical Code(s): M70.62 - Trochanteric bursitis, left hip (2) History of lumbar fusion: Status: Acute Category: Surgical Code(s): Z98.1 - Arthrodesis status (3) Lumbar facet arthropathy: Status: Acute Category: Medical Code(s): M47.816 - Spondylosis without myelopathy or radiculopathy, lumbar region (4) Lumbar nerve root impingement: Status: Acute Category: Medical Code(s): M54.16 - Radiculopathy, lumbar region (5) Sacroiliitis: Status: Acute Category: Medical Code(s): M46.1 - Sacroiliitis, not elsewhere classified (6) Lumbar radiculopathy: Status: Acute Category: Medical Code(s): M54.16 - Radiculopathy, lumbar region (7) Degenerative disc disease, lumbar: Status: Acute Category: Medical Code(s): M51.369 - Other intervertebral disc degeneration, lumbar region without mention of lumbar back pain or lower extremity pain Plan Patient is still doing well and does not require any additional injection therapy at this time. Patient will return to clinic in 3 months for reevaluati on of symptoms and plan of care. Patient has been instructed to contact the clinic with any concerns before the next appointment. Dr. Peter has reviewed this note and agrees with this plan of care. This note was dictated using voice recognition software and make contain errors or omissions. All injections are used with Lidocaine, Bupivacaine and Depo Medrol. Occasionally urine drug screen is needed to verify patient's compliance with our office pain contract. This is ordered based off specific treatments related to chronic pain with the potential to abuse certain medications.
[2024-04-02 13:49] VITALS: BP 140/79; PULSE 98; RESP 18; O2SAT 99; BMI 29.2
== END 2024-04-02 23:59 | disposition home or self-care (01) ==
PROVIDERS: PCP Internal Medicine Adolescent Medicine; Visit Provider Nurse Practitioner Family
DX: M70.62 Trochanteric bursitis, left hip (principal); Z98.1 Arthrodesis status; M46.1 Sacroiliitis, not elsewhere classified; M51.16 Intervertebral disc disorders with radiculopathy, lumbar region; M47.26 Other spondylosis with radiculopathy, lumbar region; Z96.659 Presence of unspecified artificial knee joint
CPT/HCPCS: 99212; G0463

== ENCOUNTER 2024-04-09 13:27 | Outpatient (CLI) | payer MEDICARE, OTHER, SELFPAY ==
--- NOTE | 2024-04-09 | CT_ITS ---
FINAL REPORT TECHNIQUE: After the administration of intravenous contrast, axial images were obtained through the abdomen and pelvis by computed tomography. This study was performed with technique to keep radiation doses as low as reasonably achievable, (ALARA). Individualized dose reduction techniques using automated exposure control or adjustment of the MA and/or KV according to the patient's size were employed. CLINICAL HISTORY: LLQ PAIN hx of kidney stones. COMPARISON: 08/06/2022 FINDINGS: Abdomen: The lung bases demonstrate scarring in the lingula. There is moderate fatty infiltration of the liver. The gallbladder is present. There is a small, sliding-type hiatal hernia. The spleen is unremarkable. The adrenals are normal. The pancreas is unremarkable. There are parapelvic renal cysts which are stable from prior exam. There is no hydronephrosis or nephrolithiasis. The aorta is normal in caliber. There is no free fluid or adenopathy. There is abnormal mucosal thickening and extensive inflammation surrounding the proximal sigmoid colon likely due to acute, uncomplicated diverticulitis. This is best seen on images [id number] of series 2. Pelvis: Streak artifact is seen from left hip prosthesis and posterior fusion hardware bridging L4-5. The appendix is not identified. The urinary bladder is unremarkable. There is no free fluid or adenopathy. IMPRESSION: Acute, uncomplicated sigmoid diverticulitis. Reviewed, Interpreted and Dictated by Billy Fernandez MD Transcribed by Melissa Damon Authenticated and . [facility]
[2024-04-09 13:46] LABS: Basophils # 0.1 K/mm3 (0-0.2); Basophils % 0.4 % (0.1-2.0); Eosinophils # 0.1 K/mm3 (0.0-0.4); Eosinophils % 0.7 % (0.1-12.0); Hemoglobin 11.9 g/dL (12.2-16.2); Lymphocytes # 1.3 K/mm3 (0.7-4.5); Lymphocytes % 10.3 % (10-50); Mean Corpuscular HGB Conc 33.1 g/dL (31.8-35.4); Mean Corpuscular Hemoglobin 29.7 pg (27.0-31.2); Mean Corpuscular Volume 89.8 fl (81-99); Mean Platelet Volume 10.4 fl (7.4-10.4); Monocytes # 1.3 K/mm3 (0.1-1.0); Monocytes % 10.4 % (1.7-9.3); Neutrophils # 9.5 K/mm3 (1.8-7.8); Neutrophils % 77.9 % (37.0-80.0); Platelet Count 228 K/mm3 (142-424); Red Blood Count 4.01 M/mm3 (4.20-5.40); Red Cell Distribution Width 12.2 % (11.5-17.5); White Blood Count 12.2 K/mm3 (4.8-10.8)
[2024-04-09 14:20] LABS: Alanine Aminotransferase 26 U/L (12-78); Albumin Level 4.3 g/dl (3.5-5.0); Albumin/Globulin Ratio 1.9 (1.1-1.8); Alkaline Phosphatase 107 U/L (38-126); Anion Gap 13.8 mEq/L (5-15); Aspartate Amino Transferase 28 U/L (14-36); Bilirubin,Total 0.5 mg/dl (0.2-1.3); Blood Urea Nitrogen 19 mg/dl (7-17); Calcium 9.1 mg/dl (8.4-10.2); Carbon Dioxide 24 mmol/L (22.0-30.0); Chloride 105 mmol/L (98-107); Estimated Glomerular Filt Rate 62 ml/min (>60); GFR (African American) 75 ML/MIN (>60); Globulin 2.3 g/dL (1.3-3.2); Glucose 110 mg/dl (74-100); Potassium 3.8 mmoL/L (3.5-5.1); Sodium 139 mmol/L (136-145); Total Protein,Serum 6.6 g/dl (6.3-8.2)
[2024-04-09] MEDS: SODIUM CHLORIDE 0.9% 10ML SYR (RAD ONLY) 10 ML IV (14:44)
[2024-04-09] MEDS: IOPAMIDOL-370 (76%);100ML BOTTLE 75 ML IV (14:44)
== END 2024-04-09 23:59 | disposition home or self-care (01) ==
LOC: RAD 13:29
PROVIDERS: PCP Nurse Practitioner Family; Visit Provider Nurse Practitioner Family
DX: R10.32 Left lower quadrant pain (principal)
CPT/HCPCS: 36415; 74177; 80053; 85025; Q9967

== ENCOUNTER 2024-07-04 13:02 | Outpatient (POV) | payer MEDICARE, OTHER, SELFPAY ==
--- NOTE | 2024-07-04 13:10 | EXP.PAIN.SOA ---
[facility] Disclaimer: The information contained in this section may have been updated after the patient was seen, as this information can be updated by other users. Medical History Rheumatoid arthritis Motion sickness Kidney stones GERD (gastroesophageal reflux disease) Dental disease Arthritis Surgical History H/O repair of rotator cuff History of lumbar spinal fusion H/O total hip arthroplasty H/O total knee replacement Family History Other Arthritis Diabetes Hyperlipidemia Hypertension Social History Smoking Status: Never smoker alcohol intake: current alcohol intake frequency: holidays/special occasions only current occupational status: other Travel in the last 8 weeks?: None caffeine: Yes PM Subjective & Objective Subjective Subjective:: Patient is a pleasant 69-year-old female who presents today for 3-month follow-up. Today she rates her pain a 4 or 5 out of 10. She denies any new trauma or injury. She does state that on occasion she will have some pain in her low back as if it hits the nerve. She states this pain is not always constant however she is having more pain in and around her SI joint primarily the left side however states she does have it on the right as well. She describes this as a fairly constant achy sensation that is worse with prolonged positioning. Patient does state that she does feel like this pain is interfering with her ability perform activities of daily living such as cooking and cleaning and would like to go ahead and get scheduled for an injection. She is prescribed compounded cream. Her Harrison has been reviewed and is appropriate. Injections: 11/01/2023 left bursa and left SI?85-90% 08/30/2023 left transforaminal L3-L4 L4-L5 70% 07/26/2023 lumbar epidural steroid injection L5-S1 85-90% Review of Systems: General: No recent weight changes, no fever, no sleep disturbances Respiratory: No cough, no shortness of air, no recurring pulmonary infections Cardiovascular/peripheral vascular: No chest pain, no palpitations, no edema, no shortness of breath Gastrointestinal: No new onset incontinence, normal bowel movements reported Genitourinary: No new onset incontinence Musculoskeletal: Low back pain, left hip pain Psychiatric: [Normal mood/affect] Neurological: [Denies weakness in extremities], [denies balance issues] Pain at rest (0-10 scale): 4 Objective Objective:: Physical Exam: General: Alert and oriented x3, no acute distress, pleasant and cooperative Lungs: Respirations even and unlabored, symmetrical chest expansion Eyes: PERRL Musculoskeletal: Flexion and extension of lumbar [spine] somewhat guarded secondary to pain, [antalgic gait noted] point tenderness along bilateral SIs with positive bilateral Karla's, Pasquale's, Gaenslen's, compression and distraction exam Neurological: Speech clear, no gross sensory deficit Has patient had previous pain injection?: No Conservative treatment options previously tried: Home exercise plan Length of treatment: Longer than 12 weeks Meds Home Medications and Allergies Home Medications ?Medication ?Instructions ?Recorded ?Confirmed ?Type conjugated estrogens 0.45 mg 0.45 mg PO DAILY Supplement 07/24/17 07/04/24 History tablet (Premarin) ibuprofen 800 mg-famotidine 26.6 1 ea PO DAILY Pain 07/24/17 07/04/24 History mg tablet (Duexis) lamotrigine 150 mg tablet 150 mg PO DAILY rash 07/24/17 07/04/24 History (Lamictal) valacyclovir 1 gram tablet 1,000 mg PO DAILY PRN fever 07/24/17 07/04/24 History (Valtrex) blisters omeprazole 20 mg capsule,delayed 20 mg PO DAILY stomach 08/19/17 07/04/24 History release New Prescriptions to Start Prescriptions: Allergies Allergy/AdvReac Type Severity Reaction Status Date / Time No Known Allergies Allergy Verified 11/01/23 14:07 Assessment and Plan *Assessment and plan (1) Sacroiliitis: Status: Acute Category: Medical Code(s): M46.1 - Sacroiliitis, not elsewhere classified Plan Patient is experiencing worsening pain along the low back and bilateral hips. They did have limited range of motion of the lumbar spine along with point tenderness along bilateral SI joints and a positive bilateral Karla's, Pasquale's, Gaenslen's, compression and distraction exam. I did discuss with the patient that I do believe they would benefit from bilateral SI injections. Risk and benefits were discussed with the patient and they would like to proceed forward with this option. Patient has tried and failed conservative therapy including continued at home stretching exercise for longer than 12 weeks. Patient had her last SI injections In October 2023 with 85 to 90% improvement. This will be a therapeutic injection with less than 1 mL of solution to be injected. If she does again get significant relief with these injections she may be a candidate for an SI fusion at a later date.patient will be scheduled for bilateral SI injections under fluoroscopy. Patient has been instructed to contact the clinic with any concerns before the next appointment. Dr. Peter has reviewed this note and agrees with this plan of care. This note was dictated using voice recognition software and make contain errors or omissions. All injections are used with Lidocaine or Bupivacaine and dexamethasone.
[2024-07-04 13:42] VITALS: BP 122/68; PULSE 85; RESP 14; O2SAT 99; BMI 34.4
== END 2024-07-04 23:59 | disposition home or self-care (01) ==
LOC: SC.PAIN 13:04
PROVIDERS: PCP Internal Medicine Adolescent Medicine; Visit Provider Nurse Practitioner Family
DX: M46.1 Sacroiliitis, not elsewhere classified (principal); Z73.89 Other problems related to life management difficulty
CPT/HCPCS: 99212; G0463

== ENCOUNTER 2024-07-31 09:04 | Day surgery (SDC) | payer MEDICARE, OTHER, SELFPAY ==
[2024-07-31 09:15] VITALS: BP 154/80; PULSE 87; RESP 16; TEMP 36.8; O2SAT 99; BMI 29.2
[2024-07-31] MEDS: DEXAMETHASONE 10MG/ML 1ML VIAL 10 MG (09:25)
[2024-07-31] MEDS: LIDOCAINE 1% 5ML PF VIAL 5 ML (09:25)
[2024-07-31] MEDS: BUPIVACAINE 0.25% 10ML INJ 25 MG IJ (09:25)
[2024-07-31 09:26] VITALS: BP 170/81; PULSE 100; RESP 18; O2SAT 97
[2024-07-31 09:27] VITALS: BP 170/81; PULSE 100; RESP 18; O2SAT 97
--- NOTE | 2024-07-31 09:33 | P.PCN_ITS ---
Procedure Date: 07/31/24 Time: 09:30 Anesthesiologist:: Wes Daigle CRNA Complications:: None Pre-procedure Diagnosis:: Bilateral sacroiliitis Post-procedure Diagnosis:: Same Indications for Procedure:: Patient is a very pleasant 69-year-old female who comes our clinic today for bilateral sacroiliac joint injection cortisone local anesthetic. Patient describes low lumbar back pain off the midline bilaterally. Bilateral posterior hip pain. Difficulty transitioning from sitting to standing. Difficulty with ambulation. Difficulty with sitting for any length of time. She rates her pain 7/10. Procedure Details:: Procedure: Bilateral sacroiliac joint injections under fluoroscopy Informed consent was obtained and the risks and benefits of the procedure were explained to the patient.~ The patient was taken to the procedure room and noninvasive monitors were placed including a noninvasive blood pressure cuff and pulse oximeter.~ The patient was placed prone on the procedure table. Both hips were cleansed using Betadine as a cleansing solution. C-arm fluoroscopy was used to view the right sacroiliac joint.~ The skin and subcutaneous tissues were anesthetized using lidocaine 1.5% and a 25-gauge needle.~ After this, a 22-gauge spinal needle was inserted under fluoroscopic guidance into the inferior aspect of the right sacroiliac joint.~ Omnipaque dye was injected and good spread was seen throughout the joint.~ After this, approximately 5 mL of bupivacaine, 0.25% and Depo-Medrol, 40 mg was incrementally injected into the right sacroiliac joint. We then moved to the left sacroiliac joint.~ The skin and subcutaneous tissues were anesthetized using lidocaine 1.5% and a 25-gauge needle.~ After this, a 22- gauge spinal needle was inserted under fluoroscopic guidance into the inferior aspect of the left sacroiliac joint.~ Omnipaque dye was injected and good spread was seen throughout the joint. After this, approximately 5 mL of bupivacaine, 0.25% and Depo-Medrol, 40 mg was incrementally injected into the left sacroiliac joint.~ The patient tolerated the procedure well with no complications. The patient was observed in the Pain Clinic and then was discharged home neurologically intact. Plan and Disposition:: Patient was discharged without incident.
[2024-07-31 09:51] VITALS: BP 137/76; PULSE 93; RESP 16; O2SAT 99
== END 2024-07-31 09:51 | disposition home or self-care (01) ==
PROVIDERS: PCP Internal Medicine Adolescent Medicine; Visit Provider Nurse Anesthetist, Certified Registered
DX: M46.1 Sacroiliitis, not elsewhere classified (principal)
CPT/HCPCS: G0260; J1100

== ENCOUNTER 2024-08-20 11:36 | Outpatient (POV) | payer MEDICARE, OTHER, SELFPAY ==
--- OUTSIDE RECORDS SUMMARY | 2024-06-09 17:30 | XMS_ITS ---
Author Organization [facility] Address [address] [place] [address] Care Team Providers Care Public Area Supervisor Name Role Phone BrandtgabrielSarathCharles Primary Care Provider [phone] Amber Bedolla Unavailable [phone] Migration, Provider Unavailable Unavailable [facility] Conversion Encounter Medications Medication SIG (Take, Route, Frequency, Duration) Notes Start Date End Date Status Hydroxychloroquine Sulfate 200 MG 1 tab(s) orally 2 times a day for 90 days 04/08/2022 Active Estradiol 0.1 MG/GM as directed intravaginally 2 times per week for 30 days 07/27/2022 Active MOBIC 15 MG 1 TAB(S) ORALLY ONCE A DAY for 90 DAYS *Please review for potential replacement for e-prescription and drug interaction check* Active Cyclobenzaprine HCl 10 MG 1 tab(s) orally once a day as needed for spasm for 90 days prn 10/23/2023 Active Gemtesa 75 MG 1 tab(s) orally once a day for 90 days 08/17/2023 Active Mounjaro 5 MG/0.5 ML 50 UNITS SUBCUTANEOUSLY ONCE A WEEK Compounded *Please review and pick correct strength[facility]formula [facility]. If intended option is not shown, discontinue and re-order from Quick Search* Active Fluconazole 150 MG 1 tab(s) orally once and repeat in 3 days for 3 days 04/12/2024 Active Gabapentin 300 MG 1 cap(s) orally 1 tab in morning and 2 tabs at bedtime Active B-12 2500 MCG 1 tab(s) sublingually once a day for 30 day(s) Active ZyrTEC Allergy 10 MG 1 tab(s) orally once a day prn Active Amoxicillin-Pot Clavulanate 875-125 MG 1 tab(s) orally every 12 hours for 10 days 04/12/2024 Active Nitrofurantoin Macrocrystal 50 MG 1 cap(s) orally once a day at bedtime for 90 days Active LaMICtal 150 MG 1 tab(s) orally 2 times a day for 90 days Active Omeprazole 20 MG 1 cap(s) orally once a day for 90 days Active Encounters Encounter Location Date Provider Diagnosis [facility] [address] [place] [address] 06/09/2024 Provider Migration Plan Of Treatment Medication Medication Name Sig Start Date Stop Date Notes Fluconazole 150 MG 1 tab(s) orally once and repeat in 3 days for 3 days 04/12/2024 Amoxicillin-Pot Clavulanate 875-125 MG 1 tab(s) orally every 12 hours for 10 days 04/12/2024 Nitrofurantoin Macrocrystal 50 MG 1 cap( s) orally once a day at bedtime for 90 days LaMICtal 150 MG 1 tab(s) orally 2 ti mes a day for 90 days Progress Notes * Nory CEJA GDOB:[birth year] (69 yo F)Acc No.[id number]:06/09/2024 Patient: Nory ESTEVES Provider: Marycruz mack Migration :1955 A ge:69 Y S ex:Female Date:06/09/2024 Address:[address] [place], [place] [address], [id number] Pcp:Charles Beckford Subjective: * Chief Complaints: * [...] * Treatment: * * Electronic signature of Prov brian Migration on 08/20/2024 at 11:40 AM EDT Sign off status: Pending * Provider: Marycruz mack Migration Date: 0 06/09/2024 Generated for Will benson/Jennifer/Joseph on: 0 08/20/2024 11:40 AM EDT
--- OUTSIDE RECORDS SUMMARY | 2024-08-20 11:39 | XMS_ITS | Encounter Summary ---
Author Organization Healthcare Address [address] [place] [address] Care Team Providers Care Carton Making Machinist Name Role Phone Amber Bedolla VIVIENNE Primary Care Provider [phone] Tarik Cadet MD Unavailable [phone] Encounter Details Date Type Department Care Team (Late st Contact Info) Description 06/27/2024 Telephone [facility] [address], [address] [place] [address] Tarik Cadet MD [address] [place] [address] Social History Tobacco Use Types [...] drink first t mony in the morning (EYE-GRAIN ORIGINATION SPECIALIST) to steady your nerves or to [...] encounter Miscellaneous Notes * Telephone Encounter - Erna Lira - 06/27/2024 3:33 PM EDT Patient Phone Message Reason for Call: Patient calling to r/s missed appt Best contact number and optimal time of day to reach caller: [phone] Note: Please do not reply to this message. Follow-up communication and further actions as a result of this message need to be communicated with the patient directly, if the patient is not active onMyChart. If the patient is active on MyChart, they will receive notification of the communication/outcome via Borqs. documented in this encounter Plan of Treatment [...] documented as of this encounter Care Teams Carton Making Machinist Relationship Specialty Start Date End Date Amber Bedolla APRN [address] [address] PCP - General 07/18/20 Tarik Cadet MD [address] [place] [address] Surgeon Neurosurgery 05/25/21 documented as of this encounter
--- OUTSIDE RECORDS SUMMARY | 2024-08-20 11:40 | XMS_ITS | Clinical Summary ---
Author Organization [facility] Address [address] [place] [address] Care Team Providers Care Acquisition Marketing Manager Name Role Phone Amber Bedolla Antonio PALAFOX Primary Care Provider [phone] Tarik Cadet MD Unavailable [phone] Allergies No known active allergies Medications [...] (09/28/2021): Added automatically from request for surgery [id number] Other spondylosis, lumbosacral region 07/05/2021 Weakness 07/05/2021 Traumatic complete tear of right rotator cuff Herniation of lumbar intervertebral disc 020 GERD (gastroesophageal reflux disease) 9 Encounters Date Type Department Care Team Description 06/27/2024 Telephone [place] [facility] [address] [place] [address] Tarik Cadet MD from Last 3 Months Family History Medical History Relation Name Comments [...] drink first t mony in the morning (EYE-SOLDER SPRAYER) to steady your nerves or to get [...] 78 10/12/2023 11:00 AM EDT Temperature 36.6 C (97.9 F) 10/12/2023 11:00 AM EDT Respiratory Rate 18 05/16/2023 2:10 PM EDT [...] Cancer Screening 01/06/2001 [facility]-Breast Cancer Screening 01/06/2006 [facility]-Pneumococcal Vaccine: 50+ Years (1 of 1 - PCV) 01/06/2006 [facility]-Zoster Vaccines (1 of 2) 01/06/2006 POO-FATDN-72 Vaccine (4 - season) 2023 01/19/2021, 04/14/2020, 03/14/2020 [facility]-DTaP,Tdap,and Td Vaccines (2 - Td or Tdap) 08/16/2033 08/17/2023 [facility]-Hepatitis A Vaccines Aged Out 12/20/2018, 02/05 No longer eligible based on patient's age to complete this topic [facility]-RSV Vaccine: 60+ Years or Completed 08/17/2023 [facility]-Obesity Intervention Completed 024, 07/05/2023, 07/04/2023, Additional history exists [facility]-Influenza Vaccine Completed 02/08/2024 , 12/15/2022, 01/06/2021, Additional history exists HPV Vaccines Aged Out No longer eligi ble based on patient's age to complete this topic [facility]-HIB Vaccines Aged Out No longer e ligible based on patient's age to complete this topic [facility]-IPV Vaccines Aged Out No longer e ligible based on patient's age to complete this topic [facility]-Rotavirus Vaccines Aged Out No lo nger eligible based on patient's age to complete this topic Medical Devices Implanted Type Area Historiographer Device Identifier Shelf Expiration Date Model / Serial / Lot [place] All Suture Qfix 2.8mm - [id number] Implanted:Qty : 1 on 02/04/2023 by Shadi Mims MD at [facility] [place] Right: Shoulder [employer] (Acufex)-[id number] 09/18/2025 [id number] / / [id number] [place] Ultra Twinfix 5.5 - [id number] Implanted:Qty : 2 on 02/04/2023 by Shadi Mims MD at [facility] [employer] [employer] (Acu[employer]x)-[id number] 10/29/2027 [id number] / / [id number] Hip Hip Left: Pelvis Knee Knee Bilateral: Knee Graft Vivigen 5cc - [id number] Implanted:Qty : 1 on 12/30/2021 by Tarik Cadet MD at [facility] N/A: Spine Lumbar [facility]-[id number] 12/03/2022 [id number] / / [id number] Single Inner Setscrew - [id number] Implanted:Qty : 4 on 12/30/2021 by Tarik Cadet MD at [facility] N/A: Spine Lumbar DePuy [employer] [id number] 12/30/2022 [id number] / / Screw 6.0mm Viper Cfx Fen Xtab 45mm - [id number] Implanted:Qty : 2 on 12/30/2021 by Tarik Cadet MD at [facility] N/A: Spine Lumbar [employer] [id number] 12/30/2022 [id number] / / Screw 7.0mm Viper Cfx Fen Xtab 45mm - [id number] Implanted:Qty : 2 on 12/30/2021 by Tarik Cadet MD at [facility] N/A: Spine Lumbar De[employer] [id number] 12/30/2022 [id number] / / Tlif-C Ui 10mm 8deg 01/01 - [id number] Implanted:Qty : 1 on 12/30/2021 by Tarik Cadet MD at [facility] N/A: Spine Lumbar [employer] [id number] 01/04/2025 [id number] / / [id number] Kamari Viper2 Lordotic 40mm - [id number] Implanted:Qty : 1 on 12/30/2021 by Tarik Cadet MD at [facility] N/A: Spine Lumbar DePuy [employer] LP-[id number] 12/29/2022 [id number] / / Kamari Viper2 Lordotic 45mm - [id number] Implanted:Qty : 1 on 12/30/2021 by Tarik Cadet MD at [facility] N/A: Spine Lumbar DeP[employer]ine [employer] [id number] 12/29/2022 [id number] / / [place] [address] [facility] Advance Directives Documents on File Type Date Recorded Patient Site Acquisition Specialist Expl anation Advance Directives and Living Will 12/30/2021 Care Teams Acquisition Marketing Manager Relationship Specialty Start Date End Date Chioma Amber VIVIENNE Alvarez [address] [place] [address] PCP - General 07/18/20 Tarik Cadet MD [address] [address] Surgeon Neurosurgery 05/25/21
--- OUTSIDE RECORDS SUMMARY | 2024-08-20 11:40 | XMS_ITS | Patient Health Record ---
Author Organization [facility] Address [address] [place] [address] Care Team Providers Care Legal Transcriptionist Name Role Phone Charles Beckford Primary Care Provider ChiomaAmber Unavailable [phone] Migration, Provider Unavailable Unavailable Allergies No Known Allergies Results Component Value Reference Range Notes CT Scan : Abdomen and Pelvis with contrast Reviewed date:04/10/2024 11:38:33 AM Interpretation: Performing Lab: Notes/Report: M-Complete Blood Count Auto Diff Reviewed date:04/09/2024 08:52:36 PM Interpretation: Performing Lab: Notes/Report: WBC 12.2 4.8-10.8 K/mm3 RBC 4.01 4.20-5.40 M/mm3 HGB 11.9 12.2-16.2 g/dL HCT 36.0 37.0-47.0 % MCV 89.8 81-99 fl MCH 29.7 27.0-31.2 pg MCHC 33.1 31.8-35.4 g/dL RDW 12.2 11.5-17.5 % PLT 228 142-424 K/mm3 MPV 10.4 7.4-10.4 fl NE% 77.9 37.0-80.0 % LY% 10.3 10-50 % MO% 10.4 1.7-9.3 % EO% 0.7 0.1-12.0 % BA% 0.4 0.1-2.0 % NE# 9.5 1.8-7.8 K/mm3 LY# 1.3 0.7-4.5 K/mm3 MO# 1.3 0.1-1.0 K/mm3 EO# 0.1 0.0-0.4 K/mm3 BA# 0.1 0-0.2 K/mm3 M-Comprehensive Metabolic Pa jarret Reviewed date:04/09/2024 02:40:54 PM Interpretation: Performing Lab: Notes/Report: NA 139 136-145 mmol/L K 3.8 3.5-5.1 mmoL/L CL 105 98-107 mmol/L CO2 24 22.0-30.0 mmol/L GAP 13.8 5-15 mEq/L BUN 19 7-17 mg/dl CREATT 0.90 0.52-1.04 mg/dl GFRAA 75 >60 ML/MIN EGFR 62 >60 ml/min GLU 110 74-100 mg/dl CA 9.1 8.4-10.2 mg/dl BILIT 0.5 0.2-1.3 mg/dl AST 28 14-36 U/L ALT 26 12-78 U/L TP 6.6 6.3-8.2 g/dl ALB 4.3 3.5-5.0 g/dl GLOB 2.3 1.3-3.2 g/dL AGRATIO 1.9 1.1-1.8 ALP 107 38-126 U/L Reason For Referral No Information Medications Medication SIG (Take, Route, Frequency, Duration) Notes Start Date End Date Status Mounjaro 5 MG/0.5 ML 50 UNITS SUBCUTANEOUSLY ONCE A WEEK Compounded *Please review and pick correct strength-formula tion from Medispan options. If intended option is not shown, discontinue and re-order from Quick Search* Active B-12 2500 MCG 1 tab(s) sublingually once a day for 30 day(s) Active traZODone HCl 50 MG 1-2 tablets Orally Once a day at bedtime for 30 days 06/20/2024 Active ZyrTEC Allergy 10 MG 1 tab(s) orally once a day prn Active Hydroxychloroquine Sulfate 200 MG 1 tab(s) orally 2 times a day for 90 days 04/08/2022 Active Estradiol 0.1 MG/GM as directed intravaginally 2 times per week for 30 days 07/27/2022 Active predniSONE 20 MG 1 tablet with food or milk Orally Once a day as directed for rheumatoid arthritis for 30 days 07/02/2024 Active MOBIC 15 MG 1 TAB(S) ORALLY ONCE A DAY for 90 DAYS *Please review for potential replacement for e-prescription and drug interaction check* Active Cyclobenzaprine HCl 10 MG 1 tab(s) orally once a day as needed for spasm for 90 days prn 10/23/2023 Active LaMICtal 150 MG 1 tab(s) orally 2 times a day for 90 days Active Gemtesa 75 MG 1 tab(s) orally once a day for 90 days 08/17/2023 Active Omeprazole 20 MG 1 cap(s) orally once a day for 90 days Active Immunizations Vaccine Route Administration Date Status [...] Problem Status W/U Status Risk Notes Problem 769050894 Lumbago with sciatica, right side (M54.41) Active confirmed Problem 842751161 BMI 31.0-31.9,ad ult (Z68.31) Active confirmed Problem 313794107 BMI 33.0-33.9,ad ult (Z68.33) Active confirmed Problem 52937256 Other chronic pa in (G89.29) Active confirmed Problem 153582377 Gastroesophageal reflux disease, esophagitis presence not specified (K21.9) Active confirmed Problem 760706372 Primary osteoarthritis of both knees (M17.0) Active confirmed Problem 341669953 Frequent falls (R29.6) Active confirmed Problem 99929436 Mood disorder (F39) Active confirmed Problem 258097938 Acute diverticulitis (K57.92) Active confirmed Problem 037039860 Rheumatoid arthritis involving multiple sites with positive rheumatoid factor (M05.79) Active confirmed Problem 813067678 OAB (overactive bladder) (N32.81) Active confirmed Problem 37577738 Iron deficiency anemia, unspecified iron deficiency anemia type (D50.9) Active confirmed Problem 75027908 Lumbar degenerat alyson disc disease (M51.36) Active confirmed Problem 97873494 Arthralgia of multiple sites (M25.50) Active confirmed Problem 87344793 BMI 29.0-29.9,ad ult (Z68.29) Active confirmed Problem 446378651 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) Active confirmed Problem 206516076 Renal cyst (N28.1) Active confirmed Problem 982979754 Acute left-sided low back pain with left-sided sciatica (M54.42) Active confirmed Problem 091182451649438 Primary osteoarthritis of left hip (M16.12) Active confirmed Problem 5881995205891453 Suprapatellar bursitis of left knee (M70.52) Active confirmed Problem 82806859 Esophageal dysphagia (R13.10) Active confirmed Problem 4242429668682053 Suprapatellar bursitis of right knee (M70.51) Active confirmed Problem 917323570 Postoperative examination (Z09) Active confirmed Problem 190000652 Difficulty walki ng (R26.2) Active confirmed Vital Signs Heart Rate 104 /min 04/09/2024 Temperature 98.4 degrees Fahrenheit 04/09/2024 Blood pressure diastolic 74 mm Hg 04/09/2024 Height 63 in 04/09/2024 Blood pressure systolic 130 mm Hg 04/09/2024 Weight 171.0 lbs 04/09/2024 BMI 30.29 kg/m2 04/09/2024 Encounters Encounter Location Date Provider Diagnosis [facility] [address] [place], [place] [address] 06/09/2024 Provider Migration [facility] [address] [place], [place] [address] 04/09/2024 Amber Chioma LLQ pain R10.32 and Acute diverticulitis K57.92 [facility] [address] [place] [address] 10/23/2023 Amber Chioma [facility] [address] [place] [address] 03/31/2024 Amber Chioma OAB (overactive bladder) N32.81 [facility] [address] [facility] [address] [place] [address] 04/12/2024 Amber Chioma LLQ pain R10.32 [facility] [address] [place] [address] 06/20/2024 Amber Chioma [facility] [address] [place] [address] 07/02/2024 Amber Chioma Assessments Encounter Date Diagnosis (ICD Code) Assessment Notes Treatment Notes Treatment Clinical Notes Section Notes 03/31/2024 OAB (overactive bladder) (ICD-10 - N32.81) 04/09/2024 Acute diverticulitis (ICD-10 - K57.92) 04/09/2024 LLQ pain (ICD-10 - R10.32) rec labs and imaging today, suspect diverticuliti s. continue cipro which was started yesterday, add flagyl for more complete coverage. 04/12/2024 LLQ pain (ICD-10 - R10.32) Plan Of Treatment Pending Test Test Name Order Date X ray : Pelvis 06/10/2012 Bone Density 07/09/2006 Mammogram : Diagnostic 07/09/2006 occult blood 05/31/2013 Echocardiogram 05/31/2013 Physical Therapy 08/08/2019 Physical Therapy 03/10/2020 C-Peptide Level 05/07/2010 C-INSULIN 05/07/2010 C-CBC 09/13/2016 C-CMP 09/13/2016 C-LIPID PANEL 09/13/2016 C-LIPID PANEL 10/18/2011 C-TSH 10/18/2011 C-MELINDA 07/19/2011 C-MELINDA 05/30/2013 C-VITAMIN B12 10/18/2011 C-KIDNEY STONE ANALYSIS 01/27/2015 C-ASO TITER 07/19/2011 C-LYQP-MUXXZZ CITRULLINATED PEPTIDE 05/07 Ultrasound : Soft Tissue Abdomen 023 C-TIBC 05/07/2010 M-Erythrocyte Sedimentation Rate 019 M-Lipid Panel 12/20/2018 M-Lipid Panel 10/17/2019 M-Vitamin D 25 Hydroxy 12/20/2018 M-RA Latex Turbid. 12/20/2018 Physical Therapy : Aquatic Therapy 02/22 LIPID PANEL, STANDARD (7600) 07/26/2023 HEMOGLOBIN A1c (496) 07/26/2023 TSH W/REFLEX TO FT4 (35802) 07/26/2023 Future Test Test Name Order Date Mammogram : Left breast 02/10/2010 Insurance Providers Payer Name Payer Address Payer Phone Subscriber Number Group Number Insured Name Patient Relationship to Insured Coverage Start Date Coverage End Date MEDICARE [place] [address] [place] [address] [id number] Nory Ceja Self - patient is the insured [employer] [address] [place] [address] [phone] Nory Ceja Self - patient is the insured [employer] [address] [place] [address] [address] [place] [address] ACL Nory Ceja Self - patient is [...]
--- NOTE | 2024-08-20 12:10 | EXP.PAIN.SOA ---
[facility] Disclaimer: The information contained in this section may have been updated after the patient was seen, as this information can be updated by other users. Medical History Rheumatoid arthritis Motion sickness Kidney stones GERD (gastroesophageal reflux disease) Dental disease Arthritis Surgical History H/O repair of rotator cuff History of lumbar spinal fusion H/O total hip arthroplasty H/O total knee replacement Family History Other Arthritis Diabetes Hyperlipidemia Hypertension Social History Smoking Status: Never smoker alcohol intake: current alcohol intake frequency: holidays/special occasions only current occupational status: other Travel in the last 8 weeks?: None caffeine: Yes PM Subjective & Objective Subjective Subjective:: Patient is a pleasant 69-year-old female who presents today for follow-up of bilateral SI injection on 07/31/2024. Today she rates her pain a 0 out of 10. Patient does state that she had at least 90% improvement but did feel like it gave more relief along the left side than the right. Patient does make mention that she is having a little bit of a catching sensation there at the right side with certain movements. Patient denies any other changes from our office. She is prescribed compounded cream. She does state this still is helping her [place] has been reviewed and is appropriate. Review of Systems: General: No recent weight changes, no fever, no sleep disturbances Respiratory: No cough, no shortness of air, no recurring pulmonary infections Cardiovascular/peripheral vascular: No chest pain, no palpitations, no edema, no shortness of breath Gastrointestinal: No new onset incontinence, normal bowel movements reported Genitourinary: No new onset incontinence Musculoskeletal: Low back pain right-sided Psychiatric: [Normal mood/affect] Neurological: [Denies weakness in extremities], [denies balance issues] Pain at rest (0-10 scale): 0 Objective Objective:: Physical Exam: General: Alert and oriented x3, no acute distress, pleasant and cooperative Lungs: Respirations even and unlabored, symmetrical chest expansion Eyes: PERRL Musculoskeletal: Flexion and extension of lumbar spine somewhat guarded secondary to pain, mild tenderness along the right SI Neurological: Speech clear, no gross sensory deficit Has patient had previous pain injection?: Yes Percent improvement in pain since last injection: 90% Conservative treatment options previously tried: Home exercise plan Length of treatment: Longer than 12 weeks Meds Home Medications and Allergies Home Medications ?Medication ?Instructions ?Recorded ?Confirmed ?Type conjugated estrogens 0.45 mg 0.45 mg PO DAILY Supplement 07/24/17 07/31/24 History tablet (Premarin) ibuprofen 800 mg-famotidine 26.6 1 ea PO DAILY Pain 07/24/17 07/31/24 History mg tablet (Duexis) lamotrigine 150 mg tablet 150 mg PO DAILY rash 07/24/17 07/31/24 History (Lamictal) valacyclovir 1 gram tablet 1,000 mg PO DAILY PRN fever 07/24/17 07/31/24 History (Valtrex) blisters omeprazole 20 mg capsule,delayed 20 mg PO DAILY stomach 08/19/17 07/31/24 History release New Prescriptions to Start Prescriptions: Allergies Allergy/AdvReac Type Severity Reaction Status Date / Time No Known Allergies Allergy Verified 11/01/23 14:07 Assessment and Plan *Assessment and plan (1) Sacroiliitis: Status: Acute Category: Medical Code(s): M46.1 - Sacroiliitis, not elsewhere classified Plan Patient has had significant improvement following her SI injections and does not require any additional injection therapy at this time. We will see how the catching sensation progresses over the next several weeks. Patient will return to clinic in 6 weeks. Patient has been instructed to contact the clinic with any concerns before the next appointment. Dr. Peter has reviewed this note and agrees with this plan of care. This note was dictated using voice recognition software and make contain errors or omissions. All injections are used with Lidocaine, Bupivacaine and dexamethasone. Occasionally urine drug screen is needed to verify patient's compliance with our office pain contract. This is ordered based off specific treatments related to chronic pain with the potential to abuse certain medications.
[2024-08-20 13:55] VITALS: BP 126/76; PULSE 84; RESP 14; O2SAT 97; BMI 29.2
== END 2024-08-20 23:59 | disposition home or self-care (01) ==
LOC: SC.PAIN 11:37
PROVIDERS: PCP Nurse Practitioner Family; Visit Provider Nurse Practitioner Family
DX: M46.1 Sacroiliitis, not elsewhere classified (principal)
CPT/HCPCS: 99212; G0463

== ENCOUNTER 2024-10-01 10:14 | Outpatient (POV) | payer MEDICARE, OTHER, SELFPAY ==
--- OUTSIDE RECORDS SUMMARY | 2024-06-09 17:30 | XMS_ITS ---
Author Organization [facility] Address [address] [place] [address] Care Team Providers Care Foot Orthopedist Name Role Phone BrandtgabrielSarathCharles Primary Care Provider [phone] Amber Bedolla Unavailable [phone] Migration, Provider Unavailable Unavailable [facility] VISIT [facility] Conversion Encounter Medications Medication SIG (Take, Route, Frequency, Duration) Notes Start Date End Date Status Hydroxychloroquine Sulfate 200 MG 1 tab(s) orally 2 times a day; Duration: 90 days 04/08/2022 Active Estradiol 0.1 MG/GM as directed intravaginally 2 times per week; Duration: 30 days 07/27/2022 Active MOBIC 15 MG 1 TAB(S) ORALLY ONCE A DAY; Duration: 90 DAYS *Please review for potential replacement for e-prescription and drug interaction check* Active Cyclobenzaprine HCl 10 MG 1 tab(s) orally once a day as needed for spasm; Duration: 90 days prn 10/23/2023 Active Gemtesa 75 MG 1 tab(s) orally once a day; Duration: 90 days 08/17/2023 Active Mounjaro 5 MG/0.5 ML 50 UNITS SUBCUTANEOUSLY ONCE A WEEK Compounded *Please review and pick [facility]. If intended option is not shown, discontinue and re-order from Quick Search* Active Fluconazole 150 MG 1 tab(s) orally once and repeat in 3 days; Duration: 3 days 04/12/2024 Active Gabapentin 300 MG 1 cap(s) orally 1 tab in morning and 2 tabs at bedtime Active B-12 2500 MCG 1 tab(s) sublingually once a day; Duration: 30 day(s) Active ZyrTEC Allergy 10 MG 1 tab(s) orally once a day prn Active Amoxicillin-Pot Clavulanate 875-125 MG 1 tab(s) orally every 12 hours; Duration: 10 days 04/12/2024 Active Nitrofurantoin Macrocrystal 50 MG 1 cap(s) orally once a day at bedtime; Duration: 90 days Active LaMICtal 150 MG 1 tab(s) orally 2 times a day; Duration: 90 days Active Omeprazole 20 MG 1 cap(s) orally once a day; Duration: 90 days Active Encounters Encounter Location Date Provider Diagnosis [facility] [address] [facility] [address] [place] [address] 06/09/2024 Provider Migration Plan Of Treatment Medication Medication Name Sig Start Date Stop Date Notes Fluconazole 150 MG 1 tab(s) orally once and repeat in 3 days; Duration: 3 days 04/12/2024 Amoxicillin-Pot Clavulanate 875-125 MG 1 tab(s) orally every 12 hours; Duration: 10 days 04/12/2024 Nitrofurantoin Macrocrystal 50 MG 1 cap( s) orally once a day at bedtime; Duration: 90 days LaMICtal 150 MG 1 tab(s) orally 2 ti mes a day; Duration: 90 days Progress Notes * Nory CEJA GDOB:[birth year] (69 yo F)Acc No.[id number]:06/09/2024 Patient: Nory ESTEVES Jossy Provider: Marycruz mack Migration :1955 A ge:69 Y S ex:Female Date:06/09/2024 Address:[address] [place] [address], [id number] Pcp:Charles Beckford Subjective: * Chief Complaints: * 1 . [facility] Conversion Encounter. * Medical History: * Medications: T aking Mounjaro 5 MG/0.5 ML SOLUTION 50 UNITS SUBCUTANEOUSLY ONCE A WEEK , Notes to Pharmacist: Compounded *Please review and pick correct strength-formulation from [facility] options. If intended option is not shown, discontinue and re-order from Quick Search*, Taking Gabapentin 300 MG Capsule 1 cap(s) orally 1 tab in morning and 2 tabs at bedtime , Taking B-12 2500 MCG Tablet 1 tab(s) sublingually once a day , Taking ZyrTEC Allergy 10 MG Tablet 1 tab(s) orally once a day prn , Taking Hydroxychloroquine Sulfate 200 MG Tablet 1 tab(s) orally 2 times a day , Taking Estradiol 0.1 MG/GM Cream as directed intravaginally 2 times per week , Taking MOBIC 15 MG TABLET 1 TAB(S) ORALLY ONCE A DAY , Notes to Pharmacist: *Please review for potential replacement for e-prescription and drug interaction check*, Taking Cyclobenzaprine HCl 10 MG Tablet 1 tab(s) orally once a day as needed for spasm , Notes to Pharmacist: prn, Taking Gemtesa 75 MG Tablet 1 tab(s) orally once a day , Taking Omeprazole 20 MG Capsule Delayed Release 1 cap(s) orally once a day Objective: * Vitals: Assessment: Plan: * Treatment: * * Electronic signature of Shahriar torres Migration on 10/01/2024 at 10:18 AM EDT Sign off status: Pending * Provider: Marycruz mack Migration Date: 06/09/2024 Generated for Will benson/Jennifer/Joseph on: 10/01/2024 10:18 AM EDT
--- OUTSIDE RECORDS SUMMARY | 2024-10-01 10:18 | XMS_ITS | Continuity of Care Document ---
Author Organization [facility], RHEUMATOLOGY [place] Address [address] [place] [id number] Care Team Providers Care Alarm Mechanic Name Role Phone BILL CARDOZA Primary Care Provider DARA INGRAM Engraver Wood [phone] Assessment No assessment recorded. Plan of Treatment Reminders Order Date Submit Date Provider Last Modified By Organization Details Last Modified Time Details Appointments RHEUM RECHECK 2024 11:45A M DARA INGRAM MD Not available Not available Not available Lab CMP, serum or plasma 2024 025 [facility], [address] [place] [address], [id number], 08/28/2024 13:14:15 CBC w/ auto diff 2024 025 [facility], [address] [place] [address], [id number], 08/28/2024 13:26:19 ESR (erythro cyte sediment ation rate), blood 2024 025 [facility], [address] [place] [address], [id number], 08/28/2024 17:48:33 C3 (complem ent), serum or plasma 2024 025 [facility], [address] [place] [address], [id number], 08/29/2024 16:44:31 C4 (complem ent), serum or plasma 2024 025 [facility], [address] [place] [address], [id number], 08/29/2024 16:44:29 dsDNA Ab, serum 2024 025 [facility], [address] [place] [address], [id number], 08/31/2024 19:33:24 C reactive protein, QN, serum or plasma 2024 025 [facility], [address] [place] [address], [id number], 08/28/2024 13:14:13 urinalys is complete , reflex culture 2024 025 [facility], [address] [place] [address], [id number], 08/28/2024 14:43:07 Referral None recorded . Procedures None recorded . Surgeries None recorded . Imaging None recorded . Medication Orders amitript yline 25 mg tablet 2024 025 [facility], [address], [id number], 08/28/2024 12:00:00 Plaqueni l 200 mg tablet 2024 025 [facility], [address], [id number], 08/28/2024 11:59:59 meloxica m 15 mg tablet 2024 025 [facility], [address], [phone], 08/28/2024 11:59:58 Patient TargetsNo targets recorded. Patient InstructionsNo instructions recorded. Reason for Referral None Reported. Results Created Date Observation Date Name Description Value Unit Range Abnormal Flag Note LastModifiedBy Organization Detail LastModifiedTime 08/29/1908/28/2024 C REACT EDWIN PROTE IN C reactive protein 0.21 mg/dL 0.00-0 .49 normal Not Available [facility] [address] [place] [address], [id number], 08/28/2024 13:14:13 08/29/19 25 08/28/2024 COMP. METAB OLIC PANEL glucose 89 mg/dL 74-100 normal Not Available [facility] [address] [place] [address], [id number], 08/28/2024 13:14:15 08/29/19 25 08/28/2024 COMP. METAB OLIC PANEL blood urea nitrogen 24 mg/dL 6-20 high Not Available [facility] [address] [place] [address], [id number], 08/28/2024 13:14:15 08/29/19 25 08/28/2024 COMP. METAB OLIC PANEL creatinine 0.88 mg/dL 0.50-0 .95 normal Not Available [facility] [address] [place] [address], [address], 08/28/2024 13:14:15 08/29/19 25 08/28/2024 COMP. METAB OLIC PANEL BUN/creatini ne ratio 27 (calc ) 10-20 high Not Available [facility] [address] [place] [address], [address], 08/28/2024 13:14:15 08/29/19 25 08/28/2024 COMP. METAB OLIC PANEL sodium 142 mmol/ L 136-14 5 normal Not Available [facility] [address] [place] [address], [id number], 08/28/2024 13:14:15 08/29/19 25 08/28/2024 COMP. METAB OLIC PANEL potassium 3.9 mmol/ L 3.4-5. 0 normal Not Available [facility] [address] [place] [address], [address], 08/28/2024 13:14:15 08/29/19 25 08/28/2024 COMP. METAB OLIC PANEL chloride 105 mmol/ L 98-107 normal Not Available [facility] [address] [place] [address], [address], 08/28/2024 13:14:15 08/29/19 25 08/28/2024 COMP. METAB OLIC PANEL carbon dioxide 21 mmol/ L 22-31 low Not Available [facility] [address] [place] [address], [address], 08/28/2024 13:14:15 08/29/19 25 08/28/2024 COMP. METAB OLIC PANEL anion gap 16 (calc ) 7-25 normal Not Available [facility] [address] [place] [address], [address], 08/28/2024 13:14:15 08/29/19 25 08/28/2024 COMP. METAB OLIC PANEL calcium 9.6 mg/dL 8.6-10 .2 normal Not Available [facility] [address] [place] [address], [address], 08/28/2024 13:14:15 08/29/19 25 08/28/2024 COMP. METAB OLIC PANEL total protein 7.5 g/dL 6.4-8. 3 normal Not Available [facility] [address] [place] [address], [address], 08/28/2024 13:14:15 08/29/19 25 08/28/2024 COMP. METAB OLIC PANEL albumin 4.4 g/dL 3.5-5. 2 normal Not Available [facility] [address] [place] [address], [address], 08/28/2024 13:14:15 08/29/19 25 08/28/2024 COMP. METAB OLIC PANEL globulin 3.1 1.5-4. 5 normal Not Available [facility] [address] [place] [address], [address], 08/28/2024 13:14:15 08/29/19 25 08/28/2024 COMP. METAB OLIC PANEL albumin/glob ulin ratio 1.4 (calc ) 1.1-2. 5 normal Not Available [facility] [address] [place] [address], [address], 08/28/2024 13:14:15 08/29/19 25 08/28/2024 COMP. METAB OLIC PANEL bilirubin, total 0.3 mg/dL 0.1-1. 2 normal Not Available [facility] [address] [place] [address], [id number], 08/28/2024 13:14:15 08/29/19 25 08/28/2024 COMP. METAB OLIC PANEL alkaline phosphatase 117 U/L 30-121 normal Not Available [facility] [address] [place] [address], [phone], 08/28/2024 13:14:15 08/29/19 25 08/28/2024 COMP. METAB OLIC PANEL AST 20 U/L 0-32 normal Not Available [facility] [address] [place], [address], 08/28/2024 13:14:15 08/29/19 25 08/28/2024 COMP. METAB OLIC PANEL ALT 20 U/L 0-33 normal Not Available [facility] [address] [place] [address], [id number], 08/28/2024 13:14:15 08/29/19 25 08/28/2024 COMP. METAB OLIC PANEL eGFR 71 >= 60 normal NOT E New calcu latio n for GFR (CKD- EPI 2020) is formu lated witho ut race adjus tment facto rs at the recom menda tion of the [employer] and [employer] can [employer] ty of Nephr ology . This calcu latio n has not been valid ated in pregn ant women . For pedia tric patie nts refer to https ://berenice pickett.michael gallardo/pr vipul willard s/KDO QI/gf r_cal culat orPed Not Available [facility] [address] [place] [address], [id number], 08/28/2024 13:14:15 08/29/19 25 08/28/2024 COMPL ETE BLOOD COUNT white blood cells 7.1 10*3/ uL 3.8-10 .8 normal Not Available [facility] [address] [place] [address], [address], 08/28/2024 13:26:19 08/29/19 25 08/28/2024 COMPL ETE BLOOD COUNT red blood cells 4.23 10*6/ uL 3.80-5 .20 normal Not Available [facility] [address] [place] [address], [address], 08/28/2024 13:26:19 08/29/19 25 08/28/2024 COMPL ETE BLOOD COUNT hemoglobin 13.2 g/dL 12.0-1 6.0 normal Not Available [facility] [address] [place] [address], [address], 08/28/2024 13:26:19 08/29/19 25 08/28/2024 COMPL ETE BLOOD COUNT hematocrit 38.2 % 35.0-4 7.0 normal Not Available [facility] [address] [place] [address], [address], 08/28/2024 13:26:19 08/29/19 25 08/28/2024 COMPL ETE BLOOD COUNT MCV 90 fL 80-100 normal Not Available [facility] [address] [place] [address], [address], 08/28/2024 13:26:19 08/29/19 25 08/28/2024 COMPL ETE BLOOD COUNT MCH 31 pg 26-35 normal Not Available [facility] [address] [place] [address], [address], 08/28/2024 13:26:19 08/29/19 25 08/28/2024 COMPL ETE BLOOD COUNT MCHC 35 g/dL 32-36 normal Not Available [facility] [address] [place] [address], [address], 08/28/2024 13:26:19 08/29/19 25 08/28/2024 COMPL ETE BLOOD COUNT RDW 13.8 % 11.0-1 5.0 normal Not Available [facility] [address] [place] [address], [address], 08/28/2024 13:26:19 08/29/19 25 08/28/2024 COMPL ETE BLOOD COUNT MPV 8.6 fL 6.2-10 .5 normal Not Available [facility] [address] [place] [address], [address], 08/28/2024 13:26:19 08/29/19 25 08/28/2024 COMPL ETE BLOOD COUNT platelet count 234 10*3/ uL 150-40 0 normal Not Available [facility] [address] [place] [address], [address], 08/28/2024 13:26:19 08/29/19 25 08/28/2024 COMPL ETE BLOOD COUNT neutrophil,a bsolute 3.8 10*3/ uL 1.6-8. 4 normal Not Available [facility] [address] [place] [address], [id number], 08/28/2024 13:26:19 08/29/19 25 08/28/2024 COMPL ETE BLOOD COUNT lymphocyte,a bsolute 2.4 10*3/ uL 0.4-5. 1 normal Not Available [facility] [address] [place] [address], [address], 08/28/2024 13:26:19 08/29/19 25 08/28/2024 COMPL ETE BLOOD COUNT monocyte,abs olute 0.7 10*3/ uL 0.0-1. 2 normal Not Available [facility] [address] [place] [address], [address], 08/28/2024 13:26:19 08/29/19 25 08/28/2024 COMPL ETE BLOOD COUNT eosinophil,a bsolute 0.1 10*3/ uL 0.0-0. 8 normal Not Available [facility] [address] [place] [address], [address], 08/28/2024 13:26:19 08/29/19 25 08/28/2024 COMPL ETE BLOOD COUNT basophil,abs olute 0.1 10*3/ uL 0.0-0. 3 normal Not Available [facility] [address] [place] [address], [address], 08/28/2024 13:26:19 08/29/19 25 08/28/2024 COMPL ETE BLOOD COUNT % neutrophils 54.2 % 42.0-7 8.0 normal Not Available [facility] [address] [place] [address], [address], 08/28/2024 13:26:19 08/29/19 25 08/28/2024 COMPL ETE BLOOD COUNT % lymphocytes 33.4 % 11.0-4 7.0 normal Not Available [facility] [address] [place] [address], [address], 08/28/2024 13:26:19 08/29/19 25 08/28/2024 COMPL ETE BLOOD COUNT % monocytes 9.5 % 0.0-11 .0 normal Not Available [facility] [address] [place] [address], [address], 08/28/2024 13:26:19 08/29/1908/28/2024 COMPL ETE BLOOD COUNT % eosinophils 2.1 % 0.0-7. 0 normal Not Available [facility] [address] [place] [address], [address], 08/28/2024 13:26:19 08/29/19 25 08/28/2024 COMPL ETE BLOOD COUNT % basophils 0.8 % 0.0-3. 0 normal Not Available [facility] [address] [place] [address], [address], 08/28/2024 13:26:19 08/29/19 25 08/28/2024 COMPL ETE BLOOD COUNT nucleated red cells 0.1 % 0.0-0. 9 normal Not Available [facility] [address] [place] [address], [address], 08/28/2024 13:26:19 08/29/19 25 08/28/2024 COMPL ETE BLOOD COUNT nucleated RBCs, absolute 0.01 10*3/ uL not estab. normal Not Available [facility] [address] [place] [address], [address], 08/28/2024 13:26:19 08/29/19 25 08/28/2024 UA WITH CULTU RE IF INDIC ATED color Mona abnormal Not Available [facility] [address] [place] [address], [address], 08/28/2024 14:43:07 08/29/19 25 08/28/2024 UA WITH CULTU RE IF INDIC ATED appearance Clear normal Not Available [facility] [address] [place] [address], [address], 08/28/2024 14:43:07 08/29/19 25 08/28/2024 UA WITH CULTU RE IF INDIC ATED glucose Normal mg/dL normal normal Not Available [facility] [address] [place] [address], [address], 08/28/2024 14:43:07 08/29/19 25 08/28/2024 UA WITH CULTU RE IF INDIC ATED bilirubin Negati ve mg/dL negati ve normal Not Available [facility] [address] [place] [address], [address], 08/28/2024 14:43:07 08/29/19 25 08/28/2024 UA WITH CULTU RE IF INDIC ATED ketone Negati ve mg/dL negati ve normal Not Available [facility] [address] [place] [address], [address], 08/28/2024 14:43:07 08/29/19 25 08/28/2024 UA WITH CULTU RE IF INDIC ATED specific gravity 1.029 1.003- 1.035 normal Not Available [facility] [address] [place] [address], [address], 08/28/2024 14:43:07 08/29/19 25 08/28/2024 UA WITH CULTU RE IF INDIC ATED blood Negati ve /uL negati ve normal Not Available [facility] [address] [place] [address], [address], 08/28/2024 14:43:07 08/29/19 25 08/28/2024 UA WITH CULTU RE IF INDIC ATED pH 5 5.0 - 8.0 normal Not Available [facility] [address] [place] [address], [address], 08/28/2024 14:43:07 08/29/19 25 08/28/2024 UA WITH CULTU RE IF INDIC ATED protein Negati ve mg/dL negati ve normal Not Available [facility] [address] [place] [address], [address], 08/28/2024 14:43:07 08/29/19 25 08/28/2024 UA WITH CULTU RE IF INDIC ATED urobilinogen Normal mg/dL normal normal Not Available [facility] [address] [place] [address], [address], 08/28/2024 14:43:07 08/29/19 25 08/28/2024 UA WITH CULTU RE IF INDIC ATED nitrite Negati ve negati ve normal Not Available [facility] [address] [place] [address], [address], 08/28/2024 14:43:07 08/29/19 25 08/28/2024 UA WITH CULTU RE IF INDIC ATED leukocyte esterase Negati ve /uL negati ve normal Not Available [facility] [address] [place] [address], [address], 08/28/2024 14:43:07 08/29/19 25 08/28/2024 UA WITH CULTU RE IF INDIC ATED mucus, urine 2+ /lpf not establ ished normal Not Available [facility] [address] [place] [address], [address], 08/28/2024 14:43:07 08/29/19 25 08/28/2024 UA WITH CULTU RE IF INDIC ATED RBC, urine 0-2 0-2/hp f normal Not Available [facility] [address] [place] [address], [address], 08/28/2024 14:43:07 08/29/19 25 08/28/2024 UA WITH CULTU RE IF INDIC ATED squamous epi. cells 5-10 0-5/hp f abnormal Not Available [facility] [address] [place] [address], [address], 08/28/2024 14:43:07 08/29/19 25 08/28/2024 UA WITH CULTU RE IF INDIC ATED bacteria Trace /hpf none seen abnormal Not Available [facility] [address] [place] [address], [address], 08/28/2024 14:43:07 08/29/19 25 08/28/2024 UA WITH CULTU RE IF INDIC ATED crystals 3+ negati ve abnormal Calci um Oxala te Not Available [facility] [address] [place] [address], [address], 08/28/2024 14:43:07 08/29/19 25 08/28/2024 UA WITH CULTU RE IF INDIC ATED reflex culture see below normal UA resul ts do not meet cultu re crite jody. Not Available [facility] [address] [place] [address], [address], 08/28/2024 14:43:07 08/29/1908/28/2024 ESR, AUTOM ATED ESR, automated 5 mm 0-29 normal Not Available [facility] [address] [place] [address], [address], 08/28/2024 17:48:33 08/29/1908/29/2024 C4 C4 17 mg/dL 15-57 normal Not Available [facility] [address] [place] [address], [address], 08/29/2024 16:44:29 08/29/1908/29/2024 C3 C3 133 mg/dL 83-193 normal Not Available [facility] [address] [place] [address], [address], 08/29/2024 16:44:31 08/29/19 25 08/31/2024 ANTI DNA (DS) AB, REFLE X TITER DNA (ds) Ab NEGATI VE negati ve normal Not Available [facility] [address] [place] [address], [address], 08/31/2024 19:33:24 Result Notes None recorded. Procedures Surgical History Date Name Laterality Status Provider Name and Address Organization Details Recorded Time total knee replacement completed [facility] 07/15/2023 10:48:51 total replacement of hip completed [facility] 07/15/2023 10:49:04 [facility] 10:49:20 complete repair of rotator cuff completed [facility] 07/15/2023 10:49:42 Imaging Results None recorded. Procedure Notes None recorded. Medical Equipment None Reported. Allergies No known drug allergies Medications Name Sig Start Date Stop Date Status Note LastModified by Organization Details LastModified Time Plaquenil 200 mg tablet Take 1 tablet twice a day by oral route. 2024 active Not Available Not Available Not Avai lable oxybutynin chloride ER 10 mg tablet,ext ended release 24 hr Take 1 tablet every day by oral route. 10/17 completed Not Available Not Available Not Available meloxicam 15 mg tablet Take 1 tablet every day by oral route. 2024 active Not Available Not Available Not Avai lable prednisone 5 mg tablet take 4 tabs x 3 days, 3 tabs x 3 days, 2 tabs x 3 days, 1 tab x 3 days then off. 2023 active Not Available Not Available Not Avai lable amitriptyl ine 25 mg tablet Take 1 tablet every day by oral route. 2024 active Not Available Not Available Not Avai lable baclofen 10 mg tablet Take 1 tablet 3 times a day by oral route. 08/28 completed Not Available Not Available Not Available gabapentin 300 mg capsule Take 1 capsule in the AM and 2 capsules prior to bed 08/28 completed not taking Not Available Not Available Not Available estradiol active Not Available Not Cherry ilable Not Available omeprazole active Not Available Not Av ailable Not Available lamotrigin e active Not Available Not Available Not Available Zyrtec active PRN Not Available Not Availa ble Not Available nitrofuran toin 08/28 completed Not Available Not Available Not Available Mobic 08/28 completed Not Available Not Available Not Available Vitamin B12 active Not Available Not Available Not Available duloxetine 07/14 completed Not Available Not Available Not Available Symbicort 10/17 completed Not Available Not Available Not Available Gemtesa 75 mg tablet Take 1 tablet every day by oral route. 08/28 completed Not Available Not Available Not Available Ozempic 0.25 mg or 0.5 mg (2 mg/3 mL) subcutaneo us pen injector Inject by subcutan eous route. active Not Available Not Available No t Available Vitals Date Recorded Body height Body mass index (BMI) Body weight Respiratory rate Heart rate Oxygen saturation Oxygen saturation in Arterial blood by Pulse oximetry Systolic And Diastolic Provider Name and Address Organization Details Last Updated DateTime 160.02 cm 30.3 kg/m2 99843.3 g 14 /min 84 /min 98 % 98 % 124/70 mm[Hg] Fadia York [facility] 11:44:30 Social History Question Answer Notes LastModified by Organizat ion Details LastModified Time Tobacco Smoking Status Never Smoker Fadiawaldo Arellano [facility] 07/15/2023 10:48:27 What Was The Date Of Your Most Recent Tobacco Screening? 08/28/2024 Information not available 08/28/2024 What Is Your Relationship Status? [email or web address] Information not available 08/28/2024 Sex: Female Functional Status Question Answer Note LastModified by Organization D etails LastModified Time What is your level of alcohol consumption? None Information not available 07/15/2023 Mental Status None recorded. Family History Nothing Reported. Medical History Condition Response Acid Reflux (GERD) Y Arthritis Y Kidney Stones Y Gynecological HistoryNo gynecological history recorded. 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 Worsening degenerati ve changes at L3-4, disc herniation at L5-S1. - she is already referred to pain management and has started physical therapy-- Dr Regan at and pain clinic in [place]- increase gabapentin - injection at L3-4 helped more than L5-S1- injection in the left SI joint also helped Fibromyalgia M 79.7 The symptoms are predominan tly neuropathi c. Her descriptio n of joints are most consistent with neuropathi c symptoms/d ysesthesia s seen in a variety of neuropathi c states including Fibromyalg ia. Neuropathi c medication s form the basis of treatment for these conditions . Narcotics have no role in the treatment of neuropathi c pain. I explained to her that neuropathi c syndromes are generally half-way syndromes that don't go away. - I have encouraged regular low impact aerobic exercise up to 30 minutes per day. If this is unattainab le, recommend a graded exercise program starting with 5 minutes of dedicated cardiovasc ular exercise daily, increasing by 1 minute daily until goal of 30 minutes daily is reached.- I have recommende d conservati ve measures to improve sleep- consider referral to sleep medicine for FERMIN screening- recommend avoiding narcotics studies have shown that narcotics can worsen fibromyalg ia pain.- Counseled on alternativ e therapies that can help with pain including massage therapy, aquatic therapy, physical therapy, acupunctur e, chiropract ics, and psychology evaluation - trial amitripytl ine 25 mg at night before bed Long-term drug therapy [id number] Z79.899 - CBC, CMP every 6 months on current medication s- lupus labs every 6 months- she had her eye exam 06/2023 and everything looked OK- no symptoms of a UTI right now - We discussed the possible side effects of hydroxychl oroquine including headache, nausea, diarrhea, rare retinal pigmentati on, very rare neuromuscu lar toxicity. I recommende d eye exams every 6-12 months to monitor for retinal toxicity Fatigue [id number] R53.83 Health Concerns Section Related Observation LastModified by Organization Detai ls LastModified Time None Recorded Concern Status LastModified by Organization Details LastModified Time None Recorded Payers Encounter Date Sequence Insurance Name Policy Number Policy Leyva Covered Member ID Leyva Member ID Guarantor Name 08/28/2024 2 [employer] (MEDICARE SUPPLEMENT) Nory Ceja [id number] Nory Ceja 08/28/2024 1 [place] Nory Ceja [id number] Nory Ceja OBGyn Episode No OBEpisode recorded.
--- OUTSIDE RECORDS SUMMARY | 2024-10-01 10:18 | XMS_ITS | Patient Health Record ---
Author Organization [facility] Address [address] [place] [address] Care Team Providers Care Finance Professional Name Role Phone Charles Beckford Primary Care Provider ChiomaAmber Unavailable [phone] Migration, Provider Unavailable Unavailable Allergies No Known [...] once a day; Duration: 30 day(s) Active traZODone HCl 50 MG 1-2 tablets Orally Once a day at bedtime; Duration: 30 days 06/20/2024 Active ZyrTEC Allergy 10 MG 1 tab(s) orally once a day prn Active Hydroxychloroquine Sulfate 200 MG 1 tab(s) orally 2 times a day; Duration: 90 days 04/08/2022 Active Estradiol 0.1 MG/GM as directed intravaginally 2 times per week; Duration: 30 days 07/27/2022 Active predniSONE 20 MG 1 tablet with food or milk Orally Once a day as directed for rheumatoid arthritis; Duration: 30 days 07/02/2024 Active MOBIC 15 MG 1 TAB(S) ORALLY ONCE A DAY; Duration: 90 DAYS *Please review for potential replacement for e-prescription and drug interaction check* Active Cyclobenzaprine HCl 10 MG 1 tab(s) orally once a day as needed for spasm; Duration: 90 days prn 10/23/2023 Active LaMICtal 150 MG 1 tab(s) orally 2 times a day; Duration: 90 days Active Gemtesa 75 MG 1 tab(s) orally once a day; Duration: 90 days 08/17/2023 Active Omeprazole 20 MG 1 cap(s) orally once a day; Duration: 90 days Active Immunizations Vaccine Route Administration [...] Problem Status W/U Status Risk Notes Problem Sciatica (66651828) Lumbago with sciatica, right side (M54.41) Active confirmed Problem Body mass index 30.00 to 34.99 (736669743783268) BMI 31.0-31.9,adult (Z68.31) Active confirmed Problem Obese class I (594981207988824) BMI 33.0-33.9,adult (Z68.33) Active confirmed Problem Chronic pain (20111297) Other chronic pain (G89.29) Active confirmed Problem Gastroesophageal reflux disease (425574781) Gastroesophageal reflux disease, esophagitis presence not specified (K21.9) Active confirmed Problem Osteoarthritis of knee (805012923) Primary osteoarthritis of both knees (M17.0) Active confirmed Problem Recurrent falls (416421841) Frequent falls (R29.6) Active confirmed Problem Mood disorder (80102132) Mood disorder (F39) Active confirmed Problem Diverticulitis of colon (870210178) Acute diverticulitis (K57.92) Active confirmed Problem Rheumatoid arthritis (77099935) Rheumatoid arthritis involving multiple sites with positive rheumatoid factor (M05.79) Active confirmed Problem Overactive urinary bladder (disorder) (194061216) OAB (overactive bladder) (N32.81) Active confirmed Problem Iron deficiency anemia (10683331) Iron deficiency anemia, unspecified iron deficiency anemia type (D50.9) Active confirmed Problem Degeneration of lumbar intervertebral disc (85383232) Lumbar degenerative disc disease (M51.36) Active confirmed Problem Joint pain (48223918) Arthralgia of multiple sites (M25.50) Active confirmed Problem BMI 25-29 - overweight (219314227) BMI 29.0-29.9,adult (Z68.29) Active confirmed Problem History of prosthetic arthroplasty of left hip (1499359672833345) 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) Active confirmed Problem Renal cyst (305980353) Renal cyst (N28.1) Active confirmed Problem Sciatica (38265411) Acute left-s ided low back pain with left-sided sciatica (M54.42) Active confirmed Problem Localized, primary osteoarthritis of the pelvic region and thigh (128143467) Primary osteoarthritis of left hip (M16.12) Active confirmed Problem Suprapatellar bursitis of left knee (6097273960838309) Suprapatellar bursitis of left knee (M70.52) Active confirmed Problem Esophageal dysphagia (27972329) Esophageal dysphagia (R13.10) Active confirmed Problem Suprapatellar bursitis of right knee (0719686768466758) Suprapatellar bursitis of right knee (M70.51) Active confirmed Problem History and physical examination, follow-up (500559019) Postoperative examination (Z09) Active confirmed Problem Difficulty walking (674408190) Difficulty walking (R26.2) Active confirmed Vital Signs Heart Rate 104 /min 04/09/2024 Temperature 98.4 degrees Fahrenheit 04/09/2024 Blood pressure diastolic 74 mm Hg 04/09/2024 Height 63 in 04/09/2024 Blood pressure systolic 130 mm Hg 04/09/2024 Weight 171.0 lbs 04/09/2024 BMI 30.29 kg/m2 04/09/2024 Encounters Encounter Location Date Provider Diagnosis [facility] [address] [place] [address] 06/09/2024 Provider Migration [facility] [address] [place] [address] 04/09/2024 Amber Chioma LLQ pain R10.32 and Acute diverticulitis K57.92 [facility] [address] [place] [address] 10/23/2023 Amber Chioma [facility] [address] [facility] [address] [place] [address] 03/31/2024 Amber Chioma OAB (overactive bladder) N32.81 [facility] [address] [facility] [address] [place] [address] 04/12/2024 Amber Chioma LLQ pain R10.32 [facility] [address] [facility] [address] [place] [address] 06/20/2024 Amber Chioma [facility] [address] [facility] [address] [place] [address] 07/02/2024 Amber Chioma [facility] [address] [facility] [address] [place] [address] 08/27/2024 Amber Bedolla Assessments Encounter Date Diagnosis (ICD [...] PANEL 09/13/2016 C-LIPID PANEL 10/18/2011 C-TSH 10/18/2011 C-MEILNDA 07/19/2011 C-MELINDA 05/30/2013 C-VITAMIN B12 10/18/2011 C-KIDNEY STONE ANALYSIS 01/27/2015 C-ASO TITER 07/19/2011 C-OBBX-GDBTLP CITRULLINATED PEPTIDE 05/07 Ultrasound : Soft Tissue Abdomen 023 C-TIBC 05/07/2010 M-Erythrocyte Sedimentation Rate 019 M-Lipid Panel 12/20/2018 M-Lipid Panel 10/17/2019 M-Vitamin D 25 Hydroxy 12/20/2018 M-RA Latex Turbid. 12/20/2018 Physical Therapy : Aquatic Therapy 02/22 LIPID PANEL, STANDARD (7600) 07/26/2023 HEMOGLOBIN A1c (496) 07/26/2023 TSH W/REFLEX TO FT4 (93551) 07/26/2023 Future Test Test Name Order Date Mammogram : Left breast 02/10/2010 Insurance Providers Payer Name Payer Address Payer Phone Subscriber Number Group Number Insured Name Patient Relationship to Insured Coverage Start Date Coverage End Date [place]ICARE [place] [address] [place] [address] [id number] Marcial Nory Self - patient is the insured [employer] [address] [place] [address] [phone] MarcialIsaac ricoine Self - patient is the insured [employer] [address] [place] [address] [address] [place] [address] ACL Nory Ceja Self - patient is [...]
--- OUTSIDE RECORDS SUMMARY | 2024-10-01 10:19 | XMS_ITS | Clinical Summary ---
Author Organization [facility] Address [address] [place] [address] Care Team Providers Care Greens Planter Name Role Phone Amber Bedolla Antonio PALAFOX Primary Care Provider [phone] Tarik Cadet MD Unavailable [phone] Allergies No known active allergies Medications [...] (09/28/2021): Added automatically from request for surgery [id number] Other spondylosis, lumbosacral region 07/05/2021 Weakness 07/05/2021 [...] drink first t mony in the morning (EYE-COOKER CASING) to steady your nerves or to get [...] 01/06/2006 [facility]-Zoster Vaccines (1 of 2) 01/06/2006 [id number] Vaccine (4 - 2023- season) 2023 01/19/2021, 04/14/2020, 03/14/2020 [facility]-Influenza Vaccine (#1) 11/05/202402/07, 12/15/2022, 01/06/2021, Additional history exists [facility]-DTaP,Tdap,and Td Vaccines (2 - Td or Tdap) 08/16/2033 08/17/2023 [facility]-Hepatitis A Vaccines Aged Out 12/20/2018, 02/05 No longer eligible based on patient's age to complete this topic [facility]-RSV Vaccine: 60+ Years or Completed 08/17/2023 [facility]-Obesity Intervention Completed 024, 07/05/2023, 07/04/2023, Additional history exists HPV Vaccines Aged Out [...] this topic Medical Devices Implanted Type Area [employer] Border [employer] Device Identifier Shelf Expiration Date Model / Serial / Lot [place] All Suture Qfix 2.8mm - [id number] Implanted:Qty : 1 on 02/04/2023 by Shadi Mims MD at [facility] [place] Right: Shoulder [employer] (Acu[employer])-[id number] 09/18/2025 [id number] / / [id number] [place] Ultra Twinfix 5.5 - [id number] Implanted:Qty : 2 on 02/04/2023 by Shadi Mims MD at [facility] [place] [employer] ([employer])-[id number] 10/29/2027 [id number] / / [id number] Hip Hip Left: Pelvis Knee Knee Bilateral: Knee Graft Vivigen 5cc - [id number] Implanted:Qty : 1 on 12/30/2021 by Tarik Cadet MD at [facility] N/A: Spine Lumbar [facility]-[id number] 12/03/2022 [id number] / / [id number] Single Inner Setscrew - [id number] Implanted:Qty : 4 on 12/30/2021 by Tarik Cadet MD at [facility] N/A: Spine Lumbar [employer] [id number] 12/30/2022 [id number] / / Screw 6.0mm Viper Cfx Fen Xtab 45mm - [id number] Implanted:Qty : 2 on 12/30/2021 by Tarik Cadet MD at [facility] N/A: Spine Lumbar [employer] [id number] 12/30/2022 [id number] / / Screw 7.0mm Viper Cfx Fen Xtab 45mm - [id number] Implanted:Qty : 2 on 12/30/2021 by Tarik Cadet MD at [facility] N/A: Spine Lumbar [employer] [id number] 12/30/2022 [id number] / / Tlif-C Ui 10mm 8deg 28/10 - [id number] Implanted:Qty : 1 on 12/30/2021 by Tarik Cadet MD at [facility] N/A: Spine Lumbar [employer] [id number] 01/04/2025 [id number] / / [id number] Kamari Viper2 Lordotic 40mm - [id number] Implanted:Qty : 1 on 12/30/2021 by Tarik Cadet MD at [facility] N/A: Spine Lumbar [employer] LP-[id number] 12/29/2022 [id number] / / Kamari Viper2 Lordotic 45mm - [id number] Implanted:Qty : 1 on 12/30/2021 by Tarik Cadet MD at [facility] N/A: Spine Lumbar [employer] LP-[id number] 12/29/2022 [id number] / / [place] [address] [facility] Advance Directives Documents on File Type Date Recorded Patient Brim Raiser Expl anation Advance Directives and Living Will 12/30/2021 Care Teams Greens Planter Relationship Specialty Start Date End Date Amber Bedolla APRN [address] [facility] [address] [place] [id number] PCP - General 07/18/20 Tarik Cadet MD [address] [place] [address] Surgeon Neurosurgery 05/25/21
--- OUTSIDE RECORDS SUMMARY | 2024-10-01 10:19 | XMS_ITS | Referral Summary ---
Author Organization [employer] ([place], [place], [place], [place]) Address [address] [place] [address] Care Team Providers Care Beef Pusher Name Role Phone Unavailable Primary Care Provider Unavailabl e Social History Tobacco Use Types Packs/Day Years Used Date Smoking Tobacco: Never Assessed Food Insecurity Answer Date Recorded Food run [...] Date Rober rded Speak language other than [place] at home Not on file 03/26/2023 Want help with school or training Not on file 03/26/2023 Substance Use Answer Date Recorded Used [...] Plan of Treatment Not on file Insurance [place] [id number] MEDICARE PART A B [employer]
--- OUTSIDE RECORDS SUMMARY | 2024-10-01 10:19 | XMS_ITS | Clinical Summary ---
Author Organization [employer] ([place], [place], [place], [place]) Address [address] [place] [address] Care Team Providers Care Owner Operator Name Role Phone Unavailable Primary Care Provider [...] Date Rober rded Speak language other than Vincentian at home Not on file 03/26/2023 Want [...] Treatment Not on file Insurance [place] [id number] MEDICARE PART A B [employer]
--- OUTSIDE RECORDS SUMMARY | 2024-10-01 10:19 | XMS_ITS | Data Portability ---
Author Organization [facility] TEJAS EtienneS MESA CLOSED Address [address] [place] [address] Care Team Providers Care Supervisor In Charge Name Role Phone BILL CARDOZA Primary Care Provider DARA INGRAM At Risk Specialist Assessment No assessment recorded. Plan of Treatment Reminders Order Date Submit Date Provider Last Modified By Organization Details Last Modified Time Details Appointments RHEUM RECHECK 2024 11:45A M DARA INGRAM MD Not available Not available Not available Lab CMP, serum or plasma 2024 025 [facility], [address] [place] [address], [id number], 08/28/2024 13:14:15 CBC w/ auto diff 2024 025 [facility], [address] [place] [address], [id number], 08/28/2024 13:26:19 ESR (erythro cyte sediment ation rate), blood 2024 025 [facility], [address] [place] [address], [id number], 08/28/2024 17:48:33 C3 (complem ent), serum or plasma 2024 025 [facility], [address] [place] [address], [address], 08/29/2024 16:44:31 C4 (complem ent), serum or plasma 2024 025 [facility], [address] [place] [address], [id number], 08/29/2024 16:44:29 dsDNA Ab, serum 2024 025 [facility], [address] [place] [address], [address], 08/31/2024 19:33:24 C reactive protein, QN, serum or plasma 2024 025 [facility], [address] [place] [address], [address], 08/28/2024 13:14:13 urinalys is complete , reflex culture 2024 025 [facility], [address] [place] [address], [address], 08/28/2024 14:43:07 CMP, serum or plasma 2023 024 [facility], [address] [place] [address], [id number], 01/18/2024 15:56:22 CBC w/ auto diff 2023 024 [facility], [address] [place] [address], [address], 01/18/2024 15:43:41 urinalys is, complete 2023 024 [facility], [address] [place] [address], [id number], 01/18/2024 16:16:33 ESR (erythro cyte sediment ation rate), blood 2023 024 [facility], [address] [place] [address], [address], 01/18/2024 15:41:25 C3 (complem ent), serum or plasma 2023 024 [facility], [address] [place] [address], [phone], 01/20/2024 16:30:33 C4 (complem ent), serum or plasma 2023 024 [facility], [address] [place] [address], [address], 01/20/2024 16:30:31 dsDNA Ab, serum 2023 024 [email or web address] [facility], [address] [place] [address], [address], 01/25/2024 08:09:19 C reactive protein, QN, serum or plasma 2023 024 [facility], [address] [place] [address], [address], 01/18/2024 15:56:19 urinalys is panel, auto 2022 023 [email or web address] On License Of [facility], [address], [place], [address], 12/22/2022 14:14:37 Referral None recorded . Procedures None recorded . Surgeries None recorded . Imaging None recorded . Medication Orders amitript yline 25 mg tablet 2024 025 [facility], [address], [address], 08/28/2024 12:00:00 Plaqueni l 200 mg tablet 2024 025 [facility], [address], [address], 08/28/2024 11:59:59 meloxica m 15 mg tablet 2024 025 [facility], [address], [address], 08/28/2024 11:59:58 Plaqueni l 200 mg tablet [address] [facility], [address], [address], 01/18/2024 14:44:44 meloxica m 15 mg tablet 2023 024 [facility], [address], [address], 01/18/2024 14:43:13 gabapent in 300 mg capsule [address] [facility], [address], [address], 08/28/2024 11:53:27 Plaqueni l 200 mg tablet 2023 024 [facility], [address], [address], 10/18/2023 11:11:01 meloxica m 15 mg tablet 2023 024 [facility], [address], [address], 10/18/2023 11:10:59 predniso ne 5 mg tablet 2023 024 [facility], [address], [address], 10/18/2023 11:18:46 gabapent in 300 mg capsule [address] [facility], [address], [address], 08/28/2024 11:53:27 Plaqueni l 200 mg tablet 2023 024 [facility], [address], [address], 07/15/2023 11:30:43 meloxica m 15 mg tablet 2023 024 [facility], [address], [address], 07/15/2023 11:30:46 gabapent in 300 mg capsule 2023 024 [email or web address] 67 [facility], [address], [address], 08/28/2024 11:53:27 oxybutyn in chloride ER 10 mg tablet,e xtended release 24 hr 2022 024 [facility], [address], [address], 10/18/2023 10:47:22 Patient TargetsNo targets recorded. Patient InstructionsNo instructions recorded. Reason for Referral None Reported. Results Created Date Observation Date Name Description Value Unit Range Abnormal Flag Note LastModifiedBy Organization Detail LastModifiedTime 12/23/1912/22/2022 urina lysis panel , auto Unknown Analyte Clean Catch Not Available [facility] [address], [address], 12/22/2022 13:25:34 12/23/1912/22/2022 urina lysis panel , auto Unknown Analyte Yellow Not Available [facility] [address], [place], [address], 12/22/2022 13:25:34 12/23/1912/22/2022 urina lysis panel , auto Unknown Analyte Clear Not Available [facility] [address], [place], [address], 12/22/2022 13:25:34 12/23/19 23 12/22/2022 urina lysis panel , auto Unknown Analyte 1.020 Not Available [facility] [address], [place], [address], 12/22/2022 13:25:34 12/23/1912/22/2022 urina lysis panel , auto Unknown Analyte 1.003- 1.035 Not Available [facility] [address], [place], [address], 12/22/2022 13:25:34 12/23/19 23 12/22/2022 urina lysis panel , auto Unknown Analyte 5.0 Not Available [facility] [address], [place], [address], 12/22/2022 13:25:34 12/23/1912/22/2022 urina lysis panel , auto Unknown Analyte 5.0-8. 0 Not Available [facility] [address], [place], [address], 12/22/2022 13:25:34 12/23/1912/22/2022 urina lysis panel , auto Unknown Analyte 75 Paula/ul (+) Not Available [facility] [address], [place], [address], 12/22/2022 13:25:34 12/23/1912/22/2022 urina lysis panel , auto Unknown Analyte Negati ve Not Available [facility] [address], [place], [address], 12/22/2022 13:25:34 12/23/1912/22/2022 urina lysis panel , auto Unknown Analyte Negati ve Not Available [facility] [address], [place], [address], 12/22/2022 13:25:34 12/23/1912/22/2022 urina lysis panel , auto Unknown Analyte Negati ve Not Available [facility] [address], [place], [address], 12/22/2022 13:25:34 12/23/1912/22/2022 urina lysis panel , auto Unknown Analyte Negati ve Not Available [facility] [address], [place], [address], 12/22/2022 13:25:34 12/23/1912/22/2022 urina lysis panel , auto Unknown Analyte Negati ve Not Available [facility] [address], [place], [address], 12/22/2022 13:25:34 12/23/1912/22/2022 urina lysis panel , auto Unknown Analyte Normal Not Available [facility] [address], [place], [address], 12/22/2022 13:25:34 12/23/1912/22/2022 urina lysis panel , auto Unknown Analyte Normal Not Available [facility] [address], [place], [address], 12/22/2022 13:25:34 12/23/1912/22/2022 urina lysis panel , auto Unknown Analyte Negati ve Not Available [facility] [address], [place], [address], 12/22/2022 13:25:34 12/23/1912/22/2022 urina lysis panel , auto Unknown Analyte Negati ve Not Available [facility] [address], [place], [address], 12/22/2022 13:25:34 12/23/1912/22/2022 urina lysis panel , auto Unknown Analyte Normal Not Available [facility] [address], [place], [address], 12/22/2022 13:25:34 12/23/1912/22/2022 urina lysis panel , auto Unknown Analyte Normal 1 mg/dl Not Available [facility] [address], [place], [address], 12/22/2022 13:25:34 12/23/1912/22/2022 urina lysis panel , auto Unknown Analyte Negati ve Not Available [facility] [address], [place], [address], 12/22/2022 13:25:34 12/23/1912/22/2022 urina lysis panel , auto Unknown Analyte Negati ve Not Available [facility] [address], [place], [address], 12/22/2022 13:25:34 12/23/19 23 12/22/2022 urina lysis panel , auto Unknown Analyte Negati ve Not Available [facility] [address], [place], [address], 12/22/2022 13:25:34 12/23/19 23 12/22/2022 urina lysis panel , auto Unknown Analyte Negati ve Not Available [facility] [address], [place], [address], 12/22/2022 13:25:34 01/18/20 24 01/18/2024 ESR, AUTOM ATED ESR, automated 10 mm 0-29 normal Not Available [facility] [address] [place] [address], [address], 01/18/2024 15:41:25 01/18/20 24 01/18/2024 COMPL ETE BLOOD COUNT white blood cells 10.5 10*3/ uL 3.8-10 .8 normal Not Available [facility] [address] [place] [address], [address], 01/18/2024 15:43:41 01/18/20 24 01/18/2024 COMPL ETE BLOOD COUNT red blood cells 4.30 10*6/ uL 3.80-5 .20 normal Not Available [facility] [address] [place] [address], [address], 01/18/2024 15:43:41 01/18/20 24 01/18/2024 COMPL ETE BLOOD COUNT hemoglobin 13.8 g/dL 12.0-1 6.0 normal Not Available [facility] [address] [place] [address], [address], 01/18/2024 15:43:41 01/18/20 24 01/18/2024 COMPL ETE BLOOD COUNT hematocrit 39.2 % 35.0-4 7.0 normal Not Available [facility] [address] [place] [address], [address], 01/18/2024 15:43:41 01/18/20 24 01/18/2024 COMPL ETE BLOOD COUNT MCV 91 fL 80-100 normal Not Available [facility] [address] [place] [address], [address], 01/18/2024 15:43:41 01/18/20 24 01/18/2024 COMPL ETE BLOOD COUNT MCH 32 pg 26-35 normal Not Available [facility] [address] [place] [address], [address], 01/18/2024 15:43:41 01/18/2001/18/2024 COMPL ETE BLOOD COUNT MCHC 35 g/dL 32-36 normal Not Available [facility] [address] [place] [address], [address], 01/18/2024 15:43:41 01/18/20 24 01/18/2024 COMPL ETE BLOOD COUNT RDW 13.3 % 11.0-1 5.0 normal Not Available [facility] [address] [place] [address], [address], 01/18/2024 15:43:41 01/18/20 24 01/18/2024 COMPL ETE BLOOD COUNT MPV 8.2 fL 6.2-10 .5 normal Not Available [facility] [address] [place] [address], [address], 01/18/2024 15:43:41 01/18/20 24 01/18/2024 COMPL ETE BLOOD COUNT platelet count 265 10*3/ uL 150-40 0 normal Not Available [facility] [address] [place] [address], [address], 01/18/2024 15:43:41 01/18/20 24 01/18/2024 COMPL ETE BLOOD COUNT neutrophil,a bsolute 6.5 10*3/ uL 1.6-8. 4 normal Not Available [facility] [address] [place] [address], [address], 01/18/2024 15:43:41 01/18/20 24 01/18/2024 COMPL ETE BLOOD COUNT lymphocyte,a bsolute 2.8 10*3/ uL 0.4-5. 1 normal Not Available [facility] [address] [place] [address], [address], 01/18/2024 15:43:41 01/18/20 24 01/18/2024 COMPL ETE BLOOD COUNT monocyte,abs olute 1.0 10*3/ uL 0.0-1. 2 normal Not Available [facility] [address] [place] [address], [address], 01/18/2024 15:43:41 01/18/20 24 01/18/2024 COMPL ETE BLOOD COUNT eosinophil,a bsolute 0.1 10*3/ uL 0.0-0. 8 normal Not Available [facility] [address] [place] [address], [address], 01/18/2024 15:43:41 01/18/20 24 01/18/2024 COMPL ETE BLOOD COUNT basophil,abs olute 0.1 10*3/ uL 0.0-0. 3 normal Not Available [facility] [address] [place] [address], [address], 01/18/2024 15:43:41 01/18/20 24 01/18/2024 COMPL ETE BLOOD COUNT % neutrophils 62.3 % 42.0-7 8.0 normal Not Available [facility] [address] [place] [address], [address], 01/18/2024 15:43:41 01/18/20 24 01/18/2024 COMPL ETE BLOOD COUNT % lymphocytes 26.6 % 11.0-4 7.0 normal Not Available [facility] [address] [place] [address], [address], 01/18/2024 15:43:41 01/18/20 24 01/18/2024 COMPL ETE BLOOD COUNT % monocytes 9.3 % 0.0-11 .0 normal Not Available [facility] [address] [place] [address], [address], 01/18/2024 15:43:41 01/18/20 24 01/18/2024 COMPL ETE BLOOD COUNT % eosinophils 1.3 % 0.0-7. 0 normal Not Available [facility] [address] [place] [address], [address], 01/18/2024 15:43:41 01/18/20 24 01/18/2024 COMPL ETE BLOOD COUNT % basophils 0.5 % 0.0-3. 0 normal Not Available [facility] [address] [place] [address], [address], 01/18/2024 15:43:41 01/18/20 24 01/18/2024 COMPL ETE BLOOD COUNT nucleated red cells 0.2 % 0.0-0. 9 normal Not Available [facility] [address] [place] [address], [address], 01/18/2024 15:43:41 01/18/20 24 01/18/2024 COMPL ETE BLOOD COUNT nucleated RBCs, absolute 0.02 10*3/ uL not estab. normal Not Available [facility] [address] [place] [address], [address], 01/18/2024 15:43:41 01/18/20 24 01/18/2024 C REACT EDWIN PROTE IN C reactive protein 0.82 mg/dL 0.00-0 .49 high Not Available [facility] [address] [place] [address], [address], 01/18/2024 15:56:19 01/18/20 24 01/18/2024 COMP. METAB OLIC PANEL glucose 94 mg/dL 74-100 normal Not Available [facility] [address] [place] [address], [address], 01/18/2024 15:56:22 01/18/20 24 01/18/2024 COMP. METAB OLIC PANEL blood urea nitrogen 24 mg/dL 6-20 high Not Available [facility] [address] [place] [address], [address], 01/18/2024 15:56:22 01/18/20 24 01/18/2024 COMP. METAB OLIC PANEL creatinine 1.05 mg/dL 0.50-0 .95 high Not Available [facility] [address] [place] [address], [address], 01/18/2024 15:56:22 01/18/20 24 01/18/2024 COMP. METAB OLIC PANEL BUN/creatini ne ratio 23 (calc ) 10-20 high Not Available [facility] [address] [place] [address], [address], 01/18/2024 15:56:22 01/18/20 24 01/18/2024 COMP. METAB OLIC PANEL sodium 137 mmol/ L 136-14 5 normal Not Available [facility] [address] [place] [address], [address], 01/18/2024 15:56:22 01/18/20 24 01/18/2024 COMP. METAB OLIC PANEL potassium 4.2 mmol/ L 3.4-5. 0 normal Not Available [facility] [address] [place] [address], [address], 01/18/2024 15:56:22 01/18/20 24 01/18/2024 COMP. METAB OLIC PANEL chloride 98 mmol/ L 98-107 normal Not Available [facility] [address] [place] [address], [address], 01/18/2024 15:56:22 01/18/20 24 01/18/2024 COMP. METAB OLIC PANEL carbon dioxide 23 mmol/ L 22-31 normal Not Available [facility] [address] [place] [address], [address], 01/18/2024 15:56:22 01/18/20 24 01/18/2024 COMP. METAB OLIC PANEL anion gap 16 (calc ) 7-25 normal Not Available [facility] [address] [place] [address], [address], 01/18/2024 15:56:22 01/18/20 24 01/18/2024 COMP. METAB OLIC PANEL calcium 9.5 mg/dL 8.6-10 .2 normal Not Available [facility] [address] [place] [address], [address], 01/18/2024 15:56:22 01/18/20 24 01/18/2024 COMP. METAB OLIC PANEL total protein 7.9 g/dL 6.4-8. 3 normal Not Available [facility] [address] [place] [address], [address], 01/18/2024 15:56:22 01/18/20 24 01/18/2024 COMP. METAB OLIC PANEL albumin 4.7 g/dL 3.5-5. 2 normal Not Available [facility] [address] [place] [address], [address], 01/18/2024 15:56:22 01/18/20 24 01/18/2024 COMP. METAB OLIC PANEL globulin 3.2 1.5-4. 5 normal Not Available [facility] [address] [place] [address], [address], 01/18/2024 15:56:22 01/18/20 24 01/18/2024 COMP. METAB OLIC PANEL albumin/glob ulin ratio 1.5 (calc ) 1.1-2. 5 normal Not Available [facility] [address] [place] [address], [address], 01/18/2024 15:56:22 01/18/20 24 01/18/2024 COMP. METAB OLIC PANEL bilirubin, total 0.3 mg/dL 0.1-1. 2 normal Not Available [facility] [address] [place] [address], [address], 01/18/2024 15:56:22 01/18/20 24 01/18/2024 COMP. METAB OLIC PANEL alkaline phosphatase 114 U/L 30-121 normal Not Available [facility] [address] [place] [address], [address], 01/18/2024 15:56:22 01/18/20 24 01/18/2024 COMP. METAB OLIC PANEL AST 24 U/L 0-32 normal Not Available [facility] [address] [place] [address], [address], 01/18/2024 15:56:22 01/18/20 24 01/18/2024 COMP. METAB OLIC PANEL ALT 24 U/L 0-33 normal Not Available [facility] [address] [place] [address], [address], 01/18/2024 15:56:22 01/18/20 24 01/18/2024 COMP. METAB OLIC PANEL GFR 58 >= 60 abnormal NOT E New calcu latio n for GFR (CKD- EPI 2020) is formu lated witho ut race adjus [facility] [employer] [facility] and [employer] . This calcu latio n has not been valid ated in pregn ant women . For pedia tric patie nts refer to https ://berenice pickett.o rg/pr vipul willard s/SUELLENO QI/gf r_cal culat orPed Not Available [facility] [address] [place] [address], [address], 01/18/2024 15:56:22 01/18/20 24 01/18/2024 URINA LYSIS color Mona normal Not Available [facility] [address] [place] [address], [address], 01/18/2024 16:16:33 01/18/20 24 01/18/2024 URINA LYSIS appearance Clear normal Not Available [facility] [address] [place] [address], [address], 01/18/2024 16:16:33 01/18/20 24 01/18/2024 URINA LYSIS glucose Normal mg/dL normal normal Not Available [facility] [address] [place] [address], [address], 01/18/2024 16:16:33 01/18/20 24 01/18/2024 URINA LYSIS bilirubin NEGATI VE mg/dL negati ve normal DIPST ICK RESUL T RECHE CKED BY MONIQUE Abdalla RECHE CK RESUL T = negat edwin Not Available [facility] [address] [place] [address], [address], 01/18/2024 16:16:33 01/18/20 24 01/18/2024 URINA LYSIS ketone Negati ve mg/dL negati ve normal Not Available [facility] [address] [place] [address], [address], 01/18/2024 16:16:33 01/18/20 24 01/18/2024 URINA LYSIS specific gravity 1.027 1.003- 1.035 normal Not Available [facility] [address] [place] [address], [address], 01/18/2024 16:16:33 01/18/20 24 01/18/2024 URINA LYSIS blood Negati ve /uL negati ve normal Not Available [facility] [address] [place] [address], [address], 01/18/2024 16:16:33 01/18/20 24 01/18/2024 URINA LYSIS pH 5 5.0 - 8.0 normal Not Available [facility] [address] [place] [address], [address], 01/18/2024 16:16:33 01/18/20 24 01/18/2024 URINA LYSIS protein 30 mg/dL negati ve abnormal Not Available [facility] [address] [place] [address], [address], 01/18/2024 16:16:33 01/18/20 24 01/18/2024 URINA LYSIS urobilinogen Normal mg/dL normal normal Not Available [facility] [address] [place], [address], 01/18/2024 16:16:33 01/18/20 24 01/18/2024 URINA LYSIS nitrite Negati ve negati ve normal Not Available [facility] [address] [place] [address], [address], 01/18/2024 16:16:33 01/18/20 24 01/18/2024 URINA LYSIS leukocyte esterase 25 /uL negati ve abnormal Not Available [facility] [address] [place] [address], [address], 01/18/2024 16:16:33 01/18/20 24 01/18/2024 URINA LYSIS mucus, urine 3+ /lpf not establ ished normal Not Available [facility] [address] [place] [address], [address], 01/18/2024 16:16:33 01/18/20 24 01/18/2024 URINA LYSIS hyaline casts 10-20 0 - 2/lpf abnormal Not Available [facility] [address] [place], [address], 01/18/2024 16:16:33 01/18/20 24 01/18/2024 URINA LYSIS WBC, urine 5-10 0-5/hp f abnormal Not Available [facility] [address] [place] [address], [address], 01/18/2024 16:16:33 01/18/20 24 01/18/2024 URINA LYSIS squamous epi. cells 5-10 0-5/hp f abnormal Not Available [facility] [address] [place] [address], [address], 01/18/2024 16:16:33 01/18/20 24 01/18/2024 URINA LYSIS bacteria 2+ /hpf none seen abnormal Not Available [facility] [address] [place] [address], [address], 01/18/2024 16:16:33 01/18/20 24 01/18/2024 URINA LYSIS crystals 1+ negati ve abnormal Calci um Oxala te Pleas e advis e if cultu re is whitney ed - notif y the lab at [phone]. Not Available [facility] [address] [place] [address], [address], 01/18/2024 16:16:33 01/18/20 24 01/20/2024 C4 C4 27 mg/dL 15-57 normal Not Available [facility] [address] [place] [address], [address], 01/20/2024 16:30:31 01/18/20 24 01/20/2024 C3 C3 173 mg/dL 83-193 normal Not Available [facility] [address] [place] [address], [address], 01/20/2024 16:30:33 01/18/20 24 01/25/2024 ANTI DNA (DS) AB, REFLE X TITER DNA (ds) Ab NEGATI VE negati ve normal Not Available [facility] Laboratory [address] [place] [address], [phone], 01/25/2024 20:16:27 08/29/19 25 08/28/2024 C REACT EDWIN PROTE IN C reactive protein 0.21 mg/dL 0.00-0 .49 normal Not Available [facility] [address] [place] [address], [phone], 08/28/2024 13:14:13 08/29/19 25 08/28/2024 COMP. METAB OLIC PANEL glucose 89 mg/dL 74-100 normal Not Available [facility] [address] [place] [address], [address], 08/28/2024 13:14:15 08/29/19 25 08/28/2024 COMP. METAB OLIC PANEL blood urea nitrogen 24 mg/dL 6-20 high Not Available [facility] [address] [place] [address], [phone], 08/28/2024 13:14:15 08/29/19 25 08/28/2024 COMP. METAB OLIC PANEL creatinine 0.88 mg/dL 0.50-0 .95 normal Not Available [facility] [address] [place] [address], [address], 08/28/2024 13:14:15 08/29/19 25 08/28/2024 COMP. METAB OLIC PANEL BUN/creatini ne ratio 27 (calc ) 10-20 high Not Available [facility] [address] [place] [address], [address], 08/28/2024 13:14:15 08/29/19 25 08/28/2024 COMP. METAB OLIC PANEL sodium 142 mmol/ L 136-14 5 normal Not Available [facility] [address] [place] [address], [address], 08/28/2024 13:14:15 08/29/19 25 08/28/2024 COMP. METAB OLIC PANEL potassium 3.9 mmol/ L 3.4-5. 0 normal Not Available [facility] [address] [place] [address], [address], 08/28/2024 13:14:15 08/29/19 25 08/28/2024 COMP. METAB OLIC PANEL chloride 105 mmol/ L 98-107 normal Not Available [facility] [address] [place] [address], [address], 08/28/2024 13:14:15 08/29/19 25 08/28/2024 COMP. METAB OLIC PANEL carbon dioxide 21 mmol/ L 22-31 low Not Available [facility] [address] [place] [address], [address], 08/28/2024 13:14:15 08/29/19 25 08/28/2024 COMP. METAB OLIC PANEL anion gap 16 (calc ) 7-25 normal Not Available [facility] [address] [place] [address], [address], 08/28/2024 13:14:15 08/29/19 25 08/28/2024 COMP. METAB OLIC PANEL calcium 9.6 mg/dL 8.6-10 .2 normal Not Available [facility] [address] [place] [address], [address], 08/28/2024 13:14:15 08/29/19 25 08/28/2024 COMP. METAB OLIC PANEL total protein 7.5 g/dL 6.4-8. 3 normal Not Available [facility] [address] [place] [address], [address], 08/28/2024 13:14:15 08/29/19 25 08/28/2024 COMP. METAB OLIC PANEL albumin 4.4 g/dL 3.5-5. 2 normal Not Available [facility] [address] [place] [address], [address], 08/28/2024 13:14:15 08/29/19 25 08/28/2024 COMP. METAB OLIC PANEL globulin 3.1 1.5-4. 5 normal Not Available [facility] [address] [place] [address], [address], 08/28/2024 13:14:15 08/29/19 25 08/28/2024 COMP. METAB OLIC PANEL albumin/glob ulin ratio 1.4 (calc ) 1.1-2. 5 normal Not Available [facility] [address] [place], [address], 08/28/2024 13:14:15 08/29/19 25 08/28/2024 COMP. METAB OLIC PANEL bilirubin, total 0.3 mg/dL 0.1-1. 2 normal Not Available [facility] [address] [place] [address], [phone], 08/28/2024 13:14:15 08/29/19 25 08/28/2024 COMP. METAB OLIC PANEL alkaline phosphatase 117 U/L 30-121 normal Not Available [facility] [address] [place] [address], [phone], 08/28/2024 13:14:15 08/29/19 25 08/28/2024 COMP. METAB OLIC PANEL AST 20 U/L 0-32 normal Not Available [facility] [address] [place] [address], [address], 08/28/2024 13:14:15 08/29/19 25 08/28/2024 COMP. METAB OLIC PANEL ALT 20 U/L 0-33 normal Not Available [facility] [address] [place] [address], [address], 08/28/2024 13:14:15 08/29/19 25 08/28/2024 COMP. METAB OLIC PANEL eGFR 71 >= 60 normal NOT E New calcu latio n for GFR (CKD- EPI 2020) is formu lated witho ut race adjus tment facto rs at the recom menda tion of the [employer] and Ameri can Socie ty of Nephr ology . This calcu latio n has not been valid ated in pregn ant women . For pedia tric patie nts refer to https :[email or web address] pickett.michael gallardo/pr vipul harperal s/KDO QI/gf r_cal culat orPed Not Available [facility] [address] [place] [address], [address], 08/28/2024 13:14:15 08/29/19 25 08/28/2024 COMPL ETE BLOOD COUNT white blood cells 7.1 10*3/ uL 3.8-10 .8 normal Not Available [facility] [address] [place] [address], [address], 08/28/2024 13:26:19 08/29/19 25 08/28/2024 COMPL ETE BLOOD COUNT red blood cells 4.23 10*6/ uL 3.80-5 .20 normal Not Available [facility] [address] [place] [address], [address], 08/28/2024 13:26:19 08/29/19 25 08/28/2024 COMPL ETE BLOOD COUNT hemoglobin 13.2 g/dL 12.0-1 6.0 normal Not Available [facility] [address] [place] [address], [address], 08/28/2024 13:26:19 08/29/19 25 08/28/2024 COMPL ETE BLOOD COUNT hematocrit 38.2 % 35.0-4 7.0 normal Not Available [facility] [address] [place] [address], [address], 08/28/2024 13:26:19 08/29/19 25 08/28/2024 COMPL ETE BLOOD COUNT MCV 90 fL 80-100 normal Not Available [facility] [address] [place] [address], [address], 08/28/2024 13:26:19 08/29/19 25 08/28/2024 COMPL ETE BLOOD COUNT MCH 31 pg 26-35 normal Not Available [facility] [address] [place] [address], [address], 08/28/2024 13:26:19 08/29/19 25 08/28/2024 COMPL ETE BLOOD COUNT MCHC 35 g/dL 32-36 normal Not Available [facility] [address] [place] [address], [address], 08/28/2024 13:26:19 08/29/19 25 08/28/2024 COMPL ETE BLOOD COUNT RDW 13.8 % 11.0-1 5.0 normal Not Available [facility] [address] [place] [address], [address], 08/28/2024 13:26:19 08/29/19 25 08/28/2024 COMPL ETE BLOOD COUNT MPV 8.6 fL 6.2-10 .5 normal Not Available [facility] [address] [place] [address], [address], 08/28/2024 13:26:19 08/29/19 25 08/28/2024 COMPL ETE BLOOD COUNT platelet count 234 10*3/ uL 150-40 0 normal Not Available [facility] [address] [place] [address], [address], 08/28/2024 13:26:19 08/29/19 25 08/28/2024 COMPL ETE BLOOD COUNT neutrophil,a bsolute 3.8 10*3/ uL 1.6-8. 4 normal Not Available [facility] [address] [place] [address], [address], 08/28/2024 13:26:19 08/29/19 25 08/28/2024 COMPL ETE BLOOD COUNT lymphocyte,a bsolute 2.4 10*3/ uL 0.4-5. 1 normal Not Available [facility] [address] [place] [address], [address], 08/28/2024 13:26:19 08/29/19 25 08/28/2024 COMPL ETE BLOOD COUNT monocyte,abs olute 0.7 10*3/ uL 0.0-1. 2 normal Not Available [facility] [address] [place] [address], [phone], 08/28/2024 13:26:19 08/29/19 25 08/28/2024 COMPL ETE BLOOD COUNT eosinophil,a bsolute 0.1 10*3/ uL 0.0-0. 8 normal Not Available [facility] [address] [place] [address], [address], 08/28/2024 13:26:19 08/29/19 25 08/28/2024 COMPL ETE BLOOD COUNT basophil,abs olute 0.1 10*3/ uL 0.0-0. 3 normal Not Available [facility] [address] [place] [address], [address], 08/28/2024 13:26:19 08/29/19 25 08/28/2024 COMPL ETE BLOOD COUNT % neutrophils 54.2 % 42.0-7 8.0 normal Not Available [facility] [address] [place] [address], [address], 08/28/2024 13:26:19 08/29/19 25 08/28/2024 COMPL ETE BLOOD COUNT % lymphocytes 33.4 % 11.0-4 7.0 normal Not Available [facility] [address] [place] [address], [address], 08/28/2024 13:26:19 08/29/1908/28/2024 COMPL ETE BLOOD COUNT % monocytes 9.5 % 0.0-11 .0 normal Not Available [facility] [address] [place] [address], [address], 08/28/2024 13:26:19 08/29/19 25 08/28/2024 COMPL ETE BLOOD COUNT % eosinophils 2.1 % 0.0-7. 0 normal Not Available [facility] [address] [place] [address], [address], 08/28/2024 13:26:19 08/29/19 25 08/28/2024 COMPL ETE BLOOD COUNT % basophils 0.8 % 0.0-3. 0 normal Not Available [facility] [address] [place] [address], [address], 08/28/2024 13:26:19 08/29/19 25 08/28/2024 COMPL ETE BLOOD COUNT nucleated red cells 0.1 % 0.0-0. 9 normal Not Available [facility] [address] [place] [address], [address], 08/28/2024 13:26:19 08/29/19 25 08/28/2024 COMPL ETE BLOOD COUNT nucleated RBCs, absolute 0.01 10*3/ uL not estab. normal Not Available [facility] [address] [place] [address], [address], 08/28/2024 13:26:19 08/29/19 25 08/28/2024 UA WITH CULTU RE IF INDIC ATED color Mona abnormal Not Available [facility] [address] [place] [address], [address], 08/28/2024 14:43:07 08/29/19 25 08/28/2024 UA WITH CULTU RE IF INDIC ATED appearance Clear normal Not Available [facility] [address] [place] [address], [address], 08/28/2024 14:43:07 08/29/19 25 08/28/2024 UA WITH CULTU RE IF INDIC ATED glucose Normal mg/dL normal normal Not Available [facility] [address] [place] [address], [address], 08/28/2024 14:43:07 08/29/19 25 08/28/2024 UA WITH CULTU RE IF INDIC ATED bilirubin Negati ve mg/dL negati ve normal Not Available [facility] [address] [place] [address], [address], 08/28/2024 14:43:07 08/29/19 25 08/28/2024 UA WITH CULTU RE IF INDIC ATED ketone Negati ve mg/dL negati ve normal Not Available [facility] [address] [place] [address], [address], 08/28/2024 14:43:07 08/29/19 25 08/28/2024 UA WITH CULTU RE IF INDIC ATED specific gravity 1.029 1.003- 1.035 normal Not Available [facility] [address] [place] [address], [address], 08/28/2024 14:43:07 08/29/19 25 08/28/2024 UA WITH CULTU RE IF INDIC ATED blood Negati ve /uL negati ve normal Not Available [facility] [address] [place] [address], [address], 08/28/2024 14:43:07 08/29/19 25 08/28/2024 UA WITH CULTU RE IF INDIC ATED pH 5 5.0 - 8.0 normal Not Available [facility] [address] [place] [address], [address], 08/28/2024 14:43:07 08/29/19 25 08/28/2024 UA WITH CULTU RE IF INDIC ATED protein Negati ve mg/dL negati ve normal Not Available [facility] [address] [place] [address], [address], 08/28/2024 14:43:07 08/29/19 25 08/28/2024 UA WITH CULTU RE IF INDIC ATED urobilinogen Normal mg/dL normal normal Not Available [facility] [address] [place] [address], [address], 08/28/2024 14:43:07 08/29/19 25 08/28/2024 UA WITH CULTU RE IF INDIC ATED nitrite Negati ve negati ve normal Not Available [facility] [address] [place] [address], [address], 08/28/2024 14:43:07 08/29/19 25 08/28/2024 UA WITH CULTU RE IF INDIC ATED leukocyte esterase Negati ve /uL negati ve normal Not Available [facility] [address] [place] [address], [address], 08/28/2024 14:43:07 08/29/19 25 08/28/2024 UA WITH CULTU RE IF INDIC ATED mucus, urine 2+ /lpf not establ ished normal Not Available [facility] [address] [place] [address], [address], 08/28/2024 14:43:07 08/29/19 25 08/28/2024 UA WITH CULTU RE IF INDIC ATED RBC, urine 0-2 0-2/hp f normal Not Available [facility] [address] [place] [address], [address], 08/28/2024 14:43:07 08/29/19 25 08/28/2024 UA WITH CULTU RE IF INDIC ATED squamous epi. cells 5-10 0-5/hp f abnormal Not Available [facility] [address] [place] [address], [address], 08/28/2024 14:43:07 08/29/19 25 08/28/2024 UA WITH CULTU RE IF INDIC ATED bacteria Trace /hpf none seen abnormal Not Available [facility] [address] [place] [address], [address], 08/28/2024 14:43:07 08/29/19 25 08/28/2024 UA WITH CULTU RE IF INDIC ATED crystals 3+ negati ve abnormal Calci um Oxala te Not Available [facility] [address] [place] [address], [address], 08/28/2024 14:43:07 08/29/19 25 08/28/2024 UA WITH CULTU RE IF INDIC ATED reflex culture see below normal UA resul ts do not meet cultu re crite jody. Not Available [facility] [address] [place] [address], [address], 08/28/2024 14:43:07 08/29/19 25 08/28/2024 ESR, AUTOM ATED ESR, automated 5 mm 0-29 normal Not Available [facility] [address] [place], [address], 08/28/2024 17:48:33 08/29/19 25 08/29/2024 C4 C4 17 mg/dL 15-57 normal Not Available [facility] [address] [place] [address], [address], 08/29/2024 16:44:29 08/29/19 25 08/29/2024 C3 C3 133 mg/dL 83-193 normal Not Available [facility] [address] [place] [address], [address], 08/29/2024 16:44:31 08/29/19 25 08/31/2024 ANTI DNA (DS) AB, REFLE X TITER DNA (ds) Ab NEGATI VE negati ve normal Not Available [facility] [address] [place], [address], 08/31/2024 19:33:24 07/18/19 24 07/01/2023 MRI, lumba r spine , w/o contr ast No observ ation record ed. BARCODE Not Available 2023 11:47:27 07/18/19 24 05/11/2023 US, doppl er echoc ardio gram, w/ color flow No observ ation record ed. BARCODE Not Available 2023 11:47:27 Result Notes None recorded. Procedures Surgical History Date Name Laterality Status Provider Name and Address Organization Details Recorded Time total knee replacement completed [facility] 07/15/2023 10:48:51 total replacement of hip completed [facility] 07/15/2023 10:49:04 fusion completed [facility] 07/15/2023 10:49:20 complete repair of rotator cuff completed [facility] 07/15/2023 10:49:42 Imaging Results None recorded. Procedure [...] and Address Organization Details Last Updated DateTime 4 160.02 cm 34.6 kg/m2 35281.2 1 g 14 /min 76 /min 98 % 98 % 138/80 mm[Hg] [facility] 4 10:51:32 Date Recorded Body height Body mass index (BMI) Body weight Respiratory rate Heart rate Oxygen saturation Oxygen saturation in Arterial blood by Pulse oximetry Systolic And Diastolic Provider Name and Address Organization Details Last Updated DateTime 5 160.02 cm 30.3 kg/m2 03898.3 g 14 /min 84 /min 98 % 98 % 124/70 mm[Hg] [facility] 5 11:44:30 Date Recorded Body height Body mass index (BMI) Body weight Respiratory rate Heart rate Oxygen saturation Oxygen saturation in Arterial blood by Pulse oximetry Systolic And Diastolic Provider Name and Address Organization Details Last Updated DateTime 4 160.02 cm 32.4 kg/m2 76361.4 g 14 /min 78 /min 99 % 99 % 134/80 mm[Hg] [facility] 4 10:49:49 Date Recorded Body height Body mass index (BMI) Body weight Provider Name and Address Organization Details Last Updated DateTime 12/22/2022 160.02 cm 31.9 kg/m2 29341.63 g [facility] 13:30:40 Date Recorded Body height Body mass index (BMI) Body weight Respiratory rate Heart rate Oxygen saturation Oxygen saturation in Arterial blood by Pulse oximetry Systolic And Diastolic Provider Name and Address Organization Details Last Updated DateTime 4 160.02 cm 30.1 kg/m2 30244.7 g 14 /min 100 /min 97 % 97 % 138/82 mm[Hg] [facility] 13:55:52 Social History Question Answer Notes LastModified by Organizat ion Details LastModified Time Tobacco Smoking Status Never Smoker [facility] 07/15/2023 10:48:27 What Was The Date [...] History Nothing Reported. Medical History Condition Response Kidney Stones Y Arthritis Y Acid Reflux (GERD) Y Gynecological HistoryNo gynecological history recorded. Obstetrics History GPAL:G 0 P 0 0 0 0 Past Encounters Encounter ID Performer Location Encounter Start Date Encounter Closed Date Diagnosis/Indication Diagnosis SNOMED-CT Code Diagnosis ICD10 Code Diagnosis Note [id number] MD [facility] [address] [address] [facility] [address] [place] [address] 08/31/2022 13:18:44 08/31/2022 14:23:01 Chronic infective cystitis 633074583 N30.20 Continue Macrobid nightly. We will arrange for cystoscopy with possible urethral dilation local [facility] [id number] CHAYO SALINAS MD SURGERY SCHEDULE [address] [place] [address] 11/17/2022 06:57:29 11/17/2022 06:57:56 [id number] MD [facility] [address] [facility] [address] [address] 12/22/2022 12:56:56 12/22/2022 13:48:46 Chronic infective cystitis 926395661 N30.20 Continue Macrobid nightly. 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 - PFTs and echo normal 05/2023- continue hydroxychl oroquine 200 mg BID -- she finds this helful with stiffness and preventing ongoing flares- meloxicam 15 mg daily- requested records from [facility] Fibromyalgia 973469288 M 79.7 The symptoms are predominan tly [...] her that neuropathi c syndromes are generally long lines operator syndromes that don't go away. - I [...] e, chiropract ics, and psychology evaluation - increase gabapentin to 300 mg in the AM and 600 mg at night before bed Long-term drug therapy 847585248 Z79.899 - CBC, CMP every 6 months on current medication s- lupus labs every 6 months- she had her eye exam 06/2023 and everthing looked OK - We discussed the possible side effects of hydroxychl oroquine including headache, nausea, diarrhea, rare retinal pigmentati on, very rare neuromuscu lar toxicity. I recommende d eye exams every 6-12 months to monitor for retinal toxicity Fatigue 75836023 R53.83 Arthritis of facet joint of lumbar spine [id number] M47.816 MRI of the lumbar spin 07/01/2023 which showed cholelithi asis, posterior fusion hardware at L4-5. Worsening degenerati ve changes at L3-4, disc herniation at L5-S1. - she is already referred to pain management and has started physical therapy- increase gabapentin [id number] DARA INGRAM MD RHEUMATOL [facility] [address] [place] [address] 10/18/2023 10:07:32 10/19/2023 04:18:27 Connective tissue disease overlap syndrome 747703716 M35.1 + MELINDA, + RNPinflamm atory arthritis This is not causing her current symptoms. - PFTs and echo normal 05/2023- continue hydroxychl oroquine 200 mg BID -- she finds this helpful with stiffness and preventing ongoing flares- meloxicam 15 mg daily- prednisone taper to have on hand for trip to [place] in December. Arthritis of facet joint of lumbar spine [id number] M47.816 MRI of the lumbar spin 07/01/2023 which showed cholelithi asis, posterior fusion hardware at L4-5. Worsening degenerati ve changes at L3-4, disc herniation at L5-S1. - she is already referred to pain management and has started physical therapy- increase gabapentin - injection at L3-4 helped more than L5-S1- now tender over trochanter ic bursa and SI joint on the left side Fibromyalgia M 79.7 The symptoms are predominan [...] her that neuropathi c syndromes are generally long lines operator syndromes that don't go away. - I [...] e, chiropract ics, and psychology evaluation - continue gabapentin to 300 mg in the AM and 600 mg at night before bed- she finds this helpful Long-term drug therapy 823334554 Z79.899 - CBC, CMP every 6 months on current medication s- lupus labs every 6 months- she had her eye exam 06/2023 and everything looked OK - We discussed the possible side effects of hydroxychl oroquine including headache, nausea, diarrhea, rare retinal pigmentati on, very rare neuromuscu lar toxicity. I recommende d eye exams every 6-12 months to monitor for retinal toxicity Fatigue 88769038 R53.83 [id number] DARA INGRAM MD RHEUMATOL [facility] [address] [place] [address] 01/18/2024 13:21:45 01/19/2024 04:07:14 Connective tissue disease overlap syndrome 230057333 M35.1 + MELINDA 1:160 homogenous , + RF 56 IgM, - CCP antibody, + MATERIALS MANAGER 1.0 (0-0.9), - HLA-B27, otherwise negative ENAinflamm [...] Arthritis of facet joint of lumbar spine 7749201043 [id number] M47.816 MRI of the lumbar spine 07/01/2023 which showed cholelithi asis, posterior fusion hardware at L4-5. Worsening degenerati ve changes at L3-4, disc herniation at L5-S1. - she is already referred to pain management and has started physical therapy-- Dr Regan at and pain clinic in [place]- increase gabapentin - injection at L3-4 helped [...] her that neuropathi c syndromes are generally jail syndromes that don't go away. - I [...] e, chiropract ics, and psychology evaluation - continue gabapentin to 300 mg in the AM and 600 mg at night before bed- she finds this helpful Long-term drug therapy 778324942 Z79.899 - CBC, CMP every 6 months on current medication s- lupus labs every 6 months- she had her eye exam 06/2023 and everything looked OK - We discussed the possible side effects of hydroxychl oroquine including headache, nausea, diarrhea, rare retinal pigmentati on, very rare neuromuscu lar toxicity. I recommende d eye exams every 6-12 months to monitor for retinal toxicity Fatigue 59234302 R53.83 [id number] DARA INGRAM MD RHEUMATOL [facility] [address] [place] [address] 08/28/2024 10:52:28 08/29/2024 04:46:11 Connective tissue disease overlap syndrome 305519908 M35.1 + MELINDA 1:160 homogenous , + RF 56 IgM, - CCP antibody, + MATERIALS MANAGER 1.0 (0-0.9), - HLA-B27, otherwise negative ENAinflamm [...] Arthritis of facet joint of lumbar spine 0907289717 4181221 M47.816 MRI of the lumbar spine 07/01/2023 which showed cholelithi asis, posterior fusion hardware at L4-5. Worsening degenerati ve changes at L3-4, disc herniation at L5-S1. - she is already referred to pain management and has started physical therapy-- Dr Regan at and pain clinic in [place]- increase gabapentin - injection at L3-4 helped [...] her that neuropathi c syndromes are generally long lines operator syndromes that don't go away. - I [...] at night before bed Long-term drug therapy 547677283 Z79.899 - CBC, CMP every 6 months [...] months to monitor for retinal toxicity Fatigue 11692127 R53.83 Health Concerns Section Related Observation LastModified by Organization Detai ls LastModified Time None Recorded Concern Status LastModified by Organization Details LastModified Time None Recorded Advance Directives Directive None Recorded Payers Insurance Date Sequence Insurance Name Policy Number Policy Leyva Covered Member ID Leyva Member ID Guarantor Name 09/04/2024 2 [employer] (MEDICARE SUPPLEMENT) Nory Ceja [id number] Nory Ceja 08/25/2024 1 [place] Nory Ceja [id number] Nory Ceja OBGyn Episode No OBEpisode recorded.
--- NOTE | 2024-10-01 10:29 | A.OFFVIS_ITS ---
[facility] Disclaimer: The information contained in this section may have been updated after the patient was seen, as this information can be updated by other users. Medical History (Updated 10/01/24 @ 10:56 by Mona Lincoln APRN) Rheumatoid arthritis Motion sickness Kidney stones GERD (gastroesophageal reflux disease) Dental disease Arthritis Surgical History H/O repair of rotator cuff History of lumbar spinal fusion H/O total hip arthroplasty H/O total knee replacement Family History Other Arthritis Diabetes Hyperlipidemia Hypertension Social History Smoking Status: Never smoker alcohol intake: current alcohol intake frequency: holidays/special occasions only current occupational status: other Travel in the last 8 weeks?: None caffeine: Yes PM Subjective & Objective Subjective Subjective:: Patient is a pleasant 69-year-old female who presents today for 6-week follow- up. Today she rates her pain a 0 out of 10 while she is sitting or lying. She does however state that the pain will go to at least a 4 if not an 8 out of 10 when she is up walking and moving. Patient does have more severe pain there at her right hip. She states it is a burning, aching sensation. She also has pain in and around her low back at the spine. She does state this pain is interfering with her ability perform activities of daily living such as cooking and cleaning. Patient states she is thinking that she will try and get into see Dr. Ordonez the orthopedic provider to take a look at her right hip. Patient has had a total left hip replacement and has done well with that previously. Patient denies any new trauma or injury. Patient did previously have some catching sensations she was experiencing at her last appointment. She states that she still will occasionally have this. She states today that patient did previously have 90% improvement with her last bilateral SI injections on July 31. Harrison has been reviewed and is appropriate. Review of Systems: General: No recent weight changes, no fever, no sleep disturbances Respiratory: No cough, no shortness of air, no recurring pulmonary infections Cardiovascular/peripheral vascular: No chest pain, no palpitations, no edema, no shortness of breath Gastrointestinal: No new onset incontinence, normal bowel movements reported Genitourinary: No new onset incontinence Musculoskeletal: Right hip pain Psychiatric: [Normal mood/affect] Neurological: [Denies weakness in extremities], [denies balance issues] Pain at rest (0-10 scale): 8 Objective Objective:: Physical Exam: General: Alert and oriented x3, no acute distress, pleasant and cooperative Lungs: Respirations even and unlabored, symmetrical chest expansion Eyes: PERRL Musculoskeletal: Flexion and extension of lumbar [spine] somewhat limited secondary to pain, extreme point tenderness along her right greater trochanteric bursa Neurological: Speech clear, no gross sensory deficit Has patient had previous pain injection?: No Conservative treatment options previously tried: Home exercise plan Length of treatment: Longer than 12 weeks Meds Home Medications and Allergies Home Medications ?Medication ?Instructions ?Recorded ?Confirmed ?Type conjugated estrogens 0.45 mg 0.45 mg PO DAILY Suppleme nt 07/24/17 08/20/24 History tablet (Premarin) ibuprofen 800 mg-famotidine 26.6 1 ea PO DAILY Pain 08/20/24 History mg tablet (Duexis) lamotrigine 150 mg tablet 150 mg PO DAILY rash 8 08/20/24 History (Lamictal) valacyclovir 1 gram tablet 1,000 mg PO DAILY PRN fever 07/24/17 08/20/24 History (Valtrex) blisters omeprazole 20 mg capsule,delayed 20 mg PO DAILY stomac h 08/19/17 08/20/24 History release New Prescriptions to Start Prescriptions: Allergies Allergy/AdvReac Type Severity Reaction Status Date / Time No Known Allergies Allergy Verified 11/01/23 14:07 Assessment and Plan *Assessment and plan (1) Greater trochanteric bursitis of right hip: Status: Acute Category: Medical Code(s): M70.61 - Trochanteric bursitis, right hip Plan Patient is a experiencing extreme point tenderness along her right greater trochanteric bursa during today's visit. I did discuss with the patient that I do believe she would benefit from a bursa injection. Risk and benefits were discussed with patient and she would like to proceed forward with this plan of care. I did student support counselor her that I do think it would be very beneficial for her to continue to follow-up with orthopedics and review all her options regarding the chronic pain. Patient has tried and failed conservative therapy including oral medication, heat and ice, topicals, at home stretching exercise program for 12 weeks. Patient has had chronic low back and hip pain for longer than 6 months. Patient will be scheduled for a right greater trochanteric bursa injection under fluoroscopy. Patient has previously gotten significant relief along the left side with the same injection however has not had any into the right hip. I will also increase her compounded cream concentration. Patient has been instructed to contact the clinic with any concerns before the next appointment. Dr. Peter has reviewed this note and agrees with this plan of care. This note was dictated using voice recognition software and make contain errors or omissions. All injections are used with Lidocaine, Bupivacaine and dexamethasone. Occasionally urine drug screen is needed to verify patient's compliance with our office pain contract. This is ordered based off specific treatments related to chronic pain with the potential to abuse certain medications.
[2024-10-01 10:48] VITALS: BP 138/77; PULSE 88; RESP 14; O2SAT 98; BMI 28.3
== END 2024-10-01 23:59 | disposition home or self-care (01) ==
LOC: SC.PAIN 10:15
PROVIDERS: PCP Internal Medicine Adolescent Medicine; Visit Provider Nurse Practitioner Family
DX: M70.61 Trochanteric bursitis, right hip (principal)
CPT/HCPCS: 99212; G0463

== ENCOUNTER 2024-10-03 16:07 | Outpatient (CLI) | payer MEDICARE, OTHER, SELFPAY ==
--- OUTSIDE RECORDS SUMMARY | 2024-06-09 17:30 | XMS_ITS ---
Author Organization [facility] Address [address] [place] [address] Care Team Providers Care Gas Cutter Name Role Phone BrandtgabrielSarathCharles Primary Care Provider [phone] Amber Bedolla Unavailable [phone] Migration, Provider Unavailable Unavailable [facility] Conversion Encounter Medications Medication SIG (Take, Route, [...] review and pick correct strength-formula tion [facility]. If intended option is not shown, [...] Active Encounters Encounter Location Date Provider Diagnosis [facility] [address] [facility] [address] [place] [address] 06/09/2024 Provider Migration Plan Of Treatment Medication [...] * Nory CEJA GDOB:[birth year] (69 yo F)Acc No.[id number]:06/09/2024 Patient: Nory ESTEVES Jossy Provider: Marycruz mack Migration :1955 A ge:69 Y S ex:Female Date:06/09/2024 Address:[address] [place] [address], [id number] Pcp:Charles Beckford Subjective: * Chief [...] Electronic signature of Shahriar torres Migration on 10/03/2024 at 04:10 PM EDT Sign off status: Pending * Provider: Marycruz mack Migration Date: 06/09/2024 Generated for Will benson/Jennifer/Joseph on: 10/03/2024 04:10 PM EDT
--- OUTSIDE RECORDS SUMMARY | 2024-10-03 08:30 | XMS_ITS ---
Author Organization [facility] PE D [place] Address [address] [place] [address] Care Team Providers Care Commercial Drafter Name Role Phone Charles Beckford Primary Care Provider Amber Bedolla Unavailable [phone] Allergies No Known Allergies Reason For Referral Reason Routine mamm and DEX A at [facility] Diagnosis 1 Medicare annual well ness visit, initial (Z00.00) Referral Organization [facility] RENA WADDELL Referring Provider First Name Amber Referring Provider Last Name Chioma Referring Provider Speciality [facility] Referred Organization [facility] Referred Address [address] [address] [facility], [place],[address],[place] Referred Provider Specialty Diagnostic R adiology General Notes Mei Isabel 2024 02:50:30 PM >all orders sent to [facility] Referral Priority Routine REASON FOR VISIT AWV, [...] Status W/U Status Risk Notes Problem Overweight (608207209) Overweight (E66.3) Active confirmed Vital Signs Temperature 98 degrees Fahrenheit 10/03/2024 Blood pressure systolic 124 mm Hg 10/04/19 25 Blood pressure diastolic 80 mm Hg 025 Heart Rate 78 /min 10/03/2024 Height 63 in 10/03/2024 Weight 169 lbs 10/03/2024 BMI 29.93 kg/m2 10/03/2024 Encounters Encounter Location Date Provider Diagnosis [address] [address] 10/03/2024 Amber Bedolla Medicare annual wellness visit, [...] Oxybutynin Pending Test Test Name Order Date X ray : Hip, Right 10/03/2024 DEXA Hip and Spine - Screening Mammogram: Screening 10/03/2024 Referrals Referral Date Details 10/03/2024 10/03/2024, Routine mamm and DEXA at [facility], [address] [facility], [place], [address], Next Appt Details Follow Up: 1 Year,Kyung chiu n: Progress Notes * Nory CEJA GDOB:[birth year] (69 yo F)Acc No.[id number]:10/03/2024 Progress Notes Patient: Nory ESTEVES Provider: ELIAZAR Albright :1955 A ge:69 Y S ex:Female Date:10/03/2024 Address:[place], [id number] Pcp:Charles Beckford Subjective: * Chief Complaints: * [...] s/p L4-5 fusion and pain management at [facility]. Undergoing nerve blocks to help with pain [...] diabetes, type II. P aternal uncle: diabetes, [place]. P aternal aunt: rheumatoid arthritis, diabetes, HLP, [...] *Please review and pick correct strength-formulation from [employer] options. If intended option is not shown, [...] ormal Mood/Affect. Assessment: * Assessment: 1. [facility], initial - Z00.00 (Primary) [...] I maging: X ray : Hip, Right Clinical Notes: She would like to see [...] Completed true * Provider: ELIAZAR Albright Date: 10/03/2024 Generated for Will benson/Jennifer/eTranbrittniitting on: 10/03/2024 04:10 PM EDT History and Physical Notes * [...] Bedolla , Routine mamm and DEXA at [facility]
--- OUTSIDE RECORDS SUMMARY | 2024-10-03 16:10 | XMS_ITS | Patient Health Record ---
Author Organization [facility] Address [address] [place] [address] Care Team Providers Care Onshore Diver Name Role Phone Charles Beckford Primary Care Provider ChiomaAmber Unavailable [phone] Migration, Provider Unavailable Unavailable Allergies No Known [...] ALP [phone] U/L Reason For Referral Reason Routine mamm and DEX A at [facility] Diagnosis 1 Medicare annual well ness visit, initial (Z00.00) Referral Organization [facility] Referring Provider First Name Amber Referring Provider Last Name Chioma Referring Provider Speciality [facility] Referred Organization [facility] Referred Address [address],[address], Referred Provider Specialty Diagnostic R adiology General Notes Mei Isabel 2024 02:50:30 PM >all orders sent to [facility] Referral Priority Routine Medications Medication SIG (Take, Route, Frequency, Duration) Notes Start Date End Date Status ZyrTEC Allergy 10 MG 1 tab(s) orally once a day prn Active B-12 2500 MCG 1 tab(s) sublingually once a day; Duration: 30 day(s) Active Mounjaro 5 MG/0.5 ML 50 UNITS SUBCUTANEOUSLY ONCE A WEEK Compounded *Please review and pick correct strength-formula tion from Droplr options. If intended option is not shown, discontinue and re-order from Quick Search* Active MOBIC 15 MG 1 TAB(S) ORALLY ONCE A DAY; Duration: 90 DAYS *Please review for potential replacement for e-prescription and drug interaction check* Active Estradiol 0.1 MG/GM as directed intravaginally 2 times per week; Duration: 30 days 07/27/2022 Active Hydroxychloroquine Sulfate 200 MG 1 tab(s) orally 2 times a day; Duration: 90 days 04/08/2022 Active traZODone HCl 50 MG 1-2 tablets Orally Once a day at bedtime; Duration: 30 days prn 06/20/2024 Active LaMICtal 150 MG 1 tab(s) orally 2 times a day; Duration: 90 days Active Omeprazole 20 MG 1 cap(s) orally once a day; Duration: 90 days Active GEMTESA 75 mg 1 tab(s) orally [...] vaccine 3+ year IM Intramuscular 12/10/2013 Administered Problems Problem Type SNOMED Code ICD Code Onset Dates Problem Status W/U Status Risk Notes Problem Overweight (941434207) Overweight (E66.3) Active confirmed Problem Sciatica (75994637) Lumbago with sciatica, right side (M54.41) Active confirmed Problem Body mass index 30.00 to 34.99 (643166103769415) BMI 31.0-31.9,adult (Z68.31) Active confirmed Problem Obese class I (459562749043034) BMI 33.0-33.9,adult (Z68.33) Active confirmed Problem Chronic pain (52626914) Other chronic pain (G89.29) Active confirmed Problem Gastroesophageal reflux disease (420906660) Gastroesophageal reflux disease, esophagitis presence not specified (K21.9) Active confirmed Problem Osteoarthritis of knee (696314267) Primary osteoarthritis of both knees (M17.0) Active confirmed Problem Recurrent falls (773063964) Frequent falls (R29.6) Active confirmed Problem Mood disorder (33185059) Mood disorder (F39) Active confirmed Problem Diverticulitis of colon (464573493) Acute diverticulitis (K57.92) Active confirmed Problem Rheumatoid arthritis (02213316) Rheumatoid arthritis involving multiple sites with positive rheumatoid factor (M05.79) Active confirmed Problem Overactive urinary bladder (disorder) (029901568) OAB (overactive bladder) (N32.81) Active confirmed Problem Iron deficiency anemia (39221323) Iron deficiency anemia, unspecified iron deficiency anemia type (D50.9) Active confirmed Problem Degeneration of lumbar intervertebral disc (74099170) Lumbar degenerative disc disease (M51.36) Active confirmed Problem Joint pain (71333504) Arthralgia of multiple sites (M25.50) Active confirmed Problem BMI 25-29 - overweight (302235781) BMI 29.0-29.9,adult (Z68.29) Active confirmed Problem History of prosthetic arthroplasty of left hip (2036367901662188) 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) Active confirmed Problem Renal cyst (576649997) Renal cyst (N28.1) Active confirmed Problem Sciatica (38335151) Acute left-s ided low back pain with left-sided sciatica (M54.42) Active confirmed Problem Localized, primary osteoarthritis of the pelvic region and thigh (473108414) Primary osteoarthritis of left hip (M16.12) Active confirmed Problem Suprapatellar bursitis of left knee (8453873706081773) Suprapatellar bursitis of left knee (M70.52) Active confirmed Problem Esophageal dysphagia (01148699) Esophageal dysphagia (R13.10) Active confirmed Problem Suprapatellar bursitis of right knee (3391314796823463) Suprapatellar bursitis of right knee (M70.51) Active confirmed Problem History and physical examination, follow-up (198697455) Postoperative examination (Z09) Active confirmed Problem Difficulty walking (512732685) Difficulty walking (R26.2) Active confirmed Vital Signs Heart Rate 78 /min 10/03/2024 Temperature 98 degrees Fahrenheit 10/03/2024 Blood pressure diastolic 80 mm Hg 10/03/2024 Height 63 in 10/03/2024 Blood pressure systolic 124 mm Hg 10/03/2024 Weight 169 lbs 10/03/2024 BMI 29.93 kg/m2 10/03/2024 Encounters Encounter Location Date Provider Diagnosis [facility] [address] [facility] [address] [place] [address] 06/09/2024 Provider Migration [facility] [address] [facility] [address] [place] [address] 04/09/2024 [facility] LLQ pain R10.32 and Acute diverticulitis K57.92 [facility] [address] [address] 10/03/2024 Amberkerry LozadaChioma Medicare annual wellness visit, initial Z00.00 ; [...] mammogram Z12.31 and Asymptomatic postmenopausal state Z78.0 [facility] [address] [place] [address] 10/23/2023 Amber Chioma [facility] [address] [place] [address] 03/31/2024 Amber Chioma OAB (overactive bladder) N32.81 [facility] [address] [place] [address] 04/12/2024 Amber Chioma LLQ pain R10.32 [facility] [address] [place] [address] 06/20/2024 Amber Chioma [facility] [address] [place] [address] 07/02/2024 Amber Chioma [facility] [address] [place], [place] [address] 08/27/2024 Amber Chioma Assessments Encounter Date Diagnosis (ICD Code) Assessment Notes Treatment Notes Treatment Clinical Notes Section Notes 03/31/2024 OAB (overactive bladder) (ICD-10 - N32.81) 04/09/2024 Acute diverticulitis (ICD-10 - K57.92) 04/09/2024 LLQ pain (ICD-10 - R10.32) rec labs and imaging today, suspect diverticuliti s. continue cipro which was started yesterday, add flagyl for more complete coverage. 04/12/2024 LLQ pain (ICD-10 - R10.32) 10/03/2024 Medicare annual wellness visit, initial (ICD-10 [...] state (ICD-10 - Z78.0) Plan Of Treatment Pending Test Test Name Order Date X ray : Hip, Right 10/03/2024 X ray : Pelvis 06/10/2012 Bone Density 07/09/2006 Mammogram : Diagnostic 07/09/2006 occult blood 05/31/2013 DEXA Hip and Spine - Screening 5 Echocardiogram 05/31/2013 Physical Therapy 03/10/2020 Physical Therapy 08/08/2019 C-Peptide Level 05/07/2010 C-INSULIN 05/07/2010 C-CBC 09/13/2016 C-CMP 09/13/2016 C-LIPID PANEL 09/13/2016 C-LIPID PANEL 10/18/2011 C-TSH 10/18/2011 C-MELINDA 07/19/2011 C-MELINDA 05/30/2013 C-VITAMIN B12 10/18/2011 C-KIDNEY STONE ANALYSIS 01/27/2015 C-ASO TITER 07/19/2011 P-HFWP-LCWZWI CITRULLINATED PEPTIDE 05/07 Ultrasound : Soft Tissue Abdomen 023 C-TIBC 05/07/2010 M-Erythrocyte Sedimentation Rate 019 M-Lipid Panel 10/17/2019 M-Lipid Panel 12/20/2018 M-Vitamin D 25 Hydroxy 12/20/2018 M-RA Latex Turbid. 12/20/2018 Physical Therapy : Aquatic Therapy 02/22 Mammogram: Screening 10/03/2024 LIPID PANEL, STANDARD (7600) 07/26/2023 HEMOGLOBIN A1c (496) 07/26/2023 TSH W/REFLEX TO FT4 (34548) 07/26/2023 Future Test Test Name Order Date Mammogram : Left breast 02/10/2010 Insurance Providers Payer Name Payer Address Payer Phone Subscriber Number Group Number Insured Name Patient Relationship to Insured Coverage Start Date Coverage End Date [place] [address] [place] [place] [address] [id number] Nory Ceja Self - patient is the insured [employer] [address] [place] [address] [phone] Nory Ceja Self - patient is the insured VHT [address] [place] [address] [address] [place] [address] [phone] ACL Nory Ceja Self - patient is [...] Rt shoulder 02/2023 Hospitalization History Reason Date(Month/Year) [facility]-right total knee 02/2019 GC- Left total knee 01/2019 UTI 01/1980 x 3 GC - Left hip replacement
--- OUTSIDE RECORDS SUMMARY | 2024-10-03 16:11 | XMS_ITS | Clinical Summary ---
Author Organization [facility] Address [address] [place] [place] [address] Care Team Providers Care Head Track Coach Name Role Phone Amber Bedolla Antonio PALAFOX Primary Care Provider [phone] Tarik Cadet MD Unavailable [phone] Allergies No known active allergies Medications [...] (09/28/2021): Added automatically from request for surgery [id number] Other spondylosis, lumbosacral region 07/05/2021 Weakness 07/05/2021 [...] drink first t mony in the morning (EYE-WASHHOUSE WORKER) to steady your nerves or to get [...] 01/06/2006 UKY-Zoster Vaccines (1 of 2) 01/06/2006 [id number] Vaccine (4 - 2023- season) 2023 01/19/2021, [...] this topic Medical Devices Implanted Type Area Sponge Press Operator Device Identifier Shelf Expiration Date Model / Serial / Lot [place] All Suture Qfix 2.8mm - [id number] Implanted:Qty : 1 on 02/04/2023 by Shadi Mims MD at [facility] Pollok Right: Shoulder [employer] (Acufex)-[id number] 09/18/2025 25-2800 / / [id number] Pollok Ultra Twinfix 5.5 - [id number] Implanted:Qty : 2 on 02/04/2023 by Shadi Mims MD at [facility] [employer]ok [employer] (Acufex)-[id number] 10/29/2027 [id number] / / [id number] Hip Hip Left: Pelvis Knee Knee Bilateral: Knee Graft Vivigen 5cc - [id number] Implanted:Qty : 1 on 12/30/2021 by Tarik Cadet MD at [facility] N/A: Spine Lumbar [facility]-[id number] 12/03/2022 BL-1500-002 / / [id number] Single Inner Setscrew - [id number] Implanted:Qty : 4 on 12/30/2021 by Tarik Cadet MD at [facility] N/A: Spine Lumbar DePuy Spine Sales LP-[id number] 12/30/2022 [id number] / / Screw 6.0mm Viper Cfx Fen Xtab 45mm - [id number] Implanted:Qty : 2 on 12/30/2021 by Tarik Cadet MD at [facility] N/A: Spine Lumbar DePuy Spine [employer] LP-[id number] 12/30/2022 [id number] / / Screw 7.0mm Viper Cfx Fen Xtab 45mm - [id number] Implanted:Qty : 2 on 12/30/2021 by Tarik Cadet MD at [facility] N/A: Spine Lumbar DePuy Spine [employer] LP-[id number] 12/30/2022 [id number] / / Tlif-C Ui 10mm 8deg 28/10 - [id number] Implanted:Qty : 1 on 12/30/2021 by Tarik Cadet MD at [facility] N/A: Spine Lumbar DePuy Spine Sales LP-[id number] 01/04/2025 [id number] / / [id number] Kamari Viper2 Lordotic 40mm - [id number] Implanted:Qty : 1 on 12/30/2021 by Tarik Cadet MD at [facility] N/A: Spine Lumbar DePuy Spine Sales LP-[id number] 12/29/2022 [id number] / / Kamari Viper2 Lordotic 45mm - [id number] Implanted:Qty : 1 on 12/30/2021 by Tarik Cadet MD at [facility] N/A: Spine Lumbar DePuy Spine Sales LP-[id number] 12/29/2022 [id number] / / [place] [address] [facility] Advance Directives Documents on File Type Date Recorded Patient Wire Technician Expl anation Advance Directives and Living Will 12/30/2021 Care Teams Head Track Coach Relationship Specialty Start Date End Date Amber Bedolla APRN [address] [facility] [address] [place] [id number] PCP - General 07/18/20 Tarik Cadet MD [address] [facility] [address] [place] [address] Surgeon Neurosurgery 05/25/21
--- OUTSIDE RECORDS SUMMARY | 2024-10-03 16:11 | XMS_ITS | Referral Summary ---
Author Organization [facility] ([place], [place], [place], [place]) Address [address] [place] [address] Care Team Providers Care Assurance Sourcing Manager Name Role Phone Unavailable Primary Care Provider [...] Date Rober rded Speak language other than Kazakh at home Not on file 03/26/2023 Want [...] Treatment Not on file Insurance [place] [id number] MEDICARE PART A B BANKERS [employer]
--- OUTSIDE RECORDS SUMMARY | 2024-10-03 16:11 | XMS_ITS | Clinical Summary ---
Author Organization [facility] ([place], [place], [place], [place]) Address [address] [place] [address] Care Team Providers Care Official Greeter Name Role Phone Unavailable Primary Care Provider [...] Date Rober rded Speak language other than Cameroonian at home Not on file 03/26/2023 Want [...] Treatment Not on file Insurance [place] [id number] MEDICARE PART A B BANKERS [employer]
--- NOTE | 2024-10-03 16:12 | XR_ITS ---
FINAL REPORT CLINICAL HISTORY: RIGHT HIP PAIN FINDINGS: An AP view of the pelvis and a frog leg view of the right hip were obtained. There is degenerative joint disease of the right hip. There is no acute osseous abnormality of the right hip or pelvis. Postoperative changes from left hip arthroplasty are noted. Soft tissues are unremarkable. IMPRESSION: No acute osseous abnormality of the right hip. Degenerative joint disease. Authenticated and ERN
== END 2024-10-03 23:59 | disposition home or self-care (01) ==
LOC: RAD 16:08
PROVIDERS: PCP Nurse Practitioner Family; Visit Provider Nurse Practitioner Family
DX: M17.11 Unilateral primary osteoarthritis, right knee (principal)
CPT/HCPCS: 73502

== ENCOUNTER 2024-10-16 14:27 | Outpatient (CLI) | payer MEDICARE, OTHER, SELFPAY ==
--- OUTSIDE RECORDS SUMMARY | 2024-06-09 17:30 | XMS_ITS ---
Author Organization [facility] Address [address] [place] [address] Care Team Providers Care Pill Machine Operator Name Role Phone BrandtgabrielSarathCharles Primary Care Provider Amber Bedolla Unavailable [phone] Migration, Provider Unavailable Unavailable [facility] Conversion Encounter Medications Medication SIG [...] review and pick correct strength[facility]formula [facility]. If intended option is not [...] Active Encounters Encounter Location Date Provider Diagnosis [facility] [address] [facility] [address] [place] [address] 06/09/2024 Provider Migration Plan Of Treatment Medication [...] * Nory CEJA GDOB:[birth year] (69 yo F)Acc No.[id number]:06/09/2024 Patient: Nory ESTEVES Jossy Provider: Marycruz mack Migration :1955 A ge:69 Y S ex:Female Date:06/09/2024 Address:[address] [place] [address], [place] Pcp:Charles Beckford Subjective: * Chief [...] Electronic signature of Shahriar torres Migration on 10/16/2024 at 02:30 PM EDT Sign off status: Pending * Provider: Marycruz mack Migration Date: 0 06/09/2024 Generated for Will benson/Jennifer/Joseph on: 10/16/2024 02:30 PM EDT
--- OUTSIDE RECORDS SUMMARY | 2024-10-03 08:30 | XMS_ITS ---
Author Organization [facility] [place] Address [address] [place] [address] Care Team Providers Care Rn Obgyn Name Role Phone [email or web address] Primary Care Provider Amber Bedolla Unavailable [phone] Allergies No Known Allergies Results Component Value Reference Range Notes X ray : Hip, Right Reviewed date:10/09/2024 09:16:21 AM Interpretation: Performing Lab: Notes/Report: Reason For Referral Reason Routine mamm and DEX A at [facility] Diagnosis 1 Medicare annual well ness visit, initial (Z00.00) Referral Organization [facility] RENA WADDELL Referring Provider First Name Amber Referring Provider Last Name Chioma Referring Provider [facility] Referred Organization [facility] Referred Address [address] [facility] [address] [facility], [place],[address],[place] Referred Provider Specialty Diagnostic R adiology General Notes Mei Isabel 2024 02:50:30 PM >all orders sent to [facility] Referral Priority Routine REASON FOR VISIT AWV, Rt hip pain - tender to touch Medications Medication SIG (Take, Route, Frequency, Duration) Notes Start Date End Date Status B-12 2500 MCG 1 tab(s) sublingually once a day; Duration: 30 day(s) Active Mounjaro 5 MG/0.5 ML 50 UNITS SUBCUTANEOUSLY ONCE A WEEK Compounded *Please review and pick correct strength-formula tion from [employer] options. If intended option is not shown, discontinue and re-order from Quick Search* Active traZODone HCl 50 MG 1-2 tablets Orally Once a day at bedtime; Duration: 30 days prn 06/20/2024 Active GEMTESA 75 mg 1 tab(s) orally once a day; Duration: 90 days Active MOBIC 15 MG 1 TAB(S) ORALLY ONCE A DAY; Duration: 90 DAYS *Please review for potential replacement for e-prescription and drug interaction check* Active LaMICtal 150 MG 1 tab(s) orally 2 times a day; Duration: 90 days Active Omeprazole 20 MG 1 cap(s) orally once a day; Duration: 90 days Active ZyrTEC Allergy 10 MG 1 tab(s) orally once a day prn Active Estradiol 0.1 MG/GM as directed intravaginally 2 times per week; Duration: 30 days 07/27/2022 Active Hydroxychloroquine Sulfate 200 MG 1 tab(s) orally 2 times a day; Duration: 90 days 04/08/2022 Active Problems Problem Type SNOMED Code ICD Code Onset Dates Problem Status W/U Status Risk Notes Problem Overweight (795591422) Overweight (E66.3) Active confirmed Vital Signs Temperature 98 degrees Fahrenheit 10/03/2024 Blood pressure systolic 124 mm Hg 10/04/19 25 Blood pressure diastolic 80 mm Hg 025 Heart Rate 78 /min 10/03/2024 Height 63 in 10/03/2024 Weight 169 lbs 10/03/2024 BMI 29.93 kg/m2 10/03/2024 Encounters Encounter Location Date Provider Diagnosis [address] [address] 10/03/2024 Amber Bedolla Medicare annual wellness visit, initial Z00.00 ; Arthralgia of multiple sites M25.50 ; Renal cyst N28.1 ; Mood disorder F39 ; Rheumatoid arthritis involving multiple sites with positive rheumatoid factor M05.79 ; OAB (overactive bladder) N32.81 ; Right hip pain M25.551 ; Overweight E66.3 ; Body mass index [BMI] 29.0-29.9, adult Z68.29 ; Degeneration of intervertebral disc of lumbar region with discogenic back pain and lower extremity pain M51.362 ; Visit for screening mammogram Z12.31 and Asymptomatic postmenopausal state Z78.0 Assessments Encounter Date Diagnosis (ICD Code) Assessment Notes Treatment Notes Treatment Clinical Notes Section Notes 10/03/2024 Medicare annual wellness visit, initial (ICD-10 - Z00.00) Mamm and DEXA this fall 10/03/2024 Arthralgia of multiple sites (ICD-10 - M25.50) multiple specialists following 10/03/2024 Renal cyst (ICD-10 - N28.1) stable on imaging, urology did not recommend routine FU 10/03/2024 Mood disorder (ICD-10 - F39) stable on lamictal 10/03/2024 Rheumatoid arthritis involving multiple sites with positive rheumatoid factor (ICD-10 - M05.79) rheumatology following 10/03/2024 OAB (overactive bladder) (ICD-10 - N32.81) stable, side effects with Gemtesa and Oxybutynin 10/03/2024 Right hip pain (ICD-10 - M25.551) She would like to see Dr. Ordonez to discuss her right hip pain. Needs updated imaging and likely MRI first 10/03/2024 Overweight (ICD-10 - E66.3) improving, continue efforts 10/03/2024 Body mass index [BMI] 29.0-29.9, adult (ICD-10 - Z68.29) 10/03/2024 Degeneration of intervertebral disc of lumbar region with discogenic back pain and lower extremity pain (ICD-10 - M51.362) 10/03/2024 Visit for screening mammogram (ICD-10 - Z12.31) 10/03/2024 Asymptomatic postmenopausal state (ICD-10 - Z78.0) Plan Of Treatment Medication Medication Name Sig Start Date Stop Date Notes GEMTESA 75 mg 1 tab(s) orally once a day; Duration: 90 days Treatment Notes Assessment Notes Medicare annual wellness visit, initial Mamm and DEXA this fall Arthralgia of multiple sites multiple sp ecialists following Renal cyst stable on imaging, u rology did not recommend routine FU Mood disorder stable on lamictal Rheumatoid arthritis involvi ng multiple sites with positive rheumatoid factor rheumatology following OAB (overactive bladder) stable, side ef fects with Gemtesa and Oxybutynin Pending Test Test Name Order Date DEXA Hip and Spine - Screening Mammogram: Screening 10/03/2024 Referrals Referral Date Details 10/03/2024 10/03/2024, Routine mamm and DEXA at [facility], [address], [place], [address], Next Appt Details Follow Up: 1 Year,Kyung chiu: Progress Notes * Nory CEJA GDOB:[birth year] (69 yo F)Acc No.[id number]:10/03/2024 Progress Notes Patient: Nory ESTEVES Provider: ELIAZAR Albright :1955 A ge:69 Y S ex:Female Date:10/03/2024 Address:[place], [id number] Pcp:Charles Beckford Subjective: * Chief Complaints: * 1 . AWV. 2. Rt hip pain - tender to touch. * HPI: g en: 69 yr old female presents today for annual Medicare wellness, chronic disease FU. No acute concerns aside from worsening right lower back and hip pain. She is followed routinely by orthopedics, Rheumatology for RA and fibromyalgia, NS at for LS DDD s/p L4-5 fusion and pain management at [facility]. Undergoing nerve blocks to help with pain relief and diagnostic purposes because of significantly increased back pain and radicular pain in the left leg with difficulty ambulating - that left sided pain has essentially resolved with the last epidural injection but now having symptoms more on the right. Multiple falls but no injuries requiring attention. Taking compounded GLP1I and has tolerated well, weight down around 25 pounds OAB symptoms improved some, no recent UTI No recent dysphagia as long as taking PPI Using topical compound from pain management instead of voltaren. * ROS: F UNCTIONAL STATUS: ADLS I ndependent for all ADL/IADL. R ESPIRATORY: no S hortness of breath. n o C hest pain. n o?Chest congestion. n o C ough. C ARDIOLOGY: Dizziness y es, o ccasional vertigo. n o C hest pain. n o P alpitations. L eg edema y es, o ccasional. n o S hortness of breath. C ONSTITUTIONAL: no L oss of appetite. n o F ever. n o W eakness. W eight loss yes, i ntentional. D ERMATOLOGY: no R oma. G ASTROENTEROLOGY: Heartburn y es. n o V omiting. n o A bdominal pain. n o D iarrhea. n o C onstipation. M USCULOSKELETAL: See HPI Y es. N EUROLOGY: no H eadache. T ingling numbness y es. n o S eizures. n o I nsomnia. D izziness y es, w ith movement of head, chronic, recurrent, improves with zyrtec. O PTHALMOLOGY: Reviewed, No Symptoms Reported: Y es. P SYCHOLOGY: no D epression, m ood stable on lamictal. n o S leep disturbances. U ROLOGY: no D ifficulty urinating. U rinary incontinence y es, s mall amount, with coughing or sneezing. * Medical History: H ormone replacement therapy, Bilat knee osteoarthritis, GERD with stricture of esophagus, Mood disorder, LS DDD, Renal cysts, Rheumatoid arthritis. * Surgical History: e ye surgery during childhood , EGD August 2017 with chronic gastritis, negative biopsies , right knee meniscus repair 2017, Dr Rowan , Left total knee replacement 01/2019, right total knee replacement 02/2019, LEFT hip replacement 2019, Lumbar fusion L4-L5 12/2021, Rt shoulder 02/2023. * Hospitalization/Major Diagno stic Procedure: p regsalinascy x 3 , UTI 01/1980, [facility]- Left total knee 01/2019, [facility]-right total knee 02/2019, [facility] - Left hip replacement . * Family History: F ather: alive, prostate cancer and cirrhosis. M other: , hypertension, diabetes, type II, vitamin B 12 defiency, macular degeneration. P aternal Grand Father: . P aternal Grand Mother: . M aternal Grand Father: , rheumatoid arthritis. M aternal Grand Mother: , diabetes, type II. P aternal uncle: diabetes, [place]. P aternal aunt: rheumatoid arthritis, diabetes, HLP, macular degeneration. M aternal aunt: breast cancer, diabetes, CHF, HLP, osteoarthritis, macular degeneration. C hildren: rheumatoid arthritis, oldest daughter breast cancer, diagnosed with Cancer. 1 brother(s) , 1 sister(s) - healthy. 3 daughter(s) . . * Social History: S moking: no A re you a:: nonsmoker. R ecreational drug use: no. Exercise: yes, Therapy. Home smoke detector use: yes. Caffeine: yes, frequency:1 soda qd. Living Will: Yes. Alcohol: socially, Type: wine , Frequency:rarely ,Years: , Determination:. Sexually active: yes. Travel outside [place]: yes, [place]. Occupation: Retired. * Medications: T aking Mounjaro 5 MG/0.5 ML SOLUTION 50 UNITS SUBCUTANEOUSLY ONCE A WEEK , Notes to Pharmacist: Compounded *Please review and pick correct strength-formulation from [employer] options. If intended option is not shown, discontinue and re-order from Quick Search*, Taking B-12 2500 MCG Tablet 1 tab(s) [...] for e-prescription and drug interaction check*, Taking Omeprazole 20 MG Capsule Delayed Release 1 cap(s) orally once a day , Taking LaMICtal 150 MG Tablet 1 tab(s) orally 2 times a day , Taking traZODone HCl 50 MG Tablet 1-2 tablets Orally Once a day at bedtime , Notes to Pharmacist: prn, Discontinued Cyclobenzaprine HCl 10 MG Tablet 1 tab(s) orally once a day as needed for spasm , Notes to Pharmacist: prn, Discontinued Gemtesa 75 MG Tablet 1 tab(s) orally once a day , Discontinued predniSONE 20 MG Tablet 1 tablet with food or milk Orally Once a day as directed for rheumatoid arthritis , Medication List reviewed and reconciled with the patient * Allergies: N .K.D.A. Objective: * Vitals: N urse: dw, Pain: 0, Temp: 98, RR: 20, HR: 78, BP: 124/80, Ht: 63, Wt: 169, BMI:29.93. * Examination: G eneral Examination: General P leasant and Cooperative, NAD on RA. Oral cavity: n o lesions. Heart: R RR. 1/6 systolic murmur. Lungs: c lear to auscultation. Abdomen: s oft, NT/ND, BS present, no masses palpated, no hepatosplenomegaly. Neurologic Exam: no focal signs,, Alert and oriented x 3.? Skin: n ormal, no rash. Peripheral pulses: n ormal (2+) bilaterally. Extremities: n o clubbing, no edema, bilat anterior knee incisions are well healed, bilat feet with mild bunion deformity and early hammer toe deformity bilat 2nd toe. mild thickening 2-4 MCP bilat. neck s upple, no thyromegaly, no lymphadenopathy. Psych N ormal Mood/Affect. Assessment: * Assessment: 1. M diane annual wellness visit, initial - Z00.00 (Primary) 2 . A rthralgia of multiple sites - M25.50 3 . R enal cyst - N28.1 4 . M ood disorder - F39 5 . R heumatoid arthritis involving multiple sites with positive rheumatoid factor - M05.79 6 . O AB (overactive bladder) - N32.81 ? 7 . R ight hip pain - M25.551 8 . O verweight - E66.3 ?9. B ethan mass index [BMI] 29.0-29.9, adult - Z68.29 1 0. D egeneration of intervertebral disc of lumbar region with discogenic back pain and lower extremity pain - M51.362? 11. V isit for screening mammogram - Z12.31 1 2. A symptomatic postmenopausal state - Z78.0 Plan: * Treatment: 2. A rthralgia of multiple sites Notes: multiple specialists following 3. R enal cyst Notes: stable on imaging, urology did not recommend routine FU 4. M ood disorder Notes: stable on lamictal 5. R heumatoid arthritis involving multiple sites with positive rheumatoid factor Notes: rheumatology following 6. O AB (overactive bladder) Start GEMTESA tablet, 75 mg, 1 tab(s), orally, once a day, 90 days, 90 Tablet, Refills 1. ? Notes: stable, side effects with Gemtesa and Oxybutynin 7. R ight hip pain I maging: X ray : Hip, Right * Clinical Notes: She would like to see Dr. Ordonez to discuss her right hip pain. Needs updated imaging and likely MRI first??8.?Overweight? Clinical Notes: improving, continue efforts??9.?Visit for screening mammogram?Imaging: Mammogram: Screening* 10.?Asymptomatic postmenopausal state?Imaging: DEXA Hip and Spine - Screening* * Procedure Codes: G 0439 ANNUAL WELLNESS VST; PPS SUBSQT VST, G8399 PT W/DXA DOCUMENT OR ORDER, 1123F ADVANCED DIRECTIVE - HAS A LIVING WILL, G9899 Screening diagnostic,film,digital results documented and reviewed, 3017F COLORECTAL CA SCREEN DOC REV, G8420 BMI documented as normal, no follow up required., G8510 NEGATIVE SCREENING F/U NOT REQUIRED, G9903 Pt scrn tbco id as non user, G8783 NORMAL BP READING DOC F/U NOT RQR * Preventive Medicine: Counseling: L iving will H as living will. SHEILA Screening: F alls: Future screening for fall risks H ave you had two or more falls in the past year? Y es, H ave you had any falls with injury in the past year? N o. Depression Screening: P HQ 2 F eeling down depressed or hopeless N o. Immunizations: i nfluenza H ave you had a flu shot since the most recent November 05 ? Y es. P neumonia vaccine: Status for Older Adults A re you up-to-date on your pneumonia vaccine? yes or no P CV 20, UTD. T dap U TD. H epatitis A C ompleted series. S hingrix D iscussed and will consider. C OVID C ompleted series. R SV vaccination C ompleted for season. Screening / Special Tests: M ammogram n eeds to be scheduled. P ap Smear?2013. C olonoscopy C ologuard normal 2023. L juanito Cancer Screening N ot indicated - nonsmoker. * Follow Up: 1 Year,prn * * Sign off status: Completed true * Provider: ELIAZAR Albright Date: 0 10/03/2024 Generated for Will benson/Jennifer/eTransmitting on: 0 10/16/2024 02:30 PM EDT History and Physical Notes * Examination Category Sub-Category Detail Notes Category Not es General Examination Heart: RRR. 1/6 systolic mur mur Lungs: clear to auscultatio n Abdomen: soft, [...] oriented x 3 Oral cavity: no lesions Peripheral pulses: normal (2+) bilatera lly neck supple, no thyromega ly, no lymphadenopathy General Pleasant and Coopera tive, NAD on RA Psych Normal Mood/Affect Consultation Request Notes Referral Date Referring Provider Referred Provider Not es 10/03/2024 Amber Bedolla , Routine mamm and DEXA at [facility]
--- OUTSIDE RECORDS SUMMARY | 2024-10-09 05:16 | XMS_ITS ---
Author Organization [facility] Address [address] [place] [address] Care Team Providers Care Game Programmer Name Role Phone Charles Beckford Primary Care Provider Amber Bedolla [place] [phone] Encounters Encounter Location Date Provider Diagnosis [facility] [address] [place] [address] 10/09/2024 Amber Bedolla Right hip pain M25.551 and Hip arthritis M16.10 Assessments Encounter Date Diagnosis (ICD Code) Assessment Notes Treatment Notes Treatment Clinical Notes Section Notes 10/09/2024 Right hip pain (ICD-10 - M25.551) 10/09/2024 Hip arthritis (ICD-10 - M16.10) Plan Of Treatment Pending Test Test Name Order Date MRI : Hip, Right 10/09/2024 Progress Notes * Nory CEJA GDOB:[birth year] (69 yo F)Acc No.[id number]:10/09/2024 Patient: Oni TRACETULIO Nory Jossy :1955 A ge:69 Y S ex:Female Address:[place] [address] Subjective: * Chief Complaints: * * Medical History: * Surgical History: * Hospitalization/Major Diagno stic Procedure: * Medications: Objective: * Vitals: * Physical Examination: Assessment: * Assessment: 1. R ight hip pain - M25.551 2 . H ip arthritis - M16.10 Plan: * Treatment: * 2.?Hip arthritis?Imaging: MRI : Hip, Right* No Auth neededPoMei dickinson 10/09/2024 09:19:40 AM EDT > * * Procedure Codes: * true * Date: Generated for Will benson/Jennifer/Joseph on: 0 10/16/2024 02:30 PM EDT
--- NOTE | 2024-10-16 14:31 | MR_ITS ---
FINAL REPORT CLINICAL HISTORY: RIGHT HIP PAIN PAIN IN GROIN PAIN WORST WHEN INVERTING FOOT FINDINGS: Multiplanar and multisequence imaging of the pelvis and right hip were obtained without contrast. There is artifact related to hardware in the left hip from left hip arthroplasty. There is no fracture or acute bone marrow edema within the right hip. There is degenerative joint disease of the right hip with joint space narrowing and osteophyte formation. There is no evidence of AVN. No convincing labral tear. The ligamentum teres is not well-visualized. Signal intensity within the muscular structure is within normal limits. No joint effusion or other acute soft tissue abnormality. A small cystic lesion of the left adnexa is likely of ovarian origin. This measures 2.3 cm. IMPRESSION: 1. No acute osseous abnormality of the right hip. Degenerative joint disease. 2. Small left adnexal cystic lesion, likely of ovarian origin. This is not a normal finding in a postmenopausal patient but given small size, favor benign etiology. Recommend follow-up. Authenticated and ERN
--- OUTSIDE RECORDS SUMMARY | 2024-10-16 14:31 | XMS_ITS | Clinical Summary ---
Author Organization [facility] Address [address] [place] [place] [address] Care Team Providers Care Inventory Technician Name Role Phone Amber Bedolla Antonio PALAFOX Primary Care Provider [phone] Tarik Cadet MD Unavailable [phone] Allergies No known active allergies Medications [...] (09/28/2021): Added automatically from request for surgery [id number] Other spondylosis, lumbosacral region 07/05/2021 Weakness 07/05/2021 [...] drink first t mony in the morning (EYE-MECHANISM ASSEMBLER) to steady your nerves or to get [...] Screening 1955 [facility]-Medicare Annual Wellness (AWV) 1955 [facility]-/Child/Adol SDOH Screenings 1955 UKY- SDOH Screenings 01/06/1974 UKY-Adult SDOH Screenings 01/06/1974 CT Colonography 01/06/2001 Colonoscopy 01/06/2001 FIT-DNA 01/06/2001 FIT 01/06/2001 FOBT 01/06/2001 Sigmoidoscopy 01/06/2001 UKY-Colorectal Cancer Screening 01/06/2001 UKY-Breast Cancer Screening 01/06/2006 UKY-Pneumococcal Vaccine: 50+ Years (1 of 1 - PCV) 01/06/2006 UKY-Zoster Vaccines (1 of 2) 01/06/2006 GPU-[id number] Vaccine (4 - 2023- season) 2023 01/19/2021, [...] this topic Medical Devices Implanted Type Area Real Estate Operations Manager Device Identifier Shelf Expiration Date Model / Serial / Lot [place] All Suture Qfix 2.8mm - [id number] Implanted:Qty : 1 on 02/04/2023 by Shadi Mims MD at [facility] [place] Right: Shoulder [employer] (Acufex)-[id number] 09/18/2025 25-2800 / / [id number] [place] Ultra Twinfix 5.5 - [id number] Implanted:Qty : 2 on 02/04/2023 by Shadi Mims MD at [facility] [place] [employer] (Acufex)-[id number] 10/29/2027 [id number] / / [id number] Hip Hip Left: Pelvis Knee Knee Bilateral: Knee Graft Vivigen 5cc - [id number] Implanted:Qty : 1 on 12/30/2021 by Tarik Cadet MD at [facility] N/A: Spine Lumbar [facility]-[id number] 12/03/2022 BL-1500-002 / / [id number] Single Inner Setscrew - [id number] Implanted:Qty : 4 on 12/30/2021 by Tarik Cadet MD at [facility] N/A: Spine Lumbar DePuy Spine Sales LP-[id number] 12/30/2022 [id number] / / Screw 6.0mm Viper Cfx Fen Xtab 45mm - [id number] Implanted:Qty : 2 on 12/30/2021 by Tarik Cadet MD at [facility] N/A: Spine Lumbar DePuy Spine Sales LP-[id number] 12/30/2022 [id number] / / Screw 7.0mm Viper Cfx Fen Xtab 45mm - [id number] Implanted:Qty : 2 on 12/30/2021 by Tarik Cadet MD at [facility] N/A: Spine Lumbar DePuy Spine Sales LP-[id number] 12/30/2022 [id number] / / Tlif-C Ui 10mm 8deg 28/10 - [id number] Implanted:Qty : 1 on 12/30/2021 by Tarik Cadet MD at [facility] N/A: Spine Lumbar DePuy Spine Sales LP-[id number] 01/04/2025 [id number] / / [id number] Kamari Viper2 Lordotic 40mm - [id number] Implanted:Qty : 1 on 12/30/2021 by Tarik Cadet MD at [facility] N/A: Spine Lumbar DePuy Spine Sales LP-[id number] 12/29/2022 [id number] / / Kamari Viper2 Lordotic 45mm - [id number] Implanted:Qty : 1 on 12/30/2021 by Tarik Cadet MD at [facility] N/A: Spine Lumbar DePuy Spine Sales LP-[id number] 12/29/2022 [id number] / / [place] [address] [facility] Advance Directives Documents on File Type Date Recorded Patient Timber Trimmer Expl anation Advance Directives and Living Will 12/30/2021 Care Teams Inventory Technician Relationship Specialty Start Date End Date Amber Bedolla APRN [address] [facility] [address] [place] [id number] PCP - General 07/18/20 Tarik Cadet MD [address] [facility] [address] [place] [address] Surgeon Neurosurgery 05/25/21
--- OUTSIDE RECORDS SUMMARY | 2024-10-16 14:31 | XMS_ITS | Patient Health Record ---
Author Organization [facility] Address [address] [place] [address] Care Team Providers Care Oil Heaterman Name Role Phone Charles Beckford Primary Care Provider ChiomaAmber Unavailable [phone] Migration, Provider Unavailable Unavailable Allergies No Known Allergies Results Component Value Reference Range Notes M-Complete Blood Count Auto Diff Reviewed date:04/09/2024 [...] 0.1 0.0-0.4 K/mm3 BA# 0.1 0-0.2 K/mm3 CT Scan : Abdomen and Pelvis with contrast Reviewed date:04/10/2024 11:38:33 AM Interpretation: Performing Lab: Notes/Report: X ray : Hip, Right Reviewed date:10/09/2024 09:16:21 AM Interpretation: Performing Lab: Notes/Report: M-Comprehensive Metabolic Pa jarret Reviewed date:04/09/2024 02:40:54 [...] Reason Routine mamm and DEX A at [facility] Diagnosis 1 Medicare annual well ness visit, initial (Z00.00) Referral Organization [facility] Referring Provider First Name Amber Referring Provider Last Name Chioma Referring Provider Speciality Family Pra ctice Referred Organization [facility] Referred Address [address] [place] [facility] [address] [facility], [place], [place],[address], Referred Provider Specialty Diagnostic R adiology General Notes Mei Isabel 2024 02:50:30 PM >all orders sent to [facility] Referral Priority Routine Medications Medication SIG (Take, Route, Frequency, Duration) Notes Start Date End Date Status ZyrTEC Allergy 10 MG 1 tab(s) orally once a day prn Active B-12 2500 MCG 1 tab(s) sublingually once a day; Duration: 30 day(s) Active Mounjaro 5 MG/0.5 ML 50 UNITS SUBCUTANEOUSLY ONCE A WEEK Compounded *Please review and pick correct strength-formula tion from [employer] options. If intended option is not shown, [...] Status W/U Status Risk Notes Problem Overweight (129878132) Overweight (E66.3) Active confirmed Problem Sciatica (46484415) Lumbago with sciatica, right side (M54.41) Active confirmed Problem Body mass index 30.00 to 34.99 (240296333133682) BMI 31.0-31.9,adult (Z68.31) Active confirmed Problem Obese class I (500073490386503) BMI 33.0-33.9,adult (Z68.33) Active confirmed Problem Chronic pain (22529240) Other chronic pain (G89.29) Active confirmed Problem Gastroesophageal reflux disease (398812452) Gastroesophageal reflux disease, esophagitis presence not specified (K21.9) Active confirmed Problem Osteoarthritis of knee (836208912) Primary osteoarthritis of both knees (M17.0) Active confirmed Problem Recurrent falls (576411253) Frequent falls (R29.6) Active confirmed Problem Mood disorder (40021364) Mood disorder (F39) Active confirmed Problem Diverticulitis of colon (101131958) Acute diverticulitis (K57.92) Active confirmed Problem Rheumatoid arthritis (46697386) Rheumatoid arthritis involving multiple sites with positive rheumatoid factor (M05.79) Active confirmed Problem Overactive urinary bladder (disorder) (011891713) OAB (overactive bladder) (N32.81) Active confirmed Problem Iron deficiency anemia (30981983) Iron deficiency anemia, unspecified iron deficiency anemia type (D50.9) Active confirmed Problem Degeneration of lumbar intervertebral disc (08004831) Lumbar degenerative disc disease (M51.36) Active confirmed Problem Joint pain (92183669) Arthralgia of multiple sites (M25.50) Active confirmed Problem BMI 25-29 - overweight (735354484) BMI 29.0-29.9,adult (Z68.29) Active confirmed Problem History of prosthetic arthroplasty of left hip (5325258796600185) 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) Active confirmed Problem Renal cyst (407803003) Renal cyst (N28.1) Active confirmed Problem Sciatica (76692833) Acute left-s ided low back pain with left-sided sciatica (M54.42) Active confirmed Problem Localized, primary osteoarthritis of the pelvic region and thigh (775163522) Primary osteoarthritis of left hip (M16.12) Active confirmed Problem Suprapatellar bursitis of left knee (4182849375533815) Suprapatellar bursitis of left knee (M70.52) Active confirmed Problem Esophageal dysphagia (88863344) Esophageal dysphagia (R13.10) Active confirmed Problem Suprapatellar bursitis of right knee (4628846743579819) Suprapatellar bursitis of right knee (M70.51) Active confirmed Problem Arthritis of hip (94815460) Hip arthritis (M16.10) Active confirmed Problem History and physical examination, follow-up (170103497) Postoperative examination (Z09) Active confirmed Problem Difficulty walking (407153118) Difficulty walking (R26.2) Active confirmed Vital Signs Heart Rate 78 /min 10/03/2024 Temperature 98 degrees Fahrenheit 10/03/2024 Blood pressure diastolic 80 mm Hg 10/03/2024 Height 63 in 10/03/2024 Blood pressure systolic 124 mm Hg 10/03/2024 Weight 169 lbs 10/03/2024 BMI 29.93 kg/m2 10/03/2024 Encounters Encounter Location Date Provider Diagnosis [facility] [address] [facility] [address] [place] [address] 06/09/2024 Provider Migration [facility] [address] [facility] [address] [place] [address] 04/09/2024 [facility] LLQ pain R10.32 and Acute diverticulitis K57.92 [facility] [address] [address] 10/03/2024 Amber Bedolla Medicare annual wellness visit, [...] mammogram Z12.31 and Asymptomatic postmenopausal state Z78.0 [facility] [address] [place] [address] 10/23/2023 Amber Chioma [facility] [address] [place] [address] 03/31/2024 Amber Chioma OAB (overactive bladder) N32.81 [facility] [address] [place] [address] 04/12/2024 Amber Chioma LLQ pain R10.32 [facility] [address] [place] [address] 06/20/2024 Amber Chioma [facility] [address] [place] [address] 07/02/2024 Amber Chioma [facility] [address] [place] [address] 08/27/2024 Amber Chioma [facility] [address] [place] [address] 10/09/2024 Amber Chioma Right hip pain M25.5 51 and Hip arthritis M16.10 Assessments Encounter Date [...] sites (ICD-10 - M25.50) multiple specialists following 10/09/2024 Right hip pain (ICD-10 - M25.551) 10/09/2024 Hip arthritis (ICD-10 - M16.10) 10/03/2024 Renal cyst (ICD-10 - N28.1) stable [...] Order Date MRI : Hip, Right 10/09/2024 X ray : Pelvis 06/10/2012 Bone Density 07/09/2006 Mammogram : Diagnostic 07/09/2006 occult blood 05/31/2013 DEXA Hip and Spine - Screening 5 Echocardiogram 05/31/2013 Physical Therapy 08/08/2019 Physical Therapy 03/10/2020 C-Peptide Level 05/07/2010 C-INSULIN 05/07/2010 C-CBC 09/13/2016 C-CMP 09/13/2016 C-LIPID PANEL 09/13/2016 C-LIPID PANEL 10/18/2011 C-TSH 10/18/2011 C-MELINDA 05/30/2013 C-MELINDA 07/19/2011 C-VITAMIN B12 10/18/2011 C-KIDNEY STONE ANALYSIS 01/27/2015 C-ASO TITER 07/19/2011 [id number] CITRULLINATED PEPTIDE 05/07 Ultrasound : Soft Tissue Abdomen 023 C-TIBC 05/07/2010 M-Erythrocyte Sedimentation Rate 019 M-Lipid Panel 10/17/2019 M-Lipid Panel 12/20/2018 M-Vitamin D 25 Hydroxy 12/20/2018 M-RA Latex Turbid. 12/20/2018 Physical Therapy : Aquatic Therapy 02/22 Mammogram: Screening 10/03/2024 LIPID PANEL, STANDARD (7600) 07/26/2023 HEMOGLOBIN A1c (496) 07/26/2023 TSH W/REFLEX TO FT4 (19403) 07/26/2023 Future Test Test Name Order Date Mammogram : Left breast 02/10/2010 Insurance Providers Payer Name Payer Address Payer Phone Subscriber Number Group Number Insured Name Patient Relationship to Insured Coverage Start Date Coverage End Date [place] [address] [place] [place] [address] [id number] Nory Ceja Self - patient is the insured [employer] INS [address] [place] [address] [phone] Nory Ceja Self - patient is the insured [email or web address] [address] [place] [address] [address] [place] [address] [phone] ACL Nory Ceja Self - patient is [...]
--- OUTSIDE RECORDS SUMMARY | 2024-10-16 14:31 | XMS_ITS | Clinical Summary ---
Author Organization [employer] ([place], [place], [place], [place]) Address [address] [place] [address] Care Team Providers Care Excellence Manager Name Role Phone Unavailable Primary Care [...] Date Rober rded Speak language other than Armenian at home Not on file 03/26/2023 Want [...] Treatment Not on file Insurance [place] [id number] MEDICARE PART A B BANKERS FIDELITY
--- OUTSIDE RECORDS SUMMARY | 2024-10-16 14:31 | XMS_ITS | Referral Summary ---
Author Organization [employer] ([place], [place], [place], [place]) Address [address] [place] [address] Care Team Providers Care Ip Litigation Paralegal Name Role Phone Unavailable Primary Care Provider [...] Date Rober rded Speak language other than Ukrainian at home Not on file 03/26/2023 Want [...] Treatment Not on file Insurance [place] [id number] MEDICARE PART A B BANKERS FIDELITY
== END 2024-10-16 23:59 | disposition home or self-care (01) ==
LOC: RAD 14:28
PROVIDERS: PCP Nurse Practitioner Family; Visit Provider Nurse Practitioner Family
DX: M16.11 Unilateral primary osteoarthritis, right hip (principal); R93.89 Abnormal findings on diagnostic imaging of other specified body structures
CPT/HCPCS: 73721

== ENCOUNTER 2024-10-29 10:38 | Outpatient (CLI) | payer MEDICARE, OTHER, SELFPAY ==
--- OUTSIDE RECORDS SUMMARY | 2024-10-03 08:30 | XMS_ITS ---
Author Organization [facility] Address [address] [place] [address] Care Team Providers Care Commercial Ocean Clammer Name Role Phone BrandtgabrielSarathCharles Primary Care Provider Amber Bedolla Unavailable [phone] Allergies No Known Allergies Results Component Value Reference Range Notes X ray : Hip, Right Reviewed date:10/09/2024 09:16:21 AM Interpretation: Performing Lab: Notes/Report: Reason For Referral Reason Routine mamm and DEX A at [facility] Diagnosis 1 Medicare annual well ness visit, initial (Z00.00) Referral Organization [facility] Referring Provider First Name Amber Referring Provider Last Name Chioma Referring Provider Speciality [facility] Referred Organization [facility] Referred Address [address] [facility] [address] [facility], [place],[address],[place] Referred Provider Specialty Diagnostic R adiology General Notes Mei Isabel 2024 02:50:30 PM >all orders sent to [facility] Referral Priority Routine REASON FOR VISIT AWV, [...] Status W/U Status Risk Notes Problem Overweight (395009716) Overweight (E66.3) Active confirmed Vital Signs Temperature 98 degrees Fahrenheit 10/03/2024 Heart Rate 78 /min 10/03/2024 Blood pressure systolic 124 mm Hg 10/04/19 25 Blood pressure diastolic 80 mm Hg 025 Height 63 in 10/03/2024 Weight 169 lbs 10/03/2024 BMI 29.93 kg/m2 10/03/2024 Encounters Encounter Location Date Provider Diagnosis [address] [address] 10/03/2024 Amber Bedolla Medicare annual wellness visit, [...] 10/03/2024 10/03/2024, Routine mamm and DEXA at [facility], [address], [place], [address], Next Appt Details Follow Up: 1 Year,Kyung chiu: Progress Notes * Nory CEJA GDOB:[birth year] (69 yo F)Acc No.[id number]:10/03/2024 Progress Notes Patient: Nory ESTEVES Provider: ELIAZAR Albright :1955 A ge:69 Y S ex:Female Date:10/03/2024 Address:[place], [id number] Pcp:Charles Beckford Subjective: * Chief Complaints: * [...] s/p L4-5 fusion and pain management at [facility]. Undergoing nerve blocks to help with pain [...] diabetes, type II. P aternal uncle: diabetes, [place]. P aternal aunt: rheumatoid arthritis, diabetes, HLP, [...] *Please review and pick correct strength-formulation from Nature's Therapy options. If intended option is not shown, [...] 10/03/2024 Generated for Will benson/Jennifer/eTransmitting on: 0 10/29/2024 11:25 AM EDT History and Physical Notes * Examination [...] Bedolla , Routine mamm and DEXA at [facility]
--- OUTSIDE RECORDS SUMMARY | 2024-10-09 05:16 | XMS_ITS ---
Author Organization [facility] Address [address] [place] [address] Care Team Providers Care Trademark Affixer Name Role Phone Charles Beckford Primary Care Provider Amber Bedolla Scott [phone] Results Component Value Reference Range Notes MRI : Hip, Right Reviewed date:10/19/2024 10:43:43 AM Interpretation: Performing Lab: Notes/Report: Encounters Encounter Location Date Provider Diagnosis [facility] [address] [place] [address] 10/09/2024 Amber Bedolla Right hip pain M25.551 and Hip arthritis M16.10 Assessments Encounter Date Diagnosis (ICD Code) Assessment Notes Treatment Notes Treatment Clinical Notes Section Notes 10/09/2024 Right hip pain (ICD-10 - M25.551) 10/09/2024 Hip arthritis (ICD-10 - M16.10) Plan Of Treatment No Information Progress Notes * Nory CEJA GDOB:[birth year] (69 yo F)Acc No.[id number]:10/09/2024 Patient: Oni Nory PICKARD :1955 A ge:69 Y S ex:Female Address:[place] [address] Subjective: * Chief Complaints: * * Medical History: * Surgical History: * Hospitalization/Major Diagno stic Procedure: * Medications: Objective: * Vitals: * Physical Examination: Assessment: * Assessment: 1. R ight hip pain - M25.551 2 . H ip arthritis - M16.10 Plan: * Treatment: * 2.?Hip arthritis?Imaging: MRI : Hip, Right* No Auth neededPower Mei 10/09/2024 09:19:40 AM EDT > * * Procedure Codes: * true * Date: Generated for Will benson/Jennifer/Shandrasmvahid on: 0 10/29/2024 11:25 AM EDT
--- OUTSIDE RECORDS SUMMARY | 2024-10-19 06:16 | XMS_ITS ---
Author Organization [facility] Address [address] [place] [address] Care Team Providers Care Multi Operation Machine Operator Name Role Phone Charles Beckford Primary Care Provider [phone] Amber Bedolla [phone] REASON FOR VISIT US Encounters Encounter Location Date Provider Diagnosis [facility] [address] [place] [address] 10/19/2024 Amber Bedolla Cyst of left ovary N83.202 Assessments Encounter Date Diagnosis (ICD Code) Assessment Notes Treatment Notes Treatment Clinical Notes Section Notes 10/19/2024 Cyst of left ovary (ICD-10 - N83.202) Plan Of Treatment Pending Test Test Name Order Date Ultrasound: Transvaginal 10/19/2024 Progress Notes * Nory CEJA GDOB:[birth year] (69 yo F)Acc No.[id number]:10/19/2024 Patient: Oni Nory PICKARD :1955 A ge:69 Y S ex:Female Address:[place] [address] Subjective: * Chief Complaints: * U S * Medical History: * Surgical History: * Hospitalization/Major Diagno stic Procedure: * Medications: Objective: * Vitals: * Physical Examination: Assessment: * Assessment: 1. C yst of left ovary - N83.202 Plan: * Treatment: * * Procedure Codes: * true * Date: Generated for Will benson/Jennifer/Joseph on: 0 10/29/2024 11:24 AM EDT
--- NOTE | 2024-10-29 10:43 | US_ITS ---
PROCEDURE: US TRANSVAGINAL CLINICAL INDICATION: CYST OF LEFT OVARY COMPARISON: CT CT ABDOMEN PELVIS W CON from 04/09/2024 FINDINGS: Transvaginal sonographic images of the pelvis were obtained. UTERUS: 5.5 cm x 3.9x 2.9 cm anteverted with a combined endometrial thickness of 4.6mm. There are several small nabothian cysts in the cervix. There are multiple small calcifications within the uterus. LEFT OVARY: 3ivw0wby7.6cm with a volume of 1ml. There is a simple appearing cyst in the left adnexa measuring 3.4 cm x 1.8 cm x 2.7 cm. It is separate and inferior to the left ovary and may represent hydrosalpinx or mesenteric cyst. RIGHT OVARY: The right ovary is not visualized. Left ovary is seen appears normal. Doppler flow to left ovary is seen. There is no fluid in the cul-de-sac. IMPRESSION: 1. Anteverted uterus normal in shape and size. The endometrium is thin measuring 4.6 mm. 2. The right ovary is not seen and the left ovary is small. There is a 3.4 cm simple appearing cyst inferior to the left ovary. Possible hydrosalpinx or mesenteric cyst. Suggest follow-up in 3 months to confirm its benign nature. 3. There is no fluid in the cul-de-sac. Dictated by: Lon Arevalo MD 10/29/2024 15:46 Lon Arevalo MD in [place] 10/29/2024 15:46
--- OUTSIDE RECORDS SUMMARY | 2024-10-29 11:25 | XMS_ITS | Patient Health Record ---
Author Organization [facility] Address [address] [place] [address] Care Team Providers Care Glue Maker Name Role Phone Charles Beckford Primary Care Provider [phone] ChiomaAmber Unavailable [phone] Migration, Provider Unavailable Unavailable Allergies No Known Allergies Results Component Value Reference Range Notes M-Comprehensive Metabolic Pa jarret Reviewed date:04/09/2024 02:40:54 [...] AGRATIO 1.9 1.1-1.8 ALP 107 38-126 U/L M-Complete Blood Count Auto Diff Reviewed date:04/09/2024 [...] date:10/09/2024 09:16:21 AM Interpretation: Performing Lab: Notes/Report: MRI : Hip, Right Reviewed date:10/19/2024 10:43:43 AM Interpretation: Performing Lab: Notes/Report: Reason For Referral Reason Routine mamm and DEX A at [facility] Diagnosis 1 Medicare annual well ness visit, initial (Z00.00) Referral Organization [facility] Referring Provider First Name Amber Referring Provider Last Name Chioma Referring Provider Speciality Family Pra ctice Referred Organization [facility] Referred Address [address] [place] [facility] [address], [place], [place],[address],[place] Referred Provider Specialty Diagnostic R adiology General Notes Mei Isabel 2024 02:50:30 PM >all orders sent to [facility] Referral Priority Routine Reason Dr Ordonez at for right hip DJD Diagnosis 1 Right hip pain (M25. 551) Diagnosis 2 Primary osteoarthrit is of right hip (M16.11) Referral Organization [facility] Referring Provider First Name Amber Referring Provider Last Name Chioma Referring Provider Speciality [facility] ctice Referred Organization Referrals Referred Address [address] [place], [place],[address],[place] Referred Provider Specialty Orthopedic S urgery General Notes Mei Isabel 2024 08:26:28 AM >Placed through [facility], Mei Isabel 10/23/2024 12:11:09 PM >Scheduled 11/06/2024 8:40 AM [facility] Charles Ordonez MD New Patient Referral Priority Routine Referral Appointment Date 11/06/2024 Reason TV US Diagnosis 1 Cyst of left ovary ( N83.202) Referral Organization [facility] Referring Provider First Name Amber Referring Provider Last Name Chioma [facility]erred Organization [facility] Referred Address [address] [place] [facility] [address], [place], [place],[address],[place] Referred Provider Specialty Diagnostic R adiology General Notes Mei Isabel 2024 10:28:24 AM >sent to [facility] to schedule Referral Priority Routine Medications Medication SIG (Take, [...] - OLDER IM Intramuscular 12/20/2018 Administer ed Fluvirin--Influenza vaccine 3+ year Unknown 12/26/2006 Administered Fluvirin--Influenza vaccine 3+ year IM Intramuscular 01/09/2008 Administered Fluvirin--Influenza vaccine 3+ year IM Intramuscular 11/29/2008 Administered Fluvirin--Influenza vaccine 3+ year IM Intramuscular 12/11/2009 Administered Fluvirin--Influenza vaccine 3+ year IM Intramuscular 12/18/2010 Administered Fluvirin--Influenza vaccine 3+ year IM Intramuscular 12/07/2011 Administered Fluvirin--Influenza vaccine 3+ year IM Intramuscular 12/10/2013 Administered Flublok IM Intramuscular 11/29/2019 Administered Boostrix IM Intramuscular 08/17/2023 Administered Arexvy Unknown 08/17/2023 Administered Adacel (Tdap) IM Intramuscular 03/14/2008 Administered Problems Problem Type SNOMED Code ICD Code Onset Dates Problem Status W/U Status Risk Notes Problem Overweight (230027726) Overweight (E66.3) Active confirmed Problem Sciatica (53233346) Lumbago with sciatica, right side (M54.41) Active confirmed Problem Body mass index 30.00 to 34.99 (139061752698317) BMI 31.0-31.9,adult (Z68.31) Active confirmed Problem Obese class I (671894984599173) BMI 33.0-33.9,adult (Z68.33) Active confirmed Problem Chronic pain (68328379) Other chronic pain (G89.29) Active confirmed Problem Gastroesophageal reflux disease (191001533) Gastroesophageal reflux disease, esophagitis presence not specified (K21.9) Active confirmed Problem Osteoarthritis of knee (061116322) Primary osteoarthritis of both knees (M17.0) Active confirmed Problem Recurrent falls (308293733) Frequent falls (R29.6) Active confirmed Problem Mood disorder (58250372) Mood disorder (F39) Active confirmed Problem Diverticulitis of colon (243033305) Acute diverticulitis (K57.92) Active confirmed Problem Rheumatoid arthritis (22438551) Rheumatoid arthritis involving multiple sites with positive rheumatoid factor (M05.79) Active confirmed Problem Overactive urinary bladder (disorder) (071871720) OAB (overactive bladder) (N32.81) Active confirmed Problem Iron deficiency anemia (74288705) Iron deficiency anemia, unspecified iron deficiency anemia type (D50.9) Active confirmed Problem Degeneration of lumbar intervertebral disc (25543199) Lumbar degenerative disc disease (M51.36) Active confirmed Problem Joint pain (68618024) Arthralgia of multiple sites (M25.50) Active confirmed Problem BMI 25-29 - overweight (182478687) BMI 29.0-29.9,adult (Z68.29) Active confirmed Problem Localized, primary osteoarthritis of the pelvic region and thigh (728556198) Primary osteoarthritis of right hip (M16.11) Active confirmed Problem History of prosthetic arthroplasty of left hip (4789349624057585) 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) Active confirmed Problem Renal cyst (781557068) Renal cyst (N28.1) Active confirmed Problem Sciatica (09943466) Acute left-s ided low back pain with left-sided sciatica (M54.42) Active confirmed Problem Localized, primary osteoarthritis of the pelvic region and thigh (374416810) Primary osteoarthritis of left hip (M16.12) Active confirmed Problem Suprapatellar bursitis of left knee (9212532960534565) Suprapatellar bursitis of left knee (M70.52) Active confirmed Problem Esophageal dysphagia (64865052) Esophageal dysphagia (R13.10) Active confirmed Problem Suprapatellar bursitis of right knee (6380727987937967) Suprapatellar bursitis of right knee (M70.51) Active confirmed Problem Arthritis of hip (75138970) Hip arthritis (M16.10) Active confirmed Problem History and physical examination, follow-up (856348328) Postoperative examination (Z09) Active confirmed Problem Difficulty walking (150456725) Difficulty walking (R26.2) Active confirmed Vital Signs Heart Rate 78 /min 10/03/2024 Temperature 98 degrees Fahrenheit 10/03/2024 Blood pressure diastolic 80 mm Hg 10/03/2024 Height 63 in 10/03/2024 Blood pressure systolic 124 mm Hg 10/03/2024 Weight 169 lbs 10/03/2024 BMI 29.93 kg/m2 10/03/2024 Encounters Encounter Location Date Provider Diagnosis [facility] [address] [place] [address] 06/09/2024 Provider Migration [facility] [address] [place] [address] 04/09/2024 Amber Bedolla LLQ pain R10.32 and Acute diverticulitis K57.92 [facility] [address] [address] 10/03/2024 Amber Bedolla Medicare annual wellness visit, [...] mammogram Z12.31 and Asymptomatic postmenopausal state Z78.0 [facility] [address] [place] [address] 03/31/2024 Amber Bedolla OAB (overactive bladder) N32.81 [facility] [address] [place] [address] 04/12/2024 Amber Chioma LLQ pain R10.32 [facility] [address] [place] [address] 06/20/2024 Amber Chioma [facility] [address] [place] [address] 07/02/2024 Amber Chioma [facility] [address] [place] [address] 08/27/2024 Amber Chioma [facility] [address] [place] [address] 10/09/2024 Amber Chioma Right hip pain M25.5 51 and Hip arthritis M16.10 [facility] [address] [place] [address] 10/19/2024 Amber Bedolla Cyst of left ovary [...] coverage. 04/12/2024 LLQ pain (ICD-10 - R10.32) 10/09/2024 Right hip pain (ICD-10 - M25.551) 10/19/2024 Cyst of left ovary (ICD-10 - N83.202) 10/03/2024 Medicare annual wellness visit, initial (ICD-10 - Z00.00) Mamm and DEXA this fall 10/03/2024 Arthralgia of multiple sites (ICD-10 - M25.50) multiple specialists following 10/03/2024 Renal cyst (ICD-10 - N28.1) stable on imaging, urology did not recommend routine FU 10/09/2024 Hip arthritis (ICD-10 - M16.10) 10/03/2024 Mood disorder (ICD-10 - F39) stable [...] C-KIDNEY STONE ANALYSIS 01/27/2015 C-ASO TITER 07/19/2011 [id number] CITRULLINATED PEPTIDE 05/07 Ultrasound : Soft Tissue Abdomen 023 C-TIBC 05/07/2010 M-Erythrocyte Sedimentation Rate 019 M-Lipid Panel 12/20/2018 M-Lipid Panel 10/17/2019 M-Vitamin D 25 Hydroxy 12/20/2018 M-RA Latex Turbid. 12/20/2018 Physical Therapy : Aquatic Therapy 02/22 Mammogram: Screening 10/03/2024 LIPID PANEL, STANDARD (7600) 07/26/2023 HEMOGLOBIN A1c (496) 07/26/2023 TSH W/REFLEX TO FT4 (22899) 07/26/2023 Ultrasound: Transvaginal 10/19/2024 Future Test Test Name Order Date Mammogram : Left breast 02/10/2010 Insurance Providers Payer Name Payer Address Payer Phone Subscriber Number Group Number Insured Name Patient Relationship to Insured Coverage Start Date Coverage End Date [place] [address] [place] [place] [address] [id number] Nory Ceja Self - patient is the insured [employer] INS [address] [place] [address] [phone] Nory Ceja Self - patient is the insured [employer] [address] [place] [address] [address] [place] [address] ACL Nory Ceja Self - patient is [...] Left hip replacement [facility]-right total knee 02/2019 [facility]- Left total knee 01/2019 UTI 01/1980 x 3
--- OUTSIDE RECORDS SUMMARY | 2024-10-29 11:26 | XMS_ITS | Clinical Summary ---
Author Organization [employer] ([place], [place], [place], [place]) Address [address] [place] [address] Care Team Providers Care Hydraulic Pile Hammer Operator Name Role Phone Unavailable Primary Care [...] Date Rober rded Speak language other than Iranian at home Not on file 03/26/2023 Want [...] Treatment Not on file Insurance [place] Tate [id number] MEDICARE PART A B BANKERS FIDELITY
--- OUTSIDE RECORDS SUMMARY | 2024-10-29 11:26 | XMS_ITS | Referral Summary ---
Author Organization [employer] ([place], [place], [place], [place]) Address [address] [place] [address] Care Team Providers Care Shift Production Supervisor Name Role Phone Unavailable Primary Care Provider [...] Date Rober rded Speak language other than Filipino at home Not on file 03/26/2023 Want [...] Treatment Not on file Insurance KENYA Tate [id number] MEDICARE PART A B BANKERS FIDELITY
--- OUTSIDE RECORDS SUMMARY | 2024-10-29 11:26 | XMS_ITS | Clinical Summary ---
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 12/30/2021 Rheumatoid arthritis 12/09/2021 Anterolisthesis of lumbar spine 09/28/2021 Overview (09/28/2021): Added automatically from request for surgery [id number] Other spondylosis, lumbosacral region 07/05/2021 Weakness 07/05/2021 Traumatic complete tear of right rotator cuff Herniation of lumbar intervertebral disc 020 GERD (gastroesophageal reflux disease) 9 Encounters Date Type Department Care Team Description 10/19/2024 Community [facility] [address] [place] [address] Amber Bedolla APRN Primary osteoarthritis of right hip (Primary Dx); Right hip pain from Last 3 Months Family History Medical [...] drink first t mony in the morning (EYE-PRACTICING DERMATOLOGIST) to steady your nerves or to get [...] 10/12/2023 11:00 AM EDT Plan of Treatment Upcoming Encounters Date Type Department Care Team (Late st Contact Info) Description 11/06/2024 8:40 AM EDT Office Visit Medical Office Building [facility] [address], [address] [place] [address] Charles Ordonez MD [address] [place] [address] Health Maintenance Due Date Last Done Comments [...] 01/06/2006 UKY-Zoster Vaccines (1 of 2) 01/06/2006 XIL-[id number]-32 Vaccine ( season) 2023 01/19/2021, 04/14/2020, 03/14/2020 [...] this topic Medical Devices Implanted Type Area Performance Architect Device Identifier Shelf Expiration Date Model / Serial / Lot Lindsey All Suture Qfix 2.8mm - [id number] Implanted:Qty : 1 on 02/04/2023 by Shadi Mims MD at [facility] Lindsey Right: Shoulder [employer] (Acufex)-[id number] 09/18/2025 [id number] / / [id number] Lindsey Ultra Twinfix 5.5 - [id number] Implanted:Qty : 2 on 02/04/2023 by Shadi Mims MD at [facility] Lindsey [employer] (Acufex)-[id number] 10/29/2027 [id number] / / [id number] Hip Hip Left: Pelvis Knee Knee Bilateral: Knee Graft Vivigen 5cc - [id number] Implanted:Qty : 1 on 12/30/2021 by Tarik Cadet MD at [facility] N/A: Spine Lumbar [facility]-[id number] 12/03/2022 [id number] / / [id number] Single Inner Setscrew - [id number] Implanted:Qty : 4 on 12/30/2021 by Tarik Cadet MD at [facility] N/A: Spine Lumbar DePuy Spine [employer] [id number] 12/30/2022 [id number] / / Screw 6.0mm Viper Cfx Fen Xtab 45mm - [id number] Implanted:Qty : 2 on 12/30/2021 by Tarik Cadet MD at [facility] N/A: Spine Lumbar DePuy Spine [employer] [id number] 12/30/2022 [id number] / / Screw 7.0mm Viper Cfx Fen Xtab 45mm - [id number] Implanted:Qty : 2 on 12/30/2021 by Tarik Cadet MD at [facility] N/A: Spine Lumbar DePuy Spine [employer] LP-[id number] 12/30/2022 [id number] / / Tlif-C Ui 10mm 8deg 28/10 - [id number] Implanted:Qty : 1 on 12/30/2021 by Tarik Cadet MD at [facility] N/A: Spine Lumbar DePuy Spine [employer] LP-[id number] 01/04/2025 [id number] / / [id number] Kamari Viper2 Lordotic 40mm - [id number] Implanted:Qty : 1 on 12/30/2021 by Tarik Cadet MD at [facility] N/A: Spine Lumbar DePuy Spine [employer] [id number] 12/29/2022 [id number] / / Kamari Viper2 Lordotic 45mm - [id number] Implanted:Qty : 1 on 12/30/2021 by Tarik Cadet MD at [facility] N/A: Spine Lumbar DePuy Spine [employer] LP-[id number] 12/29/2022 [id number] / / Insurance MEDICARE [facility] Advance Directives Documents on File Type Date Recorded Patient Patient Care Manager Expl anation Advance Directives and Living Will 12/30/2021 Care Teams Submarine Element Coordinator Relationship Specialty Start Date End Date Amber Bedolla APRN [address] [place] [address] PCP - General 07/18/20 Tarik Cadet MD [id number] [place] [address] Surgeon Neurosurgery 05/25/21
--- OUTSIDE RECORDS SUMMARY | 2024-10-29 11:26 | XMS_ITS | Encounter Summary ---
Author Organization [facility] Address [address] [place] [address] Care Team Providers Care Carrier Blower Name Role Phone Amber Bedolla APRN Primary Care Provider [phone] Tarik Cadet MD Unavailable [phone] Reason for Referral * Consultation (Routine) - Authorized Specialty Diagnoses / Procedures Referred By Baltazar marie Referred To Contact Orthopaedic Surgery Diagnoses Primary osteoarthritis of right hip Right hip pain Amber Bedolla [employer] [address] [address] Phone: tel: fax: Charles Ordonez MD [address] [facility] [address] [place] [address] Phone: tel: fax: Referral ID Status Reason Start Date Expiration Date Visits Requested Visits Authorized [id number] Authorized Specialty Services Required 10/19/2024 04/20/2026 1 1 Encounter Details Date Type Department Care Team (Latest Contact Info) Description 10/19/2024 Community [facility] Community Practice [address] [place] [address] Amber Bedolla APRN [address] [id number] Primary osteoarthritis of right hip (Primary Dx); Right hip pain Social History Tobacco Use Types Packs/Day Years [...] drink first t mony in the morning (EYE-ROLL WINDER) to steady your nerves or to get [...] as of this encounter Plan of Treatment Upcoming Encounters Date Type Department Care Team (Late st Contact Info) Description 11/06/2024 8:40 AM EDT Office Visit Medical Office Building Surgery [facility] [address] [facility], [address] [place] [address] Charles Ordonez MD [address] [facility] [address] [place] [address] Scheduled Referrals Name Type Priority Associated Diagnoses Orde r Schedule Ambulatory referral to General Orthopaedics Outpatient Referral Routine Primary osteoarthritis of right hip Right hip pain Expected: 10/19/2024 (Approximate), Expires: 04/22/2026 documented as of this encounter Visit Diagnoses Diagnosis Primary osteoarthritis of right hip- Primary Right hip pain Pain in joint, pelvic region and thigh documented in this encounter Additional Health Concerns Assessment Noted Time A fall risk assessment has been complete d for the patient 10/12/2023 11:00 AM EDT A Body Mass Index follow-up plan has been documented for the patient 10/12/2023 12:22 PM EDT documented as of this encounter Care Teams Carrier Blower Relationship Specialty Start Date End Date Amber Bedolla APRN [address] [address] PCP - General 07/18/20 Tarik Cadet MD [address] [address] Surgeon Neurosurgery 05/25/21 documented as of this encounter
--- NOTE | 2024-10-29 11:37 | XR_ITS ---
FINAL REPORT TECHNIQUE: Bone densitometry calculations of the left forearm and right hip were obtained. CLINICAL HISTORY: SCREENING COMPARISON: None FINDINGS: Using the mid, the bone mineral density of the left forearm is 0.676 g/cm2, corresponding to T-score of -0.3 and a Z score of 1.7. This is within the range of normal. Using the right hip, the bone mineral density of the femoral neck is 0.865 g/cm2, corresponding to a T-score of -0.6 and a Z-score of 0.8. This is within the range of normal. NOTE: T-score: Standard deviation compared with peak bone mass of young adult mean. *Following the recommendations of the International Society of Bone densitometry, classification of hip BMD is based on the lower of two T-scores; total hip or femoral neck. IMPRESSION: 1. Bone mineral density of the left forearm within the range of normal. 2. Bone mineral density of the right femoral neck within the range of normal. Reviewed, Interpreted and Dictated by Jazmyn Valdes MD Transcribed by Arminda Combs Authenticated and [facility]
== END 2024-10-29 23:59 ==
LOC: RAD 10:40
PROVIDERS: PCP Nurse Practitioner Family; Visit Provider Nurse Practitioner Family
DX: N83.202 Unspecified ovarian cyst, left side; Z78.0 Asymptomatic menopausal state; M81.0 Age-related osteoporosis without current pathological fracture; Z12.31 Encounter for screening mammogram for malignant neoplasm of breast
CPT/HCPCS: 76830; 77063; 77067; 77080